=== PATIENT | male | born 1965 | race Caucasian/White ===

== ENCOUNTER → 2017-04-20 | Outpatient (CLI) | payer BC ==
--- NOTE | 2017-04-21 07:53 | US ---
EXAMINATION TYPE: US bladder DATE OF EXAM: 04/20/2017 COMPARISON: NONE CLINICAL HISTORY: R35.0 Increased frequency of urine. Patient stated has decreased urinary output, no t urinary frequency. EXAM MEASUREMENTS: Post Void Residual Volume: 4.2 mL Color Doppler performed to assess ureteral jets. Bilateral Jets seen: only right jet was seen, left jet not seen after 3 minute observation. Normal Post Void Residual (less than 50ml): yes Bladder is initially poorly distended without intraluminal mass or wall thickening. Distal right jet was identified. Distal left jet is not seen. Minimal residual urine is seen after voiding. IMPRESSION: As above.
== END | disposition home or self-care (01) ==
LOC: RADUSWWP 15:49
PROVIDERS: ATTEND Family Medicine
DX: R35.0 Frequency of micturition (principal)
CPT/HCPCS: 76857

== ENCOUNTER 2017-07-29 09:20 | Emergency (ER) | payer BC ==
[2017-07-29 09:32] VITALS: RESP 18; TEMP 97.3
--- NOTE | 2017-07-29 10:29 | XR ---
EXAMINATION TYPE: XR knee complete LT DATE OF EXAM: 07/29/2017 COMPARISON: NONE HISTORY: Pain TECHNIQUE: Four views are submitted. FINDINGS: Advanced arthropathy of the knee and patellofemoral joints. Hypertrophic spurring noted. Findings are compatible osteoarthritis. No erosive change or acute fracture. Bony densities are seen within the s uprapatellar bursa and also within the anterior margin of the knee joint. Loose bodies in the differe ntial diagnosis. IMPRESSION: 1. Severe osteoarthritis 2. Small suprapatellar joint effusion with probable loose bodies.
[2017-07-29 10:49] VITALS: BP 127/66; PULSE 74
--- NOTE | 2017-07-29 10:56 | ED ---
General Adult HPI - General Chief complaint: Extremity Injury, Lower Stated complaint: knee pain Time Seen by Provider: 07/29/17 09:56 Source: patient, RN notes reviewed Mode of arrival: wheelchair Limitations: no limitations - History of Present Illness Initial comments: 51-year-old male who presents emergency room today with a chief complaint of injury to the left knee that occurred 1 day ago. Patient does admit that he was walking yesterday stepped wrong felt a pop in the left knee. He does admit to some difficulty ambulating today. He doesn't some mild swelling. Patient denies any other complaints or associated symptoms at this time. Patient denies any recent fever, chills, shortness of breath, chest pain, back pain, abdominal pain, nausea or vomiting, numbness or tingling, dysuria or hematuria, constipation or diarrhea, headaches or visual changes, or any other complaints. - Related Data Home Medications Medication Instructions Recorded Confirmed Ibuprofen [Motrin] 400 mg PO Q6HR PRN 07/29/17 07/29/17 Allergies Allergy/AdvReac Type Severity Reaction Status Date / Time No Known Allergies Allergy Verified 07/29/17 10:40 Review of Systems ROS Statement: Those systems with pertinent positive or pertinent negative responses have been documented in the HPI. ROS Other: All systems not noted in ROS Statement are negative. Past Medical History Past Medical History: Asthma, COPD, Musculoskeletal Disorder, Sleep Apnea/CPAP/ BIPAP Additional Past Medical History / Comment(s): Morbid obesity History of Any Multi-Drug Resistant Organisms: None Reported Past Surgical History: Appendectomy, Orthopedic Surgery, Tonsillectomy Additional Past Surgical History / Comment(s): bilateral knee arthroscopy, surgery for sleep apnea, carpal tunnel , uvula and adnoids removed for sleep apnea Past Anesthesia/Blood Transfusion Reactions: No Reported Reaction Past Psychological History: No Psychological Hx Reported Smoking Status: Former smoker Past Alcohol Use History: None Reported Past Drug Use History: None Reported - Past Family History Mother History Unknown: Yes Family Medical History: Deep Vein Thrombosis (DVT) General Exam - General Exam Comments Initial Comments: General: The patient is awake and alert, in no distress, and does not appear acutely ill. Neck: The neck is supple, there is no tenderness or JVD. Cardiovascular: There is a regular rate and rhythm. No murmur, rub or gallop is appreciated. Respiratory: Lungs are clear to auscultation, respirations are non-labored, breath sounds are equal. No wheezes, stridor, rales, or rhonchi. Musculoskeletal: Patient does have normal appearance of the left knee no obvious deformity. He does have limited range of motion of due to pain. Patient tender to palpation on the medial aspect. Her sensations are intact. Pulses are equal bilaterally 2+. Strength is 4/5 due to pain. Neurological: A&O x 3. CN II-XII intact, There are no obvious motor or sensory deficits. Coordination appears grossly intact. Speech is normal. Skin: Skin is warm and dry and no rashes or lesions are noted. Psychiatric: Normal mood and affect. Limitations: no limitations Course Vital Signs 07/29/17 09:30 Temperature 97.3 F L Pulse Rate 89 Respiratory 18 Rate Blood Pressure 134/88 O2 Sat by Pulse 96 Oximetry Medical Decision Making - Medical Decision Making X-rays are reviewed and shows no acute fracture dislocation. There is evidence for probable loose bodies. Patient will have a knee immobilizer placed advised follow-up with orthopedics. Advised continued ice elevate the affected area. Patient states understanding and is in agreement. Disposition Clinical Impression: Knee injury Disposition: HOME SELF-CARE Condition: Good Instructions: Knee Pain (ED) Additional Instructions: Please use knee immobilizer up and moving around. Please follow-up with the orthopedic doctor over the next 2 days for symptoms. Please continue to ice elevate the affected area and use ibuprofen for pain. History emergency room for any other concerns or competitions. Referrals: Alfredo Hope DO [Primary Care Provider] - 1-2 days Andre Mcnamara MD [STAFF PHYSICIAN] - 1-2 days Time of Disposition: 10:50
== END 2017-07-29 11:11 | disposition home or self-care (01) ==
LOC: EC 09:20
DX: S89.92XA Unspecified injury of left lower leg, initial encounter (principal); G47.30 Sleep apnea, unspecified; Z99.89 Dependence on other enabling machines and devices; Z98.890 Other specified postprocedural states; Z87.891 Personal history of nicotine dependence; Y93.01 Activity, walking, marching and hiking
CPT/HCPCS: 73562; 99283; L1830

== ENCOUNTER 2018-07-01 21:01 | Inpatient (IN) | payer BC ==
[2018-07-01] MEDS ORDERED: ALBUTEROL NEBULIZED 2.5 MG/3 ML INHALATION STA (21:15)
[2018-07-01] MEDS ORDERED: DEXAMETHASONE SOD PHOSPHATE 10 MG/ML 1 ML VIAL IV STA (21:15)
[2018-07-01] MEDS ORDERED: ACETAMINOPHEN IV (For NPO) 1,000 MG in EMPTY BAG 1 BAG IVPB STA (21:37)
[2018-07-01 21:41] LABS: Basophils % (A) 0 %; Eosinophils # (A) 0.2 k/uL (0-0.7); Eosinophils % (A) 1 %; HCT 53.4 % (39.0-53.0); HGB 16.1 gm/dL (13.0-17.5); Hypochromasia Slight; Lymphocytes # (A) 0.9 k/uL (1.0-4.8); Lymphocytes % (A) 6 %; MCH 27.5 pg (25.0-35.0); MCHC 30.2 g/dL (31.0-37.0); MCV 91.2 fL (80.0-100.0); Mean Platelet Volume 6.8; Monocytes # (A) 0.3 k/uL (0-1.0); Monocytes % (A) 2 %; Neutrophils # (A) 12.7 k/uL (1.3-7.7); Neutrophils % (A) 90 %; Platelet Count 263 k/uL (150-450); RBC 5.86 m/uL (4.30-5.90); RDW 13.9 % (11.5-15.5); WBC 14.1 k/uL (3.8-10.6)
[2018-07-01 21:50] LABS: INR 0.9 (<1.2); Partial Thromboplastin Time 22.2 sec (22.0-30.0); Prothrombin Time 9.4 sec (9.0-12.0)
--- NOTE | 2018-07-01 21:53 | XR ---
EXAMINATION TYPE: XR chest 1V portable DATE OF EXAM: 07/01/2018 COMPARISON: 03/29/2016 HISTORY: Asthma. COPD. Chest pain TECHNIQUE: Single frontal view of the chest is obtained. FINDINGS: There is moderate consolidation in the left mid lung. The right lung is fairly clear. Ther e is no heart failure. IMPRESSION: There is new large area of consolidation in the left lung compared to old exam and consi stent with bronchopneumonia.
[2018-07-01] MEDS ORDERED: cefTRIAXone IN SWFI 2,000 MG/20 ML SYRINGE IVP STA (21:57)
[2018-07-01] MEDS ORDERED: AZITHROMYCIN 500 MG in DEXTROSE 5% IN WATER 250 ML IVPB STA ×2 (21:57)
[2018-07-01 22:04] LABS: ALT 31 U/L (21-72); AST 26 U/L (17-59); Alkaline Phosphatase 99 U/L (38-126); Anion Gap 9 mmol/L; Blood Urea Nitrogen 10 mg/dL (9-20); Carbon Dioxide 31 mmol/L (22-30); Chloride 100 mmol/L (98-107); Glucose 165 mg/dL (74-99); Potassium 4.3 mmol/L (3.5-5.1); Sodium 140 mmol/L (137-145); Total Bilirubin 0.6 mg/dL (0.2-1.3); Total Protein 6.7 g/dL (6.3-8.2)
[2018-07-01 22:09] LABS: Creatine Kinase 84 U/L (55-170)
[2018-07-01 22:20] LABS: Creatine Kinase MB 2.3 ng/mL (0.0-2.4); Troponin I <0.012 ng/mL (0.000-0.034)
[2018-07-01] MEDS ORDERED: SODIUM CHLORIDE 0.9% 1,000 ML IV ONE (22:25)
[2018-07-01] MEDS ORDERED: IPRATROPIUM-ALBUTEROL 3 ML NEB INHALATION PRN ×2 (22:29→23:53)
[2018-07-01] MEDS ORDERED: SODIUM CHLORIDE 0.9% 1,000 ML IV SCH (22:30)
[2018-07-01] MEDS ORDERED: ACETAMINOPHEN TAB 325 MG TAB PO PRN (22:31)
[2018-07-01] MEDS ORDERED: VANCOMYCIN IV PER PHARMACY 1 EACH MISC MISCELLANE PRN (22:32)
--- NOTE | 2018-07-01 22:38 | ED ---
General Adult HPI - General Chief complaint: Shortness of Breath Stated complaint: asthma attack Time Seen by Provider: 07/01/18 21:05 Source: patient, RN notes reviewed, old records reviewed Mode of arrival: wheelchair Limitations: physical limitation - History of Present Illness Initial comments: 52-year-old male presenting with cough and dyspnea. Patient states he has baseline dyspnea secondary to COPD. He states that he developed worsening dyspnea and productive cough over the past 12 hours. Cough is productive of blood-tinged sputum. Patient states he did have some preceding dyspnea although this was atypical for the patient. Patient denies chest pain. Denies abdominal pain. Denies nausea vomiting. Denies lower extremity swelling. No history of CAD or CHF. He does have history of COPD and sleep apnea. - Related Data Home Medications Medication Instructions Recorded Confirmed Furosemide [Lasix] 40 mg PO BID 07/01/18 07/01/18 Spironolactone [Aldactone] 25 mg PO DAILY 07/01/18 07/01/18 Allergies Allergy/AdvReac Type Severity Reaction Status Date / Time No Known Allergies Allergy Verified 07/01/18 21:41 Review of Systems ROS Statement: Those systems with pertinent positive or pertinent negative responses have been documented in the HPI. ROS Other: All systems not noted in ROS Statement are negative. Past Medical History Past Medical History: Asthma, Heart Failure, COPD, Musculoskeletal Disorder, Sleep Apnea/CPAP/BIPAP Additional Past Medical History / Comment(s): Morbid obesity, History of Any Multi-Drug Resistant Organisms: None Reported Past Surgical History: Appendectomy, Orthopedic Surgery, Tonsillectomy Additional Past Surgical History / Comment(s): bilateral knee arthroscopy, surgery for sleep apnea, carpal tunnel , uvula and adnoids removed for sleep apnea, Past Anesthesia/Blood Transfusion Reactions: No Reported Reaction Past Psychological History: No Psychological Hx Reported Smoking Status: Former smoker Past Alcohol Use History: None Reported Past Drug Use History: None Reported - Past Family History Mother History Unknown: Yes Family Medical History: Deep Vein Thrombosis (DVT) General Exam Limitations: physical limitation General appearance: alert, in no apparent distress Head exam: Present: atraumatic, normocephalic Eye exam: Present: normal appearance, PERRL ENT exam: Present: normal exam Neck exam: Present: normal inspection. Absent: tenderness, meningismus Respiratory exam: Present: respiratory distress, wheezes, rhonchi, decreased breath sounds Cardiovascular Exam: Present: normal rhythm, tachycardia GI/Abdominal exam: Present: soft. Absent: distended, tenderness, guarding Extremities exam: Present: normal inspection, normal capillary refill. Absent: pedal edema Neurological exam: Present: alert, oriented X3, CN II-XII intact. Absent: motor sensory deficit Psychiatric exam: Present: normal affect, normal mood Skin exam: Present: warm, dry, intact. Absent: cyanosis, diaphoretic Course Vital Signs 07/01/18 07/01/18 07/01/18 21:04 21:15 21:30 Temperature 101.2 F H Pulse Rate 121 H 114 H Respiratory 36 H Rate Blood Pressure 161/89 O2 Sat by Pulse 73 L 83 L Oximetry 07/01/18 07/01/18 07/01/18 21:48 21:50 22:16 Temperature 99.3 F Pulse Rate 118 H 116 H 119 H Respiratory 28 H 28 H Rate Blood Pressure 156/72 148/70 O2 Sat by Pulse 94 L 91 L Oximetry EKG Findings - EKG Comments: EKG Findings:: EKG: Sinus tachycardia, baseline artifact secondary to tremor, incomplete right bundle, rate of 122, MO interval 134, QRS duration 110, QTC 447 Medical Decision Making - Medical Decision Making 52-year-old male presenting with severe cough and dyspnea. Initially patient is tachypneic, hypoxic, tachycardic and febrile. Patient has bilateral rhonchi and decreased breath sounds. He is coughing up blood-tinged sputum. Chest x- ray obtained, there is near complete consolidation of the left lung. Patient is given IV hydration, albuterol, steroids, and started on antibiotics to cover community-acquired pneumonia in the emergency department. He is also placed on BiPAP for respiratory support. His oxygenation does improve with BiPAP. He has an elevated white blood cell count 14, stable hemoglobin, negative troponin and BNP. CO2 is 31 consistent with some chronic retention of carbon dioxide. Patient will be admitted for continued IV antibiotics. He will be continued on albuterol as well as steroids. Pulmonology placed on consult. He will be admitted to a monitored bed. - Lab Data Result diagrams: 07/01/18 21:19 07/01/18 21:19 Lab Results 07/01/18 07/01/18 07/01/18 Range/Units 21:19 21:19 21:19 WBC 14.1 H (3.8-10.6) k/uL RBC 5.86 (4.30-5.90) m/uL Hgb 16.1 (13.0-17.5) gm/dL Hct 53.4 H (39.0-53.0) % MCV 91.2 (80.0-100.0) fL MCH 27.5 (25.0-35.0) pg MCHC 30.2 L (31.0-37.0) g/dL RDW 13.9 (11.5-15.5) % Plt Count 263 (150-450) k/uL Neutrophils % 90 % Lymphocytes % 6 % Monocytes % 2 % Eosinophils % 1 % Basophils % 0 % Neutrophils # 12.7 H (1.3-7.7) k/uL Lymphocytes # 0.9 L (1.0-4.8) k/uL Monocytes # 0.3 (0-1.0) k/uL Eosinophils # 0.2 (0-0.7) k/uL Basophils # 0.0 (0-0.2) k/uL Hypochromasia Slight PT (9.0-12.0) sec INR (<1.2) APTT (22.0-30.0) sec Sodium 140 (137-145) mmol/L Potassium 4.3 (3.5-5.1) mmol/L Chloride 100 (98-107) mmol/L Carbon Dioxide 31 H (22-30) mmol/L Anion Gap 9 mmol/L BUN 10 (9-20) mg/dL Creatinine 0.60 L (0.66-1.25) mg/dL Est GFR (CKD-EPI)AfAm >90 (>60 ml/min/1.73 sqM) Est GFR (CKD-EPI)NonAf >90 (>60 ml/min/1.73 sqM) Glucose 165 H (74-99) mg/dL Plasma Lactic Acid Dionicio (0.7-2.0) mmol/L Calcium 9.0 (8.4-10.2) mg/dL Total Bilirubin 0.6 (0.2-1.3) mg/dL AST 26 (17-59) U/L ALT 31 (21-72) U/L Alkaline Phosphatase 99 (38-126) U/L Total Creatine Kinase 84 (55-170) U/L CK-MB (CK-2) 2.3 (0.0-2.4) ng/mL CK-MB (CK-2) Rel Index 2.7 Troponin I <0.012 (0.000-0.034) ng/mL NT-Pro-B Natriuret Pep pg/mL Total Protein 6.7 (6.3-8.2) g/dL Albumin 4.0 (3.5-5.0) g/dL 07/01/18 07/01/18 07/01/18 Range/Units 21:19 21:19 21:19 WBC (3.8-10.6) k/uL RBC (4.30-5.90) m/uL Hgb (13.0-17.5) gm/dL Hct (39.0-53.0) % MCV (80.0-100.0) fL MCH (25.0-35.0) pg MCHC (31.0-37.0) g/dL RDW (11.5-15.5) % Plt Count (150-450) k/uL Neutrophils % % Lymphocytes % % Monocytes % % Eosinophils % % Basophils % % Neutrophils # (1.3-7.7) k/uL Lymphocytes # (1.0-4.8) k/uL Monocytes # (0-1.0) k/uL Eosinophils # (0-0.7) k/uL Basophils # (0-0.2) k/uL Hypochromasia PT 9.4 (9.0-12.0) sec INR 0.9 (<1.2) APTT 22.2 (22.0-30.0) sec Sodium (137-145) mmol/L Potassium (3.5-5.1) mmol/L Chloride (98-107) mmol/L Carbon Dioxide (22-30) mmol/L Anion Gap mmol/L BUN (9-20) mg/dL Creatinine (0.66-1.25) mg/dL Est GFR (CKD-EPI)AfAm (>60 ml/min/1.73 sqM) Est GFR (CKD-EPI)NonAf (>60 ml/min/1.73 sqM) Glucose (74-99) mg/dL Plasma Lactic Acid Dionicio 1.4 (0.7-2.0) mmol/L Calcium (8.4-10.2) mg/dL Total Bilirubin (0.2-1.3) mg/dL AST (17-59) U/L ALT (21-72) U/L Alkaline Phosphatase (38-126) U/L Total Creatine Kinase (55-170) U/L CK-MB (CK-2) (0.0-2.4) ng/mL CK-MB (CK-2) Rel Index Troponin I (0.000-0.034) ng/mL NT-Pro-B Natriuret Pep 366 pg/mL Total Protein (6.3-8.2) g/dL Albumin (3.5-5.0) g/dL Critical Care Time Critical Care Time: Yes Total Critical Care Time: 35 Disposition Clinical Impression: Acute exacerbation of chronic obstructive airways disease, Community acquired pneumonia, Community acquired bacterial pneumonia Disposition: ADMITTED IP TO THIS [facility] Condition: Serious Is patient prescribed a controlled substance at d/c from ED?: No Referrals: Alfredo Hope DO [Primary Care Provider] - 1-2 days Decision to Admit Reason: Admit from EC Decision Date: 07/01/18 Decision Time: 22:38
[2018-07-01] MEDS ORDERED: VANCOMYCIN 2,500 MG in SODIUM CHLORIDE 0.9% 500 ML IVPB ONE (23:00)
[2018-07-01] MEDS ORDERED: MELATONIN 3 MG TABLET PO PRN (23:53)
[2018-07-02] MEDS: FUROSEMIDE 40 MG TAB PO SCH ×3 (00:17→19:55)
[2018-07-02] MEDS: methylPREDNISolone SOD SUCCI 125 MG/2 ML VIAL IV SCH ×4 (00:51→17:08)
[2018-07-02 03:48] VITALS: BMI 54.8
[2018-07-02 06:27] LABS: Basophils % (A) 0 %; Eosinophils # (A) 0.1 k/uL (0-0.7); Eosinophils % (A) 1 %; HCT 44.6 % (39.0-53.0); HGB 14.4 gm/dL (13.0-17.5); Hypochromasia Slight; Lymphocytes # (A) 0.3 k/uL (1.0-4.8); Lymphocytes % (A) 2 %; MCH 28.9 pg (25.0-35.0); MCHC 32.3 g/dL (31.0-37.0); MCV 89.5 fL (80.0-100.0); Mean Platelet Volume 7.1; Monocytes # (A) 0.3 k/uL (0-1.0); Monocytes % (A) 2 %; Neutrophils # (A) 15.9 k/uL (1.3-7.7); Neutrophils % (A) 95 %; Platelet Count 258 k/uL (150-450); RBC 4.99 m/uL (4.30-5.90); RDW 13.9 % (11.5-15.5); WBC 16.7 k/uL (3.8-10.6)
[2018-07-02 06:46] LABS: Anion Gap 6 mmol/L; Blood Urea Nitrogen 10 mg/dL (9-20); Carbon Dioxide 30 mmol/L (22-30); Chloride 102 mmol/L (98-107); Glucose 202 mg/dL (74-99); Potassium 4.4 mmol/L (3.5-5.1); Sodium 138 mmol/L (137-145)
[2018-07-02] MEDS: IPRATROPIUM-ALBUTEROL 3 ML NEB INHALATION SCH ×4 (07:50→19:38)
[2018-07-02] MEDS: VANCOMYCIN 2,000 MG in SODIUM CHLORIDE 0.9% 500 ML IVPB SCH ×2 (08:48→17:08)
[2018-07-02] MEDS ORDERED: SPIRONOLACTONE 25 MG TAB PO SCH (09:00)
[2018-07-02] MEDS ORDERED: RX INFO: IV CONTRAST WAS GIVEN 1 EACH MISC MISCELLANE PRN (10:28)
[2018-07-02 10:30] LABS: Appearance,Urine Clear (Clear); Bilirubin,Urine Negative (Negative); Blood,Urine Negative (Negative); Color,Urine Light Yellow; Glucose,Urine (UA) Negative (Negative); Ketones,Urine Negative (Negative); Leukocyte Esterase,Urine Negative (Negative); Nitrite,Urine Negative (Negative); PH, Urine 6.5 (5.0-8.0); Protein,Urine Negative (Negative); Specific Gravity,Urine 1.008 (1.001-1.035); Urobilinogen,Urine <2.0 mg/dL (<2.0)
--- NOTE | 2018-07-02 12:02 | CT ---
EXAMINATION TYPE: CT chest w con DATE OF EXAM: 07/02/2018 COMPARISON: Previous study dated 10/10/2010. HISTORY: SOB, pneumonia CT DLP: 889.6 mGycm Automated exposure control for dose reduction was used. CONTRAST: CT scan of the chest is performed with IV Contrast, patient injected with 100 mL of Isovue 300. FINDINGS: There are patchy areas of consolidation in both upper lobes worse on the left than the righ t. There is also some consolidation in the lower lobe on the left. The major bronchi are patent. There is no significant axillary, mediastinal or hilar adenopathy. There is no pleural or pericardial fluid. The heart is not enlarged. Visualized portions of the upper abdomen are unremarkable. There is hypertrophic spondylosis within the spine. IMPRESSION: 1. BILATERAL PNEUMONIA, WORSE ON THE LEFT THAN THE RIGHT. 2. DEGENERATIVE CHANGE WITHIN THE SPINE.
[2018-07-02] MEDS: cefTRIAXone IN SWFI 1,000 MG/10 ML SYRINGE IVP SCH (19:55)
[2018-07-02] MEDS: AZITHROMYCIN 500 MG in DEXTROSE 5% IN WATER 250 ML IVPB SCH ×2 (21:37)
[2018-07-02] MEDS ORDERED: LACTULOSE 20 GM/30 ML CUP PO PRN (22:47)
[2018-07-02] MEDS ORDERED: LORazepam 0.5 MG TAB PO PRN (22:47)
[2018-07-02] MEDS ORDERED: CALCIUM CARBONATE 500 MG CHEWABLE PO PRN (22:47)
[2018-07-02] MEDS ORDERED: ONDANSETRON 4 MG/2 ML VIAL IVP PRN (22:47)
[2018-07-02] MEDS ORDERED: NALOXONE 0.4 MG/ML 1 ML VIAL IV PRN (22:47)
[2018-07-02] MEDS ORDERED: MAGNESIUM HYDROXIDE 2,400 MG/10 ML CUP PO PRN (22:47)
--- NOTE | 2018-07-02 23:36 | HP ---
HISTORY AND PHYSICAL DATE OF SERVICE: 07/02/2018 PRESENTING COMPLAINT: Cough, blood in the sputum. HISTORY OF PRESENT COMPLAINT: A pleasant 52-year-old patient of Dr. Hope whose chronic stable medical conditions include morbid obesity, obstructive sleep apnea, COPD, being an ex-smoker. The patient presented after he had gone to work as usual, then started becoming very, very short of breath, coughing up blood with sputum, had a fever; tired, run down, some short of breath, some wheezing, run down. The patient came to the ER. Chest x-ray followed by CT scan showed bilateral pneumonia, more so on the left side. Postop antibiotics, including ceftriaxone and Zithromax. Later in the evening, patient's blood cultures come back coming back positive for gram-positive and vancomycin was also on board. The patient is feeling tired and run down. Appetite has gone down. REVIEW OF SYSTEMS: CONSTITUTIONAL: Weak, tired, febrile. HEENT: None. RESPIRATORY: As above. CARDIOVASCULAR: None. GASTROINTESTINAL: None. GENITOURINARY: None. MUSCULOSKELETAL: Some pain in the knees. DERMATOLOGICAL: None. HEMATOLOGIC: None. LYMPHATIC: None. PSYCHIATRY: None. NEUROLOGICAL: None. PAST MEDICAL HISTORY: COPD, sleep apnea, morbid obesity, osteoarthritis, especially of the knee. PAST SURGICAL HISTORY: Appendectomy, tonsillectomy, bilateral knee arthroscopy, surgery for sleep apnea, carpal tunnel, uvula and adenoids. SOCIAL HISTORY: The patient smoked for about 30 years, stopped in 2006. Lives by himself. 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 FAMILY HISTORY: DVT. HOME MEDICATIONS: 1. Aldactone 25 mg a day. 2. Lasix 40 mg b.i.d. ALLERGIES: None. EXAMINATION: VITAL SIGNS: On presentation, temperature 101.2, pulse 121, respiration 36, blood pressure 160/89, pulse ox 93% on 4L. GENERAL APPEARANCE: Morbidly obese, BMI 58.8. Lying in bed, tired-appearing. EYES: Pupil equal. Conjunctivae normal. HEENT: External appearance of nose and ears normal. Oral cavity normal. NECK: JVD not raised. Mass not palpable. RESPIRATORY: Effort increased. LUNGS: Diminished breath sounds, prolonged expiration, wheezing. CARDIOVASCULAR: First and second sounds normal. No edema. ABDOMEN: Distended, soft. Liver and spleen not palpable. LYMPHATIC: No lymph node palpable in neck or axillae. PSYCHIATRY: Alert and oriented x3. Mood and affect normal. NEUROLOGICAL: Pupils equal. Cranial nerves grossly intact. Power and sensation grossly intact. INVESTIGATIONS: White count 16.7, hemoglobin 14.4, left shift. Potassium 4.4, BUN and creatinine are normal. ProBNP 366. Chest x-ray film interpreted by me shows bilateral infiltrates, more so on the left side. EKG film interpreted by me shows sinus tachycardia, incomplete right bundle branch block and also blood cultures showing gram-positive cocci in groups. ASSESSMENT: 1. Acute severe bilateral pneumonia with severe sepsis present on admission with blood cultures positive for gram-positive cocci in groups. 2. Acute chronic obstructive pulmonary disease exacerbation in an ex-smoker. 3. Morbid obesity, BMI 58.8. 4. Obstructive sleep apnea. PLAN: Patient is on IV ceftriaxone, azithromycin, IV vancomycin, nebulized bronchodilators, IV Solu-Medrol. Hold off the diuretics and carefully give the patient fluids. Care was discussed with the patient. Pulmonary was consulted. Repeat labs in the morning. MMODL / IJN: [id number] /
[2018-07-03] MEDS: VANCOMYCIN 2,000 MG in SODIUM CHLORIDE 0.9% 500 ML IVPB SCH (02:00)
[2018-07-03] MEDS: LACTATED RINGERS 1,000 ML IV SCH ×2 (02:01→13:27)
[2018-07-03] MEDS: methylPREDNISolone SOD SUCCI 40 MG/ML 1 ML VIAL IV SCH ×4 (02:02→22:50)
[2018-07-03 06:01] LABS: Glucose,Whole Blood 277 mg/dL (75-99)
[2018-07-03] MEDS ORDERED: VANCOMYCIN TROUGH DUE 1 EACH MISC MISCELLANE ONE (07:00)
[2018-07-03 07:01] LABS: Anion Gap 6 mmol/L; Blood Urea Nitrogen 11 mg/dL (9-20); Calcium 8.8 mg/dL (8.4-10.2); Carbon Dioxide 35 mmol/L (22-30); Chloride 99 mmol/L (98-107); Cholesterol 136 mg/dL (<200); Glucose 257 mg/dL (74-99); HDL Cholesterol 58 mg/dL (40-60); Potassium 4.6 mmol/L (3.5-5.1); Sodium 140 mmol/L (137-145); Triglycerides 58 mg/dL (<150)
[2018-07-03 07:14] LABS: Basophils % (A) 0 %; Eosinophils % (A) 0 %; HCT 43.7 % (39.0-53.0); HGB 12.9 gm/dL (13.0-17.5); Hypochromasia Marked; Lymphocytes # (A) 0.4 k/uL (1.0-4.8); Lymphocytes % (A) 3 %; MCH 27.3 pg (25.0-35.0); MCHC 29.4 g/dL (31.0-37.0); MCV 92.6 fL (80.0-100.0); Mean Platelet Volume 7.3; Monocytes # (A) 0.5 k/uL (0-1.0); Monocytes % (A) 3 %; Neutrophils # (A) 12.7 k/uL (1.3-7.7); Neutrophils % (A) 93 %; Platelet Count 258 k/uL (150-450); RBC 4.72 m/uL (4.30-5.90); WBC 13.6 k/uL (3.8-10.6)
[2018-07-03] MEDS ORDERED: VANCOMYCIN IV PER PHARMACY 1 EACH MISC MISCELLANE PRN (07:21)
[2018-07-03] MEDS: IPRATROPIUM-ALBUTEROL 3 ML NEB INHALATION SCH ×4 (07:37→19:56)
--- NOTE | 2018-07-03 11:19 | P.CNPUL ---
History of Present Illness Consult date: 07/03/18 Reason for consult: dyspnea, pneumonia History of present illness: This is a 52-year-old male patient, morbidly obese with known history of obstructive sleep apnea COPD who was seen in consultation yesterday however we felt to produce a note or dictate on him. However we saw him in consultation and we ordered a CAT scan of the chest confirmed the presence of bilateral pneumonia left more than right more so in the left upper and left lower lobe. The patient was coughing up blood-tinged sputum and this was typical of a pneumococcal pneumonia. The patient is currently on accommodation of Rocephin and Zithromax and vancomycin. He is afebrile. He is hemodynamically stable. He is feeling better compared to yesterday. Is less short of breath. No pleurisy or hemoptysis. He has some limited wheezing for which is on bronchodilators and steroids. No recurrent pneumonias. He has ulcerative sleep apnea, but he does not use any CPAP therapy. No sick contacts. No travel history. Legionella urine antigen was sent. Blood culture was sent. Overall is feeling better compared to yesterday. He was feeling extremely tired and weak. This was a acute onset and the patient got sick within the past 24 hours. Review of Systems Constitutional: Reports fatigue, Reports fever, Reports weakness Eyes: denies blurred vision, denies bulging eye, denies decreased vision Ears: deny: decreased hearing, ear discharge, earache, tinnitus Ears, nose, mouth and throat: Denies headache, Denies sore throat Cardiovascular: Reports decreased exercise tolerance, Reports dyspnea on exertion Respiratory: Reports dyspnea, Reports hemoptysis Gastrointestinal: Denies abdominal pain, Denies diarrhea, Denies nausea, Denies vomiting Genitourinary: Reports as per HPI Musculoskeletal: Reports as per HPI Musculoskeletal: absent: ankle pain, ankle stiffness, ankle swelling Integumentary: Denies pruritus, Denies rash Neurological: Reports weakness Psychiatric: Denies anxiety, Denies depression Endocrine: Reports fatigue Hematologic/Lymphatic: Reports as per HPI Allergic/Immunologic: Reports as per HPI Past Medical History Past Medical History: Asthma, Heart Failure, COPD, Musculoskeletal Disorder, Sleep Apnea/CPAP/BIPAP Additional Past Medical History / Comment(s): Morbid obesity, History of Any Multi-Drug Resistant Organisms: None Reported Past Surgical History: Appendectomy, Orthopedic Surgery, Tonsillectomy Additional Past Surgical History / Comment(s): bilateral knee arthroscopy, surgery for sleep apnea, carpal tunnel , uvula and adnoids removed for sleep apnea, Past Anesthesia/Blood Transfusion Reactions: No Reported Reaction Past Psychological History: No Psychological Hx Reported Smoking Status: Former smoker Past Alcohol Use History: None Reported Past Drug Use History: None Reported - Past Family History Mother History Unknown: Yes Family Medical History: Deep Vein Thrombosis (DVT) Medications and Allergies Home Medications Medication Instructions Recorded Confirmed Type Furosemide [Lasix] 40 mg PO BID 07/01/18 07/01/18 History Spironolactone [Aldactone] 25 mg PO DAILY 07/01/18 07/01/18 History Allergies Allergy/AdvReac Type Severity Reaction Status Date / Time No Known Allergies Allergy Verified 07/01/18 21:41 Physical Exam Vitals: Vital Signs Temp Pulse Pulse Resp BP Pulse Ox 07/03/18 11:07 110 H 07/03/18 08:00 99 F 114 H 19 159/107 94 L 07/03/18 07:51 105 H 07/03/18 07:38 110 H 97 07/03/18 04:00 98.5 F 106 H 22 152/96 96 07/03/18 00:00 98.2 F 111 H 20 155/93 95 07/02/18 20:00 118 H 20 07/02/18 19:51 112 H 07/02/18 19:50 118 H 20 123/71 98 07/02/18 19:39 114 H 20 96 07/02/18 16:20 110 H 07/02/18 16:10 115 H 16 07/02/18 16:00 98.7 F 115 H 19 124/77 93 L 07/02/18 13:06 102 H 07/02/18 12:55 103 H 07/02/18 12:00 98.3 F 110 H 17 124/76 92 L Intake and Output 07/02/18 07/03/18 07/03/18 22:59 06:59 14:59 Intake Total 500 Output Total 900 4000 Balance -400 -4000 Intake: Intake, IV Titration 500 Amount Vancomycin 2,000 mg In 500 Sodium Chloride 0.9% 500 ml @ 167 mls/hr IVPB Q8H [facility] Rx#:[id number] Output: Urine 900 4000 Other: Weight 169.9 kg Morbidly obese, comfortable likely distress Head exam was generally normal. There was no scleral icterus or corneal arcus. Mucous membranes were moist. Neck was supple and without jugular venous distension, thyromegaly, or carotid bruits. Carotids were easily palpable bilaterally. There was no adenopathy., Mallampati class IV Cardiac exam revealed the PMI to be normally situated and sized. The rhythm was regular and no extrasystoles were noted during several minutes of auscultation. The first and second heart sounds were normal and physiologic splitting of the second heart sound was noted. There were no murmurs, rubs, clicks, or gallops. Lungs sounds are diminished bilaterally along with some few scattered expiratory wheezes bilaterally and crackles on the right compared to left Abdominal exam revealed normal bowel sounds. The abdomen was soft, non-tender, and without masses, organomegaly, or appreciable enlargement of the abdominal aorta. Examination of the extremities revealed easily palpable radial, femoral and pedal pulses. There was no cyanosis, clubbing or edema. Examination of the skin revealed no evidence of significant rashes, suspicious appearing nevi or other concerning lesions. Neurologically awake and alert and there is no focal neurological deficits. Results Assessment 1 acute bilateral pneumonia left more than right, community-acquired, likely bacterial, likely pneumococcal, awaiting further cultures 2 acute hypoxic respiratory failure secondary to above 3 acute COPD exacerbation secondary to above 4 morbid obesity with a BMI of 58.8 5 obstructive sleep apnea Plan Continue same antibiotic coverage. Awaiting results of the sputum and the blood cultures. CAT scan of the chest was noted and there is no evidence of malignancy. Legionella urine antigen. Continue bronchodilators and steroids. Repeat chest x-ray in a.m. Clinically improving. We'll continue to follow. - Laboratory Findings CBC and BMP: 07/03/18 06:13 07/03/18 06:13 PT/INR, D-dimer PT 9.4 sec (9.0-12.0) 07/01/18 21:19 INR 0.9 (<1.2) 07/01/18 21:19 Abnormal lab findings: Abnormal Labs 07/01/18 07/01/18 07/02/18 21:19 21:19 06:05 WBC 14.1 H 16.7 H Hgb Hct 53.4 H MCHC 30.2 L Neutrophils # 12.7 H 15.9 H Lymphocytes # 0.9 L 0.3 L Carbon Dioxide 31 H Creatinine 0.60 L Glucose 165 H POC Glucose (mg/dL) Vancomycin Trough 07/02/18 07/03/18 07/03/18 06:05 05:57 06:13 WBC 13.6 H Hgb 12.9 L Hct MCHC 29.4 L Neutrophils # 12.7 H Lymphocytes # 0.4 L Carbon Dioxide Creatinine Glucose 202 H POC Glucose (mg/dL) 277 H Vancomycin Trough 07/03/18 07/03/18 06:13 06:13 WBC Hgb Hct MCHC Neutrophils # Lymphocytes # Carbon Dioxide 35 H Creatinine Glucose 257 H POC Glucose (mg/dL) Vancomycin Trough 32.0 H* - Diagnostic Findings Chest x-ray: image reviewed CT scan - chest: image reviewed
[2018-07-03 12:01] LABS: Glucose,Whole Blood 219 mg/dL (75-99)
[2018-07-03 16:54] LABS: Glucose,Whole Blood 165 mg/dL (75-99)
--- NOTE | 2018-07-03 18:29 | PN ---
PROGRESS NOTE DATE OF SERVICE: 07/03/18. PRESENTING COMPLAINT: Cough, short of breath. INTERVAL HISTORY: This patient with bilateral severe pneumonia with sepsis, cough and bloody sputum easily coming down. Appetite is getting better. Lying in bed tired. REVIEW OF SYSTEMS: Done for constitutional, cardiovascular, GI, pulmonary; relevant findings as above. CURRENT MEDICATIONS: Reviewed and include IV azithromycin, IV Solu-Medrol, ceftriaxone. EXAMINATION: Afebrile, pulse 114, respiration 19, blood pressure 159/117, pulse 94% on 3 L. GENERAL APPEARANCE: Lying in bed, tired appearing. EYES: Pupils equal. Conjunctivae normal. HEENT: External appearance of nose and ears normal. Oral cavity normal. NECK: JVD unable to assess. Mass not palpable. Respiratory effort increased. LUNGS: Diminished breath sounds, prolonged expiration. CARDIOVASCULAR: 1st and 2nd sounds are normal. No edema. ABDOMEN: Distended, soft. Liver and spleen not palpable. PSYCHIATRY: Alert and oriented x3. Mood and affect tired-appearing. INVESTIGATIONS: White count 13.6, hemoglobin 12.9, potassium 4.6. Accu-Cheks 219, 165. Blood cultures growing coagulase-negative Staph. ASSESSMENT: 1. Acute severe bilateral pneumonia with severe sepsis present on admission with blood cultures positive, could be a contaminant. 2. Acute chronic obstructive pulmonary disease exacerbation in an ex-smoker, slow to respond. 3. Morbid obesity, BMI 58.8. 4. Obstructive sleep apnea. 5. Hyperglycemia probably secondary to infection and steroids. PLAN: At this point, continue with IV steroids, bronchodilators, IV ceftriaxone, vancomycin. Will DC the azithromycin. Pulmonary consultation appreciated. Care was discussed with the patient. MMODL / IJN: [id number] /
[2018-07-03 20:29] LABS: Glucose,Whole Blood 202 mg/dL (75-99)
[2018-07-03] MEDS: cefTRIAXone IN SWFI 1,000 MG/10 ML SYRINGE IVP SCH (21:15)
[2018-07-03] MEDS: AZITHROMYCIN 500 MG in DEXTROSE 5% IN WATER 250 ML IVPB SCH ×2 (21:16)
[2018-07-03] MEDS: INSULIN ASPART 100 UNIT/ML 1 ML 10 ML VIAL SQ SCH (22:49)
[2018-07-04] MEDS: LACTATED RINGERS 1,000 ML IV SCH ×2 (02:36→16:02)
[2018-07-04 06:42] LABS: Glucose,Whole Blood 120 mg/dL (75-99)
[2018-07-04] MEDS: IPRATROPIUM-ALBUTEROL 3 ML NEB INHALATION SCH ×4 (06:58→19:13)
[2018-07-04 07:01] LABS: Basophils % (A) 0 %; Eosinophils % (A) 0 %; HCT 48.1 % (39.0-53.0); HGB 14.1 gm/dL (13.0-17.5); Hypochromasia Moderate; Lymphocytes # (A) 0.7 k/uL (1.0-4.8); Lymphocytes % (A) 5 %; MCH 27.2 pg (25.0-35.0); MCHC 29.4 g/dL (31.0-37.0); MCV 92.5 fL (80.0-100.0); Mean Platelet Volume 6.9; Monocytes # (A) 0.4 k/uL (0-1.0); Monocytes % (A) 3 %; Neutrophils # (A) 13.2 k/uL (1.3-7.7); Neutrophils % (A) 92 %; Platelet Count 309 k/uL (150-450); RDW 13.9 % (11.5-15.5); WBC 14.4 k/uL (3.8-10.6)
[2018-07-04 07:11] LABS: Anion Gap 5 mmol/L; Blood Urea Nitrogen 18 mg/dL (9-20); Calcium 9.3 mg/dL (8.4-10.2); Carbon Dioxide 37 mmol/L (22-30); Chloride 99 mmol/L (98-107); Glucose 133 mg/dL (74-99); Sodium 141 mmol/L (137-145)
[2018-07-04 08:16] LABS: Vancomycin,Random <5.0 ug/mL
[2018-07-04] MEDS: INSULIN ASPART 100 UNIT/ML 1 ML 10 ML VIAL SQ SCH ×4 (08:50→20:41)
[2018-07-04] MEDS: methylPREDNISolone SOD SUCCI 40 MG/ML 1 ML VIAL IV SCH ×2 (08:57→17:00)
[2018-07-04] MEDS: VANCOMYCIN 2,000 MG in SODIUM CHLORIDE 0.9% 500 ML IVPB SCH ×3 (08:57→23:43)
[2018-07-04 11:25] LABS: Glucose,Whole Blood 260 mg/dL (75-99)
--- NOTE | 2018-07-04 13:03 | P.CNPUL ---
History of Present Illness Consult date: 07/02/18 Requesting physician: Regina Bill Reason for consult: dyspnea, abnormal CXR/CT Chief complaint: Shortness of breath History of present illness: This is a very pleasant 52-year-old gentleman who follows with Dr. Hope as his primary care physician. He has a history of morbid obesity, sleep apnea intolerant to CPAP, chronic obstructive pulmonary disease, previous smoking history, unable to afford inhalers. 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 He had been in his usual state of health until yesterday morning. He states he went to bed the prior evening feeling fine and he woke up yesterday quite short of breath with worsening productive cough. He also had some blood-tinged sputum. Chest x-ray shows a large consolidation in the left lung consistent with bronchopneumonia. He did have a T-max of 101.2. He was quite hypoxemic on arrival 73% on room air. Tachycardic. White count 14.1. ProBNP 366. Troponin negative. The patient was seen today in consultation on the selective care unit. He is awake and alert in no acute distress. He did utilize the BiPAP throughout the evening. He is currently maintaining O2 saturations in the 90s on 3 L/m per nasal cannula. He is currently afebrile. He's been initiated on vancomycin, ceftriaxone and azithromycin along with IV Solu-Medrol bronchodilators and diuretics. Review of Systems Constitutional: Reports fatigue, Reports fever, Reports poor appetite, Reports weight gain Eyes: denies blurred vision, denies decreased vision Ears: deny: decreased hearing Ears, nose, mouth and throat: Denies headache, Denies sore throat Cardiovascular: Reports dyspnea on exertion, Reports shortness of breath, Denies chest pain Respiratory: Reports cough with sputum, Reports dyspnea, Reports excessive sputum, Reports hemoptysis Gastrointestinal: Denies abdominal pain, Denies diarrhea, Denies nausea, Denies vomiting Genitourinary: Reports as per HPI Musculoskeletal: Denies myalgias Integumentary: Denies pruritus, Denies rash Neurological: Denies numbness, Denies weakness Psychiatric: Denies anxiety, Denies depression Endocrine: Denies fatigue, Denies weight change Hematologic/Lymphatic: Reports as per HPI Allergic/Immunologic: Reports as per HPI Past Medical History Past Medical History: Asthma, Heart Failure, COPD, Musculoskeletal Disorder, Sleep Apnea/CPAP/BIPAP Additional Past Medical History / Comment(s): Morbid obesity, History of Any Multi-Drug Resistant Organisms: None Reported Past Surgical History: Appendectomy, Orthopedic Surgery, Tonsillectomy Additional Past Surgical History / Comment(s): bilateral knee arthroscopy, surgery for sleep apnea, carpal tunnel , uvula and adnoids removed for sleep apnea, Past Anesthesia/Blood Transfusion Reactions: No Reported Reaction Past Psychological History: No Psychological Hx Reported Smoking Status: Former smoker Past Alcohol Use History: None Reported Past Drug Use History: None Reported - Past Family History Mother History Unknown: Yes Family Medical History: Deep Vein Thrombosis (DVT) Medications and Allergies Home Medications Medication Instructions Recorded Confirmed Type Furosemide [Lasix] 40 mg PO BID 07/01/18 07/01/18 History Spironolactone [Aldactone] 25 mg PO DAILY 07/01/18 07/01/18 History Allergies Allergy/AdvReac Type Severity Reaction Status Date / Time No Known Allergies Allergy Verified 07/01/18 21:41 Physical Exam Vitals: Vital Signs Temp Pulse Pulse Resp BP BP Pulse Ox 07/02/18 08:02 101 H 07/02/18 08:00 98.5 F 96 18 146/75 93 L 07/02/18 07:50 103 H 07/02/18 04:00 97.3 F L 113 H 20 150/102 93 L 07/02/18 03:54 107 H 28 H 07/02/18 03:35 112 H 07/02/18 03:24 108 H 07/02/18 00:00 97.2 F L 107 H 28 H 142/83 95 07/01/18 23:24 116 H 24 141/84 96 07/01/18 22:50 123 H 28 H 141/70 94 L 07/01/18 22:16 99.3 F 119 H 28 H 148/70 91 L 07/01/18 21:50 116 H 28 H 156/72 94 L 07/01/18 21:48 118 H 07/01/18 21:30 114 H 07/01/18 21:15 83 L 07/01/18 21:04 101.2 F H 121 H 36 H 161/89 73 L Intake and Output 08/07/02/18 07/02/18 22:59 06:59 14:59 Intake Total 600 240 Output Total 2100 300 Balance -1500 -60 Intake: Oral 600 240 Output: Urine 2100 300 Other: # Voids 3 Weight 158.757 kg 170.2 kg - Constitutional General appearance: morbidly obese - EENT Eyes: EOMI, PERRLA ENT: hearing grossly normal Ears: bilateral: normal - Neck Neck: normal ROM Carotids: bilateral: upstroke normal Thyroid: bilateral: normal size - Respiratory Respiratory: bilateral: rhonchi, wheezing - Cardiovascular Rhythm: regular Heart sounds: normal: S1, S2 - Gastrointestinal General gastrointestinal: normal bowel sounds - Integumentary Integumentary: normal turgor - Neurologic Neurologic: CNII-XII intact - Musculoskeletal Musculoskeletal: gait normal - Psychiatric Psychiatric: A&O x's 3, appropriate affect, intact judgment & insight Results - Laboratory Findings CBC and BMP: 07/02/18 06:05 07/02/18 06:05 PT/INR, D-dimer PT 9.4 sec (9.0-12.0) 07/01/18 21:19 INR 0.9 (<1.2) 07/01/18 21:19 Abnormal lab findings: Abnormal Labs 07/01/18 07/01/18 07/02/18 21:19 21:19 06:05 WBC 14.1 H 16.7 H Hct 53.4 H MCHC 30.2 L Neutrophils # 12.7 H 15.9 H Lymphocytes # 0.9 L 0.3 L Carbon Dioxide 31 H Creatinine 0.60 L Glucose 165 H 07/02/18 06:05 WBC Hct MCHC Neutrophils # Lymphocytes # Carbon Dioxide Creatinine Glucose 202 H - Diagnostic Findings Chest x-ray: image reviewed CT scan - chest: image reviewed Assessment and Plan Assessment: Impression: #1 Acute hypoxic respiratory failure secondary to an acute community-acquired multilobar more so on the left lung pneumonia. #2 Febrile illness secondary to above. #3 Morbid obesity. #4 Obstructive sleep apnea, with previous U PPP #5 Chronic obstructive pulmonary disease, not on inhalers in the outpatient setting. #6 History of chronic tobacco use. #7 Intermittent lower extremity edema. Plan: The patient was seen and evaluated by Dr. Ragland. Chest x-ray and labs were reviewed. We'll go ahead and obtain a computed tomography scan of the chest to rule out any worsening abnormalities. Suspect multilobar left lung pneumonia with some minimal right lung involvement. Continue with vancomycin, ceftriaxone and azithromycin. Continue IV Solu Medrol and bronchodilators. Obtain a urine legionella antigen. The patient would benefit from a repeat sleep study for suspected ongoing sleep apnea. He also benefit from a workup including full pulmonary function testing to evaluate the suspected COPD and make recommendations for her maintenance medications in the outpatient setting. In the interim, we'll increase his activity as tolerated. We'll continue to follow make further recommendations based on his clinical status. I, the cosigning physician, performed a history & physical examination of the patient. Lungs sounds with bilateral scattered rhonchi more so on the left. Maintaining good O2 saturations in the 90s on 3 L/m per nasal cannula. I discussed the assessment and plan of care with my nurse practitioner, Viviane Romero. I attest to the above note as dictated by her. Time with Patient: Greater than 30
--- NOTE | 2018-07-04 13:16 | P.PN ---
Subjective Progress Note Date: 07/04/18 Principal diagnosis: Acute community-acquired bilateral pneumonia left greater than right. This is a very pleasant 52-year-old gentleman who follows with Dr. Hope as his primary care physician. He has a history of morbid obesity, sleep apnea intolerant to CPAP, chronic obstructive pulmonary disease, previous smoking history, unable to afford inhalers. 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 He had been in his usual state of health until yesterday morning. He states he went to bed the prior evening feeling fine and he woke up yesterday quite short of breath with worsening productive cough. He also had some blood-tinged sputum. Chest x-ray shows a large consolidation in the left lung consistent with bronchopneumonia. He did have a T-max of 101.2. He was quite hypoxemic on arrival 73% on room air. Tachycardic. White count 14.1. ProBNP 366. Troponin negative. The patient was seen today in consultation on the selective care unit. He is awake and alert in no acute distress. He did utilize the BiPAP throughout the evening. He is currently maintaining O2 saturations in the 90s on 3 L/m per nasal cannula. He is currently afebrile. He's been initiated on vancomycin, ceftriaxone and azithromycin along with IV Solu-Medrol bronchodilators and diuretics. Patient is seen again today 07/04/2018 in all upon the surgical floor. He is awake and alert in no acute distress. He is maintaining good O2 saturations in the 90s on 2 L/m per nasal cannula. He is improved today as compared to yesterday but still not back to his baseline. He is continued on antibiotics, IV Solu-Medrol, bronchodilators. White count 14.4. Hemoglobin 14.1. Creatinine 0.71. Objective - Vital Signs Vital signs: Vital Signs Temp 98.3 F 07/04/18 08:00 Pulse 116 H 07/04/18 10:51 Resp 18 07/04/18 08:00 BP 133/93 07/04/18 08:00 Pulse Ox 90 L 07/04/18 08:00 Intake & Output 07/03/18 07/04/18 07/04/18 18:59 06:59 18:59 Intake Total 805 1440 420 Output Total 2400 Balance -1595 1440 420 Intake: Intake, IV Titration 225 Amount Lactated Ringers 1,000 ml 225 @ 75 mls/hr IV .[id number] [facility] Rx#:[id number] Oral 580 1440 420 Output: Urine 2400 Other: Voiding Method Toilet # Voids 2 - Exam - Constitutional General appearance: morbidly obese - EENT Eyes: EOMI, PERRLA ENT: hearing grossly normal Ears: bilateral: normal - Neck Neck: normal ROM Carotids: bilateral: upstroke normal Thyroid: bilateral: normal size - Respiratory Respiratory: bilateral: rhonchi, wheezing - Cardiovascular Rhythm: regular Heart sounds: normal: S1, S2 - Gastrointestinal General gastrointestinal: normal bowel sounds - Integumentary Integumentary: normal turgor - Neurologic Neurologic: CNII-XII intact - Musculoskeletal Musculoskeletal: gait normal - Psychiatric Psychiatric: A&O x's 3, appropriate affect, intact judgment & insight - Labs CBC & Chem 7: 07/04/18 06:25 07/04/18 06:25 Labs: Abnormal Lab Results - Last 24 Hours (Table) 07/03/18 07/03/18 07/04/18 Range/Units 16:42 20:28 06:25 WBC 14.4 H (3.8-10.6) k/uL MCHC 29.4 L (31.0-37.0) g/dL Neutrophils # 13.2 H (1.3-7.7) k/uL Lymphocytes # 0.7 L (1.0-4.8) k/uL Carbon Dioxide (22-30) mmol/L Glucose (74-99) mg/dL POC Glucose (mg/dL) 165 H 202 H (75-99) mg/dL 07/04/18 07/04/18 07/04/18 Range/Units 06:25 06:41 11:24 WBC (3.8-10.6) k/uL MCHC (31.0-37.0) g/dL Neutrophils # (1.3-7.7) k/uL Lymphocytes # (1.0-4.8) k/uL Carbon Dioxide 37 H (22-30) mmol/L Glucose 133 H (74-99) mg/dL POC Glucose (mg/dL) 120 H 260 H (75-99) mg/dL Microbiology - Last 24 Hours (Table) 07/01/18 21:19 Blood Culture Gram Stain - Final Blood Blood Culture - Final Staphylococcus epidermidis Assessment and Plan Assessment: Impression: #1 Acute hypoxic respiratory failure secondary to an acute community-acquired multilobar more so on the left lung pneumonia. #2 Febrile illness secondary to above. #3 Morbid obesity. #4 Obstructive sleep apnea, with previous U PPP #5 Chronic obstructive pulmonary disease, not on inhalers in the outpatient setting. #6 History of chronic tobacco use. #7 Intermittent lower extremity edema. Plan: The patient was seen and evaluated by Dr. Meeks. Continue with his current treatment plan. We'll increase his activity as tolerated. We'll continue to follow and make further recommendations based on his clinical status. I, the cosigning physician, performed a history & physical examination of the patient. Lungs sounds with bilateral scattered rhonchi more so on the left. Maintaining good O2 saturations in the 90s on 3 L/m per nasal cannula. I discussed the assessment and plan of care with my nurse practitioner, Viviane Romero. I attest to the above note as dictated by her.
[2018-07-04 17:02] LABS: Glucose,Whole Blood 161 mg/dL (75-99)
[2018-07-04 20:34] LABS: Glucose,Whole Blood 164 mg/dL (75-99)
[2018-07-04] MEDS: cefTRIAXone IN SWFI 1,000 MG/10 ML SYRINGE IVP SCH (20:41)
[2018-07-04] MEDS: AZITHROMYCIN 500 MG TAB PO SCH (20:42)
--- NOTE | 2018-07-05 00:23 | PN ---
PROGRESS NOTE DATE OF SERVICE: 07/04/2018. PRESENTING COMPLAINT: Cough, short of breath. INTERVAL HISTORY: The patient presented with bilateral severe pneumonia with sepsis, cough, bloody sputum, slowly improving. Appetite is fair. Bringing up sputum. Fevers have come down. Tired. REVIEW OF SYSTEMS: Done for constitutional, cardiovascular, GI, pulmonary; relevant findings as above. CURRENT MEDICATIONS: Reviewed that include IV ceftriaxone, p.o. Zithromax, IV Solu-Medrol, vancomycin. EXAMINATION: Afebrile, pulse 101, respiratory 18, blood pressure 135/81 pulse 93% on 2L. GENERAL APPEARANCE: Lying in bed, awake. EYES: Pupils are equal. Conjunctivae normal. HEENT: External nose is normal. Oral cavity normal. NECK: JVD not raised. Mass not palpable. Respiratory effort increased. LUNGS: Decreased breath sounds, decreased wheezing. CARDIOVASCULAR: First and second heart sounds, no edema. ABDOMEN: Soft. Liver and spleen not palpable. PSYCHIATRY: Alert and oriented x3. Mood and affect normal. INVESTIGATIONS: White count 14.4, potassium 5. The patient's blood cultures showing Staph epidermidis. ASSESSMENT: 1. Acute severe bilateral pneumonia with severe sepsis present on admission with blood cultures showing Staph epidermidis in 2 sets. 2. Acute COPD exacerbation in an ex-smoker, improving. 3. Morbid obesity, BMI 58.8. 4. Obstructive sleep apnea. 5. Hyperglycemia secondary to steroids. PLAN: Patient is slowly improving. Continue current medication and treatment plan. Follow with Pulmonary. Care was discussed with the patient. MMODL / IJN: [id number] /
[2018-07-05] MEDS: LACTATED RINGERS 1,000 ML IV SCH ×2 (05:24→17:50)
[2018-07-05 07:00] LABS: Glucose,Whole Blood 107 mg/dL (75-99)
[2018-07-05] MEDS: INSULIN ASPART 100 UNIT/ML 1 ML 10 ML VIAL SQ SCH ×4 (07:26→20:27)
[2018-07-05] MEDS: IPRATROPIUM-ALBUTEROL 3 ML NEB INHALATION SCH ×4 (07:36→20:30)
[2018-07-05 07:38] LABS: Anion Gap 6 mmol/L; Blood Urea Nitrogen 21 mg/dL (9-20); Calcium 8.7 mg/dL (8.4-10.2); Carbon Dioxide 34 mmol/L (22-30); Chloride 99 mmol/L (98-107); Glucose 96 mg/dL (74-99); Potassium 4.7 mmol/L (3.5-5.1); Sodium 139 mmol/L (137-145)
[2018-07-05] MEDS: methylPREDNISolone SOD SUCCI 40 MG/ML 1 ML VIAL IV SCH ×2 (07:56→20:27)
[2018-07-05] MEDS: VANCOMYCIN 2,000 MG in SODIUM CHLORIDE 0.9% 500 ML IVPB SCH ×3 (07:56→23:23)
--- NOTE | 2018-07-05 11:00 | P.PN ---
Subjective Progress Note Date: 07/05/18 Principal diagnosis: Acute community-acquired bilateral pneumonia left greater than right. This is a very pleasant 52-year-old gentleman who follows with Dr. Hope as his primary care physician. He has a history of morbid obesity, sleep apnea intolerant to CPAP, chronic obstructive pulmonary disease, previous smoking history, unable to afford inhalers. 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 He had been in his usual state of health until yesterday morning. He states he went to bed the prior evening feeling fine and he woke up yesterday quite short of breath with worsening productive cough. He also had some blood-tinged sputum. Chest x-ray shows a large consolidation in the left lung consistent with bronchopneumonia. He did have a T-max of 101.2. He was quite hypoxemic on arrival 73% on room air. Tachycardic. White count 14.1. ProBNP 366. Troponin negative. The patient was seen today in consultation on the selective care unit. He is awake and alert in no acute distress. He did utilize the BiPAP throughout the evening. He is currently maintaining O2 saturations in the 90s on 3 L/m per nasal cannula. He is currently afebrile. He's been initiated on vancomycin, ceftriaxone and azithromycin along with IV Solu-Medrol bronchodilators and diuretics. Patient is seen again today 07/04/2018 in all upon the surgical floor. He is awake and alert in no acute distress. He is maintaining good O2 saturations in the 90s on 2 L/m per nasal cannula. He is improved today as compared to yesterday but still not back to his baseline. He is continued on antibiotics, IV Solu-Medrol, bronchodilators. White count 14.4. Hemoglobin 14.1. Creatinine 0.71. The patient is seen again today 07/05/2018 in follow-up on the surgical floor. He is currently resting quite comfortably in bed. He is awake and alert in no acute distress. He states he is breathing about the same. Not quite back to his baseline. He is currently afebrile. Hemodynamically stable. Maintaining O2 saturations in the mid 90s on 2 L/m per nasal cannula. Chest x-ray is pending. Objective - Vital Signs Vital signs: Vital Signs Temp 98.0 F 07/05/18 07:27 Pulse 94 07/05/18 10:51 Resp 18 07/05/18 10:51 BP 144/95 07/05/18 07:27 Pulse Ox 96 07/05/18 07:36 Intake & Output 07/04/18 07/05/18 07/05/18 18:59 06:59 18:59 Intake Total 420 300 560 Output Total 500 Balance 420 -200 560 Intake: Intake, IV Titration 300 Amount Lactated Ringers 1,000 ml 300 @ 75 mls/hr IV .[id number] TAMELA Rx#:[id number] Oral 420 560 Output: Urine 500 Other: Voiding Method Urinal # Voids 1 - Exam - Constitutional General appearance: morbidly obese - EENT Eyes: EOMI, PERRLA ENT: hearing grossly normal Ears: bilateral: normal - Neck Neck: normal ROM Carotids: bilateral: upstroke normal Thyroid: bilateral: normal size - Respiratory Respiratory: bilateral: rhonchi, wheezing - Cardiovascular Rhythm: regular Heart sounds: normal: S1, S2 - Gastrointestinal General gastrointestinal: normal bowel sounds - Integumentary Integumentary: normal turgor - Neurologic Neurologic: CNII-XII intact - Musculoskeletal Musculoskeletal: gait normal - Psychiatric Psychiatric: A&O x's 3, appropriate affect, intact judgment & insight - Labs CBC & Chem 7: 07/04/18 06:25 07/05/18 06:42 Labs: Abnormal Lab Results - Last 24 Hours (Table) 07/04/18 07/04/18 07/04/18 Range/Units 11:24 17:00 20:32 Carbon Dioxide (22-30) mmol/L BUN (9-20) mg/dL POC Glucose (mg/dL) 260 H 161 H 164 H (75-99) mg/dL 07/05/18 07/05/18 Range/Units 06:42 06:59 Carbon Dioxide 34 H (22-30) mmol/L BUN 21 H (9-20) mg/dL POC Glucose (mg/dL) 107 H (75-99) mg/dL Microbiology - Last 24 Hours (Table) 07/01/18 21:19 Blood Culture Gram Stain - Final Blood Blood Culture - Final Staphylococcus epidermidis Assessment and Plan Assessment: Impression: #1 Acute hypoxic respiratory failure secondary to an acute community-acquired multilobar more so on the left lung pneumonia. #2 Febrile illness secondary to above. #3 Morbid obesity. #4 Obstructive sleep apnea, with previous U PPP #5 Chronic obstructive pulmonary disease, not on inhalers in the outpatient setting. #6 History of chronic tobacco use. #7 Intermittent lower extremity edema. Plan: The patient was seen and evaluated by Dr. Meeks. Today's chest x-ray is pending. Continue with his current treatment plan. We'll increase his activity as tolerated. We'll continue to follow and make further recommendations based on his clinical status. I, the cosigning physician, performed a history & physical examination of the patient. Lungs sounds with bilateral scattered rhonchi more so on the left. Maintaining good O2 saturations in the 90s on 3 L/m per nasal cannula. I discussed the assessment and plan of care with my nurse practitioner, Viviane Romero. I attest to the above note as dictated by her.
[2018-07-05 11:30] LABS: Glucose,Whole Blood 167 mg/dL (75-99)
--- NOTE | 2018-07-05 14:04 | XR ---
EXAMINATION TYPE: XR chest 1V portable DATE OF EXAM: 07/05/2018 COMPARISON: Prior chest x-ray 07/01/2018 HISTORY: Congestive heart failure, shortness of breath TECHNIQUE: Single frontal view of the chest is obtained. FINDINGS: There is improvement in aeration in the left upper lobe airspace disease. No evident pneum othorax or pleural effusion. Heart remains enlarged. Central vascularity is prominent. Patient is rot ated. IMPRESSION: Improvement in aeration. Additional follow-up recommended.
[2018-07-05 16:59] LABS: Glucose,Whole Blood 314 mg/dL (75-99)
[2018-07-05 20:11] LABS: Glucose,Whole Blood 155 mg/dL (75-99)
[2018-07-05] MEDS: cefTRIAXone IN SWFI 1,000 MG/10 ML SYRINGE IVP SCH (20:27)
[2018-07-05] MEDS: AZITHROMYCIN 500 MG TAB PO SCH (20:28)
--- NOTE | 2018-07-05 23:41 | PN ---
PROGRESS NOTE DATE OF SERVICE: 07/05/2018. PRESENTING COMPLAINT: Cough. INTERVAL HISTORY: Patient with bilateral severe pneumonia and sepsis, but the sputum production has gone down. Diet is fair. Fevers have come down. Overall breathing is getting better. REVIEW OF SYSTEMS: Done for constitutional, cardiovascular, GI, pulmonary; relevant findings as above. CURRENT MEDICATIONS: Reviewed, includin. Zithromax. 2. IV Solu-Medrol. 3. Vancomycin. 4. Ceftriaxone. EXAMINATION: Temperature 98, pulse 101, respirations 18, blood pressure 150/89, pulse ox 98% on 2L. GENERAL APPEARANCE: Sitting up, awake. EYES: Pupils equal. Conjunctivae normal. HEENT: External appearance of nose and ears normal. Oral cavity normal. NECK: JVD not raised. Mass not palpable. RESPIRATORY: Effort increased. LUNGS: Decreased breath sounds. Improved air entry. CARDIOVASCULAR: First and second sounds normal. No edema. ABDOMEN: Soft, nontender. Liver and spleen not palpable. PSYCHIATRY: Alert and oriented x3. Mood and affect normal. INVESTIGATIONS: Potassium 4.7. Accu-Cheks are noted. Sputum culture pending. ASSESSMENT: 1. Acute severe bilateral pneumonia with severe sepsis, present on admission with blood cultures showing Staphylococcus epidermidis in 2 sets. 2. Acute chronic obstructive pulmonary disease exacerbation in an ex-smoker, improving. 3. Morbid obesity, BMI of 38.8. 4. Sleep apnea. 5. Hyperglycemia secondary to steroids. PLAN: Continue current medication and treatment plan. Keep the patient on IV antibiotics for another 24 hours. The patient overall is much better. MMODL / IJN: [id number] /
[2018-07-06] MEDS ORDERED: VANCOMYCIN TROUGH DUE 1 EACH MISC MISCELLANE ONE (07:00)
[2018-07-06 07:08] LABS: Glucose,Whole Blood 114 mg/dL (75-99)
[2018-07-06] MEDS: INSULIN ASPART 100 UNIT/ML 1 ML 10 ML VIAL SQ SCH ×3 (07:09→18:23)
[2018-07-06] MEDS: LACTATED RINGERS 1,000 ML IV SCH (07:09)
[2018-07-06] MEDS: IPRATROPIUM-ALBUTEROL 3 ML NEB INHALATION SCH ×2 (07:47→11:27)
[2018-07-06 07:56] VITALS: BP 118/75; RESP 16; TEMP 97.8
[2018-07-06 08:02] LABS: Blood Urea Nitrogen 19 mg/dL (9-20); Calcium 8.2 mg/dL (8.4-10.2); Chloride 97 mmol/L (98-107); Glucose 114 mg/dL (74-99); Potassium 5.2 mmol/L (3.5-5.1); Sodium 141 mmol/L (137-145)
[2018-07-06 08:32] LABS: Anion Gap 5 mmol/L; Carbon Dioxide 39 mmol/L (22-30)
[2018-07-06] MEDS: VANCOMYCIN 2,000 MG in SODIUM CHLORIDE 0.9% 500 ML IVPB SCH (09:43)
[2018-07-06] MEDS: methylPREDNISolone SOD SUCCI 40 MG/ML 1 ML VIAL IV SCH (09:43)
[2018-07-06 11:40] VITALS: PULSE 100
[2018-07-06 11:46] LABS: Glucose,Whole Blood 112 mg/dL (75-99)
--- NOTE | 2018-07-06 13:57 | P.PN ---
Subjective Progress Note Date: 07/06/18 Principal diagnosis: Acute community-acquired bilateral pneumonia left greater than right. This is a very pleasant 52-year-old gentleman who follows with Dr. Hope as his primary care physician. He has a history of morbid obesity, sleep apnea intolerant to CPAP, chronic obstructive pulmonary disease, previous smoking history, unable to afford inhalers. 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 He had been in his usual state of health until yesterday morning. He states he went to bed the prior evening feeling fine and he woke up yesterday quite short of breath with worsening productive cough. He also had some blood-tinged sputum. Chest x-ray shows a large consolidation in the left lung consistent with bronchopneumonia. He did have a T-max of 101.2. He was quite hypoxemic on arrival 73% on room air. Tachycardic. White count 14.1. ProBNP 366. Troponin negative. The patient was seen today in consultation on the selective care unit. He is awake and alert in no acute distress. He did utilize the BiPAP throughout the evening. He is currently maintaining O2 saturations in the 90s on 3 L/m per nasal cannula. He is currently afebrile. He's been initiated on vancomycin, ceftriaxone and azithromycin along with IV Solu-Medrol bronchodilators and diuretics. Patient is seen again today 07/04/2018 in all upon the surgical floor. He is awake and alert in no acute distress. He is maintaining good O2 saturations in the 90s on 2 L/m per nasal cannula. He is improved today as compared to yesterday but still not back to his baseline. He is continued on antibiotics, IV Solu-Medrol, bronchodilators. White count 14.4. Hemoglobin 14.1. Creatinine 0.71. The patient is seen again today 07/05/2018 in follow-up on the surgical floor. He is currently resting quite comfortably in bed. He is awake and alert in no acute distress. He states he is breathing about the same. Not quite back to his baseline. He is currently afebrile. Hemodynamically stable. Maintaining O2 saturations in the mid 90s on 2 L/m per nasal cannula. Chest x-ray is pending. The patient was seen again today 07/06/2018 in follow-up on the surgical floor. He is currently sitting up at the bedside. He is awake and alert in no acute distress. Maintaining good O2 saturations in the 90s on room air. He's been afebrile. Hemodynamically stable. He is improved both clinically and radiographically. Objective - Vital Signs Vital signs: Vital Signs Temp 97.8 F 07/06/18 07:55 Pulse 100 07/06/18 11:39 Resp 16 07/06/18 07:55 BP 118/75 07/06/18 07:55 Pulse Ox 96 07/06/18 07:55 Intake & Output 07/05/18 07/06/18 07/06/18 18:59 06:59 18:59 Intake Total 560 800 Balance 560 800 Intake: Intake, IV Titration 800 Amount Lactated Ringers 1,000 ml 300 @ 75 mls/hr IV .[id number] TAMELA Rx#:[id number] Vancomycin 2,000 mg In 500 Sodium Chloride 0.9% 500 ml @ 167 mls/hr IVPB Q8HR TAMELA Rx#:[id number] Oral 560 Other: Voiding Method Toilet # Voids 1 - Exam - Constitutional General appearance: morbidly obese - EENT Eyes: EOMI, PERRLA ENT: hearing grossly normal Ears: bilateral: normal - Neck Neck: normal ROM Carotids: bilateral: upstroke normal Thyroid: bilateral: normal size - Respiratory Respiratory: bilateral: rhonchi - Cardiovascular Rhythm: regular Heart sounds: normal: S1, S2 - Gastrointestinal General gastrointestinal: normal bowel sounds - Integumentary Integumentary: normal turgor - Neurologic Neurologic: CNII-XII intact - Musculoskeletal Musculoskeletal: gait normal - Psychiatric Psychiatric: A&O x's 3, appropriate affect, intact judgment & insight - Labs CBC & Chem 7: 07/04/18 06:25 07/06/18 07:01 Labs: Abnormal Lab Results - Last 24 Hours (Table) 07/05/18 07/05/18 07/06/18 Range/Units 16:58 20:08 07:01 Potassium 5.2 H (3.5-5.1) mmol/L Chloride 97 L (98-107) mmol/L Carbon Dioxide 39 H (22-30) mmol/L Glucose 114 H (74-99) mg/dL POC Glucose (mg/dL) 314 H 155 H (75-99) mg/dL Calcium 8.2 L (8.4-10.2) mg/dL 07/06/18 07/06/18 Range/Units 07:05 11:44 Potassium (3.5-5.1) mmol/L Chloride (98-107) mmol/L Carbon Dioxide (22-30) mmol/L Glucose (74-99) mg/dL POC Glucose (mg/dL) 114 H 112 H (75-99) mg/dL Calcium (8.4-10.2) mg/dL Microbiology - Last 24 Hours (Table) 07/05/18 16:38 Gram Stain - Preliminary Sputum Sputum Culture - Preliminary 07/01/18 21:19 Blood Culture Gram Stain - Final Blood Blood Culture - Final Staphylococcus epidermidis Assessment and Plan Assessment: Impression: #1 Acute hypoxic respiratory failure secondary to an acute community-acquired multilobar more so on the left lung pneumonia. #2 Febrile illness secondary to above. Recovered. #3 Morbid obesity. #4 Obstructive sleep apnea, with previous U PPP #5 Chronic obstructive pulmonary disease, not on inhalers in the outpatient setting. #6 History of chronic tobacco use. #7 Intermittent lower extremity edema. Plan: The patient was seen and evaluated by Dr. Meeks. The patient is improved both radiographically and clinically. He is cleared for discharge from the pulmonary standpoint. Complete course of antibiotics in the form of Levaquin. Complete a prednisone taper. Follow-up in our office in 1 week's time. We'll repeat a chest x-ray then. He is however encouraged to call sooner with any recurrence of symptoms or other questions or concerns. I, the cosigning physician, performed a history & physical examination of the patient. Lungs sounds with bilateral scattered rhonchi more so on the left. Maintaining good O2 saturations in the 90s on room air. I discussed the assessment and plan of care with my nurse practitioner, Viviane Romero. I attest to the above note as dictated by her.
[2018-07-06] MEDS ORDERED: VANCOMYCIN 2,000 MG in SODIUM CHLORIDE 0.9% 500 ML IVPB SCH (18:00)
--- NOTE | 2018-07-07 07:40 | DS ---
DISCHARGE SUMMARY DATE OF ADMISSION: 07/01/2018 DATE OF DISCHARGE: 07/06/2018 FINAL DIAGNOSES: 1. Acute severe bilateral pneumonia causing severe sepsis with blood cultures showing Staphylococcus epidermidis. 2. Acute chronic obstructive pulmonary disease exacerbation in an ex-smoker. 3. Morbid obesity, body mass index 38.8. 4. Obstructive sleep apnea. 5. Hyperglycemia secondary to steroids. HOSPITAL COURSE: This patient who is an ex-smoker presented with bilateral severe pneumonia with sepsis. Doing much better by the time of discharge, up and about. Pulse ox 96% on room air. PHYSICAL EXAMINATION: On examination, temperature 97.8, pulse ox 96% on room air, blood pressure 118/75. Patient's blood cultures did grow Staph epidermidis that could be a contaminant. The patient clinically is greatly improved today. Discussed with Dr. Meeks and the patient. Patient can return to work after the holidays. DISCHARGE MEDICATIONS: 1. Aldactone 25 mg p.o. daily. 2. Ventolin HFA 1 to 2 puffs q.6 p.r.n. 3. Lasix 40 mg a day. 4. Atrovent HFA 2 puffs q.i.d. 5. Bactrim DS 1 tablet p.o. b.i.d., 14 tablets. 6. Prednisone taper. Follow up with Dr. Meeks on 07/14/2018. Follow up with Dr. Hope in 3 days. MMRAYL / TOMASN: [id number] /
== END 2018-07-06 18:35 | disposition home or self-care (01) | DRG 871 ==
LOC: EC 21:01 → 6SEL 22:30 → 3SUR 07-04 00:08
PROVIDERS: ADMIT Hospitalist; ATTEND Hospitalist
PROC: 5A09357 Assistance with Respiratory Ventilation, Less than 24 Consecutive Hours, Continuous Positive Airway Pressure (ICD-10-PCS; principal; 2018-07-01)
DX: A41.1 Sepsis due to other specified staphylococcus (principal); J13 Pneumonia due to Streptococcus pneumoniae; J96.01 Acute respiratory failure with hypoxia; R04.2 Hemoptysis; J44.0 Chronic obstructive pulmonary disease with (acute) lower respiratory infection; J44.1 Chronic obstructive pulmonary disease with (acute) exacerbation; Z68.43 Body mass index [BMI] 50.0-59.9, adult; R65.20 Severe sepsis without septic shock; Z87.891 Personal history of nicotine dependence; E66.01 Morbid (severe) obesity due to excess calories; G47.33 Obstructive sleep apnea (adult) (pediatric); I50.9 Heart failure, unspecified; T38.0X5A Adverse effect of glucocorticoids and synthetic analogues, initial encounter; R73.9 Hyperglycemia, unspecified; Z83.2 Family history of diseases of the blood and blood-forming organs and certain disorders involving the immune mechanism; M17.10 Unilateral primary osteoarthritis, unspecified knee; Z60.2 Problems related to living alone; Z79.899 Other long term (current) drug therapy
CPT/HCPCS: 36415; 71045; 71260; 80048; 80053; 80202; 81003; 82465; 82550; 82553; 83605; 83718; 83721; 83880; 84478; 84484; 85025; 85610; 85730; 87040; 87070; 87077; 87186; 87205; 87449; 93005; 94640; 94660; 94760; 96365; 96367; 96375; 99291

== ENCOUNTER 2018-12-23 03:24 | Emergency (ER) | payer BC, OTHER ==
[2018-12-23 03:45] VITALS: BP 132/81; PULSE 94; RESP 18; TEMP 99.2
--- NOTE | 2018-12-23 04:04 | XR ---
EXAM: XR Left Knee, 3 views CLINICAL HISTORY: ITS.REASON XR Reason: Pain TECHNIQUE: Three views of the left knee. COMPARISON: No relevant prior studies available. FINDINGS: Bones/joints: Tricompartmental osteoarthritis with mild joint space narrowing. No acute fracture. No dislocation. Soft tissues: Unremarkable. IMPRESSION: Tricompartmental osteoarthritis.
--- NOTE | 2018-12-23 04:39 | ED ---
Lower Extremity Injury HPI - General Chief Complaint: Extremity Injury, Lower Stated Complaint: [facility] knee pain Time Seen by Provider: 12/23/18 03:47 Source: patient Mode of arrival: wheelchair Limitations: no limitations - History of Present Illness Initial Comments: This patient is a 53-year-old man who presents with complaint of left knee pain. Patient states she was lifting something heavy at work and in the process felt a pop in his knee. Since that time he is having discomfort. He states it is aching, it is worse if he fully flexes or fully extend his knee. He is able to bear some weight. Complaint: knee injury -: hour(s) Injury: Knee: Left Type of Injury: unknown Place: work Severity: moderate Improves With: nothing Worsens With: weight bearing, movement Context: other (Lifting) Associated Symptoms: snap/pop sensation - Related Data Home Medications Medication Instructions Recorded Confirmed Spironolactone [Aldactone] 25 mg PO DAILY 07/01/18 07/01/18 Previous Rx's Medication Instructions Recorded Albuterol Inhaler [Ventolin Hfa 1 - 2 puff INHALATION Q6HR PRN #1 07/06/18 Inhaler] inhaler Furosemide [Lasix] 40 mg PO DAILY #0 07/06/18 Ipratropium [place] [Atrovent Hfa] 2 puff INHALATION QID #1 inhaler 07/06/18 Sulfamethoxazole/Trimethoprim 1 each PO BID #14 tablet 07/06/18 [Bactrim DS 800-160 mg] predniSONE 10 mg PO DAILY #30 tab 07/06/18 Ibuprofen 800 mg PO TID #20 tablet 12/23/18 traMADol HCl [Ultram] 50 mg PO Q6H PRN #15 tab 12/23/18 Allergies Allergy/AdvReac Type Severity Reaction Status Date / Time No Known Allergies Allergy Verified 12/23/18 03:44 Review of Systems ROS Statement: Those systems with pertinent positive or pertinent negative responses have been documented in the HPI. ROS Other: All systems not noted in ROS Statement are negative. Constitutional: Denies: fever, chills Cardiovascular: Denies: chest pain Gastrointestinal: Denies: abdominal pain Musculoskeletal: Reports: arthralgia. Denies: back pain, joint swelling Neurological: Denies: weakness, numbness, paresthesias Past Medical History Past Medical History: Asthma, Heart Failure, COPD, Musculoskeletal Disorder, Sleep Apnea/CPAP/BIPAP Additional Past Medical History / Comment(s): Morbid obesity, History of Any Multi-Drug Resistant Organisms: None Reported Past Surgical History: Appendectomy, Orthopedic Surgery, Tonsillectomy Additional Past Surgical History / Comment(s): bilateral knee arthroscopy, surgery for sleep apnea, carpal tunnel , uvula and adnoids removed for sleep apnea, Past Anesthesia/Blood Transfusion Reactions: No Reported Reaction Past Psychological History: No Psychological Hx Reported Smoking Status: Former smoker Past Alcohol Use History: None Reported Past Drug Use History: None Reported - Past Family History Mother History Unknown: Yes Family Medical History: Deep Vein Thrombosis (DVT) General Exam Limitations: no limitations General appearance: alert, in no apparent distress Left Upper Leg exam: Present: normal inspection. Absent: tenderness, swelling Knee exam: Present: tenderness, swelling, pain/laxity with varus. Absent: abrasion, laceration, ecchymosis, pain w/ pronation/supination, posterior draw sign, pain/laxity with valgus, full knee extension Lower Leg exam: Present: normal inspection, full ROM. Absent: tenderness, swelling Ankle exam: Present: normal inspection, full ROM. Absent: tenderness, swelling Foot/Toe exam: Present: normal inspection, full ROM. Absent: tenderness, swelling Neurovascular tendon exam: Present: no vascular compromise. Absent: motor deficit, sensory deficit, tendon deficit Gait: observed and normal Neurological exam: Present: alert. Absent: motor sensory deficit Skin exam: Present: warm, dry, intact, normal color. Absent: rash Course Vital Signs 12/23/18 03:41 Temperature 99.2 F Pulse Rate 94 Respiratory 18 Rate Blood Pressure 132/81 O2 Sat by Pulse 96 Oximetry Disposition Clinical Impression: Knee injury Disposition: HOME SELF-CARE Condition: Good Instructions (If sedation given, give patient instructions): Knee Sprain (ED) Prescriptions: Ibuprofen 800 mg PO TID #20 tablet traMADol HCl [Ultram] 50 mg PO Q6H PRN #15 tab PRN Reason: Pain Is patient prescribed a controlled substance at d/c from ED?: No Referrals: Alfredo Hope DO [Primary Care Provider] - 1-2 days
--- NOTE | 2018-12-26 00:10 | CDI ---
Documentation Clarification OP Dear Dino WILLIAM MD Please do addendum to ED report for missing HPI and Physical examination. Thank you, Katy Phillips Gun Repair Clerk If you have any questions, please contact Software Systems Architect at [phone] [facility]
== END 2018-12-23 04:45 | disposition home or self-care (01) ==
LOC: EC 03:24
DX: S89.92XA Unspecified injury of left lower leg, initial encounter (principal); I50.9 Heart failure, unspecified; E66.01 Morbid (severe) obesity due to excess calories; Z68.43 Body mass index [BMI] 50.0-59.9, adult; G47.30 Sleep apnea, unspecified; Z99.89 Dependence on other enabling machines and devices; Z87.891 Personal history of nicotine dependence; Z79.899 Other long term (current) drug therapy; X50.1XXA Overexertion from prolonged static or awkward postures, initial encounter; Y93.89 Activity, other specified; Y92.69 Other specified industrial and construction area as the place of occurrence of the external cause; Y99.0 Civilian activity done for income or pay
CPT/HCPCS: 99283

== ENCOUNTER 2019-06-10 14:23 | Emergency (ER) | payer BC, OTHER ==
[2019-06-10] MEDS ORDERED: IPRATROPIUM-ALBUTEROL 3 ML NEB INHALATION STA (14:28)
[2019-06-10] MEDS ORDERED: methylPREDNISolone SOD SUCCI 125 MG/2 ML VIAL IV STA (14:28)
[2019-06-10] MEDS ORDERED: FAMOTIDINE 20 MG/2 ML VIAL IV STA (14:29)
[2019-06-10] MEDS ORDERED: diphenhydrAMINE 50 MG/ML 1 ML VIAL IVP STA (14:29)
[2019-06-10 14:48] LABS: Basophils % (A) 1 %; Eosinophils # (A) 0.2 k/uL (0-0.7); Eosinophils % (A) 2 %; HCT 49.3 % (39.0-53.0); HGB 15.5 gm/dL (13.0-17.5); Hypochromasia Slight; Lymphocytes # (A) 2.2 k/uL (1.0-4.8); Lymphocytes % (A) 22 %; MCH 28.2 pg (25.0-35.0); MCHC 31.4 g/dL (31.0-37.0); MCV 89.8 fL (80.0-100.0); Mean Platelet Volume 7.4; Monocytes # (A) 0.5 k/uL (0-1.0); Monocytes % (A) 5 %; Neutrophils # (A) 6.7 k/uL (1.3-7.7); Neutrophils % (A) 69 %; Platelet Count 300 k/uL (150-450); RBC 5.49 m/uL (4.30-5.90); RDW 14.9 % (11.5-15.5); WBC 9.8 k/uL (3.8-10.6)
[2019-06-10 14:53] VITALS: TEMP 97.9
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
[2019-06-10 14:57] LABS: INR 0.9 (<1.2); Partial Thromboplastin Time 23.9 sec (22.0-30.0); Prothrombin Time 9.5 sec (9.0-12.0)
[2019-06-10 15:00] LABS: ALT 18 U/L (21-72); AST 22 U/L (17-59); African American GFR (CKD) >90 (>60 ml/min/1.73 sqM); Albumin 4.3 g/dL (3.5-5.0); Alkaline Phosphatase 94 U/L (38-126); Anion Gap 13 mmol/L; Blood Urea Nitrogen 9 mg/dL (9-20); Calcium 9.2 mg/dL (8.4-10.2); Carbon Dioxide 26 mmol/L (22-30); Chloride 102 mmol/L (98-107); Creatine Kinase 62 U/L (55-170); Glucose 179 mg/dL (74-99); Sodium 141 mmol/L (137-145); Total Bilirubin 0.7 mg/dL (0.2-1.3); Total Protein 6.9 g/dL (6.3-8.2)
--- NOTE | 2019-06-10 15:13 | XR ---
EXAMINATION TYPE: XR chest 2V DATE OF EXAM: 06/10/2019 COMPARISON: Chest x-ray July 05, 2018 HISTORY: Dyspnea. TECHNIQUE: Frontal and lateral views of the chest are obtained. FINDINGS: There is no focal air space opacity, pleural effusion, or pneumothorax seen. The cardiac silhouette size is mildly enlarged. The osseous structures are intact. IMPRESSION: Mild cardiomegaly without acute pulmonary process on current study.
[2019-06-10 16:05] VITALS: BP 133/81; PULSE 93; RESP 18
== END 2019-06-10 16:04 | disposition home or self-care (01) ==
LOC: EC 14:23
DX: J44.9 Chronic obstructive pulmonary disease, unspecified (principal); J98.01 Acute bronchospasm; G47.30 Sleep apnea, unspecified; Z99.89 Dependence on other enabling machines and devices; E66.01 Morbid (severe) obesity due to excess calories; Z68.43 Body mass index [BMI] 50.0-59.9, adult; Z87.891 Personal history of nicotine dependence; Z79.899 Other long term (current) drug therapy
CPT/HCPCS: 36415; 94640; 83880; 80053; 82550; 83735; 84484; 85025; 85610; 85730; 71046; 99285; 96374; 96375 ×2; J1200; J2930

== ENCOUNTER 2020-04-02 15:18 | Inpatient (IN) | payer BC ==
[2020-04-02] MEDS ORDERED: methylPREDNISolone SOD SUCCI 125 MG/2 ML VIAL IV STA (15:52)
[2020-04-02] MEDS ORDERED: IPRATROPIUM-ALBUTEROL 3 ML NEB INHALATION STA (15:52)
--- NOTE | 2020-04-02 16:01 | ED ---
General Adult HPI - General Chief complaint: Shortness of Breath Stated complaint: SURYA/Sent by pcp Time Seen by Provider: 04/02/20 15:39 Source: patient, RN notes reviewed Mode of arrival: ambulatory Limitations: no limitations - History of Present Illness Initial comments: Patient is a pleasant 54-year-old male presenting to the emergency Department wi complaints of difficulty in breathing. Onset of symptoms was yesterday when they made him wear a mask at work. Patient was doing fine prior to that. Patient states he has mild dry cough and dyspnea is similar to his previous asthma/COPD. Patient feels like the mask makes his symptoms worse however now he still has symptoms even with a mask is not on. Patient did go see his doctor and was advised come to the emergency department. Patient denies ever having chest discomfort. No fevers. No leg pain or leg swelling. - Related Data Home Medications Medication Instructions Recorded Confirmed Albuterol Nebulized [Ventolin 2.5 mg PO RT-BID 06/10/19 06/10/19 Nebulized] Previous Rx's Medication Instructions Recorded Furosemide [Lasix] 40 mg PO DAILY #0 07/06/18 methylPREDNISolone Dose Pack 4 mg PO DIRECTED #21 package 06/10/19 [Medrol Dose Pack] Allergies Allergy/AdvReac Type Severity Reaction Status Date / Time No Known Allergies Allergy Verified 04/02/20 15:30 Review of Systems ROS Statement: Those systems with pertinent positive or pertinent negative responses have been documented in the HPI. ROS Other: All systems not noted in ROS Statement are negative. Constitutional: Denies: fever Eyes: Denies: eye pain ENT: Denies: ear pain Respiratory: Reports: cough, dyspnea Cardiovascular: Denies: chest pain Endocrine: Denies: fatigue Gastrointestinal: Denies: abdominal pain Genitourinary: Denies: dysuria Musculoskeletal: Denies: back pain Skin: Denies: rash Neurological: Denies: headache Past Medical History Past Medical History: Asthma, Heart Failure, COPD, Musculoskeletal Disorder, Sleep Apnea/CPAP/BIPAP Additional Past Medical History / Comment(s): Morbid obesity, History of Any Multi-Drug Resistant Organisms: None Reported Past Surgical History: Appendectomy, Orthopedic Surgery, Tonsillectomy Additional Past Surgical History / Comment(s): bilateral knee arthroscopy, surgery for sleep apnea, carpal tunnel , uvula and adnoids removed for sleep apnea, Past Anesthesia/Blood Transfusion Reactions: No Reported Reaction Past Psychological History: No Psychological Hx Reported Smoking Status: Former smoker Past Alcohol Use History: None Reported Past Drug Use History: None Reported - Past Family History Mother History Unknown: Yes Family Medical History: Deep Vein Thrombosis (DVT) General Exam Limitations: no limitations General appearance: alert, in no apparent distress Head exam: Present: normocephalic Eye exam: Present: normal appearance Neck exam: Present: normal inspection Respiratory exam: Present: rhonchi Cardiovascular Exam: Present: regular rate, normal rhythm GI/Abdominal exam: Present: soft. Absent: distended, tenderness Extremities exam: Present: normal inspection. Absent: pedal edema, calf ten derness Back exam: Present: normal inspection Neurological exam: Present: alert Psychiatric exam: Present: normal affect, normal mood Skin exam: Present: normal color Course Vital Signs 04/02/20 04/02/20 04/02/20 15:27 16:19 16:28 Temperature 98.3 F Pulse Rate 103 H 93 96 Respiratory 28 H Rate Blood Pressure 140/78 O2 Sat by Pulse 95 Oximetry 04/02/20 04/02/20 16:30 17:57 Temperature 98.2 F Pulse Rate 93 Respiratory 22 22 Rate Blood Pressure 137/75 O2 Sat by Pulse 97 Oximetry EKG Findings - EKG Comments: EKG Findings:: Sinus tachycardia 101. ID 12. QRS 126. QT 360. QTC 466. Normal axis. Nonspecific intraventricular block. No acute ST change. Medical Decision Making - Medical Decision Making Patient reevaluated and updated. Patient specifically updated on breast nodule. Patient advised need for further evaluation with this. Case also discussed with Dr. Bill, who will admit covering for Dr. Quiroz, who admits covering for Dr. Hope. - Lab Data Result diagrams: 04/02/20 16:23 04/02/20 16:23 Lab Results 04/02/20 04/02/20 04/02/20 Range/Units 16:23 16:23 16:23 WBC 7.8 (3.8-10.6) k/uL RBC 4.94 (4.30-5.90) m/uL Hgb 13.7 (13.0-17.5) gm/dL Hct 42.4 (39.0-53.0) % MCV 85.8 (80.0-100.0) fL MCH 27.6 (25.0-35.0) pg MCHC 32.2 (31.0-37.0) g/dL RDW 14.0 (11.5-15.5) % Plt Count 257 (150-450) k/uL Neutrophils % 80 % Lymphocytes % 12 % Monocytes % 6 % Eosinophils % 1 % Basophils % 0 % Neutrophils # 6.3 (1.3-7.7) k/uL Lymphocytes # 0.9 L (1.0-4.8) k/uL Monocytes # 0.4 (0-1.0) k/uL Eosinophils # 0.1 (0-0.7) k/uL Basophils # 0.0 (0-0.2) k/uL PT 9.7 (9.0-12.0) sec INR 0.9 (<1.2) APTT 23.7 (22.0-30.0) sec D-Dimer 0.79 H (<0.60) mg/L FEU Sodium 136 L (137-145) mmol/L Potassium 3.8 (3.5-5.1) mmol/L Chloride 99 (98-107) mmol/L Carbon Dioxide 29 (22-30) mmol/L Anion Gap 8 mmol/L BUN 15 (9-20) mg/dL Creatinine 0.63 L (0.66-1.25) mg/dL Est GFR (CKD-EPI)AfAm >90 (>60 ml/min/1.73 sqM) Est GFR (CKD-EPI)NonAf >90 (>60 ml/min/1.73 sqM) Glucose 113 H (74-99) mg/dL Plasma Lactic Acid Dionicio (0.7-2.0) mmol/L Calcium 8.9 (8.4-10.2) mg/dL Total Bilirubin 0.7 (0.2-1.3) mg/dL AST 23 (17-59) U/L ALT 13 (4-49) U/L Alkaline Phosphatase 85 (38-126) U/L Troponin I (0.000-0.034) ng/mL Total Protein 6.7 (6.3-8.2) g/dL Albumin 4.0 (3.5-5.0) g/dL 04/02/20 04/02/20 Range/Units 16:23 16:23 WBC (3.8-10.6) k/uL RBC (4.30-5.90) m/uL Hgb (13.0-17.5) gm/dL Hct (39.0-53.0) % MCV (80.0-100.0) fL MCH (25.0-35.0) pg MCHC (31.0-37.0) g/dL RDW (11.5-15.5) % Plt Count (150-450) k/uL Neutrophils % % Lymphocytes % % Monocytes % % Eosinophils % % Basophils % % Neutrophils # (1.3-7.7) k/uL Lymphocytes # (1.0-4.8) k/uL Monocytes # (0-1.0) k/uL Eosinophils # (0-0.7) k/uL Basophils # (0-0.2) k/uL PT (9.0-12.0) sec INR (<1.2) APTT (22.0-30.0) sec D-Dimer (<0.60) mg/L FEU Sodium (137-145) mmol/L Potassium (3.5-5.1) mmol/L Chloride (98-107) mmol/L Carbon Dioxide (22-30) mmol/L Anion Gap mmol/L BUN (9-20) mg/dL Creatinine (0.66-1.25) mg/dL Est GFR (CKD-EPI)AfAm (>60 ml/min/1.73 sqM) Est GFR (CKD-EPI)NonAf (>60 ml/min/1.73 sqM) Glucose (74-99) mg/dL Plasma Lactic Acid Dionicio 2.0 (0.7-2.0) mmol/L Calcium (8.4-10.2) mg/dL Total Bilirubin (0.2-1.3) mg/dL AST (17-59) U/L ALT (4-49) U/L Alkaline Phosphatase (38-126) U/L Troponin I <0.012 (0.000-0.034) ng/mL Total Protein (6.3-8.2) g/dL Albumin (3.5-5.0) g/dL - Radiology Data Radiology results: report reviewed (CT angios of the chest shows no definite embolus. Mild motion artifact. Bronchial wall thickening. Breast nodule.), image reviewed (Chest x-ray shows no acute process) Disposition Clinical Impression: COPD (chronic obstructive pulmonary disease) Disposition: ADMITTED IP TO THIS HOSP Is patient prescribed a controlled substance at d/c from ED?: No Referrals: Alfredo Hope DO [Primary Care Provider] - 1-2 days Decision Time: 18:17
[2020-04-02 16:34] LABS: Basophils % (A) 0 %; Eosinophils # (A) 0.1 k/uL (0-0.7); Eosinophils % (A) 1 %; HCT 42.4 % (39.0-53.0); HGB 13.7 gm/dL (13.0-17.5); Lymphocytes # (A) 0.9 k/uL (1.0-4.8); Lymphocytes % (A) 12 %; MCH 27.6 pg (25.0-35.0); MCHC 32.2 g/dL (31.0-37.0); MCV 85.8 fL (80.0-100.0); Mean Platelet Volume 7.2; Monocytes # (A) 0.4 k/uL (0-1.0); Monocytes % (A) 6 %; Neutrophils # (A) 6.3 k/uL (1.3-7.7); Neutrophils % (A) 80 %; Platelet Count 257 k/uL (150-450); RBC 4.94 m/uL (4.30-5.90); WBC 7.8 k/uL (3.8-10.6)
[2020-04-02 16:43] LABS: ALT 13 U/L (4-49); AST 23 U/L (17-59); African American GFR (CKD) >90 (>60 ml/min/1.73 sqM); Alkaline Phosphatase 85 U/L (38-126); Anion Gap 8 mmol/L; Blood Urea Nitrogen 15 mg/dL (9-20); Calcium 8.9 mg/dL (8.4-10.2); Carbon Dioxide 29 mmol/L (22-30); Chloride 99 mmol/L (98-107); Glucose 113 mg/dL (74-99); Non-African American GFR(CKD) >90 (>60 ml/min/1.73 sqM); Potassium 3.8 mmol/L (3.5-5.1); Sodium 136 mmol/L (137-145); Total Bilirubin 0.7 mg/dL (0.2-1.3); Total Protein 6.7 g/dL (6.3-8.2)
--- NOTE | 2020-04-02 16:45 | XR ---
EXAMINATION TYPE: XR chest 2V DATE OF EXAM: 04/02/2020 COMPARISON: 06/10/2019 HISTORY: Difficulty breathing TECHNIQUE: Frontal and lateral views of the chest are obtained. FINDINGS: There is no focal air space opacity, pleural effusion, or pneumothorax seen. The cardiac silhouette size is upper limits normal size. The osseous structures are intact. Mild multilevel deg enerative change of the spine. IMPRESSION: No acute cardiopulmonary process.
[2020-04-02 16:49] LABS: INR 0.9 (<1.2); Partial Thromboplastin Time 23.7 sec (22.0-30.0); Prothrombin Time 9.7 sec (9.0-12.0)
[2020-04-02 17:12] LABS: D-Dimer 0.79 mg/L FEU (<0.60)
--- NOTE | 2020-04-02 18:02 | CT ---
EXAMINATION TYPE: CT angio chest DATE OF EXAM: 04/02/2020 COMPARISON: 07/02/2018 HISTORY: 54-year-old male SOB, elevated d-dimer TECHNIQUE: Contiguous axial scanning of the chest performed with IV Contrast, patient injected with 8 6cc mL of Isovue 370. Coronal/sagittal MIP reconstructions performed. CT DLP: 1147.3 mGycm Automated exposure control for dose reduction was used. FINDINGS: Heart borderline enlarged. No pericardial effusion. Aorta normal caliber with a conventional arteriogram is a branching anatomy. A couple prominent right tracheobronchial angle and lower right paratracheal lymph nodes measuring up to 1.0 cm, likely reactive or postinflammatory. There is borderline satisfactory opacification of the pulmonary arteries but with mild respiratory mo tion artifacts. No large central or lobar branch pulmonary embolus. No definite segmental branch embo stone though assessment is limited activity on this level. Mild diffuse bronchial wall thickening. Stable 3 mm subpleural pulmonary nodule peripheral right upper lobe, 6 mm right lower lobe pulmonary nodule, axial image 92, and 7 mm subpleural pulmonary nodule right lower lobe, axial image 111. Patchy density peripheral right base and additional scattered streaky areas of atelectasis in both lo wer lungs. An area of 1.4 cm nodularity partially visualized in the posterior lateral left breast near the axill a. Stable 2.3 cm right adrenal mass suggestive of a benign adrenal adenoma. Bones: DISH within the mid to lower thoracic spine with accentuated kyphosis. IMPRESSION: 1. MILD MOTION ARTIFACTS. NO DEFINITE EMBOLUS THOUGH ASSESSMENT IS LIMITED AT THE SEGMENTAL AND MORE DISTAL ARTERIAL LEVEL. 2. A FEW BONY NODULES ON THE RIGHT MEASURING UP TO 7 MM ARE UNCHANGED FROM APRIL 01, 2018 SUGGESTING A BENIGN ETIOLOGY. 3. MILD DIFFUSE BRONCHIAL WALL THICKENING SUGGESTS BRONCHITIS OR ASTHMA. RELATIVELY CORRELATE. 4. PATCHY OPACITY AT THE PERIPHERAL RIGHT BASE, LIKELY ATELECTASIS. 5. DIAGNOSTIC MAMMOGRAM IS RECOMMENDED TO ASSESS THE PARTIALLY VISUALIZED 1.4 CM LATERAL LEFT BREAST NODULARITY. 6. STABLE 2.3 CM BENIGN ADRENAL ADENOMA.
[2020-04-02] MEDS ORDERED: IPRATROPIUM-ALBUTEROL 3 ML NEB INHALATION PRN (18:21)
[2020-04-02] MEDS: SODIUM CHLORIDE 0.9% 1,000 ML IV SCH (19:43)
[2020-04-02] MEDS: IPRATROPIUM-ALBUTEROL 3 ML NEB INHALATION SCH (20:38)
[2020-04-02] MEDS ORDERED: HYDROcodone/APAP 5-325MG 1 EACH TAB PO PRN (20:52)
[2020-04-02] MEDS ORDERED: ALPRAZolam 0.25 MG TAB PO PRN (20:52)
[2020-04-02] MEDS: MONTELUKAST 10 MG TAB PO SCH (22:33)
[2020-04-02] MEDS: HEPARIN SODIUM,PORCINE 5,000 UNIT/ML 1 ML VIAL SQ SCH (22:34)
[2020-04-02] MEDS: FUROSEMIDE 10 MG/ML 4 ML VIAL IV SCH (22:34)
[2020-04-02 22:52] LABS: Glucose,Whole Blood 210 mg/dL (75-99)
[2020-04-02] MEDS: methylPREDNISolone SOD SUCCI 125 MG/2 ML VIAL IV SCH (23:22)
[2020-04-02] MEDS: INSULIN ASPART (NovoLOG) 100 UNIT/ML VIAL SQ SCH (23:22)
--- NOTE | 2020-04-03 01:04 | HP ---
HISTORY AND PHYSICAL DATE OF SERVICE: 04/02/2020 CHIEF COMPLAINT: Shortness of breath. HISTORY OF PRESENT ILLNESS: This 54-year-old gentleman with a past medical history of multiple medical problems including asthma, COPD, history of CHF, history of sleep apnea, history of DJD, history of appendectomy being followed by Dr. Hope in the outpatient setting was complaining of shortness of breath for the last couple days. 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 Patient came to [facility] and admitted for further evaluation and treatment. There is no history of any sick contacts, but evaluation showed increased bronchovascular markings on the right side and the CT scan showed some increased shadows on the right side, possibly indicating bronchopneumonia. The patient admitted for further evaluation and treatment. Otherwise, lab stevens, CBC is within normal limits and D-dimer slightly elevated at 0.79 and creatinine 0.63. There is no history of fever or rigors. No history of headache, loss of consciousness, seizures, chest pain, palpitations, hematochezia or melena at this time. PAST MEDICAL HISTORY: History of asthma, COPD, CHF, history of DJD, sleep apnea, history of appendectomy, DJD. MEDICATIONS: Home medications are: 1. Medrol Dosepak. 2. Lasix 40 mg p.o. daily. 3. Ventolin 2.5 b.i.d. ALLERGIES: None. FAMILY HISTORY: History of DVT. SOCIAL HISTORY: Previous history of smoking. No history of current smoking or alcohol intake. REVIEW OF SYSTEMS: ENT: No diminished hearing or diminished vision. CARDIOVASCULAR SYSTEM: As mentioned earlier. RESPIRATORY SYSTEM: As mentioned earlier. GI: No nausea. : No dysuria. NERVOUS SYSTEM: No numbness or weakness. ALLERGY/IMMUNOLOGY: Asthma. MUSCULOSKELETAL: As mentioned earlier. HEMATOLOGY/ONCOLOGY: No history of anemia. ENDOCRINE: No history of diabetes mellitus. CONSTITUTIONAL: As mentioned earlier. DERMATOLOGY: Negative. RHEUMATOLOGY: Negative. PSYCHIATRY: As mentioned earlier. PHYSICAL EXAMINATION: The patient is alert and oriented x3. Pulse 93, blood pressure 137/75, respiration 22, temperature 98.2, pulse ox 97% on 2 L HEENT: Conjunctivae normal. NECK: No jugular venous distention. CARDIOVASCULAR: S1, S2 muffled. RESPIRATORY: Breath sounds diminished at the bases. Scattered rhonchi and crackles. Expiratory wheezing also present. Breathing efforts are markedly increased. Coarse crackles also present on the right side. ABDOMEN: Soft, obese, nontender. No mass palpable. LEGS: No edema, no swelling. NERVOUS SYSTEM: Higher functions as mentioned earlier. Moves all 4 limbs. No focal motor or sensory deficits. LYMPHATICS: No lymphadenopathy of the neck, axillae or groin. SKIN: No ulcer, rash or bleeding. JOINTS: No active deforming arthropathy. LABS: CBC within normal limits. Otherwise sodium 136, potassium 3.8 and glucose 113. ASSESSMENT: 1. Possible chronic obstructive pulmonary disease acute exacerbation with possible acute purulent tracheobronchitis. 2. Possible acute bronchopneumonia right side. 3. History of congestive heart failure. 4. Sleep apnea. 5. Morbid obesity. 6. History of appendectomy. 7. History of degenerative joint disease. 8. History of bilateral knee arthroscopy. 9. Remote history of nicotine dependence. 10.Morbid obesity with body mass index of 56.1. 11.Hyponatremia. 12.FULL CODE. RECOMMENDATIONS AND DISCUSSION: This 54-year-old gentleman who presented with multiple complex medical issues, we will monitor the patient closely. Continue the current medications. Continues treatment. Otherwise at this time will initiate bronchodilators, empiric antibiotics. Consult Dr. Smith for further evaluation. Otherwise IV steroids, monitor blood sugars closely. Resume the home medications. The overall prognosis guarded because of the multiple complex medical issues which I discussed at length with the patient at the bedside. A copy of dictation forwarded to Dr. Hope who is the primary physician. MMODL / IJN: [id number] /
[2020-04-03] MEDS: methylPREDNISolone SOD SUCCI 125 MG/2 ML VIAL IV SCH ×3 (05:23→17:16)
[2020-04-03] MEDS: SODIUM CHLORIDE 0.9% 1,000 ML IV SCH (05:24)
[2020-04-03 07:26] LABS: Glucose,Whole Blood 142 mg/dL (75-99)
[2020-04-03] MEDS: INSULIN ASPART (NovoLOG) 100 UNIT/ML VIAL SQ SCH ×4 (08:04→20:56)
[2020-04-03] MEDS: HEPARIN SODIUM,PORCINE 5,000 UNIT/ML 1 ML VIAL SQ SCH ×2 (08:04→20:56)
[2020-04-03] MEDS: FUROSEMIDE 10 MG/ML 4 ML VIAL IV SCH ×2 (08:04→20:55)
[2020-04-03] MEDS: IPRATROPIUM-ALBUTEROL 3 ML NEB INHALATION SCH ×4 (08:33→20:04)
[2020-04-03] MEDS: SYMBICORT 160-4.5 MCG INHALER INHALATION SCH ×3 (08:33→20:03)
[2020-04-03] MEDS ORDERED: AZITHROMYCIN 500 MG in SODIUM CHLORIDE 0.9% 250 ML IVPB SCH (09:00)
[2020-04-03 11:06] LABS: Basophils % (A) 0 %; Eosinophils % (A) 0 %; HCT 48.6 % (39.0-53.0); HGB 15.6 gm/dL (13.0-17.5); Hypochromasia Slight; Lymphocytes # (A) 0.5 k/uL (1.0-4.8); Lymphocytes % (A) 6 %; MCH 28.8 pg (25.0-35.0); MCV 89.9 fL (80.0-100.0); Mean Platelet Volume 7.6; Monocytes # (A) 0.1 k/uL (0-1.0); Monocytes % (A) 1 %; Neutrophils # (A) 7.4 k/uL (1.3-7.7); Neutrophils % (A) 92 %; Platelet Count 258 k/uL (150-450); RBC 5.41 m/uL (4.30-5.90); RDW 13.8 % (11.5-15.5)
[2020-04-03 11:23] LABS: Glucose,Whole Blood 221 mg/dL (75-99)
[2020-04-03 11:29] LABS: African American GFR (CKD) >90 (>60 ml/min/1.73 sqM); Anion Gap 6 mmol/L; Blood Urea Nitrogen 10 mg/dL (9-20); Calcium 8.8 mg/dL (8.4-10.2); Carbon Dioxide 27 mmol/L (22-30); Chloride 98 mmol/L (98-107); Glucose 112 mg/dL (74-99); Non-African American GFR(CKD) >90 (>60 ml/min/1.73 sqM); Sodium 131 mmol/L (137-145)
[2020-04-03 17:09] LABS: Glucose,Whole Blood 158 mg/dL (75-99)
[2020-04-03 17:39] LABS: Appearance,Urine Clear (Clear); Bilirubin,Urine Negative (Negative); Blood,Urine Small (Negative); Color,Urine Yellow; Glucose,Urine (UA) Negative (Negative); Ketones,Urine Negative (Negative); Leukocyte Esterase,Urine Negative (Negative); Nitrite,Urine Negative (Negative); Protein,Urine Negative (Negative); RBC,Urine 1 /hpf (0-5); Specific Gravity,Urine 1.023 (1.001-1.035); WBC,Urine 1 /hpf (0-5)
[2020-04-03 18:21] LABS: Amphetamine Screen,Urine Not Detected (NotDetected); Barbiturate Screen,Urine Not Detected (NotDetected); Benzodiazepines Screen,Urine Not Detected (NotDetected); Cocaine Screen,Urine Not Detected (NotDetected); Methadone Screen, Urine Not Detected (NotDetected); Opiate Screen,Urine Detected (NotDetected); Oxycodone Screen, Urine Not Detected (NotDetected); Phencyclidine Screen,Urine Not Detected (NotDetected); Tricyclic Antidepressant,Urine Not Detected (NotDetected); Urn Cannabinoid Scrn Not Detected (NotDetected)
[2020-04-03 20:41] LABS: Glucose,Whole Blood 136 mg/dL (75-99)
--- NOTE | 2020-04-03 20:45 | ECHOF ---
Referral Reason:chf MEASUREMENTS -------- HEIGHT: 175.3 cm WEIGHT: 172.4 kg BP: 120/689 IVSd: 1.8 cm (0.6 - 1.1) LVIDd: 5.4 cm (3.9 - 5.3) LVPWd: 1.8 cm (0.6 - 1.1) IVSs: 2.7 cm LVIDs: 3.6 cm LVPWs: 2.3 cm LA Diam: 4.2 cm (2.7 - 3.8) RVIDd: 3.6 cm (< 3.3) Ao Diam: 3.7 cm (2.0 - 3.7) AV Cusp: 2.7 cm (1.5 - 2.6) EPSS: 1.1 cm MV E Jimmie: 0.89 m/s MV DecT: 216 ms MV A Jimmie: 0.48 m/s MV E/A Ratio: 1.85 RAP: 5.00 mmHg RVSP: 29.49 mmHg MV EF SLOPE: 257.57 mm/s (70 - 150) MV EXCURSION: 19.52 mm (> 18.000) FINDINGS -------- Resting tachycardia (HR>100bpm). This was a technically difficult study with suboptimal views. The left ventricular size is normal. There is severe concentric left ventricular hypertrophy. Ove rall left ventricular systolic function is normal with, an EF between 60 - 65 %. The right ventricle is mildly enlarged. The left atrium is mildly dilated. 5.0mg of Lumason was utilized for enhancement of images Interatrial and interventricular septum intact. The aortic valve is trileaflet and appears structurally normal. The mitral valve was not well visualized. Mild tricuspid regurgitation present. The pulmonic valve was not well visualized. The aortic root size is normal. IVC Not well visulized. There is no pericardial effusion. CONCLUSIONS -------- 1. Resting tachycardia (HR>100bpm). 2. This was a technically difficult study with suboptimal views. 3. The left ventricular size is normal. 4. There is severe concentric left ventricular hypertrophy. 5. Overall left ventricular systolic function is normal with, an EF between 60 - 65 %. 6. The right ventricle is mildly enlarged. 7. The left atrium is mildly dilated. 8. 5.0mg of Lumason was utilized for enhancement of images 9. Interatrial and interventricular septum intact. 10. The aortic valve is trileaflet and appears structurally normal. 11. The mitral valve was not well visualized. 12. Mild tricuspid regurgitation present. 13. The pulmonic valve was not well visualized. 14. The aortic root size is normal. 15. IVC Not well visulized. 16. There is no pericardial effusion. MANAGING SUPERVISOR: Omayra Castro RDCS
--- NOTE | 2020-04-03 20:49 | PN ---
PROGRESS NOTE DATE OF SERVICE: 04/03/2020 This 54-year-old gentleman who was admitted with COPD, acute exacerbation, is being closely monitored at this time. The patient also is suspected to have pneumonia. The patient was apparently using a mask at work, which resulted in significant increased shortness of breath. The patient is being closely monitored at this time. Past medical history reviewed. The patient was also started on IV Lasix. The most recent chest CTA, which was personally reviewed by me, showed multiple abnormalities. A diagnostic mammogram was recommended, with a 1.4 cm lateral breast nodularity and a stable 2.3 benign adrenal adenoma. Past medical history reviewed. REVIEW OF SYSTEMS: CARDIOVASCULAR SYSTEM: No angina, palpitations. RESPIRATORY SYSTEM: As mentioned earlier. GI: No nausea, vomiting. : No dysuria or retention. NERVOUS SYSTEM: No numbness, weakness. CURRENT MEDICATIONS: Reviewed. They include: 1. [place] 5 mg q.6 p.r.n. 2. DuoNeb q.i.d. and p.r.n. 3. Xanax 0.25 t.i.d. 4. Zithromax 500 mg daily. 5. Symbicort 160/4.5 two puffs b.i.d. 6. Rocephin 1 gram daily. 7. Lasix 40 mg IV b.i.d. 8. Heparin 5000 units subcutaneously b.i.d. 9. NovoLog scale. 10.Solu-Medrol 60 IV q.6. 11.Singulair 10 mg daily. PHYSICAL EXAMINATION: Patient is alert and oriented x3. Pulse 106, blood pressure 122/61, respiration 20, temperature 98.4, pulse ox 94% on 2 L. HEENT: Conjunctivae normal. Oral mucosa moist. NECK: No jugular venous distention. No carotid bruit. No lymph node enlargement. CARDIOVASCULAR SYSTEM: S1, S2 muffled. RESPIRATORY SYSTEM: Breath sounds diminished at the bases. Bilateral scattered rhonchi and crackles. Expiratory wheezing also heard. ABDOMEN: Soft, non-tender. LEGS: No edema. No swelling. NERVOUS SYSTEM: No focal deficit. LABS: CBC within normal limits. Sodium 131, glucose 221. ASSESSMENT: 1. Chronic obstructive pulmonary disease, acute exacerbation, with possible acute purulent tracheobronchitis or bronchopneumonia on the right side. 2. History of congestive heart failure. 3. Sleep apnea. 4. Morbid obesity with a body mass index of 56.1. 5. History of appendectomy. 6. History of degenerative joint disease. 7. History of bilateral knee joint arthroplasty. 8. Remote history of nicotine dependence. 9. Hyponatremia. 10.FULL CODE. DISCUSSION AND RECOMMENDATIONS: In this 54-year-old gentleman who presented with multiple complex medical issues, we will monitor the patient closely, continue the bronchodilators, empiric antibiotics. NT-proBNP is only 268. Will continue the rest of the medications. I would also recommend a mask which is suitable for him at work to avoid further recurrence of symptoms. I would recommend the patient to closely follow with Dr. Hope. Pulmonary has been consulted. Further recommendations to follow. MMODL / IJN: [id number] /
[2020-04-03] MEDS: MONTELUKAST 10 MG TAB PO SCH (20:56)
[2020-04-04] MEDS: methylPREDNISolone SOD SUCCI 125 MG/2 ML VIAL IV SCH ×4 (01:12→23:41)
[2020-04-04] MEDS: SODIUM CHLORIDE 0.9% 1,000 ML IV SCH (05:05)
[2020-04-04 07:14] LABS: Glucose,Whole Blood 151 mg/dL (75-99)
[2020-04-04] MEDS: IPRATROPIUM-ALBUTEROL 3 ML NEB INHALATION SCH ×4 (07:23→19:30)
[2020-04-04] MEDS: SYMBICORT 160-4.5 MCG INHALER INHALATION SCH ×2 (07:24→19:30)
[2020-04-04] MEDS: INSULIN ASPART (NovoLOG) 100 UNIT/ML VIAL SQ SCH ×4 (07:50→21:28)
[2020-04-04] MEDS: FUROSEMIDE 10 MG/ML 4 ML VIAL IV SCH ×2 (07:50→21:28)
[2020-04-04] MEDS: HEPARIN SODIUM,PORCINE 5,000 UNIT/ML 1 ML VIAL SQ SCH ×2 (07:50→21:29)
[2020-04-04 08:38] LABS: Basophils % (A) 0 %; Eosinophils % (A) 0 %; HGB 14.5 gm/dL (13.0-17.5); Hypochromasia Moderate; Lymphocytes # (A) 0.5 k/uL (1.0-4.8); Lymphocytes % (A) 4 %; MCH 28.4 pg (25.0-35.0); MCHC 32.3 g/dL (31.0-37.0); MCV 88.1 fL (80.0-100.0); Mean Platelet Volume 7.9; Monocytes # (A) 0.2 k/uL (0-1.0); Monocytes % (A) 2 %; Neutrophils # (A) 12.8 k/uL (1.3-7.7); Neutrophils % (A) 94 %; Platelet Count 270 k/uL (150-450); RBC 5.11 m/uL (4.30-5.90); RDW 13.9 % (11.5-15.5); WBC 13.6 k/uL (3.8-10.6)
[2020-04-04 08:47] LABS: African American GFR (CKD) >90 (>60 ml/min/1.73 sqM); Anion Gap 7 mmol/L; Blood Urea Nitrogen 19 mg/dL (9-20); Calcium 8.7 mg/dL (8.4-10.2); Carbon Dioxide 34 mmol/L (22-30); Chloride 98 mmol/L (98-107); Glucose 195 mg/dL (74-99); Non-African American GFR(CKD) >90 (>60 ml/min/1.73 sqM); Potassium 4.5 mmol/L (3.5-5.1); Sodium 139 mmol/L (137-145)
[2020-04-04] MEDS ORDERED: AZITHROMYCIN 500 MG TAB PO SCH (09:00)
[2020-04-04 11:56] LABS: Glucose,Whole Blood 145 mg/dL (75-99)
[2020-04-04] MEDS: guaiFENesin 600 MG TABLET.ER PO SCH ×2 (12:26→21:28)
[2020-04-04] MEDS ORDERED: methylPREDNISolone SOD SUCCI 40 MG/ML 1 ML VIAL IV SCH ×2 (16:00→18:00)
[2020-04-04 16:28] LABS: Glucose,Whole Blood 91 mg/dL (75-99)
--- NOTE | 2020-04-04 18:49 | CONS ---
CONSULTATION PULMONARY/CRITICAL CARE CONSULTATION: DATE OF CONSULTATION: 04/04/2020 REASON FOR CONSULTATION: Shortness of breath. This is a pleasant, obese 54-year-old male who presented to the emergency department with complaints of difficulty breathing. It began yesterday prior to admission. His primary care physician is Dr. Hope. He apparently saw Dr. Hope, and Dr. Hope sent him into the emergency room to be evaluated. Prior to yesterday, the patient apparently was doing relatively well. He has a mild dry cough. No fever or chills. He is wheezy and tight in his chest. He denies any nausea, vomiting or diarrhea. The patient denies any chest pain or chest discomfort. Denies any fever or chills. There are no other complaints. The patient apparently does not see a lung doctor. He did state that he saw Dr. Meeks in the distant past but could not afford the inhalers that were prescribed. The patient currently sees, as I mentioned, Dr. Hope as a primary. Now under home medications it is listed that the patient takes albuterol and Lasix, but he told me when I spoke to him that he did not take any medications whatsoever. MEDICAL HISTORY: His medical history is positive for COPD/asthma, CHF, sleep apnea syndrome, morbid obesity as well as arthritis. SURGICAL HISTORY: His surgical history includes appendectomy and tonsillectomy. He has had bilateral knee arthroscopy and also UPPP surgery for sleep apnea syndrome. Additional surgeries include carpal tunnel release. SOCIAL HISTORY: Positive for previous tobacco use. He smoked about 30 years, 2 packs a day. He quit a number years back. He denies any alcohol or illicit drug use. FAMILY HISTORY: Positive for mother with deep venous thrombosis. The rest of his family history is benign. Clinically the patient looks relatively well. We see him down in the observation unit. The patient is seen along with his nurse, Ravi. The patient is talking without any conversational dyspnea, audible wheezing or use of accessory muscles. PHYSICAL EXAMINATION: VITAL SIGNS: Current vital signs are reviewed. Temperature is 97.8, heart rate 88, respiratory rate 20, blood pressure 146/65, mean 92, room-air saturation 93%. He is now on 2 L. GENERAL APPEARANCE: Appears in no acute distress. HEENT: Examination is grossly unremarkable. Mucous membranes are moist. No supplemental oxygen when I saw him in the observation unit. NECK: Supple. Full range of motion. No adenopathy or thyromegaly. Neck veins are flat. CARDIOVASCULAR: Examination reveals distant heart sounds. Heart rate 88 beats per minute. S1, S2 normal. No murmur. LUNGS: Diffuse expiratory wheezes and a few scattered rhonchi. No crackles. Breath sounds are equal. There is prolongation on forced maneuver. ABDOMEN: Obese. Bowel sounds are heard. EXTREMITIES: Intact. Slight edema. No cyanosis or clubbing. SKIN: Without rash. NEUROLOGIC: Neurologic examination is brief but nonfocal. The patient had a chest x-ray in the emergency department which showed no acute cardiopulmonary disease. A CT angiogram also in the emergency department showed no definite pulmonary embolism; mild diffuse bronchial wall thickening suggesting asthma or bronchitis or COPD, patchy opacity at the peripheral right lung base, likely atelectasis, and a lesion in the patient's left breast. The patient also has a stable 2.3 cm benign adrenal adenoma. The echocardiogram shows concentric left ventricular hypertrophy, preserved ejection fraction, mild tricuspid regurgitation, but no other gross abnormality. CURRENT MEDICATIONS: Reviewed. The patient is on Xanax, Zithromax, Symbicort, Rocephin, Lasix, guaifenesin, [place], heparin subcutaneously, DuoNeb, Solu-Medrol, Singulair and 0.9 saline at 20 mL/hour. ASSESSMENT: 1. Chronic obstructive pulmonary disease/asthma exacerbation, possibly complicated by mild purulent tracheobronchitis. No tarik pneumonia noted. 2. No evidence of pulmonary embolism. 3. Possible lesion in the left breast; should be evaluated by mammogram. 4. Previous history of heavy tobacco use. 5. Obesity. 6. Sleep apnea syndrome. 7. History of congestive heart failure, likely diastolic in nature. 8. Multiple orthopedic procedures. PLAN: The patient's medications are adjusted. The patient should be on a short-acting beta agonist, a short-acting muscarinic antagonist, inhaled corticosteroids, long-acting beta agonist, and systemic corticosteroids as well as a short course of antibiotics. Additional recommendations and suggestions are forthcoming. He should have followup in our office post discharge. He will need a complete PFT to evaluate his overall lung function. MMODL / IJN: [id number] /
[2020-04-04 20:30] LABS: Glucose,Whole Blood 133 mg/dL (75-99)
[2020-04-04] MEDS: MONTELUKAST 10 MG TAB PO SCH (21:28)
[2020-04-04] MEDS: AMOXIC-POT CLAV 875-125MG 1 EACH TAB PO SCH (21:28)
--- NOTE | 2020-04-04 21:29 | P.PN ---
Progress Note - Text Progress Note Date: 04/04/20 Presenting complaint: Short of breath Interval history: admitted with COPD exacerbation. And acute tracheobronchitis. Today-wheezing a bit less. Congested in the chest. Not able to expectorate. Normally swallows his sputum. Audibly congested. Eating better. Has been out of bed. Review of systems: Was done for constitutional, cardiovascular, GI, pulmonary. relevant finding as above Active Medications Hydrocodone Bitart/Acetaminophen ([place] 5-325) 1 each PO Q6HR PRN PRN Reason: Pain Last Admin: 04/03/20 10:06 Dose: 1 each Documented by: Albuterol/Ipratropium (Duoneb 0.5 Mg-3 Mg/3 Ml Soln) 3 ml INHALATION RT-QID [facility] Last Admin: 04/04/20 19:30 Dose: 3 ml Documented by: Albuterol/Ipratropium (Duoneb 0.5 Mg-3 Mg/3 Ml Soln) 3 ml INHALATION RT-Q4H PRN PRN Reason: Shortness Of Breath Or Wheezing Alprazolam (Xanax) 0.25 mg PO TID PRN PRN Reason: Anxiety Last Admin: 04/03/20 20:56 Dose: 0.25 mg Documented by: Amoxicillin/Clavulanate Potassium (Augmentin 875-125) 1 each PO Q12HR [facility] Budesonide/Formoterol Fumarate (Symbicort 160-4.5 Mcg Inhaler) 2 puff INHALATION RT-BID [facility] Last Admin: 04/04/20 19:30 Dose: 2 puff Documented by: Furosemide (Lasix) 40 mg IV Q12HR [facility] Last Admin: 04/04/20 07:50 Dose: 40 mg Documented by: Guaifenesin (Mucinex) 1,200 mg PO Q12HR [facility] Last Admin: 04/04/20 12:26 Dose: 1,200 mg Documented by: Heparin Sodium (Porcine) (Heparin) 5,000 unit SQ Q12HR [facility] Last Admin: 04/04/20 07:50 Dose: 5,000 unit Documented by: Sodium Chloride (Saline 0.9%) 1,000 mls @ 20 mls/hr IV .Q24H [facility] Last Admin: 04/04/20 05:05 Dose: Not Given Documented by: Insulin Aspart (Novolog) 0 unit SQ ACHS [facility]; Protocol Last Admin: 04/04/20 17:10 Dose: Not Given Documented by: Methylprednisolone Sodium Succinate (Solu-Medrol) 60 mg IV Q6HR [facility] Last Admin: 04/04/20 17:45 Dose: 60 mg Documented by: Montelukast Sodium (Singulair) 10 mg PO HS [facility] Last Admin: 04/03/20 20:56 Dose: 10 mg Documented by: On examination: VITAL SIGNS: [98, 115, 20, creatinine 23/74, 93% on room air] GENERAL APPEARANCE: BMI 56.1, laying in bed, audibly congested. HEENT: Normal external appearance of nose and ear. Oral cavity normal EYES: Pupils equal. Conjunctiva normal. NECK: JVD not raised. Mass not palpable. RESPIRATORY: Respiratory effort increased. Lungs-decreased breath sounds prolonged expiration and expiratory crackles. CARDIOVASCULAR: First and second sounds normal. No edema. ABDOMEN: Soft. Liver and spleen not palpable. No tenderness. No mass palpable. PSYCHIATRY: Alert and oriented x3. Mood and affect normal. INVESTIGATIONS, reviewed in the clinical context: White count 13.6 hemoglobin 14.5 potassium 4.5 Accu-Cheks noted 2-D echocardiogram-severe LVH, EF 60-65% Computed tomography scan just-1.4 cm left breast nodule, 2.3 cm adrenal adenoma Chest x-ray film showing no infiltrate Assessment: -Acute COPD exacerbation from acute tracheobronchitis -No pneumonia -Morbid obesity BMI 56.1 -Left breast nodule 1.4 cm -Adrenal adenoma 2.3 cm Plan: Patient to continue with bronchodilators IV steroids. We'll add Mucinex 1200 mg twice a day and also had a flutter valve. Encouraged to be out of bed. We'll have Dr. Sue Pratt follow the breast nodule.
[2020-04-05] MEDS: SODIUM CHLORIDE 0.9% 1,000 ML IV SCH (04:50)
[2020-04-05] MEDS: methylPREDNISolone SOD SUCCI 125 MG/2 ML VIAL IV SCH ×2 (05:06→13:34)
[2020-04-05 06:36] LABS: Basophils % (A) 0 %; Eosinophils % (A) 0 %; HCT 45.8 % (39.0-53.0); HGB 14.1 gm/dL (13.0-17.5); Hypochromasia Slight; Lymphocytes # (A) 0.5 k/uL (1.0-4.8); Lymphocytes % (A) 5 %; MCH 27.2 pg (25.0-35.0); MCHC 30.7 g/dL (31.0-37.0); MCV 88.6 fL (80.0-100.0); Mean Platelet Volume 7.5; Monocytes # (A) 0.2 k/uL (0-1.0); Monocytes % (A) 2 %; Neutrophils # (A) 10.5 k/uL (1.3-7.7); Neutrophils % (A) 93 %; Platelet Count 301 k/uL (150-450); RBC 5.17 m/uL (4.30-5.90); RDW 13.9 % (11.5-15.5); WBC 11.3 k/uL (3.8-10.6)
[2020-04-05 06:48] LABS: Glucose,Whole Blood 138 mg/dL (75-99)
[2020-04-05 06:50] LABS: African American GFR (CKD) >90 (>60 ml/min/1.73 sqM); Anion Gap 10 mmol/L; Blood Urea Nitrogen 23 mg/dL (9-20); Calcium 8.5 mg/dL (8.4-10.2); Carbon Dioxide 31 mmol/L (22-30); Chloride 97 mmol/L (98-107); Glucose 149 mg/dL (74-99); Non-African American GFR(CKD) >90 (>60 ml/min/1.73 sqM); Potassium 4.2 mmol/L (3.5-5.1); Sodium 138 mmol/L (137-145)
[2020-04-05] MEDS: SYMBICORT 160-4.5 MCG INHALER INHALATION SCH ×2 (07:35→19:30)
[2020-04-05] MEDS: IPRATROPIUM-ALBUTEROL 3 ML NEB INHALATION SCH ×4 (07:35→19:30)
[2020-04-05] MEDS: guaiFENesin 600 MG TABLET.ER PO SCH ×2 (08:07→21:29)
[2020-04-05] MEDS: HEPARIN SODIUM,PORCINE 5,000 UNIT/ML 1 ML VIAL SQ SCH ×2 (08:07→21:28)
[2020-04-05] MEDS: INSULIN ASPART (NovoLOG) 100 UNIT/ML VIAL SQ SCH ×4 (08:07→21:22)
[2020-04-05 11:39] LABS: Glucose,Whole Blood 158 mg/dL (75-99)
[2020-04-05] MEDS: AMOXIC-POT CLAV 875-125MG 1 EACH TAB PO SCH ×2 (13:18→21:29)
--- NOTE | 2020-04-05 14:11 | P.PN ---
Subjective Progress Note Date: 04/05/20 Principal diagnosis: Exacerbation of COPD On 04/05/2020 patient seen in follow-up in the observation unit. Zocor congested, lung sounds reveal diffuse wheezes, and rhonchi, he is on room air, his pulse ox is 92%, patient has been afebrile, hemodynamically has been stable, he is on nebulized bronchodilators, IV steroids, and oral antibiotics, no quite back to baseline, we'll continue inpatient treatment Objective - Vital Signs Vital signs: Vital Signs Temp 97.7 F 04/05/20 11:22 Pulse 91 04/05/20 11:22 Resp 12 04/05/20 11:22 BP 134/72 04/05/20 11:22 Pulse Ox 91 L 04/04/20 23:00 Intake & Output 04/04/20 04/05/20 04/05/20 18:59 06:59 18:59 Intake Total 320 1500 240 Balance 320 1500 240 Weight 178.7 kg Intake: Oral 320 1500 240 Other: Voiding Method Toilet Toilet Urinal Urinal # Voids 1 2 - Exam GENERAL EXAM: Alert, very pleasant, morbidly obese, 54-year-old white male, on 2 L of oxygen and the pulse ox of 92%, frequent congested cough comfortable in no apparent distress. HEAD: Normocephalic/atraumatic. EYES: Normal reaction of pupils, equal size. Conjunctiva pink, sclera white. NOSE: Clear with pink turbinates. THROAT: No erythema or exudates. NECK: No masses, no JVD, no thyroid enlargement, no adenopathy. CHEST: No chest wall deformity. Symmetrical expansion. LUNGS: Equal air entry with diffuse wheezes, and rhonchi wheeze, rhonchi or dullness. CVS: Regular rate and rhythm, normal S1 and S2, no gallops, no murmurs, no rubs ABDOMEN: Soft, nontender. No hepatosplenomegaly, normal bowel sounds, no guarding or rigidity. EXTREMITIES: No clubbing, no edema, no cyanosis, 2+ pulses and upper and lower extremities. MUSCULOSKELETAL: Muscle strength and tone normal. SPINE: No scoliosis or deformity SKIN: No rashes CENTRAL NERVOUS SYSTEM: Alert and oriented -3. No focal deficits, tone is n ormal in all 4 extremities. PSYCHIATRIC: Alert and oriented -3. Appropriate affect. Intact judgment and insight. - Labs CBC & Chem 7: 04/05/20 05:25 04/05/20 05:25 Labs: Abnormal Lab Results - Last 24 Hours (Table) 04/04/20 04/05/20 04/05/20 Range/Units 20:26 05:25 05:25 WBC 11.3 H (3.8-10.6) k/uL MCHC 30.7 L (31.0-37.0) g/dL Neutrophils # 10.5 H (1.3-7.7) k/uL Lymphocytes # 0.5 L (1.0-4.8) k/uL Chloride 97 L (98-107) mmol/L Carbon Dioxide 31 H (22-30) mmol/L BUN 23 H (9-20) mg/dL Glucose 149 H (74-99) mg/dL POC Glucose (mg/dL) 133 H (75-99) mg/dL 04/05/20 04/05/20 Range/Units 06:44 11:37 WBC (3.8-10.6) k/uL MCHC (31.0-37.0) g/dL Neutrophils # (1.3-7.7) k/uL Lymphocytes # (1.0-4.8) k/uL Chloride (98-107) mmol/L Carbon Dioxide (22-30) mmol/L BUN (9-20) mg/dL Glucose (74-99) mg/dL POC Glucose (mg/dL) 138 H 158 H (75-99) mg/dL Assessment and Plan Plan: Assessment: #1. Acute exacerbation of chronic obstructive pulmonary disease/chronic bronchial asthma exacerbation, possibly complicated by purulent tracheobronchitis, no evidence of tarik pneumonia noted #2. No evidence of pulmonary embolism #3. A possible lesion in the left breast, should be followed up with a mammogram #4. History of heavy tobacco use #5. Sleep apnea syndrome #6. History of congestive heart failure possibly diastolic in nature #7. Multiple orthopedic procedures #8. Morbid obesity Plan: Continue current medical treatment, continue same dose steroids nebulized bronchodilators, and empiric antibiotics, patient remains bronchospastic and con gested, not quite back to baseline, we'll continue inpatient treatment, will reevaluate in another 24 hours, I performed a history & physical examination of the patient and discussed their management with my nurse practitioner, Rubi Acosta. I reviewed the nurse practitioner's note and agree with the documented findings and plan of care. Lung sounds are positive for diffuse wheezes throughout the lung escalante. The findings and the impression was discussed with the patient. I attest to the documentation by the nurse practitioner. Time with Patient: Less than 30
[2020-04-05 17:05] LABS: Glucose,Whole Blood 102 mg/dL (75-99)
[2020-04-05] MEDS: methylPREDNISolone SOD SUCCI 40 MG/ML 1 ML VIAL IV SCH (17:13)
[2020-04-05 21:20] LABS: Glucose,Whole Blood 137 mg/dL (75-99)
[2020-04-05] MEDS: MONTELUKAST 10 MG TAB PO SCH (21:29)
--- NOTE | 2020-04-05 21:32 | P.PN ---
Progress Note - Text Progress Note Date: 04/05/20 Presenting complaint: Short of breath Interval history: admitted with COPD exacerbation. And acute tracheobronchitis. Today-wheezing is better. Less congested in his chest. Did tolerate her diet.. Has been out of bed. Less short of breath. Though feels tired Review of systems: Was done for constitutional, cardiovascular, GI, pulmonary. relevant finding as above Active Medications Hydrocodone Bitart/Acetaminophen ([place] 5-325) 1 each PO Q6HR PRN PRN Reason: Pain Last Admin: 04/03/20 10:06 Dose: 1 each Documented by: Albuterol/Ipratropium (Duoneb 0.5 Mg-3 Mg/3 Ml Soln) 3 ml INHALATION RT-QID [facility] Last Admin: 04/05/20 19:30 Dose: 3 ml Documented by: Albuterol/Ipratropium (Duoneb 0.5 Mg-3 Mg/3 Ml Soln) 3 ml INHALATION RT-Q4H PRN PRN Reason: Shortness Of Breath Or Wheezing Alprazolam (Xanax) 0.25 mg PO TID PRN PRN Reason: Anxiety Last Admin: 04/03/20 20:56 Dose: 0.25 mg Documented by: Amoxicillin/Clavulanate Potassium (Augmentin 875-125) 1 each PO Q12HR [facility] Last Admin: 04/05/20 21:29 Dose: 1 each Documented by: Budesonide/Formoterol Fumarate (Symbicort 160-4.5 Mcg Inhaler) 2 puff INHALATION RT-BID [facility] Last Admin: 04/05/20 19:30 Dose: 2 puff Documented by: Guaifenesin (Mucinex) 1,200 mg PO Q12HR [facility] Last Admin: 04/05/20 21:29 Dose: 1,200 mg Documented by: Heparin Sodium (Porcine) (Heparin) 5,000 unit SQ Q12HR [facility] Last Admin: 04/05/20 21:28 Dose: 5,000 unit Documented by: Sodium Chloride (Saline 0.9%) 1,000 mls @ 20 mls/hr IV .Q24H [facility] Last Admin: 04/05/20 04:50 Dose: Not Given Documented by: Insulin Aspart (Novolog) 0 unit SQ [facility]; Protocol Last Admin: 04/05/20 21:22 Dose: Not Given Documented by: Methylprednisolone Sodium Succinate (Solu-Medrol) 40 mg IV Q8HR [facility] Last Admin: 04/05/20 17:13 Dose: 40 mg Documented by: Montelukast Sodium (Singulair) 10 mg PO HS [facility] Last Admin: 04/05/20 21:29 Dose: 10 mg Documented by: On examination: VITAL SIGNS: 97.7, 91, 12, 134/72, 91% on room air GENERAL APPEARANCE: Laying in bed, more comfortable today HEENT: Normal external appearance of nose and ear. Oral cavity normal EYES: Pupils equal. Conjunctiva normal. NECK: JVD not raised. Mass not palpable. RESPIRATORY: Respiratory effort increased. Lungs-decreased breath sounds . CARDIOVASCULAR: First and second sounds normal. No edema. ABDOMEN: Soft. Liver and spleen not palpable. No tenderness. No mass palpable. PSYCHIATRY: Alert and oriented x3. Mood and affect normal. INVESTIGATIONS, reviewed in the clinical context: White count 11.3 potassium 4.2 creatinine 0.74 Previous testing White count 13.6 hemoglobin 14.5 potassium 4.5 Accu-Cheks noted 2-D echocardiogram-severe LVH, EF 60-65% Computed tomography scan just-1.4 cm left breast nodule, 2.3 cm adrenal adenoma Chest x-ray film showing no infiltrate Assessment: -Acute COPD exacerbation from acute tracheobronchitis-improving -No pneumonia -Morbid obesity BMI 56.1 -Left breast nodule 1.4 cm-follow with Dr. Sue Pratt -Adrenal adenoma 2.3 cm Plan: Discussed with patient. Encouraged to be out of bed. Cut back on Solu-Medrol. Hopefully discharge in 24 hours. Discussed with the patient.
[2020-04-06] MEDS: methylPREDNISolone SOD SUCCI 40 MG/ML 1 ML VIAL IV SCH ×2 (01:00→09:28)
[2020-04-06] MEDS: SODIUM CHLORIDE 0.9% 1,000 ML IV SCH (03:30)
[2020-04-06 07:34] LABS: Glucose,Whole Blood 149 mg/dL (75-99)
[2020-04-06 07:38] VITALS: BP 141/82; RESP 16; TEMP 97.7
[2020-04-06] MEDS: SYMBICORT 160-4.5 MCG INHALER INHALATION SCH (08:31)
[2020-04-06] MEDS: IPRATROPIUM-ALBUTEROL 3 ML NEB INHALATION SCH ×2 (08:31→11:41)
[2020-04-06 08:34] VITALS: PULSE 100
[2020-04-06] MEDS: guaiFENesin 600 MG TABLET.ER PO SCH (09:28)
[2020-04-06] MEDS: HEPARIN SODIUM,PORCINE 5,000 UNIT/ML 1 ML VIAL SQ SCH (09:28)
[2020-04-06] MEDS: INSULIN ASPART (NovoLOG) 100 UNIT/ML VIAL SQ SCH ×2 (09:29→12:08)
[2020-04-06] MEDS: AMOXIC-POT CLAV 875-125MG 1 EACH TAB PO SCH (09:30)
--- NOTE | 2020-04-06 09:31 | P.PN ---
Subjective Progress Note Date: 04/06/20 Principal diagnosis: Acute exacerbation of COPD The patient is seen today 04/06/2020 in follow-up on the observation unit. He is awake and alert in no acute distress. Currently resting flat in bed. He is on room air with an O2 saturation of 95%. He does have a loose nonproductive cough. No fever, chills or night sweats. He is afebrile. Hemodynamically stable. He's been maintained on Symbicort, DuoNeb's, Singulair, IV Solu-Medrol and empiric antibiotics in the form of Augmentin. Heparin for DVT prophylaxis. Objective - Vital Signs Vital signs: Vital Signs Temp 97.7 F 04/06/20 07:36 Pulse 100 04/06/20 08:42 Resp 16 04/06/20 07:36 BP 141/82 04/06/20 07:36 Pulse Ox 95 04/06/20 07:36 Intake & Output 04/05/20 04/06/20 04/06/20 18:59 06:59 18:59 Intake Total 990 Balance 990 Intake: Intake, IV Titration 0 Amount Sodium Chloride 0.9% 1, 0 000 ml @ 20 mls/hr IV . Q24H [facility] Rx#:[id number] Oral 990 Other: Voiding Method Toilet Urinal # Voids 2 - Exam GENERAL EXAM: Alert, very pleasant, morbidly obese, 54-year-old male patient, on room air and the pulse ox of 95%, congested cough comfortable in no apparent distress. HEAD: Normocephalic/atraumatic. EYES: Normal reaction of pupils, equal size. Conjunctiva pink, sclera white. NOSE: Clear with pink turbinates. THROAT: No erythema or exudates. NECK: No masses, no JVD, no thyroid enlargement, no adenopathy. CHEST: No chest wall deformity. Symmetrical expansion. LUNGS: Equal air entry with and expiratory wheezes, and rhonchi. CVS: Regular rate and rhythm, normal S1 and S2, no gallops, no murmurs, no rubs ABDOMEN: Soft, nontender. No hepatosplenomegaly, normal bowel sounds, no guarding or rigidity. EXTREMITIES: No clubbing, no edema, no cyanosis, 2+ pulses and upper and lower extremities. MUSCULOSKELETAL: Muscle strength and tone normal. SPINE: No scoliosis or deformity SKIN: No rashes CENTRAL NERVOUS SYSTEM: No focal deficits, tone is normal in all 4 extremities. PSYCHIATRIC: Alert and oriented -3. Appropriate affect. Intact judgment and insight. - Labs CBC & Chem 7: 04/05/20 05:25 04/05/20 05:25 Labs: Abnormal Lab Results - Last 24 Hours (Table) 04/05/20 04/05/20 04/05/20 Range/Units 11:37 16:57 21:18 POC Glucose (mg/dL) 158 H 102 H 137 H (75-99) mg/dL 04/06/20 Range/Units 07:32 POC Glucose (mg/dL) 149 H (75-99) mg/dL Assessment and Plan Assessment: #1. Acute exacerbation of chronic obstructive pulmonary disease/chronic bronchial asthma exacerbation, possibly complicated by purulent tracheobronchitis, no evidence of tarik pneumonia noted #2. No evidence of pulmonary embolism #3. A possible lesion in the left breast, should be followed up with a mammogram #4. History of heavy tobacco use #5. Sleep apnea syndrome #6. History of congestive heart failure possibly diastolic in nature #7. Multiple orthopedic procedures #8. Morbid obesity Plan: The patient was seen and evaluated by Dr. Smith He is cleared for discharge from the pulmonary standpoint Complete a course of antibiotics Complete a course of prednisone taper starting at 40 mg 4 days Follow up with Dr. Meeks in our office in 1-2 weeks' He is encouraged to call sooner with any recurrence of symptoms or other questions or concerns I, the cosigning physician, performed a history & physical examination of the patient. Lungs sounds with end expiratory wheeze, few scattered rhonchi, diminished. Maintaining good O2 saturations in the 90s on room air. I discussed the assessment and plan of care with my nurse practitioner, Viviane martinez. I attest to the above note as dictated by her.
--- NOTE | 2020-04-06 23:39 | P.DS ---
Providers Date of admission: 04/04/20 10:02 Expected date of discharge: 04/06/20 Attending physician: Kiran Quiroz Consults: 04/03/20 16:46 Consult Physician Routine Consulting Provider: Han Smith Consult Reason/Comments: copd Do you want consulting provider notified?: Yes 04/04/20 21:29 Consult Physician Routine Consulting Provider: Luh Baltazar Consult Reason/Comments: Left breast nodule Do you want consulting provider notified?: Yes Primary care physician: [facility] Hospital Course: Presenting complaint: Short of breath Interval history: admitted with COPD exacerbation. And acute tracheobronchitis.treated with bronchodilators, IV steroids, Augmentin. Today-doing much better. Breathing improved.much improved wheezing. No congestion. Tolerating diet. Has been out of bed. Care was discussed with the patient. Prescription given for nebulizer. Advised about using a mask treated at work. Patient may return to work next Wednesday. Note given for the same.patient to follow-up with Dr. Ana Pratt for his left breast nodule.also left adrenal adenoma can be followed up with Dr. Hope as an outpatient. For further workup. Consultation: Dr. Smith from pulmonary Dr. Ana Pratt On examination: VITAL SIGNS: 97.7, 79, 16, 141/82, 95% on room air GENERAL APPEARANCE: sitting up, looking much better today HEENT: Normal external appearance of nose and ear. Oral cavity normal EYES: Pupils equal. Conjunctiva normal. NECK: JVD not raised. Mass not palpable. RESPIRATORY: Respiratory effort increased. Lungs-improved air entry . CARDIOVASCULAR: First and second sounds normal. No edema. ABDOMEN: Soft. Liver and spleen not palpable. No tenderness. No mass palpable. PSYCHIATRY: Alert and oriented x3. Mood and affect normal. INVESTIGATIONS, reviewed in the clinical context: White count 11.3 potassium 4.2 creatinine 0.74 Previous testing White count 13.6 hemoglobin 14.5 potassium 4.5 Accu-Cheks noted 2-D echocardiogram-severe LVH, EF 60-65% Computed tomography scan just-1.4 cm left breast nodule, 2.3 cm adrenal adenoma Chest x-ray film showing no infiltrate Assessment: -Acute COPD exacerbation from acute tracheobronchitis-POA -No pneumonia -Morbid obesity BMI 56.1 -Left breast nodule 1.4 cm-follow with Dr. Sue Pratt -Adrenal adenoma 2.3 cm-outpatient follow-up PCP disposition: Home Patient Condition at Discharge: Stable Plan - Discharge Summary Discharge Rx Participant: Yes New Discharge Prescriptions: New Amoxic-Pot Clav 875-125Mg [Augmentin 875-125] 1 each PO Q12HR #6 tab Ipratropium-Albuterol Nebulize [Duoneb 0.5 mg-3 mg/3 ml Soln] 3 ml INHALATION TID #90 ml guaiFENesin [Mucinex] 1,200 mg PO Q12HR #20 tablet.er predniSONE 10 mg PO DAILY #30 tab Montelukast [Singulair] 10 mg PO HS #30 tab Budesonide-Formot 160-4.5 Mcg [Symbicort 160-4.5 Mcg Inhaler] 2 puff INHALATION RT-BID #1 puff Continue Albuterol Nebulized [Ventolin Nebulized] 2.5 mg PO RT-BID PRN PRN Reason: Shortness Of Breath Furosemide [Lasix] 40 mg PO DAILY PRN PRN Reason: Edema Discharge Medication List Albuterol Nebulized [Ventolin Nebulized] 2.5 mg PO RT-BID PRN 06/10/19 [History] Furosemide [Lasix] 40 mg PO DAILY PRN 04/03/20 [History] Amoxic-Pot Clav 875-125Mg [Augmentin 875-125] 1 each PO Q12HR #6 tab 04/06/20 [Rx] Budesonide-Formot 160-4.5 Mcg [Symbicort 160-4.5 Mcg Inhaler] 2 puff INHALATION RT-BID #1 puff 04/06/20 [Rx] Ipratropium-Albuterol Nebulize [Duoneb 0.5 mg-3 mg/3 ml Soln] 3 ml INHALATION TID #90 ml 04/06/20 [Rx] Montelukast [Singulair] 10 mg PO HS #30 tab 04/06/20 [Rx] guaiFENesin [Mucinex] 1,200 mg PO Q12HR #20 tablet.er 04/06/20 [Rx] predniSONE 10 mg PO DAILY #30 tab 04/06/20 [Rx] Follow up Appointment(s)/Referral(s): Marilou Meeks MD [STAFF PHYSICIAN] - 1 Week Alfredo Hope DO [Primary Care Provider] - 1-2 days Discharge/Stand Alone Forms: Work/School Release / Restrict Discharge Disposition: HOME SELF-CARE
[2020-04-07] MEDS ORDERED: predniSONE 20 MG TAB PO SCH (09:00)
== END 2020-04-06 14:10 | disposition home or self-care (01) | DRG 191 ==
LOC: EC 15:18 → 4SSUR 18:21 → OBSVTOIN 04-04 10:02 → 1SOBS 04-04 11:16
PROVIDERS: ADMIT Hospitalist; ATTEND Hospitalist
DX: J44.1 Chronic obstructive pulmonary disease with (acute) exacerbation (principal); J45.901 Unspecified asthma with (acute) exacerbation; I50.32 Chronic diastolic (congestive) heart failure; Z68.43 Body mass index [BMI] 50.0-59.9, adult; E87.1 Hypo-osmolality and hyponatremia; J44.0 Chronic obstructive pulmonary disease with (acute) lower respiratory infection; J20.9 Acute bronchitis, unspecified; D35.02 Benign neoplasm of left adrenal gland; E66.01 Morbid (severe) obesity due to excess calories; G47.30 Sleep apnea, unspecified; N63.20 Unspecified lump in the left breast, unspecified quadrant; Z79.899 Other long term (current) drug therapy; Z87.891 Personal history of nicotine dependence; Z90.49 Acquired absence of other specified parts of digestive tract; Z96.653 Presence of artificial knee joint, bilateral; Z20.828 Contact with and (suspected) exposure to other viral communicable diseases; Z79.51 Long term (current) use of inhaled steroids; Z79.52 Long term (current) use of systemic steroids; I07.1 Rheumatic tricuspid insufficiency; I50.9 Heart failure, unspecified
CPT/HCPCS: 36415; 71046; 71275; 80048; 80053; 80306; 81001; 83605; 83880; 84484; 85025; 85379; 85610; 85730; 87635; 93005; 93306; 94640; 94667; 94760; 96374; 99285

== ENCOUNTER → 2020-04-15 | Outpatient (CLI) | payer BC ==
--- NOTE | 2020-04-16 09:35 | MM ---
Reason for exam: clinical finding. Physical Findings: Nurse Summary: 1.5cm nodule in the left breast at 1 o'clock (nurse dw). MG Diagnostic Mammo w CAD [facility] Bilateral CC and MLO view(s) were taken. Bilateral retroareolar gynecomastia. Left 1.4cm mass on prior CT is not definitively seen. Possible lymph node. Ultrasound will be performed. These results were verbally communicated with the patient and result sheet given to the patient on 04/15/20. ASSESSMENT: Incomplete: need additional imaging evaluation, BI-RAD 0 RECOMMENDATION: Ultrasound of the left breast.
--- NOTE | 2020-04-16 09:37 | USB ---
Reason for exam: additional evaluation requested from abnormal screening. US Breast Limited LT Technologist: Cherry Navarrete Left limited breast ultrasound including focal area of concern, retroareolar and axilla demonstrates a 1.2 x 1.1 x 0.9cm hyperechoic, lipomatous lesion at the axilla. These results were verbally communicated with the patient and result sheet given to the patient on 04/15/20. ASSESSMENT: Benign, BI-RAD 2 RECOMMENDATION: Clinical management of the left breast. No mammographic or ultrasound breast correlate. Consider [address] scan.
== END | disposition home or self-care (01) ==
LOC: RADMAMWWP 12:35
PROVIDERS: ATTEND Family Medicine
DX: R92.8 Other abnormal and inconclusive findings on diagnostic imaging of breast (principal); N64.4 Mastodynia
CPT/HCPCS: 77066

== ENCOUNTER → 2020-06-04 | Outpatient (CLI) | payer BC | END | disposition home or self-care (01) | LOC: RADECHMAIN 14:01 | PROVIDERS: ATTEND Family Medicine | DX: Z53.9 Procedure and treatment not carried out, unspecified reason (principal) ==

== ENCOUNTER 2020-10-14 04:57 | Inpatient (IN) | payer BC, OTHER ==
[2020-10-14] MEDS ORDERED: SODIUM CHLORIDE 0.9% 1,000 ML IV STA ×2 (05:28)
[2020-10-14] MEDS ORDERED: IPRATROPIUM 0.5 MG/2.5 ML NEBU INHALATION STA (05:28)
[2020-10-14] MEDS ORDERED: SODIUM CHLORIDE 0.9% 500 ML 500 ML IV STA (05:28)
[2020-10-14] MEDS ORDERED: ALBUTEROL NEBULIZED 2.5 MG/3 ML INHALATION STA (05:28)
[2020-10-14] MEDS ORDERED: methylPREDNISolone SOD SUCCI 125 MG/2 ML VIAL IV STA (05:28)
--- NOTE | 2020-10-14 05:29 | ED ---
SOB HPI - General Chief Complaint: Shortness of Breath Stated Complaint: SURYA Time Seen by Provider: 10/14/20 05:27 Source: patient, EMS, RN notes reviewed, old records reviewed Mode of arrival: EMS - History of Present Illness Initial Comments: This is a 54-year-old male DF for evaluation patient is multiple complaints breathing issues and shortness of breath with is worse than normal. History of COPD and asthma denies fever or chest pain. Patient does have significant lower extremity edema swelling and redness. He does have history of some cellulitis with this is as worse as his been with drainage and purulent drainage, increasing pain and itching MD Complaint: shortness of breath, cough, "asthma attack", anxiety -: hour(s) (4) Severity: moderate Severity scale (1-10): 6 Quality: dull, aching Consistency: constant Improves With: nothing Worsens With: exertion, movement Known History Of: COPD, asthma Context: recent URI Associated Symptoms: cough, sputum production, nausea/vomiting Treatments Prior to Arrival: none - Related Data Home Medications Medication Instructions Recorded Confirmed Albuterol Nebulized [Ventolin 2.5 mg PO RT-BID PRN 06/10/19 04/03/20 Nebulized] Furosemide [Lasix] 40 mg PO DAILY PRN 04/03/20 04/03/20 Previous Rx's Medication Instructions Recorded Amoxic-Pot Clav 875-125Mg 1 each PO Q12HR #6 tab 04/06/20 [Augmentin 875-125] Budesonide-Formot 160-4.5 Mcg 2 puff INHALATION RT-BID #1 puff 04/06/20 [Symbicort 160-4.5 Mcg Inhaler] Ipratropium-Albuterol Nebulize 3 ml INHALATION TID #90 ml 04/06/20 [Duoneb 0.5 mg-3 mg/3 ml Soln] Montelukast [Singulair] 10 mg PO HS #30 tab 04/06/20 guaiFENesin [Mucinex] 1,200 mg PO Q12HR #20 tablet.er 04/06/20 predniSONE 10 mg PO DAILY #30 tab 04/06/20 Allergies Allergy/AdvReac Type Severity Reaction Status Date / Time No Known Allergies Allergy Verified 10/14/20 05:06 Review of Systems ROS Statement: Those systems with pertinent positive or pertinent negative responses have been documented in the HPI. ROS Other: All systems not noted in ROS Statement are negative. Past Medical History Past Medical History: Asthma, COPD, Musculoskeletal Disorder, Sleep Apnea/CPAP/BIPAP Additional Past Medical History / Comment(s): Morbid obesity, History of Any Multi-Drug Resistant Organisms: None Reported Past Surgical History: Appendectomy, Orthopedic Surgery, Tonsillectomy Additional Past Surgical History / Comment(s): bilateral knee arthroscopy, surgery for sleep apnea, carpal tunnel , uvula and adnoids removed for sleep apnea, Past Anesthesia/Blood Transfusion Reactions: No Reported Reaction Past Psychological History: No Psychological Hx Reported Smoking Status: Former smoker Past Alcohol Use History: None Reported Past Drug Use History: None Reported - Past Family History Mother History Unknown: Yes Family Medical History: Deep Vein Thrombosis (DVT) General Exam General appearance: alert, in no apparent distress Head exam: Present: atraumatic, normocephalic, normal inspection Eye exam: Present: normal appearance, PERRL, EOMI. Absent: scleral icterus, conjunctival injection, periorbital swelling ENT exam: Present: normal exam, mucous membranes moist Neck exam: Present: normal inspection. Absent: tenderness, meningismus, lymphadenopathy Respiratory exam: Present: normal lung sounds bilaterally. Absent: respiratory distress, wheezes, rales, rhonchi, stridor Cardiovascular Exam: Present: regular rate, normal rhythm, normal heart sounds. Absent: systolic murmur, diastolic murmur, rubs, gallop, clicks GI/Abdominal exam: Present: soft, normal bowel sounds. Absent: distended, tenderness, guarding, rebound, rigid Extremities exam: Present: normal inspection, full ROM, normal capillary refill. Absent: tenderness, pedal edema, joint swelling, calf tenderness Back exam: Present: normal inspection Neurological exam: Present: alert, oriented X3, CN II-XII intact Psychiatric exam: Present: normal affect, normal mood Skin exam: Present: warm, dry, intact, normal color. Absent: rash Course Vital Signs 10/14/20 10/14/20 10/14/20 05:06 05:09 05:43 Temperature 97.1 F L Pulse Rate 102 H Respiratory 28 H 26 H 22 Rate Blood Pressure 151/107 134/75 O2 Sat by Pulse 100 93 L Oximetry - Reevaluation(s) Reevaluation #1: 10/14/20 06:28 Medical records reviewed Reevaluation #2: 10/14/20 06:28 No improvement here in the emergency room is regards to symptoms of itching and swelling of lower extremity as well as significant shortness of Reevaluation #3: 10/14/20 06:28 Patient informed results and questions have been answered Medical Decision Making - Lab Data Result diagrams: 10/14/20 05:40 10/14/20 05:40 Lab Results 10/14/20 10/14/20 10/14/20 Range/Units 05:40 05:40 05:40 WBC 7.2 (3.8-10.6) k/uL RBC 5.00 (4.30-5.90) m/uL Hgb 14.2 (13.0-17.5) gm/dL Hct 42.4 (39.0-53.0) % MCV 84.8 (80.0-100.0) fL MCH 28.4 (25.0-35.0) pg MCHC 33.5 (31.0-37.0) g/dL RDW 14.0 (11.5-15.5) % Plt Count 270 (150-450) k/uL MPV 6.9 Neutrophils % 83 % Lymphocytes % 9 % Monocytes % 5 % Eosinophils % 1 % Basophils % 0 % Neutrophils # 6.0 (1.3-7.7) k/uL Lymphocytes # 0.6 L (1.0-4.8) k/uL Monocytes # 0.4 (0-1.0) k/uL Eosinophils # 0.1 (0-0.7) k/uL Basophils # 0.0 (0-0.2) k/uL PT 9.6 (9.0-12.0) sec INR 0.9 (<1.2) APTT 26.8 (22.0-30.0) sec D-Dimer 0.77 H (<0.60) mg/L FEU Sodium 137 (137-145) mmol/L Potassium 4.2 (3.5-5.1) mmol/L Chloride 101 (98-107) mmol/L Carbon Dioxide 28 (22-30) mmol/L Anion Gap 8 mmol/L BUN 14 (9-20) mg/dL Creatinine 0.72 (0.66-1.25) mg/dL Est GFR (CKD-EPI)AfAm >90 (>60 ml/min/1.73 sqM) Est GFR (CKD-EPI)NonAf >90 (>60 ml/min/1.73 sqM) Glucose 125 H (74-99) mg/dL Calcium 8.7 (8.4-10.2) mg/dL Magnesium 2.1 (1.6-2.3) mg/dL Total Bilirubin 0.8 (0.2-1.3) mg/dL AST 22 (17-59) U/L ALT 18 (4-49) U/L Alkaline Phosphatase 109 (38-126) U/L Lactate Dehydrogenase 455 (313-618) U/L Troponin I (0.000-0.034) ng/mL C-Reactive Protein 63.9 H (<10.0) mg/L NT-Pro-B Natriuret Pep pg/mL Total Protein 6.4 (6.3-8.2) g/dL Albumin 3.8 (3.5-5.0) g/dL 10/14/20 10/14/20 Range/Units 05:40 05:40 WBC (3.8-10.6) k/uL RBC (4.30-5.90) m/uL Hgb (13.0-17.5) gm/dL Hct (39.0-53.0) % MCV (80.0-100.0) fL MCH (25.0-35.0) pg MCHC (31.0-37.0) g/dL RDW (11.5-15.5) % Plt Count (150-450) k/uL MPV Neutrophils % % Lymphocytes % % Monocytes % % Eosinophils % % Basophils % % Neutrophils # (1.3-7.7) k/uL Lymphocytes # (1.0-4.8) k/uL Monocytes # (0-1.0) k/uL Eosinophils # (0-0.7) k/uL Basophils # (0-0.2) k/uL PT (9.0-12.0) sec INR (<1.2) APTT (22.0-30.0) sec D-Dimer (<0.60) mg/L FEU Sodium (137-145) mmol/L Potassium (3.5-5.1) mmol/L Chloride (98-107) mmol/L Carbon Dioxide (22-30) mmol/L Anion Gap mmol/L BUN (9-20) mg/dL Creatinine (0.66-1.25) mg/dL Est GFR (CKD-EPI)AfAm (>60 ml/min/1.73 sqM) Est GFR (CKD-EPI)NonAf (>60 ml/min/1.73 sqM) Glucose (74-99) mg/dL Calcium (8.4-10.2) mg/dL Magnesium (1.6-2.3) mg/dL Total Bilirubin (0.2-1.3) mg/dL AST (17-59) U/L ALT (4-49) U/L Alkaline Phosphatase (38-126) U/L Lactate Dehydrogenase (313-618) U/L Troponin I <0.012 (0.000-0.034) ng/mL C-Reactive Protein (<10.0) mg/L NT-Pro-B Natriuret Pep 119 pg/mL Total Protein (6.3-8.2) g/dL Albumin (3.5-5.0) g/dL - EKG Data -: EKG Interpreted by Me (EKG sinus rhythm 89, [place] 134 QRS 122 QTC 462) - Radiology Data Radiology results: report reviewed (Chest x-ray does show interstitial edema and infiltrate), image reviewed Disposition Clinical Impression: SIRS (systemic inflammatory response syndrome), Acute exacerbation of chronic obstructive airways disease, COPD (chronic obstructive pulmonary disease), Bilateral cellulitis of lower leg, Obesity Disposition: ADMITTED IP TO THIS HOSP Condition: Fair Is patient prescribed a controlled substance at d/c from ED?: No Referrals: Alfredo Hope DO [Primary Care Provider] - 1-2 days
[2020-10-14 05:54] LABS: Basophils % (A) 0 %; Eosinophils # (A) 0.1 k/uL (0-0.7); Eosinophils % (A) 1 %; HCT 42.4 % (39.0-53.0); HGB 14.2 gm/dL (13.0-17.5); Lymphocytes # (A) 0.6 k/uL (1.0-4.8); Lymphocytes % (A) 9 %; MCH 28.4 pg (25.0-35.0); MCHC 33.5 g/dL (31.0-37.0); MCV 84.8 fL (80.0-100.0); Mean Platelet Volume 6.9; Monocytes # (A) 0.4 k/uL (0-1.0); Monocytes % (A) 5 %; Neutrophils % (A) 83 %; Platelet Count 270 k/uL (150-450); WBC 7.2 k/uL (3.8-10.6)
[2020-10-14 06:04] LABS: ALT 18 U/L (4-49); AST 22 U/L (17-59); African American GFR (CKD) >90 (>60 ml/min/1.73 sqM); Albumin 3.8 g/dL (3.5-5.0); Alkaline Phosphatase 109 U/L (38-126); Anion Gap 8 mmol/L; Blood Urea Nitrogen 14 mg/dL (9-20); C Reactive Protein 63.9 mg/L (<10.0); Calcium 8.7 mg/dL (8.4-10.2); Carbon Dioxide 28 mmol/L (22-30); Chloride 101 mmol/L (98-107); Glucose 125 mg/dL (74-99); LDH 455 U/L (313-618); Magnesium 2.1 mg/dL (1.6-2.3); Non-African American GFR(CKD) >90 (>60 ml/min/1.73 sqM); Potassium 4.2 mmol/L (3.5-5.1); Sodium 137 mmol/L (137-145); Total Bilirubin 0.8 mg/dL (0.2-1.3); Total Protein 6.4 g/dL (6.3-8.2)
[2020-10-14 06:06] LABS: INR 0.9 (<1.2); Partial Thromboplastin Time 26.8 sec (22.0-30.0); Prothrombin Time 9.6 sec (9.0-12.0)
--- NOTE | 2020-10-14 06:12 | XR ---
EXAM: XR Chest, 1 View CLINICAL HISTORY: sob TECHNIQUE: Frontal view of the chest. COMPARISON: 08/15/2020. FINDINGS: Limitations: Hypoventilation limits evaluation. Lungs: Right infrahilar/basilar atelectasis and/or infiltrates. Peribronchial cuffing, which may represent infectious versus inflammatory airways disease. Pleural space: Unremarkable. No pneumothorax. Heart: Mild cardiomegaly, not seen on prior study, which may be secondary to portable technique. Mediastinum: Unremarkable. Bones/joints: Unremarkable. IMPRESSION: 1. Mild cardiomegaly, not seen on prior study, which may be secondary to portable technique. 2. Right infrahilar/basilar atelectasis and/or infiltrates. PA and lateral views of the chest are recommended for further evaluation. 3. Peribronchial cuffing, which may represent infectious versus inflammatory airways disease.
[2020-10-14 06:22] LABS: D-Dimer 0.77 mg/L FEU (<0.60)
[2020-10-14] MEDS ORDERED: MORPHINE SULFATE 4 MG/ML SYRINGE IVP STA (06:24)
[2020-10-14] MEDS ORDERED: diphenhydrAMINE 50 MG/ML 1 ML VIAL IVP STA (06:24)
[2020-10-14] MEDS ORDERED: FAMOTIDINE 20 MG/2 ML VIAL IV STA (06:24)
[2020-10-14] MEDS ORDERED: AZITHROMYCIN 500 MG in SODIUM CHLORIDE 0.9% 250 ML IVPB STA (06:24)
[2020-10-14] MEDS ORDERED: MORPHINE SULFATE 4 MG/ML SYRINGE IVP PRN (06:24)
[2020-10-14] MEDS: SODIUM CHLORIDE 0.9% 1,000 ML IV SCH (07:10)
[2020-10-14] MEDS: IPRATROPIUM-ALBUTEROL 3 ML NEB INHALATION SCH ×4 (07:29→20:32)
[2020-10-14] MEDS: ENOXAPARIN 40 MG/0.4 ML SYRINGE SQ SCH (09:46)
[2020-10-14] MEDS: methylPREDNISolone SOD SUCCI 125 MG/2 ML VIAL IV SCH ×2 (12:16→19:52)
--- NOTE | 2020-10-14 16:15 | P.CNPUL ---
History of Present Illness Consult date: 10/14/20 Reason for consult: dyspnea History of present illness: Morbidly obese 54-year-old male patient with known history of COPD and obstructive sleep apnea was undergone a UPPP. The patient is a chronic smoker quit smoking 2016. The patient has not any medical insurance. He hasn't been able to use oxygen. He has been able to use his nebulizer machine due to lack of respiratory medications and coverage to obtain his medication. He comes into the emergency room because of worsening shortness of breath. He had significant edema in the lower extremity and the patient reported being quite tense and the like. No cellulitis. No previous history of DVT or pulmonary embolism. Chest x-ray showing atelectatic changes in lung bases. The patient checked negative for COVID19. The patient currently is on oxygen at 2 L. Pulse ox 96%. No stiven na. No palpitations and altered mentation. He is afebrile. Sinus rhythm. His previous echocardiogram at shown a preserved LV function with concentric LVH. Review of Systems Constitutional: Reports fatigue, Reports weight gain Eyes: denies as per HPI, denies blurred vision, denies bulging eye, denies decreased vision, denies diplopia, denies discharge, denies dry eye, denies irritation, denies itching, denies pain, denies photophobia, denies loss of peripheral vision, denies loss of vision, denies tunnel vision/blind spots Ears: deny: decreased hearing, ear discharge, earache, tinnitus Ears, nose, mouth and throat: Reports as per HPI Cardiovascular: Reports decreased exercise tolerance, Reports dyspnea on exertion, Reports leg edema Respiratory: Reports cough, Reports dyspnea, Reports sleep apnea, Reports snoring, Reports wheezing Gastrointestinal: Reports as per HPI Genitourinary: Reports as per HPI Musculoskeletal: Reports as per HPI, Reports muscle weakness Musculoskeletal: bilateral: ankle swelling, absent: ankle pain, ankle stiffness Integumentary: Reports as per HPI Neurological: Reports as per HPI Psychiatric: Reports as per HPI Endocrine: Reports as per HPI, Reports flushing Hematologic/Lymphatic: Reports as per HPI Allergic/Immunologic: Reports as per HPI Past Medical History Past Medical History: COPD, Musculoskeletal Disorder, Sleep Apnea/CPAP/BIPAP Additional Past Medical History / Comment(s): Morbid obesity, History of Any Multi-Drug Resistant Organisms: None Reported Past Surgical History: Appendectomy, Orthopedic Surgery, Tonsillectomy Additional Past Surgical History / Comment(s): bilateral knee arthroscopy, surgery for sleep apnea, carpal tunnel , uvula and adnoids removed for sleep apnea, Past Anesthesia/Blood Transfusion Reactions: No Reported Reaction Past Psychological History: No Psychological Hx Reported Smoking Status: Former smoker Past Alcohol Use History: None Reported Past Drug Use History: None Reported - Past Family History Mother History Unknown: Yes Family Medical History: Deep Vein Thrombosis (DVT) Medications and Allergies Home Medications Medication Instructions Recorded Confirmed Type Albuterol Nebulized [Ventolin 2.5 mg PO RT-BID PRN 06/10/19 10/14/20 History Nebulized] Allergies Allergy/AdvReac Type Severity Reaction Status Date / Time No Known Allergies Allergy Verified 10/14/20 06:37 Physical Exam Vitals: Vital Signs Temp Pulse Pulse Resp BP BP Pulse Ox 10/14/20 14:00 103 H 20 156/86 96 10/14/20 08:00 97.2 F L 105 H 22 127/79 97 10/14/20 07:47 100 10/14/20 07:32 97 10/14/20 07:00 103 H 19 160/99 94 L 10/14/20 05:43 102 H 22 134/75 93 L 10/14/20 05:09 26 H 10/14/20 05:06 97.1 F L 28 H 151/107 100 Intake and Output 10/14/20 10/14/20 10/14/20 06:59 14:59 22:59 Intake Total 2610 Output Total 2350 Balance 260 Intake: Intake, IV Titration 1210 Amount Azithromycin 500 mg In 250 Sodium Chloride 0.9% 250 ml @ 250 mls/hr IVPB ONCE STA Rx#:[id number] Sodium Chloride 0.9% 1, 910 000 ml @ 130 mls/hr IV . Q7H42M STA Rx#:[id number] cefTRIAXone 2 gm In 50 Sodium Chloride 0.9% 50 ml @ 100 mls/hr IVPB ONCE STA Rx#:[id number] Oral 1400 Output: Urine 2350 Other: Voiding Method Urinal Weight 181.437 kg Morbidly obese, comfortable not in distress HEAD: Normocephalic/atraumatic. EYES: Normal reaction of pupils, equal size. Conjunctiva pink, sclera white. NOSE: Clear with pink turbinates. THROAT: No erythema or exudates., And the patient is post UPPP NECK: No masses, no JVD, no thyroid enlargement, no adenopathy. CHEST: No chest wall deformity. Symmetrical expansion. LUNGS: Equal air entry with and expiratory wheezes, and rhonchi. CVS: Regular rate and rhythm, normal S1 and S2, no gallops, no murmurs, no rubs ABDOMEN: Soft, nontender. No hepatosplenomegaly, normal bowel sounds, no guarding or rigidity. EXTREMITIES: No clubbing, extensive edema, no cyanosis, 2+ pulses and upper and lower extremities. MUSCULOSKELETAL: Muscle strength and tone normal. SPINE: No scoliosis or deformity SKIN: No rashes CENTRAL NERVOUS SYSTEM: No focal deficits, tone is normal in all 4 extremities. PSYCHIATRIC: Alert and oriented -3. Appropriate affect. Intact judgment and insight. Results - Laboratory Findings CBC and BMP: 10/14/20 05:40 10/14/20 05:40 PT/INR, D-dimer PT 9.6 sec (9.0-12.0) 10/14/20 05:40 INR 0.9 (<1.2) 10/14/20 05:40 D-Dimer 0.77 mg/L FEU (<0.60) H 10/14/20 05:40 Abnormal lab findings: Abnormal Labs 10/14/20 10/14/20 10/14/20 05:40 05:40 05:40 Lymphocytes # 0.6 L D-Dimer 0.77 H Glucose 125 H C-Reactive Protein 63.9 H - Diagnostic Findings Chest x-ray: image reviewed Assessment and Plan Plan: #1 Acute dyspnea and hypoxic respiratory failure , secondary to COPD exacerbation. The patient has no evidence of any pneumonia. Atelectatic changes in the lung bases. COVID 19 evaluation came back negative. #2 Febrile illness secondary to above. #3 Morbid obesity. #4 Obstructive sleep apnea, with previous U PPP #5 Chronic obstructive pulmonary disease, not on inhalers in the outpatient setting. #6 History of chronic tobacco use. #7 lower extremity edema. #8 the patient has a breast lesion that do not to be a lipomatous lesion #9 adrenal adenoma Plan check Doppler of the lower extremity rule out DVT Lasix 40 mg IV push every 12 hours IV Solu Medrol 60 mg every 6 hours DuoNeb regimen [id number] Lovenox for DVT prophylaxis We'll continue to follow
[2020-10-14 20:01] LABS: Glucose,Whole Blood 226 mg/dL (75-99)
--- NOTE | 2020-10-14 22:17 | P.HPIM ---
History of Present Illness H&P Date: 10/14/20 Chief Complaint: short of breath History of presenting complaint: This is a 54-year-old patient of Dr. Hope. Has a history of COPD, obstructive sleep apnea had a UPPP. Osteoarthritis in multiple joints especially the knees. Patient is chronically short of breath. Presents with 2 days of worsening shortness of breath. Flushed. Increased appetite. No change in smell or taste. No dizziness. No diarrhea no headache. Patient has chronic neck pain. has a cough and congested. On expectorating. Wheezing Review of systems: GEN.: Tired EYES: None HEENT: None NECK: None RESPIRATORY: As above CARDIOVASCULAR: None GASTROINTESTINAL: None GENITOURINARY: None MUSCULOSKELETAL: Joint pains LYMPHATICS: None HEMATOLOGICAL: None PSYCHIATRY: Anxious NEUROLOGICAL: None Past medical history to include: COPD, osteoarthritis, obstructive sleep apnea with UPPP Social history: This is a brother. Smoked for about 14 years stopped in 2006. Currently not employed. Used to work at [employer]. Physical examination: VITAL SIGNS: 97.1, 102, 28, 1:30/75, 100% on 4 L GENERAL: BMI 62.6, sitting up in bed, short of breath at rest. EYES: Pupils equal. Conjunctiva normal. HEENT: External appearance of nose and ears normal, oral cavity grossly normal. NECK: JVD unable to assess masses not palpable. HEART: First and second heart sounds are normal; mild edema. LUNGS: Respiratory rate increased, not able to speak in full sentences, diminished breath sounds prolonged expiration some wheezing. ABDOMEN: Soft, nontender, liver spleen not palpable, no masses palpable. PSYCH: Alert and oriented x3; mood and affect anxiousl. NEUROLOGICAL: Cranial nerves grossly intact; no facial asymmetry, power and sensation grossly intact. MUSCULAR skeletal: Some prominence around the knees LYMPHATICS: No lymph nodes palpable in the axilla and neck INVESTIGATIONS, reviewed in the clinical context: White count 7.2 hemoglobin 14.2 platelets 270 decreased lymphocytes 0.6 D-dimer 0.77 potassium 4.2 creatinine 0.7 to CRP 63.9 proBNP 119 Coronavirus PCR-not detected EKG tracing personally reviewed by me-sinus rhythm with intraventricular block Chest x-ray film personally reviewed by me-portable, underpenetrated possible infiltrates Assessment: -Acute COPD exacerbation in an ex-smoker -Obstructive sleep apnea with the patient prior previously of had UPPP -Bilateral knee pain/arthralgia patient was [facility] -Morbid obesity BMI 62.6 Plan: Patient started on DuoNeb. DVT prophylaxis Lovenox. IV Solu-Medrol. In his steroids. Get x-ray of the knees. Consult OA. Care was discussed with the patient question answered. Past Medical History Past Medical History: Asthma, COPD, Musculoskeletal Disorder, Sleep Apnea/CPAP/BIPAP Additional Past Medical History / Comment(s): Morbid obesity, History of Any Multi-Drug Resistant Organisms: None Reported Past Surgical History: Appendectomy, Orthopedic Surgery, Tonsillectomy Additional Past Surgical History / Comment(s): bilateral knee arthroscopy, surgery for sleep apnea, carpal tunnel , uvula and adnoids removed for sleep apnea, Past Anesthesia/Blood Transfusion Reactions: No Reported Reaction Past Psychological History: No Psychological Hx Reported Smoking Status: Former smoker Past Alcohol Use History: None Reported Past Drug Use History: None Reported - Past Family History Mother History Unknown: Yes Family Medical History: Deep Vein Thrombosis (DVT) Medications and Allergies Home Medications Medication Instructions Recorded Confirmed Type Albuterol Nebulized [Ventolin 2.5 mg PO RT-BID PRN 06/10/19 10/14/20 History Nebulized] Allergies Allergy/AdvReac Type Severity Reaction Status Date / Time No Known Allergies Allergy Verified 10/14/20 06:37 Physical Exam Vitals: Vital Signs Temp Pulse Pulse Resp BP BP Pulse Ox 10/14/20 08:00 97.2 F L 105 H 22 127/79 97 10/14/20 07:47 100 10/14/20 07:32 97 10/14/20 07:00 103 H 19 160/99 94 L 10/14/20 05:43 102 H 22 134/75 93 L 10/14/20 05:09 26 H 10/14/20 05:06 97.1 F L 28 H 151/107 100 Intake and Output 10/13/20 10/14/20 10/14/20 22:59 06:59 14:59 Other: Weight 181.437 kg Results CBC & Chem 7: 10/14/20 05:40 10/14/20 05:40 Labs: Abnormal Lab Results - Last 24 Hours (Table) 10/14/20 10/14/20 10/14/20 Range/Units 05:40 05:40 05:40 Lymphocytes # 0.6 L (1.0-4.8) k/uL D-Dimer 0.77 H (<0.60) mg/L FEU Glucose 125 H (74-99) mg/dL C-Reactive Protein 63.9 H (<10.0) mg/L
[2020-10-14] MEDS: FUROSEMIDE 10 MG/ML 4 ML VIAL IV SCH (22:52)
--- NOTE | 2020-10-14 23:19 | XR ---
EXAMINATION TYPE: XR knee limited bilateral DATE OF EXAM: 10/14/2020 COMPARISON: Left knee 12/23/2018 HISTORY: Pain TECHNIQUE: 2 views each knee. FINDINGS: There is bilateral narrowing of the medial joint spaces with spurring of the femoral and tibial condy les. There is a mild bilateral genu varus. There is no evidence of fracture nor dislocation. There is no evidence of joint effusion. There is soft tissue swelling anterior to the left patella. There is subcutaneous edema around the left knee. IMPRESSION: Hypertrophic moderate osteoarthritis. Subcutaneous edema and soft tissue swelling around the left kne e. Osteoarthritis in the left knee similar to old exam.
[2020-10-14] MEDS: methylPREDNISolone SOD SUCCI 40 MG/ML 1 ML VIAL IV SCH (23:29)
[2020-10-15] MEDS: SODIUM CHLORIDE 0.9% 1,000 ML IV SCH (04:15)
[2020-10-15 07:54] LABS: Glucose,Whole Blood 150 mg/dL (75-99)
--- NOTE | 2020-10-15 08:36 | US ---
EXAMINATION TYPE: US venous doppler duplex LE BI DATE OF EXAM: 10/15/2020 7:32 AM COMPARISON: NONE CLINICAL HISTORY: DVT. Leg Swelling SIDE PERFORMED: Bilateral TECHNIQUE: The lower extremity deep venous system is examined utilizing real time linear array sonog lanette with graded compression, doppler sonography and color-flow sonography. VESSELS IMAGED: Popliteal Vein Proximal Calf Veins (* superficial vessels) Pt severely, morbidly obese (400+ lbs) with severe edema, very limited exam Right Leg: Negative for DVT, only mid fem V to proximal calf veins visualized Left Leg: Negative for DVT, only mid fem V to proximal calf veins visualized IMPRESSION: There is limitation to the exam. Deep venous thrombosis is not excluded within the lower extremities with exception of segments of the popliteal veins.
[2020-10-15] MEDS ORDERED: FAMOTIDINE 20 MG/2 ML VIAL IV SCH (09:00)
[2020-10-15] MEDS: methylPREDNISolone SOD SUCCI 40 MG/ML 1 ML VIAL IV SCH ×3 (09:12→23:56)
[2020-10-15] MEDS: ENOXAPARIN 40 MG/0.4 ML SYRINGE SQ SCH (09:12)
[2020-10-15] MEDS: FUROSEMIDE 10 MG/ML 4 ML VIAL IV SCH ×2 (09:12→20:56)
[2020-10-15 11:37] LABS: Glucose,Whole Blood 133 mg/dL (75-99)
[2020-10-15] MEDS: IPRATROPIUM-ALBUTEROL 3 ML NEB INHALATION SCH ×4 (11:54→19:58)
--- NOTE | 2020-10-15 13:22 | P.PN ---
Subjective Progress Note Date: 10/15/20 Morbidly obese 54-year-old male patient with known history of COPD and obstructive sleep apnea was undergone a UPPP. The patient is a chronic smoker quit smoking 2016. The patient has not any medical insurance. He hasn't been able to use oxygen. He has been able to use his nebulizer machine due to lack of respiratory medications and coverage to obtain his medication. He comes into the emergency room because of worsening shortness of breath. He had significant edema in the lower extremity and the patient reported being quite tense and the like. No cellulitis. No previous history of DVT or pulmonary embolism. Chest x-ray showing atelectatic changes in lung bases. The patient checked negative for COVID19. The patient currently is on oxygen at 2 L. Pulse ox 96%. No angina. No palpitations and altered mentation. He is afebrile. Sinus rhythm. His previous echocardiogram at shown a preserved LV function with concentric LVH. on 10/15/2020 I'm seeing the patient for a follow-up. He is urinating excessively the patient is having adequate diuresis for now as the patient has significant edema in lower extremities bilaterally. He is known to have COPD and obstructive sleep apnea. He came in for an acute COPD exacerbation. His shortness of breath compared to yesterday. He remains on IV Lasix. He remains on bronchodilators. He remains on systemic steroids. Objective - Vital Signs Vital signs: Vital Signs Temp 98.1 F 10/15/20 11:00 Pulse 99 10/15/20 11:00 Resp 22 10/15/20 11:00 BP 138/81 10/15/20 11:00 Pulse Ox 96 10/15/20 11:00 Intake & Output 10/14/20 10/15/20 10/15/20 18:59 06:59 18:59 Intake Total 3200 590 Output Total 2350 Balance 850 590 Weight 181.437 kg Intake: Intake, IV Titration 1210 Amount Azithromycin 500 mg In 250 Sodium Chloride 0.9% 250 ml @ 250 mls/hr IVPB ONCE STA Rx#:[id number] Sodium Chloride 0.9% 1, 910 000 ml @ 130 mls/hr IV . Q7H42M STA Rx#:[id number] cefTRIAXone 2 gm In 50 Sodium Chloride 0.9% 50 ml @ 100 mls/hr IVPB ONCE STA Rx#:[id number] Oral 1989 590 Output: Urine 2350 Other: Voiding Method Urinal Urinal Urinal # Voids 2 2 - Exam Morbidly obese, comfortable not in distress HEAD: Normocephalic/atraumatic. EYES: Normal reaction of pupils, equal size. Conjunctiva pink, sclera white. NOSE: Clear with pink turbinates. THROAT: No erythema or exudates., And the patient is post UPPP NECK: No masses, no JVD, no thyroid enlargement, no adenopathy. CHEST: No chest wall deformity. Symmetrical expansion. LUNGS: Equal air entry with and expiratory wheezes, and rhonchi. CVS: Regular rate and rhythm, normal S1 and S2, no gallops, no murmurs, no rubs ABDOMEN: Soft, nontender. No hepatosplenomegaly, normal bowel sounds, no guarding or rigidity. EXTREMITIES: No clubbing, extensive edema, no cyanosis, 2+ pulses and upper and lower extremities. MUSCULOSKELETAL: Muscle strength and tone normal. SPINE: No scoliosis or deformity SKIN: No rashes CENTRAL NERVOUS SYSTEM: No focal deficits, tone is normal in all 4 extremities. PSYCHIATRIC: Alert and oriented -3. Appropriate affect. Intact judgment and insight. - Labs CBC & Chem 7: 10/14/20 05:40 10/14/20 05:40 Labs: Abnormal Lab Results - Last 24 Hours (Table) 10/14/20 10/15/20 10/15/20 Range/Units 19:56 07:53 11:36 POC Glucose (mg/dL) 226 H 150 H 133 H (75-99) mg/dL Assessment and Plan Plan: #1 Acute dyspnea and hypoxic respiratory failure , secondary to COPD ex acerbation. The patient has no evidence of any pneumonia. Atelectatic changes in the lung bases. COVID 19 evaluation came back negative. #2 Febrile illness secondary to above. #3 Morbid obesity. #4 Obstructive sleep apnea, with previous U PPP #5 Chronic obstructive pulmonary disease, not on inhalers in the outpatient setting. #6 History of chronic tobacco use. #7 lower extremity edema.the patient has general. The patient clinically improving.The patient has some erythema in the lower extremities bilaterally. Cannot rule out cellulitis. #8 the patient has a breast lesion that do not to be a lipomatous lesion #9 adrenal adenoma Plan the patient is a negative fluid balance. Continue diuretics and check electrolytes Keflex 500 mg by mouth twice a day for possible cellulitis of the lower extremities. Doppler was negative. Lasix 40 mg IV push every 12 hours IV Solu Medrol 60 mg every 6 hours DuoNeb regimen [id number] Lovenox for DVT prophylaxis Clinically improving We'll continue to follow
[2020-10-15] MEDS ORDERED: CEPHALEXIN 500 MG CAP PO SCH (13:30)
--- NOTE | 2020-10-15 13:57 | P.CNOR ---
History of Present Illness - HPI Consult date: 10/15/20 History of present illness: This is a 54 year-old male who is admitted for shortness of breath. Orthopedics is consulted for bilateral knee pain. Patient states that his knee pain is chronic. Patient states that he has noticed swelling in the left knee. Patient states that he is currently being treated for bilateral lower extremity cellu litis and also taking lasix for edema. Patient denies any injury. Patient states that he has a history of bilateral knee arthroscopies for meniscal tears. Patient's past medical history is significant for COPD, osteoarthritis and sleep apnea. Review of Systems See HPI. Past Medical History Past Medical History: Asthma, COPD, Musculoskeletal Disorder, Sleep Apnea/CPAP/BIPAP Additional Past Medical History / Comment(s): Morbid obesity, History of Any Multi-Drug Resistant Organisms: None Reported Past Surgical History: Appendectomy, Orthopedic Surgery, Tonsillectomy Additional Past Surgical History / Comment(s): bilateral knee arthroscopy, surgery for sleep apnea, carpal tunnel , uvula and adnoids removed for sleep apnea, Past Anesthesia/Blood Transfusion Reactions: No Reported Reaction Past Psychological History: No Psychological Hx Reported Smoking Status: Former smoker Past Alcohol Use History: None Reported Past Drug Use History: None Reported - Past Family History Mother History Unknown: Yes Family Medical History: Deep Vein Thrombosis (DVT) Medications and Allergies Home Medications Medication Instructions Recorded Confirmed Type Albuterol Nebulized [Ventolin 2.5 mg PO RT-BID PRN 06/10/19 10/14/20 History Nebulized] Allergies Allergy/AdvReac Type Severity Reaction Status Date / Time No Known Allergies Allergy Verified 10/14/20 06:37 Physical Examination On exam there is bilateral lower extremity edema. Patient has near full extension of the right and left knees. Good flexion of bilateral knees. Multiple sores noted over bilateral lower extremities. Sensation intact bilaterally. Neurovascular status and circulatory status are intact. Results X-rays of bilateral knees dated 10/14/2020 show moderate arthritic changes. No fracture or dislocation. - Labs Labs: Abnormal Lab Results - Last 24 Hours (Table) 10/14/20 10/15/20 10/15/20 Range/Units 19:56 07:53 11:36 POC Glucose (mg/dL) 226 H 150 H 133 H (75-99) mg/dL H & H 10/14/20 Range/Units 05:40 Hgb 14.2 (13.0-17.5) gm/dL Hct 42.4 (39.0-53.0) % Coagulation 10/14/20 Range/Units 05:40 INR 0.9 (<1.2) Result Diagrams: 10/14/20 05:40 10/14/20 05:40 Assessment and Plan (1) Osteoarthritis of knees, bilateral Current Visit: Yes Status: Acute Code(s): M17.0 - BILATERAL PRIMARY OSTEOARTHRITIS OF KNEE SNOMED Code(s): 953826657343327 (2) Acute exacerbation of chronic obstructive airways disease Current Visit: Yes Status: Acute Code(s): J44.1 - CHRONIC OBSTRUCTIVE PULMONARY DISEASE W (ACUTE) EXACERBATION SNOMED Code(s): 318359921 (3) Bilateral cellulitis of lower leg Current Visit: Yes Status: Acute Code(s): L03.116 - CELLULITIS OF LEFT LOWER LIMB; L03.115 - CELLULITIS OF RIGHT LOWER LIMB SNOMED Code(s): 041459823 Plan: 1. X-rays are reviewed revealing moderate arthritic changes. 2. Recommend rest, ice, compression and elevation. 3. No surgical intervention planned. Patient may follow up as an outpatient.
[2020-10-15 16:58] LABS: Glucose,Whole Blood 135 mg/dL (75-99)
[2020-10-15 20:14] LABS: Glucose,Whole Blood 145 mg/dL (75-99)
--- NOTE | 2020-10-15 23:53 | P.PN ---
Progress Note - Text Progress Note Date: 10/15/20 Chief Complaint: short of breath History of presenting complaint: This is a 54-year-old patient of Dr. Hope. Has a history of COPD, obstructive sleep apnea had a UPPP. Osteoarthritis in multiple joints especially the knees. Patient is chronically short of breath. Presents with 2 days of worsening shortness of breath. Flushed. Increased appetite. No change in smell or taste. No dizziness. No diarrhea no headache. Patient has chronic neck pain. has a cough and congested. On expectorating. Wheezing Admitted with acute COPD exacerbation. Placed on bronchodilators and steroids. Today-laying in bed. Feeling better. Less cough. Less wheezing. Eating well. Review of systems: Was done for constitutional, cardiovascular, GI, pulmonary. relevant finding as above Active Medications Albuterol/Ipratropium (Ipratropium-Albuterol 3 Ml Neb) 3 ml INHALATION RT-QID [facility] Last Admin: 10/15/20 19:58 Dose: 3 ml Documented by: Enoxaparin Sodium (Enoxaparin 40 Mg/0.4 Ml Syringe) 40 mg SQ DAILY [facility] Last Admin: 10/15/20 09:12 Dose: 40 mg Documented by: Famotidine (Famotidine 20 Mg Tab) 20 mg PO DAILY [facility] Furosemide (Furosemide 10 Mg/Ml 4 Ml Vial) 40 mg IV Q12HR [facility] Last Admin: 10/15/20 20:56 Dose: 40 mg Documented by: Sodium Chloride (Saline 0.9%) 1,000 mls @ 20 mls/hr IV .Q24H [facility] Last Admin: 10/15/20 04:15 Dose: Not Given Documented by: Cefazolin Sodium 2 gm/ Sodium (Chloride) 50 mls @ 100 mls/hr IVPB Q8HR [facility] Last Admin: 10/15/20 15:58 Dose: 100 mls/hr Documented by: Methylprednisolone Sodium Succinate (Methylprednisolone Sod Succi 40 Mg/Ml 1 Ml Vial) 40 mg IV Q8HR [facility] Last Admin: 10/15/20 15:57 Dose: 40 mg Documented by: Morphine Sulfate (Morphine Sulfate 4 Mg/Ml Syringe) 4 mg IVP Q4HR PRN PRN Reason: Pain Physical examination: VITAL SIGNS: 97.8, 109, 22, 1 41 x 80, 94% on 4 L GENERAL: BMI 62.6, reclining in bed, breathing better EYES: Pupils equal. Conjunctiva normal. NECK: JVD unable to assess masses not palpable. HEART: First and second heart sounds are normal; mild edema. LUNGS: Respiratory rate increased, , improved air entry, decreased reason. ABDOMEN: Soft, nontender, liver spleen not palpable, no masses palpable. PSYCH: Alert and oriented x3; mood and affect anxiousl. . MUSCULAR skeletal: Some prominence around the knees INVESTIGATIONS, reviewed in the clinical context: White count 7.2 hemoglobin 14.2 platelets 270 decreased lymphocytes 0.6 D-dimer 0.77 potassium 4.2 creatinine 0.7 to CRP 63.9 proBNP 119 Coronavirus PCR-not detected EKG tracing personally reviewed by me-sinus rhythm with intraventricular block Chest x-ray film personally reviewed by me-portable, underpenetrated possible infiltrates Assessment: -Acute COPD exacerbation in an ex-smoker -Obstructive sleep apnea with the patient prior previously of had UPPP -Bilateral knee pain/arthralgia patient was previously [facility] -Morbid obesity BMI 62.6 Plan: Continue DuoNeb., IV Solu-Medrol. Inhaled steroids. Pulmonary added IV Lasix. Follow labs. We'll restrict fluid.
[2020-10-16] MEDS: SODIUM CHLORIDE 0.9% 1,000 ML IV SCH (05:44)
[2020-10-16 06:46] LABS: Basophils % (A) 0 %; Eosinophils % (A) 0 %; HCT 43.9 % (39.0-53.0); Hypochromasia Slight; Lymphocytes # (A) 1.3 k/uL (1.0-4.8); Lymphocytes % (A) 9 %; MCH 27.8 pg (25.0-35.0); Monocytes # (A) 0.8 k/uL (0-1.0); Monocytes % (A) 6 %; Neutrophils # (A) 11.3 k/uL (1.3-7.7); Neutrophils % (A) 83 %; Platelet Count 357 k/uL (150-450); RBC 5.05 m/uL (4.30-5.90); RDW 14.1 % (11.5-15.5); WBC 13.5 k/uL (3.8-10.6)
[2020-10-16 07:18] LABS: Glucose,Whole Blood 118 mg/dL (75-99)
[2020-10-16] MEDS: methylPREDNISolone SOD SUCCI 40 MG/ML 1 ML VIAL IV SCH ×2 (08:57→17:04)
[2020-10-16] MEDS: FUROSEMIDE 10 MG/ML 4 ML VIAL IV SCH (08:57)
[2020-10-16] MEDS: ENOXAPARIN 40 MG/0.4 ML SYRINGE SQ SCH (08:58)
[2020-10-16] MEDS ORDERED: BACITRACIN ZINC 500 UNIT/GM OINT 28.4 GM TUBE TOPICAL SCH (09:00)
[2020-10-16] MEDS ORDERED: FAMOTIDINE 20 MG TAB PO SCH (09:00)
[2020-10-16] MEDS: IPRATROPIUM-ALBUTEROL 3 ML NEB INHALATION SCH ×3 (09:19→16:24)
[2020-10-16 11:11] LABS: Glucose,Whole Blood 123 mg/dL (75-99)
[2020-10-16 11:30] LABS: African American GFR (CKD) 99.8 (60.0-200.0); Albumin 4.4 g/dL (3.80-4.90); Albumin/Globulin Ratio 2.44 (1.60-3.17); Anion Gap 9.4 mmol/L (4.00-12.00); Calcium 9.5 mg/dL (8.7-10.3); Carbon Dioxide 35.6 mmol/L (21.6-31.8); Globulin 1.8 g/dL (1.6-3.3); Non-African American GFR(CKD) 86.2 (60.0-200.0); Potassium 4.7 mmol/L (3.5-5.5); Total Bilirubin 0.5 mg/dL (0.2-1.2); Total Protein 6.2 g/dL (6.2-8.2)
[2020-10-16 12:20] VITALS: BP 121/59; RESP 20; TEMP 98.1
[2020-10-16 16:28] VITALS: PULSE 95
--- NOTE | 2020-10-17 19:25 | P.DS ---
Providers Date of admission: 10/14/20 06:24 Expected date of discharge: 10/16/20 Attending physician: Kiran Quiroz Consults: 10/14/20 06:24 Consult Physician Routine Consulting Provider: Charisma Ragland Consult Reason/Comments: copd Do you want consulting provider notified?: Yes 10/14/20 22:18 Consult Physician Routine Consulting Provider: Orlin Flores Consult Reason/Comments: B/L knee pain Do you want consulting provider notified?: Yes, Notify in am Primary care physician: [facility] Course: Chief Complaint: short of breath History of presenting complaint: This is a 54-year-old patient of Dr. Hope. Has a history of COPD, obstructive sleep apnea had a UPPP. Osteoarthritis in multiple joints especially the knees. Patient is chronically short of breath. Presents with 2 days of worsening shortness of breath. Flushed. Increased appetite. No change in smell or taste. No dizziness. No diarrhea no headache. Patient has chronic neck pain. has a cough and congested. On expectorating. Wheezing Admitted with acute COPD exacerbation. Placed on bronchodilators and steroids. Mild cellulitis lower extremity. Also has osteoarthritis in the knees. Seen by Dr. Flores. For conservative management. Today-doing well. Breathing improved. Told to use Kobe wrap. Consultation: Dr. Ragland from pulmonary Dr. Flores from orthopedic surgery Physical examination: VITAL SIGNS: 98.1, 95, 20, 121/59, 94% room air GENERAL: Sitting up, more comfortable EYES: Pupils equal. Conjunctiva normal. NECK: JVD unable to assess masses not palpable. HEART: First and second heart sounds are normal; mild edema. LUNGS: Respiratory rate increased, , improved air entry, ABDOMEN: Soft, nontender, liver spleen not palpable, no masses palpable. PSYCH: Alert and oriented x3; mood and affect anxiousl. . MUSCULAR skeletal: Some prominence around the knees INVESTIGATIONS, reviewed in the clinical context: October 16: White count 13.5 hemoglobin 14 potassium 4.7 creatinine 1.0 White count 7.2 hemoglobin 14.2 platelets 270 decreased lymphocytes 0.6 D-dimer 0.77 potassium 4.2 creatinine 0.7 to CRP 63.9 proBNP 119 Coronavirus PCR-not detected EKG tracing personally reviewed by me-sinus rhythm with intraventricular block Chest x-ray film personally reviewed by me-portable, underpenetrated possible infiltrates Venous Doppler ultrasound-negative for DVT Assessment: -Acute COPD exacerbation in an ex-smoker -Obstructive sleep apnea with the patient-previously had UPPP -Bilateral knee pain/arthralgia patient was previously [facility] -Morbid obesity BMI 62.6 -Mild cellulitis of bilateral lower extremity Disposition: Home Patient Condition at Discharge: Stable Plan - Discharge Summary New Discharge Prescriptions: New Bacitracin Zinc Oint 1 applic TOPICAL BID applic Famotidine [Pepcid] 20 mg PO BID #60 tab predniSONE 10 mg PO DAILY #30 tab Albuterol Sulfate [Ventolin HFA] 1 - 2 puff INHALATION Q6H PRN #1 inhaler PRN Reason: Wheezing Changed Albuterol Nebulized [Ventolin Nebulized] 2.5 mg PO Q6H PRN #60 neb PRN Reason: Shortness Of Breath Discharge Medication List Albuterol Nebulized [Ventolin Nebulized] 2.5 mg PO Q6H PRN #60 neb 10/16/20 [Rx] Albuterol Sulfate [Ventolin HFA] 1 - 2 puff INHALATION Q6H PRN #1 inhaler 10/16/20 [Rx] Bacitracin Zinc Oint 1 applic TOPICAL BID applic 10/16/20 [Rx] Famotidine [Pepcid] 20 mg PO BID #60 tab 10/16/20 [Rx] predniSONE 10 mg PO DAILY #30 tab 10/16/20 [Rx] Follow up Appointment(s)/Referral(s): Alfredo Hope DO [Primary Care Provider] - 10/24/20 11:20 am Orlin Flores DO [Doctor of Osteopathic Medicine] - 10/21/20 3:00 pm Charisma Ragland MD [STAFF PHYSICIAN] - 11/04/20 9:15 am Patient Instructions/Handouts: Famotidine (By mouth), Albuterol (By breathing), Prednisone (By mouth), Osteoarthritis (DC), COPD (Chronic Obstructive Pulmonary Disease) (DC), Fall Prevention (DC) Activity/Diet/Wound Care/Special Instructions: Sent home with Kobe wrap and some Kerlix. Discharge Disposition: HOME SELF-CARE
== END 2020-10-16 17:35 | disposition home or self-care (01) | DRG 190 ==
LOC: EC 04:57 → 6NMEDSUR 06:24
PROVIDERS: ADMIT Hospitalist; ATTEND Hospitalist
DX: J44.1 Chronic obstructive pulmonary disease with (acute) exacerbation (principal); J96.01 Acute respiratory failure with hypoxia; Z68.44 Body mass index [BMI] 60.0-69.9, adult; R65.10 Systemic inflammatory response syndrome (SIRS) of non-infectious origin without acute organ dysfunction; L03.115 Cellulitis of right lower limb; L03.116 Cellulitis of left lower limb; E66.01 Morbid (severe) obesity due to excess calories; Z20.828 Contact with and (suspected) exposure to other viral communicable diseases; G47.33 Obstructive sleep apnea (adult) (pediatric); N64.9 Disorder of breast, unspecified; M17.0 Bilateral primary osteoarthritis of knee; D35.00 Benign neoplasm of unspecified adrenal gland; F41.9 Anxiety disorder, unspecified; G89.29 Other chronic pain; M54.2 Cervicalgia; Z79.51 Long term (current) use of inhaled steroids; Z79.899 Other long term (current) drug therapy; Z87.891 Personal history of nicotine dependence; Z90.89 Acquired absence of other organs; Z90.49 Acquired absence of other specified parts of digestive tract; Z98.890 Other specified postprocedural states; Z87.19 Personal history of other diseases of the digestive system; Z83.2 Family history of diseases of the blood and blood-forming organs and certain disorders involving the immune mechanism
CPT/HCPCS: 36415; 71045; 80053; 83615; 83735; 83880; 84145; 84484; 85025; 85379; 85610; 85730; 86140; 87635; 93005; 93970; 94640; 96361; 96365; 96366; 96367; 96372; 96375; 96376; 99285

== ENCOUNTER → 2020-12-25 | Outpatient (CLI) | payer OTHER ==
[2020-12-25 15:00] VITALS: BP 109/53; PULSE 75; RESP 22; TEMP 98.1; BMI 67.8
--- NOTE | 2020-12-25 15:33 | P.HPBAR ---
Bariatric H&P - History & Physicial H&P Date: 12/25/20 History & Physicial: Visit/CC: initial visit Patient initial contact: Initial weight: Initial weight in pounds: Height: 5 ft 5 in Initial BMI: Last weight: Current weight: 185.066 kg Current weight in pounds: 408.00 Current BMI: 67.8 [place] body weight (based on NIH guidelines): 61.689 kg Excess body weight loss: The patient is a 55 year-old M who presents for Bariatric Assessment. DATE OF SERVICE: 12/25/2020 REASON FOR CONSULTATION: Initial bariatric evaluation HISTORY OF PRESENT ILLNESS: Alfredo Rosas is a 55-year-old male who comes with lifelong morbid obesity. He comes in for a once in a lifetime procedure. He is looking into weight loss. He has been off work for 7 months. His highest weight is 425 pounds from November 14, 2020. He is in a wheel chair. He has swelling of both feet. He has not tried any weight loss plans or options. He eats deep dish pizza, chadian foods, and 2 liter pepsi twice daily. While in the hospital he has tried calorie restriction. He has changed his diet to eat more vegetables. He has never tried to lose weight in the past. His aunt had trouble with weight loss surgery. All family members are obese including mother and brothers. He reports sharp pain at the left upper quadrant. He reports loose stools for over 1 year. He has not had a colonscopy. He denies any easy bruising or bleeding. He sees Dr. Ragland for pulmonary. He had an appendectomy age 11 to 12. He denies personal or family history of esophageal, colon or stomach cancers. He reports cancer with metastases in both grandparents of unknown origin. He denies troubles with swallowing. He had a UPPP surgery for sleep apnea. He denies gallbladder problem. He has lower back pain, hips, knee pain and ankle pains. He has arthritis throughout. He denies past heart attack or diabetes. He has trouble breathing. He denies past DVT. He hast past smoking. He presents to me for the first time in consultation for weight loss surgery. At height of 5 feet 5 inches, her ideal body weight is 149 pounds. His highest weight is 425 pounds, BMI 70.9. He comes in 407 pounds. His body mass index is 67.9. He is 258 pounds overweight. PAST MEDICAL HISTORY: 1. Morbid obesity due to excess calories 2. Body mass index of 70.9, initial 3. Osteoarthritis of the knees. 4. Osteoarthritis of the lower back. 5. Osteoarthritis of the hips 6. Osteoarthritis of the ankle 7. Obstructive sleep apnea 8. Chronic obstructive pulmonary disease 9. Congestive heart failure 10. Bilateral lower extremity cellulitis PAST SURGICAL HISTORY: 1. Appendectomy 2. Uvulopalatopharyngoplasty 3. Tonsillectomy 4. Bilateral knee arthroscopy 5. Carpal tunnel HOME MEDICATIONS: Home Medications Medication Instructions Recorded Confirmed Furosemide [Lasix] 40 mg PO BID 12/25/20 12/25/20 Spironolactone [Aldactone] 25 mg PO DAILY 12/25/20 12/25/20 Tiotropium [place] [Spiriva] 1 cap INHALATION DAILY 12/25/20 12/25/20 Ergocalciferol [Vitamin D2 (1250 50,000 unit PO WEEKLY 01/09/21 01/09/21 Mcg = 88783 Iu)] Iron 64 mg PO DAILY 01/09/21 01/09/21 Vitamin A 10,000 unit PO DAILY 01/09/21 01/09/21 Zinc 50 mg PO DAILY 01/09/21 01/09/21 Previous Rx's Medication Instructions Recorded Albuterol Nebulized [Ventolin 2.5 mg PO Q6H PRN #60 neb 10/16/20 Nebulized] Albuterol Sulfate [Ventolin HFA] 1 - 2 puff INHALATION Q6H PRN #1 10/16/20 inhaler ALLERGIES: Allergies Allergy/AdvReac Type Severity Reaction Status Date / Time No Known Allergies Allergy Verified 12/25/20 15:00 SOCIAL HISTORY: Past tobacco use. FAMILY HISTORY: No family history of ulcerative colitis disease or Crohn's disease. Family history of morbid obesity. No lupus in the family. No reports of colon, stomach or esophageal cancer. He reports cancer with metastases in both grandparents of unknown origin. REVIEW OF ORGAN SYSTEMS: CONSTITUTIONAL: At height of 5 feet 5 inches, her ideal body weight is 149 pounds. His highest weight is 425 pounds, BMI 70.9. He comes in 407 pounds. His body mass index is 67.9. He is 258 pounds overweight. HEENT: Denies any active troubles with vision or hearing. Denies troubles with swallowing. ENDOCRINE: Denies diabetes. No hypothyroidism. CARDIOVASCULAR: Past reports of palpitations or heart attacks or chest pain. Has hypertensive heart disease. RESPIRATORY: Has daytime somnolence. Has asthma. Has chronic obstructive pulmonary disease. GASTROINTESTINAL: Denies any bright red blood per rectum. Has diarrhea. GENITOURINARY: Denies active bladder urgency. No recent blood in urine MUSCULOSKELETAL: Has lower back pain and joint pain. Has osteoarthritis of the knees. History of bilateral lower extremity edema. NEURO: No headaches. No seizure disorders. PSYCH: Denies depression. No suicidal ideation. RHEUMATOLOGIC: No lupus. No rheumatoid arthritis. HEMATOLOGIC: Denies any abnormal bleeding or bruising. SKIN: No rash. No skin cancer. PHYSICAL EXAM: VITAL SIGNS: Height 5 foot 5 inches, weight 407 pounds. BMI 67.9 GENERAL: Well-developed in no acute distress. HEENT: No scleral icterus. Extraocular movements grossly intact. Hears conversational speech. No nasal drainage. NECK: Supple without lymphadenopathy. CHEST: Nonlabored respirations with equal bilateral excursions. CARDIOVASCULAR: Regular rate and regular rhythm. Distal 2+ pulses. ABDOMEN: Obese, soft, nontender, nondistended. MUSCULOSKELETAL: No clubbing, cyanosis. Pitting edema at least 3+ lower extremities. NEURO: No focal or lateralizing signs. Cranial nerves 2 through 12 grossly within normal limits. PSYCH: Appropriate affect. Alert and oriented to person, place and time. SKIN: Good skin turgor. Well perfused. ASSESSMENT: 1. Morbid obesity due to excess calories 2. Body mass index of 70.9, initial 3. Osteoarthritis of the knees. 4. Osteoarthritis of the lower back. 5. Osteoarthritis of the hips 6. Osteoarthritis of the ankle 7. Obstructive sleep apnea 8. Chronic obstructive pulmonary disease 9. Congestive heart failure 10. Bilateral lower extremity cellulitis 11. Change in bowel movements PLAN: 1. Surgical options including a band, gastric bypass, sleeve gastrectomy were described in detail. Alternatives such as gastric balloon including duodenal switch were described. 2. The [place] bariatric surgical collaborative data and outcomes calculator were described with surgical options. 3. Recommend a bariatric metabolic panel to evaluate for micro- including macronutrient deficiencies. 4. For history of daytime somnolence and sleep apnea, recommend pulmonary clearance. 5. Dietary surveillance and counseling was reviewed. Increased protein intake over 65 grams daily advised. 6. Will need cardiac risk assessment. 7. Recommend medical risk assessment. 8. Psych assessment per insurance guidelines. 9. Recommend upper endoscopy for gastritis. 10. Recommend 12-lead EKG. 11. Recommend colonoscopy for change in bowel habits. 12. He is high risk with pre-existing severe COPD for upper and lower endoscopy. Thank you for this consultation. Past Medical History Past Medical History: Asthma, COPD, Musculoskeletal Disorder, Sleep Apnea/CPAP/BIPAP Additional Past Medical History / Comment(s): Morbid obesity, History of Any Multi-Drug Resistant Organisms: None Reported Past Surgical History: Appendectomy, Orthopedic Surgery, Tonsillectomy Additional Past Surgical History / Comment(s): bilateral knee arthroscopy, surgery for sleep apnea, carpal tunnel , uvula and adnoids removed for sleep apnea, Past Anesthesia/Blood Transfusion Reactions: No Reported Reaction Past Psychological History: No Psychological Hx Reported Smoking Status: Former smoker Past Alcohol Use History: None Reported Past Drug Use History: None Reported - Past Family History Mother History Unknown: Yes Family Medical History: Deep Vein Thrombosis (DVT) Surgical - Exam Vital Signs Temp Pulse Resp BP Pulse Ox 98.1 F 75 22 109/53 98 12/25/20 14:52 12/25/20 14:52 12/25/20 14:52 12/25/20 14:52 12/25/20 14:52 Results - Labs 12/25/20 16:22 12/25/20 16:22 Bariatric Checklist Checklist: Plan: Checklist: EGD: 1. Hiatal hernia: 2. H. Pylori: HgbA1c: Vitamin D: Smoking: Former smoker Primary care physician referral: Dr. Hope Psychiatry clearance: Cardiology clearance: Sleep study: Diet journal: VTE risk score: VTE risk level: Rehab needs at discharge:
[2020-12-25 17:13] LABS: HCT 44.1 % (39.0-53.0); HGB 14.4 gm/dL (13.0-17.5); MCH 28.2 pg (25.0-35.0); MCHC 32.7 g/dL (31.0-37.0); MCV 86.1 fL (80.0-100.0); Platelet Count 270 k/uL (150-450); RBC 5.12 m/uL (4.30-5.90); RDW 14.8 % (11.5-15.5); WBC 10.2 k/uL (3.8-10.6)
[2020-12-26 00:40] LABS: INR 0.89 (0.90-1.11); Partial Thromboplastin Time 27.1 sec (23.5-31.0); Prothrombin Time 9.8 sec (9.9-11.9)
[2020-12-26 00:56] LABS: % Iron Saturation 10.06 (15.00-50.00); African American GFR (CKD) 124.9 (60.0-200.0); Albumin 4.5 g/dL (3.80-4.90); Albumin/Globulin Ratio 2.5 (1.60-3.17); Anion Gap 10.6 mmol/L (4.00-12.00); BUN/Creat Ratio 28.57 Ratio (12.00-20.00); Carbon Dioxide 29.4 mmol/L (21.6-31.8); Chol/HDL Ratio 3.89; Globulin 1.8 g/dL (1.6-3.3); LDL Cholesterol,Calculated 62.6 mg/dL (0.0-131.0); Magnesium 1.9 mg/dL (1.5-2.4); Non-African American GFR(CKD) 107.7 (60.0-200.0); Potassium 4.1 mmol/L (3.5-5.5); Total Bilirubin 0.4 mg/dL (0.3-1.2); Total Protein 6.3 g/dL (6.2-8.2); VLDL Calculation 47.4 mg/dL (5.00-40.00)
[2020-12-26 01:07] LABS: Ferritin 124.2 ng/mL (22.0-322.0)
[2020-12-26 01:25] LABS: Folate, Serum 12.5 ng/mL
[2020-12-26 01:40] LABS: Hemoglobin A1C 5.4 % (4.0-6.0)
[2020-12-26 10:14] LABS: Zinc, Serum 52 ug/dL (60-130)
[2020-12-27 07:06] LABS: Vitamin A 34 ug/dL (38-106)
[2020-12-27 13:47] LABS: Vit B1(Thiamine) 90 ug/L (38-122)
[2020-12-29 18:04] LABS: Selenium 102 mcg/L (63-160)
[2020-12-30 09:26] LABS: Anabasine Urine <2.0 ng/mL (<2.0)
== END | disposition home or self-care (01) ==
LOC: BARWHC3 14:36
PROVIDERS: ATTEND Surgery Plastic and Reconstructive Surgery
DX: E66.01 Morbid (severe) obesity due to excess calories (principal); Z68.45 Body mass index [BMI] 70 or greater, adult; M17.0 Bilateral primary osteoarthritis of knee; M16.0 Bilateral primary osteoarthritis of hip; M19.09 Primary osteoarthritis, other specified site; M19.079 Primary osteoarthritis, unspecified ankle and foot; G47.33 Obstructive sleep apnea (adult) (pediatric); J44.9 Chronic obstructive pulmonary disease, unspecified; I50.9 Heart failure, unspecified; L03.116 Cellulitis of left lower limb; L03.115 Cellulitis of right lower limb
CPT/HCPCS: 84255; 84134; 84425; 80061; 80053; 82607; 82728; 82525; 82746; 83540; 83550; 83735; 84100; 84443; 84590; 84630; 85027; 85610; 85730; 82306; 83970; 83036; 36415; G0480; G0463; 80323; 99211

== ENCOUNTER 2021-02-03 12:44 | Emergency (ER) | payer OTHER ==
[2021-02-03 14:36] VITALS: TEMP 98.2
--- NOTE | 2021-02-03 14:44 | ED ---
General Adult HPI - General Source: patient, RN notes reviewed Mode of arrival: wheelchair Limitations: no limitations <Ben Gallego - Last Filed: 02/03/21 14:41> <Sj Gaines - Last Filed: 02/03/21 17:22> - General Chief complaint: Extremity Problem,Nontraumatic Stated complaint: Leg pain (both) Time Seen by Provider: 02/03/21 14:41 - History of Present Illness Initial comments: Patient is a 54-year-old male presents emergency room with bilateral lower extremity swelling or erythema and pain. He notes that progressively over the last several months his legs have become more swollen states his knees are 5 times as big as it should be. He notes he was given antibiotics and topical ointment for bilateral lower extremities but it did not improve anything. (Ben Gallego) - Related Data Home Medications Medication Instructions Recorded Confirmed Furosemide [Lasix] 40 mg PO BID 12/25/20 12/25/20 Spironolactone [Aldactone] 25 mg PO DAILY 12/25/20 12/25/20 Tiotropium [place] [Spiriva] 1 cap INHALATION DAILY 12/25/20 12/25/20 Ergocalciferol [Vitamin D2 (1250 50,000 unit PO WEEKLY 01/09/21 01/09/21 Mcg = 13737 Iu)] Iron 64 mg PO DAILY 01/09/21 01/09/21 Vitamin A 10,000 unit PO DAILY 01/09/21 01/09/21 Zinc 50 mg PO DAILY 01/09/21 01/09/21 Previous Rx's Medication Instructions Recorded Albuterol Nebulized [Ventolin 2.5 mg PO Q6H PRN #60 neb 10/16/20 Nebulized] Albuterol Sulfate [Ventolin HFA] 1 - 2 puff INHALATION Q6H PRN #1 10/16/20 inhaler Allergies Allergy/AdvReac Type Severity Reaction Status Date / Time No Known Allergies Allergy Verified 02/03/21 14:36 Review of Systems ROS Other: All systems not noted in ROS Statement are negative. <Ben Gallego - Last Filed: 02/03/21 14:41> ROS Other: All systems not noted in ROS Statement are negative. <Sj Gaines - Last Filed: 02/03/21 17:22> ROS Statement: Those systems with pertinent positive or pertinent negative responses have been documented in the HPI. Past Medical History Past Medical History: Asthma, COPD, Musculoskeletal Disorder, Sleep Apnea/CPAP/BIPAP Additional Past Medical History / Comment(s): Morbid obesity, History of Any Multi-Drug Resistant Organisms: None Reported Past Surgical History: Appendectomy, Orthopedic Surgery, Tonsillectomy Additional Past Surgical History / Comment(s): bilateral knee arthroscopy, surgery for sleep apnea, carpal tunnel , uvula and adnoids removed for sleep apnea, Past Anesthesia/Blood Transfusion Reactions: No Reported Reaction Past Psychological History: No Psychological Hx Reported Smoking Status: Former smoker Past Alcohol Use History: None Reported Past Drug Use History: None Reported - Past Family History Mother History Unknown: Yes Family Medical History: Deep Vein Thrombosis (DVT) <Ben Gallego - Last Filed: 02/03/21 14:41> General Exam Limitations: no limitations, physical limitation General appearance: alert, in no apparent distress, obese Head exam: Present: atraumatic, normocephalic, normal inspection Eye exam: Present: normal appearance, PERRL, EOMI. Absent: scleral icterus, conjunctival injection, periorbital swelling Neck exam: Present: normal inspection. Absent: tenderness, meningismus, lymphadenopathy Respiratory exam: Present: normal lung sounds bilaterally. Absent: respiratory distress, wheezes, rales, rhonchi, stridor Cardiovascular Exam: Present: regular rate, normal rhythm, normal heart sounds. Absent: systolic murmur, diastolic murmur, rubs, gallop, clicks GI/Abdominal exam: Present: soft, normal bowel sounds. Absent: distended, tenderness, guarding, rebound, rigid Extremities exam: Present: normal capillary refill. Absent: normal inspection (Bilateral lower extremities swollen, erythematous, mildly tender.), full ROM, tenderness, pedal edema, joint swelling, calf tenderness Neurological exam: Present: alert, oriented X3, CN II-XII intact Psychiatric exam: Present: normal affect, normal mood Skin exam: Present: warm, dry, intact, normal color. Absent: rash <Ben Gallego - Last Filed: 02/03/21 14:41> Course Vital Signs 02/03/21 02/03/21 14:32 16:01 Temperature 98.2 F Pulse Rate 100 98 Respiratory 18 20 Rate Blood Pressure 170/69 148/63 O2 Sat by Pulse 98 96 Oximetry Medical Decision Making - Lab Data Result diagrams: 02/03/21 15:44 02/03/21 15:44 <Sj Gaines - Last Filed: 02/03/21 17:22> - Lab Data Lab Results 02/03/21 02/03/21 02/03/21 Range/Units 15:44 15:44 15:44 WBC 9.5 (3.8-10.6) k/uL RBC 4.97 (4.30-5.90) m/uL Hgb 13.9 (13.0-17.5) gm/dL Hct 41.3 (39.0-53.0) % MCV 83.1 (80.0-100.0) fL MCH 27.9 (25.0-35.0) pg MCHC 33.5 (31.0-37.0) g/dL RDW 14.8 (11.5-15.5) % Plt Count 283 (150-450) k/uL MPV 7.3 Neutrophils % 79 % Lymphocytes % 13 % Monocytes % 5 % Eosinophils % 2 % Basophils % 0 % Neutrophils # 7.5 (1.3-7.7) k/uL Lymphocytes # 1.2 (1.0-4.8) k/uL Monocytes # 0.5 (0-1.0) k/uL Eosinophils # 0.2 (0-0.7) k/uL Basophils # 0.0 (0-0.2) k/uL PT 9.7 (9.0-12.0) sec INR 0.9 (<1.2) APTT 24.9 (22.0-30.0) sec D-Dimer 0.48 (<0.60) mg/L FEU Sodium 137 (137-145) mmol/L Potassium 4.4 (3.5-5.1) mmol/L Chloride 98 (98-107) mmol/L Carbon Dioxide 32 H (22-30) mmol/L Anion Gap 7 mmol/L BUN 15 (9-20) mg/dL Creatinine 0.71 (0.66-1.25) mg/dL Est GFR (CKD-EPI)AfAm >90 (>60 ml/min/1.73 sqM) Est GFR (CKD-EPI)NonAf >90 (>60 ml/min/1.73 sqM) Glucose 106 H (74-99) mg/dL Plasma Lactic Acid Dionicio (0.7-2.0) mmol/L Calcium 9.5 (8.4-10.2) mg/dL Total Bilirubin 0.6 (0.2-1.3) mg/dL AST 28 (17-59) U/L ALT 24 (4-49) U/L Alkaline Phosphatase 109 (38-126) U/L Troponin I (0.000-0.034) ng/mL NT-Pro-B Natriuret Pep pg/mL Total Protein 6.9 (6.3-8.2) g/dL Albumin 4.2 (3.5-5.0) g/dL 02/03/21 02/03/21 02/03/21 Range/Units 15:44 15:44 15:44 WBC (3.8-10.6) k/uL RBC (4.30-5.90) m/uL Hgb (13.0-17.5) gm/dL Hct (39.0-53.0) % MCV (80.0-100.0) fL MCH (25.0-35.0) pg MCHC (31.0-37.0) g/dL RDW (11.5-15.5) % Plt Count (150-450) k/uL MPV Neutrophils % % Lymphocytes % % Monocytes % % Eosinophils % % Basophils % % Neutrophils # (1.3-7.7) k/uL Lymphocytes # (1.0-4.8) k/uL Monocytes # (0-1.0) k/uL Eosinophils # (0-0.7) k/uL Basophils # (0-0.2) k/uL PT (9.0-12.0) sec INR (<1.2) APTT (22.0-30.0) sec D-Dimer (<0.60) mg/L FEU Sodium (137-145) mmol/L Potassium (3.5-5.1) mmol/L Chloride (98-107) mmol/L Carbon Dioxide (22-30) mmol/L Anion Gap mmol/L BUN (9-20) mg/dL Creatinine (0.66-1.25) mg/dL Est GFR (CKD-EPI)AfAm (>60 ml/min/1.73 sqM) Est GFR (CKD-EPI)NonAf (>60 ml/min/1.73 sqM) Glucose (74-99) mg/dL Plasma Lactic Acid Dionicio 1.0 (0.7-2.0) mmol/L Calcium (8.4-10.2) mg/dL Total Bilirubin (0.2-1.3) mg/dL AST (17-59) U/L ALT (4-49) U/L Alkaline Phosphatase (38-126) U/L Troponin I <0.012 (0.000-0.034) ng/mL NT-Pro-B Natriuret Pep 55 pg/mL Total Protein (6.3-8.2) g/dL Albumin (3.5-5.0) g/dL Disposition <Ben Gallego - Last Filed: 02/03/21 14:41> Is patient prescribed a controlled substance at d/c from ED?: No Time of Disposition: 17:21 <Sj Gaines - Last Filed: 02/03/21 17:22> Clinical Impression: Venous stasis of both lower extremities Disposition: HOME SELF-CARE Condition: Fair Additional Instructions: Follow-up with the primary care doctor this week and vascular for chronic venous stasis Referrals: Alfredo Hope DO [Primary Care Provider] - 1-2 days Casey Stock DO [Doctor of Osteopathic Medicine] - 1-2 days
[2021-02-03 15:56] LABS: Basophils % (A) 0 %; Eosinophils # (A) 0.2 k/uL (0-0.7); Eosinophils % (A) 2 %; HCT 41.3 % (39.0-53.0); HGB 13.9 gm/dL (13.0-17.5); Lymphocytes # (A) 1.2 k/uL (1.0-4.8); Lymphocytes % (A) 13 %; MCH 27.9 pg (25.0-35.0); MCHC 33.5 g/dL (31.0-37.0); MCV 83.1 fL (80.0-100.0); Mean Platelet Volume 7.3; Monocytes # (A) 0.5 k/uL (0-1.0); Monocytes % (A) 5 %; Neutrophils # (A) 7.5 k/uL (1.3-7.7); Neutrophils % (A) 79 %; Platelet Count 283 k/uL (150-450); RBC 4.97 m/uL (4.30-5.90); RDW 14.8 % (11.5-15.5); WBC 9.5 k/uL (3.8-10.6)
[2021-02-03 16:06] LABS: ALT 24 U/L (4-49); AST 28 U/L (17-59); African American GFR (CKD) >90 (>60 ml/min/1.73 sqM); Albumin 4.2 g/dL (3.5-5.0); Alkaline Phosphatase 109 U/L (38-126); Anion Gap 7 mmol/L; Blood Urea Nitrogen 15 mg/dL (9-20); Calcium 9.5 mg/dL (8.4-10.2); Carbon Dioxide 32 mmol/L (22-30); Chloride 98 mmol/L (98-107); Glucose 106 mg/dL (74-99); Non-African American GFR(CKD) >90 (>60 ml/min/1.73 sqM); Potassium 4.4 mmol/L (3.5-5.1); Sodium 137 mmol/L (137-145); Total Bilirubin 0.6 mg/dL (0.2-1.3); Total Protein 6.9 g/dL (6.3-8.2)
[2021-02-03 16:14] LABS: D-Dimer 0.48 mg/L FEU (<0.60); INR 0.9 (<1.2); Partial Thromboplastin Time 24.9 sec (22.0-30.0); Prothrombin Time 9.7 sec (9.0-12.0)
--- NOTE | 2021-02-03 16:31 | US ---
EXAMINATION TYPE: US venous doppler duplex LE DATE OF EXAM: 02/03/2021 4:24 PM COMPARISON: CLINICAL HISTORY: Swelling. Redness and itchy. Not on blood thinners. SIDE PERFORMED: Bilateral TECHNIQUE: The lower extremity deep venous system is examined utilizing real time linear array sonog lanette with graded compression, doppler sonography and color-flow sonography. VESSELS IMAGED: Common Femoral Vein- not visualized Deep Femoral Vein- not visualized Greater Saphenous Vein *- not visualized Femoral Vein Popliteal Vein Small Saphenous Vein * Proximal Calf Veins- not well visualized (* superficial vessels) Limited visualization due to patient body habitus and swelling Right Leg: Negative for acute DVT Left Leg: Negative for acute DVT IMPRESSION no evidence for DVT at this time.
[2021-02-03 18:06] VITALS: BP 134/78; PULSE 104; RESP 18
== END 2021-02-03 18:05 | disposition home or self-care (01) ==
LOC: EC 12:44
DX: I87.8 Other specified disorders of veins (principal); J44.9 Chronic obstructive pulmonary disease, unspecified; E66.01 Morbid (severe) obesity due to excess calories; Z87.891 Personal history of nicotine dependence
CPT/HCPCS: 36415; 80053; 83605; 83880; 84484; 85025; 85379; 85610; 85730; 93970; 99283

== ENCOUNTER → 2021-02-20 | Outpatient (CLI) | payer OTHER ==
[2021-02-20 14:36] LABS: Appearance,Urine Clear (Clear); Bilirubin,Urine Negative (Negative); Blood,Urine Negative (Negative); Color,Urine Light Yellow; Glucose,Urine (UA) Negative (Negative); Ketones,Urine Negative (Negative); Leukocyte Esterase,Urine Negative (Negative); Nitrite,Urine Negative (Negative); PH, Urine 7.5 (5.0-8.0); Protein,Urine Negative (Negative); Urobilinogen,Urine <2.0 mg/dL (<2.0)
== END | disposition home or self-care (01) ==
LOC: LABWHC1 13:55
PROVIDERS: ATTEND Family Medicine
DX: R35.0 Frequency of micturition (principal)
CPT/HCPCS: 36415; 81003; 84153; 87086

== ENCOUNTER → 2021-03-24 | Outpatient (CLI) | payer OTHER ==
--- NOTE | 2021-03-24 16:44 | US ---
EXAMINATION TYPE: US bladder DATE OF EXAM: 03/24/2021 COMPARISON: 04/20/2017 CLINICAL HISTORY: R35.0 Increased frequency of urination. EXAM MEASUREMENTS: Prevoid urinary bladder volume is 224 mL. Post Void Residual Volume: 26.5 mL Study is obscured due to patient's morbid obesity. Normal Post Void Residual (less than 50ml): Yes IMPRESSION: 1. Study is obscured due to patient's morbid obesity. 2. Prevoid urinary bladder volume is 224 mL. Post void urinary bladder volume is 26.5 mm, within norm al limits.
== END | disposition home or self-care (01) ==
LOC: RADUSWWP 15:38
PROVIDERS: ATTEND Family Medicine
DX: E66.01 Morbid (severe) obesity due to excess calories (principal)
CPT/HCPCS: 76857

== ENCOUNTER 2021-08-08 08:03 | Day surgery (SDC) | payer OTHER ==
[2021-08-05 15:49] VITALS: BMI 64.2
[~2021-08-08 08:03] MED LIST: LIDOCAINE 1% (10MG/ML) FOR IV START INTRADERMA PRN
[2021-08-08 08:31] VITALS: RESP 18; TEMP 97.9
[2021-08-08] MEDS: LACTATED RINGERS 1,000 ML IV SCH ×2 (08:31→08:53)
[2021-08-08] MEDS ORDERED: ALBUTEROL NEBULIZED 2.5 MG/3 ML INHALATION PRN (08:33)
[2021-08-08] MEDS ORDERED: ALBUTEROL HFA INHALER INHALATION PRN (08:43)
[2021-08-08] MEDS ORDERED: PROPOFOL 10 MG/ML 20 ML VIAL IV ONE (08:55)
[2021-08-08] MEDS ORDERED: KETAMINE 10 MG/ML 20 ML VIAL ONE (08:55)
[2021-08-08] MEDS ORDERED: MIDAZOLAM 2 MG/2 ML VIAL ONE (08:55)
[2021-08-08] MEDS ORDERED: IV FLUID CONTINUATION 1,000 ML IV ONE (09:09)
--- NOTE | 2021-08-08 09:14 | P.OP ---
Date of Procedure: 08/08/21 Preoperative Diagnosis: Screening Colonoscopy Postoperative Diagnosis: Same Procedure(s) Performed: Colonsocopy with hot snare polypectomy Anesthesia: MAC Surgeon: Duc Gagnon (\) Estimated Blood Loss (ml): 0 Condition: stable Disposition: PACU Description of Procedure: Patient is brought Endo suite placed in left lateral decub's position underwent sedation per department of anesthesia timeout performed correct patient correct procedure correct site was verified rectal exam was performed no gross abnormalities are noted scope was passed from the rectum to the cecum with the slowly withdrawn being sure to visualize all duffy of the colon on the way out in the transverse colon there was a small pedunculated polyp this was removed via hot snare polypectomy sent to pathology. There is no other gross abnormalities noted. Patient tolerated procedure well there are no apparent complications he'll need a repeat colonoscopy in 5-8 years
[2021-08-08 09:37] VITALS: BP 112/76; PULSE 68
== END 2021-08-08 09:48 | disposition home or self-care (01) ==
LOC: ORWHC2ENDO 08:03
PROVIDERS: ATTEND Student in an Organized Health Care Education/Training Program
DX: Z12.11 Encounter for screening for malignant neoplasm of colon (principal); D12.3 Benign neoplasm of transverse colon; J45.909 Unspecified asthma, uncomplicated; Z87.891 Personal history of nicotine dependence; M19.90 Unspecified osteoarthritis, unspecified site; G47.33 Obstructive sleep apnea (adult) (pediatric); Z79.899 Other long term (current) drug therapy
CPT/HCPCS: 45385; 94640; 88305; J2250; J2704

== ENCOUNTER 2021-11-27 07:15 | Emergency (ER) | payer OTHER ==
[2021-11-27] MEDS ORDERED: ONDANSETRON 4 MG/2 ML VIAL IVP STA (07:32)
[2021-11-27] MEDS ORDERED: DEXAMETHASONE SOD PHOSPHATE 10 MG/ML 1 ML VIAL IVP STA (07:32)
[2021-11-27] MEDS ORDERED: SODIUM CHLORIDE 0.9% 1,000 ML IV ONE (07:32)
[2021-11-27 08:13] LABS: African American GFR (CKD) >90 (>60 ml/min/1.73 sqM); Anion Gap 6 mmol/L; Blood Urea Nitrogen 17 mg/dL (9-20); Calcium 9.2 mg/dL (8.4-10.2); Carbon Dioxide 30 mmol/L (22-30); Chloride 101 mmol/L (98-107); Glucose 132 mg/dL (74-99); Non-African American GFR(CKD) >90 (>60 ml/min/1.73 sqM); Potassium 3.9 mmol/L (3.5-5.1); Sodium 137 mmol/L (137-145)
[2021-11-27 08:21] VITALS: RESP 18
--- NOTE | 2021-11-27 08:26 | XR ---
EXAMINATION TYPE: XR chest 2V DATE OF EXAM: 11/27/2021 COMPARISON: Chest x-ray 10/14/2020 HISTORY: Shortness of breath, Covid positive TECHNIQUE: Frontal and lateral views of the chest are obtained on 3 images. FINDINGS: Exam is somewhat limited by patient body habitus. Difficult to exclude faint patchy airspac e disease. There is increased AP diameter of the chest suggesting underlying COPD. There is pleural e ffusion or pneumothorax seen. The cardiac silhouette size is stable, suspect there are prominent epi cardial fat pads, there are overlying leads. The osseous structures are intact. IMPRESSION: Correlate for possible pneumonia. Additional findings above.
[2021-11-27 08:30] LABS: Basophils % (A) 0 %; Eosinophils # (A) 0.1 k/uL (0-0.7); Eosinophils % (A) 1 %; HGB 13.9 gm/dL (13.0-17.5); Hypochromasia Slight; Lymphocytes # (A) 0.9 k/uL (1.0-4.8); Lymphocytes % (A) 11 %; MCH 26.8 pg (25.0-35.0); MCHC 32.4 g/dL (31.0-37.0); MCV 82.6 fL (80.0-100.0); Mean Platelet Volume 7.3; Monocytes # (A) 0.4 k/uL (0-1.0); Monocytes % (A) 5 %; Neutrophils # (A) 6.5 k/uL (1.3-7.7); Neutrophils % (A) 82 %; Platelet Count 237 k/uL (150-450); RBC 5.21 m/uL (4.30-5.90); RDW 14.5 % (11.5-15.5); WBC 7.9 k/uL (3.8-10.6)
--- NOTE | 2021-11-27 08:49 | ED ---
General Adult HPI - General Chief complaint: Shortness of Breath Stated complaint: Covid, asthma attack Time Seen by Provider: 11/27/21 07:19 Source: patient, RN notes reviewed Mode of arrival: ambulatory Limitations: no limitations - History of Present Illness Initial comments: This a 55-year-old male presents emergency from chief complaint of COVID-19. Patient states he test +5 days ago. Patient states symptoms started around 9. Patient states that he's had fever cough congestion body aches. Patient felt more short of breath this morning which presented him to the emergency department. Patient states he was seen at urgent care and diagnosed on swab was given antibiotics to go home with. Patient states that he has no significant GI symptoms. Patient offers no complaints. - Related Data Home Medications Medication Instructions Recorded Confirmed Furosemide [Lasix] 40 mg PO DAILY 12/25/20 08/05/21 Spironolactone [Aldactone] 25 mg PO DAILY 12/25/20 08/05/21 Ergocalciferol [Vitamin D2 (1250 50,000 unit PO FR 01/09/21 08/05/21 Mcg = 66516 Iu)] Meloxicam 7.5 mg PO DAILY 08/05/21 08/08/21 Previous Rx's Medication Instructions Recorded Albuterol Nebulized [Ventolin 2.5 mg PO Q6H PRN #60 neb 10/16/20 Nebulized] Albuterol Sulfate [Ventolin HFA] 1 - 2 puff INHALATION Q6H PRN #1 10/16/20 inhaler Allergies Allergy/AdvReac Type Severity Reaction Status Date / Time No Known Allergies Allergy Verified 11/27/21 07:16 Review of Systems ROS Statement: Those systems with pertinent positive or pertinent negative responses have been documented in the HPI. ROS Other: All systems not noted in ROS Statement are negative. Past Medical History Past Medical History: Asthma, COPD, Osteoarthritis (OA), Sleep Apnea/CPAP/BIPAP Additional Past Medical History / Comment(s): No CPAP use. "Knee problems." Patient states exposed to positive Covid contact 07/28/21, had test done, awaiting results, has no symptoms. History of Any Multi-Drug Resistant Organisms: None Reported Past Surgical History: Appendectomy, Orthopedic Surgery, Tonsillectomy Additional Past Surgical History / Comment(s): Bilateral knee arthroscopy, surgery for sleep apnea - uvula and adenoids removed, carpal tunnel surgery, right shoulder surgery. Past Anesthesia/Blood Transfusion Reactions: No Reported Reaction Past Psychological History: No Psychological Hx Reported Smoking Status: Former smoker Past Alcohol Use History: None Reported Past Drug Use History: None Reported - Past Family History Father Family Medical History: Cancer Additional Family Medical History / Comment(s): . Mother History Unknown: Yes Family Medical History: Deep Vein Thrombosis (DVT) General Exam Limitations: no limitations General appearance: alert, in no apparent distress, obese Head exam: Present: atraumatic, normocephalic, normal inspection Eye exam: Present: normal appearance, PERRL, EOMI. Absent: scleral icterus, conjunctival injection, periorbital swelling ENT exam: Present: normal exam, mucous membranes moist Neck exam: Present: normal inspection. Absent: tenderness, meningismus, lymphadenopathy Respiratory exam: Present: normal lung sounds bilaterally. Absent: respiratory distress, wheezes, rales, rhonchi, stridor Cardiovascular Exam: Present: regular rate, normal rhythm, normal heart sounds. Absent: systolic murmur, diastolic murmur, rubs, gallop, clicks GI/Abdominal exam: Present: soft, normal bowel sounds. Absent: distended, tenderness, guarding, rebound, rigid Course Vital Signs 11/27/21 11/27/21 07:17 08:17 Temperature 98 F Pulse Rate 102 H 88 Respiratory 24 18 Rate Blood Pressure 154/87 141/77 O2 Sat by Pulse 96 97 Oximetry Medical Decision Making - Medical Decision Making Labs unremarkable. Patient pulse ox is between 96-98%. Patient chest x-ray is essentially normal possible early pneumonia type changes. Patient was seen at [facility] vaginal discharge or stable condition. - Lab Data Result diagrams: 11/27/21 07:36 11/27/21 07:36 Lab Results 11/27/21 11/27/21 11/27/21 Range/Units 07:36 07:36 07:36 WBC 7.9 (3.8-10.6) k/uL RBC 5.21 (4.30-5.90) m/uL Hgb 13.9 (13.0-17.5) gm/dL Hct 43.0 (39.0-53.0) % MCV 82.6 (80.0-100.0) fL MCH 26.8 (25.0-35.0) pg MCHC 32.4 (31.0-37.0) g/dL RDW 14.5 (11.5-15.5) % Plt Count 237 (150-450) k/uL MPV 7.3 Neutrophils % 82 % Lymphocytes % 11 % Monocytes % 5 % Eosinophils % 1 % Basophils % 0 % Neutrophils # 6.5 (1.3-7.7) k/uL Lymphocytes # 0.9 L (1.0-4.8) k/uL Monocytes # 0.4 (0-1.0) k/uL Eosinophils # 0.1 (0-0.7) k/uL Basophils # 0.0 (0-0.2) k/uL Hypochromasia Slight Sodium 137 (137-145) mmol/L Potassium 3.9 (3.5-5.1) mmol/L Chloride 101 (98-107) mmol/L Carbon Dioxide 30 (22-30) mmol/L Anion Gap 6 mmol/L BUN 17 (9-20) mg/dL Creatinine 0.76 (0.66-1.25) mg/dL Est GFR (CKD-EPI)AfAm >90 (>60 ml/min/1.73 sqM) Est GFR (CKD-EPI)NonAf >90 (>60 ml/min/1.73 sqM) Glucose 132 H (74-99) mg/dL Calcium 9.2 (8.4-10.2) mg/dL Coronavirus (PCR) Detected A (Not Detectd) Disposition Clinical Impression: COVID-19 Disposition: HOME SELF-CARE Condition: Stable Instructions (If sedation given, give patient instructions): Coronavirus Disease 2019 (COVID-19) Additional Instructions: Please return to the Emergency Department if symptoms worsen or any other concerns. Is patient prescribed a controlled substance at d/c from ED?: No Referrals: Alfredo Hope DO [Primary Care Provider] - 1-2 days Time of Disposition: 08:49
[2021-11-27] MEDS ORDERED: BAMLANIVIMAB (EUA) 700 MG, ETESEVIMAB (EUA) 1,400 MG in SODIUM CHLORIDE 0.9% 100 ML IVPB ONE (09:00)
[2021-11-27] MEDS ORDERED: SODIUM CHLORIDE 0.9% 50 ML IVPB ONE (09:30)
[2021-11-27 10:10] VITALS: BP 142/81; PULSE 88; TEMP 97.8
== END 2021-11-27 10:10 | disposition home or self-care (01) ==
LOC: EC 07:15
DX: U07.1 COVID-19 (principal); J44.9 Chronic obstructive pulmonary disease, unspecified; M19.90 Unspecified osteoarthritis, unspecified site; Z79.899 Other long term (current) drug therapy; Z87.891 Personal history of nicotine dependence
CPT/HCPCS: 36415; 93005; 80048; 85025; 87635; 71046; 99285; 96374; 96375; 96361; J1100; J2405; J3490

== ENCOUNTER 2022-01-20 03:56 | Emergency (ER) | payer OTHER ==
--- NOTE | 2022-01-20 07:24 | XR ---
EXAMINATION TYPE: XR chest 2V DATE OF EXAM: 01/20/2022 COMPARISON: 11/27/2021 HISTORY: 56-year-old male shortness of breath and trouble breathing TECHNIQUE: PA and lateral views FINDINGS: Heart is mildly enlarged. Bilateral vascular and interstitial prominence. No pleural effusion. [facility] i n the midthoracic spine. There is a curvilinear metallic density that projects at the left lower lung . Unable to localize this structure on the lateral view. No consolidation or pleural effusion. Degene rative changes bilateral AC joints. IMPRESSION: 1. Cardiomegaly and interstitial/vascular prominence. Correlate for mild CHF with pulmonary vascular congestion. No tarik pulmonary edema. 2. A curvilinear metallic density projecting at the left lower lung seems to represent some type of w cecil. We are unable to localize this structure on the lateral view suggesting that it represents exter nal artifact. Recommend clinical correlation to confirm.
[2022-01-20] MEDS ORDERED: ALBUTEROL HFA INHALER INHALATION STA (07:59)
[2022-01-20 08:35] VITALS: BP 120/52; PULSE 86; RESP 16; TEMP 98.3
--- NOTE | 2022-01-20 08:58 | ED ---
General Adult HPI - General Chief complaint: Shortness of Breath Stated complaint: SOB Time Seen by Provider: 01/20/22 07:33 Source: patient, RN notes reviewed, old records reviewed Mode of arrival: ambulatory - History of Present Illness Initial comments: Patient is a 56-year-old male with past medical history remarkable for COPD, asthma, chronic sleep apnea, chronic lower extremity edema who presents emergency Department complaining of shortness of breath. States he believes it may be his asthma or COPD. Her typical symptoms for him. Endorses mild cough but denies any cough production. No nausea, vomiting, chest pain, abdominal pain. Otherwise no acute point at this time. Was fully vaccinated for Covid. No sick contacts. No fevers or chills. Presents with concern for his breathing. Patient was evaluated when he was placed in a room. - Related Data Home Medications Medication Instructions Recorded Confirmed Furosemide [Lasix] 40 mg PO DAILY 12/25/20 01/20/22 Spironolactone [Aldactone] 25 mg PO DAILY 12/25/20 01/20/22 Ergocalciferol [Vitamin D2 (1250 1,250 mcg PO FR 01/09/21 01/20/22 Mcg = 08899 Iu)] Meloxicam 7.5 mg PO DAILY PRN 08/05/21 01/20/22 Previous Rx's Medication Instructions Recorded Albuterol Inhaler [Ventolin Hfa 1 puff INHALATION RT-TID #8 gm 01/20/22 Inhaler] predniSONE [Deltasone] 40 mg PO DAILY 5 Days #10 tab 01/20/22 Allergies Allergy/AdvReac Type Severity Reaction Status Date / Time No Known Allergies Allergy Verified 01/20/22 09:31 Review of Systems ROS Statement: Those systems with pertinent positive or pertinent negative responses have been documented in the HPI. Review of Systems: CONST: Denies fever EYES: Denies blurry vision ENT: Denies nasal congestion C/V: Denies Chest pain RESP: Endorses cough GI: Denies abdominal pain : Denies dysuria SKIN: Denies rash. MSK: Denies joint pain. NEURO: Denies headache ROS Other: All systems not noted in ROS Statement are negative. Past Medical History Past Medical History: Asthma, COPD, Osteoarthritis (OA), Sleep Apnea/CPAP/BIPAP Additional Past Medical History / Comment(s): No CPAP use. "Knee problems." Patient states exposed to positive Covid contact 07/28/21, had test done, awaiting results, has no symptoms. History of Any Multi-Drug Resistant Organisms: None Reported Past Surgical History: Appendectomy, Orthopedic Surgery, Tonsillectomy Additional Past Surgical History / Comment(s): Bilateral knee arthroscopy, surgery for sleep apnea - uvula and adenoids removed, carpal tunnel surgery, right shoulder surgery. Past Anesthesia/Blood Transfusion Reactions: No Reported Reaction Past Psychological History: No Psychological Hx Reported Smoking Status: Former smoker Past Alcohol Use History: Rare Past Drug Use History: None Reported - Past Family History Father Family Medical History: Cancer Additional Family Medical History / Comment(s): . Mother History Unknown: Yes Family Medical History: Deep Vein Thrombosis (DVT) General Exam - General Exam Comments Initial Comments: General: Appears in no acute distress. HEAD: Normal with no signs of head trauma. EYES: PERRLA, EOMI, conjunctiva normal, no discharge. ENT: Hearing grossly intact, normal oropharynx. RESPIRATORY: Bilateral end expiratory wheezing. No rhonchi. No increased work of breathing. No hypoxia. C/V: Regular rate and rhythm. S1 and S2 auscultated, no edema, peripheral pulses 2+ and intact throughout ABD: Abd is soft, nontender, nondistended EXT: Normal range of motion, no obvious deformity SKIN: No rashes or lesions observed on exposed skin. NEURO: Alert and oriented x 4. Cranial nerves II-XII intact. No focal sensory or strength deficits. Course Vital Signs 01/20/22 01/20/22 06:44 08:34 Temperature 97.3 F L 98.3 F Pulse Rate 80 86 Respiratory 22 16 Rate Blood Pressure 110/63 120/52 O2 Sat by Pulse 96 96 Oximetry Medical Decision Making - Medical Decision Making Based on the patient's presentation and physical exam, I was concerned for pulmonary cardio cause for his current symptoms. He is wheezing and appears he is having exacerbation of COPD, however it would like to obtain a cardiac screening, including BNP does have some mild congestion on chest x-ray which is seen on prior x-rays as well. Patient was in agreement with this plan. EKG showed no signs of ischemia. Chest x-ray revealed cardiomegaly and interstitial vascular prominence which could be mild CHF. There is a possible wire seen on one view, which is likely exterior to the patient. I evaluation, does appear to be either from a shirt or jacket, as they obtained the x-ray on the patient was in triage. No concern for an located inside of his thorax. Laboratory studies are remarkable for negative troponin, as well as a BNP within normal limits. Covid and flu swabs are negative. On reevaluation, patient remains stable. Breathing is improved. Less wheezing on exam. Vital signs remained within normal limits and stable. I believe it is safe for him to be discharged with this time. He was given steroids in addition to his breathing treatment. Patient was in agreement this plan. We discussed his workup. I will provide the patient with a prescription for prednisone, albuterol inhaler. I instructed the patient to follow up with their PCP in the next 3 days. I explained that the patient should return to the emergency department if they experience any worsening symptoms. Strict return precautions were discussed with the patient. The patient expressed understanding of these instructions. I answered all questions that the patient had. The patient was discharged home in good condition with their prescriptions and follow up information. - Lab Data Result diagrams: 01/20/22 08:11 01/20/22 08:11 Lab Results 01/20/22 01/20/22 01/20/22 Range/Units 08:11 08:11 08:11 WBC 8.2 (3.8-10.6) k/uL RBC 5.19 (4.30-5.90) m/uL Hgb 14.0 (13.0-17.5) gm/dL Hct 43.3 (39.0-53.0) % MCV 83.5 (80.0-100.0) fL MCH 27.0 (25.0-35.0) pg MCHC 32.3 (31.0-37.0) g/dL RDW 15.3 (11.5-15.5) % Plt Count 263 (150-450) k/uL MPV 7.3 Neutrophils % 73 % Lymphocytes % 17 % Monocytes % 6 % Eosinophils % 3 % Basophils % 1 % Neutrophils # 6.0 (1.3-7.7) k/uL Lymphocytes # 1.4 (1.0-4.8) k/uL Monocytes # 0.5 (0-1.0) k/uL Eosinophils # 0.3 (0-0.7) k/uL Basophils # 0.0 (0-0.2) k/uL PT 10.0 (9.0-12.0) sec INR 0.9 (<1.2) APTT 25.8 (22.0-30.0) sec Sodium 138 (137-145) mmol/L Potassium 4.0 (3.5-5.1) mmol/L Chloride 103 (98-107) mmol/L Carbon Dioxide 31 H (22-30) mmol/L Anion Gap 4 mmol/L BUN 17 (9-20) mg/dL Creatinine 0.81 (0.66-1.25) mg/dL Est GFR (CKD-EPI)AfAm >90 (>60 ml/min/1.73 sqM) Est GFR (CKD-EPI)NonAf >90 (>60 ml/min/1.73 sqM) Glucose 107 H (74-99) mg/dL Calcium 8.9 (8.4-10.2) mg/dL Magnesium 1.9 (1.6-2.3) mg/dL Total Bilirubin 0.5 (0.2-1.3) mg/dL AST 23 (17-59) U/L ALT 19 (4-49) U/L Alkaline Phosphatase 89 (38-126) U/L Troponin I (0.000-0.034) ng/mL NT-Pro-B Natriuret Pep pg/mL Total Protein 6.4 (6.3-8.2) g/dL Albumin 3.8 (3.5-5.0) g/dL Coronavirus (PCR) (Not Detectd) Influenza Type A RNA (Not Detectd) Influenza Type B (PCR) (Not Detectd) 01/20/22 01/20/22 01/20/22 Range/Units 08:11 08:11 08:11 WBC (3.8-10.6) k/uL RBC (4.30-5.90) m/uL Hgb (13.0-17.5) gm/dL Hct (39.0-53.0) % MCV (80.0-100.0) fL MCH (25.0-35.0) pg MCHC (31.0-37.0) g/dL RDW (11.5-15.5) % Plt Count (150-450) k/uL MPV Neutrophils % % Lymphocytes % % Monocytes % % Eosinophils % % Basophils % % Neutrophils # (1.3-7.7) k/uL Lymphocytes # (1.0-4.8) k/uL Monocytes # (0-1.0) k/uL Eosinophils # (0-0.7) k/uL Basophils # (0-0.2) k/uL PT (9.0-12.0) sec INR (<1.2) APTT (22.0-30.0) sec Sodium (137-145) mmol/L Potassium (3.5-5.1) mmol/L Chloride (98-107) mmol/L Carbon Dioxide (22-30) mmol/L Anion Gap mmol/L BUN (9-20) mg/dL Creatinine (0.66-1.25) mg/dL Est GFR (CKD-EPI)AfAm (>60 ml/min/1.73 sqM) Est GFR (CKD-EPI)NonAf (>60 ml/min/1.73 sqM) Glucose (74-99) mg/dL Calcium (8.4-10.2) mg/dL Magnesium (1.6-2.3) mg/dL Total Bilirubin (0.2-1.3) mg/dL AST (17-59) U/L ALT (4-49) U/L Alkaline Phosphatase (38-126) U/L Troponin I <0.012 (0.000-0.034) ng/mL NT-Pro-B Natriuret Pep 43 pg/mL Total Protein (6.3-8.2) g/dL Albumin (3.5-5.0) g/dL Coronavirus (PCR) (Not Detectd) Influenza Type A RNA Not Detected (Not Detectd) Influenza Type B (PCR) Not Detected (Not Detectd) 01/20/22 Range/Units 08:11 WBC (3.8-10.6) k/uL RBC (4.30-5.90) m/uL Hgb (13.0-17.5) gm/dL Hct (39.0-53.0) % MCV (80.0-100.0) fL MCH (25.0-35.0) pg MCHC (31.0-37.0) g/dL RDW (11.5-15.5) % Plt Count (150-450) k/uL MPV Neutrophils % % Lymphocytes % % Monocytes % % Eosinophils % % Basophils % % Neutrophils # (1.3-7.7) k/uL Lymphocytes # (1.0-4.8) k/uL Monocytes # (0-1.0) k/uL Eosinophils # (0-0.7) k/uL Basophils # (0-0.2) k/uL PT (9.0-12.0) sec INR (<1.2) APTT (22.0-30.0) sec Sodium (137-145) mmol/L Potassium (3.5-5.1) mmol/L Chloride (98-107) mmol/L Carbon Dioxide (22-30) mmol/L Anion Gap mmol/L BUN (9-20) mg/dL Creatinine (0.66-1.25) mg/dL Est GFR (CKD-EPI)AfAm (>60 ml/min/1.73 sqM) Est GFR (CKD-EPI)NonAf (>60 ml/min/1.73 sqM) Glucose (74-99) mg/dL Calcium (8.4-10.2) mg/dL Magnesium (1.6-2.3) mg/dL Total Bilirubin (0.2-1.3) mg/dL AST (17-59) U/L ALT (4-49) U/L Alkaline Phosphatase (38-126) U/L Troponin I (0.000-0.034) ng/mL NT-Pro-B Natriuret Pep pg/mL Total Protein (6.3-8.2) g/dL Albumin (3.5-5.0) g/dL Coronavirus (PCR) Not Detected (Not Detectd) Influenza Type A RNA (Not Detectd) Influenza Type B (PCR) (Not Detectd) - EKG Data -: EKG Interpreted by Me EKG Comments: 12-lead Electrocardiogram Interpretation Note EKG was reviewed and interpreted by myself. 12-lead ECG performed at 0845 is interpreted by me as revealing normal sinus rhythm at a rate of 92 beats per minute. [place] is normal. MD interval is 181 ms, QRS duration is 137 ms, QTc is 423 ms.. There were no ST or T wave abnormalities to suggest myocardial ischemia or injury. R wave progression across the precordium was satisfactory. By my interpretation this EKG is non-diagnostic for acute ischemia. Disposition Clinical Impression: COPD exacerbation Disposition: HOME SELF-CARE Condition: Good Prescriptions: predniSONE [Deltasone] 40 mg PO DAILY 5 Days #10 tab Albuterol Inhaler [Ventolin Hfa Inhaler] 1 puff INHALATION RT-TID #8 gm Is patient prescribed a controlled substance at d/c from ED?: No Referrals: Alfredo Hope DO [Primary Care Provider] - 1-2 days
[2022-01-20 09:00] LABS: Basophils % (A) 1 %; Eosinophils # (A) 0.3 k/uL (0-0.7); Eosinophils % (A) 3 %; HCT 43.3 % (39.0-53.0); Lymphocytes # (A) 1.4 k/uL (1.0-4.8); Lymphocytes % (A) 17 %; MCHC 32.3 g/dL (31.0-37.0); MCV 83.5 fL (80.0-100.0); Mean Platelet Volume 7.3; Monocytes # (A) 0.5 k/uL (0-1.0); Monocytes % (A) 6 %; Neutrophils % (A) 73 %; Platelet Count 263 k/uL (150-450); RBC 5.19 m/uL (4.30-5.90); RDW 15.3 % (11.5-15.5); WBC 8.2 k/uL (3.8-10.6)
[2022-01-20 09:08] LABS: INR 0.9 (<1.2); Partial Thromboplastin Time 25.8 sec (22.0-30.0)
[2022-01-20 09:12] LABS: ALT 19 U/L (4-49); AST 23 U/L (17-59); African American GFR (CKD) >90 (>60 ml/min/1.73 sqM); Albumin 3.8 g/dL (3.5-5.0); Alkaline Phosphatase 89 U/L (38-126); Anion Gap 4 mmol/L; Blood Urea Nitrogen 17 mg/dL (9-20); Calcium 8.9 mg/dL (8.4-10.2); Carbon Dioxide 31 mmol/L (22-30); Chloride 103 mmol/L (98-107); Glucose 107 mg/dL (74-99); Magnesium 1.9 mg/dL (1.6-2.3); Non-African American GFR(CKD) >90 (>60 ml/min/1.73 sqM); Sodium 138 mmol/L (137-145); Total Bilirubin 0.5 mg/dL (0.2-1.3); Total Protein 6.4 g/dL (6.3-8.2)
[2022-01-20] MEDS ORDERED: predniSONE 20 MG TAB PO STA (09:50)
== END 2022-01-20 10:29 | disposition home or self-care (01) ==
LOC: EC 03:56
DX: J44.1 Chronic obstructive pulmonary disease with (acute) exacerbation (principal); Z20.822 Contact with and (suspected) exposure to COVID-19; Z87.891 Personal history of nicotine dependence; Z79.899 Other long term (current) drug therapy
CPT/HCPCS: 36415; 94640; 93005; 83880; 80053; 83735; 84484; 85025; 85610; 85730; 87502; 87635; 71046; 99285; J7512

== ENCOUNTER 2022-03-20 02:47 | Observation (INO) | payer OTHER ==
--- NOTE | 2022-03-20 08:40 | ED ---
General Adult HPI - General Chief complaint: Shortness of Breath Time Seen by Provider: 03/20/22 08:00 Source: patient, RN notes reviewed, old records reviewed Mode of arrival: wheelchair Limitations: no limitations - History of Present Illness Initial comments: This is a 56-year-old male who presents emergency Department with a past medical history significant for asthma. Patient came in initially complaining of shortness of breath and a dry throat and body aches. Patient tells me that he has had chest heaviness since he came in but did not initially mention. Patient states heaviness seems to radiate to his shoulders. Patient denies any fever chills per patient states he does have a COVID vaccine. Patient denies any headache patient denies any focal numbness or weakness. Patient denies any abdominal pain patient denies nausea vomiting diarrhea. - Related Data Home Medications Medication Instructions Recorded Confirmed Furosemide [Lasix] 40 mg PO DAILY 12/25/20 01/20/22 Spironolactone [Aldactone] 25 mg PO DAILY 12/25/20 01/20/22 Ergocalciferol [Vitamin D2 (1250 1,250 mcg PO FR 01/09/21 01/20/22 Mcg = 99031 Iu)] Meloxicam 7.5 mg PO DAILY PRN 08/05/21 01/20/22 Previous Rx's Medication Instructions Recorded Albuterol Inhaler [Ventolin Hfa 1 puff INHALATION RT-TID #8 gm 01/20/22 Inhaler] predniSONE [Deltasone] 40 mg PO DAILY 5 Days #10 tab 01/20/22 Allergies Allergy/AdvReac Type Severity Reaction Status Date / Time No Known Allergies Allergy Verified 01/20/22 09:31 Review of Systems ROS Statement: Those systems with pertinent positive or pertinent negative responses have been documented in the HPI. ROS Other: All systems not noted in ROS Statement are negative. Past Medical History Past Medical History: Asthma, COPD, Osteoarthritis (OA), Sleep Apnea/CPAP/BIPAP Additional Past Medical History / Comment(s): No CPAP use. "Knee problems." Patient states exposed to positive Covid contact 07/28/21, had test done, awaiting results, has no symptoms. History of Any Multi-Drug Resistant Organisms: None Reported Past Surgical History: Appendectomy, Orthopedic Surgery, Tonsillectomy Additional Past Surgical History / Comment(s): Bilateral knee arthroscopy, surgery for sleep apnea - uvula and adenoids removed, carpal tunnel surgery, right shoulder surgery. Past Anesthesia/Blood Transfusion Reactions: No Reported Reaction Past Psychological History: No Psychological Hx Reported Smoking Status: Former smoker Past Alcohol Use History: Rare Past Drug Use History: None Reported - Past Family History Father Family Medical History: Cancer Additional Family Medical History / Comment(s): . Mother History Unknown: Yes Family Medical History: Deep Vein Thrombosis (DVT) General Exam - General Exam Comments Initial Comments: GENERAL: Patient is well-developed and well-nourished. Patient is nontoxic and well- hydrated and is in mild distress. ENT: Neck is soft and supple. No significant lymphadenopathy is noted. Oropharynx is clear. Moist mucous membranes. Neck has full range of motion without eliciting any pain. EYES: The sclera were anicteric and conjunctiva were pink and moist. Extraocular movements were intact and pupils were equal round and reactive to light. Eye lids were unremarkable. PULMONARY: Unlabored respirations. Good breath sounds bilaterally. No audible rales rhonchi or wheezing was noted. CARDIOVASCULAR: There is a regular rate and rhythm without any murmurs gallops or rubs. ABDOMEN: Soft and nontender with normal bowel sounds. SKIN: Skin is clear with no lesions or rashes and otherwise unremarkable. NEUROLOGIC: Patient is alert and oriented x3. Cranial nerves II through XII are grossly intact. Motor and sensory are also intact. Normal speech, volume and content. Symmetrical smile. MUSCULOSKELETAL: Normal extremities with adequate strength and full range of motion. Patient has chronic cellulitis both legs. Patient states is no worse than normal. LYMPHATICS: No significant lymphadenopathy is noted PSYCHIATRIC: Normal psychiatric evaluation. Limitations: no limitations Course Vital Signs 03/20/22 03/20/22 07:48 10:40 Temperature 98.0 F Pulse Rate 101 H 86 Respiratory 20 16 Rate Blood Pressure 157/80 137/69 O2 Sat by Pulse 95 94 L Oximetry Medical Decision Making - Medical Decision Making EKG shows sinus rhythm at 89 bpm SD interval 191 QRS is under 2090 QT interval 350 QTC is 405. Patient's EKG shows no ST segment elevation or depression. - Lab Data Result diagrams: 03/20/22 08:40 03/20/22 08:40 Lab Results 03/20/22 03/20/22 03/20/22 Range/Units 08:40 08:40 08:40 WBC 8.4 (3.8-10.6) k/uL RBC 4.91 (4.30-5.90) m/uL Hgb 13.2 (13.0-17.5) gm/dL Hct 42.0 (39.0-53.0) % MCV 85.6 (80.0-100.0) fL MCH 26.9 (25.0-35.0) pg MCHC 31.4 (31.0-37.0) g/dL RDW 14.7 (11.5-15.5) % Plt Count 263 (150-450) k/uL MPV 7.2 Neutrophils % 78 % Lymphocytes % 13 % Monocytes % 5 % Eosinophils % 2 % Basophils % 1 % Neutrophils # 6.5 (1.3-7.7) k/uL Lymphocytes # 1.1 (1.0-4.8) k/uL Monocytes # 0.5 (0-1.0) k/uL Eosinophils # 0.1 (0-0.7) k/uL Basophils # 0.0 (0-0.2) k/uL PT 10.1 (9.0-12.0) sec INR 0.9 (<1.2) APTT 25.6 (22.0-30.0) sec Sodium 138 (137-145) mmol/L Potassium 4.3 (3.5-5.1) mmol/L Chloride 101 (98-107) mmol/L Carbon Dioxide 30 (22-30) mmol/L Anion Gap 7 mmol/L BUN 12 (9-20) mg/dL Creatinine 0.64 L (0.66-1.25) mg/dL Est GFR (CKD-EPI)AfAm >90 (>60 ml/min/1.73 sqM) Est GFR (CKD-EPI)NonAf >90 (>60 ml/min/1.73 sqM) Glucose 123 H (74-99) mg/dL Plasma Lactic Acid Dionicio (0.7-2.0) mmol/L Calcium 8.8 (8.4-10.2) mg/dL Magnesium 1.9 (1.6-2.3) mg/dL Total Bilirubin 0.8 (0.2-1.3) mg/dL AST 29 (17-59) U/L ALT 19 (4-49) U/L Alkaline Phosphatase 82 (38-126) U/L Troponin I (0.000-0.034) ng/mL NT-Pro-B Natriuret Pep pg/mL Total Protein 6.5 (6.3-8.2) g/dL Albumin 3.9 (3.5-5.0) g/dL Coronavirus (PCR) (Not Detectd) Group A Strep Rapid (Negative) 03/20/22 03/20/22 03/20/22 Range/Units 08:40 08:40 08:40 WBC (3.8-10.6) k/uL RBC (4.30-5.90) m/uL Hgb (13.0-17.5) gm/dL Hct (39.0-53.0) % MCV (80.0-100.0) fL MCH (25.0-35.0) pg MCHC (31.0-37.0) g/dL RDW (11.5-15.5) % Plt Count (150-450) k/uL MPV Neutrophils % % Lymphocytes % % Monocytes % % Eosinophils % % Basophils % % Neutrophils # (1.3-7.7) k/uL Lymphocytes # (1.0-4.8) k/uL Monocytes # (0-1.0) k/uL Eosinophils # (0-0.7) k/uL Basophils # (0-0.2) k/uL PT (9.0-12.0) sec INR (<1.2) APTT (22.0-30.0) sec Sodium (137-145) mmol/L Potassium (3.5-5.1) mmol/L Chloride (98-107) mmol/L Carbon Dioxide (22-30) mmol/L Anion Gap mmol/L BUN (9-20) mg/dL Creatinine (0.66-1.25) mg/dL Est GFR (CKD-EPI)AfAm (>60 ml/min/1.73 sqM) Est GFR (CKD-EPI)NonAf (>60 ml/min/1.73 sqM) Glucose (74-99) mg/dL Plasma Lactic Acid Dionicio 1.0 (0.7-2.0) mmol/L Calcium (8.4-10.2) mg/dL Magnesium (1.6-2.3) mg/dL Total Bilirubin (0.2-1.3) mg/dL AST (17-59) U/L ALT (4-49) U/L Alkaline Phosphatase (38-126) U/L Troponin I <0.012 (0.000-0.034) ng/mL NT-Pro-B Natriuret Pep 49 pg/mL Total Protein (6.3-8.2) g/dL Albumin (3.5-5.0) g/dL Coronavirus (PCR) (Not Detectd) Group A Strep Rapid (Negative) 03/20/22 03/20/22 Range/Units 08:40 08:40 WBC (3.8-10.6) k/uL RBC (4.30-5.90) m/uL Hgb (13.0-17.5) gm/dL Hct (39.0-53.0) % MCV (80.0-100.0) fL MCH (25.0-35.0) pg MCHC (31.0-37.0) g/dL RDW (11.5-15.5) % Plt Count (150-450) k/uL MPV Neutrophils % % Lymphocytes % % Monocytes % % Eosinophils % % Basophils % % Neutrophils # (1.3-7.7) k/uL Lymphocytes # (1.0-4.8) k/uL Monocytes # (0-1.0) k/uL Eosinophils # (0-0.7) k/uL Basophils # (0-0.2) k/uL PT (9.0-12.0) sec INR (<1.2) APTT (22.0-30.0) sec Sodium (137-145) mmol/L Potassium (3.5-5.1) mmol/L Chloride (98-107) mmol/L Carbon Dioxide (22-30) mmol/L Anion Gap mmol/L BUN (9-20) mg/dL Creatinine (0.66-1.25) mg/dL Est GFR (CKD-EPI)AfAm (>60 ml/min/1.73 sqM) Est GFR (CKD-EPI)NonAf (>60 ml/min/1.73 sqM) Glucose (74-99) mg/dL Plasma Lactic Acid Dionicio (0.7-2.0) mmol/L Calcium (8.4-10.2) mg/dL Magnesium (1.6-2.3) mg/dL Total Bilirubin (0.2-1.3) mg/dL AST (17-59) U/L ALT (4-49) U/L Alkaline Phosphatase (38-126) U/L Troponin I (0.000-0.034) ng/mL NT-Pro-B Natriuret Pep pg/mL Total Protein (6.3-8.2) g/dL Albumin (3.5-5.0) g/dL Coronavirus (PCR) Not Detected (Not Detectd) Group A Strep Rapid Negative (Negative) Disposition Clinical Impression: Chest pain, Dyspnea Disposition: ADMITTED IP TO THIS HOSP Referrals: Alfredo Hope DO [Primary Care Provider] - 1-2 days Time of Disposition: 11:23
[2022-03-20 09:04] LABS: Basophils % (A) 1 %; Eosinophils # (A) 0.1 k/uL (0-0.7); Eosinophils % (A) 2 %; HGB 13.2 gm/dL (13.0-17.5); Lymphocytes # (A) 1.1 k/uL (1.0-4.8); Lymphocytes % (A) 13 %; MCH 26.9 pg (25.0-35.0); MCHC 31.4 g/dL (31.0-37.0); MCV 85.6 fL (80.0-100.0); Mean Platelet Volume 7.2; Monocytes # (A) 0.5 k/uL (0-1.0); Monocytes % (A) 5 %; Neutrophils # (A) 6.5 k/uL (1.3-7.7); Neutrophils % (A) 78 %; Platelet Count 263 k/uL (150-450); RBC 4.91 m/uL (4.30-5.90); RDW 14.7 % (11.5-15.5); WBC 8.4 k/uL (3.8-10.6)
--- NOTE | 2022-03-20 09:06 | XR ---
EXAMINATION TYPE: XR chest 2V DATE OF EXAM: 03/20/2022 COMPARISON: Chest x-ray January 20, 2022 HISTORY: History of COPD with shortness of breath TECHNIQUE: Frontal and lateral views of the chest are obtained. FINDINGS: Exam slightly suboptimal due to patient's large body habitus. There is no suspicious focal air space opacity, pleural effusion, or pneumothorax seen. The cardiac silhouette size is enlarged. Bridging anterior osteophytes in the lower thoracic spine redemonstrated. IMPRESSION: Cardiomegaly without acute pulmonary process.
[2022-03-20 09:16] LABS: ALT 19 U/L (4-49); AST 29 U/L (17-59); African American GFR (CKD) >90 (>60 ml/min/1.73 sqM); Albumin 3.9 g/dL (3.5-5.0); Alkaline Phosphatase 82 U/L (38-126); Anion Gap 7 mmol/L; Blood Urea Nitrogen 12 mg/dL (9-20); Calcium 8.8 mg/dL (8.4-10.2); Carbon Dioxide 30 mmol/L (22-30); Chloride 101 mmol/L (98-107); Glucose 123 mg/dL (74-99); Magnesium 1.9 mg/dL (1.6-2.3); Non-African American GFR(CKD) >90 (>60 ml/min/1.73 sqM); Sodium 138 mmol/L (137-145); Total Bilirubin 0.8 mg/dL (0.2-1.3); Total Protein 6.5 g/dL (6.3-8.2)
[2022-03-20 09:19] LABS: INR 0.9 (<1.2); Partial Thromboplastin Time 25.6 sec (22.0-30.0); Prothrombin Time 10.1 sec (9.0-12.0)
[2022-03-20 09:23] LABS: Potassium 4.3 mmol/L (3.5-5.1)
[2022-03-20] MEDS ORDERED: SODIUM CHLORIDE 0.9% 1,000 ML IV ONE (11:23)
[2022-03-20] MEDS ORDERED: ALBUTEROL NEBULIZED 2.5 MG/3 ML INHALATION PRN (17:45)
[2022-03-20] MEDS ORDERED: NALOXONE 0.4 MG/ML 1 ML VIAL IVP PRN (17:45)
--- NOTE | 2022-03-20 17:51 | P.HPIM ---
History of Present Illness H&P Date: 03/20/22 Chief Complaint: Dyspnea 56-year-old man with medical history of COPD, obesity class III, obstructive sleep apnea who presented with shortness of breath. Patient reports onset today with symptoms leading up to it of sore throat, body aches in the last few days. Patient does not report any sputum production. Patient has previously been hospitalized approximately once per year he says for COPD exacerbation. He has never been intubated. He is a CPAP at home. He denies fevers, chills, nausea, vomiting, chest pain, palpitations, syncope, presyncope, abdominal pain, co nstipation, diarrhea, dysuria, dyschezia, numbness/weakness of extremities. In the emergency room, patient is afebrile, 157/80, heart rate 101, 95% on room air. CBC, chemistries, LFTs are unremarkable. Initial troponin was less than 0.012. BNP was 49. Lactic acid was 1.0. Covid was negative. Group A strep was negative. Coags are unremarkable. Chest x-ray demonstrates cardiomegaly without acute pulmonary process. EKG demonstrates normal sinus rhythm with pulmonary hypertension pattern. All Systems reviewed and pertinent positives and negatives noted in HPI, all other symptoms are negative Gen: awake, alert HEENT: normocephalic, atraumatic, good hearing acuity, moist mucous membranes Resp: good air exchange, breathing comfortably with no accessory muscle use, and expiratory wheezing diffusely CVS: good distal perfusion x 4, regular rate and rhythm without murmurs GI: soft, NTTP, ND : no SPT, no CVAT, worley catheter not present MSK: Trace pitting edema, bilateral lymphedema with woody dermatitis changes, no clubbing Neuro: non-focal, moving all extremities Psych: cooperative, euthymic mood Labs and imaging reviewed as above Assessment/plan: COPD exacerbation, acute -Admit to observation, telemetry -duonebs + albuterol PRN -azithromycin -symbicort -Prednisone Chest Pain, atypical -Trend troponins -Cardiology consult -EKG/nitro when necessary -Echo Obesity, class III Lymphedema -Weight loss referral outpatient -Wound care for lymphedema treatment Obstructive sleep apnea -CPAP at night Patient is full code DVT prophylaxis with heparin 3 times a day, increase dose to 7500 due to weight Past Medical History Past Medical History: Asthma, COPD, Osteoarthritis (OA), Sleep Apnea/CPAP/BIPAP Additional Past Medical History / Comment(s): was ordered a CPAP, does not use it.. Arthritic knees/hands History of Any Multi-Drug Resistant Organisms: None Reported Past Surgical History: Adenoidectomy, Appendectomy, Orthopedic Surgery, Tonsillectomy Additional Past Surgical History / Comment(s): Bilateral knee arthroscopy, mercedes rgery for sleep apnea - uvula and adenoids removed, carpal tunnel surgery, right shoulder surgery. Past Anesthesia/Blood Transfusion Reactions: No Reported Reaction Past Psychological History: No Psychological Hx Reported Additional Psychological History / Comment(s): As of 03/20/22 Patient lives with his brother and nephew. He drives. Assists with meal prep and cleaning when he is able. Uses crutches to ambulate. Smoking Status: Former smoker Past Alcohol Use History: Rare Additional Past Alcohol Use History / Comment(s): Quit smoking 12/09/2006. Past Drug Use History: None Reported - Past Family History Father Family Medical History: Cancer Additional Family Medical History / Comment(s): . Mother History Unknown: Yes Family Medical History: Deep Vein Thrombosis (DVT) Medications and Allergies Home Medications Medication Instructions Recorded Confirmed Type Furosemide [Lasix] 40 mg PO DAILY 12/25/20 03/20/22 History Spironolactone [Aldactone] 25 mg PO DAILY 12/25/20 03/20/22 History Ergocalciferol [Vitamin D2 (1250 1,250 mcg PO FR 01/09/21 03/20/22 History Mcg = 11576 Iu)] Meloxicam 7.5 mg PO DAILY PRN 08/05/21 03/20/22 History Allergies Allergy/AdvReac Type Severity Reaction Status Date / Time No Known Allergies Allergy Verified 03/20/22 11:51 Physical Exam Osteopathic Statement: *. No significant issues noted on an osteopathic structural exam other than those noted in the History and Physical/Consult. Vitals: Vital Signs Temp Pulse Pulse Resp BP BP Pulse Ox 03/20/22 16:20 98 F 94 24 156/79 96 03/20/22 10:40 86 16 137/69 94 L 03/20/22 07:48 98.0 F 101 H 20 157/80 95 Intake and Output 03/20/22 03/20/22 03/20/22 06:59 14:59 22:59 Other: Weight 181.437 kg 181.437 kg Results CBC & Chem 7: 03/20/22 08:40 03/20/22 08:40 Labs: Abnormal Lab Results - Last 24 Hours (Table) 03/20/22 Range/Units 08:40 Creatinine 0.64 L (0.66-1.25) mg/dL Glucose 123 H (74-99) mg/dL Microbiology - Last 24 Hours (Table) 03/20/22 08:40 Group A Strep Throat Culture - Preliminary Throat Thrombosis Risk Factor Assmnt - Choose All That Apply Any of the Below Risk Factors Present?: Yes Each Factor Represents 1 point: Age 41-60 years, Obesity (BMI >25), Swollen legs (current) Other Risk Factors: No Other congenital or acquired thrombophilia - If yes, enter type in comment: No Thrombosis Risk Factor Assessment Total Risk Factor Score: 3 Thrombosis Risk Factor Assessment Level: Moderate Risk
[2022-03-20] MEDS: predniSONE 20 MG TAB PO SCH (18:32)
[2022-03-20] MEDS: SYMBICORT 80-4.5 MCG INHALER INHALATION SCH (19:30)
[2022-03-20] MEDS: IPRATROPIUM-ALBUTEROL 3 ML NEB INHALATION SCH (19:30)
[2022-03-20] MEDS: AZITHROMYCIN 500 MG TAB PO SCH (19:38)
[2022-03-20] MEDS: ACETAMINOPHEN TAB 325 MG TAB PO PRN (19:38)
[2022-03-20] MEDS: HEPARIN SODIUM,PORCINE/PF 5,000 UNIT/0.5 ML SYRINGE SQ SCH (23:13)
[2022-03-21] MEDS: ACETAMINOPHEN TAB 325 MG TAB PO PRN (06:00)
[2022-03-21 07:01] LABS: Basophils % (A) 0 %; Eosinophils % (A) 0 %; HGB 13.2 gm/dL (13.0-17.5); Lymphocytes # (A) 0.7 k/uL (1.0-4.8); Lymphocytes % (A) 8 %; MCH 26.5 pg (25.0-35.0); MCHC 30.7 g/dL (31.0-37.0); MCV 86.1 fL (80.0-100.0); Mean Platelet Volume 7.4; Monocytes # (A) 0.2 k/uL (0-1.0); Monocytes % (A) 2 %; Neutrophils # (A) 7.8 k/uL (1.3-7.7); Neutrophils % (A) 89 %; Platelet Count 278 k/uL (150-450); RBC 4.99 m/uL (4.30-5.90); RDW 14.7 % (11.5-15.5); WBC 8.8 k/uL (3.8-10.6)
[2022-03-21 07:13] LABS: African American GFR (CKD) >90 (>60 ml/min/1.73 sqM); Anion Gap 8 mmol/L; Blood Urea Nitrogen 12 mg/dL (9-20); Calcium 8.7 mg/dL (8.4-10.2); Carbon Dioxide 27 mmol/L (22-30); Chloride 105 mmol/L (98-107); Glucose 138 mg/dL (74-99); Non-African American GFR(CKD) >90 (>60 ml/min/1.73 sqM); Potassium 4.6 mmol/L (3.5-5.1); Sodium 140 mmol/L (137-145)
[2022-03-21] MEDS: predniSONE 20 MG TAB PO SCH (07:59)
[2022-03-21] MEDS: HEPARIN SODIUM,PORCINE/PF 5,000 UNIT/0.5 ML SYRINGE SQ SCH ×3 (07:59→23:29)
[2022-03-21] MEDS: IPRATROPIUM-ALBUTEROL 3 ML NEB INHALATION SCH ×4 (08:23→19:06)
[2022-03-21] MEDS: SYMBICORT 80-4.5 MCG INHALER INHALATION SCH ×2 (08:23→19:07)
--- NOTE | 2022-03-21 08:54 | P.CRDCN ---
History of Present Illness History of present illness: HISTORY OF PRESENTING ILLNESS Patient is a pleasant 56-year-old male with history of COPD, morbid obesity, obstructive sleep apnea, asthma, chronic lower extremity edema, severe LVH by prior ultrasound who presents secondary to shortness breath over the last year and a half as well as episode of chest pain. Patient states he has been doing with increasing shortness breath over the last year and a half and is fairly limited. He mainly attributes this to asthma and COPD as well as his obesity. He had a worsened episode of shortness breath and chest pain which felt like he could not take a deep breath and rales that would be more painful. He believes this is mainly related to asthma. He took some inhalers without much improvement and therefore came to the hospital. He has followed with cardiology in the past however no recent testing. He believes he had a stress test a few y ears ago which was normal. No history of heart catheterization. Not having any more chest pain unless he takes a deep breath in. Has never been diagnosed with hypertension however has been on diuretics more recently. Blood pressure mildly elevated on presentation however now back to controlled. He does admit to neuropathy and carpal tunnel syndrome. Denies any recent fevers, chills, cough. EKG shows normal sinus rhythm, RSR prime in V1 and V2, no significant ST or T- wave abnormalities. Blood work shows troponin negative 1, proBNP 49. Patient was placed on antibiotics, inhalers, steroids. He admits that his lower extremity edema is somewhat better today even though he did not receive any diuretics from keeping his legs elevated. REVIEW OF SYSTEMS At the time of my exam: CONSTITUTIONAL: Denies fever or chills. CARDIOVASCULAR: +chest pain, +shortness of breath, + chronic orthopnea, no PND or palpitations. + chronic edema RESPIRATORY: Denies cough. GASTROINTESTINAL: Denies abdominal pain, diarrhea, constipation, nausea or vomiting. MUSCULOSKELETAL: Denies myalgias. NEUROLOGIC: Denies numbness, tingling or weakness. ENDOCRINE: Denies fatigue, weight change, polydipsia or polyurina. GENITOURINARY: Denies burning, hematuria or urgency with micturation. HEMATOLOGIC: Denies history of anemia or bleeding. PHYSICAL EXAMINATION Vital signs reviewed. CONSTITUTIONAL: No apparent distress, chronically ill-appearing, morbidly obese HEENT: Head is normocephalic. Pupils are equal, round. Sclerae anicteric. Mucous membranes of the mouth are moist. No JVD. No carotid bruit. CHEST EXAMINATION: +mild wheeze, No chest wall tenderness is noted on palpation or with deep breathing. HEART EXAMINATION: Regular rate and rhythm. S1, S2 heard. No murmurs, gallops or rub. ABDOMEN: Soft, nontender. Positive bowel sounds. EXTREMITIES: 2+ peripheral pulses, 3+ lower extremity edema with chronic venous stasis changes and no calf tenderness. NEUROLOGIC EXAMINATION: Patient is awake, alert and oriented x3. ASSESSMENT 1. Atypical chest pain appears more pleuritic troponin normal, acute cores rule out 2. Acute on chronic respiratory failure appears mainly related to asthma exacer bation/COPD, obesity hypoventilation syndrome 3. Severe left ventricular hypertrophy noted on prior echo 4. Chronic lower extremity edema appears mainly related to venous insufficiency. Currently somewhat improved after keeping legs elevated overnight 5. Questionable component of diastolic heart failure with severe LVH noted on prior echo and some lower extremity edema however normal proBNP PLAN Patient with atypical chest pain which appears more related to asthma exacerbation and more pleuritic with troponin normal and EKG unrevealing. We will check 2-D echo to evaluate for left ventricular function as well as degree of left ventricular hypertrophy. There is always a consideration of possible infiltrative disease with patient denying any significant hypertension and prior echo with septal thickness of 1.8 cm. Always consideration of amyloidosis with additional neuropathy and carpal tunnel syndrome. Check 2-D echo to further evaluate. Continue with home diuretics however majority of shortness breath appears related to pulmonary source. Monitor ins and outs. Further recomm endations to follow. Past Medical History Past Medical History: Asthma, COPD, Osteoarthritis (OA), Sleep Apnea/CPAP/BIPAP Additional Past Medical History / Comment(s): was ordered a CPAP, does not use it.. Arthritic knees/hands History of Any Multi-Drug Resistant Organisms: None Reported Past Surgical History: Adenoidectomy, Appendectomy, Orthopedic Surgery, Tonsillectomy Additional Past Surgical History / Comment(s): Bilateral knee arthroscopy, surgery for sleep apnea - uvula and adenoids removed, carpal tunnel surgery, right shoulder surgery. Past Anesthesia/Blood Transfusion Reactions: No Reported Reaction Past Psychological History: No Psychological Hx Reported Additional Psychological History / Comment(s): As of 03/20/22 Patient lives with his brother and nephew. He drives. Assists with meal prep and cleaning when he is able. Uses crutches to ambulate. Smoking Status: Former smoker Past Alcohol Use History: Rare Additional Past Alcohol Use History / Comment(s): Quit smoking 12/09/2006. Past Drug Use History: None Reported - Past Family History Father Family Medical History: Cancer Additional Family Medical History / Comment(s): . Mother History Unknown: Yes Family Medical History: Deep Vein Thrombosis (DVT) Medications and Allergies Home Medications Medication Instructions Recorded Confirmed Type Furosemide [Lasix] 40 mg PO DAILY 12/25/20 03/20/22 History Spironolactone [Aldactone] 25 mg PO DAILY 12/25/20 03/20/22 History Ergocalciferol [Vitamin D2 (1250 1,250 mcg PO FR 01/09/21 03/20/22 History Mcg = 33598 Iu)] Meloxicam 7.5 mg PO DAILY PRN 08/05/21 03/20/22 History Allergies Allergy/AdvReac Type Severity Reaction Status Date / Time No Known Allergies Allergy Verified 03/20/22 11:51 Physical Exam Vitals: Vital Signs Temp Pulse Pulse Resp BP BP Pulse Ox 03/21/22 08:37 88 03/21/22 08:24 88 03/21/22 07:00 98.0 F 93 18 116/74 97 03/21/22 01:35 97.7 F 98 20 144/74 96 03/20/22 19:40 92 03/20/22 19:30 89 03/20/22 18:58 98.1 F 95 18 133/77 96 03/20/22 16:20 98 F 94 24 156/79 96 03/20/22 10:40 86 16 137/69 94 L Intake and Output 03/20/22 03/21/22 03/21/22 22:59 06:59 14:59 Intake Total 118 Output Total 600 2350 Balance -482 -2350 Intake: Oral 118 Output: Urine 600 2350 Other: Voiding Method Urinal # Voids 1 Weight 181.437 kg Results 03/21/22 06:33 03/21/22 06:33 Cardiac Enzymes 03/20/22 03/20/22 Range/Units 08:40 08:40 AST 29 (17-59) U/L Troponin I <0.012 (0.000-0.034) ng/mL Coagulation 03/20/22 Range/Units 08:40 PT 10.1 (9.0-12.0) sec APTT 25.6 (22.0-30.0) sec CBC 03/20/22 03/21/22 Range/Units 08:40 06:33 WBC 8.4 8.8 (3.8-10.6) k/uL RBC 4.91 4.99 (4.30-5.90) m/uL Hgb 13.2 13.2 (13.0-17.5) gm/dL Hct 42.0 43.0 (39.0-53.0) % Plt Count 263 278 (150-450) k/uL Comprehensive Metabolic Panel 03/20/22 03/21/22 Range/Units 08:40 06:33 Sodium 138 140 (137-145) mmol/L Potassium 4.3 4.6 (3.5-5.1) mmol/L Chloride 101 105 (98-107) mmol/L Carbon Dioxide 30 27 (22-30) mmol/L BUN 12 12 (9-20) mg/dL Creatinine 0.64 L 0.65 L (0.66-1.25) mg/dL Glucose 123 H 138 H (74-99) mg/dL Calcium 8.8 8.7 (8.4-10.2) mg/dL AST 29 (17-59) U/L ALT 19 (4-49) U/L Alkaline Phosphatase 82 (38-126) U/L Total Protein 6.5 (6.3-8.2) g/dL Albumin 3.9 (3.5-5.0) g/dL Current Medications Generic Name Dose Route Start Last Admin Trade Name Freq PRN Reason Stop Dose Admin Acetaminophen 650 mg 03/20/22 17:45 03/21/22 06:00 Acetaminophen Tab 325 Mg Tab PO 650 mg Q6HR PRN Administration Mild Pain Albuterol Sulfate 2.5 mg 03/20/22 17:45 Albuterol Nebulized 2.5 Mg/3 Ml INHALATION RT-Q2H PRN Difficulty Breathing Albuterol/Ipratropium 3 ml 03/20/22 20:00 03/21/22 08:23 Ipratropium-Albuterol 3 Ml Neb INHALATION 3 ml RT-QID TAMELA Administration Azithromycin 500 mg 03/20/22 17:00 03/20/22 19:38 Azithromycin 500 Mg Tab PO 03/23/22 17:01 500 mg DAILY@1700 TAMELA Administration Protocol Budesonide/Formoterol Fumarate 2 puff 03/20/22 20:00 03/21/22 08:23 Symbicort 80-4.5 Mcg Inhaler INHALATION 2 puff RT-BID TAMELA Administration Heparin Sodium (Porcine) 7,500 unit 03/21/22 00:00 03/21/22 07:59 Heparin Sodium,Porcine/Pf 5,000 Unit/0.5 Ml Syringe SQ 7,500 unit Q8HR TAMELA Administration Naloxone HCl 0.2 mg 03/20/22 17:45 Naloxone 0.4 Mg/Ml 1 Ml Vial IVP Q2M PRN Opioid Reversal Prednisone 40 mg 03/20/22 18:00 03/21/22 07:59 Prednisone 20 Mg Tab PO 03/24/22 09:01 40 mg DAILY TAMELA Administration Intake and Output 03/20/22 03/21/22 03/21/22 22:59 06:59 14:59 Intake Total 118 Output Total 600 2350 Balance -482 -2350 Intake: Oral 118 Output: Urine 600 2350 Other: Voiding Method Urinal # Voids 1 Weight 181.437 kg 03/21/22 06:33 03/21/22 06:33
[2022-03-21] MEDS: FUROSEMIDE 10 MG/ML 4 ML VIAL IV SCH ×2 (09:31→21:11)
--- NOTE | 2022-03-21 11:27 | P.CONS ---
History of Present Illness - Reason for Consult Consult date: 03/21/22 wound care - History of Present Illness This is a 56-year-old patient with history of lymphedema. Being seen by the wound care center for nonhealing ulcerations. At this time patient has no open ulceration, does have lymphedema to bilateral lower extremities and erythema to bilateral feet. Patient states that he has of fungus infection to the foot that he does not treat at home. Review Of Systems: Constitutional: No fever, no chills, no night sweats. No weight change. No weakness, fatigue or lethargy. No daytime sleepiness. Integumentary:reports wounds, no lesions. No rash or pruritus. No unusual bruising. No change in hair or nails. Physical exam: General Appearance: Alert, cooperative, no distress, appears stated age. Skin: See HPI all other Skin color, texture, tugor normal, no rashes or lesions. Neurologic: Alert oriented x3 Assessment: 1. Lymphedema 2. Fungal infection bilateral feet Plan: 1. Kobe wrap to bilateral lower extremities, elevate legs 30 minutes 3 times a day as tolerated. clotrimazole BID to demarcus feet. Thank you for the consultation any questions please contact the wound care center DNP note has been reviewed and discussed with Dr. Thapa and the impression and plan of care has been directed as dictated. Past Medical History Past Medical History: Asthma, COPD, Osteoarthritis (OA), Sleep Apnea/CPAP/BIPAP Additional Past Medical History / Comment(s): was ordered a CPAP, does not use it.. Arthritic knees/hands History of Any Multi-Drug Resistant Organisms: None Reported Past Surgical History: Adenoidectomy, Appendectomy, Orthopedic Surgery, Tonsil lectomy Additional Past Surgical History / Comment(s): Bilateral knee arthroscopy, surgery for sleep apnea - uvula and adenoids removed, carpal tunnel surgery, right shoulder surgery. Past Anesthesia/Blood Transfusion Reactions: No Reported Reaction Past Psychological History: No Psychological Hx Reported Additional Psychological History / Comment(s): As of 03/20/22 Patient lives with his brother and nephew. He drives. Assists with meal prep and cleaning when he is able. Uses crutches to ambulate. Smoking Status: Former smoker Past Alcohol Use History: Rare Additional Past Alcohol Use History / Comment(s): Quit smoking 12/09/2006. Past Drug Use History: None Reported - Past Family History Father Family Medical History: Cancer Additional Family Medical History / Comment(s): . Mother History Unknown: Yes Family Medical History: Deep Vein Thrombosis (DVT) Medications and Allergies Home Medications Medication Instructions Recorded Confirmed Type Furosemide [Lasix] 40 mg PO DAILY 12/25/20 03/20/22 History Spironolactone [Aldactone] 25 mg PO DAILY 12/25/20 03/20/22 History Ergocalciferol [Vitamin D2 (1250 1,250 mcg PO FR 01/09/21 03/20/22 History Mcg = 08144 Iu)] Meloxicam 7.5 mg PO DAILY PRN 08/05/21 03/20/22 History Allergies Allergy/AdvReac Type Severity Reaction Status Date / Time No Known Allergies Allergy Verified 03/20/22 11:51 Physical Exam Vitals: Vital Signs Temp Pulse Pulse Resp BP Pulse Ox 03/21/22 08:37 88 03/21/22 08:24 88 03/21/22 07:00 98.0 F 93 18 116/74 97 03/21/22 01:35 97.7 F 98 20 144/74 96 03/20/22 19:40 92 03/20/22 19:30 89 03/20/22 18:58 98.1 F 95 18 133/77 96 03/20/22 16:20 98 F 94 24 156/79 96 Intake and Output 03/20/22 03/21/22 03/21/22 22:59 06:59 14:59 Intake Total 118 Output Total 600 2350 1475 Balance -482 2350 -1473 Intake: Oral 118 Output: Urine 600 2350 1475 Other: Voiding Method Urinal # Voids 1 Weight 181.437 kg Results CBC & Chem 7: 03/21/22 06:33 03/21/22 06:33 Labs: Abnormal Lab Results - Last 24 Hours (Table) 03/21/22 03/21/22 Range/Units 06:33 06:33 MCHC 30.7 L (31.0-37.0) g/dL Neutrophils # 7.8 H (1.3-7.7) k/uL Lymphocytes # 0.7 L (1.0-4.8) k/uL Creatinine 0.65 L (0.66-1.25) mg/dL Glucose 138 H (74-99) mg/dL Microbiology - Last 24 Hours (Table) 03/20/22 08:40 Group A Strep Throat Culture - Preliminary Throat Assessment and Plan (1) Lymphedema associated with obesity Current Visit: Yes Status: Acute Code(s): I89.0 - LYMPHEDEMA, NOT ELSEWHERE CLASSIFIED; E66.9 - OBESITY, UNSPECIFIED SNOMED Code(s): 702976570 (2) Fungal infection of foot Current Visit: Yes Status: Acute Code(s): B35.3 - TINEA PEDIS SNOMED Code(s): 8810906
[2022-03-21] MEDS: CLOTRIMAZOLE 1% CREAM 30 GM TUBE TOPICAL SCH ×2 (12:48→21:28)
--- NOTE | 2022-03-21 14:05 | P.PN ---
Subjective Progress Note Date: 03/21/22 No new complaints today. Still dyspneic on exertion. Gen: awake, alert HEENT: normocephalic, atraumatic, good hearing acuity, moist mucous membranes Resp: good air exchange, breathing comfortably with no accessory muscle use, and expiratory wheezing diffusely CVS: good distal perfusion x 4, regular rate and rhythm without murmurs GI: soft, NTTP, ND : no SPT, no CVAT, worley catheter not present MSK: Trace pitting edema, bilateral lymphedema with woody dermatitis changes, no clubbing Neuro: non-focal, moving all extremities Psych: cooperative, euthymic mood Labs and imaging reviewed as above Assessment/plan: COPD exacerbation, acute -Admit to observation, telemetry -duonebs + albuterol PRN -azithromycin -symbicort -Prednisone Chest Pain, atypical -Trend troponins -Cardiology consult -EKG/nitro when necessary -Echo Obesity, class III Lymphedema -Weight loss referral outpatient -Wound care for lymphedema treatment Obstructive sleep apnea -CPAP at night Patient is full code DVT prophylaxis with heparin 3 times a day, increase dose to 7500 due to weight Objective - Vital Signs Vital signs: Vital Signs Temp 98.3 F 03/21/22 13:55 Pulse 106 H 03/21/22 13:55 Resp 16 03/21/22 13:55 BP 121/67 03/21/22 13:55 Pulse Ox 93 L 03/21/22 13:55 Intake & Output 03/20/22 03/21/22 03/21/22 18:59 06:59 18:59 Intake Total 118 240 Output Total 300 2650 1475 Balance -182 2650 -1235 Weight 181.437 kg Intake: Oral 118 240 Output: Urine 300 2650 1475 Other: Voiding Method Urinal # Voids 1 4 - Labs CBC & Chem 7: 03/21/22 06:33 03/21/22 06:33 Labs: Abnormal Lab Results - Last 24 Hours (Table) 03/21/22 03/21/22 Range/Units 06:33 06:33 MCHC 30.7 L (31.0-37.0) g/dL Neutrophils # 7.8 H (1.3-7.7) k/uL Lymphocytes # 0.7 L (1.0-4.8) k/uL Creatinine 0.65 L (0.66-1.25) mg/dL Glucose 138 H (74-99) mg/dL Microbiology - Last 24 Hours (Table) 03/20/22 08:40 Group A Strep Throat Culture - Preliminary Throat
[2022-03-21] MEDS: AZITHROMYCIN 500 MG TAB PO SCH (17:21)
[2022-03-21 20:03] VITALS: RESP 20
[2022-03-22 07:27] VITALS: BP 108/68; TEMP 97
[2022-03-22] MEDS: SYMBICORT 80-4.5 MCG INHALER INHALATION SCH (08:52)
[2022-03-22] MEDS: IPRATROPIUM-ALBUTEROL 3 ML NEB INHALATION SCH ×2 (08:52→11:39)
[2022-03-22] MEDS: predniSONE 20 MG TAB PO SCH (08:55)
[2022-03-22] MEDS: FUROSEMIDE 10 MG/ML 4 ML VIAL IV SCH (08:55)
[2022-03-22] MEDS: HEPARIN SODIUM,PORCINE/PF 5,000 UNIT/0.5 ML SYRINGE SQ SCH (08:55)
[2022-03-22] MEDS: CLOTRIMAZOLE 1% CREAM 30 GM TUBE TOPICAL SCH (08:56)
--- NOTE | 2022-03-22 09:55 | P.PN ---
Subjective HISTORY OF PRESENTING ILLNESS Patient is a pleasant 56-year-old male with history of COPD, morbid obesity, obstructive sleep apnea, asthma, chronic lower extremity edema, severe LVH by prior ultrasound who presents secondary to shortness breath over the last year and a half as well as episode of chest pain. Patient states he has been doing with increasing shortness breath over the last year and a half and is fairly limited. He mainly attributes this to asthma and COPD as well as his obesity. He had a worsened episode of shortness breath and chest pain which felt like he could not take a deep breath and rales that would be more painful. He believes this is mainly related to asthma. He took some inhalers without much improvement and therefore came to the hospital. He has followed with cardiology in the past however no recent testing. He believes he had a stress test a few years ago which was normal. No history of heart catheterization. Not having any more chest pain unless he takes a deep breath in. Has never been diagnosed with hypertension however has been on diuretics more recently. Blood pressure mildly elevated on presentation however now back to controlled. He does admit to neuropathy and carpal tunnel syndrome. Denies any recent fevers, chills, cough. EKG shows normal sinus rhythm, RSR prime in V1 and V2, no significant ST or T-wave abnormalities. Blood work shows troponin negative 1, proBNP 49. Patient was placed on antibiotics, inhalers, steroids. He admits that his lower extremity edema is somewhat better today even though he did not receive any diuretics from keeping his legs elevated. 03/22 seen and examined. Patient believes his shortness breath is somewhat improving. Denies any further chest pain or pressure. Believes his lower extremity edema is mildly improved. Has been urinating much more with the IV Lasix. PHYSICAL EXAMINATION Vital signs reviewed. CONSTITUTIONAL: No apparent distress, chronically ill-appearing, morbidly obese HEENT: Head is normocephalic. Pupils are equal, round. Sclerae anicteric. Mucous membranes of the mouth are moist. No JVD. No carotid bruit. CHEST EXAMINATION: +mild wheeze, No chest wall tenderness is noted on palpation or with deep breathing. HEART EXAMINATION: Regular rate and rhythm. S1, S2 heard. No murmurs, gallops or rub. ABDOMEN: Soft, nontender. Positive bowel sounds. EXTREMITIES: 2+ peripheral pulses, 3+ lower extremity edema with chronic venous stasis changes and no calf tenderness. NEUROLOGIC EXAMINATION: Patient is awake, alert and oriented x3. ASSESSMENT 1. Atypical chest pain appears more pleuritic troponin normal, acute cores rule out 2. Acute on chronic respiratory failure appears mainly related to asthma exac erbation/COPD, obesity hypoventilation syndrome 3. Severe left ventricular hypertrophy noted on prior echo 4. Chronic lower extremity edema appears mainly related to venous insufficiency. Currently somewhat improved after keeping legs elevated overnight 5. Questionable component of diastolic heart failure with severe LVH noted on prior echo and some lower extremity edema however normal proBNP PLAN Patient with atypical chest pain which appears more related to asthma exacerbation and more pleuritic with troponin normal and EKG unrevealing. Await 2-D echo to evaluate for left ventricular function as well as degree of left ventricular hypertrophy. There is always a consideration of possible infiltrative disease with patient denying any significant hypertension and prior echo with septal thickness of 1.8 cm. Always consideration of amyloidosis with additional neuropathy and carpal tunnel syndrome. In the with IV diuretics and monitor response. Hopefully is 1 more day of IV diuresis and possible home in next 24-48 hours. Monitor ins and outs. Further recommendations to follow. Objective - Vital Signs Vital signs: Vital Signs Temp 97 F L 03/22/22 07:00 Pulse 88 03/22/22 09:03 Resp 20 03/22/22 07:00 BP 108/68 03/22/22 07:00 Pulse Ox 93 L 03/22/22 07:00 Intake & Output 03/21/22 03/22/22 03/22/22 18:59 06:59 18:59 Intake Total 480 Output Total 1475 4100 850 Balance -99 -0158 -850 Intake: Oral 480 Output: Urine 1475 4100 850 Other: Voiding Method Urinal # Voids 4 - Labs CBC & Chem 7: 03/21/22 06:33 03/21/22 06:33
[2022-03-22 11:52] VITALS: PULSE 88
--- NOTE | 2022-03-22 13:56 | P.DS ---
Providers Date of admission: 03/20/22 11:23 Expected date of discharge: 03/22/22 Attending physician: Miguel Ángel Hood MD Consults: 03/20/22 11:23 Consult Physician Urgent Consulting Provider: [facility] Consult Reason/Comments: Chest pain Do you want consulting provider notified?: Yes Primary care physician: [facility] Hospital Course: 56-year-old man with medical history of COPD, obesity class III, obstructive sleep apnea who presented with shortness of breath. In the emergency room, patient is afebrile, 157/80, heart rate 101, 95% on room air. CBC, chemistries, LFTs are unremarkable. Initial troponin was less than 0.012. BNP was 49. Lactic acid was 1.0. Covid was negative. Group A strep was negative. Coags are unremarkable. Chest x-ray demonstrates cardiomegaly without acute pulmonary process. EKG demonstrates normal sinus rhythm with pulmonary hypertension pattern. COPD exacerbation, acute -Admitted to observation, telemetry. Treated with duonebs + albuterol PRN, azithromycin, and prednisone. Recovered to room air and dyspnea improved. Discharged with PCP f/u, and new medications for symbicort, albuterol PRN, and 3 more day of prednisone. -azithromycin -symbicort -Prednisone Chest Pain, atypical -Trended troponins. Cardiology consulted. ACS ruled out. Obesity, class III Lymphedema -Weight loss referral outpatient. Wound care for lymphedema treatment; they recommended mike wraps. Obstructive sleep apnea -CPAP at night, continue as outpatient. Gen: awake, alert HEENT: normocephalic, atraumatic, good hearing acuity, moist mucous membranes Resp: good air exchange, breathing comfortably with no accessory muscle use, and expiratory wheezing diffusely CVS: good distal perfusion x 4, regular rate and rhythm without murmurs GI: soft, NTTP, ND : no SPT, no CVAT, worley catheter not present MSK: Trace pitting edema, bilateral lymphedema with woody dermatitis changes, no clubbing Neuro: non-focal, moving all extremities Psych: cooperative, euthymic mood Patient Condition at Discharge: Good Plan - Discharge Summary Discharge Rx Participant: No New Discharge Prescriptions: New predniSONE [Deltasone] 40 mg PO DAILY #6 tab Albuterol Sulfate [Albuterol Sulfate Hfa] 1 puff PO Q4-6H #8.5 gm Budesonide/Formoterol Fumarate [Symbicort 80-4.5 Mcg Inhaler] 1 puff INHALATION BID #10.2 gm Continue Spironolactone [Aldactone] 25 mg PO DAILY Furosemide [Lasix] 40 mg PO DAILY Ergocalciferol [Vitamin D2 (1250 Mcg = 33872 Iu)] 1,250 mcg PO FR Meloxicam 7.5 mg PO DAILY PRN PRN Reason: Pain Discharge Medication List Furosemide [Lasix] 40 mg PO DAILY 12/25/20 [History] Spironolactone [Aldactone] 25 mg PO DAILY 12/25/20 [History] Ergocalciferol [Vitamin D2 (1250 Mcg = 61730 Iu)] 1,250 mcg PO FR 01/09/21 [History] Meloxicam 7.5 mg PO DAILY PRN 08/05/21 [History] Albuterol Sulfate [Albuterol Sulfate Hfa] 1 puff PO Q4-6H #8.5 gm 03/22/22 [Rx] Budesonide/Formoterol Fumarate [Symbicort 80-4.5 Mcg Inhaler] 1 puff INHALATION BID #10.2 gm 03/22/22 [Rx] predniSONE [Deltasone] 40 mg PO DAILY #6 tab 03/22/22 [Rx] Follow up Appointment(s)/Referral(s): Alfredo Hope DO [Primary Care Provider] - 1-2 days Discharge Disposition: HOME SELF-CARE
--- NOTE | 2022-03-24 12:50 | CA ---
Transthoracic Echo Report Name: Alfredo Rosas Age: 56 Gender: M : 1965 Exam Date: 03/21/2022 10:50 Exam Location: [place] [facility] Ht (in): 69 Wt (lb): 400 Ordering Physician: Coral Phillips MD Attending/Referring Phys: [employer] Alis England RDCS Procedure CPT: Indications: atypical chest pain Cardiac Hx: MORBID OBESITY Technical Quality: Contrast 1: N/A Total Dose (mL): Contrast 2: Total Dose (mL): MEASUREMENTS (Male / Female) Normal Values 2D ECHO LV Diastolic Diameter PLAX 5.3 cm 4.2 - 5.9 / 3.9 - 5.3 cm LV Systolic Diameter PLAX 4.0 cm IVS Diastolic Thickness 1.8 cm 0.6 - 1.0 / 0.6 - 0.9 cm LVPW Diastolic Thickness 2.3 cm 0.6 - 1.0 / 0.6 - 0.9 cm LV Relative Wall Thickness 0.8 RV Internal Dim ED PLAX 3.2 cm M-MODE Aortic Root Diameter MM 3.3 cm LA Systolic Diameter MM 4.3 cm LA Ao Ratio MM 1.3 FINDINGS Left Ventricle Severely increased septal wall thickness. Left ventricular ejection fraction is estimated at 50-55%. Right Ventricle Normal right ventricular size and function. Right Atrium Right atrium not well visualized. Left Atrium Mild left atrial dilatation. Mitral Valve Mild mitral regurgitation. Aortic Valve Aortic valve not well visualized. Tricuspid Valve Tricuspid valve not well visualized. Pulmonic Valve Pulmonic valve not well visualized. Pericardium Echo free space anterior to the right ventricle likely represents a fat pad. Aorta Normal size aortic root and proximal ascending aorta. CONCLUSIONS Low normal left ventricular ejection fraction 50-55%. Severe LVH. Mild mitral regurgitation. No pericardial effusion. Previewed by: Dr. Rajinder Alexis DO (Electronically Signed) Final Date: 22 Mar 2022 08:23
== END 2022-03-22 14:20 | disposition home or self-care (01) ==
LOC: EC 02:47 → 6NMEDSUR 11:23
PROVIDERS: ADMIT Family Medicine; ATTEND Family Medicine
DX: R07.89 Other chest pain (principal); J44.1 Chronic obstructive pulmonary disease with (acute) exacerbation; J45.901 Unspecified asthma with (acute) exacerbation; J96.20 Acute and chronic respiratory failure, unspecified whether with hypoxia or hypercapnia; E66.2 Morbid (severe) obesity with alveolar hypoventilation; Z68.43 Body mass index [BMI] 50.0-59.9, adult; I89.0 Lymphedema, not elsewhere classified; I34.0 Nonrheumatic mitral (valve) insufficiency; I51.7 Cardiomegaly; M17.0 Bilateral primary osteoarthritis of knee; M19.042 Primary osteoarthritis, left hand; M19.041 Primary osteoarthritis, right hand; G56.00 Carpal tunnel syndrome, unspecified upper limb; L03.116 Cellulitis of left lower limb; L03.115 Cellulitis of right lower limb; G62.9 Polyneuropathy, unspecified; I87.2 Venous insufficiency (chronic) (peripheral); I87.8 Other specified disorders of veins; B35.3 Tinea pedis; Z79.1 Long term (current) use of non-steroidal anti-inflammatories (NSAID); Z79.899 Other long term (current) drug therapy; Z20.822 Contact with and (suspected) exposure to COVID-19; Z90.49 Acquired absence of other specified parts of digestive tract; Z87.891 Personal history of nicotine dependence; Z87.2 Personal history of diseases of the skin and subcutaneous tissue; Z98.890 Other specified postprocedural states; Z71.3 Dietary counseling and surveillance; Z82.49 Family history of ischemic heart disease and other diseases of the circulatory system; Z80.9 Family history of malignant neoplasm, unspecified
CPT/HCPCS: 96376 ×2; 96361 ×3; 96372 ×3; 96374; 99285; 36415; 94640 ×5; 93005; 93306; 83880; 80053; 80048; 83605; 83735 ×2; 84484; 85025 ×2; 85610; 85730; 87081; 87430; 87635; 71046; G0378 ×3; J1940 ×2; J7512 ×3; J1644 ×3

== ENCOUNTER → 2022-06-24 | Outpatient (CLI) | payer OTHER ==
[2022-06-24 15:45] LABS: ALT 21 U/L (10-49); AST 17 U/L (14-35); African American GFR (CKD) 117.4 (60.0-200.0); Albumin 4.3 g/dL (3.8-4.9); Albumin/Globulin Ratio 1.95 (1.60-3.17); Alkaline Phosphatase 94 U/L (41-126); Amylase 71 U/L (23-121); BUN/Creat Ratio 17.88 Ratio (12.00-20.00); Blood Urea Nitrogen 14.3 mg/dL (9.0-27.0); Calcium 9.3 mg/dL (8.7-10.3); Carbon Dioxide 28.1 mmol/L (20.0-27.5); Chloride 100 mmol/L (96-109); Chol/HDL Ratio 3.44 Ratio; Globulin 2.2 g/dL (1.6-3.3); Glucose 135 mg/dL (70-110); LDL Cholesterol,Calculated 74.3 mg/dL (0.0-131.0); Lipase 95 U/L (14-60); Non-African American GFR(CKD) 101.3 (60.0-200.0); Potassium 4.8 mmol/L (3.5-5.5); Sodium 140 mmol/L (135-145); Total Protein 6.5 g/dL (6.2-8.2)
[2022-06-24 18:10] LABS: Appearance,Urine Cloudy (Clear); Bilirubin,Urine Negative (Negative); Blood,Urine Negative (Negative); Color,Urine Yellow (Yellow); Ketones,Urine Negative (Negative); Nitrite,Urine Negative (Negative); Specific Gravity,Urine 1.024 (1.001-1.030); Urobilinogen,Urine 0.2 (0.2,1.0)
[2022-06-24 18:16] LABS: Bacteria,Urine None Seen /HPF (None Seen)
[2022-06-25 10:54] LABS: HCT 42.9 % (39.6-50.0); HGB 13.4 g/dL (13.0-17.0); MCH 26.7 pg (27.0-32.0); MCHC 31.2 g/dL (32.0-37.0); MCV 85.5 fL (80.0-97.0); Mean Platelet Volume 10.4 fL (9.5-12.2); NRBC Per 100 WBC 0 /100 WBCS (0.0-0.0); Platelet Count 300 X 10*3/uL (140-440); RBC 5.02 X 10*6/uL (4.40-5.60); RDW 14.4 % (11.5-14.5); WBC 7.98 X 10*3/uL (4.50-10.00)
== END | disposition home or self-care (01) ==
LOC: LABWHC1 08:23
PROVIDERS: ATTEND Family Medicine
DX: Z00.00 Encounter for general adult medical examination without abnormal findings (principal); E66.01 Morbid (severe) obesity due to excess calories; R10.32 Left lower quadrant pain
CPT/HCPCS: 36415; 80053; 80061; 81001; 82150; 82306; 83036; 83690; 84153; 84443; 85027

== ENCOUNTER 2022-07-07 05:53 | Observation (INO) | payer OTHER ==
--- NOTE | 2022-07-07 06:53 | ED ---
General Adult HPI - General Stated complaint: SURYA Time Seen by Provider: 07/07/22 06:10 Source: patient, RN notes reviewed Mode of arrival: ambulatory Limitations: no limitations - History of Present Illness Initial comments: 56-year-old male presents emergency Department with chief complaint of shortness of breath, chest discomfort. Patient states that overnight. Patient states it does have history of asthma states she has slight cough but states he has pressure, pain across his anterior chest. No fevers or chills. Denies any nausea vomiting patient has chronic leg swelling that worsened usual. Patient states he felt strange and sore from this. Patient denies any prior cardiac stents. Patient denies hypertension hyperlipidemia diabetes medications. - Related Data Home Medications Medication Instructions Recorded Confirmed Furosemide [Lasix] 40 mg PO DAILY 12/25/20 03/20/22 Spironolactone [Aldactone] 25 mg PO DAILY 12/25/20 03/20/22 Ergocalciferol [Vitamin D2 (1250 1,250 mcg PO FR 01/09/21 03/20/22 Mcg = 65043 Iu)] Meloxicam 7.5 mg PO DAILY PRN 08/05/21 03/20/22 Previous Rx's Medication Instructions Recorded Albuterol Sulfate [Albuterol 1 puff PO Q4-6H #8.5 gm 03/22/22 Sulfate Hfa] Budesonide/Formoterol Fumarate 1 puff INHALATION BID #10.2 gm 03/22/22 [Symbicort 80-4.5 Mcg Inhaler] predniSONE [Deltasone] 40 mg PO DAILY #6 tab 03/22/22 Allergies Allergy/AdvReac Type Severity Reaction Status Date / Time No Known Allergies Allergy Verified 07/07/22 06:51 Review of Systems ROS Statement: Those systems with pertinent positive or pertinent negative responses have been documented in the HPI. ROS Other: All systems not noted in ROS Statement are negative. Past Medical History Past Medical History: Asthma, COPD, Osteoarthritis (OA), Sleep Apnea/CPAP/BIPAP Additional Past Medical History / Comment(s): was ordered a CPAP, does not use it.. Arthritic knees/hands History of Any Multi-Drug Resistant Organisms: None Reported Past Surgical History: Adenoidectomy, Appendectomy, Orthopedic Surgery, Tonsillectomy Additional Past Surgical History / Comment(s): Bilateral knee arthroscopy, surgery for sleep apnea - uvula and adenoids removed, carpal tunnel surgery, right shoulder surgery. Past Anesthesia/Blood Transfusion Reactions: No Reported Reaction Past Psychological History: No Psychological Hx Reported Additional Psychological History / Comment(s): As of 03/20/22 Patient lives with his brother and nephew. He drives. Assists with meal prep and cleaning when he is able. Uses crutches to ambulate. Smoking Status: Former smoker Past Alcohol Use History: Rare Additional Past Alcohol Use History / Comment(s): Quit smoking 12/09/2006. Past Drug Use History: None Reported - Past Family History Father Family Medical History: Cancer Additional Family Medical History / Comment(s): . Mother History Unknown: Yes Family Medical History: Deep Vein Thrombosis (DVT) General Exam General appearance: alert, in no apparent distress, obese Head exam: Present: atraumatic, normocephalic, normal inspection Eye exam: Present: normal appearance, PERRL, EOMI. Absent: scleral icterus, conjunctival injection, periorbital swelling ENT exam: Present: normal exam, mucous membranes moist Neck exam: Present: normal inspection, full ROM. Absent: tenderness, mening ismus, lymphadenopathy Respiratory exam: Present: normal lung sounds bilaterally. Absent: respiratory distress, wheezes, rales, rhonchi, stridor Cardiovascular Exam: Present: regular rate, normal rhythm, normal heart sounds. Absent: systolic murmur, diastolic murmur, rubs, gallop, clicks Extremities exam: Present: pedal edema Neurological exam: Present: alert Skin exam: Present: warm, dry, intact, normal color. Absent: rash Course Vital Signs 07/07/22 07/07/22 06:46 08:14 Temperature 98 F 97.9 F Pulse Rate 99 94 Respiratory 18 18 Rate Blood Pressure 123/63 123/66 O2 Sat by Pulse 98 97 Oximetry EKG Findings - EKG Comments: EKG Findings:: EKG performed at 6:46 sinus rhythm with rate of 99 IN 178 QRS 128 QT/QTC 360/416 Medical Decision Making - Medical Decision Making 56-year-old male presented for shortness with chest pain. Patient's initial labs are unremarkable. Patient chest x-ray shows cardiomegaly. Patient admitted for cardiac rule out. - Lab Data Result diagrams: 07/07/22 06:30 08/30/22 06:30 Lab Results 07/07/22 07/07/22 07/07/22 Range/Units 06:30 06:30 06:30 WBC 9.9 (3.8-10.6) k/uL RBC 5.02 (4.30-5.90) m/uL Hgb 13.1 (13.0-17.5) gm/dL Hct 41.9 (39.0-53.0) % MCV 83.5 (80.0-100.0) fL MCH 26.1 (25.0-35.0) pg MCHC 31.3 (31.0-37.0) g/dL RDW 14.4 (11.5-15.5) % Plt Count 320 (150-450) k/uL MPV 7.1 Neutrophils % 81 % Lymphocytes % 10 % Monocytes % 5 % Eosinophils % 2 % Basophils % 1 % Neutrophils # 8.0 H (1.3-7.7) k/uL Lymphocytes # 1.0 (1.0-4.8) k/uL Monocytes # 0.5 (0-1.0) k/uL Eosinophils # 0.2 (0-0.7) k/uL Basophils # 0.1 (0-0.2) k/uL Hypochromasia Slight PT 10.0 (9.0-12.0) sec INR 0.9 (<1.2) APTT 26.5 (22.0-30.0) sec D-Dimer 0.58 (<0.60) mg/L FEU Sodium 138 (137-145) mmol/L Potassium 4.5 (3.5-5.1) mmol/L Chloride 101 (98-107) mmol/L Carbon Dioxide 25 (22-30) mmol/L Anion Gap 12 mmol/L BUN 13 (9-20) mg/dL Creatinine 0.78 (0.66-1.25) mg/dL Est GFR (CKD-EPI)AfAm >90 (>60 ml/min/1.73 sqM) Est GFR (CKD-EPI)NonAf >90 (>60 ml/min/1.73 sqM) Glucose 148 H (74-99) mg/dL Plasma Lactic Acid Dionicio (0.7-2.0) mmol/L Calcium 9.1 (8.4-10.2) mg/dL Magnesium 1.8 (1.6-2.3) mg/dL Total Bilirubin 0.3 (0.2-1.3) mg/dL AST 21 (17-59) U/L ALT 17 (4-49) U/L Alkaline Phosphatase 102 (38-126) U/L Troponin I (0.000-0.034) ng/mL NT-Pro-B Natriuret Pep pg/mL Total Protein 6.6 (6.3-8.2) g/dL Albumin 4.1 (3.5-5.0) g/dL 07/07/22 07/07/22 07/07/22 Range/Units 06:30 06:30 06:30 WBC (3.8-10.6) k/uL RBC (4.30-5.90) m/uL Hgb (13.0-17.5) gm/dL Hct (39.0-53.0) % MCV (80.0-100.0) fL MCH (25.0-35.0) pg MCHC (31.0-37.0) g/dL RDW (11.5-15.5) % Plt Count (150-450) k/uL MPV Neutrophils % % Lymphocytes % % Monocytes % % Eosinophils % % Basophils % % Neutrophils # (1.3-7.7) k/uL Lymphocytes # (1.0-4.8) k/uL Monocytes # (0-1.0) k/uL Eosinophils # (0-0.7) k/uL Basophils # (0-0.2) k/uL Hypochromasia PT (9.0-12.0) sec INR (<1.2) APTT (22.0-30.0) sec D-Dimer (<0.60) mg/L FEU Sodium (137-145) mmol/L Potassium (3.5-5.1) mmol/L Chloride (98-107) mmol/L Carbon Dioxide (22-30) mmol/L Anion Gap mmol/L BUN (9-20) mg/dL Creatinine (0.66-1.25) mg/dL Est GFR (CKD-EPI)AfAm (>60 ml/min/1.73 sqM) Est GFR (CKD-EPI)NonAf (>60 ml/min/1.73 sqM) Glucose (74-99) mg/dL Plasma Lactic Acid Dionicio 1.6 (0.7-2.0) mmol/L Calcium (8.4-10.2) mg/dL Magnesium (1.6-2.3) mg/dL Total Bilirubin (0.2-1.3) mg/dL AST (17-59) U/L ALT (4-49) U/L Alkaline Phosphatase (38-126) U/L Troponin I <0.012 (0.000-0.034) ng/mL NT-Pro-B Natriuret Pep 56 pg/mL Total Protein (6.3-8.2) g/dL Albumin (3.5-5.0) g/dL Disposition Clinical Impression: Chest pain, Obesity, Dyspnea Disposition: ADMITTED IP TO THIS HOSP Condition: Fair Referrals: Alfredo Hope DO [Primary Care Provider] - 1-2 days Time of Disposition: 08:44
[2022-07-07 07:03] LABS: Basophils # (A) 0.1 k/uL (0-0.2); Basophils % (A) 1 %; Eosinophils # (A) 0.2 k/uL (0-0.7); Eosinophils % (A) 2 %; HCT 41.9 % (39.0-53.0); HGB 13.1 gm/dL (13.0-17.5); Hypochromasia Slight; Lymphocytes % (A) 10 %; MCH 26.1 pg (25.0-35.0); MCHC 31.3 g/dL (31.0-37.0); MCV 83.5 fL (80.0-100.0); Mean Platelet Volume 7.1; Monocytes # (A) 0.5 k/uL (0-1.0); Monocytes % (A) 5 %; Neutrophils % (A) 81 %; Platelet Count 320 k/uL (150-450); RBC 5.02 m/uL (4.30-5.90); RDW 14.4 % (11.5-15.5); WBC 9.9 k/uL (3.8-10.6)
--- NOTE | 2022-07-07 07:07 | XR ---
EXAMINATION TYPE: XR chest 2V DATE OF EXAM: 07/07/2022 COMPARISON: Chest x-ray March 20, 2022 HISTORY: Shortness of breath TECHNIQUE: Frontal and lateral views of the chest are obtained. FINDINGS: Exam slightly suboptimal secondary to patient's large body habitus. There is no suspicious new focal air space opacity, pleural effusion, or pneumothorax seen. Cardiomegaly redemonstrated. Br idging osteophytes in the lower thoracic spine redemonstrated. IMPRESSION: Cardiomegaly without acute pulmonary process. No significant change from prior.
[2022-07-07 07:15] LABS: ALT 17 U/L (4-49); AST 21 U/L (17-59); African American GFR (CKD) >90 (>60 ml/min/1.73 sqM); Albumin 4.1 g/dL (3.5-5.0); Alkaline Phosphatase 102 U/L (38-126); Anion Gap 12 mmol/L; Blood Urea Nitrogen 13 mg/dL (9-20); Calcium 9.1 mg/dL (8.4-10.2); Carbon Dioxide 25 mmol/L (22-30); Chloride 101 mmol/L (98-107); Glucose 148 mg/dL (74-99); Magnesium 1.8 mg/dL (1.6-2.3); Non-African American GFR(CKD) >90 (>60 ml/min/1.73 sqM); Potassium 4.5 mmol/L (3.5-5.1); Sodium 138 mmol/L (137-145); Total Bilirubin 0.3 mg/dL (0.2-1.3); Total Protein 6.6 g/dL (6.3-8.2)
[2022-07-07 07:17] LABS: INR 0.9 (<1.2); Partial Thromboplastin Time 26.5 sec (22.0-30.0)
[2022-07-07] MEDS ORDERED: NITROGLYCERIN SL TABS 0.4 MG TAB SUBLINGUAL PRN (08:56)
[2022-07-07] MEDS ORDERED: SYMBICORT 80-4.5 MCG INHALER INHALATION SCH (09:00)
[2022-07-07] MEDS: SPIRONOLACTONE 25 MG TAB PO SCH (10:22)
[2022-07-07] MEDS: FUROSEMIDE 40 MG TAB PO SCH (10:22)
[2022-07-07] MEDS ORDERED: ALBUTEROL NEBULIZED 2.5 MG/3 ML INHALATION PRN (14:32)
[2022-07-07] MEDS ORDERED: ALBUTEROL HFA INHALER INHALATION PRN (14:32)
[2022-07-07] MEDS: HEPARIN SODIUM,PORCINE/PF 5,000 UNIT/0.5 ML SYRINGE SQ SCH ×2 (16:05→23:15)
--- NOTE | 2022-07-07 17:26 | P.HPIM ---
History of Present Illness H&P Date: 07/07/22 History of Presenting Illness: Patient is a very pleasant 56-year-old male with a past medical history of COPD/emphysema, obstructive sleep apnea reports unable to use CPAP, osteo arthritis status post knee and shoulder repair/replacement, and obesity. He presented to the emergency department with a chief complaint of chest pain and shortness of breath. Patient reports pain to midsternal chest that radiates directly into his back accompanied by increased shortness of breath and worsening swelling of bilateral lower extremities. Patient reports he has noted feeling more tired over the last week along with the shortness of breath and leg swelling but states he has been functioning per normal up until last night when this shortness of breath seemed to worsen and was accompanied by the chest pain radiating into his back. Patient denies having any fevers, chills, changes in order to increase of chronic cough, nasal congestion or postnasal drainage, sore throat, palpitations, abdominal pain, nausea, vomiting, or experiencing any numbness/tingling/weakness in his extremities. Patient underwent full evaluation in the emergency department. CBC, coags, and CMP were unremarkable. D-dimer 0.58. Troponin negative at less than 0.012. ProBNP 56. EKG completed showing normal sinus rhythm at 99 bpm with no noted T wave or ST abnormality showing no signs of acute ischemia. Chest x-ray revealing cardiomegaly and negative for acute cardiopulmonary process. Patient was admitted under our services with consultation to cardiology. Review of systems: Pertinent positives and negatives as discussed in HPI, a complete review of systems was performed and all other systems are negative. Physical exam: Vital signs reviewed and stable. General: Nontoxic, no distress and appears stated age. Morbidly obese. Derm: Skin warm and dry, normal coloration for ethnicity. Head: Atraumatic, normocephalic and symmetric. Eyes: EOMs intact, no lid lag, and anicteric sclera Mouth: no lip lesions, mucus membranes moist Cardiovascular: regular rate and rhythm with normal S1S2, no murmur, positive posterior tibial pulses bilaterally, and cap refill < 2 seconds. Lungs: Respirations even, regular, and unlabored on room air. Lungs diminished, no rhonchi, no rales, no wheezing, and no accessory muscle usage. Abdominal: Obese abdomen soft, nontender to palpation, no guarding, no appreciable organomegaly Ext: ROM intact. No gross muscle atrophy, no contractures. 3+ pitting edema to bilateral lower extremities with venous discoloration Neuro: Speech clear, face symmetrical and CN II-XII grossly intact with no noted focal neuro deficits Psych: Alert and oriented to person, place, time, and situation. Appropriate and pleasant affect. Assessment and Plan of Care: Chest pain, rule out acute coronary event -Cardiology consult, appreciate further recommendations -Telemetry monitoring -Trend troponins -Cardiac diet, NPO at midnight -We will start patient on daily Aspirin -Lipid profile drawn 06/24/22 revealing a total cholesterol of 135, triglycerides 107, LDL 74.3 and HDL of 39.30. -Hemoglobin A1c 5.9% -Echocardiogram Worsening chronic bilateral lower extremity edema -Recommend BUTCH hose -Encourage elevation of lower extremities -Continue daily Lasix and Aldactone COPD, not in acute exacerbation -Oxygenation to be administered and titrated as needed to maintain SPO2 equal to or greater than 92% -Telemetry monitoring. -Monitor Pulse-oximetry -Duonebs as needed for SOB and/or wheezing -Incentive Spirometry Morbid obesity with BMI of 59.1 kg/m -Recommend outpatient weight management program. The patient is admitted with an anticipated less than 2 midnight stay for evaluation of chest pain CODE STATUS: Full code DVT prophylaxis: Heparin Discussed with: Patient and RN Anticipated discharge date: 1-[address]: Home A total of 45 minutes was spent on the care of this complex patient more than 50% of the time was spent in counseling and care coordination. I reviewed the documentation as provided by the ANTONIO above, who is the original author of this note. I agree with the documented assessment and plan, with the following changes: none Past Medical History Past Medical History: Asthma, COPD, GERD/Reflux, Osteoarthritis (OA), Sleep A pnea/CPAP/BIPAP Additional Past Medical History / Comment(s): JEANIE/unable to tolerate cpap, pneumonias, bronchitis, chronic lower extremity lymphedema/redness/scabs, arthritis in multiple joints/chronic pain/chronic back pain History of Any Multi-Drug Resistant Organisms: None Reported Past Surgical History: Adenoidectomy, Appendectomy, Orthopedic Surgery, Tonsillectomy Additional Past Surgical History / Comment(s): Bilateral knee arthroscopy, UVPPP, carpal tunnel surgery, right shoulder surgery, colonoscopy/benign polypectomy. Past Anesthesia/Blood Transfusion Reactions: No Reported Reaction Smoking Status: Former smoker - Past Family History Father History Unknown: Yes Family Medical History: Cancer Additional Family Medical History / Comment(s): . Mother History Unknown: Yes Family Medical History: Deep Vein Thrombosis (DVT) Medications and Allergies Home Medications Medication Instructions Recorded Confirmed Type Furosemide [Lasix] 40 mg PO DAILY 12/25/20 07/07/22 History Spironolactone [Aldactone] 25 mg PO DAILY 12/25/20 07/07/22 History Meloxicam 7.5 mg PO DAILY 08/05/21 07/07/22 History Albuterol Nebulized [Ventolin 2.5 mg INHALATION RT-QID PRN 07/07/22 07/07/22 History Nebulized] Albuterol Sulfate [Albuterol 1 puff INHALATION RT-QID PRN 07/07/22 07/07/22 History Sulfate Hfa] Budesonide/Formoterol Fumarate 1 puff INHALATION RT-DAILY 07/07/22 07/07/22 History [Symbicort 80-4.5 Mcg Inhaler] Cholecalciferol [Vitamin D3 (25 50 mcg PO DAILY 07/07/22 07/07/22 History Mcg = 1000 Iu)] Allergies Allergy/AdvReac Type Severity Reaction Status Date / Time No Known Allergies Allergy Verified 07/07/22 06:51 Physical Exam Vitals: Vital Signs Temp Pulse Resp BP Pulse Ox 07/07/22 13:13 68 20 130/89 98 07/07/22 12:13 89 16 115/62 98 07/07/22 10:22 92 18 121/58 99 07/07/22 08:14 97.9 F 94 18 123/66 97 07/07/22 06:46 98 F 99 18 123/63 98 Intake and Output 07/06/22 07/07/22 07/07/22 22:59 06:59 14:59 Other: Weight 181.437 kg 181.437 kg Results CBC & Chem 7: 07/07/22 06:30 07/07/22 06:30 Labs: Abnormal Lab Results - Last 24 Hours (Table) 07/07/22 07/07/22 Range/Units 06:30 06:30 Neutrophils # 8.0 H (1.3-7.7) k/uL Glucose 148 H (74-99) mg/dL Thrombosis Risk Factor Assmnt - Choose All That Apply Any of the Below Risk Factors Present?: Yes Each Factor Represents 1 point: Abnormal pulmonary function (COPD), Obesity (BMI >25), Swollen legs (current) Other Risk Factors: No Other congenital or acquired thrombophilia - If yes, enter type in comment: No Thrombosis Risk Factor Assessment Total Risk Factor Score: 3 Thrombosis Risk Factor Assessment Level: Moderate Risk
[2022-07-07] MEDS ORDERED: HYDROcodone/APAP 5-325MG 1 EACH TAB PO STA (20:56)
[2022-07-08] MEDS ORDERED: SYMBICORT 80-4.5 MCG INHALER INHALATION SCH (08:00)
[2022-07-08] MEDS ORDERED: ASPIRIN 325 MG TAB PO SCH (09:00)
[2022-07-08] MEDS ORDERED: MELOXICAM 7.5 MG TAB PO SCH (09:00)
[2022-07-08] MEDS ORDERED: CHOLECALCIFEROL 25 MCG (1000 IU) TABLET PO SCH (09:00)
[2022-07-08 09:05] VITALS: RESP 20; TEMP 97.6
[2022-07-08] MEDS: FUROSEMIDE 40 MG TAB PO SCH (09:08)
[2022-07-08] MEDS: HEPARIN SODIUM,PORCINE/PF 5,000 UNIT/0.5 ML SYRINGE SQ SCH (09:08)
[2022-07-08] MEDS: SPIRONOLACTONE 25 MG TAB PO SCH (09:08)
[2022-07-08] MEDS ORDERED: DOBUTamine DRIP for NUC MED 500 MG in DEXTROSE/WATER 1 250ML.BAG IV PRN (09:14)
--- NOTE | 2022-07-08 09:52 | P.CRDCN ---
History of Present Illness History of present illness: HISTORY OF PRESENTING ILLNESS Patient is a pleasant 56-year-old male with history of COPD, morbid obesity, obstructive sleep apnea, asthma, chronic lower extremity edema, severe LVH by prior Echo who presents chest pain. Patient has been having dyspnea over the last 2 years. He had previous admission in March where he had echocardiogram performed which showed low-normal EF 50-55%, severe LVH, mild pericardial effusion. He did not follow-up with rn chemical dependency at all. He states he was s itting down when he started to have more chest tightness sensation and feeling more short of breath as well as mildly diaphoretic. He denied any nausea. He denies any similar symptoms in the past. He states the episode lasted a few hours and slowly resolved in the emergency department. He denies any treatments that specifically helped. EKG showed sinus rhythm, RSR' V1-V2, nonspecific T- wave flattening, poor R-wave progression, low voltage. Blood work shows hemoglobin 13.1, d-dimer normal, creatinine 0.7, troponin normal 3, proBNP 56. Chest x-ray shows cardiomegaly without acute pulmonary process and no change from prior. REVIEW OF SYSTEMS At the time of my exam: CONSTITUTIONAL: Denies fever or chills. CARDIOVASCULAR: +chest pain, +shortness of breath, + chronic orthopnea, no PND or palpitations. + chronic edema RESPIRATORY: Denies cough. GASTROINTESTINAL: Denies abdominal pain, diarrhea, constipation, nausea or vomiting. MUSCULOSKELETAL: Denies myalgias. NEUROLOGIC: Denies numbness, tingling or weakness. ENDOCRINE: Denies fatigue, weight change, polydipsia or polyurina. GENITOURINARY: Denies burning, hematuria or urgency with micturation. HEMATOLOGIC: Denies history of anemia or bleeding. PHYSICAL EXAMINATION Vital signs reviewed. CONSTITUTIONAL: No apparent distress, chronically ill-appearing, morbidly obese HEENT: Head is normocephalic. Pupils are equal, round. Sclerae anicteric. Mucous membranes of the mouth are moist. No JVD. No carotid bruit. CHEST EXAMINATION: +mild wheeze, No chest wall tenderness is noted on palpation or with deep breathing. HEART EXAMINATION: Regular rate and rhythm. S1, S2 heard. No murmurs, gallops or rub. ABDOMEN: Soft, nontender. Positive bowel sounds. EXTREMITIES: 2+ peripheral pulses, 3+ lower extremity edema with chronic venous stasis changes and no calf tenderness. NEUROLOGIC EXAMINATION: Patient is awake, alert and oriented x3. ASSESSMENT 1. Atypical chest pain, acute coronary syndrome ruled out 2. Acute on chronic respiratory failure appears mainly related to asthma/COPD, obesity hypoventilation syndrome. proBNP normal and less likely CHF 3. Severe left ventricular hypertrophy noted on prior echo with low voltage however low voltage likely related to obesity 4. Chronic lower extremity edema appears mainly related to venous insufficiency. Currently somewhat improved after keeping legs elevated overni ght 5. Questionable component of diastolic heart failure with severe LVH noted on prior echo and some lower extremity edema however normal proBNP PLAN Patient with atypical chest pain as well as shortness breath. Troponins normal 3 and d-dimer and proBNP normal. ProBNP sometimes can be falsely low with obesity however symptoms appear fairly atypical. Prior echocardiogram had been performed in March. We will check a dobutamine stress echo and if unrevealing patient may be discharged home from a cardiac standpoint. There was mention of LVH on prior echo with low voltage however low voltage likely related to obesity. May consider outpatient cardiac MRI to evaluate for possible amyloidosis. Past Medical History Past Medical History: Asthma, COPD, GERD/Reflux, Osteoarthritis (OA), Sleep Apnea/CPAP/BIPAP Additional Past Medical History / Comment(s): JEANIE/unable to tolerate cpap, pneumonias, bronchitis, chronic lower extremity lymphedema/redness/scabs, arthritis in multiple joints/chronic pain/chronic back pain History of Any Multi-Drug Resistant Organisms: None Reported Past Surgical History: Adenoidectomy, Appendectomy, Orthopedic Surgery, Tonsillectomy Additional Past Surgical History / Comment(s): Bilateral knee arthroscopy, UVPPP, carpal tunnel surgery, right shoulder surgery, colonoscopy/benign polypectomy. Past Anesthesia/Blood Transfusion Reactions: No Reported Reaction Smoking Status: Former smoker - Past Family History Father History Unknown: Yes Family Medical History: Cancer Additional Family Medical History / Comment(s): . Mother History Unknown: Yes Family Medical History: Deep Vein Thrombosis (DVT) Medications and Allergies Home Medications Medication Instructions Recorded Confirmed Type Furosemide [Lasix] 40 mg PO DAILY 12/25/20 07/07/22 History Spironolactone [Aldactone] 25 mg PO DAILY 12/25/20 07/07/22 History Meloxicam 7.5 mg PO DAILY 08/05/21 07/07/22 History Albuterol Nebulized [Ventolin 2.5 mg INHALATION RT-QID PRN 07/07/22 07/07/22 History Nebulized] Albuterol Sulfate [Albuterol 1 puff INHALATION RT-QID PRN 07/07/22 07/07/22 History Sulfate Hfa] Budesonide/Formoterol Fumarate 1 puff INHALATION RT-DAILY 07/07/22 07/07/22 History [Symbicort 80-4.5 Mcg Inhaler] Cholecalciferol [Vitamin D3 (25 50 mcg PO DAILY 07/07/22 07/07/22 History Mcg = 1000 Iu)] Allergies Allergy/AdvReac Type Severity Reaction Status Date / Time No Known Allergies Allergy Verified 07/07/22 06:51 Physical Exam Vitals: Vital Signs Temp Pulse Pulse Resp BP BP Pulse Ox 07/08/22 09:00 20 07/08/22 08:00 97.6 F 98 20 132/76 98 07/08/22 01:51 97.7 F 84 19 119/63 95 07/07/22 20:18 98.1 F 77 21 148/76 94 L 07/07/22 17:04 97.5 F L 77 22 118/74 98 07/07/22 16:09 74 20 126/63 97 07/07/22 15:13 84 16 143/94 96 07/07/22 14:13 78 20 150/60 96 07/07/22 13:13 68 20 130/89 98 07/07/22 12:13 89 16 115/62 98 07/07/22 10:22 92 18 121/58 99 Intake and Output 07/07/22 07/08/22 07/08/22 22:59 06:59 14:59 Output Total 1999 -1999 Output: Urine 1999 Other: Voiding Method Toilet Toilet # Voids 2 3 Results 07/07/22 06:30 07/07/22 06:30 Cardiac Enzymes 07/07/22 07/07/22 Range/Units 09:20 11:49 Troponin I <0.012 <0.012 (0.000-0.034) ng/mL Current Medications Generic Name Dose Route Start Last Admin Trade Name Freq PRN Reason Stop Dose Admin Albuterol Sulfate 2.5 mg 07/07/22 14:32 Albuterol Nebulized 2.5 Mg/3 Ml INHALATION RT-QID PRN Shortness Of Breath Aspirin 325 mg 07/08/22 09:00 07/08/22 09:07 Aspirin 325 Mg Tab PO 325 mg DAILY TAMELA Administration Budesonide/Formoterol Fumarate 1 puff 07/08/22 08:00 07/08/22 07:12 Symbicort 80-4.5 Mcg Inhaler INHALATION 1 puff RT-DAILY TAMELA Administration Cholecalciferol 50 mcg 07/08/22 09:00 07/08/22 09:08 Cholecalciferol 25 Mcg (1000 Iu) Tablet PO 50 mcg DAILY TAMELA Administration Furosemide 40 mg 07/07/22 09:00 07/08/22 09:08 Furosemide 40 Mg Tab PO 40 mg DAILY TAMELA Administration Heparin Sodium (Porcine) 5,000 unit 07/07/22 16:00 07/08/22 09:08 Heparin Sodium,Porcine/Pf 5,000 Unit/0.5 Ml Syringe SQ 5,000 unit Q8HR TAMELA Administration Dobutamine HCl/Dextrose 500 mg 250 mls @ 54.431 mls/hr 07/08/22 09:14 / IV Solution IV 07/08/22 13:14 .[id number] PRN Per Protocol Protocol 10 MCG/KG/MIN Meloxicam 7.5 mg 07/08/22 09:00 07/08/22 09:07 Meloxicam 7.5 Mg Tab PO 7.5 mg DAILY TAMELA Administration Nitroglycerin 0.4 mg 07/07/22 08:56 Nitroglycerin Sl Tabs 0.4 Mg Tab SUBLINGUAL Q5M PRN Chest Pain Spironolactone 25 mg 07/07/22 09:00 07/08/22 09:08 Spironolactone 25 Mg Tab PO 25 mg DAILY TAMELA Administration Intake and Output 07/07/22 07/08/22 07/08/22 22:59 06:59 14:59 Output Total 1999 -1999 Output: Urine 1999 Other: Voiding Method Toilet Toilet # Voids 2 3 07/07/22 06:30 07/07/22 06:30
--- NOTE | 2022-07-08 11:05 | CA ---
Transthoracic Echo Report Name: Alfredo Rosas Age: 56 Gender: M : 1965 Exam Date: 07/07/2022 13:52 Exam Location: [facility] Ht (in): 69 Wt (lb): 400 Ordering Physician: Orlin Montelongo Attending/Referring Phys: [id number], Reginald Spun Paste Machine Operator Kia Mar RDCS Procedure CPT: Indications: Chest Pain Cardiac Hx: Technical Quality: Technically difficult study Contrast 1: Lumason Total Dose (mL): 1 Contrast 2: Total Dose (mL): MEASUREMENTS (Male / Female) Normal Values 2D ECHO LV Diastolic Diameter PLAX 4.5 cm 4.2 - 5.9 / 3.9 - 5.3 cm LV Systolic Diameter PLAX 2.9 cm IVS Diastolic Thickness 1.6 cm 0.6 - 1.0 / 0.6 - 0.9 cm LVPW Diastolic Thickness 1.9 cm 0.6 - 1.0 / 0.6 - 0.9 cm LV Relative Wall Thickness 0.8 DOPPLER TR Peak Velocity 160.3 cm/s TR Peak Gradient 10.3 mmHg Right Ventricular Systolic Press 15.3 mmHg FINDINGS Left Ventricle Moderately increased septal wall thickness. Left ventricular ejection fraction is estimated at 50-55 %. Right Ventricle Right Atrium Left Atrium Mitral Valve Aortic Valve Tricuspid Valve Pulmonic Valve Pericardium No pericardial effusion. Aorta CONCLUSIONS Technically difficult study Limited 2-D echo Moderate LVH Left ventricular EF 50-55% No pericardial effusion Previewed by: Dr. Rajinder Alexis DO (Electronically Signed) Final Date: 08 July 2022 11:05
[2022-07-08 11:46] VITALS: BP 126/75; PULSE 75
--- NOTE | 2022-07-08 13:02 | CA ---
Dobutamine Stress Echocardiogram Report Alfredo Rosas Age: 56 Gender: M : 1965 Exam Date: 07/08/2022 11:56 Exam Location: [facility] Ordering Physician: Rajinder Alexis DO ([email or web address]) Referring Physician: TEE,, Firearms Specialist: Alis England RDCS Technologist: Ht (in): 69 Wt (lb): 400 Procedure CPT: Indication: re: CP ICD-9 Codes: Rhythm: Patient History: Cardiac Medications: Medications in past 24 hours: Contrast: Total Dose (mL): Stress Results Protocol: Peak Dose (???g/kg/min): Duration (min:sec): Atropine:(mg) Target HR: 141 Double Product: Resting HR: 98 Resting BP: 121 / 76 Peak HR: 144 Peak BP: / 66 Max Predicted HR: 166 87 % Max Predicted HR Stress Summary: BP Response: Reason for Termination: INFUSION COMPLETE Cardiac Symptoms: DIFFICULTY IN BREATHING,CHEST TIGHTNESS,HANDS TINGLING ECG Analysis Resting EKG: Stress EKG: Arrhythmia: Echo Analysis Base Echo Analysis: Low Echo Anaylsis: Peak Echo Analysis: Recovery Echo: MEASUREMENTS (Male/Female) Normal Values CONCLUSIONS Patient underwent dobutamine stress echo with infusion of dobutamine. Patient's maximum heart rate was 144 which represented 86% age-predicted maximum heart rate. Patient did have hypertensive response with systolic blood pressure to 240/66 and had symptoms of chest tightness and shortness breath which is nonspecific and nondiagnostic. Stress EKG portion: At baseline patient's EKG showed normal sinus rhythm, normal axis, incomplete right bundle branch block. At peak dobutamine infusion, EKG showed no significant change from baseline. Stress echo portion: 2-D echocardiogram was performed in the parasternal long, personal short, apical 2 and apical four-chamber views at rest, low-dose, peak infusion and in recovery. At baseline, echocardiogram showed left ventricular ejection fraction 55% without wall motion abnormalities. With peak infusion, echocardiogram shows improvement in left ventricular ejection fraction, increase contractility, decrease in left ventricular end systolic dimension without wall motion abnormalities consistent with a normal response to dobutamine. Conclusions: 1. Normal stress EKG and echo response to dobutamine infusion without any evidence of inducible ischemia. 2. Normal left ventricular ejection fraction 55% Dr. Rajinder Alexis DO (Electronically Signed) Final Date: 08 July 2022 13:01
--- NOTE | 2022-07-08 14:21 | P.DS ---
Providers Date of admission: 07/07/22 08:57 Expected date of discharge: 07/08/22 Attending physician: Miguel Ángel Hood MD Consults: 07/07/22 08:56 Consult Physician Urgent Consulting Provider: Tim Chahal Consult Reason/Comments: chest pain Do you want consulting provider notified?: Yes Primary care physician: [facility] Course: Discharge Diagnosis: Chest pain, acute coronary event ruled out Worsening chronic bilateral lower extremity edema. Recommend BUTCH hose and elevation of the lower extremities when not in use. Continue daily Lasix and Aldactone. COPD, not in acute exacerbation Morbid obesity with BMI of 59.1 kg/m. Recommend outpatient weight management program. Hospital Course: Patient is a very pleasant 56-year-old male with a past medical history of COPD/emphysema, obstructive sleep apnea reports unable to use CPAP, osteoarthritis status post knee and shoulder repair/replacement, and obesity. He presented to the emergency department with a chief complaint of chest pain and shortness of breath. Patient reports pain to midsternal chest that radiates directly into his back accompanied by increased shortness of breath and worsening swelling of bilateral lower extremities. Patient reports he has noted feeling more tired over the last week along with the shortness of breath and leg swelling but states he has been functioning per normal up until last night when this shortness of breath seemed to worsen and was accompanied by the chest pain radiating into his back. Patient denies having any fevers, chills, changes in order to increase of chronic cough, nasal congestion or postnasal drainage, sore throat, palpitations, abdominal pain, nausea, vomiting, or experiencing any numbness/tingling/weakness in his extremities. Patient underwent full evaluation in the emergency department. CBC, coags, and CMP were unremarkable. D-dimer 0.58. Troponin negative at less than 0.012. ProBNP 56. EKG completed showing normal sinus rhythm at 99 bpm with no noted T wave or ST abnormality showing no signs of acute ischemia. Chest x-ray revealing cardiomegaly and negative for acute cardiopulmonary process. Patient was admitted under our services with consultation to cardiology. Troponins trended throughout the night all negative at less than 0.0123 draws. Covid PCR was negative. Echocardiogram completed revealing moderate left ventricular hypertrophy with an EF of 50-55%. Dobutamine stress echo revealed normal stress EKG and echo r esponse to dobutamine infusion without any evidence of inducible ischemia. Cardiology has cleared patient from cardiac standpoint recommending patient follow-up outpatient in their office. Medically, patient is stable at this time and is stable for discharge home. Patient to follow up outpatient with PCP in 1-2 days and cardiology in 1 week. Physical exam: Patient seen and fully evaluated at bedside, he was sitting up on the edge of the bed reports feeling good this morning. Patient denies having any chest pain, palpitations, shortness of breath, or any other complaints at this time. Vital signs reviewed and stable. General: Nontoxic, no distress and appears stated age. Morbidly obese. Derm: Skin warm and dry, normal coloration for ethnicity. Head: Atraumatic, normocephalic and symmetric. Eyes: EOMs intact, no lid lag, and anicteric sclera Mouth: no lip lesions, mucus membranes moist Cardiovascular: regular rate and rhythm with normal S1S2, no murmur, positive posterior tibial pulses bilaterally, and cap refill < 2 seconds. Lungs: Respirations even, regular, and unlabored on room air. Lungs diminished, no rhonchi, no rales, no wheezing, and no accessory muscle usage. Abdominal: Obese abdomen soft, nontender to palpation, no guarding, no appreciable organomegaly Ext: ROM intact. No gross muscle atrophy, no contractures. 3+ pitting edema to bilateral lower extremities with venous discoloration Neuro: Speech clear, face symmetrical and CN II-XII grossly intact with no noted focal neuro deficits Psych: Alert and oriented to person, place, time, and situation. Appropriate and pleasant affect. A total of 37 minutes of time were spent preparing this complex discharge summary. Pt was discharged on 07/08/22 at 2:09 PM. I reviewed the documentation as provided by the ANTONIO above, who is the original author of this note. I agree with the documented assessment and plan, with the following changes: none Patient Condition at Discharge: Stable Plan - Discharge Summary Discharge Rx Participant: No New Discharge Prescriptions: Continue Spironolactone [Aldactone] 25 mg PO DAILY Furosemide [Lasix] 40 mg PO DAILY Budesonide/Formoterol Fumarate [Symbicort 80-4.5 Mcg Inhaler] 1 puff INHALATION RT-DAILY Meloxicam 7.5 mg PO DAILY Albuterol Nebulized [Ventolin Nebulized] 2.5 mg INHALATION RT-QID PRN PRN Reason: Shortness Of Breath Cholecalciferol [Vitamin D3 (25 Mcg = 1000 Iu)] 50 mcg PO DAILY Albuterol Sulfate [Albuterol Sulfate Hfa] 1 puff INHALATION RT-QID PRN PRN Reason: Shortness Of Breath Discharge Medication List Furosemide [Lasix] 40 mg PO DAILY 12/25/20 [History] Spironolactone [Aldactone] 25 mg PO DAILY 12/25/20 [History] Meloxicam 7.5 mg PO DAILY 08/05/21 [History] Albuterol Nebulized [Ventolin Nebulized] 2.5 mg INHALATION RT-QID PRN 07/07/22 [History] Albuterol Sulfate [Albuterol Sulfate Hfa] 1 puff INHALATION RT-QID PRN 07/07/22 [History] Budesonide/Formoterol Fumarate [Symbicort 80-4.5 Mcg Inhaler] 1 puff INHALATION RT-DAILY 07/07/22 [History] Cholecalciferol [Vitamin D3 (25 Mcg = 1000 Iu)] 50 mcg PO DAILY 07/07/22 [History] Follow up Appointment(s)/Referral(s): Alfredo Hope DO [Primary Care Provider] - 1-2 days Rajinder Alexis DO [STAFF PHYSICIAN] - 1 Week Patient Instructions/Handouts: Chest Pain (DC), Heart Healthy Diet (DC) Activity/Diet/Wound Care/Special Instructions: Activity: As tolerated. Take breaks as needed. Diet: Heart healthy and carb consistent diet. Avoid salts, or foods with hidden salts such as canned or boxed foods and frozen dinners. Extra salt makes your heart work harder and traps the fluid in your body for longer. Special Instructions: Take all of your medications as directed and remember to keep all of your doctor's appointments and follow-up as needed. Thank you for allowing us to participate in your care, it was truly a pleasure having you for our patient!!! Discharge Disposition: HOME SELF-CARE
== END 2022-07-08 15:20 | disposition home or self-care (01) ==
LOC: EC 05:53 → 6NMEDSUR 08:57
PROVIDERS: ADMIT Family Medicine; ATTEND Family Medicine
DX: R07.89 Other chest pain (principal); J96.20 Acute and chronic respiratory failure, unspecified whether with hypoxia or hypercapnia; J43.9 Emphysema, unspecified; G47.33 Obstructive sleep apnea (adult) (pediatric); E66.01 Morbid (severe) obesity due to excess calories; Z68.43 Body mass index [BMI] 50.0-59.9, adult; R61 Generalized hyperhidrosis; M17.0 Bilateral primary osteoarthritis of knee; M19.042 Primary osteoarthritis, left hand; M19.041 Primary osteoarthritis, right hand; I51.7 Cardiomegaly; R60.0 Localized edema; I89.0 Lymphedema, not elsewhere classified; I87.2 Venous insufficiency (chronic) (peripheral); G89.29 Other chronic pain; Z20.822 Contact with and (suspected) exposure to COVID-19; M54.9 Dorsalgia, unspecified; Z79.1 Long term (current) use of non-steroidal anti-inflammatories (NSAID); Z79.899 Other long term (current) drug therapy; Z86.010 Personal history of colon polyps; Z79.51 Long term (current) use of inhaled steroids; Z90.49 Acquired absence of other specified parts of digestive tract; Z98.890 Other specified postprocedural states; Z87.891 Personal history of nicotine dependence; Z87.01 Personal history of pneumonia (recurrent); Z80.9 Family history of malignant neoplasm, unspecified; Z82.49 Family history of ischemic heart disease and other diseases of the circulatory system; Z71.3 Dietary counseling and surveillance
CPT/HCPCS: 96372 ×2; 96374; 99285; 36415; 94640; 93005; 85379; 83880; 80053; 83605; 83735; 84484; 85025; 85610; 85730; 87635; 71046; G0378 ×2; C8924; C8930; Q9950 ×2; J1644 ×2; 93308; 93351

== ENCOUNTER → 2022-07-30 | Outpatient (CLI) | payer OTHER ==
--- NOTE | 2022-07-30 16:30 | CT ---
EXAMINATION TYPE: CT abdomen pelvis wo/w con CT DLP: 5675.4 mGycm, Automated exposure control for dose reduction was used. DATE OF EXAM: 07/30/2022 4:09 PM COMPARISON: None CLINICAL INDICATION:Male, 56 years old with history of R10.32 LLQ pain; LLQ pain and nausea TECHNIQUE: Axial CT of the abdomen and pelvis with and without IV contrast. Sagittal and coronal ref ormats were created on a separate workstation. Contrast used:100 mL of Isovue 300 without and with IV Contrast, Oral contrast used: with Oral Contrast FINDINGS: LOWER CHEST: Unremarkable ABDOMEN LIVER: Unremarkable GALLBLADDER AND BILE DUCTS: Unremarkable. PANCREAS: Unremarkable. SPLEEN: Unremarkable. ADRENAL GLANDS: Right adrenal lipid rich adenoma. KIDNEYS AND URETERS: No evidence of hydronephrosis or renal calculus. The ureters are unremarkable. PELVIS BLADDER: Unremarkable REPRODUCTIVE: Unremarkable. ABDOMEN & PELVIS STOMACH AND BOWEL: No evidence of bowel obstruction. PERITONEUM: No evidence of pneumoperitoneum or free fluid. VASCULATURE: No evidence of aortic aneurysm. MUSCULOSKELETAL: No acute osseous abnormalities, multilevel disc degeneration changes are seen throug hout the spine. LYMPH NODES: Enlarged bilateral inguinal lymph nodes measuring up to 2.0 cm in short axis on the righ t and 2.7 cm on the left. SOFT TISSUE/ABDOMINAL WALL: Left fat filled inguinal hernia. IMPRESSION: 1. No evidence for acute abdominal process. 2. Left fat filled umbilical hernia. 3. Right benign adrenal lipid rich adenoma. 4. Enlarged bilateral bilateral inguinal lymph nodes max is nonspecific and could be patient's steff l anatomy. Comparisons with priors from outside institutions may be of benefit.
== END | disposition home or self-care (01) ==
LOC: RADCTMAIN 13:16
PROVIDERS: ATTEND Family Medicine
DX: K42.9 Umbilical hernia without obstruction or gangrene (principal); D35.01 Benign neoplasm of right adrenal gland; R59.0 Localized enlarged lymph nodes
CPT/HCPCS: 74178; Q9967

== ENCOUNTER 2022-09-16 13:14 | Emergency (ER) | payer OTHER ==
[2022-09-16 13:26] VITALS: TEMP 98
[2022-09-16] MEDS ORDERED: FUROSEMIDE 10 MG/ML 4 ML VIAL IV STA (13:50)
--- NOTE | 2022-09-16 13:54 | ED ---
General Adult HPI - General Chief complaint: Shortness of Breath Stated complaint: URI, sob Time Seen by Provider: 09/16/22 13:40 Source: patient, RN notes reviewed, old records reviewed Mode of arrival: ambulatory Limitations: no limitations - History of Present Illness Initial comments: This a 56-year-old male who is morbidly obese and has a history of congestive heart failure and COPD. Patient presents today complaining of difficulty breathing over the last few days. Patient states he has also had 9, weight gain in 3 days. Patient denies any fever chills or cough. Patient complains of shortness of breath but no chest pain or palpitations. Patient denies lightheadedness or dizziness. Patient states he becomes more short of breath with any exertion. Patient denies any abdominal pain patient denies nausea vomiting diarrhea. Patient states his legs become much more edematous upon the chronic edema that he normally has per patient states his left leg is always bigger than the right and it continues to be the case today. - Related Data Home Medications Medication Instructions Recorded Confirmed Furosemide [Lasix] 40 mg PO DAILY 12/25/20 08/05/22 Spironolactone [Aldactone] 25 mg PO DAILY 12/25/20 08/05/22 Meloxicam 7.5 mg PO DAILY 08/05/21 08/05/22 Albuterol Nebulized [Ventolin 2.5 mg INHALATION RT-QID PRN 07/07/22 08/05/22 Nebulized] Albuterol Sulfate [Albuterol 1 puff INHALATION RT-QID PRN 07/07/22 08/05/22 Sulfate Hfa] Budesonide/Formoterol Fumarate 1 puff INHALATION RT-DAILY 07/07/22 08/05/22 [Symbicort 80-4.5 Mcg Inhaler] Cholecalciferol [Vitamin D3 (25 50 mcg PO DAILY 07/07/22 08/05/22 Mcg = 1000 Iu)] Allergies Allergy/AdvReac Type Severity Reaction Status Date / Time No Known Allergies Allergy Verified 09/16/22 13:26 Review of Systems ROS Statement: Those systems with pertinent positive or pertinent negative responses have been documented in the HPI. ROS Other: All systems not noted in ROS Statement are negative. Past Medical History Past Medical History: Asthma, COPD, GERD/Reflux, Osteoarthritis (OA), Sleep Apnea/CPAP/BIPAP Additional Past Medical History / Comment(s): JEANIE/unable to tolerate cpap, pneumonias, bronchitis, chronic lower extremity lymphedema/redness/scabs, arthritis in multiple joints/chronic pain/chronic back pain History of Any Multi-Drug Resistant Organisms: None Reported Past Surgical History: Adenoidectomy, Appendectomy, Orthopedic Surgery, Tonsillectomy Additional Past Surgical History / Comment(s): Bilateral knee arthroscopy, UVPPP, carpal tunnel surgery, right shoulder surgery, colonoscopy/benign polypectomy. Past Anesthesia/Blood Transfusion Reactions: No Reported Reaction Past Psychological History: No Psychological Hx Reported Smoking Status: Former smoker Past Alcohol Use History: None Reported Past Drug Use History: None Reported - Past Family History Father History Unknown: Yes Family Medical History: Cancer Additional Family Medical History / Comment(s): . Mother History Unknown: Yes Family Medical History: Deep Vein Thrombosis (DVT) General Exam - General Exam Comments Initial Comments: GENERAL: Patient is well-developed and well-nourished. Patient is nontoxic and well- hydrated and is in mild distress. ENT: Neck is soft and supple. No significant lymphadenopathy is noted. Oropharynx is clear. Moist mucous membranes. Neck has full range of motion without eliciting any pain. EYES: The sclera were anicteric and conjunctiva were pink and moist. Extraocular movements were intact and pupils were equal round and reactive to light. Eyelids were unremarkable. PULMONARY: Unlabored respirations. Good breath sounds bilaterally. No audible rales rhonchi or wheezing was noted. CARDIOVASCULAR: Patient is tachycardic at about 100 beats a minute and is a regular rate and rhy thm ABDOMEN: Soft and nontender with normal bowel sounds. Patient is morbidly obese SKIN: Skin is clear with no lesions or rashes and otherwise unremarkable. NEUROLOGIC: Patient is alert and oriented x3. Cranial nerves II through XII are grossly intact. Motor and sensory are also intact. Normal speech, volume and content. Symmetrical smile. MUSCULOSKELETAL: Normal extremities with adequate strength and full range of motion. Left leg is larger than the right both have 2+ edema and chronic cellulitis LYMPHATICS: No significant lymphadenopathy is noted PSYCHIATRIC: Normal psychiatric evaluation. 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 I interpreted the chest x-ray. I find no infiltrates or pulmonary edema. I went in and talk with the patient he states that he came in basically because he gained weight and he was told that he needs to come in if he gained weight. Patient states he is comfortable going home now that he is been checked out. - Lab Data Result diagrams: 09/16/22 14:15 09/16/22 14:15 Lab Results 09/16/22 09/16/22 09/16/22 Range/Units 14:15 14:15 14:15 WBC 8.9 (3.8-10.6) k/uL RBC 5.00 (4.30-5.90) m/uL Hgb 13.8 (13.0-17.5) gm/dL Hct 41.7 (39.0-53.0) % MCV 83.4 (80.0-100.0) fL MCH 27.7 (25.0-35.0) pg MCHC 33.2 (31.0-37.0) g/dL RDW 14.7 (11.5-15.5) % Plt Count 265 (150-450) k/uL MPV 7.6 Neutrophils % 72 % Lymphocytes % 15 % Monocytes % 8 % Eosinophils % 3 % Basophils % 1 % Neutrophils # 6.4 (1.3-7.7) k/uL Lymphocytes # 1.4 (1.0-4.8) k/uL Monocytes # 0.7 (0-1.0) k/uL Eosinophils # 0.3 (0-0.7) k/uL Basophils # 0.0 (0-0.2) k/uL PT 9.7 (9.0-12.0) sec INR 0.9 (<1.2) APTT 26.1 (22.0-30.0) sec D-Dimer 0.40 (<0.60) mg/L FEU Sodium 137 (137-145) mmol/L Potassium 4.9 (3.5-5.1) mmol/L Chloride 101 (98-107) mmol/L Carbon Dioxide 29 (22-30) mmol/L Anion Gap 7 mmol/L BUN 16 (9-20) mg/dL Creatinine 0.58 L (0.66-1.25) mg/dL Est GFR (CKD-EPI)AfAm >90 (>60 ml/min/1.73 sqM) Est GFR (CKD-EPI)NonAf >90 (>60 ml/min/1.73 sqM) Glucose 96 (74-99) mg/dL Plasma Lactic Acid Dionicio (0.7-2.0) mmol/L Calcium 8.4 (8.4-10.2) mg/dL Magnesium 2.0 (1.6-2.3) mg/dL Total Bilirubin 0.8 (0.2-1.3) mg/dL AST 37 (17-59) U/L ALT 23 (4-49) U/L Alkaline Phosphatase 85 (38-126) U/L Troponin I (0.000-0.034) ng/mL NT-Pro-B Natriuret Pep pg/mL Total Protein 6.8 (6.3-8.2) g/dL Albumin 4.2 (3.5-5.0) g/dL 09/16/22 09/16/22 09/16/22 Range/Units 14:15 14:15 14:15 WBC (3.8-10.6) k/uL RBC (4.30-5.90) m/uL Hgb (13.0-17.5) gm/dL Hct (39.0-53.0) % MCV (80.0-100.0) fL MCH (25.0-35.0) pg MCHC (31.0-37.0) g/dL RDW (11.5-15.5) % Plt Count (150-450) k/uL MPV Neutrophils % % Lymphocytes % % Monocytes % % Eosinophils % % Basophils % % Neutrophils # (1.3-7.7) k/uL Lymphocytes # (1.0-4.8) k/uL Monocytes # (0-1.0) k/uL Eosinophils # (0-0.7) k/uL Basophils # (0-0.2) k/uL PT (9.0-12.0) sec INR (<1.2) APTT (22.0-30.0) sec D-Dimer (<0.60) mg/L FEU Sodium (137-145) mmol/L Potassium (3.5-5.1) mmol/L Chloride (98-107) mmol/L Carbon Dioxide (22-30) mmol/L Anion Gap mmol/L BUN (9-20) mg/dL Creatinine (0.66-1.25) mg/dL Est GFR (CKD-EPI)AfAm (>60 ml/min/1.73 sqM) Est GFR (CKD-EPI)NonAf (>60 ml/min/1.73 sqM) Glucose (74-99) mg/dL Plasma Lactic Acid Dionicio 1.4 (0.7-2.0) mmol/L Calcium (8.4-10.2) mg/dL Magnesium (1.6-2.3) mg/dL Total Bilirubin (0.2-1.3) mg/dL AST (17-59) U/L ALT (4-49) U/L Alkaline Phosphatase (38-126) U/L Troponin I <0.012 (0.000-0.034) ng/mL NT-Pro-B Natriuret Pep 51 pg/mL Total Protein (6.3-8.2) g/dL Albumin (3.5-5.0) g/dL Disposition Clinical Impression: Weight gain, Dyspnea Disposition: HOME SELF-CARE Condition: Good Instructions (If sedation given, give patient instructions): Dyspnea (ED) Is patient prescribed a controlled substance at d/c from ED?: No Referrals: Alfredo Hope DO [Primary Care Provider] - 1-2 days Time of Disposition: 15:30
[2022-09-16 14:29] LABS: Basophils % (A) 1 %; Eosinophils # (A) 0.3 k/uL (0-0.7); Eosinophils % (A) 3 %; HCT 41.7 % (39.0-53.0); HGB 13.8 gm/dL (13.0-17.5); Lymphocytes # (A) 1.4 k/uL (1.0-4.8); Lymphocytes % (A) 15 %; MCH 27.7 pg (25.0-35.0); MCHC 33.2 g/dL (31.0-37.0); MCV 83.4 fL (80.0-100.0); Mean Platelet Volume 7.6; Monocytes # (A) 0.7 k/uL (0-1.0); Monocytes % (A) 8 %; Neutrophils # (A) 6.4 k/uL (1.3-7.7); Neutrophils % (A) 72 %; Platelet Count 265 k/uL (150-450); RDW 14.7 % (11.5-15.5); WBC 8.9 k/uL (3.8-10.6)
[2022-09-16 14:39] LABS: ALT 23 U/L (4-49); AST 37 U/L (17-59); African American GFR (CKD) >90 (>60 ml/min/1.73 sqM); Albumin 4.2 g/dL (3.5-5.0); Alkaline Phosphatase 85 U/L (38-126); Anion Gap 7 mmol/L; Blood Urea Nitrogen 16 mg/dL (9-20); Calcium 8.4 mg/dL (8.4-10.2); Carbon Dioxide 29 mmol/L (22-30); Chloride 101 mmol/L (98-107); Glucose 96 mg/dL (74-99); Non-African American GFR(CKD) >90 (>60 ml/min/1.73 sqM); Potassium 4.9 mmol/L (3.5-5.1); Sodium 137 mmol/L (137-145); Total Bilirubin 0.8 mg/dL (0.2-1.3); Total Protein 6.8 g/dL (6.3-8.2)
[2022-09-16 14:57] LABS: INR 0.9 (<1.2); Partial Thromboplastin Time 26.1 sec (22.0-30.0); Prothrombin Time 9.7 sec (9.0-12.0)
--- NOTE | 2022-09-16 15:02 | XR ---
EXAMINATION TYPE: XR chest 2V DATE OF EXAM: 09/16/2022 COMPARISON: Chest x-ray July 07, 2022 HISTORY: Difficulty in breathing TECHNIQUE: Frontal and lateral views of the chest are obtained. FINDINGS: Cardiomegaly is redemonstrated. Low lung volumes redemonstrated. No suspicious new focal airspace opacity, pleural effusion, or pneumothorax seen bilaterally. The osseous structures are inta ct. IMPRESSION: Cardiomegaly and low lung volumes without acute pulmonary process.
[2022-09-16 15:08] VITALS: RESP 20
[2022-09-16 16:52] VITALS: BP 126/92; PULSE 85
== END 2022-09-16 16:52 | disposition home or self-care (01) ==
LOC: EC 13:14
DX: R06.00 Dyspnea, unspecified (principal); E66.01 Morbid (severe) obesity due to excess calories; J44.9 Chronic obstructive pulmonary disease, unspecified; K21.9 Gastro-esophageal reflux disease without esophagitis; I50.20 Unspecified systolic (congestive) heart failure; M19.90 Unspecified osteoarthritis, unspecified site; Z87.891 Personal history of nicotine dependence; Z79.51 Long term (current) use of inhaled steroids
CPT/HCPCS: 36415; 93005; 85379; 83880; 80053; 83605; 83735; 84484; 85025; 85610; 85730; 71046; 99285; 96374; J1940

== ENCOUNTER 2023-02-11 06:21 | Emergency (ER) | payer MEDICARE, OTHER ==
[2023-02-11 06:25] VITALS: TEMP 98
[2023-02-11] MEDS ORDERED: BACITRACIN OINT 1 EACH PACKET TOPICAL ONE (06:48)
--- NOTE | 2023-02-11 07:37 | ED ---
General Adult HPI - General Chief complaint: Wound/Laceration Stated complaint: Leg wound Time Seen by Provider: 02/11/23 06:26 Source: patient, RN notes reviewed Mode of arrival: wheelchair Limitations: no limitations - History of Present Illness Initial comments: 57-year-old male presents to the emergency department with chief complaint of wound. It is on the posterior medial right thigh. He states that the wound would not stop bleeding for the past 4 hours. He states that it has been there for 3 weeks but it has not bled before. It is about 1 cm. He has seen wound care in the past but it has been 2 months since he has seen them last. Denies fever, hip and thigh pain. He has no help at home and may benefit from home health care. - Related Data Home Medications Medication Instructions Recorded Confirmed Furosemide [Lasix] 40 mg PO DAILY 12/25/20 08/05/22 Spironolactone [Aldactone] 25 mg PO DAILY 12/25/20 08/05/22 Meloxicam 7.5 mg PO DAILY 08/05/21 08/05/22 Albuterol Nebulized [Ventolin 2.5 mg INHALATION RT-QID PRN 07/07/22 08/05/22 Nebulized] Albuterol Sulfate [Albuterol 1 puff INHALATION RT-QID PRN 07/07/22 08/05/22 Sulfate Hfa] Budesonide/Formoterol Fumarate 1 puff INHALATION RT-DAILY 07/07/22 08/05/22 [Symbicort 80-4.5 Mcg Inhaler] Cholecalciferol [Vitamin D3 (25 50 mcg PO DAILY 07/07/22 08/05/22 Mcg = 1000 Iu)] Previous Rx's Medication Instructions Recorded Cyclobenzaprine [Flexeril] 10 mg PO TID PRN #12 tablet 12/30/22 Ibuprofen [Motrin] 600 mg PO Q6HR PRN #20 tab 12/30/22 Allergies Allergy/AdvReac Type Severity Reaction Status Date / Time No Known Allergies Allergy Verified 02/11/23 06:23 Review of Systems ROS Statement: Those systems with pertinent positive or pertinent negative responses have been documented in the HPI. ROS Other: All systems not noted in ROS Statement are negative. Past Medical History Past Medical History: Asthma, COPD, GERD/Reflux, Osteoarthritis (OA), Sleep Apnea/CPAP/BIPAP Additional Past Medical History / Comment(s): JEANIE/unable to tolerate cpap, pneumonias, bronchitis, chronic lower extremity lymphedema/redness/scabs, arthritis in multiple joints/chronic pain/chronic back pain History of Any Multi-Drug Resistant Organisms: None Reported Past Surgical History: Adenoidectomy, Appendectomy, Orthopedic Surgery, Tonsillectomy Additional Past Surgical History / Comment(s): Bilateral knee arthroscopy, UVPPP, carpal tunnel surgery, right shoulder surgery, colonoscopy/benign polypectomy. Past Anesthesia/Blood Transfusion Reactions: No Reported Reaction Past Psychological History: No Psychological Hx Reported Smoking Status: Former smoker Past Alcohol Use History: None Reported Past Drug Use History: None Reported - Past Family History Father History Unknown: Yes Family Medical History: Cancer Additional Family Medical History / Comment(s): . Mother History Unknown: Yes Family Medical History: Deep Vein Thrombosis (DVT) General Exam Limitations: no limitations General appearance: alert, in no apparent distress Eye exam: Present: normal appearance, PERRL Respiratory exam: Present: normal lung sounds bilaterally Cardiovascular Exam: Present: regular rate, normal rhythm, normal heart sounds. Absent: systolic murmur, diastolic murmur, rubs, gallop, clicks Extremities exam: Present: normal capillary refill. Absent: full ROM (limited due to body habitus ), tenderness, calf tenderness Right Hip exam: Present: normal inspection Upper Leg exam: Present: laceration (1 cm wound on posterior thigh, no induration ). Absent: tenderness, swelling, ecchymosis Neurological exam: Present: alert, oriented X3 Skin exam: Present: warm, dry, normal color. Absent: intact (ulceration to posterior right thigh ), rash Course Vital Signs 02/11/23 02/11/23 06:23 08:00 Temperature 98 F Pulse Rate 118 H 110 H Respiratory 26 H 22 Rate Blood Pressure 174/99 127/83 O2 Sat by Pulse 98 95 Oximetry Medical Decision Making - Medical Decision Making Was pt. sent in by a medical professional or institution (, PA, SHI[employer] RUNNER, urgent care, hospital, or usp...) When possible be specific @ -No Did you speak to anyone other than the patient for history (EMS, parent, family, police, friend...)? What history was obtained from this source @ -No Did you review nursing and triage notes (agree or disagree)? Why? @ -I reviewed and agree with nursing and triage notes Were old charts reviewed (outside hosp., previous admission, EMS record, old EKG, old radiological studies, urgent care reports/EKG's, usp records)? Report findings @ -No old charts were reviewed Differential Diagnosis (chest pain, altered mental status, abdominal pain women, abdominal pain men, vaginal bleeding, weakness, fever, dyspnea, syncope, headache, dizziness, GI bleed, back pain, seizure, CVA, palpatations, mental health, musculoskeletal)? @ -Laceration, pressure ulcer, skin tear, this list is not all inclusive EKG interpreted by me (3pts min.). @ -None X-rays interpreted by me (1pt min.). @ -None done CT interpreted by me (1pt min.). @ -None done U/S interpreted by me (1pt. min.). @ -None done What testing was considered but not performed or refused? (CT, X-rays, U/S, labs)? Why? @ -None What meds were considered but not given or refused? Why? @ -None Did you discuss the management of the patient with other professionals (professionals i.e. Dr., PA, SHIELD RUNNER, lab, RT, psych nurse, social work specialist, checker and packer, teacher, evp chief exploration officer, manager of case)? Give summary @ -No Was smoking cessation discussed for >3mins.? @ -No Was critical care preformed (if so, how long)? @ -No Were there social determinants of health that impacted care today? How? (Homelessness, low income, unemployed, alcoholism, drug addiction, transportation, low edu. Level, literacy, decrease access to med. care, usp, rehab)? @ -No Was there de-escalation of care discussed even if they declined (Discuss DNR or withdrawal of care, Hospice)? DNR status @ -No What co-morbidities impacted this encounter? (DM, HTN, Smoking, COPD, CAD, Cancer, CVA, ARF, Chemo, Hep., AIDS, mental health diagnosis, sleep apnea, morbid obesity)? @ -Obesity Was patient admitted / discharged? Hospital course, mention meds given and route, prescriptions, significant lab abnormalities, going to OR and other pertinent info. @ -Discharged. Patient presented with 1 cm wound that had been bleeding. Wound was cleaned, bleeding stopped, bacitracin applied. Patient discharged in stable condition. Undiagnosed new problem with uncertain prognosis? @ -No Drug Therapy requiring intensive monitoring for toxicity (Heparin, Nitro, Insulin, Cardizem)? @ -No Were any procedures done? @ -No Diagnosis/symptom? @ -wound Acute, or Chronic, or Acute on Chronic? @ -acute Uncomplicated (without systemic symptoms) or Complicated (systemic symptoms)? @ -uncomplicated Side effects of treatment? @ -No Exacerbation, Progression, or Severe Exacerbation? @ -No Poses a threat to life or bodily function? How? (Chest pain, USA, [place], pneumonia, PE, COPD, DKA, ARF, appy, cholecystitis, CVA, Diverticulitis, Homicidal, Suicidal, threat to staff... and all critical care pts) @ -No Disposition Clinical Impression: Wound of thigh Disposition: HOME SELF-CARE Condition: Stable Additional Instructions: Please return to the Emergency Department if symptoms worsen or any other concerns. Is patient prescribed a controlled substance at d/c from ED?: No Referrals: Alfredo Hope DO [Primary Care Provider] - 1-2 days Time of Disposition: 08:05
[2023-02-11 08:02] VITALS: BP 127/83; PULSE 110; RESP 22
== END 2023-02-11 08:45 | disposition home or self-care (01) ==
LOC: EC 06:21
DX: S71.101A Unspecified open wound, right thigh, initial encounter (principal); J44.9 Chronic obstructive pulmonary disease, unspecified; K21.9 Gastro-esophageal reflux disease without esophagitis; M19.90 Unspecified osteoarthritis, unspecified site; E66.9 Obesity, unspecified; Z87.891 Personal history of nicotine dependence; Z79.51 Long term (current) use of inhaled steroids; Z79.899 Other long term (current) drug therapy; Z68.44 Body mass index [BMI] 60.0-69.9, adult; Z90.49 Acquired absence of other specified parts of digestive tract; X58.XXXA Exposure to other specified factors, initial encounter
CPT/HCPCS: 99283

== ENCOUNTER 2023-04-20 17:19 | Observation (INO) | payer MEDICARE, OTHER ==
--- NOTE | 2023-04-20 17:41 | ED ---
SOB HPI - General Source: RN notes reviewed <Kirstie Harden - Last Filed: 04/20/23 17:39> - General Source: patient, RN notes reviewed, old records reviewed <Han Tao - Last Filed: 04/20/23 21:25> - General Stated Complaint: SURYA Time Seen by Provider: 04/20/23 17:39 - History of Present Illness Initial Comments: Patient is a 57 year old male who presents for shortness of breath. (Kirstie Harden) 57-year-old male presenting for evaluation of cough and dyspnea. Patient states he has had flulike symptoms for the past several days. He does admit to a central chest discomfort. He states he's had subjective fever chills. No abdominal pain or vomiting. Patient reports lower extremity edema which is chronic. (Han Tao) - Related Data Home Medications Medication Instructions Recorded Confirmed Furosemide [Lasix] 40 mg PO DAILY 12/25/20 04/20/23 Spironolactone [Aldactone] 25 mg PO DAILY 12/25/20 04/20/23 Meloxicam 7.5 mg PO DAILY 08/05/21 04/20/23 Acetaminophen Tab [Tylenol Tab] 1,000 mg PO Q6HR PRN 04/20/23 04/20/23 Allergies Allergy/AdvReac Type Severity Reaction Status Date / Time No Known Allergies Allergy Verified 04/20/23 20:37 Review of Systems ROS Other: All systems not noted in ROS Statement are negative. <Kirstie Harden - Last Filed: 04/20/23 17:39> ROS Other: All systems not noted in ROS Statement are negative. <Han Tao - Last Filed: 04/20/23 21:25> ROS Statement: Those systems with pertinent positive or pertinent negative responses have been documented in the HPI. Past Medical History Past Medical History: Asthma, COPD, GERD/Reflux, Osteoarthritis (OA), Sleep Apnea/CPAP/BIPAP Additional Past Medical History / Comment(s): JEANIE/unable to tolerate cpap, pneumonias, bronchitis, chronic lower extremity lymphedema/redness/scabs, arthritis in multiple joints/chronic pain/chronic back pain History of Any Multi-Drug Resistant Organisms: None Reported Past Surgical History: Adenoidectomy, Appendectomy, Orthopedic Surgery, Tonsillectomy Additional Past Surgical History / Comment(s): Bilateral knee arthroscopy, UVPPP, carpal tunnel surgery, right shoulder surgery, colonoscopy/benign polypectomy. Past Anesthesia/Blood Transfusion Reactions: No Reported Reaction Past Psychological History: No Psychological Hx Reported Smoking Status: Former smoker Past Alcohol Use History: None Reported Past Drug Use History: None Reported - Past Family History Father History Unknown: Yes Family Medical History: Cancer Additional Family Medical History / Comment(s): . Mother History Unknown: Yes Family Medical History: Deep Vein Thrombosis (DVT) <Kirstie Harden - Last Filed: 04/20/23 17:39> General Exam <Kirstie Harden - Last Filed: 04/20/23 17:39> General appearance: alert, in no apparent distress Head exam: Present: atraumatic, normocephalic Eye exam: Present: normal appearance, PERRL ENT exam: Present: normal exam Neck exam: Present: normal inspection. Absent: tenderness, meningismus Respiratory exam: Present: wheezes, decreased breath sounds. Absent: respiratory distress Cardiovascular Exam: Present: regular rate, normal rhythm GI/Abdominal exam: Present: soft. Absent: distended, tenderness, guarding Extremities exam: Present: pedal edema Neurological exam: Present: alert, oriented X3, CN II-XII intact. Absent: motor sensory deficit Psychiatric exam: Present: normal affect, normal mood Skin exam: Present: warm, dry, intact. Absent: cyanosis, diaphoretic <Han Tao - Last Filed: 04/20/23 21:25> - General Exam Comments Initial Comments: Visual Physical Exam Vital signs reviewed General: non toxic appearing Head: Normocephalic, atraumatic Eyes: PERRLA, EOMI ENT: Airway patent Chest: abored breathing Skin: No visual rash, normal skin tone Neuro: Alert and oriented 3 Musculoskeletal: No gross abnormalities (Kirstie Harden) Course Vital Signs 04/20/23 04/20/23 04/20/23 17:46 19:15 20:59 Temperature 96.7 F L Pulse Rate 103 H 100 Respiratory 20 22 Rate Blood Pressure 146/73 O2 Sat by Pulse 95 Oximetry Medical Decision Making - Lab Data Result diagrams: 04/20/23 18:10 04/20/23 18:10 <Han Tao - Last Filed: 04/20/23 21:25> - Medical Decision Making Was pt. sent in by a medical professional or institution (LORNA Torres, [employer], urgent care, hospital, or snf...) When possible be specific @ -[No] Did you speak to anyone other than the patient for history (EMS, parent, family, police, friend...)? What history was obtained from this source @ -[No] Did you review nursing and triage notes (agree or disagree)? Why? @ -[I reviewed and agree with nursing and triage notes] Were old charts reviewed (outside hosp., previous admission, EMS record, old EKG, old radiological studies, urgent care reports/EKG's, snf records)? Report findings @ -[No old charts were reviewed] Differential Diagnosis (chest pain, altered mental status, abdominal pain women, abdominal pain men, vaginal bleeding, weakness, fever, dyspnea, syncope, headache, dizziness, GI bleed, back pain, seizure, CVA, palpatations, mental health, musculoskeletal)? @ -[Differential Dyspnea: Coronary syndrome, arrhythmia, tamponade, asthma, COPD, pulmonary embolism, pneumonia, pneumothorax, pulmonary effusion, anaphylaxis, diabetic ketoacidosis, flailed chest, pulmonary contusion, diaphragmatic rupture, anemia, neuromuscular, this is not meant to be an all-inclusive list. ] EKG interpreted by me (3pts min.). @ -[sinus rhythm rate of 82, LA interval 177, QRS duration 128, QTC 400, no ST segment elevation.] X-rays interpreted by me (1pt min.). @ -[cardiomegaly, poor penetration.No pneumothorax] CT interpreted by me (1pt min.). @ -[None done] U/S interpreted by me (1pt. min.). @ -[None done] What testing was considered but not performed or refused? (CT, X-rays, U/S, labs)? Why? @ -[None] What meds were considered but not given or refused? Why? @ -[None] Did you discuss the management of the patient with other professionals (professionals i.e. LORNA Torres, [employer], lab, RT, psych nurse, renal social worker, stabilizing machine operator, teacher, access control officer, community case manager)? Give summary @ -[No. Case discussed with Dr. Quiroz who will admit.] Was smoking cessation discussed for >3mins.? @ -[No] Was critical care preformed (if so, how long)? @ -[No] Were there social determinants of health that impacted care today? How? (Homelessness, low income, unemployed, alcoholism, drug addiction, transportation, low edu. Level, literacy, decrease access to med. care, alf, rehab)? @ -[No] Was there de-escalation of care discussed even if they declined (Discuss DNR or withdrawal of care, Hospice)? DNR status @ -[No] What co-morbidities impacted this encounter? (DM, HTN, Smoking, COPD, CAD, Cancer, CVA, ARF, Chemo, Hep., AIDS, mental health diagnosis, sleep apnea, morbid obesity)? @ -[Asthma] Was patient admitted / discharged? Hospital course, mention meds given and route, prescriptions, significant lab abnormalities, going to OR and other pertinent info. @ -[57-year-old male presenting with 3 days of worsening cough and dyspnea, history of asthma. Patient likely has a multifactorial dyspnea including asthma, fluid overload, and morbid obesity. Patient has a normal white blood cell count without leukocytosis. He has an elevated CO2 consistent with chronic CO2 retention, negative troponin, BNP is pending. Patient will require admission for COPD and asthma exacerbation] Undiagnosed new problem with uncertain prognosis? @ -[No] Drug Therapy requiring intensive monitoring for toxicity (Heparin, Nitro, Insulin, Cardizem)? @ -[No] Were any procedures done? @ -[No] Diagnosis/symptom? @ -dyspnea, COPDexacerbation] Acute, or Chronic, or Acute on Chronic? @ -[acute on chronic] Uncomplicated (without systemic symptoms) or Complicated (systemic symptoms)? @ -[default] Side effects of treatment? @ -[No] Exacerbation, Progression, or Severe Exacerbation? @ -[No] Poses a threat to life or bodily function? How? (Chest pain, USA, [place], pneumonia, PE, COPD, DKA, ARF, appy, cholecystitis, CVA, Diverticulitis, Homicidal, Suicidal, threat to staff... and all critical care pts) @ -[breasts, hypoxia, respiratory failure] (Han Tao) - Lab Data Lab Results 04/20/23 04/20/23 04/20/23 Range/Units 18:10 18:10 18:10 WBC 7.8 (3.8-10.6) k/uL RBC 5.14 (4.30-5.90) m/uL Hgb 14.5 (13.0-17.5) gm/dL Hct 43.2 (39.0-53.0) % MCV 83.9 (80.0-100.0) fL MCH 28.1 (25.0-35.0) pg MCHC 33.5 (31.0-37.0) g/dL RDW 14.3 (11.5-15.5) % Plt Count 244 (150-450) k/uL MPV 9.2 Neutrophils % (Manual) 74 % Lymphocytes % (Manual) 15 % Monocytes % (Manual) 9 % Eosinophils % (Manual) 2 % Neutrophils # (Manual) 5.77 (1.3-7.7) k/uL Lymphocytes # (Manual) 1.17 (1.0-4.8) k/uL Monocytes # (Manual) 0.70 (0-1.0) k/uL Eosinophils # (Manual) 0.16 (0-0.7) k/uL Nucleated RBCs 0 (0-0) /100 WBC Manual Slide Review Performed PT 9.8 (9.0-12.0) sec INR 0.9 (<1.2) APTT 25.0 (22.0-30.0) sec Sodium 138 (137-145) mmol/L Potassium 4.5 (3.5-5.1) mmol/L Chloride 97 L (98-107) mmol/L Carbon Dioxide 31 H (22-30) mmol/L Anion Gap 10 mmol/L BUN 20 (9-20) mg/dL Creatinine 0.58 L (0.66-1.25) mg/dL Est GFR (CKD-EPI)AfAm >90 (>60 ml/min/1.73 sqM) Est GFR (CKD-EPI)NonAf >90 (>60 ml/min/1.73 sqM) Glucose 116 H (74-99) mg/dL Plasma Lactic Acid Dionicio (0.7-2.0) mmol/L Calcium 9.4 (8.4-10.2) mg/dL Total Bilirubin 0.5 (0.2-1.3) mg/dL AST 29 (17-59) U/L ALT 22 (4-49) U/L Alkaline Phosphatase 69 (38-126) U/L Troponin I (0.000-0.034) ng/mL Total Protein 6.8 (6.3-8.2) g/dL Albumin 4.1 (3.5-5.0) g/dL Influenza Type A (PCR) (Not Detectd) Influenza Type B (PCR) (Not Detectd) RSV (PCR) (Not Detectd) SARS-CoV-2 (PCR) (Not Detectd) 04/20/23 04/20/23 04/20/23 Range/Units 18:10 18:10 18:10 WBC (3.8-10.6) k/uL RBC (4.30-5.90) m/uL Hgb (13.0-17.5) gm/dL Hct (39.0-53.0) % MCV (80.0-100.0) fL MCH (25.0-35.0) pg MCHC (31.0-37.0) g/dL RDW (11.5-15.5) % Plt Count (150-450) k/uL MPV Neutrophils % (Manual) % Lymphocytes % (Manual) % Monocytes % (Manual) % Eosinophils % (Manual) % Neutrophils # (Manual) (1.3-7.7) k/uL Lymphocytes # (Manual) (1.0-4.8) k/uL Monocytes # (Manual) (0-1.0) k/uL Eosinophils # (Manual) (0-0.7) k/uL Nucleated RBCs (0-0) /100 WBC Manual Slide Review PT (9.0-12.0) sec INR (<1.2) APTT (22.0-30.0) sec Sodium (137-145) mmol/L Potassium (3.5-5.1) mmol/L Chloride (98-107) mmol/L Carbon Dioxide (22-30) mmol/L Anion Gap mmol/L BUN (9-20) mg/dL Creatinine (0.66-1.25) mg/dL Est GFR (CKD-EPI)AfAm (>60 ml/min/1.73 sqM) Est GFR (CKD-EPI)NonAf (>60 ml/min/1.73 sqM) Glucose (74-99) mg/dL Plasma Lactic Acid Dionicio 1.2 (0.7-2.0) mmol/L Calcium (8.4-10.2) mg/dL Total Bilirubin (0.2-1.3) mg/dL AST (17-59) U/L ALT (4-49) U/L Alkaline Phosphatase (38-126) U/L Troponin I 0.017 (0.000-0.034) ng/mL Total Protein (6.3-8.2) g/dL Albumin (3.5-5.0) g/dL Influenza Type A (PCR) Not Detected (Not Detectd) Influenza Type B (PCR) Not Detected (Not Detectd) RSV (PCR) Not Detected (Not Detectd) SARS-CoV-2 (PCR) Not Detected (Not Detectd) Disposition <Kirstie Harden - Last Filed: 04/20/23 17:39> Is patient prescribed a controlled substance at d/c from ED?: No Time of Disposition: 21:25 <Han Tao - Last Filed: 04/20/23 21:25> Clinical Impression: Dyspnea, Acute exacerbation of chronic obstructive airways disease Disposition: ADMITTED IP TO THIS HOSP Condition: Stable Referrals: Alfredo Hope DO [Primary Care Provider] - 1-2 days
[2023-04-20 19:12] LABS: HCT 43.2 % (39.0-53.0); HGB 14.5 gm/dL (13.0-17.5); MCH 28.1 pg (25.0-35.0); MCHC 33.5 g/dL (31.0-37.0); MCV 83.9 fL (80.0-100.0); Mean Platelet Volume 9.2; Platelet Count 244 k/uL (150-450); RBC 5.14 m/uL (4.30-5.90); RDW 14.3 % (11.5-15.5); WBC 7.8 k/uL (3.8-10.6)
[2023-04-20 19:25] LABS: Eosinophils # (M) 0.16 k/uL (0-0.7); Lymphocytes # (M) 1.17 k/uL (1.0-4.8); Neutrophils # (M) 5.77 k/uL (1.3-7.7); Neutrophils % (M) 74 %; Nucleated Red Blood Cells 0 /100 WBC (0-0); Total Cells Counted 100
--- NOTE | 2023-04-20 19:25 | XR ---
EXAMINATION TYPE: XR chest 2V DATE OF EXAM: 04/20/2023 7:11 PM COMPARISON: Chest radiographs from 09/16/2022 TECHNIQUE: XR chest 2V Frontal and lateral views of the chest. CLINICAL INDICATION:Male, 57 years old with history of difficulty breathing; FINDINGS: Lungs/Pleura: There is no evidence of pleural effusion, focal consolidation, or pneumothorax. Pulmonary vascularity: Unremarkable. Heart/mediastinum: Cardiomediastinal silhouette is unremarkable. Musculoskeletal: No acute osseous pathology. IMPRESSION: Stable exam with poor penetration, cardiomegaly with a generalized hazy appearance of lungs which cou ld represent atelectasis, poor penetration or congestive heart failure.
[2023-04-20 19:31] LABS: ALT 22 U/L (4-49); AST 29 U/L (17-59); African American GFR (CKD) >90 (>60 ml/min/1.73 sqM); Albumin 4.1 g/dL (3.5-5.0); Alkaline Phosphatase 69 U/L (38-126); Anion Gap 10 mmol/L; Blood Urea Nitrogen 20 mg/dL (9-20); Calcium 9.4 mg/dL (8.4-10.2); Carbon Dioxide 31 mmol/L (22-30); Chloride 97 mmol/L (98-107); Non-African American GFR(CKD) >90 (>60 ml/min/1.73 sqM); Potassium 4.5 mmol/L (3.5-5.1); Sodium 138 mmol/L (137-145); Total Bilirubin 0.5 mg/dL (0.2-1.3); Total Protein 6.8 g/dL (6.3-8.2)
[2023-04-20 19:32] LABS: Glucose 116 mg/dL (74-99)
[2023-04-20 19:33] LABS: INR 0.9 (<1.2); Prothrombin Time 9.8 sec (9.0-12.0)
[2023-04-20] MEDS ORDERED: methylPREDNISolone SOD SUCCI 125 MG/2 ML VIAL IV STA (20:05)
[2023-04-20] MEDS ORDERED: IPRATROPIUM-ALBUTEROL 3 ML NEB INHALATION STA (20:05)
[2023-04-20] MEDS ORDERED: ALBUTEROL NEBULIZED 2.5 MG/3 ML INHALATION STA (20:05)
[2023-04-20] MEDS ORDERED: IPRATROPIUM-ALBUTEROL 3 ML NEB INHALATION PRN (21:17)
[2023-04-20] MEDS ORDERED: NALOXONE 0.4 MG/ML 1 ML VIAL IVP PRN (21:17)
[2023-04-20] MEDS: AZITHROMYCIN 500 MG TAB PO SCH (22:16)
[2023-04-21] MEDS: methylPREDNISolone SOD SUCCI 125 MG/2 ML VIAL IV SCH ×5 (00:46→23:51)
[2023-04-21] MEDS: ACETAMINOPHEN TAB 500 MG TAB PO PRN ×2 (07:50→20:16)
[2023-04-21] MEDS ORDERED: IPRATROPIUM-ALBUTEROL 3 ML NEB INHALATION SCH (08:00)
[2023-04-21] MEDS: SPIRONOLACTONE 25 MG TAB PO SCH (09:04)
[2023-04-21] MEDS: FUROSEMIDE 40 MG TAB PO SCH (09:04)
[2023-04-21] MEDS: ENOXAPARIN 40 MG/0.4 ML SYRINGE SQ SCH (10:27)
[2023-04-21] MEDS: MELOXICAM 7.5 MG TAB PO SCH (10:27)
[2023-04-21] MEDS: AZITHROMYCIN 500 MG TAB PO SCH (10:28)
[2023-04-21] MEDS: IPRATROPIUM-ALBUTEROL 3 ML NEB INHALATION SCH ×4 (11:39→20:37)
[2023-04-21] MEDS: FORMOTEROL FUMARATE 20 MCG/2 ML NEBU INHALATION SCH ×2 (11:39→20:37)
[2023-04-21] MEDS: BUDESONIDE 1 MG/2 ML NEBU INHALATION SCH ×2 (11:39→20:37)
[2023-04-21] MEDS: guaiFENesin 600 MG TABLET.ER PO SCH ×3 (12:34→20:16)
--- NOTE | 2023-04-21 17:41 | P.HPIM ---
History of Present Illness H&P Date: 04/21/23 Chief Complaint: Short of breath This is a 57-year-old patient of Dr. Hope. Has a history of COPD, obstructive sleep apnea had a UPPP. Osteoarthritis in multiple joints e specially the knees. Patient is chronically short of breath. Presence of worsening short of breath. Wheezing. Episodes of sweating and feeling chills. Went cough and not able to bring of any sputum. Appetite is good. No change in bowel pattern. A bit tired. Review of systems: GEN.: Tired, sweating and chills EYES: None HEENT: None NECK: None RESPIRATORY: As above CARDIOVASCULAR: None GASTROINTESTINAL: None GENITOURINARY: None MUSCULOSKELETAL: Joint pains LYMPHATICS: None HEMATOLOGICAL: None PSYCHIATRY: Anxious NEUROLOGICAL: None Past medical history to include: COPD, osteoarthritis, obstructive sleep apnea with UPPP Social history: Lives with brother. Smoked for about 14 years stopped in 2006. Currently not employed. Used to work at [employer]. Physical examination: VITAL SIGNS: 96.7, 103, 20, 146/73, 95% room air GENERAL: BMI 61.9, reclining in bed, short of breath EYES: Pupils equal. Conjunctiva normal. HEENT: External appearance of nose and ears normal, oral cavity grossly normal. NECK: JVD unable to assess masses not palpable. HEART: First and second heart sounds are normal; mild edema. LUNGS: Respiratory rate increased, diminished breath sounds prolonged expir ation some wheezing. ABDOMEN: Soft, nontender, liver spleen not palpable, no masses palpable. PSYCH: Alert and oriented x3; mood and affect normal NEUROLOGICAL: Cranial nerves grossly intact; no facial asymmetry, power and sensation grossly intact. LYMPHATICS: No lymph nodes palpable in the axilla and neck INVESTIGATIONS, reviewed in the clinical context: April 20: WBC 7.8 hemoglobin 14.5 platelets 244 potassium 4.5 BUN 2020 0.58 Influenza type A, B, RSV, COVID-19: Not detected EKG tracing personally reviewed by me-normal sinus rhythm. Rate 82 Chest x-ray film personally reviewed by me-underpenetrated due to morbid obesity. No obvious abnormality Assessment and plan: -Acute COPD exacerbation in an ex-smoker DuoNeb, nebulized Pulmicort and Perforomist. IV Solu-Medrol. -Acute tracheobronchitis Zithromax -Obstructive sleep apnea with the patient-previously had UPPP -Bilateral knee arthralgia Tylenol when necessary -Morbid obesity BMI 62.6 Weight loss measures -Chronic left lower extremity venous insufficiency with skin changes Past Medical History Past Medical History: Asthma, COPD, GERD/Reflux, Osteoarthritis (OA), Sleep Apnea/CPAP/BIPAP Additional Past Medical History / Comment(s): JEANIE/unable to tolerate cpap, pneumonias, bronchitis, chronic lower extremity lymphedema/redness/scabs, arthri tis in multiple joints/chronic pain/chronic back pain History of Any Multi-Drug Resistant Organisms: None Reported Past Surgical History: Adenoidectomy, Appendectomy, Orthopedic Surgery, Tonsillectomy Additional Past Surgical History / Comment(s): Bilateral knee arthroscopy, UVPPP, carpal tunnel surgery, right shoulder surgery, colonoscopy/benign polypectomy. Past Anesthesia/Blood Transfusion Reactions: No Reported Reaction Past Psychological History: No Psychological Hx Reported Additional Psychological History / Comment(s): Pt has a brother/nephew who live with him. Pt uses crutches to ambulate. He drives. He has a nebulizer. Smoking Status: Former smoker Past Alcohol Use History: None Reported Additional Past Alcohol Use History / Comment(s): Pt started smoking in 1979 and quit smoking 12/09/2006. Past Drug Use History: None Reported - Past Family History Father History Unknown: Yes Family Medical History: Cancer Additional Family Medical History / Comment(s): . Mother History Unknown: Yes Family Medical History: Deep Vein Thrombosis (DVT) Medications and Allergies Home Medications Medication Instructions Recorded Confirmed Type Furosemide [Lasix] 40 mg PO DAILY 12/25/20 04/20/23 History Spironolactone [Aldactone] 25 mg PO DAILY 12/25/20 04/20/23 History Meloxicam 7.5 mg PO DAILY 08/05/21 04/20/23 History Acetaminophen Tab [Tylenol Tab] 1,000 mg PO Q6HR PRN 04/20/23 04/20/23 History Allergies Allergy/AdvReac Type Severity Reaction Status Date / Time No Known Allergies Allergy Verified 04/20/23 20:37 Physical Exam Vitals: Vital Signs Temp Pulse Pulse Resp BP BP BP 04/21/23 08:37 113 H 04/21/23 08:32 97.7 F 113 H 20 145/81 04/21/23 08:28 112 H 04/21/23 07:34 97.6 F 111 H 20 129/84 04/21/23 02:00 98.2 F 18 148/95 04/20/23 23:00 96 20 145/50 04/20/23 22:46 20 04/20/23 22:00 91 20 132/78 04/20/23 21:29 104 H 04/20/23 21:11 104 H 04/20/23 21:10 104 H 04/20/23 20:59 100 04/20/23 19:15 22 04/20/23 17:46 96.7 F L 103 H 20 146/73 Pulse Ox 04/21/23 08:37 04/21/23 08:32 98 04/21/23 08:28 98 04/21/23 07:34 93 L 04/21/23 02:00 96 04/20/23 23:00 98 04/20/23 22:46 04/20/23 22:00 99 04/20/23 21:29 04/20/23 21:11 04/20/23 21:10 04/20/23 20:59 04/20/23 19:15 04/20/23 17:46 95 Intake and Output 04/20/23 04/21/23 04/21/23 22:59 06:59 14:59 Intake Total 400 Output Total 1500 Balance -1100 Intake: Oral 400 Output: Urine 1500 Other: Voiding Method Urinal Urinal Weight 190.055 kg Results CBC & Chem 7: 04/20/23 18:10 04/20/23 18:10 Labs: Abnormal Lab Results - Last 24 Hours (Table) 04/20/23 Range/Units 18:10 Chloride 97 L (98-107) mmol/L Carbon Dioxide 31 H (22-30) mmol/L Creatinine 0.58 L (0.66-1.25) mg/dL Glucose 116 H (74-99) mg/dL Thrombosis Risk Factor Assmnt - Choose All That Apply Any of the Below Risk Factors Present?: Yes Each Factor Represents 1 point: Age 41-60 years, Serious lung disease incl. pneumonia (< 1month) Thrombosis Risk Factor Assessment Total Risk Factor Score: 2 Thrombosis Risk Factor Assessment Level: Low Risk
[2023-04-22] MEDS: IPRATROPIUM-ALBUTEROL 3 ML NEB INHALATION SCH ×4 (00:17→11:07)
[2023-04-22] MEDS: methylPREDNISolone SOD SUCCI 125 MG/2 ML VIAL IV SCH (05:56)
[2023-04-22 07:22] VITALS: BP 125/74; RESP 20; TEMP 97.7
[2023-04-22] MEDS: BUDESONIDE 1 MG/2 ML NEBU INHALATION SCH (08:01)
[2023-04-22] MEDS: FORMOTEROL FUMARATE 20 MCG/2 ML NEBU INHALATION SCH (08:01)
[2023-04-22] MEDS: ENOXAPARIN 40 MG/0.4 ML SYRINGE SQ SCH (09:44)
[2023-04-22] MEDS: MELOXICAM 7.5 MG TAB PO SCH (09:45)
[2023-04-22] MEDS: guaiFENesin 600 MG TABLET.ER PO SCH (09:46)
[2023-04-22] MEDS: FUROSEMIDE 40 MG TAB PO SCH (09:46)
[2023-04-22] MEDS: AZITHROMYCIN 500 MG TAB PO SCH (09:46)
[2023-04-22] MEDS: SPIRONOLACTONE 25 MG TAB PO SCH (09:46)
[2023-04-22 11:17] VITALS: PULSE 116
--- NOTE | 2023-04-22 14:54 | P.DS ---
Providers Date of admission: 04/20/23 21:18 Expected date of discharge: 04/22/23 Attending physician: Kiran Quiroz Primary care physician: Alfredo Hope [facility] Course: Chief Complaint: Short of breath This is a 57-year-old patient of Dr. Hope. Has a history of COPD, obstructive sleep apnea had a UPPP. Osteoarthritis in multiple joints especially the knees. Patient is chronically short of breath. Presence of worsening short of breath. Wheezing. Episodes of sweating and feeling chills. Went cough and not able to bring of any sputum. Appetite is good. No change in bowel pattern. A bit tired. Admitted acute COPD exacerbation and acute tracheal bronchitis. Started on bronchodilators, steroids. Zithromax. April 22. Doing better. Lungs are sounding much better. Discussed at length with the patient. Weight loss discussed. Stop Lasix. Put on fluid restriction. Discharged on prednisone taper tapered and albuterol and Flovent inhaler. Slight tremors and tachycardia from bronchodilators. Discussion and discharge planning more than 35 minutes Past medical history to include: COPD, osteoarthritis, obstructive sleep apnea with UPPP Social history: Lives with brother. Smoked for about 14 years stopped in 2006. Currently not employed. Used to work at [employer]. Physical examination: VITAL SIGNS: 97.7, 107, 20, 125/74, 94% room air GENERAL: BMI 61.9, reclining in bed, comfortable EYES: Pupils equal. Conjunctiva normal. HEENT: External appearance of nose and ears normal, oral cavity grossly normal. NECK: JVD unable to assess masses not palpable. HEART: First and second heart sounds are normal; mild edema. LUNGS: Respiratory rate increased, proved air entry ABDOMEN: Soft, nontender, liver spleen not palpable, no masses palpable. PSYCH: Alert and oriented x3; mood and affect normal INVESTIGATIONS, reviewed in the clinical context: April 20: WBC 7.8 hemoglobin 14.5 platelets 244 potassium 4.5 BUN 2020 0.58 Influenza type A, B, RSV, COVID-19: Not detected EKG tracing personally reviewed by me-normal sinus rhythm. Rate 82 Chest x-ray film personally reviewed by me-underpenetrated due to morbid obesity. No obvious abnormality Assessment and plan: -Acute COPD exacerbation in an ex-smoker: Better DuoNeb, nebulized Pulmicort and Perforomist. IV Solu-Medrol. Discharge in albuterol when necessary, Flovent HFA 1 puff daily, prednisone taper, Mucinex -Acute tracheobronchitis Zithromax -Obstructive sleep apnea with the patient-previously had UPPP -Bilateral knee arthralgia Tylenol when necessary -Morbid obesity BMI 62.6 Weight loss measures -Chronic left lower extremity venous insufficiency with skin changes Disposition: Home Plan - Discharge Summary Discharge Rx Participant: No New Discharge Prescriptions: New Albuterol Sulfate [Albuterol Sulfate Hfa] 1 puff PO Q4-6H #8.5 gm Fluticasone Propionate [Flovent Hfa 220 mcg] 1 inhalation PO DAILY #12 gm predniSONE 10 mg PO DAILY #30 tab guaiFENesin [Mucinex] 600 mg PO QID #30 tab Continue Spironolactone [Aldactone] 25 mg PO DAILY Meloxicam 7.5 mg PO DAILY Acetaminophen Tab [Tylenol] 1,000 mg PO Q6HR PRN PRN Reason: Fever And/ Or Pain Discontinued Furosemide [Lasix] 40 mg PO DAILY Discharge Medication List Spironolactone [Aldactone] 25 mg PO DAILY 12/25/20 [History] Meloxicam 7.5 mg PO DAILY 08/05/21 [History] Acetaminophen Tab [Tylenol] 1,000 mg PO Q6HR PRN 04/20/23 [History] Albuterol Sulfate [Albuterol Sulfate Hfa] 1 puff PO Q4-6H #8.5 gm 04/22/23 [Rx] Fluticasone Propionate [Flovent Hfa 220 mcg] 1 inhalation PO DAILY #12 gm 04/22/23 [Rx] guaiFENesin [Mucinex] 600 mg PO QID #30 tab 04/22/23 [Rx] predniSONE 10 mg PO DAILY #30 tab 04/22/23 [Rx] Follow up Appointment(s)/Referral(s): Alfredo Hope DO [Primary Care Provider] - 1-2 days Patient Instructions/Handouts: COPD (Chronic Obstructive Pulmonary Disease) (DC) Activity/Diet/Wound Care/Special Instructions: fluid restrict 1800 cc/day Discharge Disposition: HOME SELF-CARE
== END 2023-04-22 12:28 | disposition home or self-care (01) ==
LOC: EC 17:19 → 6NMEDSUR 21:18
PROVIDERS: ADMIT Hospitalist; ATTEND Hospitalist
DX: J44.1 Chronic obstructive pulmonary disease with (acute) exacerbation (principal); J20.9 Acute bronchitis, unspecified; R60.0 Localized edema; K21.9 Gastro-esophageal reflux disease without esophagitis; G47.33 Obstructive sleep apnea (adult) (pediatric); M54.9 Dorsalgia, unspecified; G89.29 Other chronic pain; I87.2 Venous insufficiency (chronic) (peripheral); M25.562 Pain in left knee; M25.561 Pain in right knee; M15.9 Polyosteoarthritis, unspecified; E66.01 Morbid (severe) obesity due to excess calories; Z68.44 Body mass index [BMI] 60.0-69.9, adult; Z87.891 Personal history of nicotine dependence; Z79.899 Other long term (current) drug therapy; Z79.1 Long term (current) use of non-steroidal anti-inflammatories (NSAID); Z20.822 Contact with and (suspected) exposure to COVID-19
CPT/HCPCS: 96372 ×2; 96376 ×3; 96374; 99285; 36415; 94640 ×5; 94760 ×2; 93005; 83880; 80053; 83605; 84484; 85025; 85610; 85730; 87636; 71046; G0378 ×3; J2930 ×3; J1650 ×2

== ENCOUNTER 2023-05-28 12:03 | Observation (INO) | payer OTHER ==
[2023-05-28 12:55] LABS: Basophils % (A) 0 %; Eosinophils # (A) 0.2 k/uL (0-0.7); Eosinophils % (A) 2 %; HCT 42.5 % (39.0-53.0); HGB 14.4 gm/dL (13.0-17.5); Lymphocytes # (A) 1.2 k/uL (1.0-4.8); Lymphocytes % (A) 13 %; MCHC 33.8 g/dL (31.0-37.0); MCV 85.7 fL (80.0-100.0); Mean Platelet Volume 7.6; Monocytes # (A) 0.6 k/uL (0-1.0); Monocytes % (A) 6 %; Neutrophils # (A) 7.8 k/uL (1.3-7.7); Neutrophils % (A) 79 %; Platelet Count 280 k/uL (150-450); RBC 4.96 m/uL (4.30-5.90); RDW 14.8 % (11.5-15.5); WBC 9.9 k/uL (3.8-10.6)
--- NOTE | 2023-05-28 13:04 | ED ---
Chest Pain HPI - General Chief Complaint: Chest Pain Stated Complaint: sob, chest pain Time Seen by Provider: 05/28/23 12:10 Source: patient Mode of arrival: ambulatory Limitations: no limitations - History of Present Illness Initial Comments: 57-year-old male with past medical history of obesity, asthma resents emergency department reporting shortness of breath on exertion and chest pain. Symptoms started last night. He attempted to attend his physical therapy this morning. Physical therapist was concerned about his high heart rate in the 130s. Recommended that he be transferred to the hospital for evaluation. Denies fevers chills or cough. No history of coronary disease. Has chronic calf pain and swelling due to chronic vascular insufficiency. No history of DVT or PE. Pain is located substernal and is worse with deep inspiration. No other alleviating, precipitating or modifying factors - Related Data Home Medications Medication Instructions Recorded Confirmed Spironolactone [Aldactone] 25 mg PO DAILY 12/25/20 05/28/23 Meloxicam 7.5 mg PO DAILY 08/05/21 05/28/23 Acetaminophen Tab [Tylenol] 1,000 mg PO Q6HR PRN 04/20/23 05/28/23 Albuterol Sulfate [Albuterol 1 puff PO RT-Q4H 05/28/23 05/28/23 Sulfate Hfa] Previous Rx's Medication Instructions Recorded Budesonide-Formot 160-4.5 Mcg 2 puff INHALATION RT-BID #1 each 05/30/23 [Symbicort 160-4.5 Mcg Inhaler] predniSONE 10 mg PO DAILY #20 tab 05/30/23 Allergies Allergy/AdvReac Type Severity Reaction Status Date / Time No Known Allergies Allergy Verified 05/28/23 14:00 Review of Systems ROS Statement: Those systems with pertinent positive or pertinent negative responses have been documented in the HPI. ROS Other: All systems not noted in ROS Statement are negative. Past Medical History Past Medical History: Asthma, COPD, GERD/Reflux, Osteoarthritis (OA), Sleep Apnea/CPAP/BIPAP Additional Past Medical History / Comment(s): JEANIE/unable to tolerate cpap, pneumonias, bronchitis, chronic lower extremity lymphedema/redness/scabs, arthritis in multiple joints/chronic pain/chronic back pain History of Any Multi-Drug Resistant Organisms: None Reported Past Surgical History: Adenoidectomy, Appendectomy, Orthopedic Surgery, Tonsillectomy Additional Past Surgical History / Comment(s): Bilateral knee arthroscopy, UVPPP, carpal tunnel surgery, right shoulder surgery, colonoscopy/benign polypectomy. Past Anesthesia/Blood Transfusion Reactions: No Reported Reaction Past Psychological History: No Psychological Hx Reported Smoking Status: Former smoker Past Alcohol Use History: None Reported Past Drug Use History: None Reported - Past Family History Father History Unknown: Yes Family Medical History: Cancer Additional Family Medical History / Comment(s): . Mother History Unknown: Yes Family Medical History: Deep Vein Thrombosis (DVT) General Exam Limitations: no limitations General appearance: alert, in no apparent distress Head exam: Present: atraumatic, normocephalic, normal inspection Eye exam: Present: normal appearance, PERRL, EOMI. Absent: scleral icterus, conjunctival injection, periorbital swelling ENT exam: Present: normal exam, mucous membranes moist Neck exam: Present: normal inspection. Absent: tenderness, meningismus, lymphadenopathy Respiratory exam: Present: decreased breath sounds, other (tachpynia). Absent: respiratory distress, wheezes, rales, rhonchi, stridor Cardiovascular Exam: Present: normal rhythm, tachycardia, normal heart sounds. Absent: systolic murmur, diastolic murmur, rubs, gallop, clicks GI/Abdominal exam: Present: soft, normal bowel sounds. Absent: distended, tenderness, guarding, rebound, rigid Extremities exam: Present: normal inspection, full ROM, normal capillary refill. Absent: tenderness, pedal edema, joint swelling, calf tenderness Back exam: Present: normal inspection Neurological exam: Present: alert, oriented X3, CN II-XII intact Psychiatric exam: Present: normal affect, normal mood Skin exam: Present: warm, dry, intact, normal color. Absent: rash Course Vital Signs 05/28/23 05/28/23 05/28/23 12:08 14:58 15:07 Temperature 98.3 F Pulse Rate 111 H 98 101 H Respiratory 28 H 18 Rate Blood Pressure 134/80 121/70 O2 Sat by Pulse 96 96 Oximetry 05/28/23 05/28/23 15:08 15:57 Temperature Pulse Rate 94 98 Respiratory 18 Rate Blood Pressure 120/69 O2 Sat by Pulse 96 Oximetry Chest Pain MDM - MDM Was pt. sent in by a medical professional or institution (, [place], [facility], urgent care, hospital, or care home...) When possible be specific @ -No Did you speak to anyone other than the patient for history (EMS, parent, family, police, friend...)? What history was obtained from this source @ - No Did you review nursing and triage notes (agree or disagree)? Why? @ -I reviewed and agree with nursing and triage notes Were old charts reviewed (outside hosp., previous admission, EMS record, old EKG, old radiological studies, urgent care reports/EKG's, care home records)? Report findings @ -I reviewed patient's previous stress test from June 2022 Differential Diagnosis (chest pain, altered mental status, abdominal pain women, abdominal pain men, vaginal bleeding, weakness, fever, dyspnea, syncope, headache, dizziness, GI bleed, back pain, seizure, CVA, palpatations, mental health, musculoskeletal)? @ -Differential Chest Pain: Stable Angina, Unstable Angina, STEMI, NSTEMI Aortic Dissection, Pneumothorax, Musculoskeletal, Esophageal Spasm GERD, Cholecystitis, Pancreatitis, Zoster, this is not meant to be an all-inclusive list. EKG interpreted by me (3pts min.). @ -yes, and demonstrates sinus tachycardia with a rate of 113. ND interval 172. QRS 118. QTC 441. No acute ST segment elevations or depressions X-rays interpreted by me (1pt min.). @ -Yes and demonstrates no acute process CT interpreted by me (1pt min.). @ -None done U/S interpreted by me (1pt. min.). @ -None done What testing was considered but not performed or refused? (CT, X-rays, U/S, labs)? Why? @ -None What meds were considered but not given or refused? Why? @ -None Did you discuss the management of the patient with other professionals (professionals i.e. LORNA Torres, [facility], lab, RT, psych nurse, director social service, bottom wheeler, teacher, public safety officer, lining caser)? Give summary @ -Spoke with Dr. corley who will admit patient Was smoking cessation discussed for >3mins.? @ -No Was critical care preformed (if so, how long)? @ -No Were there social determinants of health that impacted care today? How? (Homelessness, low income, unemployed, alcoholism, drug addiction, transportation, low edu. Level, literacy, decrease access to med. care, skilled nursing, rehab)? @ -No Was there de-escalation of care discussed even if they declined (Discuss DNR or withdrawal of care, Hospice)? DNR status @ -No What co-morbidities impacted this encounter? (DM, HTN, Smoking, COPD, CAD, Cancer, CVA, ARF, Chemo, Hep., AIDS, mental health diagnosis, sleep apnea, morbid obesity)? @ -Morbid obesity Was patient admitted / discharged? Hospital course, mention meds given and route, prescriptions, significant lab abnormalities, going to OR and other pertinent info. @ -Upon arrival patient was placed in room 2. A thorough history and physical exam was performed. IV access is established. Laboratory studies were conducted. Laboratory studies demonstrated a normal troponin. D-dimer negative. Chest x-ray demonstrates no acute process. Recommended admission due to risk factors for coronary disease and we will trend troponins are patient was agreeable to admission. Spoke with Dr. Corley who will admit patient. Undiagnosed new problem with uncertain prognosis? @ -Yes Drug Therapy requiring intensive monitoring for toxicity (Heparin, Nitro, Insulin, Cardizem)? @ -No Were any procedures done? @ -No Diagnosis/symptom? @ -Acute chest pain, possible ACS Acute, or Chronic, or Acute on Chronic? @ -Acute Uncomplicated (without systemic symptoms) or Complicated (systemic symptoms)? @ -Complicated Side effects of treatment? @ -No Exacerbation, Progression, or Severe Exacerbation? @ -No Poses a threat to life or bodily function? How? (Chest pain, [place], MA, pneumonia, PE, COPD, DKA, ARF, appy, cholecystitis, CVA, Diverticulitis, Homicidal, Suicidal, threat to staff... and all critical care pts) @ -Yes patient presents with shortness of breath and chest pain which may represent acute coronary event Disposition Clinical Impression: Chest pain, Obesity, Dyspnea, Tachycardia Disposition: ADMITTED IP TO THIS [facility] Condition: Stable Is patient prescribed a controlled substance at d/c from ED?: No Time of Disposition: 14:10 Decision to Admit Reason: Admit from EC Decision Date: 05/28/23 Decision Time: 14:10
[2023-05-28 13:07] LABS: INR 0.9 (<1.2); Prothrombin Time 9.8 sec (9.0-12.0)
[2023-05-28 13:10] LABS: ALT 29 U/L (4-49); African American GFR (CKD) >90 (>60 ml/min/1.73 sqM); Albumin 4.1 g/dL (3.5-5.0); Anion Gap 8 mmol/L; Blood Urea Nitrogen 13 mg/dL (9-20); Calcium 9.3 mg/dL (8.4-10.2); Carbon Dioxide 31 mmol/L (22-30); Chloride 96 mmol/L (98-107); Glucose 158 mg/dL (74-99); Magnesium 1.8 mg/dL (1.6-2.3); Non-African American GFR(CKD) >90 (>60 ml/min/1.73 sqM); Sodium 135 mmol/L (137-145); Total Protein 6.7 g/dL (6.3-8.2)
[2023-05-28 13:13] LABS: AST 45 U/L (17-59); Alkaline Phosphatase 78 U/L (38-126); Potassium 4.7 mmol/L (3.5-5.1)
--- NOTE | 2023-05-28 13:13 | XR ---
EXAMINATION TYPE: XR chest 2V DATE OF EXAM: 05/28/2023 COMPARISON: 04/20/2023 HISTORY: Shortness of breath TECHNIQUE: Frontal and lateral views of the chest are obtained. FINDINGS: Scattered senescent parenchymal changes noted. Hyperinflation compatible with COPD. No evidence for infiltrate. No evidence for atelectasis. Heart size is stable. Mediastinal structures are stable and grossly unremarkable. No evidence for hilar prominence. Degenerative changes dorsal spine. IMPRESSION: 1. No evidence for acute pulmonary disease.
[2023-05-28 13:17] LABS: NT-Pro-B-Type Natriuretic Pept 21 pg/mL
[2023-05-28] MEDS ORDERED: ASPIRIN 81 MG PO STA (14:08)
[2023-05-28] MEDS ORDERED: NALOXONE 0.4 MG/ML 1 ML VIAL IV PRN (14:10)
[2023-05-28] MEDS ORDERED: IPRATROPIUM-ALBUTEROL 3 ML NEB INHALATION STA (14:21)
[2023-05-28] MEDS ORDERED: methylPREDNISolone SOD SUCCI 125 MG/2 ML VIAL IV STA (14:25)
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
[2023-05-28 16:28] LABS: Glucose,Whole Blood 124 mg/dL (70-110)
[2023-05-28] MEDS: methylPREDNISolone SOD SUCCI 40 MG/ML 1 ML VIAL IV SCH (19:51)
[2023-05-28] MEDS: ALBUTEROL NEBULIZED 2.5 MG/3 ML INHALATION SCH ×2 (19:51→20:21)
[2023-05-28] MEDS: ACETAMINOPHEN TAB 325 MG TAB PO PRN (20:08)
[2023-05-28 20:10] LABS: Glucose,Whole Blood 197 mg/dL (70-110)
[2023-05-28] MEDS: SYMBICORT 160-4.5 MCG INHALER INHALATION SCH (20:21)
[2023-05-28] MEDS ORDERED: ALBUTEROL NEBULIZED 2.5 MG/3 ML INHALATION PRN (20:27)
[2023-05-28] MEDS ORDERED: DEXTROSE 50% SYRINGE 50 ML IVP PRN ×2 (20:33)
[2023-05-28] MEDS: INSULIN ASPART (NovoLOG) 100 UNIT/ML VIAL SQ SCH (20:52)
[2023-05-29] MEDS ORDERED: NYSTATIN 100,000 UNIT/GM POWD 15 GM TOPICAL PRN (06:00)
[2023-05-29 06:09] LABS: Glucose,Whole Blood 190 mg/dL (70-110)
[2023-05-29] MEDS: INSULIN ASPART (NovoLOG) 100 UNIT/ML VIAL SQ SCH ×4 (06:33→19:41)
[2023-05-29 08:45] LABS: Basophils % (A) 0 %; Eosinophils % (A) 0 %; HCT 44.7 % (39.0-53.0); HGB 14.5 gm/dL (13.0-17.5); Hypochromasia Slight; Lymphocytes # (A) 0.7 k/uL (1.0-4.8); Lymphocytes % (A) 6 %; MCH 28.4 pg (25.0-35.0); MCHC 32.5 g/dL (31.0-37.0); MCV 87.4 fL (80.0-100.0); Mean Platelet Volume 7.7; Monocytes # (A) 0.3 k/uL (0-1.0); Monocytes % (A) 3 %; Neutrophils # (A) 9.9 k/uL (1.3-7.7); Neutrophils % (A) 91 %; Platelet Count 300 k/uL (150-450); RBC 5.12 m/uL (4.30-5.90); RDW 14.5 % (11.5-15.5); WBC 10.9 k/uL (3.8-10.6)
[2023-05-29] MEDS: ALBUTEROL NEBULIZED 2.5 MG/3 ML INHALATION SCH ×4 (08:52→20:16)
[2023-05-29] MEDS: SYMBICORT 160-4.5 MCG INHALER INHALATION SCH ×2 (08:52→20:16)
[2023-05-29 09:05] LABS: African American GFR (CKD) >90 (>60 ml/min/1.73 sqM); Anion Gap 10 mmol/L; Blood Urea Nitrogen 13 mg/dL (9-20); Carbon Dioxide 28 mmol/L (22-30); Chloride 102 mmol/L (98-107); Glucose 160 mg/dL (74-99); Non-African American GFR(CKD) >90 (>60 ml/min/1.73 sqM); Potassium 4.4 mmol/L (3.5-5.1); Sodium 140 mmol/L (137-145)
[2023-05-29] MEDS: methylPREDNISolone SOD SUCCI 40 MG/ML 1 ML VIAL IV SCH ×2 (09:22→19:38)
[2023-05-29] MEDS: SPIRONOLACTONE 25 MG TAB PO SCH (09:22)
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
[2023-05-29 14:38] LABS: Chol/HDL Ratio 3.53 Ratio; LDL Cholesterol,Calculated 102.2 mg/dL (0.0-131.0); VLDL Calculation 15.44 mg/dL (5.00-40.00)
--- NOTE | 2023-05-29 15:19 | CA ---
Transthoracic Echo Report Name: Alfredo Rosas Age: 57 Gender: M : 1965 Exam Date: 05/29/2023 13:50 Exam Location: [facility] Ht (in): 68 Wt (lb): 420 Ordering Physician: Jennifer Srivastava Attending/Referring Phys: [id number], Carola Barrel Raiser Omayra Castro RDCS Procedure CPT: Indications: LVH Cardiac Hx: Technical Quality: Technically difficult study Contrast 1: Total Dose (mL): Contrast 2: Total Dose (mL): MEASUREMENTS (Male / Female) Normal Values 2D ECHO LV Diastolic Diameter PLAX 5.1 cm 4.2 - 5.9 / 3.9 - 5.3 cm LV Systolic Diameter PLAX 3.4 cm IVS Diastolic Thickness 1.8 cm 0.6 - 1.0 / 0.6 - 0.9 cm LVPW Diastolic Thickness 1.7 cm 0.6 - 1.0 / 0.6 - 0.9 cm LV Relative Wall Thickness 0.7 RV Internal Dim ED PLAX 3.8 cm LA Systolic Diameter LX 4.1 cm 3.0 - 4.0 / 2.7 - 3.8 cm M-MODE Aortic Root Diameter MM 3.6 cm MV E Point Septal Separation 0.6 cm AV Cusp Separation MM 2.2 cm FINDINGS Left Ventricle Left ventricular ejection fraction is estimated at 55-60 %. Left ventricular cavity size normal. Severe concentric left ventricular hypertrophy. Normal left ventricular wall motion. Right Ventricle Mild right ventricular dilatation. Unable to estimate the right ventricular systolic pressure. Right Atrium Right atrium not well visualized. Left Atrium Mildly increased left atrial diameter. Mitral Valve Structurally normal mitral valve. No mitral stenosis, regurgitation or prolapse. Aortic Valve Trileaflet aortic valve. No aortic valve stenosis or regurgitation. Tricuspid Valve Tricuspid valve not well visualized. Pulmonic Valve Pulmonic valve not well visualized. Pericardium Normal pericardium. No pericardial effusion. Aorta Normal size aortic root and proximal ascending aorta. CONCLUSIONS Technically difficult study Left ventricular ejection fraction 55-60% Severe increased left ventricular wall thickness Mild right ventricular dilation Mild increased left atrial diameter Previewed by: Dr. Rajinder Alexis DO (Electronically Signed) Final Date: 29 May 2023 15:18
[2023-05-29 16:44] LABS: Glucose,Whole Blood 219 mg/dL (70-110)
[2023-05-29] MEDS: ACETAMINOPHEN TAB 325 MG TAB PO PRN (17:16)
[2023-05-29 19:41] LABS: Glucose,Whole Blood 243 mg/dL (70-110)
[2023-05-30 06:18] LABS: Glucose,Whole Blood 154 mg/dL (70-110)
[2023-05-30] MEDS: INSULIN ASPART (NovoLOG) 100 UNIT/ML VIAL SQ SCH ×2 (06:29→11:46)
[2023-05-30] MEDS: ALBUTEROL NEBULIZED 2.5 MG/3 ML INHALATION SCH ×3 (07:49→15:18)
[2023-05-30] MEDS: SYMBICORT 160-4.5 MCG INHALER INHALATION SCH (07:50)
[2023-05-30] MEDS: methylPREDNISolone SOD SUCCI 40 MG/ML 1 ML VIAL IV SCH (08:32)
[2023-05-30] MEDS: SPIRONOLACTONE 25 MG TAB PO SCH (08:32)
[2023-05-30 08:42] VITALS: TEMP 98.1
[2023-05-30 11:47] LABS: Glucose,Whole Blood 134 mg/dL (70-110)
[2023-05-30 12:49] LABS: Basophils % (A) 0 %; Eosinophils % (A) 0 %; HCT 45.4 % (39.0-53.0); HGB 14.6 gm/dL (13.0-17.5); Hypochromasia Slight; Lymphocytes % (A) 8 %; MCH 28.2 pg (25.0-35.0); MCHC 32.1 g/dL (31.0-37.0); MCV 87.7 fL (80.0-100.0); Mean Platelet Volume 7.4; Monocytes # (A) 0.4 k/uL (0-1.0); Monocytes % (A) 3 %; Neutrophils # (A) 11.6 k/uL (1.3-7.7); Neutrophils % (A) 88 %; Platelet Count 258 k/uL (150-450); RBC 5.18 m/uL (4.30-5.90); RDW 14.6 % (11.5-15.5); WBC 13.1 k/uL (3.8-10.6)
[2023-05-30 12:57] LABS: ALT 24 U/L (4-49); AST 21 U/L (17-59); African American GFR (CKD) >90 (>60 ml/min/1.73 sqM); Alkaline Phosphatase 92 U/L (38-126); Anion Gap 7 mmol/L; Blood Urea Nitrogen 18 mg/dL (9-20); Calcium 9.1 mg/dL (8.4-10.2); Carbon Dioxide 33 mmol/L (22-30); Chloride 98 mmol/L (98-107); Glucose 146 mg/dL (74-99); Non-African American GFR(CKD) >90 (>60 ml/min/1.73 sqM); Potassium 4.9 mmol/L (3.5-5.1); Sodium 138 mmol/L (137-145); Total Bilirubin 0.5 mg/dL (0.2-1.3); Total Protein 6.6 g/dL (6.3-8.2)
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
[2023-05-30 16:41] LABS: Glucose,Whole Blood 169 mg/dL (70-110)
[2023-05-30 17:51] VITALS: BP 116/70; PULSE 90; RESP 18
[2023-05-30 20:48] LABS: Albumin 4.1 d/dL (3.8-4.9); Protein, Total 6.2 d/dL (6.2-8.2)
[2023-05-31 14:01] LABS: Free Kappa Lt Chain Qnt, Serum 1.73 mg/dL (0.33-1.94)
[2023-05-31 16:57] LABS: Gamma Globulin 0.48 d/dL (0.70-1.50)
== END 2023-05-30 17:58 | disposition home or self-care (01) ==
LOC: EC 12:03 → 3SCARD 14:10
PROVIDERS: ADMIT Internal Medicine; ATTEND Internal Medicine
DX: R07.89 Other chest pain (principal); J45.901 Unspecified asthma with (acute) exacerbation; R00.0 Tachycardia, unspecified; J44.9 Chronic obstructive pulmonary disease, unspecified; G47.33 Obstructive sleep apnea (adult) (pediatric); I11.9 Hypertensive heart disease without heart failure; K21.9 Gastro-esophageal reflux disease without esophagitis; I99.8 Other disorder of circulatory system; G89.29 Other chronic pain; M54.9 Dorsalgia, unspecified; M13.0 Polyarthritis, unspecified; I89.0 Lymphedema, not elsewhere classified; E66.01 Morbid (severe) obesity due to excess calories; Z68.44 Body mass index [BMI] 60.0-69.9, adult; Z79.1 Long term (current) use of non-steroidal anti-inflammatories (NSAID); Z79.899 Other long term (current) drug therapy; Z79.51 Long term (current) use of inhaled steroids; Z79.52 Long term (current) use of systemic steroids; Z87.01 Personal history of pneumonia (recurrent); Z86.010 Personal history of colon polyps; Z87.891 Personal history of nicotine dependence; Z98.890 Other specified postprocedural states; Z80.9 Family history of malignant neoplasm, unspecified; Z82.49 Family history of ischemic heart disease and other diseases of the circulatory system
CPT/HCPCS: 96376 ×3; 96374; 99285; 36415; 94640 ×4; 93005; 93306; 85379; 83880; 80061; 80053 ×2; 80048; 83735; 84484; 85025 ×3; 85610; 85730; 84165; 83883; 83036; 71046; G0378 ×3; J2920 ×3; J2930

== ENCOUNTER 2023-06-17 09:26 | Day surgery (SDC) | payer OTHER ==
[~2023-06-17 09:26] MED LIST changes: +ALPRAZolam 0.25 MG TAB PO PRN; +ALPRAZolam 0.5 MG TAB PO PRN; +ASPIRIN 325 MG TAB PO STA; +ATORVASTATIN 80 MG TAB PO STA; +HEPARIN SODIUM,PORCINE (1 ML) 2,500 UNIT in SODIUM CHLORIDE 0.9% 250 ML IRRIGATION PRN; +HEPARIN SODIUM,PORCINE 10,000 UNIT in SODIUM CHLORIDE 0.9% 1,000 ML IRRIGATION PRN; -LIDOCAINE 1% (10MG/ML) FOR IV START INTRADERMA PRN; +NITROGLYCERIN SL TABS 0.4 MG TAB SUBLINGUAL PRN; +SODIUM CHLORIDE 0.9% 1,000 ML in EMPTY BAG 1 BAG IV SCH
[2023-06-17] MEDS ORDERED: ASPIRIN 81 MG ONE (09:47)
[2023-06-17 09:54] VITALS: RESP 18; TEMP 98.6
[2023-06-17] MEDS ORDERED: VERAPAMIL 2.5 MG/ML 2 ML AMP ONE (10:45)
[2023-06-17] MEDS ORDERED: HEPARIN SODIUM 1,000 UN/ML (10ML VL) ONE (10:53)
[2023-06-17] MEDS ORDERED: fentaNYL (PF) 50 MCG/ML 2 ML AMP ONE (10:53)
[2023-06-17] MEDS ORDERED: MIDAZOLAM 2 MG/2 ML VIAL IVP ONE (11:10)
[2023-06-17] MEDS ORDERED: fentaNYL (PF) 50 MCG/ML 2 ML AMP IVP ONE (11:11)
[2023-06-17] MEDS ORDERED: LIDOCAINE 1% INJ 10MG/ML (20 ML MDV) ONE (11:14)
[2023-06-17] MEDS ORDERED: LIDOCAINE 1% INJ 10MG/ML (20 ML MDV) SQ ONE (11:15)
[2023-06-17] MEDS ORDERED: VERAPAMIL SYRINGE (5 MG/10 ML) INTRAARTER ONE (11:18)
[2023-06-17] MEDS ORDERED: HEPARIN SODIUM 1,000 UN/ML (10ML VL) IVP ONE (11:28)
[2023-06-17] MEDS ORDERED: IOPAMIDOL-370 100ML BTL INJ ONE (11:46)
[2023-06-17 11:50] LABS: O2 Sat Blood Gas 75.6 %
[2023-06-17 11:53] LABS: O2 Sat Blood Gas 74.3 %
[2023-06-17 11:54] LABS: O2 Sat Blood Gas 95.3 %
--- NOTE | 2023-06-17 11:57 | P.CARDCATH ---
Description of Procedure: PROCEDURES PERFORMED: Left heart catheterization, right heart catheterization, bilateral coronary angiography, ultrasound guided arterial access INDICATION: Dyspnea on exertion, chest pain concerning for unstable angina CONSENT:I have discussed the risks, benefits and alternative therapies for the above-mentioned procedure and for both sedation/analgesia as well as necessary blood product administration, if indicated, as they pertain to this patient. The patient has indicated understanding and acceptance of the risks and proc edures discussed. PROCEDURE: After the risks, benefits and alternatives of the above mentioned procedure explained in detail with the patient, informed consent was obtained. Patient was taken to the catheterization lab and prepped and draped in usual fashion. Ultrasound guidance was used to assess for arterial access. 1% lidocaine was used to anesthetize the right radial artery. A 6-Jamaican sheath was placed in the right radial artery using modified Seldinger technique and ultrasound guidance. An additional 6-Jamaican sheath was placed in the right brachial vein using ultrasound guidance. A 6-Jamaican [place]-De catheter was inserted into the right atrium, right ventricle, pulmonary artery and pulmonary A wedge positions. Pressure measurements and oxygen saturations were obtained. The catheter was then removed. Left coronary angiography was performed with a 5-Jamaican JL 3.5 catheter and right coronary angiography was performed with a 6- Jamaican AL 0.75 guide catheter in various views given some tortuosity. A 5- Jamaican FR5 catheter was inserted into the left ventricle and pressure measurements were obtained. The right radial sheath was removed and a TR band was placed with hemostasis achieved. The brachial sheath was removed and pressure held with hemostasis achieved. The patient tolerated the procedure well. Patient was transported back to the post catheterization holding area in stable condition. Conscious Sedation: Patient was monitored under the direct supervision of myself for conscious sedation using Versed and fentanyl for a total duration of 32 minutes HEMODYNAMICS: Aorta: 118/78 LV: 123/12, LVEDP 16 PCWP: 12 PA: 40/13 mean 25 RV: 42/1, RVEDP 7 RA: 5 Right radial oxygen saturation: 95% Right Atrium oxygen saturation: 74.3% Pulmonary artery oxygen saturation: 75.6% Cardiac output by Zac: 9.9 L/m Cardiac index by Zac: 3.5 L/min/m2 Cardiac output by thermodilution: 10.6 L/m Cardiac index by thermodilution 3.7 L/m/m SELECTIVE CORONARY ARTERIOGRAPHY: LEFT MAIN: The left main is a large caliber vessel which bifurcates into the LAD and circumflex. There is no significant stenosis. LEFT ANTERIOR DESCENDING CORONARY ARTERY: LAD is a large caliber vessel which wraps around to the apex. There is no significant stenosis. LEFT CIRCUMFLEX CORONARY ARTERY: Left circumflex is a moderate caliber vessel without significant stenosis. RIGHT CORONARY ARTERY: The right coronary artery is a large caliber vessel which gives off a PDA and PLV branch and is the dominant vessel. There is no significant stenosis. FINAL IMPRESSION: 1. Normal coronary arteries as described above. 2. Minimally elevated left sided filling pressures with relatively normal right-sided pressures 3. Normal cardiac output, cardiac index PLAN: 1. Aggressive risk factor modification per most recent ACC/AHA guidelines. 2. Follow-up in the office in 1-2 weeks.
[2023-06-17 15:29] VITALS: BP 118/57; PULSE 78
== END 2023-06-17 15:38 | disposition home or self-care (01) ==
LOC: CATHCVL 09:26
PROVIDERS: ATTEND Internal Medicine
DX: R07.89 Other chest pain (principal); J45.909 Unspecified asthma, uncomplicated; E66.01 Morbid (severe) obesity due to excess calories; I50.32 Chronic diastolic (congestive) heart failure; G47.33 Obstructive sleep apnea (adult) (pediatric); F17.210 Nicotine dependence, cigarettes, uncomplicated
CPT/HCPCS: 93460; 76937; 85018; 82810; C1769; C1894; C1751; J2250; J2001; J3010; J1644; Q9967

== ENCOUNTER 2023-06-21 03:43 | Inpatient (IN) | payer MEDICARE, OTHER ==
--- NOTE | 2023-06-21 04:09 | ED ---
SOB HPI - General Source: patient Mode of arrival: wheelchair Limitations: no limitations - History of Present Illness MD Complaint: shortness of breath, cough Onset/Timin -: hour(s) Severity scale (1-10): 0 Consistency: constant Improves With: nothing Worsens With: nothing Known History Of: asthma Associated Symptoms: cough Treatments Prior to Arrival: none - Related Data Home Oxygen Therapy: No <Dino Sarabia - Last Filed: 06/21/23 07:22> <Doyle Davidson - Last Filed: 06/21/23 09:49> - General Chief Complaint: Shortness of Breath Stated Complaint: SOB Time Seen by Provider: 06/21/23 03:59 - History of Present Illness Initial Comments: This patient is a 57-year-old man with history of asthma who presents with complaint that he feels like his shortness of breath is worsening. When asked how long he states basically all his life but this flareup going on for the past 2 hours. The patient has not had any associated fever or chills. No change in his cough which is chronic and nonproductive. No change in urination or bowel movements. No leg pain or swelling. He states that his last albuterol use was about 6 hours ago. Currently not taking any steroids for his asthma. Patient also relates that within the past month he had a heart cath for his dyspnea and was told that it doesn't appear to be heart related. (Dino Sarabia) - Related Data Home Medications Medication Instructions Recorded Confirmed Spironolactone [Aldactone] 25 mg PO DAILY 12/25/20 06/17/23 Meloxicam 7.5 mg PO DAILY 08/05/21 06/17/23 Fluticasone Propionate 110 Mcg 2 puff INHALATION QAM 06/11/23 06/17/23 [Flovent 110 Mcg Inhaler] Isosorbide(Unknown Dose) 06/11/23 Metoprolol Succ(Unknown Dose) 06/11/23 Aspirin 81 mg PO DAILY PRN 06/17/23 06/17/23 Previous Rx's Medication Instructions Recorded Budesonide-Formot 160-4.5 Mcg 2 puff INHALATION RT-BID #1 each 05/30/23 [Symbicort 160-4.5 Mcg Inhaler] Allergies Allergy/AdvReac Type Severity Reaction Status Date / Time No Known Allergies Allergy Verified 06/21/23 03:50 Review of Systems ROS Other: All systems not noted in ROS Statement are negative. Constitutional: Denies: fever, chills, weakness Respiratory: Reports: cough, dyspnea, wheezes. Denies: hemoptysis, stridor Cardiovascular: Denies: chest pain, palpitations, edema Gastrointestinal: Denies: abdominal pain, nausea, vomiting, diarrhea, constipation, melena, hematochezia Genitourinary: Denies: dysuria, hematuria Musculoskeletal: Denies: back pain Skin: Denies: rash Neurological: Denies: headache, weakness, numbness <Dino Sarabia - Last Filed: 06/21/23 07:22> ROS Other: All systems not noted in ROS Statement are negative. <Doyle Davidson - Last Filed: 06/21/23 09:49> ROS Statement: Those systems with pertinent positive or pertinent negative responses have been documented in the HPI. Past Medical History Past Medical History: Asthma, COPD, GERD/Reflux, Osteoarthritis (OA), Sleep Apnea/CPAP/BIPAP Additional Past Medical History / Comment(s): JEANIE/unable to tolerate cpap, pneumonias, bronchitis, chronic lower extremity lymphedema/redness/scabs, art hritis in multiple joints/chronic pain/chronic back pain History of Any Multi-Drug Resistant Organisms: None Reported Past Surgical History: Adenoidectomy, Appendectomy, Orthopedic Surgery, Tonsillectomy Additional Past Surgical History / Comment(s): Bilateral knee arthroscopy, UVPPP, carpal tunnel surgery, right shoulder surgery, colonoscopy/benign polypectomy. Past Anesthesia/Blood Transfusion Reactions: No Reported Reaction Past Psychological History: No Psychological Hx Reported Smoking Status: Former smoker Past Alcohol Use History: None Reported Past Drug Use History: None Reported - Past Family History Father History Unknown: Yes Family Medical History: Cancer Additional Family Medical History / Comment(s): . Mother History Unknown: Yes Family Medical History: Deep Vein Thrombosis (DVT) <Dino Sarabia - Last Filed: 06/21/23 07:22> General Exam Limitations: no limitations General appearance: alert, in distress, obese Head exam: Present: atraumatic, normocephalic Eye exam: Present: normal appearance. Absent: scleral icterus, conjunctival injection ENT exam: Present: normal oropharynx Neck exam: Present: normal inspection Respiratory exam: Present: respiratory distress, wheezes. Absent: rales, rhonchi, stridor, accessory muscle use, decreased breath sounds, prolonged expiratory Cardiovascular Exam: Present: regular rate, normal rhythm, normal heart sounds. Absent: systolic murmur, diastolic murmur, rubs, gallop GI/Abdominal exam: Present: soft. Absent: distended, tenderness, guarding, rebound, rigid, mass Extremities exam: Present: normal inspection, normal capillary refill. Absent: pedal edema, calf tenderness Back exam: Present: normal inspection. Absent: CVA tenderness (R), CVA tenderness (L) Neurological exam: Present: alert. Absent: oriented X3, CN II-XII intact Skin exam: Present: warm, dry, intact, normal color. Absent: rash <Dino Saraiba - Last Filed: 06/21/23 07:22> Course Vital Signs 06/21/23 06/21/23 06/21/23 03:48 04:48 05:45 Temperature 98.7 F Pulse Rate 102 H 82 Respiratory 26 H 16 16 Rate Blood Pressure 156/78 131/94 O2 Sat by Pulse 97 94 L Oximetry 06/21/23 06/21/23 06/21/23 06:26 08:11 08:21 Temperature Pulse Rate 96 90 94 Respiratory 14 Rate Blood Pressure 125/82 O2 Sat by Pulse 95 Oximetry 06/21/23 08:59 Temperature Pulse Rate 125 H Respiratory Rate Blood Pressure O2 Sat by Pulse 90 L Oximetry Medical Decision Making - Lab Data Result diagrams: 06/21/23 04:20 06/21/23 04:20 - EKG Data -: EKG Interpreted by Me EKG shows normal: sinus rhythm, axis (Normal), intervals (Normal), QRS complexes (RSR prime, possible right ventricular conduction delay), ST-T waves (Normal) Rate: normal (Rate 97 bpm) <Dino Sarabia - Last Filed: 06/21/23 07:22> - Lab Data Result diagrams: 06/21/23 04:20 06/21/23 04:20 <Doyle Davidson - Last Filed: 06/21/23 09:49> - Medical Decision Making Was patient admitted / discharged? Hospital course, mention meds given and route, prescriptions, significant lab abnormalities, going to OR and other pertinent info. @ -Patient was signed out to me by Dr. Yancey at 7 AM. I went back and reevaluated the patient he still stated he was in significant respiratory distress. Patient got up to ambulate heart rate went up to 125 and his pulse ox was down to 90% and he stated he was significantly more short of breath and his baseline. I spoke with Dr. Jackson agreed to admit the patient admitted the patient and I wrote admitting orders Undiagnosed new problem with uncertain prognosis? @ -No Drug Therapy requiring intensive monitoring for toxicity (Heparin, Nitro, Insulin, Cardizem)? @ -No Were any procedures done? @ -No Diagnosis/symptom? @ -Dyspnea Acute, or Chronic, or Acute on Chronic? @ -Acute Uncomplicated (without systemic symptoms) or Complicated (systemic symptoms)? @ -Complicated Side effects of treatment? @ -No Exacerbation, Progression, or Severe Exacerbation? @ -No Poses a threat to life or bodily function? How? (Chest pain, [place], [place], pneumonia, PE, COPD, DKA, ARF, appy, cholecystitis, CVA, Diverticulitis, Homicidal, Suicidal, threat to staff... and all critical care pts) @ -Yes this lead to hypoxia and end organ dysfunction (Doyle Davidson) - Lab Data Lab Results 06/21/23 06/21/23 06/21/23 Range/Units 04:20 04:20 04:20 WBC 9.7 (3.8-10.6) k/uL RBC 4.76 (4.30-5.90) m/uL Hgb 13.4 (13.0-17.5) gm/dL Hct 40.7 (39.0-53.0) % MCV 85.5 (80.0-100.0) fL MCH 28.2 (25.0-35.0) pg MCHC 33.0 (31.0-37.0) g/dL RDW 14.7 (11.5-15.5) % Plt Count 247 (150-450) k/uL MPV 7.5 Neutrophils % 78 % Lymphocytes % 12 % Monocytes % 6 % Eosinophils % 3 % Basophils % 0 % Neutrophils # 7.6 (1.3-7.7) k/uL Lymphocytes # 1.2 (1.0-4.8) k/uL Monocytes # 0.6 (0-1.0) k/uL Eosinophils # 0.3 (0-0.7) k/uL Basophils # 0.0 (0-0.2) k/uL PT 9.9 (9.0-12.0) sec INR 0.9 (<1.2) APTT 24.9 (22.0-30.0) sec D-Dimer (<0.60) mg/L FEU VBG pH (7.31-7.41) VBG pCO2 (37-51) mmHg VBG HCO3 (24-28) mmol/L Sodium 135 L (137-145) mmol/L Potassium 4.3 (3.5-5.1) mmol/L Chloride 99 (98-107) mmol/L Carbon Dioxide 30 (22-30) mmol/L Anion Gap 6 mmol/L BUN 11 (9-20) mg/dL Creatinine 0.62 L (0.66-1.25) mg/dL Est GFR (CKD-EPI)AfAm >90 (>60 ml/min/1.73 sqM) Est GFR (CKD-EPI)NonAf >90 (>60 ml/min/1.73 sqM) Glucose 164 H (74-99) mg/dL Plasma Lactic Acid Dionicio (0.7-2.0) mmol/L Calcium 9.5 (8.4-10.2) mg/dL Total Bilirubin 0.7 (0.2-1.3) mg/dL AST 26 (17-59) U/L ALT 23 (4-49) U/L Alkaline Phosphatase 75 (38-126) U/L Troponin I (0.000-0.034) ng/mL NT-Pro-B Natriuret Pep 45 pg/mL Total Protein 6.3 (6.3-8.2) g/dL Albumin 3.8 (3.5-5.0) g/dL Coronavirus (PCR) (Not Detectd) 06/21/23 06/21/23 06/21/23 Range/Units 04:20 04:20 04:20 WBC (3.8-10.6) k/uL RBC (4.30-5.90) m/uL Hgb (13.0-17.5) gm/dL Hct (39.0-53.0) % MCV (80.0-100.0) fL MCH (25.0-35.0) pg MCHC (31.0-37.0) g/dL RDW (11.5-15.5) % Plt Count (150-450) k/uL MPV Neutrophils % % Lymphocytes % % Monocytes % % Eosinophils % % Basophils % % Neutrophils # (1.3-7.7) k/uL Lymphocytes # (1.0-4.8) k/uL Monocytes # (0-1.0) k/uL Eosinophils # (0-0.7) k/uL Basophils # (0-0.2) k/uL PT (9.0-12.0) sec INR (<1.2) APTT (22.0-30.0) sec D-Dimer 0.49 (<0.60) mg/L FEU VBG pH (7.31-7.41) VBG pCO2 (37-51) mmHg VBG HCO3 (24-28) mmol/L Sodium (137-145) mmol/L Potassium (3.5-5.1) mmol/L Chloride (98-107) mmol/L Carbon Dioxide (22-30) mmol/L Anion Gap mmol/L BUN (9-20) mg/dL Creatinine (0.66-1.25) mg/dL Est GFR (CKD-EPI)AfAm (>60 ml/min/1.73 sqM) Est GFR (CKD-EPI)NonAf (>60 ml/min/1.73 sqM) Glucose (74-99) mg/dL Plasma Lactic Acid Dionicio 1.6 (0.7-2.0) mmol/L Calcium (8.4-10.2) mg/dL Total Bilirubin (0.2-1.3) mg/dL AST (17-59) U/L ALT (4-49) U/L Alkaline Phosphatase (38-126) U/L Troponin I <0.012 (0.000-0.034) ng/mL NT-Pro-B Natriuret Pep pg/mL Total Protein (6.3-8.2) g/dL Albumin (3.5-5.0) g/dL Coronavirus (PCR) (Not Detectd) 06/21/23 06/21/23 Range/Units 05:28 06:08 WBC (3.8-10.6) k/uL RBC (4.30-5.90) m/uL Hgb (13.0-17.5) gm/dL Hct (39.0-53.0) % MCV (80.0-100.0) fL MCH (25.0-35.0) pg MCHC (31.0-37.0) g/dL RDW (11.5-15.5) % Plt Count (150-450) k/uL MPV Neutrophils % % Lymphocytes % % Monocytes % % Eosinophils % % Basophils % % Neutrophils # (1.3-7.7) k/uL Lymphocytes # (1.0-4.8) k/uL Monocytes # (0-1.0) k/uL Eosinophils # (0-0.7) k/uL Basophils # (0-0.2) k/uL PT (9.0-12.0) sec INR (<1.2) APTT (22.0-30.0) sec D-Dimer (<0.60) mg/L FEU VBG pH 7.41 (7.31-7.41) VBG pCO2 47 (37-51) mmHg VBG HCO3 30 H (24-28) mmol/L Sodium (137-145) mmol/L Potassium (3.5-5.1) mmol/L Chloride (98-107) mmol/L Carbon Dioxide (22-30) mmol/L Anion Gap mmol/L BUN (9-20) mg/dL Creatinine (0.66-1.25) mg/dL Est GFR (CKD-EPI)AfAm (>60 ml/min/1.73 sqM) Est GFR (CKD-EPI)NonAf (>60 ml/min/1.73 sqM) Glucose (74-99) mg/dL Plasma Lactic Acid Dionicio (0.7-2.0) mmol/L Calcium (8.4-10.2) mg/dL Total Bilirubin (0.2-1.3) mg/dL AST (17-59) U/L ALT (4-49) U/L Alkaline Phosphatase (38-126) U/L Troponin I (0.000-0.034) ng/mL NT-Pro-B Natriuret Pep pg/mL Total Protein (6.3-8.2) g/dL Albumin (3.5-5.0) g/dL Coronavirus (PCR) Not Detected (Not Detectd) Disposition <Dino Sarabia - Last Filed: 06/21/23 07:22> Time of Disposition: 09:49 <Doyle Davidson - Last Filed: 06/21/23 09:49> Clinical Impression: Dyspnea Disposition: ADMITTED IP TO THIS HOSP Referrals: Alfredo Hope DO [Primary Care Provider] - 1-2 days
[2023-06-21 04:55] LABS: Basophils % (A) 0 %; Eosinophils # (A) 0.3 k/uL (0-0.7); Eosinophils % (A) 3 %; HCT 40.7 % (39.0-53.0); HGB 13.4 gm/dL (13.0-17.5); Lymphocytes # (A) 1.2 k/uL (1.0-4.8); Lymphocytes % (A) 12 %; MCH 28.2 pg (25.0-35.0); MCV 85.5 fL (80.0-100.0); Mean Platelet Volume 7.5; Monocytes # (A) 0.6 k/uL (0-1.0); Monocytes % (A) 6 %; Neutrophils # (A) 7.6 k/uL (1.3-7.7); Neutrophils % (A) 78 %; Platelet Count 247 k/uL (150-450); RBC 4.76 m/uL (4.30-5.90); RDW 14.7 % (11.5-15.5); WBC 9.7 k/uL (3.8-10.6)
[2023-06-21 04:59] LABS: ALT 23 U/L (4-49); AST 26 U/L (17-59); African American GFR (CKD) >90 (>60 ml/min/1.73 sqM); Albumin 3.8 g/dL (3.5-5.0); Alkaline Phosphatase 75 U/L (38-126); Anion Gap 6 mmol/L; Blood Urea Nitrogen 11 mg/dL (9-20); Calcium 9.5 mg/dL (8.4-10.2); Carbon Dioxide 30 mmol/L (22-30); Chloride 99 mmol/L (98-107); Glucose 164 mg/dL (74-99); INR 0.9 (<1.2); Non-African American GFR(CKD) >90 (>60 ml/min/1.73 sqM); Partial Thromboplastin Time 24.9 sec (22.0-30.0); Potassium 4.3 mmol/L (3.5-5.1); Prothrombin Time 9.9 sec (9.0-12.0); Sodium 135 mmol/L (137-145); Total Bilirubin 0.7 mg/dL (0.2-1.3); Total Protein 6.3 g/dL (6.3-8.2)
[2023-06-21 05:07] LABS: NT-Pro-B-Type Natriuretic Pept 45 pg/mL
--- NOTE | 2023-06-21 07:19 | XR ---
EXAMINATION TYPE: XR chest 1V portable DATE OF EXAM: 06/21/2023 4:36 AM COMPARISON: Chest radiographs from 05/28/2023 TECHNIQUE: XR chest 1V portable Frontal view of the chest. CLINICAL INDICATION:Male, 57 years old with history of difficulty breathing; FINDINGS: Lungs/Pleura: Low lung volumes are present. There is no evidence of pleural effusion, focal consolida tion, or pneumothorax. Pulmonary vascularity: Pulmonary vascular congestion. Heart/mediastinum: Cardiomediastinal silhouette is enlarged and stable. Musculoskeletal: No acute osseous pathology. IMPRESSION: Low lung volumes with a generalized hazy appearance which could represent atelectasis versus pulmonar y edema correlate with serum BNP.
[2023-06-21 07:25] LABS: VBG PH 7.41 (7.31-7.41)
[2023-06-21] MEDS ORDERED: IPRATROPIUM-ALBUTEROL 3 ML NEB INHALATION STA (07:59)
--- NOTE | 2023-06-21 10:07 | P.HPIM ---
History of Present Illness This is a 57-year-old patient of Dr. Hope. With past medical history of COPD, obstructive sleep apnea. Osteoarthritis in multiple joints especially the knees. Patient is chronically short of breath. Patient presents because of a breathing difficulty which mainly happened last night, decreased he could not sleep well because of his shortness of breath. He sleeps on his recliner for many years because he cannot lay flat as he states area and he was in the hospital about 1 week ago for similar complaint, he is been evaluated by icer hand recently who recommended MRI of the heart as an outpatient because of his significant left ventricular hypertrophy to rule out infiltrative disease like amyloidosis. However the suspicion for CHF was log given his low proBNP. Given today he does not have leg edema. His been complaining of from chest discomfort which started also last night about 5/10, radiating to the back felt like sharp pain with no precipitated or relieving factors. He quit smoking in 2006, no alcohol no illicit drugs. He has history of sleep apnea but he cannot wear masks. He follows up with Dr. Ragland He denies urinary or GI complaints. No new neurological complaints. Rest of vitals are stable and patient is a febrile Labs showing unremarkable CBC, INR. D-dimer is negative at 0.49. Basic metabolic panel and liver enzymes were unremarkable. Rotavirus not detected Chest x-ray showing low lung volumes with generalized appearance which could represent atelectasis versus pulmonary edema ProBNP of his low at 45. Review of Systems Review of systems CONSTITUTIONAL: No fever, no malaise, no fatigue. HEENT: No recent visual problems or hearing problems. Denied any sore throat. CARDIOVASCULAR: No orthopnea, PND, no palpitations, no syncope. PULMONARY: No chest wall tenderness, no hemoptysis. GASTROINTESTINAL: No diarrhea, no nausea, no vomiting, no abdominal pain. Normoactive bowel sounds. NEUROLOGICAL: No headaches, no weakness, no numbness. HEMATOLOGICAL: Denies any bleeding or petechiae. GENITOURINARY: Denies any burning micturition, frequency, or urgency. MUSCULOSKELETAL/RHEUMATOLOGICAL: Denies any joint pain, swelling, or any muscle pain. ENDOCRINE: Denies any polyuria or polydipsia. Chest wall tenderness Past Medical History Past Medical History: Asthma, COPD, GERD/Reflux, Osteoarthritis (OA), Sleep Apnea/CPAP/BIPAP Additional Past Medical History / Comment(s): JEANIE/unable to tolerate cpap, pneumonias, bronchitis, chronic lower extremity lymphedema/redness/scabs, arthritis in multiple joints/chronic pain/chronic back pain History of Any Multi-Drug Resistant Organisms: None Reported Past Surgical History: Adenoidectomy, Appendectomy, Orthopedic Surgery, Tonsillectomy Additional Past Surgical History / Comment(s): Bilateral knee arthroscopy, UVPPP, carpal tunnel surgery, right shoulder surgery, colonoscopy/benign polypectomy. Past Anesthesia/Blood Transfusion Reactions: No Reported Reaction Past Psychological History: No Psychological Hx Reported Smoking Status: Former smoker Past Alcohol Use History: None Reported Past Drug Use History: None Reported - Past Family History Father History Unknown: Yes Family Medical History: Cancer Additional Family Medical History / Comment(s): . Mother History Unknown: Yes Family Medical History: Deep Vein Thrombosis (DVT) Medications and Allergies Home Medications Medication Instructions Recorded Confirmed Type Spironolactone [Aldactone] 25 mg PO DAILY 12/25/20 06/17/23 History Meloxicam 7.5 mg PO DAILY 08/05/21 06/17/23 History Budesonide-Formot 160-4.5 Mcg 2 puff INHALATION RT-BID #1 each 05/30/23 06/17/23 Rx [Symbicort 160-4.5 Mcg Inhaler] Fluticasone Propionate 110 Mcg 2 puff INHALATION QAM 06/11/23 06/17/23 History [Flovent 110 Mcg Inhaler] Isosorbide(Unknown Dose) 06/11/23 History Metoprolol Succ(Unknown Dose) 06/11/23 History Aspirin 81 mg PO DAILY PRN 06/17/23 06/17/23 History Allergies Allergy/AdvReac Type Severity Reaction Status Date / Time No Known Allergies Allergy Verified 06/21/23 03:50 Physical Exam Vitals: Vital Signs Temp Pulse Resp BP Pulse Ox 06/21/23 08:59 125 H 90 L 06/21/23 08:21 94 06/21/23 08:11 90 06/21/23 06:26 96 14 125/82 95 06/21/23 05:45 82 16 131/94 94 L 06/21/23 04:48 16 06/21/23 03:48 98.7 F 102 H 26 H 156/78 97 Intake and Output 06/20/23 06/21/2306/21/23 22:59 06:59 14:59 Other: Weight 195.045 kg -GENERAL: The patient is alert and oriented x3, not in any acute distress. Morbidly obese HEENT: Pupils are round and equally reacting to light. EOMI. No scleral icterus. No conjunctival pallor. Normocephalic, atraumatic. No pharyngeal erythema. No thyromegaly. CARDIOVASCULAR: S1 and S2 present. No murmurs, rubs, or gallops. -PULMONARY: Chest is clear to auscultation, no wheezing , no crackles. Distant heart sounds and breath sounds ABDOMEN: Soft, nontender, nondistended, normoactive bowel sounds. No palpable organomegaly. MUSCULOSKELETAL: No joint swelling or deformity. EXTREMITIES: No cyanosis, clubbing, or pedal edema. NEUROLOGICAL: Gross neurological examination did not reveal any focal deficits. SKIN: No rashes. no petechiae. Results CBC & Chem 7: 06/21/23 04:20 06/21/23 04:20 Labs: Abnormal Lab Results - Last 24 Hours (Table) 06/21/23 06/21/23 Range/Units 04:20 05:28 VBG HCO3 30 H (24-28) mmol/L Sodium 135 L (137-145) mmol/L Creatinine 0.62 L (0.66-1.25) mg/dL Glucose 164 H (74-99) mg/dL Assessment and Plan Assessment: -Acute on chronic dyspnea of unclear etiology could be related to his morbid obesity and obesity hypoventilation syndrome -Chest discomfort, most likely musculoskeletal. Rule out cardiac causes -Obstructive sleep apnea , noncompliant with his CPAP/BiPAP machine -Severe LVH -Bilateral knee arthralgia -Morbid obesity BMI 62.6 Plan: Continue with a breathing treatment Pulmonary consult cardiology consult Labs and medication were reviewed.. Continue same treatment. Continue with symptomatic treatment. Resume home medication. Monitor labs and vitals. DVT and GI prophylaxis. Further recommendations as per clinical course of the patient DVT prophylaxis: Subcutaneous heparin GI Prophylaxis: Pepcid PT/OT: Pending Prognosis is guarded
[2023-06-21] MEDS: ASPIRIN 81 MG PO SCH (10:23)
--- NOTE | 2023-06-21 11:48 | P.CRDCN ---
History of Present Illness History of present illness: HISTORY OF PRESENT ILLNESS: This is a 57-year-old male with a past medical history significant for COPD and obstructive sleep apnea. Patient follows in the office with Dr. Alexis. We have been asked to see the patient in consultation for chest pain. Patient examined at the bedside. Patient presented to the hospital with a chief complaint of shortness of breath. He reports he is short of breath at baseline. At the time of examination, he denies chest pain or pressure. Vital signs are stable. * EKG reveals sinus mechanism with no signs of acute ischemia * Chest xray low lung volumes with generalized hazy appearance which could represent atelectasis versus pulmonary edema. * Laboratory data: WBC 9.7. Hemoglobin 13.4. Platelet count 247. D-dimer 0.49. Sodium 135. Potassium 4.3. BUN 11. Creatinine 0.62. Troponin negative 1. ProBNP 45. * Current home cardiac medications include Aldactone 25 mg daily and aspirin 162 mg daily * Most recent echocardiogram obtained in May 2023 revealed ejection fraction 55-60%, severe increased left ventricular wall thickness, mild right ventricular dilation, mild increased left atrial diameter * Cardiac catheterization history: 06/17/2023 revealing normal coronary arteries, minimally elevated left-sided filling pressures with relatively right-sided pressures, normal cardiac output, cardiac index. REVIEW OF SYSTEMS: At the time of my exam: CONSTITUTIONAL: Denies fever or chills. HEENT: Denies blurred vision, vision changes, or eye pain. Denies hemoptysis CARDIOVASCULAR: Denies chest pain. Denies orthopnea. Denies PND. Denies palpitations RESPIRATORY: Denies shortness of breath. GASTROINTESTINAL: Denies abdominal pain. Denies nausea or vomiting. HEMATOLOGIC: Denies bleeding disorders. GENITOURINARY: Denies any blood in urine. SKIN: Denies pruitis. Denies rash. PHYSICAL EXAM: VITAL SIGNS: Reviewed. GENERAL: Well-developed in no acute distress. HEENT: Head is normocephalic. Pupils are equal, round. Sclerae anicteric. Mucous membranes of the mouth are moist. Neck supple. No JVD or thyromegaly LUNGS: Respirations even and unlabored. Lungs essentially clear to auscultation bilaterally. HEART: Regular rate and rhythm. S1 and S2 heard. ABDOMEN: Soft. Nondistended. Nontender. EXTREMITIES: Normal range of motion. No clubbing or cyanosis. Peripheral pulses intact. Chronic venous stasis to bilateral lower extremities with minimal edema and chronic skin discoloration. NEUROLOGIC: Awake and alert. Oriented x 3. ASSESSMENT: Shortness of breath Chest discomfort, acute coronary syndrome ruled out Normal coronary arteries, per cardiac catheterization 06/17/2023 Obstructive sleep apnea Severe LVH PLAN: An acute coronary and has been ruled out Patient had cardiac catheterization on 06/17/2023 with normal coronary arteries No further workup from a cardiac standpoint We will sign off. Please reconsult if needed. Nurse practitioner note has been reviewed by physician. Signing provider agrees with the documented findings, assessment, and plan of care. Past Medical History Past Medical History: Asthma, COPD, GERD/Reflux, Osteoarthritis (OA), Sleep Apnea/CPAP/BIPAP Additional Past Medical History / Comment(s): JEANIE/unable to tolerate cpap, pneumonias, bronchitis, chronic lower extremity lymphedema/redness/scabs, arthritis in multiple joints/chronic pain/chronic back pain History of Any Multi-Drug Resistant Organisms: None Reported Past Surgical History: Adenoidectomy, Appendectomy, Orthopedic Surgery, Tonsillectomy Additional Past Surgical History / Comment(s): Bilateral knee arthroscopy, UVPPP, carpal tunnel surgery, right shoulder surgery, colonoscopy/benign polypectomy. Past Anesthesia/Blood Transfusion Reactions: No Reported Reaction Smoking Status: Former smoker - Past Family History Father History Unknown: Yes Family Medical History: Cancer Additional Family Medical History / Comment(s): . Mother History Unknown: Yes Family Medical History: Deep Vein Thrombosis (DVT) Medications and Allergies Home Medications Medication Instructions Recorded Confirmed Type Spironolactone [Aldactone] 25 mg PO DAILY 12/25/20 06/21/23 History Meloxicam 7.5 mg PO DAILY 08/05/21 06/21/23 History Budesonide-Formot 160-4.5 Mcg 2 puff INHALATION RT-BID #1 each 05/30/23 06/21/23 Rx [Symbicort 160-4.5 Mcg Inhaler] Fluticasone Propionate 110 Mcg 2 puff INHALATION RT-DAILY 06/11/23 06/21/23 History [Flovent 110 Mcg Inhaler] Aspirin EC [Ecotrin Low Dose] 162 mg PO DAILY 06/21/23 06/21/23 History Allergies Allergy/AdvReac Type Severity Reaction Status Date / Time isosorbide [From Imdur] AdvReac headache & Verified 06/21/23 10:14 blurred vision metoprolol [From Toprol XL] AdvReac headache & Verified 06/21/23 10:14 blurred vision Physical Exam Vitals: Vital Signs Temp Pulse Pulse Resp BP BP Pulse Ox 06/21/23 10:57 97.5 F L 91 20 112/83 95 06/21/23 10:10 98.2 F 102 H 22 133/90 93 L 06/21/23 08:59 125 H 90 L 06/21/23 08:21 94 06/21/23 08:11 90 06/21/23 06:26 96 14 125/82 95 06/21/23 05:45 82 16 131/94 94 L 06/21/23 04:48 16 06/21/23 03:48 98.7 F 102 H 26 H 156/78 97 Intake and Output 06/20/23 06/21/23 06/21/23 22:59 06:59 14:59 Other: Weight 195.045 kg 195.045 kg Results 06/21/23 04:20 06/21/23 04:20 Cardiac Enzymes 06/21/23 06/21/23 Range/Units 04:20 04:20 AST 26 (17-59) U/L Troponin I <0.012 (0.000-0.034) ng/mL Coagulation 06/21/23 Range/Units 04:20 PT 9.9 (9.0-12.0) sec APTT 24.9 (22.0-30.0) sec CBC 06/21/23 Range/Units 04:20 WBC 9.7 (3.8-10.6) k/uL RBC 4.76 (4.30-5.90) m/uL Hgb 13.4 (13.0-17.5) gm/dL Hct 40.7 (39.0-53.0) % Plt Count 247 (150-450) k/uL Comprehensive Metabolic Panel 06/21/23 Range/Units 04:20 Sodium 135 L (137-145) mmol/L Potassium 4.3 (3.5-5.1) mmol/L Chloride 99 (98-107) mmol/L Carbon Dioxide 30 (22-30) mmol/L BUN 11 (9-20) mg/dL Creatinine 0.62 L (0.66-1.25) mg/dL Glucose 164 H (74-99) mg/dL Calcium 9.5 (8.4-10.2) mg/dL AST 26 (17-59) U/L ALT 23 (4-49) U/L Alkaline Phosphatase 75 (38-126) U/L Total Protein 6.3 (6.3-8.2) g/dL Albumin 3.8 (3.5-5.0) g/dL Current Medications Generic Name Dose Route Start Last Admin Trade Name Freq PRN Reason Stop Dose Admin Albuterol/Ipratropium 3 ml 06/21/23 12:00 Ipratropium-Albuterol 3 Ml Neb INHALATION RT-QID [facility] Aspirin 81 mg 06/21/23 10:15 06/21/23 10:23 Aspirin 81 Mg PO 81 mg DAILY TAMELA Administration Intake and Output 06/20/23 06/21/23 06/21/23 22:59 06:59 14:59 Other: Weight 195.045 kg 195.045 kg Patient Weight 06/22/23 06:59 Weight 195.045 kg 06/21/23 04:20 06/21/23 04:20
[2023-06-21] MEDS: IPRATROPIUM-ALBUTEROL 3 ML NEB INHALATION SCH ×3 (11:49→20:25)
--- NOTE | 2023-06-21 13:02 | P.CNPUL ---
History of Present Illness Consult date: 06/21/23 Requesting physician: Gustavo E Jory Reason for consult: dyspnea, asthma, COPD, obstructive sleep apnea, other Chief complaint: Shortness of breath, tachycardia. History of present illness: Pulmonary consult dated 06/21/2023. 57-year-old male who was seen in the emergency department, at about 3:00 in the morning, on June 21, for shortness of breath. The patient has a history of asthma/COPD, and sleep apnea syndrome. He does not use CPAP for sleep apnea, as she states that he could not tolerate it. Anyway, apparently in the emergency department, he was quite tachycardic, and he was admitted with a diagnosis of shortness of breath, tachycardia. He was told apparently that it was his heart that was causing an issue, and not his COPD/asthma. He did smoke for about 30 years, up to 2 packs a day. He quit smoking 16 or 17 years ago. He does not use oxygen at home. Currently, he's on room air. He's not receiving any IV fluids. In addition to asthma/COPD, the patient apparently has a history of acid reflux disease, osteoarthritis, sleep apnea syndrome. In addition, he has significant obesity, and apparently has had a recent heart catheterization, she was told was normal. The patient has undergone UPPP surgery, for his sleep apnea syndrome. CBC is completely normal. Coagulation studies are normal. Venous blood gases show pCO2 of 47, with a normal pH. Sodium 135, potassium 4.3, chlorides 99, CO2 30, B1 11, creatinine 0.62. N-terminal proBNP is normal. Troponin was negative. He tested negative for coronavirus. EKG showed sinus rhythm, at a rate of 97 bpm. Chest x-ray showed low lung volumes. Review of Systems REVIEW OF SYSTEMS: CONSTITUTIONAL: [Negative.] NEUROLOGIC: [ Negative.] HEENT: [ Negative.] CARDIAC: Tachycardia. PULMONARY: Shortness of breath on exertion. GI: [Negative.] : [Negative.] RHEUMATOLOGIC: [ Negative.] IMMUNOLOGIC: [ Negative.] ENDOCRINE: [Negative. ] DERMATOLOGIC: [Negative.] Past Medical History Past Medical History: Asthma, COPD, GERD/Reflux, Osteoarthritis (OA), Sleep Apnea/CPAP/BIPAP Additional Past Medical History / Comment(s): JEANIE/unable to tolerate cpap, pneumonias, bronchitis, chronic lower extremity lymphedema/redness/scabs, arthritis in multiple joints/chronic pain/chronic back pain History of Any Multi-Drug Resistant Organisms: None Reported Past Surgical History: Adenoidectomy, Appendectomy, Orthopedic Surgery, Tonsillectomy Additional Past Surgical History / Comment(s): Bilateral knee arthroscopy, UVPPP, carpal tunnel surgery, right shoulder surgery, colonoscopy/benign polypectomy. Past Anesthesia/Blood Transfusion Reactions: No Reported Reaction Smoking Status: Former smoker - Past Family History Father History Unknown: Yes Family Medical History: Cancer Additional Family Medical History / Comment(s): . Mother History Unknown: Yes Family Medical History: Deep Vein Thrombosis (DVT) Medications and Allergies Home Medications Medication Instructions Recorded Confirmed Type Spironolactone [Aldactone] 25 mg PO DAILY 12/25/20 06/21/23 History Meloxicam 7.5 mg PO DAILY 08/05/21 06/21/23 History Budesonide-Formot 160-4.5 Mcg 2 puff INHALATION RT-BID #1 each 05/30/23 06/21/23 Rx [Symbicort 160-4.5 Mcg Inhaler] Fluticasone Propionate 110 Mcg 2 puff INHALATION RT-DAILY 06/11/23 06/21/23 History [Flovent 110 Mcg Inhaler] Aspirin EC [Ecotrin Low Dose] 162 mg PO DAILY 06/21/23 06/21/23 History Allergies Allergy/AdvReac Type Severity Reaction Status Date / Time isosorbide [From Imdur] AdvReac headache & Verified 06/21/23 10:14 blurred vision metoprolol [From Toprol XL] AdvReac headache & Verified 06/21/23 10:14 blurred vision Physical Exam Osteopathic Statement: *. No significant issues noted on an osteopathic structural exam other than those noted in the History and Physical/Consult. Vitals: Vital Signs Temp Pulse Pulse Resp BP BP Pulse Ox 06/21/23 10:57 97.5 F L 91 20 112/83 95 06/21/23 10:10 98.2 F 102 H 22 133/90 93 L 06/21/23 08:59 125 H 90 L 06/21/23 08:21 94 06/21/23 08:11 90 06/21/23 06:26 96 14 125/82 95 06/21/23 05:45 82 16 131/94 94 L 06/21/23 04:48 16 06/21/23 03:48 98.7 F 102 H 26 H 156/78 97 Intake and Output 06/20/23 06/21/23 06/21/23 22:59 06:59 14:59 Other: Voiding Method Toilet Weight 195.045 kg 195.045 kg No acute distress, oriented 3. No conversational dyspnea, use of accessory muscles, or audible wheezing. HEENT examination is grossly unremarkable. Mucous membranes are moist. No oral lesions. Neck supple. Full range of motion. No adenopathy thyromegaly or neck vein distention. Cardiovascular examination reveals regular rhythm rate. S1-S2 normal. No S3 or S4. No discernible murmur noted. Heart rate about 95 bpm. Lungs reveal clear breath sounds. Breath sounds are equal bilaterally. No adventitious lung sounds including wheezes rhonchi or crackles. Room air saturation 95%. Abdomen soft bowel sounds are heard. No masses or tenderness. Extremities are intact. No cyanosis or clubbing. Mild edema. Skin is without rash or lesion. Neurologic examination is brief but nonfocal. Results - Laboratory Findings CBC and BMP: 06/21/23 04:20 06/21/23 04:20 PT/INR, D-dimer PT 9.9 sec (9.0-12.0) 06/21/23 04:20 INR 0.9 (<1.2) 06/21/23 04:20 D-Dimer 0.49 mg/L FEU (<0.60) 06/21/23 04:20 Abnormal lab findings: Abnormal Labs 06/21/23 06/21/23 04:20 05:28 VBG HCO3 30 H Sodium 135 L Creatinine 0.62 L Glucose 164 H - Diagnostic Findings Chest x-ray: image reviewed Assessment and Plan Assessment: Shortness of breath on exertion, with tachycardia. History of COPD/asthma. Obstructive sleep apnea syndrome, status post UPPP, intolerant of CPAP. Morbid obesity. History of gastroesophageal reflux disease. Osteoarthritis. Chronic lower extremity lymphedema. Plan: Plan dated 06/21/2023. The patient is seen in room 515. The patient is currently on room air. He denies any significant shortness of breath while laying in bed. The patient guthrie sn't feel like a COPD/asthma is active at this time. He denies any cough, phlegm production, or wheezing. He apparently became tachycardic in the emergency department, when he was ambulating. His EKG showed sinus rhythm. His chest x-ray did not show acute disease in my opinion. His troponin was normal as was his N-terminal proBNP. I'm not sure why this patient was actually admitted to the hospital. He tells us that he had a recent cardiac catheterization which was normal. He does not need corticosteroids. He can be using Ventolin, 2 puffs as needed, and Symbicort, 160/4.5, 2 puffs twice a day. He has seen my partner in the past, and should follow-up with him. Time with Patient: Greater than 30
[2023-06-21] MEDS ORDERED: ACETAMINOPHEN TAB 325 MG TAB PO PRN (21:11)
[2023-06-22] MEDS: IPRATROPIUM-ALBUTEROL 3 ML NEB INHALATION SCH ×3 (07:28→14:42)
[2023-06-22] MEDS ORDERED: SYMBICORT 160-4.5 MCG INHALER INHALATION SCH (08:00)
[2023-06-22] MEDS: ASPIRIN 81 MG PO SCH (08:30)
[2023-06-22 08:41] VITALS: RESP 20
[2023-06-22] MEDS ORDERED: FAMOTIDINE 20 MG/2 ML VIAL IV SCH (09:00)
[2023-06-22] MEDS ORDERED: SPIRONOLACTONE 25 MG TAB PO SCH (09:00)
[2023-06-22] MEDS ORDERED: ASPIRIN 81 MG PO SCH (09:00)
[2023-06-22] MEDS ORDERED: HEPARIN SODIUM,PORCINE 5,000 UNIT/ML 1 ML VIAL SQ SCH (09:00)
--- NOTE | 2023-06-22 11:46 | P.PN ---
Subjective Progress Note Date: 06/22/23 57-year-old male who was seen in the emergency department, at about 3:00 in the morning, on June 21, for shortness of breath. The patient has a history of asthma/COPD, and sleep apnea syndrome. He does not use CPAP for sleep apnea, as she states that he could not tolerate it. Anyway, apparently in the emergency department, he was quite tachycardic, and he was admitted with a diagnosis of shortness of breath, tachycardia. He was told apparently that it was his heart that was causing an issue, and not his COPD/asthma. He did smoke for about 30 years, up to 2 packs a day. He quit smoking 16 or 17 years ago. He does not use oxygen at home. Currently, he's on room air. He's not receiving any IV fluids. In addition to asthma/COPD, the patient apparently has a history of acid reflux disease, osteoarthritis, sleep apnea syndrome. In addition, he has significant obesity, and apparently has had a recent heart catheterization, she was told was normal. The patient has undergone UPPP surgery, for his sleep apnea syndrome. CBC is completely normal. Coagulation studies are normal. Venous blood gases show pCO2 of 47, with a normal pH. Sodium 135, potassium 4.3, chlorides 99, CO2 30, B1 11, creatinine 0.62. N-terminal proBNP is normal. Troponin was negative. He tested negative for coronavirus. EKG showed sinus rhythm, at a rate of 97 bpm. Chest x-ray showed low lung volumes. The patient seen today 06/22/2023 in follow-up on the regular medical floor. He is resting comfortably in bed. Awake and alert in no acute distress. No worsening shortness of breath, cough or congestion. He states he has some dyspnea on exertion. He is afebrile. Maintaining good O2 saturations in the 90s on room air. Hemodynamically stable. No new labs today. He is continued on Symbicort, DuoNeb inhalations. Heparin for DVT prophylaxis. Objective - Vital Signs Vital signs: Vital Signs Temp 97.7 F 06/22/23 08:00 Pulse 80 06/22/23 11:22 Resp 20 06/22/23 08:00 BP 117/73 06/22/23 08:00 Pulse Ox 96 06/22/23 08:00 FiO2 Intake & Output 06/21/23 06/22/23 06/22/23 18:59 06:59 18:59 Weight 195.045 kg Other: Voiding Method Toilet Toilet Toilet # Voids 2 0 - Exam GENERAL EXAM: Alert, pleasant, morbidly obese 57-year-old male, on room air, comfortable in no apparent distress. HEAD: Normocephalic. EYES: Normal reaction of pupils, equal size. NOSE: Clear with pink turbinates. THROAT: No erythema or exudates. NECK: No masses, no JVD. CHEST: No chest wall deformity. LUNGS: Equal air entry with no crackles, wheeze, rhonchi or dullness. CVS: S1 and S2 normal with no audible murmur, regular rhythm. ABDOMEN: No hepatosplenomegaly, normal bowel sounds, no guarding or rigidity. SPINE: No scoliosis or deformity SKIN: No rashes CENTRAL NERVOUS SYSTEM: No focal deficits, tone is normal in all 4 extremities. EXTREMITIES: There is changes of chronic venous stasis, trace peripheral edema. No clubbing, no cyanosis. Peripheral pulses are intact. - Labs CBC & Chem 7: 06/21/23 04:20 06/21/23 04:20 Assessment and Plan Assessment: Dyspnea on exertion, with tachycardia secondary to morbid obesity, deconditioning, COPD/asthma History of COPD/asthma Obstructive sleep apnea syndrome, status post UPPP, intolerant of CPAP Morbid obesity with a body mass index of 67.3 kilograms per meter squared History of gastroesophageal reflux disease Osteoarthritis Chronic lower extremity lymphedema Plan: The patient was seen and evaluated Currently stable and on room air Cleared for discharge from the pulmonary standpoint Continue Symbicort, albuterol HFA Follow-up in our office in 1 week I have personally seen and examined the patient, performed the documentation and the assessment and plan as written. Number of minutes spent on the visit: 10.
[2023-06-22 12:07] VITALS: BP 120/74; TEMP 97.9
[2023-06-22 14:55] VITALS: PULSE 88
--- NOTE | 2023-06-22 21:22 | P.DS ---
Providers Date of admission: 06/21/23 09:49 Attending physician: Gustavo Corley MD Consults: 06/21/23 10:05 Consult Physician Routine Consulting Provider: Han Smith Consult Reason/Comments: dyspnea, known to your service Do you want consulting provider notified?: Yes Primary care physician: Alfredo Hope [facility] Course: Diagnoses: -Acute on chronic dyspnea of unclear etiology could be related to his morbid obesity and obesity hypoventilation syndrome with possible mild acute COPD exacerbation -Chest discomfort, oncology. The patient as he had normal cardiac cath about one week prior to hospitalization -Obstructive sleep apnea , noncompliant with his CPAP/BiPAP machine -Severe LVH, requiring follow-up as an outpatient -Bilateral knee arthralgia -Morbid obesity BMI 62.6 Hospital course: This is a 57-year-old patient of Dr. Hope. With past medical history of COPD, obstructive sleep apnea. Osteoarthritis in multiple joints especially the knees. Patient is chronically short of breath. Patient presents because of a breathing difficulty which mainly happened last night, decreased he could not sleep well because of his shortness of breath. Patient evaluated by director of special services and cleared her for discharge as he has unremarkable cardiac cath and to 10 days prior to hospitalization and his chest discomfort resolved upon discharge. Been complaining of from chronic dyspnea and exertional dyspnea and orthopnea with periods of mild exacerbation like this time, it is thought secondary to his morbid obesity and hypoventilation syndrome with possible mild elements of acute COPD exacerbation. Pulmonary service who evaluated the patient. Patient saturation of oxygen is well and high 90s while on room air. Patient is not significantly tachypneic. Patient denies any other new symptoms. Patient was cleared for discharge by both director of special services and brewing director. Problems and management plan were discussed with the patient and he verbalized understanding and acceptance Patient was found stable and can be discharged home in guarded prognosis however he needs follow-up as an outpatient. Patient was instructed to follow up with PCP Dr. Hope within one week and patient agrees Patient was instructed to follow up with brewing director Dr. Ragland in one week and he agrees to call and make point Physical exam -Gen: patient is a AAOx3, no distress. Morbidly obese CVS: S1-S2, RRR, no murmur Lungs: B/L CTA, no wheezing Abdomen: soft, no distention, no tenderness, positive bowel sounds Extremity: no leg edema or induration Time spent more than 35 minutes Plan - Discharge Summary Discharge Rx Participant: Yes New Discharge Prescriptions: New Albuterol Inhaler [Ventolin Hfa Inhaler] 1 - 2 puff INHALATION Q6H PRN #1 each PRN Reason: Shortness Of Breath Or Wheezing Continue Spironolactone [Aldactone] 25 mg PO DAILY Budesonide-Formot 160-4.5 Mcg [Symbicort 160-4.5 Mcg Inhaler] 2 puff INHALATION RT-BID #1 each Meloxicam 7.5 mg PO DAILY Fluticasone Propionate 110 Mcg [Flovent 110 Mcg Inhaler] 2 puff INHALATION RT-DAILY Aspirin EC [Ecotrin Low Dose] 162 mg PO DAILY Discharge Medication List Spironolactone [Aldactone] 25 mg PO DAILY 12/25/20 [History] Meloxicam 7.5 mg PO DAILY 08/05/21 [History] Fluticasone Propionate 110 Mcg [Flovent 110 Mcg Inhaler] 2 puff INHALATION RT- DAILY 06/11/23 [History] Aspirin EC [Ecotrin Low Dose] 162 mg PO DAILY 06/21/23 [History] Albuterol Inhaler [Ventolin Hfa Inhaler] 1 - 2 puff INHALATION Q6H PRN #1 each 06/22/23 [Rx] Budesonide-Formot 160-4.5 Mcg [Symbicort 160-4.5 Mcg Inhaler] 2 puff INHALATION RT-BID #1 each 06/22/23 [Rx] Follow up Appointment(s)/Referral(s): Alfredo Hope DO [Primary Care Provider] - 1-2 days (The office was not available to make appointment please call and make follow up.) Charisma Ragland MD [STAFF PHYSICIAN] - 07/26/23 9:30 am (They said they will call if they have anything available before then.) Patient Instructions/Handouts: Albuterol (By breathing), Budesonide/Formoterol (By breathing), Dyspnea (DC) Activity/Diet/Wound Care/Special Instructions: heart healthy diet activity is restricted till you see your doctor Discharge Disposition: HOME SELF-CARE
== END 2023-06-22 15:59 | disposition home or self-care (01) | DRG 206 ==
LOC: EC 03:43 → 5NMEDONC 09:49
PROVIDERS: ADMIT Internal Medicine; ATTEND Internal Medicine
DX: E66.2 Morbid (severe) obesity with alveolar hypoventilation (principal); Z68.44 Body mass index [BMI] 60.0-69.9, adult; J44.1 Chronic obstructive pulmonary disease with (acute) exacerbation; M15.9 Polyosteoarthritis, unspecified; Z20.822 Contact with and (suspected) exposure to COVID-19; Z79.1 Long term (current) use of non-steroidal anti-inflammatories (NSAID); Z79.51 Long term (current) use of inhaled steroids; Z79.82 Long term (current) use of aspirin; Z79.899 Other long term (current) drug therapy; Z87.891 Personal history of nicotine dependence; Z91.199 Patient's noncompliance with other medical treatment and regimen due to unspecified reason; Z88.8 Allergy status to other drugs, medicaments and biological substances
CPT/HCPCS: 36415; 71045; 80053; 82803; 83605; 83880; 84484; 85025; 85379; 85610; 85730; 87635; 93005; 94640; 94760; 99285

== ENCOUNTER 2023-08-26 19:32 | Outpatient (CLI) | payer OTHER | END 2023-08-26 22:45 | disposition left against medical advice (07) | LOC: 3 N SLEEP 19:32 | PROVIDERS: ATTEND Internal Medicine Critical Care Medicine | DX: G47.33 Obstructive sleep apnea (adult) (pediatric) (principal); Z88.8 Allergy status to other drugs, medicaments and biological substances; Z87.891 Personal history of nicotine dependence ==

== ENCOUNTER 2023-10-02 12:32 | Emergency (ER) | payer MEDICARE, OTHER ==
[2023-10-02 12:51] VITALS: BP 164/78; PULSE 105; RESP 22; TEMP 99.2
--- NOTE | 2023-10-02 13:23 | ED ---
URI HPI - General Chief Complaint: Upper Respiratory Infection Stated Complaint: body aches,weakness Time Seen by Provider: 10/02/23 13:22 Source: patient, RN notes reviewed Mode of arrival: ambulatory Limitations: no limitations - History of Present Illness Initial Comments: Patient is a 57-year-old male presented ER with chief complaint of URI. Patient states that symptoms started yesterday. Patient states hot flashes. Patient does endorse shortness of breath and has a history of COPD. Patient does not use oxygen at home or CPAP. Patient denies chest pain, abdominal pain, urinary symptoms. - Related Data Home Medications Medication Instructions Recorded Confirmed Spironolactone [Aldactone] 25 mg PO DAILY 12/25/20 06/21/23 Meloxicam 7.5 mg PO DAILY 08/05/21 06/21/23 Fluticasone Propionate 110 Mcg 2 puff INHALATION RT-DAILY 06/11/23 06/21/23 [Flovent 110 Mcg Inhaler] Aspirin EC [Ecotrin Low Dose] 162 mg PO DAILY 06/21/23 06/21/23 Previous Rx's Medication Instructions Recorded Albuterol Inhaler [Ventolin Hfa 1 - 2 puff INHALATION Q6H PRN #1 06/22/23 Inhaler] each Budesonide-Formot 160-4.5 Mcg 2 puff INHALATION RT-BID #1 each 06/22/23 [Symbicort 160-4.5 Mcg Inhaler] Albuterol Inhaler [Ventolin Hfa 1 puff INHALATION QID #8 gm 08/04/23 Inhaler] Levofloxacin [Levaquin] 750 mg PO DAILY 10 Days #10 tab 08/04/23 predniSONE [Deltasone] 40 mg PO DAILY 5 Days #10 tab 08/04/23 Albuterol Inhaler [Ventolin Hfa 1 - 2 puff INHALATION Q6H PRN #1 10/02/23 Inhaler] each Nirmatrelvir/Ritonavir [Paxlovid See Rx Instructions .ROUTE 10/02/23 2X150 mg-100 mg (Eua)] .COMPLEX #30 tab Allergies Allergy/AdvReac Type Severity Reaction Status Date / Time isosorbide [From Imdur] AdvReac headache & Verified 06/21/23 10:14 blurred vision metoprolol [From Toprol XL] AdvReac headache & Verified 06/21/23 10:14 blurred vision Review of Systems ROS Statement: Those systems with pertinent positive or pertinent negative responses have been documented in the HPI. ROS Other: All systems not noted in ROS Statement are negative. Past Medical History Past Medical History: Asthma, COPD, GERD/Reflux, Osteoarthritis (OA), Sleep Apnea/CPAP/BIPAP Additional Past Medical History / Comment(s): JEANIE/unable to tolerate cpap, pneumonias, bronchitis, chronic lower extremity lymphedema/redness/scabs, arthritis in multiple joints/chronic pain/chronic back pain History of Any Multi-Drug Resistant Organisms: None Reported Past Surgical History: Adenoidectomy, Appendectomy, Orthopedic Surgery, Tonsillectomy Additional Past Surgical History / Comment(s): Bilateral knee arthroscopy, UVPPP, carpal tunnel surgery, right shoulder surgery, colonoscopy/benign polypectomy. Past Anesthesia/Blood Transfusion Reactions: No Reported Reaction Past Psychological History: No Psychological Hx Reported Smoking Status: Former smoker Past Alcohol Use History: None Reported Past Drug Use History: None Reported - Past Family History Father History Unknown: Yes Family Medical History: Cancer Additional Family Medical History / Comment(s): . Mother History Unknown: Yes Family Medical History: Deep Vein Thrombosis (DVT) General Exam - General Exam Comments Initial Comments: Visual Physical Exam Vital signs reviewed General: Well-appearing, nontoxic, no acute distress. Head: Normocephalic, atraumatic Eyes: PERRLA, EOMI ENT: Airway patent Chest: Nonlabored breathing; left-sided wheezing noted Skin: No visual rash, normal skin tone Neuro: Alert and oriented 3 Musculoskeletal: No gross abnormalities Limitations: no limitations General appearance: alert, in no apparent distress ENT exam: Present: normal exam, mucous membranes moist Neck exam: Present: normal inspection. Absent: tenderness, meningismus, lymphad enopathy Respiratory exam: Present: wheezes (left). Absent: respiratory distress, rales, rhonchi, stridor Cardiovascular Exam: Present: regular rate, normal rhythm, normal heart sounds. Absent: systolic murmur, diastolic murmur, rubs, gallop, clicks Neurological exam: Present: alert, oriented X3, CN II-XII intact Psychiatric exam: Present: normal affect, normal mood Skin exam: Present: warm, dry, intact, normal color. Absent: rash Course Vital Signs 10/02/23 12:34 Temperature 99.2 F Pulse Rate 105 H Respiratory 22 Rate Blood Pressure 164/78 O2 Sat by Pulse 94 L Oximetry Medical Decision Making - Medical Decision Making Was pt. sent in by a medical professional or institution (LORNA Torres, ACCOUNT SERVICES REPRESENTATIVE, urgent care, hospital, or senior care...) When possible be specific @ -No Did you speak to anyone other than the patient for history (EMS, parent, family, police, friend...)? What history was obtained from this source @ -No Did you review nursing and triage notes (agree or disagree)? Why? @ -I reviewed and agree with nursing and triage notes Were old charts reviewed (outside hosp., previous admission, EMS record, old EKG, old radiological studies, urgent care reports/EKG's, senior care records)? Report findings @ -No old charts were reviewed Differential Diagnosis (chest pain, altered mental status, abdominal pain women, abdominal pain men, vaginal bleeding, weakness, fever, dyspnea, syncope, headache, dizziness, GI bleed, back pain, seizure, CVA, palpatations, mental health, musculoskeletal)? @ -COVID-19, RSV, influenza, viral sinusitis EKG interpreted by me (3pts min.). @ -None X-rays interpreted by me (1pt min.). @ -Chest x-ray shows no acute cardiopulmonary processes. There is changes related to COPD. CT interpreted by me (1pt min.). @ -None done U/S interpreted by me (1pt. min.). @ -None done What testing was considered but not performed or refused? (CT, X-rays, U/S, labs)? Why? @ -None What meds were considered but not given or refused? Why? @ -None Did you discuss the management of the patient with other professionals (professionals i.e. LORNA Torres, ACCOUNT SERVICES REPRESENTATIVE, lab, RT, psych nurse, health and social care teacher, school psychological examiner, teacher, state wildlife officer, rn field case manager)? Give summary @ -No Was smoking cessation discussed for >3mins.? @ -No Was critical care preformed (if so, how long)? @ -No Were there social determinants of health that impacted care today? How? (Homelessness, low income, unemployed, alcoholism, drug addiction, transportation, low edu. Level, literacy, decrease access to med. care, custodial, rehab)? @ -No Was there de-escalation of care discussed even if they declined (Discuss DNR or withdrawal of care, Hospice)? DNR status @ -No What co-morbidities impacted this encounter? (DM, HTN, Smoking, COPD, CAD, Cancer, CVA, ARF, Chemo, Hep., AIDS, mental health diagnosis, sleep apnea, morbid obesity)? @ -COPD, morbid obesity Was patient admitted / discharged? Hospital course, mention meds given and route, prescriptions, significant lab abnormalities, going to OR and other pertinent info. @ -Discharge. Patient had a temperature of 99 and was satting 94 on room air. Patient was in no respiratory distress upon examination. There was mild wheezing noted in the left lung. Viral swabs in the ER were significant for COVID-19 positive. Chest x-ray showed no acute cardiopulmonary process there were changes related to COPD noted she will be prescribed Paxlovid and albuterol inhaler. I advised patient to use [id number] Tylenol or Motrin for fever control. Return parameters were discussed. Patient will be discharged in stable condition with follow-up to PCP. Patient expressed understanding and agreement with care plan. Undiagnosed new problem with uncertain prognosis? @ -No Drug Therapy requiring intensive monitoring for toxicity (Heparin, Nitro, Insulin, Cardizem)? @ -No Were any procedures done? @ -No Diagnosis/symptom? @ -COVID-19 Acute, or Chronic, or Acute on Chronic? @ -Acute Uncomplicated (without systemic symptoms) or Complicated (systemic symptoms)? @ -Uncomplicated Side effects of treatment? @ -No Exacerbation, Progression, or Severe Exacerbation? @ -No Poses a threat to life or bodily function? How? (Chest pain, [place], [place], pneumonia, PE, COPD, DKA, ARF, appy, cholecystitis, CVA, Diverticulitis, Homicidal, Suicidal, threat to staff... and all critical care pts) @ -No - Lab Data Lab Results 10/02/23 Range/Units 12:37 Influenza Type A (PCR) Not Detected (Not Detectd) Influenza Type B (PCR) Not Detected (Not Detectd) RSV (PCR) Not Detected (Not Detectd) SARS-CoV-2 (PCR) Detected A (Not Detectd) - Radiology Data Radiology results: report reviewed, image reviewed Disposition Clinical Impression: COVID-19 Disposition: HOME SELF-CARE Condition: Stable Additional Instructions: Please return to the Emergency Department if symptoms worsen or any other concerns. Please use Tylenol and Motrin for fever control. Please take full course of Paxlovid and use albuterol inhaler for shortness of breath and wheezing. Prescriptions: Nirmatrelvir/Ritonavir [Paxlovid 2X150 mg-100 mg (Eua)] See Rx Instructions .ROUTE .COMPLEX #30 tab Albuterol Inhaler [Ventolin Hfa Inhaler] 1 - 2 puff INHALATION Q6H PRN #1 each PRN Reason: Shortness Of Breath Is patient prescribed a controlled substance at d/c from ED?: No Referrals: Alfredo Hope DO [Primary Care Provider] - 1-2 days Time of Disposition: 13:46
--- NOTE | 2023-10-02 13:25 | XR ---
EXAMINATION TYPE: XR chest 2V DATE OF EXAM: 10/02/2023 COMPARISON: An 2722 HISTORY: Shortness of breath TECHNIQUE: Frontal and lateral views of the chest are obtained. FINDINGS: Scattered senescent parenchymal changes noted. Hyperinflation compatible with COPD. No evidence for infiltrate. No evidence for atelectasis. Heart size is stable. Mediastinal structures are stable and grossly unremarkable. No evidence for hilar prominence. Degenerative changes dorsal spine. IMPRESSION: 1. No evidence for acute pulmonary disease.
== END 2023-10-02 14:46 | disposition home or self-care (01) ==
LOC: EC 12:32
DX: U07.1 COVID-19 (principal); J44.89 Other specified chronic obstructive pulmonary disease; M19.90 Unspecified osteoarthritis, unspecified site; Z87.891 Personal history of nicotine dependence; Z88.8 Allergy status to other drugs, medicaments and biological substances; Z79.51 Long term (current) use of inhaled steroids; Z79.82 Long term (current) use of aspirin; Z79.899 Other long term (current) drug therapy
CPT/HCPCS: 71046; 87636; 99285

== ENCOUNTER 2023-11-25 15:09 | Emergency (ER) | payer MEDICARE, OTHER ==
[2023-11-25 16:13] VITALS: TEMP 98.4
--- NOTE | 2023-11-25 17:03 | XR ---
EXAMINATION TYPE: XR chest 2V DATE OF EXAM: 11/25/2023 COMPARISON: 10/02/2023 HISTORY: Upper respiratory symptoms. TECHNIQUE: Frontal and lateral views of the chest are obtained. FINDINGS: There is no focal air space opacity, pleural effusion, or pneumothorax seen. The cardiac silhouette size is within normal limits. The osseous structures are intact. IMPRESSION: No acute cardiopulmonary process.
[2023-11-25] MEDS ORDERED: IBUPROFEN 600 MG TAB PO STA (17:27)
[2023-11-25] MEDS ORDERED: ACETAMINOPHEN TAB 325 MG TAB PO STA (17:27)
--- NOTE | 2023-11-25 17:27 | ED ---
URI HPI - General Chief Complaint: Upper Respiratory Infection Stated Complaint: flu dizzy Time Seen by Provider: 11/25/23 17:06 Source: patient Mode of arrival: ambulatory Limitations: no limitations - History of Present Illness Initial Comments: 57-year-old male presenting with chief complaint of cough. History of COPD. Patient also admits to bodyaches, congestion, shortness of breath. He admits to fatigue. Denies chest pain, palpitations, vomiting, diarrhea, abdominal pain, fevers, neck stiffness, sore throat. - Related Data Home Medications Medication Instructions Recorded Confirmed Spironolactone [Aldactone] 25 mg PO DAILY 12/25/20 06/21/23 Meloxicam 7.5 mg PO DAILY 08/05/21 06/21/23 Fluticasone Propionate 110 Mcg 2 puff INHALATION RT-DAILY 06/11/23 06/21/23 [Flovent 110 Mcg Inhaler] Aspirin EC [Ecotrin Low Dose] 162 mg PO DAILY 06/21/23 06/21/23 Previous Rx's Medication Instructions Recorded Albuterol Inhaler [Ventolin Hfa 1 - 2 puff INHALATION Q6H PRN #1 06/22/23 Inhaler] each Budesonide-Formot 160-4.5 Mcg 2 puff INHALATION RT-BID #1 each 06/22/23 [Symbicort 160-4.5 Mcg Inhaler] Albuterol Inhaler [Ventolin Hfa 1 puff INHALATION QID #8 gm 08/04/23 Inhaler] Levofloxacin [Levaquin] 750 mg PO DAILY 10 Days #10 tab 08/04/23 predniSONE [Deltasone] 40 mg PO DAILY 5 Days #10 tab 08/04/23 Albuterol Inhaler [Ventolin Hfa 1 - 2 puff INHALATION Q6H PRN #1 10/02/23 Inhaler] each Nirmatrelvir/Ritonavir [Paxlovid See Rx Instructions .ROUTE 10/02/23 2X150 mg-100 mg (Eua)] .COMPLEX #30 tab Allergies Allergy/AdvReac Type Severity Reaction Status Date / Time isosorbide [From Imdur] AdvReac headache & Verified 11/25/23 16:01 blurred vision metoprolol [From Toprol XL] AdvReac headache & Verified 11/25/23 16:01 blurred vision Review of Systems ROS Statement: Those systems with pertinent positive or pertinent negative responses have been documented in the HPI. ROS Other: All systems not noted in ROS Statement are negative. Past Medical History Past Medical History: Asthma, COPD, GERD/Reflux, Osteoarthritis (OA), Sleep Apnea/CPAP/BIPAP Additional Past Medical History / Comment(s): JEANIE/unable to tolerate cpap, pneumonias, bronchitis, chronic lower extremity lymphedema/redness/scabs, arthritis in multiple joints/chronic pain/chronic back pain History of Any Multi-Drug Resistant Organisms: None Reported Past Surgical History: Adenoidectomy, Appendectomy, Orthopedic Surgery, Tonsillectomy Additional Past Surgical History / Comment(s): Bilateral knee arthroscopy, UVPPP, carpal tunnel surgery, right shoulder surgery, colonoscopy/benign polypectomy. Past Anesthesia/Blood Transfusion Reactions: No Reported Reaction Past Psychological History: No Psychological Hx Reported Smoking Status: Former smoker Past Alcohol Use History: None Reported Past Drug Use History: None Reported - Past Family History Father History Unknown: Yes Family Medical History: Cancer Additional Family Medical History / Comment(s): . Mother History Unknown: Yes Family Medical History: Deep Vein Thrombosis (DVT) General Exam Limitations: no limitations General appearance: alert, in no apparent distress Head exam: Present: atraumatic, normocephalic Eye exam: Present: normal appearance, EOMI Neck exam: Present: normal inspection Respiratory exam: Present: normal lung sounds bilaterally. Absent: respiratory distress, wheezes, rales, rhonchi, stridor Cardiovascular Exam: Present: regular rate, normal rhythm, normal heart sounds. Absent: systolic murmur, diastolic murmur, rubs, gallop, clicks Neurological exam: Present: alert, oriented X3 Psychiatric exam: Present: normal affect, normal mood Skin exam: Present: warm, dry Course Vital Signs 11/25/23 11/25/23 11/25/23 15:57 16:45 17:38 Temperature 98.4 F 98.4 F Pulse Rate 97 94 Respiratory 24 20 20 Rate Blood Pressure 121/78 134/78 O2 Sat by Pulse 96 96 Oximetry Medical Decision Making - Medical Decision Making Was pt. sent in by a medical professional or institution (, PA, IS SUPPORT ANALYST, urgent care, hospital, or intermediate...) When possible be specific @ -No Did you speak to anyone other than the patient for history (EMS, parent, family, police, friend...)? What history was obtained from this source @ -No Did you review nursing and triage notes (agree or disagree)? Why? @ -I reviewed and agree with nursing and triage notes Were old charts reviewed (outside hosp., previous admission, EMS record, old EKG, old radiological studies, urgent care reports/EKG's, intermediate records)? Report findings @ -No old charts were reviewed Differential Diagnosis (chest pain, altered mental status, abdominal pain women, abdominal pain men, vaginal bleeding, weakness, fever, dyspnea, syncope, headache, dizziness, GI bleed, back pain, seizure, CVA, palpatations, mental health, musculoskeletal)? @ -Differential includes influenza, RSV, pneumonia, Covid, bronchitis, this is not an all inclusive list EKG interpreted by me (3pts min.). @ -As above X-rays interpreted by me (1pt min.). @ -Chest x-ray shows no acute process CT interpreted by me (1pt min.). @ -None done U/S interpreted by me (1pt. min.). @ -None done What testing was considered but not performed or refused? (CT, X-rays, U/S, labs)? Why? @ -None What meds were considered but not given or refused? Why? @ -None Did you discuss the management of the patient with other professionals (professionals i.e. , PA, IS SUPPORT ANALYST, lab, RT, psych nurse, community mental health social worker, workers' compensation magistrate, teacher, staff weapons officer, manager of case)? Give summary @ -No Was smoking cessation discussed for >3mins.? @ -No Was critical care preformed (if so, how long)? @ -No Were there social determinants of health that impacted care today? How? (Homelessness, low income, unemployed, alcoholism, drug addiction, transportation, low edu. Level, literacy, decrease access to med. care, long term, rehab)? @ -No Was there de-escalation of care discussed even if they declined (Discuss DNR or withdrawal of care, Hospice)? DNR status @ -No What co-morbidities impacted this encounter? (DM, HTN, Smoking, COPD, CAD, Cancer, CVA, ARF, Chemo, Hep., AIDS, mental health diagnosis, sleep apnea, morbid obesity)? @ -None Was patient admitted / discharged? Hospital course, mention meds given and route, prescriptions, significant lab abnormalities, going to OR and other pertinent info. @ -57-year-old male presenting with chief complaint of cough congestion and shortness of breath and body aches. History and physical exam were conducted. He is negative for influenza, RSV, Covid. Chest x-ray shows no acute process. He is educated on today's findings and supportive management of upper respiratory infection. Follow-up with PCP. Report back to ER with any new or worsening symptoms. Discussed return parameters and answered all questions. Patient conveyed verbal understanding and agreed to the plan. I discussed this case in detail with my attending Dr. Parisi Undiagnosed new problem with uncertain prognosis? @ -No Drug Therapy requiring intensive monitoring for toxicity (Heparin, Nitro, Insulin, Cardizem)? @ -No Were any procedures done? @ -No Diagnosis/symptom? @ -Upper respiratory infection Acute, or Chronic, or Acute on Chronic? @ -Acute Uncomplicated (without systemic symptoms) or Complicated (systemic symptoms)? @ -uncomplicated Side effects of treatment? @ -No Exacerbation, Progression, or Severe Exacerbation? @ -No Poses a threat to life or bodily function? How? (Chest pain, [place], [place], pneumonia, PE, COPD, DKA, ARF, appy, cholecystitis, CVA, Diverticulitis, Homicidal, Suicidal, threat to staff... and all critical care pts) @ -No - Lab Data Lab Results 11/25/23 Range/Units 16:03 Influenza Type A (PCR) Not Detected (Not Detectd) Influenza Type B (PCR) Not Detected (Not Detectd) RSV (PCR) Not Detected (Not Detectd) SARS-CoV-2 (PCR) Not Detected (Not Detectd) Disposition Clinical Impression: Upper respiratory tract infection Disposition: HOME SELF-CARE Condition: Good Instructions (If sedation given, give patient instructions): Upper Respiratory Infection (ED) Additional Instructions: Follow-up with PCP. Report back to ER with any new or worsening symptoms. Take Motrin and Tylenol as needed for pain control. Rest and drink plenty of fluids. Is patient prescribed a controlled substance at d/c from ED?: No Referrals: Alfredo Hope DO [Primary Care Provider] - 1-2 days Time of Disposition: 17:26
[2023-11-25 17:42] VITALS: BP 134/78; PULSE 94; RESP 20
== END 2023-11-25 17:40 | disposition home or self-care (01) ==
LOC: EC 15:09
DX: J06.9 Acute upper respiratory infection, unspecified (principal); J44.89 Other specified chronic obstructive pulmonary disease; M19.90 Unspecified osteoarthritis, unspecified site; Z20.822 Contact with and (suspected) exposure to COVID-19; Z79.51 Long term (current) use of inhaled steroids; Z79.899 Other long term (current) drug therapy; Z88.8 Allergy status to other drugs, medicaments and biological substances; Z87.891 Personal history of nicotine dependence
CPT/HCPCS: 71046; 87636; 99284

== ENCOUNTER 2023-11-29 16:33 | Emergency (ER) | payer MEDICARE ==
--- NOTE | 2023-11-29 17:14 | XR ---
EXAMINATION TYPE: XR chest 2V DATE OF EXAM: 11/29/2023 COMPARISON: 11/25/2023 HISTORY: Cough and shortness of breath TECHNIQUE: Frontal and lateral views of the chest are obtained. FINDINGS: There is no focal air space opacity, pleural effusion, or pneumothorax seen. The cardiac silhouette size is within normal limits. The osseous structures are intact. IMPRESSION: No acute cardiopulmonary process.
[2023-11-29] MEDS ORDERED: predniSONE 50 MG TAB PO STA (19:09)
--- NOTE | 2023-11-29 19:14 | ED ---
General Adult HPI - General Chief complaint: Upper Respiratory Infection Stated complaint: SOB/Headache Time Seen by Provider: 11/29/23 18:50 Source: patient, RN notes reviewed, old records reviewed Mode of arrival: ambulatory Limitations: no limitations - History of Present Illness Initial comments: Patient is a 57-year-old male who presents emergency Department who presents emergency Department complaining of respiratory symptoms. Has been ongoing for multiple days. Evaluated a few days ago and diagnosed with a viral syndrome. Presents today for further evaluation. Denies any chest pain, abdominal pain, nausea, vomiting. Endorses some rhinorrhea, nonproductive cough. Presents for further evaluation at this time. Workup started in triage. Today is day 4 or 5 of symptoms. - Related Data Home Medications Medication Instructions Recorded Confirmed Spironolactone [Aldactone] 25 mg PO DAILY 12/25/20 06/21/23 Meloxicam 7.5 mg PO DAILY 08/05/21 06/21/23 Fluticasone Propionate 110 Mcg 2 puff INHALATION RT-DAILY 06/11/23 06/21/23 [Flovent 110 Mcg Inhaler] Aspirin EC [Ecotrin Low Dose] 162 mg PO DAILY 06/21/23 06/21/23 Previous Rx's Medication Instructions Recorded Albuterol Inhaler [Ventolin Hfa 1 - 2 puff INHALATION Q6H PRN #1 06/22/23 Inhaler] each Budesonide-Formot 160-4.5 Mcg 2 puff INHALATION RT-BID #1 each 06/22/23 [Symbicort 160-4.5 Mcg Inhaler] Albuterol Inhaler [Ventolin Hfa 1 puff INHALATION QID #8 gm 08/04/23 Inhaler] Levofloxacin [Levaquin] 750 mg PO DAILY 10 Days #10 tab 08/04/23 predniSONE [Deltasone] 40 mg PO DAILY 5 Days #10 tab 08/04/23 Albuterol Inhaler [Ventolin Hfa 1 - 2 puff INHALATION Q6H PRN #1 10/02/23 Inhaler] each Nirmatrelvir/Ritonavir [Paxlovid See Rx Instructions .ROUTE 10/02/23 2X150 mg-100 mg (Eua)] .COMPLEX #30 tab Albuterol Inhaler [Ventolin Hfa 1 puff INHALATION QID #8 gm 11/29/23 Inhaler] predniSONE [Deltasone] 40 mg PO DAILY 5 Days #10 tab 11/29/23 Allergies Allergy/AdvReac Type Severity Reaction Status Date / Time isosorbide [From Imdur] AdvReac headache & Verified 11/29/23 16:41 blurred vision metoprolol [From Toprol XL] AdvReac headache & Verified 11/29/23 16:41 blurred vision Review of Systems ROS Statement: Those systems with pertinent positive or pertinent negative responses have been documented in the HPI. Review of Systems: CONST: Denies fever EYES: Denies blurry vision ENT: Endorses nasal congestion C/V: Denies Chest pain RESP: Endorses chronic dyspnea from COPD GI: Denies abdominal pain : Denies dysuria SKIN: Denies rash. MSK: Denies joint pain. NEURO: Denies headache ROS Other: All systems not noted in ROS Statement are negative. Past Medical History Past Medical History: Asthma, COPD, GERD/Reflux, Osteoarthritis (OA), Sleep Apnea/CPAP/BIPAP Additional Past Medical History / Comment(s): JEANIE/unable to tolerate cpap, pneumonias, bronchitis, chronic lower extremity lymphedema/redness/scabs, arthritis in multiple joints/chronic pain/chronic back pain History of Any Multi-Drug Resistant Organisms: None Reported Past Surgical History: Adenoidectomy, Appendectomy, Orthopedic Surgery, Tonsillectomy Additional Past Surgical History / Comment(s): Bilateral knee arthroscopy, UVPPP, carpal tunnel surgery, right shoulder surgery, colonoscopy/benign polypectomy. Past Anesthesia/Blood Transfusion Reactions: No Reported Reaction Past Psychological History: No Psychological Hx Reported Smoking Status: Former smoker Past Alcohol Use History: None Reported Past Drug Use History: None Reported - Past Family History Father History Unknown: Yes Family Medical History: Cancer Additional Family Medical History / Comment(s): . Mother History Unknown: Yes Family Medical History: Deep Vein Thrombosis (DVT) General Exam - General Exam Comments Initial Comments: General: Appears in no acute distress. HEAD: Normal with no signs of head trauma. EYES: EOMI, ENT: Hearing grossly intact, normal oropharynx. RESPIRATORY: Very mild bilateral end expiratory wheezing. No significant hypoxia. No increased work of breathing. C/V: Regular rate and rhythm. S1 and S2 auscultated, peripheral pulses 2+ and intact throughout ABD: Abd is nondistended EXT: no obvious deformity SKIN: No rashes or lesions observed on exposed skin. NEURO: Alert and oriented x 4. Limitations: no limitations Course Vital Signs 11/29/23 11/29/23 16:39 19:06 Temperature 98.6 F 97.8 F Pulse Rate 89 75 Respiratory 24 22 Rate Blood Pressure 145/78 101/48 O2 Sat by Pulse 95 94 L Oximetry Medical Decision Making - Medical Decision Making Was pt. sent in by a medical professional or institution (, LORNA, LICENSING COORDINATOR, urgent care, hospital, or custodial...) When possible be specific @ -No Did you speak to anyone other than the patient for history (EMS, parent, family, police, friend...)? What history was obtained from this source @ -No Did you review nursing and triage notes (agree or disagree)? Why? @ -I reviewed and agree with nursing and triage notes Were old charts reviewed (outside hosp., previous admission, EMS record, old EKG, old radiological studies, urgent care reports/EKG's, custodial records)? Report findings @ -Old charts reviewed Differential Diagnosis (chest pain, altered mental status, abdominal pain women, abdominal pain men, vaginal bleeding, weakness, fever, dyspnea, syncope, headache, dizziness, GI bleed, back pain, seizure, CVA, palpatations, mental health, musculoskeletal)? @ -Covid, influenza, pneumonia, COPD. This list is not all inclusive. EKG interpreted by me (3pts min.). @ -None done X-rays interpreted by me (1pt min.). @ -Chest x-ray negative for any obvious acute cardio pint process or infiltrate. CT interpreted by me (1pt min.). @ -None done U/S interpreted by me (1pt. min.). @ -None done What testing was considered but not performed or refused? (CT, X-rays, U/S, labs)? Why? @ -None What meds were considered but not given or refused? Why? @ -Considered breathing treatments however patient is minimally wheezy with no significant hypoxia or work of breathing. Did you discuss the management of the patient with other professionals (professionals i.e. LORNA Torres, LICENSING COORDINATOR, lab, RT, psych nurse, social sciences lecturer, powder cutting operator, teacher, tactical deception plans officer, field nurse case manager)? Give summary @ -No Was smoking cessation discussed for >3mins.? @ -No Was critical care preformed (if so, how long)? @ -No Were there social determinants of health that impacted care today? How? (Homelessness, low income, unemployed, alcoholism, drug addiction, transportation, low edu. Level, literacy, decrease access to med. care, snf, rehab)? @ -No Was there de-escalation of care discussed even if they declined (Discuss DNR or withdrawal of care, Hospice)? DNR status @ -No What co-morbidities impacted this encounter? (DM, HTN, Smoking, COPD, CAD, Cancer, CVA, ARF, Chemo, Hep., AIDS, mental health diagnosis, sleep apnea, mo rbid obesity)? @ -None Was patient admitted / discharged? Hospital course, mention meds given and route, prescriptions, significant lab abnormalities, going to OR and other pertinent info. @ -Based on the patient's presentation and physical exam, presents with upper respiratory symptoms. Patient has COVID-19. No evidence of pneumonia on chest x-ray. Vital signs are within acceptable limits. I evaluate the patient in triage as workup was started in the waiting room. We discussed his workup. He otherwise has no acute complaints at this time. He is outside of the window for Paxlovid therapy. Patient be started on steroids, and he will be given a dose prior to discharge. He was in agreement this plan. I will also provide him w ith a new prescription for an albuterol inhaler. Strict return precautions discussed. Recommended isolation as best as can produce 5 days after symptom onset. Discussed wearing a mask.. I will provide the patient with a prescription for prednisone, albuterol inhaler. I instructed the patient to follow up with their PCP in the next 1-3 days. I explained that the patient should return to the emergency department if they experience any worsening symptoms. Strict return precautions were discussed with the patient. The patient expressed understanding of these instructions. I answered all questions that the patient had. The patient was discharged home in good condition with their prescriptions and follow up information. Undiagnosed new problem with uncertain prognosis? @ -No Drug Therapy requiring intensive monitoring for toxicity (Heparin, Nitro, Insulin, Cardizem)? @ -No Were any procedures done? @ -No Diagnosis/symptom? @ -COVID-19 infection in the setting of chronic COPD Acute, or Chronic, or Acute on Chronic? @ -Acute Uncomplicated (without systemic symptoms) or Complicated (systemic symptoms)? @ -Complicated Side effects of treatment? @ -No Exacerbation, Progression, or Severe Exacerbation? @ -No Poses a threat to life or bodily function? How? (Chest pain, [place], [place], pneumonia, PE, COPD, DKA, ARF, appy, cholecystitis, CVA, Diverticulitis, Homicidal, Suicidal, threat to staff... and all critical care pts) @ -Unlikely - Lab Data Lab Results 11/29/23 Range/Units 16:42 Influenza Type A (PCR) Not Detected (Not Detectd) Influenza Type B (PCR) Not Detected (Not Detectd) RSV (PCR) Not Detected (Not Detectd) SARS-CoV-2 (PCR) Detected A (Not Detectd) Disposition Clinical Impression: COVID-19, COPD (chronic obstructive pulmonary disease) Disposition: HOME SELF-CARE Condition: Good Instructions (If sedation given, give patient instructions): COVID-19 (Coronavirus Disease 2019) (ED) Prescriptions: predniSONE [Deltasone] 40 mg PO DAILY 5 Days #10 tab Albuterol Inhaler [Ventolin Hfa Inhaler] 1 puff INHALATION QID #8 gm Is patient prescribed a controlled substance at d/c from ED?: No Referrals: Alfredo Hope DO [Primary Care Provider] - 1-2 days Time of Disposition: 19:08
[2023-11-29 19:48] VITALS: BP 101/48; PULSE 75; RESP 22; TEMP 97.8
== END 2023-11-29 19:26 | disposition home or self-care (01) ==
LOC: EC 16:33
DX: U07.1 COVID-19 (principal); J44.89 Other specified chronic obstructive pulmonary disease; G47.30 Sleep apnea, unspecified; Z87.891 Personal history of nicotine dependence; Z79.82 Long term (current) use of aspirin; Z79.51 Long term (current) use of inhaled steroids; Z88.8 Allergy status to other drugs, medicaments and biological substances
CPT/HCPCS: 87636; 71046; 99285; J7512

== ENCOUNTER 2023-12-07 16:30 | Emergency (ER) | payer MEDICARE ==
[2023-12-07 16:54] VITALS: BP 128/67; PULSE 83; RESP 16; TEMP 98.5
--- NOTE | 2023-12-07 16:58 | ED ---
General Adult HPI - General Source: patient, RN notes reviewed Mode of arrival: wheelchair Limitations: no limitations <Desire Willis - Last Filed: 12/07/23 16:56> <Wolfgang Stockton - Last Filed: 12/09/23 03:23> - General Chief complaint: Shortness of Breath Stated complaint: Sob Time Seen by Provider: 12/07/23 16:56 - History of Present Illness Initial comments: 57-year-old male presents to the emergency department for evaluation of cough, congestion, shortness of breath. He states that he was diagnosed with " pneumonia "on November 29. Upon review of his records it looks like he was diagnosed with influenza at that time, he had a normal chest x-ray. He reports that since then he has had continued symptoms with worsening shortness of breath. He presented to urgent care today who sent him to the emergency department for further evaluation. (Desire Willis) 57-year-old male with history of COPD,, sleep apnea, and morbid obesity presenting with chief complaint of cough and shortness of breath. Patient has been experiencing the symptoms for over a week. He has been seen here for the same complaints. He was diagnosed with influenza on November 29. Cough is nonproductive. Patient states that he has pain with coughing and deep breaths but no other chest pain. He admits to body aches as well. (Wolfgang Stockton) - Related Data Home Medications Medication Instructions Recorded Confirmed Spironolactone [Aldactone] 25 mg PO DAILY 12/25/20 06/21/23 Meloxicam 7.5 mg PO DAILY 08/05/21 06/21/23 Fluticasone Propionate 110 Mcg 2 puff INHALATION RT-DAILY 06/11/23 06/21/23 [Flovent 110 Mcg Inhaler] Aspirin EC [Ecotrin Low Dose] 162 mg PO DAILY 06/21/23 06/21/23 Previous Rx's Medication Instructions Recorded Albuterol Inhaler [Ventolin Hfa 1 - 2 puff INHALATION Q6H PRN #1 06/22/23 Inhaler] each Budesonide-Formot 160-4.5 Mcg 2 puff INHALATION RT-BID #1 each 06/22/23 [Symbicort 160-4.5 Mcg Inhaler] Albuterol Inhaler [Ventolin Hfa 1 puff INHALATION QID #8 gm 08/04/23 Inhaler] Levofloxacin [Levaquin] 750 mg PO DAILY 10 Days #10 tab 08/04/23 predniSONE [Deltasone] 40 mg PO DAILY 5 Days #10 tab 08/04/23 Albuterol Inhaler [Ventolin Hfa 1 - 2 puff INHALATION Q6H PRN #1 10/02/23 Inhaler] each Nirmatrelvir/Ritonavir [Paxlovid See Rx Instructions .ROUTE 10/02/23 2X150 mg-100 mg (Eua)] .COMPLEX #30 tab Albuterol Inhaler [Ventolin Hfa 1 puff INHALATION QID #8 gm 11/29/23 Inhaler] predniSONE [Deltasone] 40 mg PO DAILY 5 Days #10 tab 11/29/23 Azithromycin [Zithromax Z Pack] 1 tab PO DIRECTED #6 tab 12/07/23 Allergies Allergy/AdvReac Type Severity Reaction Status Date / Time isosorbide [From Imdur] AdvReac headache & Verified 12/08/23 16:41 blurred vision metoprolol [From Toprol XL] AdvReac headache & Verified 12/08/23 16:41 blurred vision Review of Systems ROS Other: All systems not noted in ROS Statement are negative. <Desire Willis - Last Filed: 12/07/23 16:56> ROS Other: All systems not noted in ROS Statement are negative. <Wolfgang Stockton - Last Filed: 12/09/23 03:23> ROS Statement: Those systems with pertinent positive or pertinent negative responses have been documented in the HPI. Past Medical History Past Medical History: Asthma, COPD, GERD/Reflux, Osteoarthritis (OA), Sleep Apnea/CPAP/BIPAP Additional Past Medical History / Comment(s): JEANIE/unable to tolerate cpap, pneumonias, bronchitis, chronic lower extremity lymphedema/redness/scabs, arthritis in multiple joints/chronic pain/chronic back pain History of Any Multi-Drug Resistant Organisms: None Reported Past Surgical History: Adenoidectomy, Appendectomy, Orthopedic Surgery, Tonsillectomy Additional Past Surgical History / Comment(s): Bilateral knee arthroscopy, UVPPP, carpal tunnel surgery, right shoulder surgery, colonoscopy/benign polypectomy. Past Anesthesia/Blood Transfusion Reactions: No Reported Reaction Past Psychological History: No Psychological Hx Reported Smoking Status: Former smoker Past Alcohol Use History: None Reported Past Drug Use History: None Reported - Past Family History Father History Unknown: Yes Family Medical History: Cancer Additional Family Medical History / Comment(s): . Mother History Unknown: Yes Family Medical History: Deep Vein Thrombosis (DVT) <Desire Willis - Last Filed: 12/07/23 16:56> General Exam Limitations: no limitations <Desire Willis - Last Filed: 12/07/23 16:56> General appearance: alert, in no apparent distress Head exam: Present: atraumatic, normocephalic Eye exam: Present: normal appearance, EOMI Neck exam: Present: normal inspection Respiratory exam: Present: rhonchi. Absent: respiratory distress, wheezes, rales, stridor Cardiovascular Exam: Present: regular rate, normal rhythm, normal heart sounds. Absent: systolic murmur, diastolic murmur, rubs, gallop, clicks Neurological exam: Present: alert, oriented X3 Psychiatric exam: Present: normal affect, normal mood Skin exam: Present: warm, dry <Wolfgang Stockton - Last Filed: 12/09/23 03:23> - General Exam Comments Initial Comments: Visual Physical Exam Vital signs reviewed General: Well-appearing, nontoxic, no acute distress. Head: Normocephalic, atraumatic Eyes: PERRLA, EOMI ENT: Airway patent Chest: Dyspneic Skin: No visual rash, normal skin tone Neuro: Alert and oriented 3 Musculoskeletal: No gross abnormalities (Desire Willis) Course Vital Signs 12/07/23 16:52 Temperature 98.5 F Pulse Rate 83 Respiratory 16 Rate Blood Pressure 128/67 O2 Sat by Pulse 96 Oximetry Medical Decision Making <Desire Willis - Last Filed: 12/07/23 16:56> - Lab Data Result diagrams: 12/07/23 17:16 12/07/23 17:16 <Wolfgang Stockton - Last Filed: 12/09/23 03:23> - Medical Decision Making Quick note performed by Desire Willis PA-C (Desire Willis) Was pt. sent in by a medical professional or institution (LORNA Torres, JAVA ORACLE DEVELOPER, urgent care, hospital, or senior care...) When possible be specific @ -No Did you speak to anyone other than the patient for history (EMS, parent, family, police, friend...)? What history was obtained from this source @ -No Did you review nursing and triage notes (agree or disagree)? Why? @ -I reviewed and agree with nursing and triage notes Were old charts reviewed (outside hosp., previous admission, EMS record, old EKG, old radiological studies, urgent care reports/EKG's, senior care records)? Report findings @ -Recent ER visits are reviewed Differential Diagnosis (chest pain, altered mental status, abdominal pain women, abdominal pain men, vaginal bleeding, weakness, fever, dyspnea, syncope, headache, dizziness, GI bleed, back pain, seizure, CVA, palpatations, mental health, musculoskeletal)? @ -MDM Differential Dyspnea: Coronary syndrome, arrhythmia, tamponade, asthma, COPD, pulmonary embolism, pneumonia, pneumothorax, pulmonary effusion, anaphylaxis, diabetic ketoacidosis, flailed chest, pulmonary contusion, diaphragmatic rupture, anemia, neuromuscular this is not meant to be an all-inclusive list. EKG interpreted by me (3pts min.). @ -As above X-rays interpreted by me (1pt min.). @Chest x-ray shows no acute process. By my interpretation there seems to be some haziness to the left lower lobe. CT interpreted by me (1pt min.). @ -None done U/S interpreted by me (1pt. min.). @ -None done What testing was considered but not performed or refused? (CT, X-rays, U/S, labs)? Why? @ -None What meds were considered but not given or refused? Why? @ -None Did you discuss the management of the patient with other professionals (professionals i.e. , PA, JAVA ORACLE DEVELOPER, lab, RT, psych nurse, addiction social worker, access assoc, teacher, systems support officer, lining caser)? Give summary @ -No Was smoking cessation discussed for >3mins.? @ -No Was critical care preformed (if so, how long)? @ -No Were there social determinants of health that impacted care today? How? (Ida elessness, low income, unemployed, alcoholism, drug addiction, transportation, low edu. Level, literacy, decrease access to med. care, fci, rehab)? @ -No Was there de-escalation of care discussed even if they declined (Discuss DNR or withdrawal of care, Hospice)? DNR status @ -No What co-morbidities impacted this encounter? (DM, HTN, Smoking, COPD, CAD, Cancer, CVA, ARF, Chemo, Hep., AIDS, mental health diagnosis, sleep apnea, morbid obesity)? @ -None Was patient admitted / discharged? Hospital course, mention meds given and route, prescriptions, significant lab abnormalities, going to OR and other pertinent info. @ -57-year-old male presenting with chief complaint of shortness of breath. This has been persistent since his diagnosis of influenza. Workup is initiated by triage. History and physical exam were conducted. On auscultation there her rhonchi heard at the bases. WBC 13.1. Negative troponin. Chest x-ray shows no acute process, however I find that there is questionable mild consolidation to the left lower lobe. Patient will be treated for lower respiratory tract i nfection with azithromycin. Discharged. Follow-up with PCP. Report back to ER with any new or worsening symptoms. Discussed return parameters and answered all questions. Patient conveyed verbal understanding and agreed to the plan. I discussed this case in detail with my attending Dr. Farrell Undiagnosed new problem with uncertain prognosis? @ -No Drug Therapy requiring intensive monitoring for toxicity (Heparin, Nitro, Insulin, Cardizem)? @ -No Were any procedures done? @ -No Diagnosis/symptom? @ -Lower respiratory tract infection Acute, or Chronic, or Acute on Chronic? @ -Acute Uncomplicated (without systemic symptoms) or Complicated (systemic symptoms)? @ -Uncomplicated Side effects of treatment? @ -No Exacerbation, Progression, or Severe Exacerbation? @ -No Poses a threat to life or bodily function? How? (Chest pain, [place], [place], pneumonia, PE, COPD, DKA, ARF, appy, cholecystitis, CVA, Diverticulitis, Homicidal, Suicidal, threat to staff... and all critical care pts) @ -Low likelihood (Wolfgang Stockton) - Lab Data Lab Results 12/07/23 12/07/23 12/07/23 Range/Units 17:16 17:16 17:16 WBC 13.1 H (3.8-10.6) k/uL RBC 5.28 (4.30-5.90) m/uL Hgb 14.5 (13.0-17.5) gm/dL Hct 44.3 (39.0-53.0) % MCV 83.9 (80.0-100.0) fL MCH 27.4 (25.0-35.0) pg MCHC 32.6 (31.0-37.0) g/dL RDW 14.5 (11.5-15.5) % Plt Count 274 (150-450) k/uL MPV 7.6 Neutrophils % 82 % Lymphocytes % 11 % Monocytes % 4 % Eosinophils % 2 % Basophils % 0 % Neutrophils # 10.7 H (1.3-7.7) k/uL Lymphocytes # 1.5 (1.0-4.8) k/uL Monocytes # 0.6 (0-1.0) k/uL Eosinophils # 0.2 (0-0.7) k/uL Basophils # 0.0 (0-0.2) k/uL PT 9.7 L (10.0-12.5) sec INR 0.9 (<1.2) APTT 24.9 (22.0-30.0) sec Sodium 138 (137-145) mmol/L Potassium 4.1 (3.5-5.1) mmol/L Chloride 101 (98-107) mmol/L Carbon Dioxide 29 (22-30) mmol/L Anion Gap 8 mmol/L BUN 27 H (9-20) mg/dL Creatinine 0.67 (0.66-1.25) mg/dL Est GFR (CKD-EPI)AfAm >90 (>60 ml/min/1.73 sqM) Est GFR (CKD-EPI)NonAf >90 (>60 ml/min/1.73 sqM) Glucose 122 H (74-99) mg/dL Plasma Lactic Acid Dionicio (0.7-2.0) mmol/L Calcium 9.8 (8.4-10.2) mg/dL Total Bilirubin 0.4 (0.2-1.3) mg/dL AST 21 (17-59) U/L ALT 19 (4-49) U/L Alkaline Phosphatase 93 (38-126) U/L Troponin I (0.000-0.034) ng/mL Total Protein 6.5 (6.3-8.2) g/dL Albumin 4.1 (3.5-5.0) g/dL Influenza Type A (PCR) (Not Detectd) Influenza Type B (PCR) (Not Detectd) RSV (PCR) (Not Detectd) SARS-CoV-2 (PCR) (Not Detectd) 12/07/23 12/07/23 12/07/23 Range/Units 17:16 17:16 17:16 WBC (3.8-10.6) k/uL RBC (4.30-5.90) m/uL Hgb (13.0-17.5) gm/dL Hct (39.0-53.0) % MCV (80.0-100.0) fL MCH (25.0-35.0) pg MCHC (31.0-37.0) g/dL RDW (11.5-15.5) % Plt Count (150-450) k/uL MPV Neutrophils % % Lymphocytes % % Monocytes % % Eosinophils % % Basophils % % Neutrophils # (1.3-7.7) k/uL Lymphocytes # (1.0-4.8) k/uL Monocytes # (0-1.0) k/uL Eosinophils # (0-0.7) k/uL Basophils # (0-0.2) k/uL PT (10.0-12.5) sec INR (<1.2) APTT (22.0-30.0) sec Sodium (137-145) mmol/L Potassium (3.5-5.1) mmol/L Chloride (98-107) mmol/L Carbon Dioxide (22-30) mmol/L Anion Gap mmol/L BUN (9-20) mg/dL Creatinine (0.66-1.25) mg/dL Est GFR (CKD-EPI)AfAm (>60 ml/min/1.73 sqM) Est GFR (CKD-EPI)NonAf (>60 ml/min/1.73 sqM) Glucose (74-99) mg/dL Plasma Lactic Acid Dionicio 1.1 (0.7-2.0) mmol/L Calcium (8.4-10.2) mg/dL Total Bilirubin (0.2-1.3) mg/dL AST (17-59) U/L ALT (4-49) U/L Alkaline Phosphatase (38-126) U/L Troponin I <0.012 (0.000-0.034) ng/mL Total Protein (6.3-8.2) g/dL Albumin (3.5-5.0) g/dL Influenza Type A (PCR) Not Detected (Not Detectd) Influenza Type B (PCR) Not Detected (Not Detectd) RSV (PCR) Not Detected (Not Detectd) SARS-CoV-2 (PCR) Not Detected (Not Detectd) Disposition <Desire Willis - Last Filed: 12/07/23 16:56> Is patient prescribed a controlled substance at d/c from ED?: No Time of Disposition: 20:21 <Wolfgang Stockton - Last Filed: 12/09/23 03:23> Clinical Impression: Lower respiratory infection Disposition: HOME SELF-CARE Condition: Fair Instructions (If sedation given, give patient instructions): Community Acquired Pneumonia (ED) Additional Instructions: Follow-up with PCP. Report back to ER with any new or worsening symptoms. Take medication as prescribed. Prescriptions: Azithromycin [Zithromax Z Pack] 1 tab PO DIRECTED #6 tab Referrals: Alfredo Hope DO [Primary Care Provider] - 1-2 days
[2023-12-07 17:28] LABS: Basophils % (A) 0 %; Eosinophils # (A) 0.2 k/uL (0-0.7); Eosinophils % (A) 2 %; HCT 44.3 % (39.0-53.0); HGB 14.5 gm/dL (13.0-17.5); Lymphocytes # (A) 1.5 k/uL (1.0-4.8); Lymphocytes % (A) 11 %; MCH 27.4 pg (25.0-35.0); MCHC 32.6 g/dL (31.0-37.0); MCV 83.9 fL (80.0-100.0); Mean Platelet Volume 7.6; Monocytes # (A) 0.6 k/uL (0-1.0); Monocytes % (A) 4 %; Neutrophils # (A) 10.7 k/uL (1.3-7.7); Neutrophils % (A) 82 %; Platelet Count 274 k/uL (150-450); RBC 5.28 m/uL (4.30-5.90); RDW 14.5 % (11.5-15.5); WBC 13.1 k/uL (3.8-10.6)
[2023-12-07 17:38] LABS: ALT 19 U/L (4-49); AST 21 U/L (17-59); African American GFR (CKD) >90 (>60 ml/min/1.73 sqM); Albumin 4.1 g/dL (3.5-5.0); Alkaline Phosphatase 93 U/L (38-126); Anion Gap 8 mmol/L; Blood Urea Nitrogen 27 mg/dL (9-20); Calcium 9.8 mg/dL (8.4-10.2); Carbon Dioxide 29 mmol/L (22-30); Chloride 101 mmol/L (98-107); Glucose 122 mg/dL (74-99); Non-African American GFR(CKD) >90 (>60 ml/min/1.73 sqM); Potassium 4.1 mmol/L (3.5-5.1); Sodium 138 mmol/L (137-145); Total Bilirubin 0.4 mg/dL (0.2-1.3); Total Protein 6.5 g/dL (6.3-8.2)
[2023-12-07 17:41] LABS: INR 0.9 (<1.2); Partial Thromboplastin Time 24.9 sec (22.0-30.0); Prothrombin Time 9.7 sec (10.0-12.5)
--- NOTE | 2023-12-07 17:42 | XR ---
EXAMINATION TYPE: XR chest 2V DATE OF EXAM: 12/07/2023 COMPARISON: 11/29/2023 HISTORY: 57 year-old male shortness of breath, difficulty breathing TECHNIQUE: PA and lateral views FINDINGS: Heart normal size. Mild interstitial prominence is unchanged. The aorta and pulmonary vasculature wit hin normal limits. No consolidation or pleural effusion. [facility] mid and lower thoracic spine. IMPRESSION: No acute cardiopulmonary process.
== END 2023-12-07 20:37 | disposition home or self-care (01) ==
LOC: EC 16:30
DX: J22 Unspecified acute lower respiratory infection (principal); J44.89 Other specified chronic obstructive pulmonary disease; G47.30 Sleep apnea, unspecified; E66.01 Morbid (severe) obesity due to excess calories; Z87.891 Personal history of nicotine dependence; Z20.822 Contact with and (suspected) exposure to COVID-19; Z68.44 Body mass index [BMI] 60.0-69.9, adult; Z79.51 Long term (current) use of inhaled steroids; Z79.82 Long term (current) use of aspirin; Z88.8 Allergy status to other drugs, medicaments and biological substances
CPT/HCPCS: 36415; 71046; 80053; 83605; 84484; 85025; 85610; 85730; 87636; 93005; 99285

== ENCOUNTER 2023-12-08 16:02 | Emergency (ER) | payer MEDICARE ==
--- NOTE | 2023-12-08 16:31 | ED ---
General Adult HPI - General Source: patient, RN notes reviewed Mode of arrival: ambulatory Limitations: no limitations <Desire Willis - Last Filed: 12/08/23 16:30> <Wolfgang Stockton - Last Filed: 12/09/23 01:12> - General Stated complaint: SOB Time Seen by Provider: 12/08/23 16:30 - History of Present Illness Initial comments: 57-year-old male presents to the emergency department for evaluation of worsening shortness of breath. He has been here multiple times for the same complaint recently. He was here yesterday and a full workup was done at that time including blood work and chest x-ray. Patient started on Azithromycin. (Desire Willis) 57-year-old male presenting with chief complaint of shortness of breath. Patient has been seen here on multiple occasions for the same complaint, he has had multiple workups. Yesterday he was started on azithromycin for a lower respiratory tract infection. Patient has shortness of breath with exertion. He is congested and is continuing to cough, he notes some chest pain with coughing but no other chest pain. Patient follows with operations label clerk Dr. Ragland, stat es that he has not been seen in several months. Patient has history of sleep apnea and does not wear his CPAP. (Wolfgang Stockton) - Related Data Home Medications Medication Instructions Recorded Confirmed Spironolactone [Aldactone] 25 mg PO DAILY 12/25/20 06/21/23 Meloxicam 7.5 mg PO DAILY 08/05/21 06/21/23 Fluticasone Propionate 110 Mcg 2 puff INHALATION RT-DAILY 06/11/23 06/21/23 [Flovent 110 Mcg Inhaler] Aspirin EC [Ecotrin Low Dose] 162 mg PO DAILY 06/21/23 06/21/23 Previous Rx's Medication Instructions Recorded Albuterol Inhaler [Ventolin Hfa 1 - 2 puff INHALATION Q6H PRN #1 06/22/23 Inhaler] each Budesonide-Formot 160-4.5 Mcg 2 puff INHALATION RT-BID #1 each 06/22/23 [Symbicort 160-4.5 Mcg Inhaler] Albuterol Inhaler [Ventolin Hfa 1 puff INHALATION QID #8 gm 08/04/23 Inhaler] Levofloxacin [Levaquin] 750 mg PO DAILY 10 Days #10 tab 08/04/23 predniSONE [Deltasone] 40 mg PO DAILY 5 Days #10 tab 08/04/23 Albuterol Inhaler [Ventolin Hfa 1 - 2 puff INHALATION Q6H PRN #1 10/02/23 Inhaler] each Nirmatrelvir/Ritonavir [Paxlovid See Rx Instructions .ROUTE 10/02/23 2X150 mg-100 mg (Eua)] .COMPLEX #30 tab Albuterol Inhaler [Ventolin Hfa 1 puff INHALATION QID #8 gm 11/29/23 Inhaler] predniSONE [Deltasone] 40 mg PO DAILY 5 Days #10 tab 11/29/23 Azithromycin [Zithromax Z Pack] 1 tab PO DIRECTED #6 tab 12/07/23 Allergies Allergy/AdvReac Type Severity Reaction Status Date / Time isosorbide [From Imdur] AdvReac headache & Verified 12/08/23 16:41 blurred vision metoprolol [From Toprol XL] AdvReac headache & Verified 12/08/23 16:41 blurred vision Review of Systems ROS Other: All systems not noted in ROS Statement are negative. <Desire Willis - Last Filed: 12/08/23 16:30> ROS Other: All systems not noted in ROS Statement are negative. <Wolfgang Stockton - Last Filed: 12/09/23 01:12> ROS Statement: Those systems with pertinent positive or pertinent negative responses have been documented in the HPI. Past Medical History Past Medical History: Asthma, COPD, GERD/Reflux, Osteoarthritis (OA), Sleep Apnea/CPAP/BIPAP Additional Past Medical History / Comment(s): JEANIE/unable to tolerate cpap, pneumonias, bronchitis, chronic lower extremity lymphedema/redness/scabs, arthritis in multiple joints/chronic pain/chronic back pain History of Any Multi-Drug Resistant Organisms: None Reported Past Surgical History: Adenoidectomy, Appendectomy, Orthopedic Surgery, Tonsillectomy Additional Past Surgical History / Comment(s): Bilateral knee arthroscopy, UVPPP, carpal tunnel surgery, right shoulder surgery, colonoscopy/benign po lypectomy. Past Anesthesia/Blood Transfusion Reactions: No Reported Reaction Past Psychological History: No Psychological Hx Reported Smoking Status: Former smoker Past Alcohol Use History: None Reported Past Drug Use History: None Reported - Past Family History Father History Unknown: Yes Family Medical History: Cancer Additional Family Medical History / Comment(s): . Mother History Unknown: Yes Family Medical History: Deep Vein Thrombosis (DVT) <Desire Willis - Last Filed: 12/08/23 16:30> General Exam <Desire Willis - Last Filed: 12/08/23 16:30> Limitations: no limitations General appearance: alert, in no apparent distress Head exam: Present: atraumatic, normocephalic Eye exam: Present: normal appearance, EOMI Neck exam: Present: normal inspection Respiratory exam: Present: normal lung sounds bilaterally. Absent: respiratory distress, wheezes, rales, rhonchi, stridor Cardiovascular Exam: Present: regular rate, normal rhythm, normal heart sounds. Absent: systolic murmur, diastolic murmur, rubs, gallop, clicks Neurological exam: Present: alert, oriented X3 Psychiatric exam: Present: normal affect, normal mood Skin exam: Present: warm, dry <Wolfgang Stockton - Last Filed: 12/09/23 01:12> - General Exam Comments Initial Comments: Visual Physical Exam Vital signs reviewed General: Well-appearing, nontoxic, no acute distress. Head: Normocephalic, atraumatic Eyes: PERRLA, EOMI ENT: Airway patent Chest: Nonlabored breathing Skin: No visual rash, normal skin tone Neuro: Alert and oriented 3 Musculoskeletal: No gross abnormalities (Desire Willis) Course Vital Signs 12/08/23 12/08/23 16:34 21:20 Temperature 98.3 F Pulse Rate 88 78 Respiratory 36 H 26 H Rate Blood Pressure 123/80 O2 Sat by Pulse 96 96 Oximetry EKG Findings - EKG Comments: EKG Findings:: Sinus rhythm ventricular rate 96. KS interval 134. QRS 120. QT 343. QTc 397. Right bundle branch block which is seen on previous EKGs, no acute changes from previous EKG <Wolfgang Stockton - Last Filed: 12/09/23 01:12> Medical Decision Making <Desire Willis - Last Filed: 12/08/23 16:30> - Lab Data Result diagrams: 12/08/23 16:32 12/08/23 16:32 <Wolfgang Stockton - Last Filed: 12/09/23 01:12> - Medical Decision Making Quick note preformed by Desire Willis PA-C (Desire Willis) Was pt. sent in by a medical professional or institution (LORNA Torres, [employer] OPERATOR, urgent care, hospital, or detention...) When possible be specific @ -No Did you speak to anyone other than the patient for history (EMS, parent, family, police, friend...)? What history was obtained from this source @ -No Did you review nursing and triage notes (agree or disagree)? Why? @ -I reviewed and agree with nursing and triage notes Were old charts reviewed (outside hosp., previous admission, EMS record, old EKG, old radiological studies, urgent care reports/EKG's, detention records)? Report findings @ -Previous ER visits are reviewed Differential Diagnosis (chest pain, altered mental status, abdominal pain women, abdominal pain men, vaginal bleeding, weakness, fever, dyspnea, syncope, headache, dizziness, GI bleed, back pain, seizure, CVA, palpatations, mental health, musculoskeletal)? @ -MDM Differential Dyspnea: Coronary syndrome, arrhythmia, tamponade, asthma, COPD, pulmonary embolism, pneumonia, pneumothorax, pulmonary effusion, anaphylaxis, diabetic ketoacidosis, flailed chest, pulmonary contusion, diaphragmatic rupture, anemia, neuromuscular this is not meant to be an all-inclusive list. EKG interpreted by me (3pts min.). @ -As above X-rays interpreted by me (1pt min.). @ -Chest x-ray shows no acute cardiopulmonary process CT interpreted by me (1pt min.). @ -None done U/S interpreted by me (1pt. min.). @ -None done What testing was considered but not performed or refused? (CT, X-rays, U/S, labs)? Why? @ -None What meds were considered but not given or refused? Why? @ -None Did you discuss the management of the patient with other professionals (professionals i.e. LORNA Torres, [employer] OPERATOR, lab, RT, psych nurse, social media assistant, spud sorter, teacher, affirmative action officer, case planner)? Give summary @ -No Was smoking cessation discussed for >3mins.? @ -No Was critical care preformed (if so, how long)? @ -No Were there social determinants of health that impacted care today? How? (Homelessness, low income, unemployed, alcoholism, drug addiction, transportation, low edu. Level, literacy, decrease access to med. care, prison, rehab)? @ -No Was there de-escalation of care discussed even if they declined (Discuss DNR or withdrawal of care, Hospice)? DNR status @ -No What co-morbidities impacted this encounter? (DM, HTN, Smoking, COPD, CAD, Cancer, CVA, ARF, Chemo, Hep., AIDS, mental health diagnosis, sleep apnea, morbid obesity)? @ -Morbid obesity, COPD Was patient admitted / discharged? Hospital course, mention meds given and route, prescriptions, significant lab abnormalities, going to OR and other perti nent info. @ -Discharged home. 57-year-old male presenting with chief complaint of shortness of breath. He has been seen here on multiple occasions recently for the same complaint. He was recently started on azithromycin. Oxygen saturation on room air and pulse are WNL. Heart and lungs are clear to auscultation. No leukocytosis or anemia. D-dimer is negative. Patient has negative troponins x 2. Negative for influenza, RSV, and COVID. Chest x-ray shows no acute process. EKG shows no acute changes from previous EKG. Patient is instructed to continue the azithromycin. His morbid obesity is likely influencing his exertional shortness of breath. He is instructed to follow-up with his operations label clerk. Also encouraged to wear his CPAP as he has a history of sleep apnea but does not wear his CPAP. Follow-up with PCP. Report back to ER with any new or worsening symptoms. Discussed return parameters and answered all questions. Patient conveyed verbal understanding and agreed to the plan. I discussed this case in detail with my attending Dr. Parisi Undiagnosed new problem with uncertain prognosis? @ -No Drug Therapy requiring intensive monitoring for toxicity (Heparin, Nitro, Insulin, Cardizem)? @ -No Were any procedures done? @ -No Diagnosis/symptom? @ -Dyspnea Acute, or Chronic, or Acute on Chronic? @ -Acute Uncomplicated (without systemic symptoms) or Complicated (systemic symptoms)? @ -Uncomplicated Side effects of treatment? @ -No Exacerbation, Progression, or Severe Exacerbation? @ -No Poses a threat to life or bodily function? How? (Chest pain, USA, MT, pneumonia, PE, COPD, DKA, ARF, appy, cholecystitis, CVA, Diverticulitis, Homicidal, Suicidal, threat to staff... and all critical care pts) @ -Low likelihood (Wolfgang Stockton) - Lab Data Lab Results 12/08/23 12/08/23 12/08/23 Range/Units 16:32 16:32 16:32 WBC 9.4 (3.8-10.6) k/uL RBC 5.32 (4.30-5.90) m/uL Hgb 14.6 (13.0-17.5) gm/dL Hct 44.8 (39.0-53.0) % MCV 84.2 (80.0-100.0) fL MCH 27.5 (25.0-35.0) pg MCHC 32.6 (31.0-37.0) g/dL RDW 14.4 (11.5-15.5) % Plt Count 259 (150-450) k/uL MPV 7.5 Neutrophils % 76 % Lymphocytes % 15 % Monocytes % 5 % Eosinophils % 2 % Basophils % 0 % Neutrophils # 7.1 (1.3-7.7) k/uL Lymphocytes # 1.4 (1.0-4.8) k/uL Monocytes # 0.5 (0-1.0) k/uL Eosinophils # 0.2 (0-0.7) k/uL Basophils # 0.0 (0-0.2) k/uL PT 9.6 L (10.0-12.5) sec INR 0.8 (<1.2) APTT 25.2 (22.0-30.0) sec D-Dimer (<0.60) mg/L FEU Sodium 140 (137-145) mmol/L Potassium 4.2 (3.5-5.1) mmol/L Chloride 102 (98-107) mmol/L Carbon Dioxide 27 (22-30) mmol/L Anion Gap 11 mmol/L BUN 25 H (9-20) mg/dL Creatinine 0.65 L (0.66-1.25) mg/dL Est GFR (CKD-EPI)AfAm >90 (>60 ml/min/1.73 sqM) Est GFR (CKD-EPI)NonAf >90 (>60 ml/min/1.73 sqM) Glucose 157 H (74-99) mg/dL Calcium 9.7 (8.4-10.2) mg/dL Total Bilirubin 0.5 (0.2-1.3) mg/dL AST 21 (17-59) U/L ALT 20 (4-49) U/L Alkaline Phosphatase 95 (38-126) U/L Troponin I (0.000-0.034) ng/mL Total Protein 6.6 (6.3-8.2) g/dL Albumin 4.2 (3.5-5.0) g/dL Influenza Type A (PCR) (Not Detectd) Influenza Type B (PCR) (Not Detectd) RSV (PCR) (Not Detectd) SARS-CoV-2 (PCR) (Not Detectd) 12/08/23 12/08/23 12/08/23 Range/Units 16:32 16:55 21:25 WBC (3.8-10.6) k/uL RBC (4.30-5.90) m/uL Hgb (13.0-17.5) gm/dL Hct (39.0-53.0) % MCV (80.0-100.0) fL MCH (25.0-35.0) pg MCHC (31.0-37.0) g/dL RDW (11.5-15.5) % Plt Count (150-450) k/uL MPV Neutrophils % % Lymphocytes % % Monocytes % % Eosinophils % % Basophils % % Neutrophils # (1.3-7.7) k/uL Lymphocytes # (1.0-4.8) k/uL Monocytes # (0-1.0) k/uL Eosinophils # (0-0.7) k/uL Basophils # (0-0.2) k/uL PT (10.0-12.5) sec INR (<1.2) APTT (22.0-30.0) sec D-Dimer (<0.60) mg/L FEU Sodium (137-145) mmol/L Potassium (3.5-5.1) mmol/L Chloride (98-107) mmol/L Carbon Dioxide (22-30) mmol/L Anion Gap mmol/L BUN (9-20) mg/dL Creatinine (0.66-1.25) mg/dL Est GFR (CKD-EPI)AfAm (>60 ml/min/1.73 sqM) Est GFR (CKD-EPI)NonAf (>60 ml/min/1.73 sqM) Glucose (74-99) mg/dL Calcium (8.4-10.2) mg/dL Total Bilirubin (0.2-1.3) mg/dL AST (17-59) U/L ALT (4-49) U/L Alkaline Phosphatase (38-126) U/L Troponin I <0.012 <0.012 (0.000-0.034) ng/mL Total Protein (6.3-8.2) g/dL Albumin (3.5-5.0) g/dL Influenza Type A (PCR) Not Detected (Not Detectd) Influenza Type B (PCR) Not Detected (Not Detectd) RSV (PCR) Not Detected (Not Detectd) SARS-CoV-2 (PCR) Not Detected (Not Detectd) 12/09/23 Range/Units 00:12 WBC (3.8-10.6) k/uL RBC (4.30-5.90) m/uL Hgb (13.0-17.5) gm/dL Hct (39.0-53.0) % MCV (80.0-100.0) fL MCH (25.0-35.0) pg MCHC (31.0-37.0) g/dL RDW (11.5-15.5) % Plt Count (150-450) k/uL MPV Neutrophils % % Lymphocytes % % Monocytes % % Eosinophils % % Basophils % % Neutrophils # (1.3-7.7) k/uL Lymphocytes # (1.0-4.8) k/uL Monocytes # (0-1.0) k/uL Eosinophils # (0-0.7) k/uL Basophils # (0-0.2) k/uL PT (10.0-12.5) sec INR (<1.2) APTT (22.0-30.0) sec D-Dimer 0.44 (<0.60) mg/L FEU Sodium (137-145) mmol/L Potassium (3.5-5.1) mmol/L Chloride (98-107) mmol/L Carbon Dioxide (22-30) mmol/L Anion Gap mmol/L BUN (9-20) mg/dL Creatinine (0.66-1.25) mg/dL Est GFR (CKD-EPI)AfAm (>60 ml/min/1.73 sqM) Est GFR (CKD-EPI)NonAf (>60 ml/min/1.73 sqM) Glucose (74-99) mg/dL Calcium (8.4-10.2) mg/dL Total Bilirubin (0.2-1.3) mg/dL AST (17-59) U/L ALT (4-49) U/L Alkaline Phosphatase (38-126) U/L Troponin I (0.000-0.034) ng/mL Total Protein (6.3-8.2) g/dL Albumin (3.5-5.0) g/dL Influenza Type A (PCR) (Not Detectd) Influenza Type B (PCR) (Not Detectd) RSV (PCR) (Not Detectd) SARS-CoV-2 (PCR) (Not Detectd) Disposition <Desire Willis - Last Filed: 12/08/23 16:30> Is patient prescribed a controlled substance at d/c from ED?: No Time of Disposition: 01:02 <Wolfgang Stockton - Last Filed: 12/09/23 01:12> Clinical Impression: Dyspnea, Obesity Disposition: HOME SELF-CARE Condition: Good Instructions (If sedation given, give patient instructions): Dyspnea (ED) Additional Instructions: Follow-up with PCP and pulmonology. Report back to ER with any new or worsening symptoms. Continue taking antibiotics as prescribed Referrals: Alfredo Hope DO [Primary Care Provider] - 1-2 days Charisma Ragland MD [STAFF PHYSICIAN] - 1-2 days
[2023-12-08 16:41] VITALS: TEMP 98.3
[2023-12-08 16:41] LABS: Basophils % (A) 0 %; Eosinophils # (A) 0.2 k/uL (0-0.7); Eosinophils % (A) 2 %; HCT 44.8 % (39.0-53.0); HGB 14.6 gm/dL (13.0-17.5); Lymphocytes # (A) 1.4 k/uL (1.0-4.8); Lymphocytes % (A) 15 %; MCH 27.5 pg (25.0-35.0); MCHC 32.6 g/dL (31.0-37.0); MCV 84.2 fL (80.0-100.0); Mean Platelet Volume 7.5; Monocytes # (A) 0.5 k/uL (0-1.0); Monocytes % (A) 5 %; Neutrophils # (A) 7.1 k/uL (1.3-7.7); Neutrophils % (A) 76 %; Platelet Count 259 k/uL (150-450); RBC 5.32 m/uL (4.30-5.90); RDW 14.4 % (11.5-15.5); WBC 9.4 k/uL (3.8-10.6)
[2023-12-08 16:49] LABS: ALT 20 U/L (4-49); AST 21 U/L (17-59); African American GFR (CKD) >90 (>60 ml/min/1.73 sqM); Albumin 4.2 g/dL (3.5-5.0); Alkaline Phosphatase 95 U/L (38-126); Anion Gap 11 mmol/L; Blood Urea Nitrogen 25 mg/dL (9-20); Calcium 9.7 mg/dL (8.4-10.2); Carbon Dioxide 27 mmol/L (22-30); Chloride 102 mmol/L (98-107); Glucose 157 mg/dL (74-99); Non-African American GFR(CKD) >90 (>60 ml/min/1.73 sqM); Potassium 4.2 mmol/L (3.5-5.1); Sodium 140 mmol/L (137-145); Total Bilirubin 0.5 mg/dL (0.2-1.3); Total Protein 6.6 g/dL (6.3-8.2)
[2023-12-08 16:59] LABS: INR 0.8 (<1.2); Partial Thromboplastin Time 25.2 sec (22.0-30.0); Prothrombin Time 9.6 sec (10.0-12.5)
--- NOTE | 2023-12-08 17:11 | XR ---
EXAMINATION TYPE: XR chest 2V DATE OF EXAM: 12/08/2023 4:58 PM CLINICAL INDICATION:Male, 57 years old with history of difficulty breathing; COMPARISON: Chest radiographs from 12/07/2023 TECHNIQUE: XR chest 2V Frontal and lateral views of the chest. FINDINGS: Lungs/Pleura: There is no evidence of pleural effusion, focal consolidation, or pneumothorax. Pulmonary vascularity: Unremarkable. Heart/mediastinum: Cardiomediastinal silhouette is unremarkable. Musculoskeletal: No acute osseous pathology. Other findings: None IMPRESSION: No acute cardiopulmonary disease/process.
[2023-12-09] MEDS ORDERED: SODIUM CHLORIDE 0.9% 500 ML 500 ML IV ONE
[2023-12-09 01:39] VITALS: BP 119/64; PULSE 86; RESP 20
== END 2023-12-09 01:19 | disposition home or self-care (01) ==
LOC: EC 16:02
DX: E66.9 Obesity, unspecified (principal); I45.10 Unspecified right bundle-branch block; J44.89 Other specified chronic obstructive pulmonary disease; G47.30 Sleep apnea, unspecified; Z87.891 Personal history of nicotine dependence; Z79.82 Long term (current) use of aspirin; Z20.822 Contact with and (suspected) exposure to COVID-19; Z79.51 Long term (current) use of inhaled steroids; Z68.44 Body mass index [BMI] 60.0-69.9, adult; Z88.8 Allergy status to other drugs, medicaments and biological substances
CPT/HCPCS: 36415; 71046; 80053; 84484; 85025; 85379; 85610; 85730; 87636; 93005; 96360; 99285

== ENCOUNTER 2023-12-18 16:11 | Observation (INO) | payer MEDICARE, OTHER ==
--- NOTE | 2023-12-18 16:40 | ED ---
General Adult HPI - General Chief complaint: Shortness of Breath Stated complaint: difficulty breathing Time Seen by Provider: 12/18/23 16:19 Source: patient, RN notes reviewed, old records reviewed Mode of arrival: wheelchair Limitations: no limitations - History of Present Illness Initial comments: 57-year-old male presenting for evaluation of cough, dyspnea, chest pain. Patient's symptoms have been on going for the past several weeks. He's been s een in the emergency department multiple occasions. He has history of asthma COPD and morbid obesity. He has no previous history of CAD. - Related Data Home Medications Medication Instructions Recorded Confirmed Spironolactone [Aldactone] 25 mg PO DAILY 12/25/20 06/21/23 Meloxicam 7.5 mg PO DAILY 08/05/21 06/21/23 Fluticasone Propionate 110 Mcg 2 puff INHALATION RT-DAILY 06/11/23 06/21/23 [Flovent 110 Mcg Inhaler] Aspirin EC [Ecotrin Low Dose] 162 mg PO DAILY 06/21/23 06/21/23 Previous Rx's Medication Instructions Recorded Albuterol Inhaler [Ventolin Hfa 1 - 2 puff INHALATION Q6H PRN #1 06/22/23 Inhaler] each Budesonide-Formot 160-4.5 Mcg 2 puff INHALATION RT-BID #1 each 06/22/23 [Symbicort 160-4.5 Mcg Inhaler] Albuterol Inhaler [Ventolin Hfa 1 puff INHALATION QID #8 gm 08/04/23 Inhaler] Levofloxacin [Levaquin] 750 mg PO DAILY 10 Days #10 tab 08/04/23 predniSONE [Deltasone] 40 mg PO DAILY 5 Days #10 tab 08/04/23 Albuterol Inhaler [Ventolin Hfa 1 - 2 puff INHALATION Q6H PRN #1 10/02/23 Inhaler] each Nirmatrelvir/Ritonavir [Paxlovid See Rx Instructions .ROUTE 10/02/23 2X150 mg-100 mg (Eua)] .COMPLEX #30 tab Albuterol Inhaler [Ventolin Hfa 1 puff INHALATION QID #8 gm 11/29/23 Inhaler] predniSONE [Deltasone] 40 mg PO DAILY 5 Days #10 tab 11/29/23 Azithromycin [Zithromax Z Pack] 1 tab PO DIRECTED #6 tab 12/07/23 Allergies Allergy/AdvReac Type Severity Reaction Status Date / Time isosorbide [From Imdur] AdvReac headache & Verified 12/18/23 16:17 blurred vision metoprolol [From Toprol XL] AdvReac headache & Verified 12/18/23 16:17 blurred vision Review of Systems ROS Statement: Those systems with pertinent positive or pertinent negative responses have been documented in the HPI. ROS Other: All systems not noted in ROS Statement are negative. Past Medical History Past Medical History: Asthma, COPD, GERD/Reflux, Osteoarthritis (OA), Sleep Apnea/CPAP/BIPAP Additional Past Medical History / Comment(s): JEANIE/unable to tolerate cpap, pneumonias, bronchitis, chronic lower extremity lymphedema/redness/scabs, arthritis in multiple joints/chronic pain/chronic back pain History of Any Multi-Drug Resistant Organisms: None Reported Past Surgical History: Adenoidectomy, Appendectomy, Orthopedic Surgery, Tonsillectomy Additional Past Surgical History / Comment(s): Bilateral knee arthroscopy, UVPPP, carpal tunnel surgery, right shoulder surgery, colonoscopy/benign polypectomy. Past Anesthesia/Blood Transfusion Reactions: No Reported Reaction Past Psychological History: No Psychological Hx Reported Smoking Status: Former smoker Past Alcohol Use History: None Reported Past Drug Use History: None Reported - Past Family History Father History Unknown: Yes Family Medical History: Cancer Additional Family Medical History / Comment(s): . Mother History Unknown: Yes Family Medical History: Deep Vein Thrombosis (DVT) General Exam Limitations: no limitations General appearance: alert, in no apparent distress Head exam: Present: atraumatic, normocephalic Eye exam: Present: normal appearance, PERRL ENT exam: Present: normal exam Neck exam: Present: normal inspection. Absent: tenderness, meningismus Respiratory exam: Present: wheezes, decreased breath sounds. Absent: respiratory distress Cardiovascular Exam: Present: regular rate, normal rhythm GI/Abdominal exam: Present: soft. Absent: distended, tenderness Neurological exam: Present: alert, oriented X3 Psychiatric exam: Present: normal affect, normal mood Course Vital Signs 12/18/23 12/18/23 16:15 16:30 Temperature 99.3 F Pulse Rate 91 87 Respiratory 28 H 30 H Rate Blood Pressure 167/74 127/84 O2 Sat by Pulse 95 96 Oximetry Medical Decision Making - Medical Decision Making Was pt. sent in by a medical professional or institution (, LORNA, PBX INSPECTOR, urgent care, hospital, or residential...) When possible be specific @ -No Did you speak to anyone other than the patient for history (EMS, parent, family, police, friend...)? What history was obtained from this source @ -No Did you review nursing and triage notes (agree or disagree)? Why? @ -I reviewed and agree with nursing and triage notes Were old charts reviewed (outside hosp., previous admission, EMS record, old EKG, old radiological studies, urgent care reports/EKG's, residential records)? Report findings @ -No old charts were reviewed Differential Diagnosis (chest pain, altered mental status, abdominal pain women, abdominal pain men, vaginal bleeding, weakness, fever, dyspnea, syncope, headache, dizziness, GI bleed, back pain, seizure, CVA, palpatations, mental health, musculoskeletal)? @ -[Differential Dyspnea: Coronary syndrome, arrhythmia, tamponade, asthma, COPD, pulmonary embolism, pneumonia, pneumothorax, pulmonary effusion, anaphylaxis, diabetic ketoacidosis, flailed chest, pulmonary contusion, diaphragmatic rupture, anemia, neuromuscular, this is not meant to be an all-inclusive list. EKG interpreted by me (3pts min.). @Sinus rhythm rate of 89, OH interval 169, QRS duration 125, QTC [address] segment elevation. Incomplete right bundle-branch block X-rays interpreted by me (1pt min.). @ -Chest x-ray questioning edema without focal pneumonia or pneumothorax. Poor penetration CT interpreted by me (1pt min.). @ -None done U/S interpreted by me (1pt. min.). @ -None done What testing was considered but not performed or refused? (CT, X-rays, U/S, labs)? Why? @ -None What meds were considered but not given or refused? Why? @ -None Did you discuss the management of the patient with other professionals (professionals i.e. LORNA Torres, PBX INSPECTOR, lab, RT, psych nurse, hospice social worker, boiler fireman, teacher, chief operations officer, manager rn case)? Give summary @ -[Dr. Quiroz Was smoking cessation discussed for >3mins.? @ -No Was critical care preformed (if so, how long)? @ -yes 35 min Were there social determinants of health that impacted care today? How? (Homelessness, low income, unemployed, alcoholism, drug addiction, transportation, low edu. Level, literacy, decrease access to med. care, usp, rehab)? @ -No Was there de-escalation of care discussed even if they declined (Discuss DNR or withdrawal of care, Hospice)? DNR status @ -No What co-morbidities impacted this encounter? (DM, HTN, Smoking, COPD, CAD, Cancer, CVA, ARF, Chemo, Hep., AIDS, mental health diagnosis, sleep apnea, morbid obesity)? @COPD, obesity associated hypoventilation. Was patient admitted / discharged? Hospital course, mention meds given and route, prescriptions, significant lab abnormalities, going to OR and other pertinent info. @ -57-year-old male with increased cough and dyspnea, worsening over the past several weeks. This is associated with central chest pain. Patient has EKG showing sinus rhythm without definitive signs of ischemia. Chest x-ray is negative for pneumothorax or focal pneumonia. CBC unremarkable, patient's troponin and BNP are negative. Normal electrolytes. Viral panel is negative. He will be admitted for COPD exacerbation. Undiagnosed new problem with uncertain prognosis? @ -No Drug Therapy requiring intensive monitoring for toxicity (Heparin, Nitro, Insulin, Cardizem)? @ -No Were any procedures done? @ -No Diagnosis/symptom? @ -COPD exacerbation Acute, or Chronic, or Acute on Chronic? @ -acute Uncomplicated (without systemic symptoms) or Complicated (systemic symptoms)? @ -default Side effects of treatment? @ -No Exacerbation, Progression, or Severe Exacerbation? @ -No Poses a threat to life or bodily function? How? (Chest pain, USA, VT, pneumonia, PE, COPD, DKA, ARF, appy, cholecystitis, CVA, Diverticulitis, Homicidal, Suicidal, threat to staff... and all critical care pts) @ -yes, copd - Lab Data Result diagrams: 12/18/23 16:29 12/18/23 16: Lab Results 12/18/23 12/18/23 12/18/23 Range/Units 16:29 16:29 16: WBC 10.2 (3.8-10.6) k/uL RBC 5.04 (4.30-5.90) m/uL Hgb 13.7 (13.0-17.5) gm/dL Hct 42.3 (39.0-53.0) % MCV 83.9 (80.0-100.0) fL MCH 27.2 (25.0-35.0) pg MCHC 32.5 (31.0-37.0) g/dL RDW 14.5 (11.5-15.5) % Plt Count 240 (150-450) k/uL MPV 7.4 Neutrophils % 81 % Lymphocytes % 11 % Monocytes % 5 % Eosinophils % 1 % Basophils % 0 % Neutrophils # 8.3 H (1.3-7.7) k/uL Lymphocytes # 1.2 (1.0-4.8) k/uL Monocytes # 0.5 (0-1.0) k/uL Eosinophils # 0.1 (0-0.7) k/uL Basophils # 0.0 (0-0.2) k/uL PT 9.7 L (10.0-12.5) sec INR 0.9 (<1.2) APTT 25.0 (22.0-30.0) sec Sodium 137 (137-145) mmol/L Potassium 4.1 (3.5-5.1) mmol/L Chloride 102 (98-107) mmol/L Carbon Dioxide 31 H (22-30) mmol/L Anion Gap 4 mmol/L BUN 17 (9-20) mg/dL Creatinine 0.55 L (0.66-1.25) mg/dL Est GFR (CKD-EPI)AfAm >90 (>60 ml/min/1.73 sqM) Est GFR (CKD-EPI)NonAf >90 (>60 ml/min/1.73 sqM) Glucose 139 H (74-99) mg/dL Calcium 8.9 (8.4-10.2) mg/dL Total Bilirubin 0.4 (0.2-1.3) mg/dL AST 22 (17-59) U/L ALT 20 (4-49) U/L Alkaline Phosphatase 79 (38-126) U/L Troponin I (0.000-0.034) ng/mL NT-Pro-B Natriuret Pep 67 pg/mL Total Protein 6.2 L (6.3-8.2) g/dL Albumin 3.9 (3.5-5.0) g/dL Influenza Type A (PCR) (Not Detectd) Influenza Type B (PCR) (Not Detectd) RSV (PCR) (Not Detectd) SARS-CoV-2 (PCR) (Not Detectd) 12/18/23 12/18/23 Range/Units 16:29 16:29 WBC (3.8-10.6) k/uL RBC (4.30-5.90) m/uL Hgb (13.0-17.5) gm/dL Hct (39.0-53.0) % MCV (80.0-100.0) fL MCH (25.0-35.0) pg MCHC (31.0-37.0) g/dL RDW (11.5-15.5) % Plt Count (150-450) k/uL MPV Neutrophils % % Lymphocytes % % Monocytes % % Eosinophils % % Basophils % % Neutrophils # (1.3-7.7) k/uL Lymphocytes # (1.0-4.8) k/uL Monocytes # (0-1.0) k/uL Eosinophils # (0-0.7) k/uL Basophils # (0-0.2) k/uL PT (10.0-12.5) sec INR (<1.2) APTT (22.0-30.0) sec Sodium (137-145) mmol/L Potassium (3.5-5.1) mmol/L Chloride (98-107) mmol/L Carbon Dioxide (22-30) mmol/L Anion Gap mmol/L BUN (9-20) mg/dL Creatinine (0.66-1.25) mg/dL Est GFR (CKD-EPI)AfAm (>60 ml/min/1.73 sqM) Est GFR (CKD-EPI)NonAf (>60 ml/min/1.73 sqM) Glucose (74-99) mg/dL Calcium (8.4-10.2) mg/dL Total Bilirubin (0.2-1.3) mg/dL AST (17-59) U/L ALT (4-49) U/L Alkaline Phosphatase (38-126) U/L Troponin I <0.012 (0.000-0.034) ng/mL NT-Pro-B Natriuret Pep pg/mL Total Protein (6.3-8.2) g/dL Albumin (3.5-5.0) g/dL Influenza Type A (PCR) Not Detected (Not Detectd) Influenza Type B (PCR) Not Detected (Not Detectd) RSV (PCR) Not Detected (Not Detectd) SARS-CoV-2 (PCR) Not Detected (Not Detectd) Critical Care Time Critical Care Time: Yes Total Critical Care Time: 35 Disposition Clinical Impression: Acute exacerbation of chronic obstructive airways disease Disposition: ADMITTED IP TO THIS [facility] Condition: Stable Is patient prescribed a controlled substance at d/c from ED?: No Referrals: Alfredo Hope DO [Primary Care Provider] - 1-2 days Time of Disposition: 17:32
[2023-12-18 16:51] LABS: Basophils % (A) 0 %; Eosinophils # (A) 0.1 k/uL (0-0.7); Eosinophils % (A) 1 %; HCT 42.3 % (39.0-53.0); HGB 13.7 gm/dL (13.0-17.5); Lymphocytes # (A) 1.2 k/uL (1.0-4.8); Lymphocytes % (A) 11 %; MCH 27.2 pg (25.0-35.0); MCHC 32.5 g/dL (31.0-37.0); MCV 83.9 fL (80.0-100.0); Mean Platelet Volume 7.4; Monocytes # (A) 0.5 k/uL (0-1.0); Monocytes % (A) 5 %; Neutrophils # (A) 8.3 k/uL (1.3-7.7); Neutrophils % (A) 81 %; Platelet Count 240 k/uL (150-450); RBC 5.04 m/uL (4.30-5.90); RDW 14.5 % (11.5-15.5); WBC 10.2 k/uL (3.8-10.6)
[2023-12-18 17:00] LABS: ALT 20 U/L (4-49); AST 22 U/L (17-59); African American GFR (CKD) >90 (>60 ml/min/1.73 sqM); Albumin 3.9 g/dL (3.5-5.0); Alkaline Phosphatase 79 U/L (38-126); Anion Gap 4 mmol/L; Blood Urea Nitrogen 17 mg/dL (9-20); Calcium 8.9 mg/dL (8.4-10.2); Carbon Dioxide 31 mmol/L (22-30); Chloride 102 mmol/L (98-107); Glucose 139 mg/dL (74-99); Non-African American GFR(CKD) >90 (>60 ml/min/1.73 sqM); Potassium 4.1 mmol/L (3.5-5.1); Sodium 137 mmol/L (137-145); Total Bilirubin 0.4 mg/dL (0.2-1.3); Total Protein 6.2 g/dL (6.3-8.2)
--- NOTE | 2023-12-18 17:07 | XR ---
EXAMINATION TYPE: XR chest 1V portable DATE OF EXAM: 12/18/2023 COMPARISON: Chest x-ray December 08, 2023 HISTORY: Difficulty in breathing. TECHNIQUE: Single frontal view of the chest is obtained. FINDINGS: There is no suspicious new focal air space opacity, pleural effusion, or pneumothorax seen . The cardiac silhouette size is stable and mildly enlarged. Mild central vascular congestion remain s present. The osseous structures are intact. IMPRESSION: Mild Cardiomegaly with suspected mild central vascular congestion. Correlate for CHF exa cerbation/fluid overload state.
[2023-12-18 17:08] LABS: INR 0.9 (<1.2); Prothrombin Time 9.7 sec (10.0-12.5)
[2023-12-18 17:09] LABS: NT-Pro-B-Type Natriuretic Pept 67 pg/mL
[2023-12-18] MEDS ORDERED: NALOXONE 0.4 MG/ML 1 ML VIAL IVP PRN (17:27)
[2023-12-18] MEDS ORDERED: IPRATROPIUM-ALBUTEROL 3 ML NEB INHALATION PRN (17:27)
[2023-12-18] MEDS: IPRATROPIUM-ALBUTEROL 3 ML NEB INHALATION STA (18:13)
[2023-12-18] MEDS: ALBUTEROL NEBULIZED 2.5 MG/3 ML INHALATION STA (18:13)
[2023-12-18] MEDS: methylPREDNISolone SOD SUCCI 125 MG/2 ML VIAL IV SCH (18:51)
[2023-12-18] MEDS: IPRATROPIUM-ALBUTEROL 3 ML NEB INHALATION SCH (20:15)
[2023-12-18] MEDS ORDERED: LACTULOSE 20 GM/30 ML CUP PO PRN (20:16)
[2023-12-18] MEDS ORDERED: MELATONIN 3 MG TABLET PO PRN (20:16)
[2023-12-18] MEDS ORDERED: ALPRAZolam 0.25 MG TAB PO PRN (20:16)
[2023-12-18] MEDS ORDERED: ONDANSETRON 4 MG/2 ML VIAL IVP PRN (20:16)
[2023-12-18] MEDS ORDERED: CALCIUM CARBONATE 500 MG CHEWABLE PO PRN (20:16)
--- NOTE | 2023-12-18 20:20 | P.HPIM ---
History of Present Illness H&P Date: 12/18/23 Chief Complaint: Short of breath This is a 57-year-old patient of Dr. Hope. Has a history of COPD, obstructive sleep apnea had a UPPP. Unable to use CPAP. Osteoarthritis in multiple joints especially the knees. chronically short of breath. Patient has several visits to the ER recently. With increasing shortness of breath wheezing. Now again presents with increasing shortness of breath. Some cough. Congestion unable to expectorate. No fever or chills. Appetite is good. Uses crutches at the baseline. Patient does follow with communications systems engineer Dr. Ragland. Patient sleeps poorly. Review of systems: GEN.: Tired, EYES: None HEENT: None NECK: None RESPIRATORY: As above CARDIOVASCULAR: None GASTROINTESTINAL: None GENITOURINARY: None MUSCULOSKELETAL: Joint pains LYMPHATICS: None HEMATOLOGICAL: None PSYCHIATRY: Anxious NEUROLOGICAL: None Social history: Lives with brother. Smoked for about 14 years stopped in 2006. Currently not employed. Used to work at [employer]. Physical examination: VITAL SIGNS: 98.3, 100, 18, 136/69, 95% room air GENERAL: BMI 60.3, reclining in bed, some shortness of breath EYES: Pupils equal. Conjunctiva normal. HEENT: External appearance of nose and ears normal, oral cavity grossly normal. NECK: JVD unable to assess masses not palpable. HEART: First and second heart sounds are normal; mild edema. LUNGS: Respiratory rate increased, distant breath sounds,. ABDOMEN: Soft, nontender, liver spleen not palpable, no masses palpable. PSYCH: Alert and oriented x3; mood and affect anxious NEUROLOGICAL: Cranial nerves grossly intact; no facial asymmetry, power and sensation grossly intact. LYMPHATICS: No lymph nodes palpable in the axilla and neck DERMATOLOGICAL: Very dry Skin with cracking sole of both the feet INVESTIGATIONS, reviewed in the clinical context: December 18, 2023: White count 10.2 hemoglobin 13.7 platelets 240 sodium 137 potassium 4.1 BUN 17 creatinine 0.55 Influenza type A's, type B, RSV, COVID-19: Not detected EKG tracing personally reviewed by me-normal sinus rhythm. Some incomplete right bundle jaja block Chest x-ray film personally reviewed by me-portable. Underpenetrated. No obvious infiltrate some band atelectasis. Assessment and plan: -Acute on chronic shortness of breath multifactorial including COPD exacerbation in an ex-smoker, pickwickian syndrome DuoNeb 4 times daily, nebulized Pulmicort and Perforomist. IV Solu-Medrol. -Pickwickian syndrome -Acute tracheobronchitis Doxycycline -Obstructive sleep apnea with the patient-previously had UPPP -Poor sleep hygiene, does not sleep well and enough -Bilateral knee arthralgia Tylenol when necessary -Morbid obesity BMI 60.3 Weight loss measures -Chronic left lower extremity venous insufficiency with skin changes -Bilateral feet ichthyosis Emollient cream Discussed with patient. Consult pulmonary Past Medical History Past Medical History: Asthma, COPD, GERD/Reflux, Osteoarthritis (OA), Sleep Apnea/CPAP/BIPAP Additional Past Medical History / Comment(s): JEANIE/unable to tolerate cpap, pneumonias, bronchitis, chronic lower extremity lymphedema/redness/scabs, arthritis in multiple joints/chronic pain/chronic back pain History of Any Multi-Drug Resistant Organisms: None Reported Past Surgical History: Adenoidectomy, Appendectomy, Orthopedic Surgery, Tonsillectomy Additional Past Surgical History / Comment(s): Bilateral knee arthroscopy, UVPPP, carpal tunnel surgery, right shoulder surgery, colonoscopy/benign polypectomy. Past Anesthesia/Blood Transfusion Reactions: No Reported Reaction Past Psychological History: No Psychological Hx Reported Smoking Status: Former smoker Past Alcohol Use History: None Reported Past Drug Use History: None Reported - Past Family History Father History Unknown: Yes Family Medical History: Cancer Additional Family Medical History / Comment(s): . Mother History Unknown: Yes Family Medical History: Deep Vein Thrombosis (DVT) Medications and Allergies Home Medications Medication Instructions Recorded Confirmed Type Spironolactone [Aldactone] 25 mg PO DAILY 12/25/20 12/18/23 History Meloxicam 7.5 mg PO DAILY PRN 08/05/21 12/18/23 History Albuterol Inhaler [Ventolin Hfa 1 - 2 puff INHALATION Q6H PRN #1 06/22/23 12/18/23 Rx Inhaler] each Umeclidinium [place] [Incruse 1 puff INHALATION RT-DAILY 12/18/23 12/18/23 History Ellipta] Allergies Allergy/AdvReac Type Severity Reaction Status Date / Time isosorbide [From Imdur] AdvReac headache & Verified 12/18/23 18:13 blurred vision metoprolol [From Toprol XL] AdvReac headache & Verified 12/18/23 18:13 blurred vision Physical Exam Vitals: Vital Signs Temp Pulse Pulse Resp BP BP Pulse Ox 12/18/23 19:41 98.3 F 100 18 136/69 95 12/18/23 18:30 88 16 131/75 99 12/18/23 18:29 96 12/18/23 18:14 96 12/18/23 18:00 90 25 H 114/73 96 12/18/23 17:30 87 17 121/69 96 12/18/23 17:00 93 120/57 96 12/18/23 16:30 94 25 H 127/84 96 12/18/23 16:15 99.3 F 91 28 H 167/74 95 Intake and Output 12/18/23 12/18/23 12/18/23 06:59 14:59 22:59 Other: Weight 190.509 kg Results CBC & Chem 7: 12/18/23 16:29 12/18/23 16:29 Labs: Abnormal Lab Results - Last 24 Hours (Table) 12/18/23 12/18/23 12/18/23 Range/Units 16:29 16:29 16:29 Neutrophils # 8.3 H (1.3-7.7) k/uL PT 9.7 L (10.0-12.5) sec Carbon Dioxide 31 H (22-30) mmol/L Creatinine 0.55 L (0.66-1.25) mg/dL Glucose 139 H (74-99) mg/dL Total Protein 6.2 L (6.3-8.2) g/dL
[2023-12-18] MEDS: ACETAMINOPHEN TAB 325 MG TAB PO PRN (21:53)
[2023-12-18] MEDS: ENOXAPARIN 40 MG/0.4 ML SYRINGE SQ SCH (21:53)
[2023-12-19] MEDS: methylPREDNISolone SOD SUCCI 40 MG/ML 1 ML VIAL IV SCH (01:19)
[2023-12-19] MEDS: AZITHROMYCIN 500 MG TAB PO SCH (11:01)
[2023-12-19] MEDS: NAPROXEN 250 MG TAB PO SCH (11:12)
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
--- NOTE | 2023-12-19 16:35 | P.PN ---
Progress Note - Text Progress Note Date: 12/19/23 Chief Complaint: Short of breath This is a 57-year-old patient of Dr. Hope. Has a history of COPD, obstructive sleep apnea had a UPPP. Unable to use CPAP. Osteoarthritis in multiple joints especially the knees. chronically short of breath. Patient has several visits to the ER recently. With increasing shortness of breath wheezing. Now again presents with increasing shortness of breath. Some cough. Congestion unable to expectorate. No fever or chills. Appetite is good. Uses crutches at the baseline. Patient does follow with net development manager Dr. Ragland. Patient sleeps poorly. Admitted with COPD exacerbation. Tracheobronchitis. December 19: Patient on nebulized bronchodilators, IV Solu-Medrol, Zithromax. Sitting up in a chair. Some improvement in breathing. Tolerating a diet. Active Medications Acetaminophen (Acetaminophen Tab 325 Mg Tab) 650 mg PO Q6HR PRN PRN Reason: Mild Pain or Fever > 100.5 Last Admin: 12/19/23 06:38 Dose: 650 mg Albuterol/Ipratropium (Ipratropium-Albuterol 3 Ml Neb) 3 ml INHALATION RT-Q2H PRN PRN Reason: Shortness Of Breath Or Wheezing Albuterol/Ipratropium (Ipratropium-Albuterol 3 Ml Neb) 3 ml INHALATION RT-QID [facility] Last Admin: 12/19/23 15:49 Dose: 3 ml Alprazolam (Alprazolam 0.25 Mg Tab) 0.25 mg PO Q6HR PRN PRN Reason: Anxiety Azithromycin (Azithromycin 500 Mg Tab) 500 mg PO DAILY [facility]; Protocol Stop: 12/21/23 09:01 Last Admin: 12/19/23 11:01 Dose: 500 mg Calcium Carbonate/Glycine (Calcium Carbonate 500 Mg Chewable) 1,000 mg PO Q4HR PRN PRN Reason: Dyspepsia Enoxaparin Sodium (Enoxaparin 40 Mg/0.4 Ml Syringe) 40 mg SQ DAILY [facility] Last Admin: 12/19/23 09:22 Dose: 40 mg Lactulose (Lactulose 20 Gm/30 Ml Cup) 20 gm PO DAILY PRN PRN Reason: Constipation Melatonin (Melatonin 3 Mg Tablet) 3 mg PO HS PRN PRN Reason: Insomnia Methylprednisolone Sodium Succinate (Methylprednisolone Sod Succi 40 Mg/Ml 1 Ml Vial) 40 mg IV Q8H [facility] Last Admin: 12/19/23 11:16 Dose: 40 mg Naloxone HCl (Naloxone 0.4 Mg/Ml 1 Ml Vial) 0.2 mg IVP Q2M PRN PRN Reason: Opioid Reversal Naproxen (Naproxen 250 Mg Tab) 250 mg PO BID [facility] Last Admin: 12/19/23 11:12 Dose: 250 mg Ondansetron HCl (Ondansetron 4 Mg/2 Ml Vial) 4 mg IVP Q8HR PRN PRN Reason: Nausea And Vomiting Social history: Lives with brother. Smoked for about 14 years stopped in 2006. Currently not employed. Used to work at [employer]. Physical examination: VITAL SIGNS: 97.4, 101, 15, 114/82, 95% room air GENERAL: Sitting up in the recliner, breathing a bit better EYES: Pupils equal. Conjunctiva normal. HEENT: External appearance of nose and ears normal, oral cavity grossly normal. NECK: JVD unable to assess masses not palpable. HEART: First and second heart sounds are normal; mild edema. LUNGS: Respiratory rate increased, improved air entry ABDOMEN: Soft, nontender, liver spleen not palpable, no masses palpable. PSYCH: Alert and oriented x3; mood and affect anxious NEUROLOGICAL: Cranial nerves grossly intact; no facial asymmetry, power and sensation grossly intact. DERMATOLOGICAL: Very dry Skin with cracking sole of both the feet INVESTIGATIONS, reviewed in the clinical context: December 19: Procalcitonin 0.09 December 18, 2023: White count 10.2 hemoglobin 13.7 platelets 240 sodium 137 potassium 4.1 BUN 17 creatinine 0.55 Influenza type A's, type B, RSV, COVID-19: Not detected EKG tracing personally reviewed by me-normal sinus rhythm. Some incomplete right bundle jaja block Chest x-ray film personally reviewed by me-portable. Underpenetrated. No obvious infiltrate some band atelectasis. Assessment and plan: -Acute on chronic shortness of breath multifactorial including COPD exacerbation in an ex-smoker, pickwickian syndrome: Better DuoNeb 4 times daily, nebulized Pulmicort and Perforomist. IV Solu-Medrol. -Pickwickian syndrome -Acute tracheobronchitis Doxycycline -Obstructive sleep apnea with the patient-previously had UPPP -Poor sleep hygiene, does not sleep well and enough -Bilateral knee arthralgia Tylenol when necessary -Morbid obesity BMI 60.3 Weight loss measures -Chronic left lower extremity venous insufficiency with skin changes -Bilateral feet ichthyosis Emollient cream Discussed. Continue current medication treatment plan. Past Medical History Past Medical History: Asthma, COPD, GERD/Reflux, Osteoarthritis (OA), Sleep Apnea/CPAP/BIPAP Additional Past Medical History / Comment(s): JEANIE/unable to tolerate cpap, pneumonias, bronchitis, chronic lower extremity lymphedema/redness/scabs, arthritis in multiple joints/chronic pain/chronic back pain History of Any Multi-Drug Resistant Organisms: None Reported Past Surgical History: Adenoidectomy, Appendectomy, Orthopedic Surgery, Tonsillectomy Additional Past Surgical History / Comment(s): Bilateral knee arthroscopy, UVPPP, carpal tunnel surgery, right shoulder surgery, colonoscopy/benign polypectomy. Past Anesthesia/Blood Transfusion Reactions: No Reported Reaction Past Psychological History: No Psychological Hx Reported Smoking Status: Former smoker Past Alcohol Use History: None Reported Past Drug Use History: None Reported
[2023-12-20] MEDS: SYMBICORT 160-4.5 MCG INHALER INHALATION SCH (08:22)
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
--- NOTE | 2023-12-20 18:48 | P.PN ---
Progress Note - Text Progress Note Date: 12/20/23 Chief Complaint: Short of breath This is a 57-year-old patient of Dr. Hope. Has a history of COPD, obstructive sleep apnea had a UPPP. Unable to use CPAP. Osteoarthritis in multiple joints especially the knees. chronically short of breath. Patient has several visits to the ER recently. With increasing shortness of breath wheezing. Now again presents with increasing shortness of breath. Some cough. Congestion unable to expectorate. No fever or chills. Appetite is good. Uses crutches at the baseline. Patient does follow with softball winder Dr. Ragland. Patient sleeps poorly. Admitted with COPD exacerbation. Tracheobronchitis. December 19: Patient on nebulized bronchodilators, IV Solu-Medrol, Zithromax. Sitting up in a chair. Some improvement in breathing. Tolerating a diet. December 20: Breathing better. Tolerating diet. Up in a chair. Discussed with pulmonary. Probably 1 more day. Active Medications Acetaminophen (Acetaminophen Tab 325 Mg Tab) 650 mg PO Q6HR PRN PRN Reason: Mild Pain or Fever > 100.5 Last Admin: 12/19/23 06:38 Dose: 650 mg Albuterol/Ipratropium (Ipratropium-Albuterol 3 Ml Neb) 3 ml INHALATION RT-Q2H PRN PRN Reason: Shortness Of Breath Or Wheezing Albuterol/Ipratropium (Ipratropium-Albuterol 3 Ml Neb) 3 ml INHALATION RT-QID [facility] Last Admin: 12/20/23 15:27 Dose: 3 ml Alprazolam (Alprazolam 0.25 Mg Tab) 0.25 mg PO Q6HR PRN PRN Reason: Anxiety Budesonide/Formoterol Fumarate (Symbicort 160-4.5 Mcg Inhaler) 2 puff INHALATION RT-BID [facility] Last Admin: 12/20/23 08:22 Dose: 2 puff Calcium Carbonate/Glycine (Calcium Carbonate 500 Mg Chewable) 1,000 mg PO Q4HR PRN PRN Reason: Dyspepsia Enoxaparin Sodium (Enoxaparin 40 Mg/0.4 Ml Syringe) 40 mg SQ DAILY [facility] Last Admin: 12/20/23 07:52 Dose: 40 mg Lactulose (Lactulose 20 Gm/30 Ml Cup) 20 gm PO DAILY PRN PRN Reason: Constipation Melatonin (Melatonin 3 Mg Tablet) 3 mg PO HS PRN PRN Reason: Insomnia Methylprednisolone Sodium Succinate (Methylprednisolone Sod Succi 40 Mg/Ml 1 Ml Vial) 40 mg IV Q8H [facility] Last Admin: 12/20/23 17:55 Dose: 40 mg Naloxone HCl (Naloxone 0.4 Mg/Ml 1 Ml Vial) 0.2 mg IVP Q2M PRN PRN Reason: Opioid Reversal Naproxen (Naproxen 250 Mg Tab) 250 mg PO BID [facility] Last Admin: 12/20/23 07:51 Dose: 250 mg Ondansetron HCl (Ondansetron 4 Mg/2 Ml Vial) 4 mg IVP Q8HR PRN PRN Reason: Nausea And Vomiting Social history: Lives with brother. Smoked for about 14 years stopped in 2006. Currently not employed. Used to work at [employer]. Physical examination: VITAL SIGNS: 97.5, 101, 17, 119/77, 94% room air GENERAL: Sitting up in the recliner, breathing better EYES: Pupils equal. Conjunctiva normal. HEENT: External appearance of nose and ears normal, oral cavity grossly normal. NECK: JVD unable to assess masses not palpable. HEART: First and second heart sounds are normal; mild edema. LUNGS: Respiratory rate increased, improved air entry ABDOMEN: Soft, nontender, liver spleen not palpable, no masses palpable. PSYCH: Alert and oriented x3; mood and affect anxious NEUROLOGICAL: Cranial nerves grossly intact; no facial asymmetry, power and sensation grossly intact. DERMATOLOGICAL: Very dry Skin with cracking sole of both the feet INVESTIGATIONS, reviewed in the clinical context: December 19: Procalcitonin 0.09 December 18, 2023: White count 10.2 hemoglobin 13.7 platelets 240 sodium 137 potassium 4.1 BUN 17 creatinine 0.55 Influenza type A's, type B, RSV, COVID-19: Not detected EKG tracing personally reviewed by me-normal sinus rhythm. Some incomplete right bundle jaja block Chest x-ray film personally reviewed by me-portable. Underpenetrated. No o bvious infiltrate some band atelectasis. Assessment and plan: -Acute on chronic shortness of breath multifactorial including COPD exacerbation in an ex-smoker, pickwickian syndrome: Better DuoNeb 4 times daily, nebulized Pulmicort and Perforomist. IV Solu-Medrol. -Pickwickian syndrome -Acute tracheobronchitis Doxycycline -Obstructive sleep apnea with the patient-previously had UPPP -Poor sleep hygiene, does not sleep well and enough -Bilateral knee arthralgia Tylenol when necessary -Morbid obesity BMI 60.3 Weight loss measures -Chronic left lower extremity venous insufficiency with skin changes -Bilateral feet ichthyosis Emollient cream Doing better. Discussed with pulmonary. Hopefully discharge tomorrow. Past Medical History Past Medical History: Asthma, COPD, GERD/Reflux, Osteoarthritis (OA), Sleep Apnea/CPAP/BIPAP Additional Past Medical History / Comment(s): JEANIE/unable to tolerate cpap, pneumonias, bronchitis, chronic lower extremity lymphedema/redness/scabs, arthritis in multiple joints/chronic pain/chronic back pain History of Any Multi-Drug Resistant Organisms: None Reported Past Surgical History: Adenoidectomy, Appendectomy, Orthopedic Surgery, Tonsillectomy Additional Past Surgical History / Comment(s): Bilateral knee arthroscopy, UVPPP, carpal tunnel surgery, right shoulder surgery, colonoscopy/benign polypectomy. Past Anesthesia/Blood Transfusion Reactions: No Reported Reaction Past Psychological History: No Psychological Hx Reported Smoking Status: Former smoker Past Alcohol Use History: None Reported Past Drug Use History: None Reported
[2023-12-21 07:19] VITALS: BP 122/77; RESP 16; TEMP 98
[2023-12-21] MEDS: predniSONE 20 MG TAB PO SCH (08:39)
[2023-12-21 09:17] VITALS: PULSE 60
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
--- NOTE | 2023-12-21 21:12 | P.DS ---
Providers Date of admission: 12/18/23 17:28 Expected date of discharge: 12/21/23 Attending physician: Kiran Quiroz Consults: 12/18/23 17:27 Consult Physician Routine Consulting Provider: Charisma Ragland Consult Reason/Comments: COPD Do you want consulting provider notified?: Yes Primary care physician: Alfredo [facility] Course: Chief Complaint: Short of breath This is a 57-year-old patient of Dr. Hope. Has a history of COPD, obstructive sleep apnea had a UPPP. Unable to use CPAP. Osteoarthritis in multiple joints especially the knees. chronically short of breath. Patient has several visits to the ER recently. With increasing shortness of breath wheezing. Now again presents with increasing shortness of breath. Some cough. Congestion unable to expectorate. No fever or chills. Appetite is good. Uses crutches at the baseline. Patient does follow with production coordinator Dr. Ragland. Patient sleeps poorly. Admitted with COPD exacerbation. Tracheobronchitis. December 19: Patient on nebulized bronchodilators, IV Solu-Medrol, Zithromax. Sitting up in a chair. Some improvement in breathing. Tolerating a diet. December 20: Breathing better. Tolerating diet. Up in a chair. Discussed with pulmonary. Probably 1 more day. December 21: Sitting up. Discussed with the patient. There is some change in his insurance. I will follow-up with Dr. Ragland. Prednisone taper. Other inhalers to continue. Doing better. Social history: Lives with brother. Smoked for about 14 years stopped in 2006. Currently not employed. Used to work at [employer]. Physical examination: VITAL SIGNS: 98, 64, 16, 122 x 77, 98% room air GENERAL: Sitting up in bed, breathing better EYES: Pupils equal. Conjunctiva normal. HEENT: External appearance of nose and ears normal, oral cavity grossly normal. NECK: JVD unable to assess masses not palpable. HEART: First and second heart sounds are normal; mild edema. LUNGS: Respiratory rate increased, improved air entry ABDOMEN: Soft, nontender, liver spleen not palpable, no masses palpable. PSYCH: Alert and oriented x3; mood and affect anxious NEUROLOGICAL: Cranial nerves grossly intact; no facial asymmetry, power and sensation grossly intact. DERMATOLOGICAL: Very dry Skin with cracking sole of both the feet INVESTIGATIONS, reviewed in the clinical context: December 19: Procalcitonin 0.09 December 18, 2023: White count 10.2 hemoglobin 13.7 platelets 240 sodium 137 potassium 4.1 BUN 17 creatinine 0.55 Influenza type A's, type B, RSV, COVID-19: Not detected EKG tracing personally reviewed by me-normal sinus rhythm. Some incomplete right bundle jaja block Chest x-ray film personally reviewed by me-portable. Underpenetrated. No obvious infiltrate some band atelectasis. Assessment and plan: -Acute on chronic shortness of breath multifactorial including COPD exacerbation in an ex-smoker, pickwickian syndrome: Better DuoNeb 4 times daily, nebulized Pulmicort and Perforomist. IV Solu-Medrol. Discharged with prednisone taper. Home inhalers. Follow-up with Dr. Ragland. -Pickwickian syndrome -Acute tracheobronchitis -Obstructive sleep apnea with the patient-previously had UPPP -Poor sleep hygiene, does not sleep well and enough -Bilateral knee arthralgia Tylenol when necessary -Morbid obesity BMI 60.3 Weight loss measures -Chronic left lower extremity venous insufficiency with skin changes -Bilateral feet ichthyosis Emollient cream Disposition: Home Past Medical History Past Medical History: Asthma, COPD, GERD/Reflux, Osteoarthritis (OA), Sleep Apnea/CPAP/BIPAP Additional Past Medical History / Comment(s): JEANIE/unable to tolerate cpap, pneumonias, bronchitis, chronic lower extremity lymphedema/redness/scabs, arthritis in multiple joints/chronic pain/chronic back pain History of Any Multi-Drug Resistant Organisms: None Reported Past Surgical History: Adenoidectomy, Appendectomy, Orthopedic Surgery, Tonsillectomy Additional Past Surgical History / Comment(s): Bilateral knee arthroscopy, UVPPP, carpal tunnel surgery, right shoulder surgery, colonoscopy/benign polypectomy. Past Anesthesia/Blood Transfusion Reactions: No Reported Reaction Past Psychological History: No Psychological Hx Reported Smoking Status: Former smoker Past Alcohol Use History: None Reported Past Drug Use History: None Reported Patient Condition at Discharge: Stable Plan - Discharge Summary Discharge Rx Participant: No New Discharge Prescriptions: New predniSONE 10 mg PO DAILY #30 tab Budesonide-Formot 160-4.5 Mcg [Symbicort 160-4.5 Mcg Inhaler] 2 puff INHALATION RT-BID #1 each Continue Spironolactone [Aldactone] 25 mg PO DAILY Umeclidinium [place] [Incruse Ellipta] 1 puff INHALATION RT-DAILY Meloxicam 7.5 mg PO DAILY PRN PRN Reason: Pain Albuterol Inhaler [Ventolin Hfa Inhaler] 1 - 2 puff INHALATION Q6H PRN #1 each PRN Reason: Shortness Of Breath Or Wheezing Discharge Medication List Spironolactone [Aldactone] 25 mg PO DAILY 12/25/20 [History] Meloxicam 7.5 mg PO DAILY PRN 08/05/21 [History] Albuterol Inhaler [Ventolin Hfa Inhaler] 1 - 2 puff INHALATION Q6H PRN #1 each 06/22/23 [Rx] Umeclidinium [place] [Incruse Ellipta] 1 puff INHALATION RT-DAILY 12/18/23 [History] Budesonide-Formot 160-4.5 Mcg [Symbicort 160-4.5 Mcg Inhaler] 2 puff INHALATION RT-BID #1 each 12/21/23 [Rx] predniSONE 10 mg PO DAILY #30 tab 12/21/23 [Rx] Follow up Appointment(s)/Referral(s): Alfredo Hope DO [Primary Care Provider] - 1-2 days Charisma Ragland MD [STAFF PHYSICIAN] - 01/14/24 8:30 am Patient Instructions/Handouts: COPD (Chronic Obstructive Pulmonary Disease) (DC) Discharge Disposition: HOME SELF-CARE
== END 2023-12-21 11:40 | disposition home or self-care (01) ==
LOC: EC 16:11 → 6NMEDSUR 17:28
PROVIDERS: ADMIT Hospitalist; ATTEND Hospitalist
DX: J44.1 Chronic obstructive pulmonary disease with (acute) exacerbation (principal); J44.0 Chronic obstructive pulmonary disease with (acute) lower respiratory infection; J20.9 Acute bronchitis, unspecified; E66.2 Morbid (severe) obesity with alveolar hypoventilation; Z68.44 Body mass index [BMI] 60.0-69.9, adult; I45.10 Unspecified right bundle-branch block; I87.2 Venous insufficiency (chronic) (peripheral); Q80.9 Congenital ichthyosis, unspecified; F40.240 Claustrophobia; E87.3 Alkalosis; I51.7 Cardiomegaly; M17.0 Bilateral primary osteoarthritis of knee; R60.0 Localized edema; Z11.52 Encounter for screening for COVID-19; Z11.59 Encounter for screening for other viral diseases; Z79.1 Long term (current) use of non-steroidal anti-inflammatories (NSAID); Z79.82 Long term (current) use of aspirin; Z79.51 Long term (current) use of inhaled steroids; Z79.899 Other long term (current) drug therapy; Z88.8 Allergy status to other drugs, medicaments and biological substances; Z87.891 Personal history of nicotine dependence; Z86.16 Personal history of COVID-19
CPT/HCPCS: 96376 ×3; 96372 ×3; 96365; 96375; 99291; 36415; 94640 ×6; 94760; 93005; 83880; 80053; 84484; 85025; 85610; 85730; 87040; 84145; 87636; 71045; G0378 ×4; J2920 ×3; J2930; J0696; J1650 ×3; J7512

== ENCOUNTER 2023-12-23 16:55 | Emergency (ER) | payer MEDICARE ==
--- NOTE | 2023-12-23 17:18 | ED ---
SOB HPI - General Source: patient, RN notes reviewed Mode of arrival: ambulatory Limitations: no limitations <Ирина Irby - Last Filed: 12/23/23 17:18> - General Source: patient, RN notes reviewed, old records reviewed <Will Tripathi - Last Filed: 12/23/23 22:52> - General Chief Complaint: Shortness of Breath Stated Complaint: SOB/chest pain Time Seen by Provider: 12/23/23 17:18 - History of Present Illness Initial Comments: Patient is a 58-year-old male presented to ER with chief complaint of dyspnea. Patient was recently released on 12-21-2023 being treated for viral pneumonia. Patient states he has been experience shortness of breath and chest pain since discharge. Denies home O2 use. (Ирина Irby) Patient is a 58-year-old male presents emergency department complaining of chronic dyspnea. Has been seen multiple times over the last month for similar complaints. Patient has a history of COPD, obesity, asthma. Was recently discharged. States he is still short of breath and presents for evaluation. No significant changes since he got discharged home. States he feels the same and is uncertain why he was discharged. Is not on oxygen normally and is not requiring it at this time. Patient was originally seen as a quick note. Has had increased coughing despite being on steroids as well as breathing treatments at home. Presents for further evaluation. (Will Tripathi) - Related Data Home Medications Medication Instructions Recorded Confirmed Spironolactone [Aldactone] 25 mg PO DAILY 12/25/20 12/18/23 Meloxicam 7.5 mg PO DAILY PRN 08/05/21 12/18/23 Umeclidinium [place] [Incruse 1 puff INHALATION RT-DAILY 12/18/23 12/18/23 Ellipta] Previous Rx's Medication Instructions Recorded Albuterol Inhaler [Ventolin Hfa 1 - 2 puff INHALATION Q6H PRN #1 06/22/23 Inhaler] each Budesonide-Formot 160-4.5 Mcg 2 puff INHALATION RT-BID #1 each 12/21/23 [Symbicort 160-4.5 Mcg Inhaler] predniSONE 10 mg PO DAILY #30 tab 12/21/23 Levofloxacin [Levaquin] 750 mg PO DAILY 7 Days #7 tab 12/23/23 Allergies Allergy/AdvReac Type Severity Reaction Status Date / Time isosorbide [From Imdur] AdvReac headache & Verified 12/23/23 17:03 blurred vision metoprolol [From Toprol XL] AdvReac headache & Verified 12/23/23 17:03 blurred vision Review of Systems ROS Other: All systems not noted in ROS Statement are negative. <Ирина Irby - Last Filed: 12/23/23 17:18> ROS Other: All systems not noted in ROS Statement are negative. <Will Tripathi - Last Filed: 12/23/23 22:52> ROS Statement: Those systems with pertinent positive or pertinent negative responses have been documented in the HPI. Review of Systems: CONST: Denies fever EYES: Denies blurry vision ENT: Denies nasal congestion C/V: Denies Chest pain RESP: Endorses shortness of breath, cough GI: Denies abdominal pain : Denies dysuria SKIN: Denies rash. MSK: Denies joint pain. NEURO: Denies headache (Will Tripathi) Past Medical History Past Medical History: Asthma, COPD, GERD/Reflux, Osteoarthritis (OA), Sleep Apnea/CPAP/BIPAP Additional Past Medical History / Comment(s): JEANIE/unable to tolerate cpap, pneumonias, bronchitis, chronic lower extremity lymphedema/redness/scabs, arthritis in multiple joints/chronic pain/chronic back pain History of Any Multi-Drug Resistant Organisms: None Reported Past Surgical History: Adenoidectomy, Appendectomy, Orthopedic Surgery, Tonsillectomy Additional Past Surgical History / Comment(s): Bilateral knee arthroscopy, UVPPP, carpal tunnel surgery, right shoulder surgery, colonoscopy/benign polypectomy. Past Anesthesia/Blood Transfusion Reactions: No Reported Reaction Past Psychological History: No Psychological Hx Reported Smoking Status: Former smoker Past Alcohol Use History: None Reported Past Drug Use History: None Reported - Past Family History Father History Unknown: Yes Family Medical History: Cancer Additional Family Medical History / Comment(s): . Mother History Unknown: Yes Family Medical History: Deep Vein Thrombosis (DVT) <Ирина Irby - Last Filed: 12/23/23 17:18> General Exam Limitations: no limitations <Ирина Irby - Last Filed: 12/23/23 17:18> <Will Tripathi - Last Filed: 12/23/23 22:52> - General Exam Comments Initial Comments: Visual Physical Exam Vital signs reviewed General: Well-appearing, nontoxic, no acute distress. Head: Normocephalic, atraumatic Eyes: PERRLA, EOMI ENT: Airway patent Chest: Nonlabored breathing Skin: No visual rash, normal skin tone Neuro: Alert and oriented 3 Musculoskeletal: No gross abnormalities (Ирина Irby) General: Appears in no acute distress. HEAD: Normal with no signs of head trauma. EYES: PERRLA, EOMI, conjunctiva normal, no discharge. ENT: Hearing grossly intact, normal oropharynx. RESPIRATORY: Clear breath sounds bilaterally. No wheezes, rales, or rhonchi. No significant respiratory distress. Pulse ox is 96% on room air. C/V: Regular rate and rhythm. S1 and S2 auscultated, peripheral pulses 2+ and intact throughout ABD: Abd is soft, nontender, nondistended EXT: Normal range of motion, no obvious deformity SKIN: No rashes or lesions observed on exposed skin. NEURO: Alert and oriented x 4. (Will Tripathi) Course Vital Signs 12/23/23 12/23/23 17:00 21:57 Temperature 98 F 97.9 F Pulse Rate 60 88 Respiratory 18 20 Rate Blood Pressure 105/66 98/66 O2 Sat by Pulse 96 96 Oximetry Medical Decision Making <Ирина Irby - Last Filed: 12/23/23 17:18> - Lab Data Result diagrams: 12/23/23 17:20 12/23/23 17:20 - EKG Data -: EKG Interpreted by Me <Will Tripathi - Last Filed: 12/23/23 22:52> - Medical Decision Making I performed the quick note portion of the exam. Electronically signed by Ирина Irby PA-C (Ирина Irby) Was pt. sent in by a medical professional or institution (LORNA Torres, RETAIL EVENT COORDINATOR, urgent care, hospital, or group home...) When possible be specific @ -No Did you speak to anyone other than the patient for history (EMS, parent, family, police, friend...)? What history was obtained from this source @ -No Did you review nursing and triage notes (agree or disagree)? Why? @ -I reviewed and agree with nursing and triage notes Were old charts reviewed (outside hosp., previous admission, EMS record, old EKG, old radiological studies, urgent care reports/EKG's, group home records)? Report findings @ -Old charts reviewed Differential Diagnosis (chest pain, altered mental status, abdominal pain women, abdominal pain men, vaginal bleeding, weakness, fever, dyspnea, syncope, headache, dizziness, GI bleed, back pain, seizure, CVA, palpatations, mental health, musculoskeletal)? @ -Differential Dyspnea: Coronary syndrome, arrhythmia, tamponade, asthma, COPD, pulmonary embolism, pneumonia, pneumothorax, pulmonary effusion, anaphylaxis, diabetic ketoacidosis, flailed chest, pulmonary contusion, diaphragmatic rupture, anemia, neuromuscular, this is not meant to be an all-inclusive list. EKG interpreted by me (3pts min.). @ -As above X-rays interpreted by me (1pt min.). @ -Chest x-ray reveals early right-sided pneumonia CT interpreted by me (1pt min.). @ -None done U/S interpreted by me (1pt. min.). @ -None done What testing was considered but not performed or refused? (CT, X-rays, U/S, labs)? Why? @ -None What meds were considered but not given or refused? Why? @ -None Did you discuss the management of the patient with other professionals (professionals i.e. , PA, RETAIL EVENT COORDINATOR, lab, RT, psych nurse, social media manager, financial assistance advisor, teacher, technology officer, showcase maker)? Give summary @ -No Was smoking cessation discussed for >3mins.? @ -No Was critical care preformed (if so, how long)? @ -No Were there social determinants of health that impacted care today? How? (Homelessness, low income, unemployed, alcoholism, drug addiction, transportation, low edu. Level, literacy, decrease access to med. care, half-way, rehab)? @ -No Was there de-escalation of care discussed even if they declined (Discuss DNR or withdrawal of care, Hospice)? DNR status @ -No What co-morbidities impacted this encounter? (DM, HTN, Smoking, COPD, CAD, Cancer, CVA, ARF, Chemo, Hep., AIDS, mental health diagnosis, sleep apnea, morbid obesity)? @ -None Was patient admitted / discharged? Hospital course, mention meds given and route, prescriptions, significant lab abnormalities, going to OR and other pertinent info. @ -Patient originally worked up as a quick note. I evaluated the patient in [facility]. Vital signs within acceptable limits. No respiratory distress. Minimally elevated at 2.1. Patient is tolerating oral intake and I recommended continuing drinking. Labs are remarkable for mild leukocytosis of 15 likely secondary to the pneumonia on chest x-ray as well as being on steroids. I discussed the results with the patient. We agree patient does not require admission at this time. He was in agreement this plan. Vital signs remain within acceptable [place] its. He will be started on Levaquin. He already is on steroids as well as breathing treatments at home. He will be discharged home at this time. I will provide the patient with a prescription for Levaquin. I instructed the patient to follow up with their PCP in the next 1-3 days. I explained that the patient should return to the emergency department if they experience any worsening symptoms. Strict return precautions were discussed with the patient. The patient expressed understanding of these instructions. I answered all questions that the patient had. The patient was discharged home in good condition with their prescriptions and follow up information. Undiagnosed new problem with uncertain prognosis? Evaluation relatively unremarkable. Lactic acid @ -No Drug Therapy requiring intensive monitoring for toxicity (Heparin, Nitro, Insulin, Cardizem)? @ -No Were any procedures done? @ -No Diagnosis/symptom? @ -Pneumonia, chronic dyspnea Acute, or Chronic, or Acute on Chronic? @ -Acute Uncomplicated (without systemic symptoms) or Complicated (systemic symptoms)? @ -Complicated Side effects of treatment? @ -No Exacerbation, Progression, or Severe Exacerbation? @ -No Poses a threat to life or bodily function? How? (Chest pain, [place], [place], pneumonia, PE, COPD, DKA, ARF, appy, cholecystitis, CVA, Diverticulitis, Homicidal, Suicidal, threat to staff... and all critical care pts) @ -Unlikely (Will Tripathi) - Lab Data Lab Results 12/23/23 12/23/23 12/23/23 Range/Units 17:20 17:20 17:20 WBC 15.1 H (3.8-10.6) k/uL RBC 5.50 (4.30-5.90) m/uL Hgb 14.8 (13.0-17.5) gm/dL Hct 46.5 (39.0-53.0) % MCV 84.5 (80.0-100.0) fL MCH 26.8 (25.0-35.0) pg MCHC 31.7 (31.0-37.0) g/dL RDW 14.4 (11.5-15.5) % Plt Count 281 (150-450) k/uL MPV 7.8 Neutrophils % 86 % Lymphocytes % 8 % Monocytes % 4 % Eosinophils % 1 % Basophils % 0 % Neutrophils # 13.1 H (1.3-7.7) k/uL Lymphocytes # 1.2 (1.0-4.8) k/uL Monocytes # 0.6 (0-1.0) k/uL Eosinophils # 0.1 (0-0.7) k/uL Basophils # 0.1 (0-0.2) k/uL PT 9.7 L (10.0-12.5) sec INR 0.9 (<1.2) APTT 20.9 L (22.0-30.0) sec Sodium 135 L (137-145) mmol/L Potassium 4.9 (3.5-5.1) mmol/L Chloride 98 (98-107) mmol/L Carbon Dioxide 30 (22-30) mmol/L Anion Gap 7 mmol/L BUN 30 H (9-20) mg/dL Creatinine 0.73 (0.66-1.25) mg/dL Est GFR (CKD-EPI)AfAm >90 (>60 ml/min/1.73 sqM) Est GFR (CKD-EPI)NonAf >90 (>60 ml/min/1.73 sqM) Glucose 152 H (74-99) mg/dL Lactic Ac Sepsis Rflx Plasma Lactic Acid Dionicio (0.7-2.0) mmol/L Calcium 9.4 (8.4-10.2) mg/dL Total Bilirubin 0.5 (0.2-1.3) mg/dL AST 29 (17-59) U/L ALT 21 (4-49) U/L Alkaline Phosphatase 85 (38-126) U/L Troponin I (0.000-0.034) ng/mL Total Protein 6.1 L (6.3-8.2) g/dL Albumin 3.9 (3.5-5.0) g/dL 12/23/23 12/23/23 12/23/23 Range/Units 17:20 17:20 18:35 WBC (3.8-10.6) k/uL RBC (4.30-5.90) m/uL Hgb (13.0-17.5) gm/dL Hct (39.0-53.0) % MCV (80.0-100.0) fL MCH (25.0-35.0) pg MCHC (31.0-37.0) g/dL RDW (11.5-15.5) % Plt Count (150-450) k/uL MPV Neutrophils % % Lymphocytes % % Monocytes % % Eosinophils % % Basophils % % Neutrophils # (1.3-7.7) k/uL Lymphocytes # (1.0-4.8) k/uL Monocytes # (0-1.0) k/uL Eosinophils # (0-0.7) k/uL Basophils # (0-0.2) k/uL PT (10.0-12.5) sec INR (<1.2) APTT (22.0-30.0) sec Sodium (137-145) mmol/L Potassium (3.5-5.1) mmol/L Chloride (98-107) mmol/L Carbon Dioxide (22-30) mmol/L Anion Gap mmol/L BUN (9-20) mg/dL Creatinine (0.66-1.25) mg/dL Est GFR (CKD-EPI)AfAm (>60 ml/min/1.73 sqM) Est GFR (CKD-EPI)NonAf (>60 ml/min/1.73 sqM) Glucose (74-99) mg/dL Lactic Ac Sepsis Rflx Y Plasma Lactic Acid Dionicio 2.1 H* (0.7-2.0) mmol/L Calcium (8.4-10.2) mg/dL Total Bilirubin (0.2-1.3) mg/dL AST (17-59) U/L ALT (4-49) U/L Alkaline Phosphatase (38-126) U/L Troponin I <0.012 (0.000-0.034) ng/mL Total Protein (6.3-8.2) g/dL Albumin (3.5-5.0) g/dL 12/23/23 Range/Units 20:59 WBC (3.8-10.6) k/uL RBC (4.30-5.90) m/uL Hgb (13.0-17.5) gm/dL Hct (39.0-53.0) % MCV (80.0-100.0) fL MCH (25.0-35.0) pg MCHC (31.0-37.0) g/dL RDW (11.5-15.5) % Plt Count (150-450) k/uL MPV Neutrophils % % Lymphocytes % % Monocytes % % Eosinophils % % Basophils % % Neutrophils # (1.3-7.7) k/uL Lymphocytes # (1.0-4.8) k/uL Monocytes # (0-1.0) k/uL Eosinophils # (0-0.7) k/uL Basophils # (0-0.2) k/uL PT (10.0-12.5) sec INR (<1.2) APTT (22.0-30.0) sec Sodium (137-145) mmol/L Potassium (3.5-5.1) mmol/L Chloride (98-107) mmol/L Carbon Dioxide (22-30) mmol/L Anion Gap mmol/L BUN (9-20) mg/dL Creatinine (0.66-1.25) mg/dL Est GFR (CKD-EPI)AfAm (>60 ml/min/1.73 sqM) Est GFR (CKD-EPI)NonAf (>60 ml/min/1.73 sqM) Glucose (74-99) mg/dL Lactic Ac Sepsis Rflx Plasma Lactic Acid Dionicio 2.1 H* (0.7-2.0) mmol/L Calcium (8.4-10.2) mg/dL Total Bilirubin (0.2-1.3) mg/dL AST (17-59) U/L ALT (4-49) U/L Alkaline Phosphatase (38-126) U/L Troponin I (0.000-0.034) ng/mL Total Protein (6.3-8.2) g/dL Albumin (3.5-5.0) g/dL - EKG Data EKG Comments: 12-lead Electrocardiogram Interpretation Note EKG was reviewed and interpreted by myself. 12-lead ECG performed at 1720 is interpreted by me as revealing sinus tachycardia at a rate of 113 beats per minute. Metz is normal. OR interval is 156 ms, QRS duration is 119 ms, QTc is 390 ms.. There were no ST or T wave abnormalities to suggest myocardial ischemia or injury. R wave progression across the precordium was satisfactory. By my interpretation this EKG is non-diagnostic for acute ischemia. (Will Tripathi) Disposition <Ирина Irby - Last Filed: 12/23/23 17:18> Is patient prescribed a controlled substance at d/c from ED?: No Time of Disposition: 21:45 <Will Tripathi - Last Filed: 12/23/23 22:52> Clinical Impression: Pneumonia Disposition: HOME SELF-CARE Condition: Fair Instructions (If sedation given, give patient instructions): Community Acquired Pneumonia (ED) Prescriptions: Levofloxacin [Levaquin] 750 mg PO DAILY 7 Days #7 tab Referrals: Alfredo Hope DO [Primary Care Provider] - 1-2 days
--- NOTE | 2023-12-23 17:20 | XR ---
EXAMINATION TYPE: XR chest 2V DATE OF EXAM: 12/23/2023 COMPARISON: 12/18/2023 HISTORY: 58 year-old male shortness of breath, difficulty breathing TECHNIQUE: PA and lateral views FINDINGS: Heart normal size. Aorta and pulmonary vascularity within normal limits. Strandy atelectasis left bas e. More patchy right basilar opacity. No pleural effusion. IMPRESSION: Either atelectasis or developing pneumonia at the right base. Correlate with symptoms.
[2023-12-23 17:44] LABS: Basophils # (A) 0.1 k/uL (0-0.2); Basophils % (A) 0 %; Eosinophils # (A) 0.1 k/uL (0-0.7); Eosinophils % (A) 1 %; HCT 46.5 % (39.0-53.0); HGB 14.8 gm/dL (13.0-17.5); Lymphocytes # (A) 1.2 k/uL (1.0-4.8); Lymphocytes % (A) 8 %; MCH 26.8 pg (25.0-35.0); MCHC 31.7 g/dL (31.0-37.0); MCV 84.5 fL (80.0-100.0); Mean Platelet Volume 7.8; Monocytes # (A) 0.6 k/uL (0-1.0); Monocytes % (A) 4 %; Neutrophils # (A) 13.1 k/uL (1.3-7.7); Neutrophils % (A) 86 %; Platelet Count 281 k/uL (150-450); RDW 14.4 % (11.5-15.5); WBC 15.1 k/uL (3.8-10.6)
[2023-12-23 18:01] LABS: INR 0.9 (<1.2); Prothrombin Time 9.7 sec (10.0-12.5)
[2023-12-23 18:10] LABS: ALT 21 U/L (4-49); AST 29 U/L (17-59); African American GFR (CKD) >90 (>60 ml/min/1.73 sqM); Albumin 3.9 g/dL (3.5-5.0); Alkaline Phosphatase 85 U/L (38-126); Anion Gap 7 mmol/L; Blood Urea Nitrogen 30 mg/dL (9-20); Calcium 9.4 mg/dL (8.4-10.2); Carbon Dioxide 30 mmol/L (22-30); Chloride 98 mmol/L (98-107); Glucose 152 mg/dL (74-99); Non-African American GFR(CKD) >90 (>60 ml/min/1.73 sqM); Sodium 135 mmol/L (137-145); Total Bilirubin 0.5 mg/dL (0.2-1.3); Total Protein 6.1 g/dL (6.3-8.2)
[2023-12-23 18:33] LABS: Potassium 4.9 mmol/L (3.5-5.1)
[2023-12-23 18:36] LABS: Partial Thromboplastin Time 20.9 sec (22.0-30.0)
[2023-12-23] MEDS: LEVOFLOXACIN 750 MG TAB PO STA (22:04)
[2023-12-23 22:06] VITALS: BP 98/66; PULSE 88; RESP 20; TEMP 97.9
== END 2023-12-23 22:21 | disposition home or self-care (01) ==
LOC: EC 16:55
DX: J18.9 Pneumonia, unspecified organism (principal); J44.89 Other specified chronic obstructive pulmonary disease; G47.33 Obstructive sleep apnea (adult) (pediatric); E66.9 Obesity, unspecified; M19.90 Unspecified osteoarthritis, unspecified site; Z79.899 Other long term (current) drug therapy; Z87.891 Personal history of nicotine dependence; Z88.8 Allergy status to other drugs, medicaments and biological substances; Z68.44 Body mass index [BMI] 60.0-69.9, adult
CPT/HCPCS: 36415; 71046; 80053; 83605; 84484; 85025; 85610; 85730; 93005; 99285

== ENCOUNTER 2024-01-02 17:44 | Emergency (ER) | payer MEDICARE ==
--- NOTE | 2024-01-02 18:13 | ED ---
Arrhythmia/Palpitations HPI - General Chief Complaint: Arrhythmia/Palpitations Stated Complaint: SOB Time Seen by Provider: 01/02/24 17:54 Source: patient Mode of arrival: wheelchair Limitations: physical limitation - History of Present Illness Initial Comments: 58-year-old male presenting with chief complaint of palpitations. Patient was recently discharged from [facility], he was newly diagnosed with A-fib and started on Eliquis. States that today he started having symptoms similar to how he was feeling when he was diagnosed with A-fib. He was having palpitations as well as feeling short of breath. He does admit to some chest pain as well. Admits to cough. No fever, nausea, vomiting, abdominal pain. - Related Data Home Medications Medication Instructions Recorded Confirmed Spironolactone [Aldactone] 25 mg PO DAILY 12/25/20 12/18/23 Meloxicam 7.5 mg PO DAILY PRN 08/05/21 12/18/23 Umeclidinium [place] [Incruse 1 puff INHALATION RT-DAILY 12/18/23 12/18/23 Ellipta] Previous Rx's Medication Instructions Recorded Albuterol Inhaler [Ventolin Hfa 1 - 2 puff INHALATION Q6H PRN #1 06/22/23 Inhaler] each Budesonide-Formot 160-4.5 Mcg 2 puff INHALATION RT-BID #1 each 12/21/23 [Symbicort 160-4.5 Mcg Inhaler] predniSONE 10 mg PO DAILY #30 tab 12/21/23 Levofloxacin [Levaquin] 750 mg PO DAILY 7 Days #7 tab 12/23/23 Allergies Allergy/AdvReac Type Severity Reaction Status Date / Time isosorbide [From Imdur] AdvReac headache & Verified 01/02/24 17:49 blurred vision metoprolol [From Toprol XL] AdvReac headache & Verified 01/02/24 17:49 blurred vision Review of Systems ROS Statement: Those systems with pertinent positive or pertinent negative responses have been documented in the HPI. ROS Other: All systems not noted in ROS Statement are negative. Past Medical History Past Medical History: Asthma, COPD, GERD/Reflux, Osteoarthritis (OA), Sleep Apnea/CPAP/BIPAP Additional Past Medical History / Comment(s): JEANIE/unable to tolerate cpap, pneumonias, bronchitis, chronic lower extremity lymphedema/redness/scabs, arthritis in multiple joints/chronic pain/chronic back pain History of Any Multi-Drug Resistant Organisms: None Reported Past Surgical History: Adenoidectomy, Appendectomy, Orthopedic Surgery, Tonsillectomy Additional Past Surgical History / Comment(s): Bilateral knee arthroscopy, UVPPP, carpal tunnel surgery, right shoulder surgery, colonoscopy/benign polyp ectomy. Past Anesthesia/Blood Transfusion Reactions: No Reported Reaction Past Psychological History: No Psychological Hx Reported Smoking Status: Former smoker Past Alcohol Use History: None Reported Past Drug Use History: None Reported - Past Family History Father History Unknown: Yes Family Medical History: Cancer Additional Family Medical History / Comment(s): . Mother History Unknown: Yes Family Medical History: Deep Vein Thrombosis (DVT) General Exam Limitations: physical limitation General appearance: alert, in no apparent distress Head exam: Present: atraumatic, normocephalic Eye exam: Present: normal appearance Neck exam: Present: normal inspection Respiratory exam: Present: normal lung sounds bilaterally. Absent: respiratory distress, wheezes, rales, rhonchi, stridor Cardiovascular Exam: Present: regular rate, normal rhythm, normal heart sounds. Absent: systolic murmur, diastolic murmur, rubs, gallop, clicks Neurological exam: Present: alert, oriented X3 Psychiatric exam: Present: normal affect, normal mood Skin exam: Present: warm, dry Course Vital Signs 01/02/24 01/02/24 01/02/24 17:48 19:02 19:59 Temperature 98.1 F Pulse Rate 89 78 80 Respiratory 24 20 16 Rate Blood Pressure 133/83 113/73 113/73 O2 Sat by Pulse 94 L 97 98 Oximetry 01/02/24 21:00 Temperature 98.7 F Pulse Rate 97 Respiratory 16 Rate Blood Pressure 102/47 O2 Sat by Pulse 97 Oximetry EKG Findings - EKG Comments: EKG Findings:: Sinus rhythm ventricular rate 90. NE interval 158. QRS 119. QT 340. QTc 388. No acute changes from previous EKG. Medical Decision Making - Medical Decision Making Was pt. sent in by a medical professional or institution (, PA, VOTING MACHINE REPAIRER, urgent care, hospital, or usp...) When possible be specific @ -No Did you speak to anyone other than the patient for history (EMS, parent, family, police, friend...)? What history was obtained from this source @ -No Did you review nursing and triage notes (agree or disagree)? Why? @ -I reviewed and agree with nursing and triage notes Were old charts reviewed (outside hosp., previous admission, EMS record, old EKG, old radiological studies, urgent care reports/EKG's, usp records)? Report findings @ -I reviewed the discharge summary from [facility]. Patient was discharged on the after being recently diagnosed with A-fib. He was started on Eliquis and metoprolol. Differential Diagnosis (chest pain, altered mental status, abdominal pain women, abdominal pain men, vaginal bleeding, weakness, fever, dyspnea, syncope, headache, dizziness, GI bleed, back pain, seizure, CVA, palpatations, mental health, musculoskeletal)? @ -Differential Palpitations Ventricular arrhythmias, atrial arrhythmias, myocardial infarction, anemia, thyrotoxicosis, electrolyte imbalance, hypokalemia, pulmonary embolism, pulmonary disease, drugs, alcohol, anxiety, stress.... This is not meant to be an all-inclusive list. EKG interpreted by me (3pts min.). @ -As above X-rays interpreted by me (1pt min.). @ -Chest x-ray shows low lung volumes with a generalized hazy appearance which could represent atelectasis versus pulmonary edema correlate with serum BNP CT interpreted by me (1pt min.). @ -None done U/S interpreted by me (1pt. min.). @ -None done What testing was considered but not performed or refused? (CT, X-rays, U/S, labs)? Why? @ -None What meds were considered but not given or refused? Why? @ -None Did you discuss the management of the patient with other professionals (professionals i.e. , PA, VOTING MACHINE REPAIRER, lab, RT, psych nurse, administrator social welfare, and taxi instructor bus trolley, teacher, project control officer, case management coordinator)? Give summary @ -No Was smoking cessation discussed for >3mins.? @ -No Was critical care preformed (if so, how long)? @ -No Were there social determinants of health that impacted care today? How? (Homelessness, low income, unemployed, alcoholism, drug addiction, transportation, low edu. Level, literacy, decrease access to med. care, usp, rehab)? @ -No Was there de-escalation of care discussed even if they declined (Discuss DNR or withdrawal of care, Hospice)? DNR status @ -No What co-morbidities impacted this encounter? (DM, HTN, Smoking, COPD, CAD, Cancer, CVA, ARF, Chemo, Hep., AIDS, mental health diagnosis, sleep apnea, morbid obesity)? @ -A-fib Was patient admitted / discharged? Hospital course, mention meds given and route, prescriptions, significant lab abnormalities, going to OR and other pertinent info. @ -58-year-old male presenting with chief complaint of palpitations. He was just discharged from [facility] after being recently diagnosed with A- fib. He was started on metoprolol and Eliquis. He states that he was having similar symptoms today as when he had his first episode of A-fib. History and physical exam are conducted. EKG shows sinus rhythm. Negative troponin. Lab work requires no further action. Given that the patient was just evaluated by cardiology, he is stable for discharge home. Follow-up with PCP. Report back to ER with any new or worsening symptoms. Discussed return parameters and answered all questions. Patient conveyed verbal understanding and agreed to the plan. I discussed this case in detail with my attending Dr. Dawkins Undiagnosed new problem with uncertain prognosis? @ -No Drug Therapy requiring intensive monitoring for toxicity (Heparin, Nitro, Insulin, Cardizem)? @ -No Were any procedures done? @ -No Diagnosis/symptom? @ -Palpitations Acute, or Chronic, or Acute on Chronic? @ -Acute Uncomplicated (without systemic symptoms) or Complicated (systemic symptoms)? @ -Uncomplicated Side effects of treatment? @ -No Exacerbation, Progression, or Severe Exacerbation? @ -No Poses a threat to life or bodily function? How? (Chest pain, USA, MD, pneumonia, PE, COPD, DKA, ARF, appy, cholecystitis, CVA, Diverticulitis, Homicidal, Suicidal, threat to staff... and all critical care pts) @ -Unlikely - Lab Data Result diagrams: 01/02/24 18:29 01/02/24 18:29 Lab Results 01/02/24 01/02/24 01/02/24 Range/Units 18:29 18:29 18: WBC 10.3 (3.8-10.6) k/uL RBC 5.37 (4.30-5.90) m/uL Hgb 14.7 (13.0-17.5) gm/dL Hct 44.5 (39.0-53.0) % MCV 82.9 (80.0-100.0) fL MCH 27.4 (25.0-35.0) pg MCHC 33.1 (31.0-37.0) g/dL RDW 14.5 (11.5-15.5) % Plt Count 236 (150-450) k/uL MPV 7.9 Neutrophils % 77 % Lymphocytes % 14 % Monocytes % 6 % Eosinophils % 1 % Basophils % 0 % Neutrophils # 7.9 H (1.3-7.7) k/uL Lymphocytes # 1.5 (1.0-4.8) k/uL Monocytes # 0.6 (0-1.0) k/uL Eosinophils # 0.1 (0-0.7) k/uL Basophils # 0.0 (0-0.2) k/uL PT 9.9 L (10.0-12.5) sec INR 0.9 (<1.2) APTT 22.7 (22.0-30.0) sec Sodium 137 (137-145) mmol/L Potassium 4.4 (3.5-5.1) mmol/L Chloride 104 (98-107) mmol/L Carbon Dioxide 29 (22-30) mmol/L Anion Gap 4 mmol/L BUN 23 H (9-20) mg/dL Creatinine 0.59 L (0.66-1.25) mg/dL Est GFR (CKD-EPI)AfAm >90 (>60 ml/min/1.73 sqM) Est GFR (CKD-EPI)NonAf >90 (>60 ml/min/1.73 sqM) Glucose 177 H (74-99) mg/dL Calcium 9.7 (8.4-10.2) mg/dL Magnesium 2.0 (1.6-2.3) mg/dL Total Bilirubin 0.4 (0.2-1.3) mg/dL AST 25 (17-59) U/L ALT 33 (4-49) U/L Alkaline Phosphatase 65 (38-126) U/L Troponin I (0.000-0.034) ng/mL NT-Pro-B Natriuret Pep pg/mL Total Protein 5.7 L (6.3-8.2) g/dL Albumin 3.5 (3.5-5.0) g/dL 01/02/24 01/02/24 Range/Units 18:29 19:59 WBC (3.8-10.6) k/uL RBC (4.30-5.90) m/uL Hgb (13.0-17.5) gm/dL Hct (39.0-53.0) % MCV (80.0-100.0) fL MCH (25.0-35.0) pg MCHC (31.0-37.0) g/dL RDW (11.5-15.5) % Plt Count (150-450) k/uL MPV Neutrophils % % Lymphocytes % % Monocytes % % Eosinophils % % Basophils % % Neutrophils # (1.3-7.7) k/uL Lymphocytes # (1.0-4.8) k/uL Monocytes # (0-1.0) k/uL Eosinophils # (0-0.7) k/uL Basophils # (0-0.2) k/uL PT (10.0-12.5) sec INR (<1.2) APTT (22.0-30.0) sec Sodium (137-145) mmol/L Potassium (3.5-5.1) mmol/L Chloride (98-107) mmol/L Carbon Dioxide (22-30) mmol/L Anion Gap mmol/L BUN (9-20) mg/dL Creatinine (0.66-1.25) mg/dL Est GFR (CKD-EPI)AfAm (>60 ml/min/1.73 sqM) Est GFR (CKD-EPI)NonAf (>60 ml/min/1.73 sqM) Glucose (74-99) mg/dL Calcium (8.4-10.2) mg/dL Magnesium (1.6-2.3) mg/dL Total Bilirubin (0.2-1.3) mg/dL AST (17-59) U/L ALT (4-49) U/L Alkaline Phosphatase (38-126) U/L Troponin I <0.012 (0.000-0.034) ng/mL NT-Pro-B Natriuret Pep 191 pg/mL Total Protein (6.3-8.2) g/dL Albumin (3.5-5.0) g/dL Disposition Clinical Impression: Palpitations Disposition: HOME SELF-CARE Condition: Good Instructions (If sedation given, give patient instructions): Heart Palpitations (ED) Additional Instructions: Follow-up with your PCP and lay ups assembler. Report back to ER with any new or worsening symptoms. Is patient prescribed a controlled substance at d/c from ED?: No Referrals: Alfredo Hope DO [Primary Care Provider] - 1-2 days Patriica Lowry MD [STAFF PHYSICIAN] - 1-2 days Time of Disposition: 20:52
[2024-01-02] MEDS: SODIUM CHLORIDE 0.9% 500 ML 500 ML IV STA (19:01)
[2024-01-02 19:15] LABS: Basophils % (A) 0 %; Eosinophils # (A) 0.1 k/uL (0-0.7); Eosinophils % (A) 1 %; HCT 44.5 % (39.0-53.0); HGB 14.7 gm/dL (13.0-17.5); Lymphocytes # (A) 1.5 k/uL (1.0-4.8); Lymphocytes % (A) 14 %; MCH 27.4 pg (25.0-35.0); MCHC 33.1 g/dL (31.0-37.0); MCV 82.9 fL (80.0-100.0); Mean Platelet Volume 7.9; Monocytes # (A) 0.6 k/uL (0-1.0); Monocytes % (A) 6 %; Neutrophils # (A) 7.9 k/uL (1.3-7.7); Neutrophils % (A) 77 %; Platelet Count 236 k/uL (150-450); RBC 5.37 m/uL (4.30-5.90); RDW 14.5 % (11.5-15.5); WBC 10.3 k/uL (3.8-10.6)
[2024-01-02 19:18] LABS: ALT 33 U/L (4-49); AST 25 U/L (17-59); African American GFR (CKD) >90 (>60 ml/min/1.73 sqM); Albumin 3.5 g/dL (3.5-5.0); Alkaline Phosphatase 65 U/L (38-126); Anion Gap 4 mmol/L; Blood Urea Nitrogen 23 mg/dL (9-20); Calcium 9.7 mg/dL (8.4-10.2); Carbon Dioxide 29 mmol/L (22-30); Chloride 104 mmol/L (98-107); Glucose 177 mg/dL (74-99); Non-African American GFR(CKD) >90 (>60 ml/min/1.73 sqM); Potassium 4.4 mmol/L (3.5-5.1); Sodium 137 mmol/L (137-145); Total Bilirubin 0.4 mg/dL (0.2-1.3); Total Protein 5.7 g/dL (6.3-8.2)
[2024-01-02 19:31] LABS: INR 0.9 (<1.2); Prothrombin Time 9.9 sec (10.0-12.5)
[2024-01-02 19:32] LABS: Partial Thromboplastin Time 22.7 sec (22.0-30.0)
--- NOTE | 2024-01-02 19:32 | XR ---
EXAMINATION TYPE: XR chest 2V DATE OF EXAM: 01/02/2024 7:19 PM CLINICAL INDICATION:Male, 58 years old with history of dysrhythmia; [facility] COMPARISON: Chest radiographs from 12/23/2023. TECHNIQUE: XR chest 2V Frontal and lateral views of the chest. FINDINGS: Lungs/Pleura: There is no evidence of pleural effusion, focal consolidation, or pneumothorax. Pulmonary vascularity: Unremarkable. Heart/mediastinum: Cardiomediastinal silhouette is unremarkable. Musculoskeletal: No acute osseous pathology. IMPRESSION: Low lung volumes with a generalized hazy appearance which could represent atelectasis versus pulmonar y edema correlate with serum BNP.
[2024-01-02 20:25] VITALS: RESP 16
[2024-01-02 21:26] VITALS: BP 102/47; PULSE 97; TEMP 98.7
== END 2024-01-02 21:05 | disposition home or self-care (01) ==
LOC: EC 17:44
DX: R00.2 Palpitations (principal); J44.89 Other specified chronic obstructive pulmonary disease; G47.30 Sleep apnea, unspecified; M19.90 Unspecified osteoarthritis, unspecified site; Z79.899 Other long term (current) drug therapy; Z87.891 Personal history of nicotine dependence; Z88.6 Allergy status to analgesic agent; Z88.8 Allergy status to other drugs, medicaments and biological substances
CPT/HCPCS: 36415; 71046; 80053; 83735; 83880; 84484; 85025; 85610; 85730; 93005; 99285

== ENCOUNTER 2024-01-07 03:58 | Emergency (ER) | payer MEDICARE ==
[2024-01-07 04:29] VITALS: TEMP 98
[2024-01-07 04:52] LABS: Basophils % (A) 0 %; Eosinophils # (A) 0.1 k/uL (0-0.7); Eosinophils % (A) 2 %; HCT 44.2 % (39.0-53.0); HGB 14.3 gm/dL (13.0-17.5); Lymphocytes # (A) 0.5 k/uL (1.0-4.8); Lymphocytes % (A) 8 %; MCH 27.5 pg (25.0-35.0); MCHC 32.4 g/dL (31.0-37.0); Mean Platelet Volume 7.5; Monocytes # (A) 0.4 k/uL (0-1.0); Monocytes % (A) 7 %; Neutrophils # (A) 5.4 k/uL (1.3-7.7); Neutrophils % (A) 81 %; Platelet Count 146 k/uL (150-450); RDW 14.8 % (11.5-15.5); WBC 6.7 k/uL (3.8-10.6)
--- NOTE | 2024-01-07 04:53 | ED ---
General Adult HPI - General Chief complaint: Shortness of Breath Stated complaint: SOB chest pain headache Time Seen by Provider: 01/07/24 04:26 Source: patient Mode of arrival: wheelchair Limitations: no limitations - History of Present Illness Initial comments: Dictation was produced using [employer] dictation software. please excuse any grammatical, word or spelling errors. Chief Complaint: 58-year-old male well-known to emergency department presents to the ER for chest pain shortness of breath History of Present Illness: 58-year-old obese male presents emergency department for chest pain and shortness of breath. Patient takes anticoagulation me dication is just diagnosed with A-fib recently. He was seen in the emergency department recently for the same complaint. Patient has undergone multiple workups all were negative. Patient complaining of chest pain, shortness of breath, sore throat, runny nose, abdominal pain. Patient also complaining of reported constitutional symptoms. The ROS documented in this emergency department record has been reviewed and confirmed by me. Those systems with pertinent positive or negative responses h ave been documented in the HPI. All other systems are other negative and/or noncontributory. - Related Data Home Medications Medication Instructions Recorded Confirmed Spironolactone [Aldactone] 25 mg PO DAILY 12/25/20 12/18/23 Meloxicam 7.5 mg PO DAILY PRN 08/05/21 12/18/23 Umeclidinium [place] [Incruse 1 puff INHALATION RT-DAILY 12/18/23 12/18/23 Ellipta] Previous Rx's Medication Instructions Recorded Albuterol Inhaler [Ventolin Hfa 1 - 2 puff INHALATION Q6H PRN #1 06/22/23 Inhaler] each Budesonide-Formot 160-4.5 Mcg 2 puff INHALATION RT-BID #1 each 12/21/23 [Symbicort 160-4.5 Mcg Inhaler] predniSONE 10 mg PO DAILY #30 tab 12/21/23 Levofloxacin [Levaquin] 750 mg PO DAILY 7 Days #7 tab 12/23/23 Allergies Allergy/AdvReac Type Severity Reaction Status Date / Time isosorbide [From Imdur] AdvReac headache & Verified 01/07/24 04:18 blurred vision metoprolol [From Toprol XL] AdvReac headache & Verified 01/07/24 04:18 blurred vision Review of Systems ROS Statement: Those systems with pertinent positive or pertinent negative responses have been documented in the HPI. ROS Other: All systems not noted in ROS Statement are negative. Past Medical History Past Medical History: Asthma, COPD, GERD/Reflux, Osteoarthritis (OA), Sleep Apnea/CPAP/BIPAP Additional Past Medical History / Comment(s): JEANIE/unable to tolerate cpap, pneumonias, bronchitis, chronic lower extremity lymphedema/redness/scabs, arthritis in multiple joints/chronic pain/chronic back pain History of Any Multi-Drug Resistant Organisms: None Reported Past Surgical History: Adenoidectomy, Appendectomy, Orthopedic Surgery, Tonsillectomy Additional Past Surgical History / Comment(s): Bilateral knee arthroscopy, UVPPP, carpal tunnel surgery, right shoulder surgery, colonoscopy/benign polypectomy. Past Anesthesia/Blood Transfusion Reactions: No Reported Reaction Past Psychological History: No Psychological Hx Reported Smoking Status: Former smoker Past Alcohol Use History: None Reported Past Drug Use History: None Reported - Past Family History Father History Unknown: Yes Family Medical History: Cancer Additional Family Medical History / Comment(s): . Mother History Unknown: Yes Family Medical History: Deep Vein Thrombosis (DVT) General Exam - General Exam Comments Initial Comments: PHYSICAL EXAM: General Impression: Alert and oriented x3, not in acute distress HEENT: Normocephalic atraumatic, extra-ocular movements intact, pupils equal and reactive to light bilaterally, mucous membranes moist. Cardiovascular: Heart regular rate and rhythm Chest: Able to complete full sentences, no retractions, no tachypnea Abdomen: abdomen soft, non-tender, non-distended, no organomegaly Musculoskeletal: Pulses present and equal in all extremities, no peripheral edema Motor: no focal deficits noted Neurological: CN II-XII grossly intact, no focal motor or sensory deficits noted Skin: Intact with no visualized rashes Psych: Normal affect and mood Limitations: no limitations Course Vital Signs 01/07/24 01/07/24 01/07/24 04:19 04:28 06:17 Temperature 98.0 F Pulse Rate 108 H 94 Respiratory 22 22 18 Rate Blood Pressure 106/72 123/54 O2 Sat by Pulse 97 98 Oximetry EKG Findings - EKG Comments: EKG Findings:: My EKG interpretation: Ventricular rate 103, sinus tachycardia,. 150, cures 114, QTc 376. No [place] prolongation, no QTC prolongation, no ST or T- wave changes notedOverall, this EKG is unremarkable Medical Decision Making - Medical Decision Making Was pt. sent in by a medical professional or institution (, LORNA, CHILD DEVELOPMENT TEACHER, urgent care, hospital, or half-way...) When possible be specific @ -No Did you speak to anyone other than the patient for history (EMS, parent, family, police, friend...)? What history was obtained from this source @ -No Did you review nursing and triage notes (agree or disagree)? Why? @ -I reviewed and agree with nursing and triage notes Were old charts reviewed (outside hosp., previous admission, EMS record, old E KG, old radiological studies, urgent care reports/EKG's, half-way records)? Report findings @ -No old charts were reviewed Differential Diagnosis (chest pain, altered mental status, abdominal pain women, abdominal pain men, vaginal bleeding, musculoskeletal, weakness, fever, dyspnea, syncope, headache, dizziness, GI bleed, back pain, seizure, CVA, palpatations, mental health)? @ -Differential Dyspnea: Coronary syndrome, arrhythmia, tamponade, asthma, COPD, pulmonary embolism, pneumonia, pneumothorax, pulmonary effusion, anaphylaxis, diabetic ketoacidosis, flailed chest, pulmonary contusion, diaphragmatic rupture, anemia, neuromuscular, this is not meant to be an all-inclusive list. EKG interpreted by me (3pts min.). @ -See above X-rays interpreted by me (1pt min.). @ -Chest x-ray is unremarkable CT interpreted by me (1pt min.). @ -None done U/S interpreted by me (1pt. min.). @ -None done What testing was considered but not performed or refused? (CT, X-rays, U/S, labs)? Why? @ -None What meds were considered but not given or refused? Why? @ -None Did you discuss the management of the patient with other professionals (professionals i.e. LORNA Torres, CHILD DEVELOPMENT TEACHER, lab, RT, psych nurse, social contact worker, hr payroll coordinator, teacher, grant officer, caser up)? Give summary @ -No Was smoking cessation discussed for >3mins.? @ -No Was critical care preformed (if so, how long)? @ -No Were there social determinants of health that impacted care today? How? (Homelessness, low income, unemployed, alcoholism, drug addiction, transportation, low edu. Level, literacy, decrease access to med. care, assisted, rehab)? @ -No Was there de-escalation of care discussed even if they declined (Discuss DNR or withdrawal of care, Hospice)? DNR status @ -No What co-morbidities impacted this encounter? (DM, HTN, Smoking, COPD, CAD, Cancer, CVA, ARF, Chemo, Hep., AIDS, mental health diagnosis, sleep apnea, morbid obesity)? @ -None Was patient admitted / discharged? Hospital course, mention meds given and route, prescriptions, significant lab abnormalities, going to OR and other pertinent info. @ -58-year-old obese male with multiple comorbidities presents to the emergency department for chief complaint of dyspnea. He has history of asthma, COPD. He is on anticoagulation medications. Patient is well-known to emergency department for multiple visitations for chest pain and shortness of breath. Vital signs are stable. Patient no acute distress. Has clear lung sounds bilateral. Laboratory evaluation is unremarkable. BNP troponin is negative. Influenza A positive. Patient's been symptomatic for more than 5 days. Patient not hypoxic not dyspneic at the bedside. Patient be discharged advised follow- up with primary care doctor. Patient not a candidate for Tamiflu. Undiagnosed new problem with uncertain prognosis? @ -No Drug Therapy requiring intensive monitoring for toxicity (Heparin, Nitro, Insulin, Cardizem)? @ -No Were any procedures done? @ -No Diagnosis/symptom? Acute, or Chronic, or Acute on Chronic? Uncomplicated (without systemic symptoms) or Complicated (systemic symptoms)? @ -Influenza Side effects of treatment? @ -No Exacerbation, Progression, or Severe Exacerbation? @ -No Poses a threat to life or bodily function? How? (Chest pain, USA, [place], pneumonia, PE, COPD, DKA, ARF, appy, cholecystitis, CVA, Diverticulitis, Homicidal, Suicidal, threat to staff... and all critical care pts) @ -No - Lab Data Result diagrams: 01/07/24 04:43 01/07/24 04:43 Lab Results 01/07/24 01/07/24 01/07/24 Range/Units 04:41 04:43 04:43 WBC 6.7 (3.8-10.6) k/uL RBC 5.20 (4.30-5.90) m/uL Hgb 14.3 (13.0-17.5) gm/dL Hct 44.2 (39.0-53.0) % MCV 85.0 (80.0-100.0) fL MCH 27.5 (25.0-35.0) pg MCHC 32.4 (31.0-37.0) g/dL RDW 14.8 (11.5-15.5) % Plt Count 146 L (150-450) k/uL MPV 7.5 Neutrophils % 81 % Lymphocytes % 8 % Monocytes % 7 % Eosinophils % 2 % Basophils % 0 % Neutrophils # 5.4 (1.3-7.7) k/uL Lymphocytes # 0.5 L (1.0-4.8) k/uL Monocytes # 0.4 (0-1.0) k/uL Eosinophils # 0.1 (0-0.7) k/uL Basophils # 0.0 (0-0.2) k/uL PT 9.6 L (10.0-12.5) sec INR 0.8 (<1.2) APTT 24.8 (22.0-30.0) sec Sodium (137-145) mmol/L Potassium (3.5-5.1) mmol/L Chloride (98-107) mmol/L Carbon Dioxide (22-30) mmol/L Anion Gap mmol/L BUN (9-20) mg/dL Creatinine (0.66-1.25) mg/dL Est GFR (CKD-EPI)AfAm (>60 ml/min/1.73 sqM) Est GFR (CKD-EPI)NonAf (>60 ml/min/1.73 sqM) Glucose (74-99) mg/dL Calcium (8.4-10.2) mg/dL Troponin I (0.000-0.034) ng/mL NT-Pro-B Natriuret Pep pg/mL Influenza Type A (PCR) Detected A (Not Detectd) Influenza Type B (PCR) Not Detected (Not Detectd) RSV (PCR) Not Detected (Not Detectd) SARS-CoV-2 (PCR) Not Detected (Not Detectd) 01/07/24 01/07/24 Range/Units 04:43 04:43 WBC (3.8-10.6) k/uL RBC (4.30-5.90) m/uL Hgb (13.0-17.5) gm/dL Hct (39.0-53.0) % MCV (80.0-100.0) fL MCH (25.0-35.0) pg MCHC (31.0-37.0) g/dL RDW (11.5-15.5) % Plt Count (150-450) k/uL MPV Neutrophils % % Lymphocytes % % Monocytes % % Eosinophils % % Basophils % % Neutrophils # (1.3-7.7) k/uL Lymphocytes # (1.0-4.8) k/uL Monocytes # (0-1.0) k/uL Eosinophils # (0-0.7) k/uL Basophils # (0-0.2) k/uL PT (10.0-12.5) sec INR (<1.2) APTT (22.0-30.0) sec Sodium 136 L (137-145) mmol/L Potassium 5.1 (3.5-5.1) mmol/L Chloride 104 (98-107) mmol/L Carbon Dioxide 26 (22-30) mmol/L Anion Gap 6 mmol/L BUN 17 (9-20) mg/dL Creatinine 0.63 L (0.66-1.25) mg/dL Est GFR (CKD-EPI)AfAm >90 (>60 ml/min/1.73 sqM) Est GFR (CKD-EPI)NonAf >90 (>60 ml/min/1.73 sqM) Glucose 157 H (74-99) mg/dL Calcium 8.9 (8.4-10.2) mg/dL Troponin I <0.012 (0.000-0.034) ng/mL NT-Pro-B Natriuret Pep 257 pg/mL Influenza Type A (PCR) (Not Detectd) Influenza Type B (PCR) (Not Detectd) RSV (PCR) (Not Detectd) SARS-CoV-2 (PCR) (Not Detectd) Disposition Clinical Impression: Influenza Disposition: HOME SELF-CARE Condition: Good Instructions (If sedation given, give patient instructions): Influenza (ED) Is patient prescribed a controlled substance at d/c from ED?: No Referrals: Alfredo Hope DO [Primary Care Provider] - 1-2 days Time of Disposition: 06:31
[2024-01-07 05:01] LABS: African American GFR (CKD) >90 (>60 ml/min/1.73 sqM); Anion Gap 6 mmol/L; Blood Urea Nitrogen 17 mg/dL (9-20); Calcium 8.9 mg/dL (8.4-10.2); Carbon Dioxide 26 mmol/L (22-30); Chloride 104 mmol/L (98-107); Glucose 157 mg/dL (74-99); Non-African American GFR(CKD) >90 (>60 ml/min/1.73 sqM); Sodium 136 mmol/L (137-145)
[2024-01-07 05:07] LABS: Potassium 5.1 mmol/L (3.5-5.1)
[2024-01-07 05:09] LABS: NT-Pro-B-Type Natriuretic Pept 257 pg/mL
[2024-01-07 05:29] LABS: INR 0.8 (<1.2); Partial Thromboplastin Time 24.8 sec (22.0-30.0); Prothrombin Time 9.6 sec (10.0-12.5)
--- NOTE | 2024-01-07 05:47 | XR ---
EXAMINATION TYPE: XR chest 2V DATE OF EXAM: 01/07/2024 COMPARISON: Prior chest x-ray January 02, 2024 HISTORY: Shortness of breath and chest pain TECHNIQUE: Frontal and lateral views of the chest are obtained. FINDINGS: Exam suboptimal secondary to patient's large body habitus. Cardiomegaly remains present. L ateral view is nondiagnostic. There is no suspicious new focal air space opacity, pleural effusion, o r pneumothorax seen. The osseous structures are intact. IMPRESSION: Suboptimal study. Cardiomegaly without acute pulmonary process.
[2024-01-07 06:19] VITALS: BP 123/54; PULSE 94; RESP 18
== END 2024-01-07 06:40 | disposition home or self-care (01) ==
LOC: EC 03:58
DX: J10.1 Influenza due to other identified influenza virus with other respiratory manifestations (principal); I51.7 Cardiomegaly; I45.10 Unspecified right bundle-branch block; J44.89 Other specified chronic obstructive pulmonary disease; G47.30 Sleep apnea, unspecified; M19.90 Unspecified osteoarthritis, unspecified site; Z79.1 Long term (current) use of non-steroidal anti-inflammatories (NSAID); Z79.899 Other long term (current) drug therapy; Z88.8 Allergy status to other drugs, medicaments and biological substances; Z87.891 Personal history of nicotine dependence
CPT/HCPCS: 36415; 71046; 80048; 83880; 84484; 85025; 85610; 85730; 87636; 93005; 99285

== ENCOUNTER 2024-02-06 13:58 | Observation (INO) | payer MEDICARE, OTHER ==
--- NOTE | 2024-02-06 14:18 | ED ---
General Adult HPI - General Chief complaint: Chest Pain Stated complaint: SOB/Chest Pain Time Seen by Provider: 02/06/24 14:07 Source: patient, RN notes reviewed Mode of arrival: ambulatory Limitations: no limitations - History of Present Illness Initial comments: Patient is a 58-year-old male presents emergency department chest discomfort and shortness of breath. Patient states he does get the symptoms frequently, approximately once a month now. Patient is a poor historian and has a difficult time describing his symptoms. Patient states he does have history of atrial fibrillation and wonders if that may be related. - Related Data Home Medications Medication Instructions Recorded Confirmed Spironolactone [Aldactone] 25 mg PO DAILY 12/25/20 02/06/24 Meloxicam 7.5 mg PO DAILY 08/05/21 02/06/24 Umeclidinium [place] [Incruse 1 puff INHALATION RT-DAILY 12/18/23 02/06/24 Ellipta] Albuterol Inhaler [Ventolin Hfa 1 - 2 puff INHALATION RT-Q6H PRN 02/06/24 02/06/24 Inhaler] Apixaban [Eliquis] 5 mg PO BID 02/06/24 02/06/24 Budesonide/Formoterol Fumarate 1 puff INHALATION RT-DAILY 02/06/24 02/06/24 [Breyna 160-4.5 Mcg Inhaler] Fluticasone Propion/Salmeterol 2 puff INHALATION RT-BID 02/06/24 02/06/24 [Advair Hfa 230-21 Mcg Inhaler] Metoprolol Tartrate [Lopressor] 25 mg PO BID 02/06/24 02/06/24 Allergies Allergy/AdvReac Type Severity Reaction Status Date / Time isosorbide [From Imdur] AdvReac headache & Verified 02/06/24 14:39 blurred vision metoprolol [From Toprol XL] AdvReac headache & Verified 02/06/24 14:39 blurred vision Review of Systems ROS Statement: Those systems with pertinent positive or pertinent negative responses have been documented in the HPI. ROS Other: All systems not noted in ROS Statement are negative. Constitutional: Denies: fever Eyes: Denies: eye pain ENT: Denies: ear pain Respiratory: Reports: as per HPI, dyspnea Cardiovascular: Reports: as per HPI, chest pain Musculoskeletal: Denies: back pain Past Medical History Past Medical History: Atrial Fibrillation, Asthma, COPD, GERD/Reflux, Osteoarthritis (OA), Sleep Apnea/CPAP/BIPAP Additional Past Medical History / Comment(s): JEANIE/unable to tolerate cpap, pneumonias, bronchitis, chronic lower extremity lymphedema/redness/scabs, arthritis in multiple joints/chronic pain/chronic back pain History of Any Multi-Drug Resistant Organisms: None Reported Past Surgical History: Adenoidectomy, Appendectomy, Orthopedic Surgery, Tonsillectomy Additional Past Surgical History / Comment(s): Bilateral knee arthroscopy, UVPPP, carpal tunnel surgery, right shoulder surgery, colonoscopy/benign polypectomy. Past Anesthesia/Blood Transfusion Reactions: No Reported Reaction Past Psychological History: No Psychological Hx Reported Smoking Status: Former smoker Past Alcohol Use History: None Reported Past Drug Use History: None Reported - Past Family History Father History Unknown: Yes Family Medical History: Cancer Additional Family Medical History / Comment(s): . Mother History Unknown: Yes Family Medical History: Deep Vein Thrombosis (DVT) General Exam Limitations: no limitations General appearance: alert, in no apparent distress Head exam: Present: normocephalic Eye exam: Present: normal appearance Neck exam: Present: normal inspection Respiratory exam: Present: rales Cardiovascular Exam: Present: regular rate, normal rhythm, normal heart sounds GI/Abdominal exam: Present: soft. Absent: tenderness Extremities exam: Present: pedal edema. Absent: calf tenderness Neurological exam: Present: alert Psychiatric exam: Present: normal affect, normal mood Skin exam: Present: normal color Course Vital Signs 02/06/24 02/06/24 14:03 15:17 Temperature 98.2 F Pulse Rate 80 78 Respiratory 24 20 Rate Blood Pressure 125/76 123/83 O2 Sat by Pulse 94 L 94 L Oximetry EKG Findings - EKG Results: EKG: interpreted by ERMD (Right bundle branch block), sinus rhythm, normal axis, normal ST/T Medical Decision Making - Medical Decision Making Was pt. sent in by a medical professional or institution (, PA, [facility], urgent care, hospital, or [facility]...) When possible be specific @ -No Did you speak to anyone other than the patient for history (EMS, parent, family, police, friend...)? What history was obtained from this source @ -No Did you review nursing and triage notes (agree or disagree)? Why? @ -I reviewed and agree with nursing and triage notes Were old charts reviewed (outside hosp., previous admission, EMS record, old EKG, old radiological studies, urgent care reports/EKG's, [facility] records)? Report findings @ -Previous chest x-ray reviewed Differential Diagnosis (chest pain, altered mental status, abdominal pain women, abdominal pain men, vaginal bleeding, weakness, fever, dyspnea, syncope, headache, dizziness, GI bleed, back pain, seizure, CVA, palpatations, mental health, musculoskeletal)? @ -Differential Chest Pain: Stable Angina, Unstable Angina, STEMI, NSTEMI Aortic Dissection, Pneumothorax, Musculoskeletal, Esophageal Spasm GERD, Cholecystitis, Pancreatitis, Zoster, this is not meant to be an all-inclusive list. EKG interpreted by me (3pts min.). @ -As above X-rays interpreted by me (1pt min.). @ -X-ray shows no acute process CT interpreted by me (1pt min.). @ -None done U/S interpreted by me (1pt. min.). @ -None done What testing was considered but not performed or refused? (CT, X-rays, U/S, labs)? Why? @ -D-dimer will be added What meds were considered but not given or refused? Why? @ -None Did you discuss the management of the patient with other professionals (professionals i.e. , PA, [facility]ER, lab, RT, psych nurse, social service technician, pipe layer helper, teacher, executive officer, case mgr)? Give summary @ -Case discussed with Dr. Quiroz will admit covering Dr. Hope. Was smoking cessation discussed for >3mins.? @ -No Was critical care preformed (if so, how long)? @ -No Were there social determinants of health that impacted care today? How? (Homelessness, low income, unemployed, alcoholism, drug addiction, transp ortation, low edu. Level, literacy, decrease access to med. care, half-way, rehab)? @ -No Was there de-escalation of care discussed even if they declined (Discuss DNR or withdrawal of care, Hospice)? DNR status @ -No What co-morbidities impacted this encounter? (DM, HTN, Smoking, COPD, CAD, Cancer, CVA, ARF, Chemo, Hep., AIDS, mental health diagnosis, sleep apnea, morbid obesity)? @ -None Was patient admitted / discharged? Hospital course, mention meds given and route, prescriptions, significant lab abnormalities, going to OR and other pertinent info. @ -Patient reevaluated and sitting upright in chair. Patient does feel little bit better. Patient is updated on results and plan. Patient will be admitted. Admission orders written. Cardiac consult be placed. Undiagnosed new problem with uncertain prognosis? @ -No Drug Therapy requiring intensive monitoring for toxicity (Heparin, Nitro, Insulin, Cardizem)? @ -No Were any procedures done? @ -No Diagnosis/symptom? @ -Chest pain Acute, or Chronic, or Acute on Chronic? @ -Acute Uncomplicated (without systemic symptoms) or Complicated (systemic symptoms)? @ -Default Side effects of treatment? @ -No Exacerbation, Progression, or Severe Exacerbation? @ -No Poses a threat to life or bodily function? How? (Chest pain, [place], [place], pneumonia, PE, COPD, DKA, ARF, appy, cholecystitis, CVA, Diverticulitis, Homicidal, Suicidal, threat to staff... and all critical care pts) @ -No - Lab Data Result diagrams: 02/06/24 14:42 02/06/24 14:42 Lab Results 02/06/24 02/06/24 02/06/24 Range/Units 14:42 14:42 14:42 WBC 9.3 (3.8-10.6) k/uL RBC 4.99 (4.30-5.90) m/uL Hgb 13.3 (13.0-17.5) gm/dL Hct 42.6 (39.0-53.0) % MCV 85.4 (80.0-100.0) fL MCH 26.6 (25.0-35.0) pg MCHC 31.2 (31.0-37.0) g/dL RDW 15.9 H (11.5-15.5) % Plt Count 252 (150-450) k/uL MPV 7.4 Neutrophils % 77 % Lymphocytes % 13 % Monocytes % 6 % Eosinophils % 2 % Basophils % 0 % Neutrophils # 7.1 (1.3-7.7) k/uL Lymphocytes # 1.2 (1.0-4.8) k/uL Monocytes # 0.5 (0-1.0) k/uL Eosinophils # 0.2 (0-0.7) k/uL Basophils # 0.0 (0-0.2) k/uL Hypochromasia Slight PT 10.0 (10.0-12.5) sec INR 0.9 (<1.2) APTT 27.2 (22.0-30.0) sec Sodium 138 (137-145) mmol/L Potassium 4.3 (3.5-5.1) mmol/L Chloride 103 (98-107) mmol/L Carbon Dioxide 29 (22-30) mmol/L Anion Gap 6 mmol/L BUN 19 (9-20) mg/dL Creatinine 0.55 L (0.66-1.25) mg/dL Est GFR (CKD-EPI)AfAm >90 (>60 ml/min/1.73 sqM) Est GFR (CKD-EPI)NonAf >90 (>60 ml/min/1.73 sqM) Glucose 135 H (74-99) mg/dL Calcium 9.1 (8.4-10.2) mg/dL Magnesium 1.9 (1.6-2.3) mg/dL Total Bilirubin 0.4 (0.2-1.3) mg/dL AST 19 (17-59) U/L ALT 17 (4-49) U/L Alkaline Phosphatase 81 (38-126) U/L Troponin I (0.000-0.034) ng/mL NT-Pro-B Natriuret Pep 213 pg/mL Total Protein 5.9 L (6.3-8.2) g/dL Albumin 3.6 (3.5-5.0) g/dL 02/06/24 Range/Units 14:42 WBC (3.8-10.6) k/uL RBC (4.30-5.90) m/uL Hgb (13.0-17.5) gm/dL Hct (39.0-53.0) % MCV (80.0-100.0) fL MCH (25.0-35.0) pg MCHC (31.0-37.0) g/dL RDW (11.5-15.5) % Plt Count (150-450) k/uL MPV Neutrophils % % Lymphocytes % % Monocytes % % Eosinophils % % Basophils % % Neutrophils # (1.3-7.7) k/uL Lymphocytes # (1.0-4.8) k/uL Monocytes # (0-1.0) k/uL Eosinophils # (0-0.7) k/uL Basophils # (0-0.2) k/uL Hypochromasia PT (10.0-12.5) sec INR (<1.2) APTT (22.0-30.0) sec Sodium (137-145) mmol/L Potassium (3.5-5.1) mmol/L Chloride (98-107) mmol/L Carbon Dioxide (22-30) mmol/L Anion Gap mmol/L BUN (9-20) mg/dL Creatinine (0.66-1.25) mg/dL Est GFR (CKD-EPI)AfAm (>60 ml/min/1.73 sqM) Est GFR (CKD-EPI)NonAf (>60 ml/min/1.73 sqM) Glucose (74-99) mg/dL Calcium (8.4-10.2) mg/dL Magnesium (1.6-2.3) mg/dL Total Bilirubin (0.2-1.3) mg/dL AST (17-59) U/L ALT (4-49) U/L Alkaline Phosphatase (38-126) U/L Troponin I <0.012 (0.000-0.034) ng/mL NT-Pro-B Natriuret Pep pg/mL Total Protein (6.3-8.2) g/dL Albumin (3.5-5.0) g/dL Disposition Clinical Impression: Chest pain Disposition: ADMITTED IP TO THIS HOSP Is patient prescribed a controlled substance at d/c from ED?: No Referrals: Alfredo Hope DO [Primary Care Provider] - 1-2 days Time of Disposition: 15:33
[2024-02-06] MEDS: ASPIRIN 81 MG PO STA (14:44)
[2024-02-06] MEDS: NITROGLYCERIN OINT 1 INCH/GM PACKET TOPICAL STA (14:44)
[2024-02-06 14:57] LABS: Basophils % (A) 0 %; Eosinophils # (A) 0.2 k/uL (0-0.7); Eosinophils % (A) 2 %; HCT 42.6 % (39.0-53.0); HGB 13.3 gm/dL (13.0-17.5); Hypochromasia Slight; Lymphocytes # (A) 1.2 k/uL (1.0-4.8); Lymphocytes % (A) 13 %; MCH 26.6 pg (25.0-35.0); MCHC 31.2 g/dL (31.0-37.0); MCV 85.4 fL (80.0-100.0); Mean Platelet Volume 7.4; Monocytes # (A) 0.5 k/uL (0-1.0); Monocytes % (A) 6 %; Neutrophils # (A) 7.1 k/uL (1.3-7.7); Neutrophils % (A) 77 %; Platelet Count 252 k/uL (150-450); RBC 4.99 m/uL (4.30-5.90); RDW 15.9 % (11.5-15.5); WBC 9.3 k/uL (3.8-10.6)
[2024-02-06 15:02] LABS: ALT 17 U/L (4-49); AST 19 U/L (17-59); African American GFR (CKD) >90 (>60 ml/min/1.73 sqM); Albumin 3.6 g/dL (3.5-5.0); Alkaline Phosphatase 81 U/L (38-126); Anion Gap 6 mmol/L; Blood Urea Nitrogen 19 mg/dL (9-20); Calcium 9.1 mg/dL (8.4-10.2); Carbon Dioxide 29 mmol/L (22-30); Chloride 103 mmol/L (98-107); Glucose 135 mg/dL (74-99); INR 0.9 (<1.2); Magnesium 1.9 mg/dL (1.6-2.3); Non-African American GFR(CKD) >90 (>60 ml/min/1.73 sqM); Partial Thromboplastin Time 27.2 sec (22.0-30.0); Potassium 4.3 mmol/L (3.5-5.1); Sodium 138 mmol/L (137-145); Total Bilirubin 0.4 mg/dL (0.2-1.3); Total Protein 5.9 g/dL (6.3-8.2)
[2024-02-06 15:11] LABS: NT-Pro-B-Type Natriuretic Pept 213 pg/mL
[2024-02-06] MEDS ORDERED: NITROGLYCERIN SL TABS 0.4 MG TAB SUBLINGUAL PRN (15:34)
--- NOTE | 2024-02-06 16:31 | XR ---
EXAM: XR chest 1V portable CLINICAL INDICATION:Male, 58 years old with history of cp; [facility] COMPARISON: 01/07/2024 TECHNIQUE: Chest single view. FINDINGS: Exam is limited by patient body habitus. Lines/tubes/devices: EKG leads overlie the chest. No indwelling lines are seen. Cardiomediastinum: Cardiomediastinal silhouette is enlarged, similar to previous. Vasculature: No significantly increased pulmonary vasculature. Lungs/pleura: No consolidation, sizeable effusion, or visible pneumothorax. Bones/soft tissues: Bony thorax appears grossly intact as seen. Regional soft tissues appear unremarkable. IMPRESSION: No acute cardiopulmonary findings compared to previous.
--- NOTE | 2024-02-06 19:44 | P.HPIM ---
History of Present Illness H&P Date: 02/06/24 Chief Complaint: Chest pain This is a 58-year-old patient of Dr. Hope. Has a history of COPD, obstructive sleep apnea had a UPPP. Osteoarthritis in multiple joints especi ally the knees. Patient is chronically short of breath. Baseline uses crutches Now presents to the ER episodes of chest pain that started around 2 in the morning till later this afternoon. Pain did go to the back. Patient is baseline has some dizziness no more short of breath than baseline. No fever no chills. No cough. No prior cardiac history. Review of systems: GEN.: Tired, EYES: None HEENT: None NECK: None RESPIRATORY: As above CARDIOVASCULAR: As above GASTROINTESTINAL: None GENITOURINARY: None MUSCULOSKELETAL: Joint pains LYMPHATICS: None HEMATOLOGICAL: None PSYCHIATRY: Anxious NEUROLOGICAL: None Past medical history to include: COPD, osteoarthritis, obstructive sleep apnea with UPPP, dry skin Social history: Lives with brother. Smoked for about 14 years stopped in 2006. Currently not employed. Used to work at [employer]. Physical examination: VITAL SIGNS: 97.8, 73, 16, 122 x 69, 98% on 3 L GENERAL: BMI 63.1, up in a recliner short of breath EYES: Pupils equal. Conjunctiva normal. HEENT: External appearance of nose and ears normal, oral cavity grossly normal. NECK: JVD unable to assess masses not palpable. HEART: First and second heart sounds are normal; mild edema. LUNGS: Respiratory rate increased, diminished breath sounds prolonged expiration ABDOMEN: Soft, nontender, liver spleen not palpable, no masses palpable. PSYCH: Alert and oriented x3; mood and affect normal NEUROLOGICAL: Cranial nerves grossly intact; no facial asymmetry, power and sensation grossly intact. LYMPHATICS: No lymph nodes palpable in the axilla and neck DERMATOLOGICAL: Right lower extremity skin INVESTIGATIONS, reviewed in the clinical context: February 05: White count 9.3 hemoglobin 13.3 platelets 252 sodium 138 potassium 4.3 creatinine 0.55 Troponin I x 3 less than 0.012 EKG tracing personally reviewed by me-right bundle jaja block. Sinus rhythm. Chest x-ray film personally reviewed by me-no obvious infiltrates Assessment and plan: -Anterior chest wall pain. Cardiac risk factors include morbidly obese and decreased activity. Troponins negative. Telemetry. Cardiology consulted. -COPD no previous smoker Resume home bronchodilators -Bilateral lower extremity xeroderma Topical care -Obesity hypoventilation syndrome/pickwickian syndrome -Obstructive sleep apnea with the patient-previously had UPPP -Paroxysmal atrial fibrillation, currently in sinus rhythm Lopressor. Eliquis. -Bilateral knee arthralgia Tylenol when necessary -Morbid obesity BMI 63.1 Weight loss measures -Chronic left lower extremity venous insufficiency with skin changes Care was discussed with the patient. Questions answered. Past Medical History Past Medical History: Atrial Fibrillation, Asthma, COPD, GERD/Reflux, Osteoarthr itis (OA), Sleep Apnea/CPAP/BIPAP Additional Past Medical History / Comment(s): JEANIE/unable to tolerate cpap, pneumonias, bronchitis, chronic lower extremity lymphedema/redness/scabs, arthritis in multiple joints/chronic pain/chronic back pain History of Any Multi-Drug Resistant Organisms: None Reported Past Surgical History: Adenoidectomy, Appendectomy, Orthopedic Surgery, Tonsillectomy Additional Past Surgical History / Comment(s): Bilateral knee arthroscopy, UVPPP, carpal tunnel surgery, right shoulder surgery, colonoscopy/benign polypectomy. Past Anesthesia/Blood Transfusion Reactions: No Reported Reaction Past Psychological History: No Psychological Hx Reported Additional Psychological History / Comment(s): Pt has a brother/nephew who live with him. Pt uses crutches to ambulate. He drives. He has a nebulizer. Smoking Status: Former smoker Past Alcohol Use History: None Reported Additional Past Alcohol Use History / Comment(s): Pt started smoking in 1979 and quit smoking 12/09/2006. Past Drug Use History: None Reported - Past Family History Father History Unknown: Yes Family Medical History: Cancer Additional Family Medical History / Comment(s): . Mother History Unknown: Yes Family Medical History: Deep Vein Thrombosis (DVT) Medications and Allergies Home Medications Medication Instructions Recorded Confirmed Type Spironolactone [Aldactone] 25 mg PO DAILY 12/25/20 02/06/24 History Meloxicam 7.5 mg PO DAILY 08/05/21 02/06/24 History Umeclidinium [place] [Incruse 1 puff INHALATION RT-DAILY 12/18/23 02/06/24 History Ellipta] Albuterol Inhaler [Ventolin Hfa 1 - 2 puff INHALATION RT-Q6H PRN 02/06/24 02/06/24 History Inhaler] Apixaban [Eliquis] 5 mg PO BID 02/06/24 02/06/24 History Budesonide/Formoterol Fumarate 1 puff INHALATION RT-DAILY 02/06/24 02/06/24 History [Breyna 160-4.5 Mcg Inhaler] Fluticasone Propion/Salmeterol 2 puff INHALATION RT-BID 02/06/24 02/06/24 History [Advair Hfa 230-21 Mcg Inhaler] Metoprolol Tartrate [Lopressor] 25 mg PO BID 02/06/24 02/06/24 History Allergies Allergy/AdvReac Type Severity Reaction Status Date / Time isosorbide [From Imdur] AdvReac headache & Verified 02/06/24 14:39 blurred vision metoprolol [From Toprol XL] AdvReac headache & Verified 02/06/24 14:39 blurred vision Physical Exam Vitals: Vital Signs Temp Pulse Pulse Resp BP BP Pulse Ox 02/06/24 17:11 97.8 F 73 16 122/69 98 02/06/24 16:38 76 18 140/76 97 02/06/24 15:17 78 20 123/83 94 L 02/06/24 14:03 98.2 F 80 24 125/76 94 L Intake and Output 02/06/24 02/06/24 02/06/24 06:59 14:59 22:59 Intake Total 180 Balance 180 Intake: Oral 180 Other: Weight 199.581 kg 199.581 kg Results CBC & Chem 7: 02/06/24 14:42 02/06/24 14:42 Labs: Abnormal Lab Results - Last 24 Hours (Table) 02/06/24 02/06/24 Range/Units 14:42 14:42 RDW 15.9 H (11.5-15.5) % Creatinine 0.55 L (0.66-1.25) mg/dL Glucose 135 H (74-99) mg/dL Total Protein 5.9 L (6.3-8.2) g/dL Thrombosis Risk Factor Assmnt - Choose All That Apply Any of the Below Risk Factors Present?: Yes Each Factor Represents 1 point: Age 41-60 years, Obesity (BMI >25) Other Risk Factors: Yes Other congenital or acquired thrombophilia - If yes, enter type in comment: No Thrombosis Risk Factor Assessment Total Risk Factor Score: 2 Thrombosis Risk Factor Assessment Level: Low Risk
[2024-02-06] MEDS ORDERED: NON FORMULARY DRUG (Fluticasone Propion/Salmeterol [Advair Hfa 230-21 Mcg Inhaler] 8 GM Gm INHALATION SCH (20:00)
[2024-02-06] MEDS: APIXABAN 5 MG TAB PO SCH (22:08)
[2024-02-06] MEDS: NITROGLYCERIN OINT 1 INCH/GM PACKET TOPICAL SCH (22:09)
[2024-02-06] MEDS: METOPROLOL TARTRATE 25 MG TAB PO SCH (22:09)
[2024-02-07] MEDS: SPIRONOLACTONE 25 MG TAB PO SCH (08:07)
[2024-02-07] MEDS: MELOXICAM 7.5 MG TAB PO SCH (08:07)
[2024-02-07] MEDS: ASPIRIN 325 MG TAB PO SCH (08:07)
[2024-02-07] MEDS: SYMBICORT 160-4.5 MCG INHALER INHALATION SCH (09:00)
[2024-02-07] MEDS: IPRATROPIUM 0.5 MG/2.5 ML NEBU INHALATION SCH (09:00)
[2024-02-07 09:01] LABS: Chol/HDL Ratio 4.36 Ratio; LDL Cholesterol,Calculated 104.8 mg/dL (0.0-131.0)
[2024-02-07] MEDS ORDERED: SODIUM CHLORIDE 0.65% NASAL SPRAY 44 ML BTL NASAL PRN (10:38)
[2024-02-07 11:17] VITALS: BP 130/71; RESP 18; TEMP 97.6
--- NOTE | 2024-02-07 12:20 | P.CRDCN ---
History of Present Illness Consult date: 02/07/24 Consult reason: chest pain History of present illness: History of present illness: This is a 58-year-old male with past medical history of atrial fibrillation, chronic diastolic heart failure, COPD, asthma, obstructive sleep apnea unable to tolerate CPAP, chronic lower extremity edema, severe LVH on prior echo, chronic kidney disease, chronic dyspnea on exertion. We have been asked to evaluate the patient for chest pain. Patient complains of chest pain in the midsternal area onset while he was sitting along with shortness of breath lightheadedness and dizziness. Patient complains of pain with deep breathing. He denies any injury to his chest. He states he has a little cough. Pain is still there at the time of evaluation. He denies any palpitations but states he does not feel when he is in atrial fibrillation. Patient is sedentary. He initially thought the pain was due to gas. Pain radiates through to his back. He has had the same type of pain in the past. Patient states that he has been taking all of his medications as directed. EKG sinus rhythm Chest x-ray: No acute process. CBC INR, D-dimer, CMP unremarkable. Procalcitonin 0.1. Troponin negative x 3. Home cardiac medications: Eliquis 5 mg twice daily, Lopressor 25 mg twice daily, Aldactone 25 mg daily. Dobutamine stress test performed 07/08/2022 reveals normal stress EKG and echo response to dobutamine infusion without evidence of inducible ischemia. Normal LVEF 55%. Echocardiogram performed 05/29/2023 reveals technically difficult study, EF 55 to 60%, increased left ventricular wall thickness, mild right ventricular dilation. Echocardiogram performed 07/07/2022 reveals technically difficult study. EF 50 to 55%, moderate LVH. Cardiac catheterization performed 06/17/2023 revealed normal coronary arteries. Minimal elevated left-sided filling pressures with relatively normal right-sided pressures. Normal cardiac output, cardiac index. Review Of Systems: At the time of my exam: CONSTITUTIONAL: Denies fever or chills. HEENT: Denies blurred vision, vision changes, or eye pain. Denies hemoptysis CARDIOVASCULAR: Denies chest pain. Denies orthopnea. Denies PND. Denies palpitations RESPIRATORY: Denies shortness of breath. Reports dyspnea on exertion. GASTROINTESTINAL: Denies abdominal pain. Denies nausea or vomiting. HEMATOLOGIC: Denies bleeding disorders. GENITOURINARY: Denies any blood in urine. SKIN: Denies pruitis. Denies rash. Physical examination: Gen: This is a morbidly obese 58-year-old male in no acute distress VS: reviewed HEENT: Head is atraumatic, normocephalic. Pupils equal, round. Sclerae is anicteric. NECK: Supple. No JVD. LUNGS: Clear to auscultation. No wheezes or rhonchi. No intercostal retractions. HEART: Regular rate and rhythm. No murmur. ABDOMEN: Soft No tenderness. EXTREMITIES: Chronic skin changes to the bilateral lower extremities with thick hard calluses on the plantar surface, mild lower extremity edema. NEUROLOGICAL: Patient is awake, alert and oriented x3. Assessment: Atypical chest pain Paroxysmal atrial fibrillation currently in sinus rhythm History of left ventricular hypertrophy Normal coronary arteries on cardiac catheterization performed 06/2023 Severe morbid obesity with BMI of 63 Chronic diastolic heart failure COPD Asthma Plan: Resume patient's home cardiac medications Obtain 2-D echocardiogram and Doppler study to assess cardiac structure and function Discontinue Nitropaste. If echocardiogram is unremarkable, patient is cleared for discharge home and may follow-up in the office in 1 to 2 weeks. Thank you kindly for this consultation. Nurse practitioner note has been reviewed, I agree with documented findings and plan of care. Patient was seen and examined. Past Medical History Past Medical History: Atrial Fibrillation, Asthma, COPD, GERD/Reflux, Osteoarthritis (OA), Sleep Apnea/CPAP/BIPAP Additional Past Medical History / Comment(s): JEANIE/unable to tolerate cpap, pneumonias, bronchitis, chronic lower extremity lymphedema/redness/scabs, arthritis in multiple joints/chronic pain/chronic back pain History of Any Multi-Drug Resistant Organisms: None Reported Past Surgical History: Adenoidectomy, Appendectomy, Orthopedic Surgery, Tonsillectomy Additional Past Surgical History / Comment(s): Bilateral knee arthroscopy, UV PPP, carpal tunnel surgery, right shoulder surgery, colonoscopy/benign polypectomy. Past Anesthesia/Blood Transfusion Reactions: No Reported Reaction Past Psychological History: No Psychological Hx Reported Additional Psychological History / Comment(s): Pt has a brother/nephew who live with him. Pt uses crutches to ambulate. He drives. He has a nebulizer. Smoking Status: Former smoker Past Alcohol Use History: None Reported Additional Past Alcohol Use History / Comment(s): Pt started smoking in 1979 and quit smoking 12/09/2006. Past Drug Use History: None Reported - Past Family History Father History Unknown: Yes Family Medical History: Cancer Additional Family Medical History / Comment(s): . Mother History Unknown: Yes Family Medical History: Deep Vein Thrombosis (DVT) Medications and Allergies Home Medications Medication Instructions Recorded Confirmed Type Spironolactone [Aldactone] 25 mg PO DAILY 12/25/20 02/06/24 History Meloxicam 7.5 mg PO DAILY 08/05/21 02/06/24 History Umeclidinium [place] [Incruse 1 puff INHALATION RT-DAILY 12/18/23 02/06/24 History Ellipta] Albuterol Inhaler [Ventolin Hfa 1 - 2 puff INHALATION RT-Q6H PRN 02/06/24 02/06/24 History Inhaler] Apixaban [Eliquis] 5 mg PO BID 02/06/24 02/06/24 History Budesonide/Formoterol Fumarate 1 puff INHALATION RT-DAILY 02/06/24 02/06/24 History [Breyna 160-4.5 Mcg Inhaler] Fluticasone Propion/Salmeterol 2 puff INHALATION RT-BID 02/06/24 02/06/24 History [Advair Hfa 230-21 Mcg Inhaler] Metoprolol Tartrate [Lopressor] 25 mg PO BID 02/06/24 02/06/24 History Allergies Allergy/AdvReac Type Severity Reaction Status Date / Time isosorbide [From Imdur] AdvReac headache & Verified 02/06/24 14:39 blurred vision metoprolol [From Toprol XL] AdvReac headache & Verified 02/06/24 14:39 blurred vision Physical Exam Vitals: Vital Signs Temp Pulse Pulse Resp BP BP Pulse Ox 02/07/24 02:00 97.5 F L 76 16 147/70 99 02/06/24 20:00 97.5 F L 72 16 126/72 97 02/06/24 17:11 97.8 F 73 16 122/69 98 02/06/24 16:38 76 18 140/76 97 02/06/24 15:17 78 20 123/83 94 L 02/06/24 14:03 98.2 F 80 24 125/76 94 L Intake and Output 02/06/24 02/07/24 02/07/24 22:59 06:59 14:59 Intake Total 180 Balance 180 Intake: Oral 180 Other: # Voids 1 2 Weight 199.581 kg Results 02/06/24 14:42 02/06/24 14:42 Cardiac Enzymes 02/06/24 02/06/24 02/06/24 Range/Units 14:42 14:42 16:28 AST 19 (17-59) U/L Troponin I <0.012 <0.012 (0.000-0.034) ng/mL 02/06/24 Range/Units 17:57 AST (17-59) U/L Troponin I <0.012 (0.000-0.034) ng/mL Coagulation 02/06/24 Range/Units 14:42 PT 10.0 (10.0-12.5) sec APTT 27.2 (22.0-30.0) sec CBC 02/06/24 Range/Units 14:42 WBC 9.3 (3.8-10.6) k/uL RBC 4.99 (4.30-5.90) m/uL Hgb 13.3 (13.0-17.5) gm/dL Hct 42.6 (39.0-53.0) % Plt Count 252 (150-450) k/uL Comprehensive Metabolic Panel 02/06/24 Range/Units 14:42 Sodium 138 (137-145) mmol/L Potassium 4.3 (3.5-5.1) mmol/L Chloride 103 (98-107) mmol/L Carbon Dioxide 29 (22-30) mmol/L BUN 19 (9-20) mg/dL Creatinine 0.55 L (0.66-1.25) mg/dL Glucose 135 H (74-99) mg/dL Calcium 9.1 (8.4-10.2) mg/dL AST 19 (17-59) U/L ALT 17 (4-49) U/L Alkaline Phosphatase 81 (38-126) U/L Total Protein 5.9 L (6.3-8.2) g/dL Albumin 3.6 (3.5-5.0) g/dL Current Medications Generic Name Dose Route Start Last Admin Trade Name Freq PRN Reason Stop Dose Admin Apixaban 5 mg 02/06/24 21:00 02/06/24 22:08 Apixaban 5 Mg Tab PO 5 mg BID [facility] Administration Protocol Aspirin 325 mg 02/07/24 09:00 Aspirin 325 Mg Tab PO DAILY [facility] Budesonide/Formoterol Fumarate 1 puff 02/07/24 08:00 Symbicort 160-4.5 Mcg Inhaler INHALATION RT-DAILY [facility] Ipratropium [place] 0.5 mg 02/07/24 08:00 Ipratropium 0.5 Mg/2.5 Ml Nebu INHALATION RT-QID [facility] Meloxicam 7.5 mg 02/07/24 09:00 Meloxicam 7.5 Mg Tab PO DAILY [facility] Metoprolol Tartrate 25 mg 02/06/24 21:00 02/06/24 22:09 Metoprolol Tartrate 25 Mg Tab PO Not Given BID [facility] Nitroglycerin 0.4 mg 02/06/24 15:34 Nitroglycerin Sl Tabs 0.4 Mg Tab SUBLINGUAL Q5M PRN Chest Pain Nitroglycerin 1 inch 02/06/24 19:00 02/07/24 05:49 Nitroglycerin Oint 1 Inch/Gm Packet TOPICAL Not Given Q6HR [facility] Spironolactone 25 mg 02/07/24 09:00 Spironolactone 25 Mg Tab PO DAILY [facility] Intake and Output 02/06/24 02/07/24 02/07/24 22:59 06:59 14:59 Intake Total 180 Balance 180 Intake: Oral 180 Other: # Voids 1 2 Weight 199.581 kg 02/06/24 14:42 02/06/24 14:42
[2024-02-07 12:46] VITALS: PULSE 76
--- NOTE | 2024-02-07 14:15 | CA ---
Transthoracic Echo Report Name: Alfredo Rosas Age: 58 Gender: M : 1965 Exam Date: 02/07/2024 12:41 Exam Location: [facility] Ht (in): 70 Wt (lb): 440 Ordering Physician: Jennifer Srivastava Attending/Referring Phys: [id number], Carola Manager Battery Omayra Castro RDCS Procedure CPT: Indications: LVF Cardiac Hx: Technical Quality: Very technically difficult study Contrast 1: Definity Total Dose (mL): 2 Contrast 2: Total Dose (mL): MEASUREMENTS (Male / Female) Normal Values 2D ECHO LV Diastolic Diameter PLAX 5.5 cm 4.2 - 5.9 / 3.9 - 5.3 cm LV Systolic Diameter PLAX 3.8 cm IVS Diastolic Thickness 1.8 cm 0.6 - 1.0 / 0.6 - 0.9 cm LVPW Diastolic Thickness 1.8 cm 0.6 - 1.0 / 0.6 - 0.9 cm LV Relative Wall Thickness 0.7 RV Internal Dim ED PLAX 3.5 cm LA Systolic Diameter LX 4.5 cm 3.0 - 4.0 / 2.7 - 3.8 cm M-MODE Aortic Root Diameter MM 4.0 cm FINDINGS Left Ventricle Left ventricular ejection fraction is estimated at 55-60 %. Left ventricular cavity size normal. Severe concentric left ventricular hypertrophy. Normal left ventricular wall motion. Severely increased septal wall thickness. Right Ventricle Mild right ventricular dilatation. Unable to estimate the right ventricular systolic pressure. Right Atrium Right atrium not well visualized. Left Atrium Mildly increased left atrial diameter. Mitral Valve Structurally normal mitral valve. No mitral stenosis, regurgitation or prolapse. Aortic Valve Trileaflet aortic valve. No aortic valve stenosis or regurgitation. Tricuspid Valve Structurally normal tricuspid valve. No tricuspid stenosis, regurgitation or prolapse. Pulmonic Valve Structurally normal pulmonic valve. Trace pulmonic regurgitation. Pericardium No pericardial effusion. Aorta Mild aortic dilatation at the level of the sinuses of valsalva 40 mm CONCLUSIONS Technically difficult study Left ventricular ejection fraction 55-60% Severe increased left ventricular wall thickness Unable to fully visualize valvular disease however no apparent significant mitral regurgitation or tricuspid regurgitation by color flow No pericardial effusion Previewed by: Dr. Rajinder Alexis DO (Electronically Signed) Final Date: 07 February 2024 14:14
--- NOTE | 2024-02-07 16:51 | P.DS ---
Providers Date of admission: 02/06/24 15:35 Expected date of discharge: 02/07/24 Attending physician: Kiran Quiroz Consults: 02/06/24 15:34 Consult Physician Urgent Consulting Provider: Seymour Talamantes Consult Reason/Comments: cp Do you want consulting provider notified?: Yes Primary care physician: [facility] Course: Chief Complaint: Chest pain This is a 58-year-old patient of Dr. Hope. Has a history of COPD, obstructive sleep apnea had a UPPP. Osteoarthritis in multiple joints especially the knees. Patient is chronically short of breath. Baseline uses crutches Now presents to the ER episodes of chest pain that started around 2 in the morning till later this afternoon. Pain did go to the back. Patient is baseline has some dizziness no more short of breath than baseline. No fever no chills. No cough. No prior cardiac history. February 06: Noted for the chest pain. Seen by cardiology. 2D echocardiogram unremarkable. Cleared for discharge. Will follow-up with cardiology in 2 weeks. Past medical history to include: COPD, osteoarthritis, obstructive sleep apnea with UPPP, dry skin Social history: Lives with brother. Smoked for about 14 years stopped in 2006. Currently not employed. Used to work at [employer]. Physical examination: VITAL SIGNS: 97.6, 73, 18, 130 x 71, 98% on 3 L GENERAL: BMI 63.1, comfortable EYES: Pupils equal. Conjunctiva normal. HEENT: External appearance of nose and ears normal, oral cavity grossly normal. NECK: JVD unable to assess masses not palpable. HEART: First and second heart sounds are normal; mild edema. LUNGS: Respiratory rate increased, diminished breath sounds prolonged expiration ABDOMEN: Soft, nontender, liver spleen not palpable, no masses palpable. PSYCH: Alert and oriented x3; mood and affect normal NEUROLOGICAL: Cranial nerves grossly intact; no facial asymmetry, power and sensation grossly intact. LYMPHATICS: No lymph nodes palpable in the axilla and neck DERMATOLOGICAL: Right lower extremity skin INVESTIGATIONS, reviewed in the clinical context: 2D echocardiogram: EF 55 to 60%. Severe concentric LVH. Severely increased septal wall thickness. LDL 104 February 05: White count 9.3 hemoglobin 13.3 platelets 252 sodium 138 potassium 4.3 creatinine 0.55 Troponin I x 3 less than 0.012 EKG tracing personally reviewed by me-right bundle jaja block. Sinus rhythm. Chest x-ray film personally reviewed by me-no obvious infiltrates Assessment and plan: -Anterior chest wall pain. Cardiac risk factors include morbidly obese and decreased activity.: Possibly musculoskeletal Troponins negative. Telemetry. Seen by cardiologymarco for discharge Follow-up with cardiology -COPD no previous smoker Resume home bronchodilators -Bilateral lower extremity xeroderma Topical care -Obesity hypoventilation syndrome/pickwickian syndrome -Obstructive sleep apnea with the patient-previously had UPPP -Paroxysmal atrial fibrillation, currently in sinus rhythm Lopressor. Eliquis. -Hypertensive heart disease with severe LVH Lopressor -Essential hypertension Lopressor -Bilateral knee arthralgia Tylenol when necessary -Morbid obesity BMI 63.1 Weight loss measures -Chronic left lower extremity venous insufficiency with skin changes Disposition: Home Past Medical History Past Medical History: Atrial Fibrillation, Asthma, COPD, GERD/Reflux, Osteoarthritis (OA), Sleep Apnea/CPAP/BIPAP Additional Past Medical History / Comment(s): JEANIE/unable to tolerate cpap, pneumonias, bronchitis, chronic lower extremity lymphedema/redness/scabs, arthritis in multiple joints/chronic pain/chronic back pain History of Any Multi-Drug Resistant Organisms: None Reported Past Surgical History: Adenoidectomy, Appendectomy, Orthopedic Surgery, Tonsillectomy Additional Past Surgical History / Comment(s): Bilateral knee arthroscopy, UVPPP, carpal tunnel surgery, right shoulder surgery, colonoscopy/benign polypectomy. Past Anesthesia/Blood Transfusion Reactions: No Reported Reaction Past Psychological History: No Psychological Hx Reported Additional Psychological History / Comment(s): Pt has a brother/nephew who live with him. Pt uses crutches to ambulate. He drives. He has a nebulizer. Smoking Status: Former smoker Past Alcohol Use History: None Reported Additional Past Alcohol Use History / Comment(s): Pt started smoking in 1979 and quit smoking 12/09/2006. Past Drug Use History: None Reported Plan - Discharge Summary Discharge Rx Participant: Yes New Discharge Prescriptions: New Aspirin 81 mg PO DAILY tab Famotidine [Pepcid] 20 mg PO BID #60 tablet Continue Spironolactone [Aldactone] 25 mg PO DAILY Umeclidinium [place] [Incruse Ellipta] 1 puff INHALATION RT-DAILY Metoprolol Tartrate [Lopressor] 25 mg PO BID Budesonide/Formoterol Fumarate [Breyna 160-4.5 Mcg Inhaler] 1 puff INHALATION RT-DAILY Meloxicam 7.5 mg PO DAILY Apixaban [Eliquis] 5 mg PO BID Albuterol Inhaler [Ventolin Hfa Inhaler] 1 - 2 puff INHALATION RT-Q6H PRN PRN Reason: Shortness Of Breath Or Wheezing Fluticasone Propion/Salmeterol [Advair Hfa 230-21 Mcg Inhaler] 2 puff INHALATION RT-BID Discharge Medication List Spironolactone [Aldactone] 25 mg PO DAILY 12/25/20 [History] Meloxicam 7.5 mg PO DAILY 08/05/21 [History] Umeclidinium [place] [Incruse Ellipta] 1 puff INHALATION RT-DAILY 12/18/23 [History] Albuterol Inhaler [Ventolin Hfa Inhaler] 1 - 2 puff INHALATION RT-Q6H PRN 02/06/24 [History] Apixaban [Eliquis] 5 mg PO BID 02/06/24 [History] Budesonide/Formoterol Fumarate [Breyna 160-4.5 Mcg Inhaler] 1 puff INHALATION RT-DAILY 02/06/24 [History] Fluticasone Propion/Salmeterol [Advair Hfa 230-21 Mcg Inhaler] 2 puff INHALATION RT-BID 02/06/24 [History] Metoprolol Tartrate [Lopressor] 25 mg PO BID 02/06/24 [History] Aspirin 81 mg PO DAILY tab 02/07/24 [Rx] Famotidine [Pepcid] 20 mg PO BID #60 tablet 02/07/24 [Rx] Follow up Appointment(s)/Referral(s): cardiology, [Other] - 02/14/24 2:45 pm Alfredo Hope DO [Primary Care Provider] - 1-2 days Patient Instructions/Handouts: Chest Pain (GEN) Discharge Disposition: HOME SELF-CARE
[2024-02-08] MEDS ORDERED: ASPIRIN 81 MG PO SCH (09:00)
== END 2024-02-07 16:34 | disposition home or self-care (01) ==
LOC: EC 13:58 → 6NMEDSUR 15:35
PROVIDERS: ADMIT Hospitalist; ATTEND Hospitalist
DX: R07.89 Other chest pain (principal); R06.02 Shortness of breath; K21.9 Gastro-esophageal reflux disease without esophagitis; I87.8 Other specified disorders of veins; I48.0 Paroxysmal atrial fibrillation; J44.9 Chronic obstructive pulmonary disease, unspecified; M17.0 Bilateral primary osteoarthritis of knee; I45.10 Unspecified right bundle-branch block; E66.2 Morbid (severe) obesity with alveolar hypoventilation; Z68.44 Body mass index [BMI] 60.0-69.9, adult; Z87.891 Personal history of nicotine dependence; Z79.899 Other long term (current) drug therapy; Z79.01 Long term (current) use of anticoagulants; Z79.51 Long term (current) use of inhaled steroids; Z88.8 Allergy status to other drugs, medicaments and biological substances; Z82.49 Family history of ischemic heart disease and other diseases of the circulatory system; Z79.1 Long term (current) use of non-steroidal anti-inflammatories (NSAID)
CPT/HCPCS: 99285; 36415; 94640 ×2; 93005; 93306; 85379; 83880; 80061; 80053; 83735; 84484; 85025; 85610; 85730; 84145; 71045; G0378 ×2; Q9957

== ENCOUNTER 2024-02-24 10:21 | Observation (INO) | payer OTHER ==
--- NOTE | 2024-02-24 11:25 | XR ---
EXAMINATION TYPE: XR chest 2V DATE OF EXAM: 02/24/2024 11:17 AM CLINICAL INDICATION:Male, 58 years old with history of SURYA COMPARISON: Chest radiographs from 02/06/2024 TECHNIQUE: XR chest 2V Frontal and lateral views of the chest. FINDINGS: Lungs/Pleura: There is no evidence of pleural effusion, focal consolidation, or pneumothorax. Pulmonary vascularity: Unremarkable. Heart/mediastinum: Cardiomediastinal silhouette is unremarkable. Musculoskeletal: No acute osseous pathology. IMPRESSION: Low lung volumes with a generalized hazy appearance which could represent atelectasis versus pulmonar y edema correlate with serum BNP.
[2024-02-24] MEDS ORDERED: SODIUM CHLORIDE 0.9% 500 ML 500 ML IV STA (11:34)
--- NOTE | 2024-02-24 11:39 | ED ---
General Adult HPI - General Chief complaint: Chest Pain Stated complaint: Chest Pains Time Seen by Provider: 02/24/24 11:15 Source: patient, RN notes reviewed, old records reviewed Mode of arrival: wheelchair Limitations: no limitations - History of Present Illness Initial comments: This is a 58-year-old male who presents to the emergency department the past medical history significant for atrial fibrillation and patient is on Eliquis. Patient also has history of high blood pressure and is morbidly obese. Patient presents today because he states last night starting about 11:00 he started having some chest pain with epigastric abdominal discomfort as well. Patient states he is nauseous and he is very congested as well. Patient states he is sh ort of breath but cannot tell if he is more short of breath than normal because he is always quite short of breath. Patient denies any knowledge of a fever but he states he has not taken his temperature. Patient denies any lower abdominal pain. Patient denies any recent injury or trauma patient denies any extremity pain. - Related Data Home Medications Medication Instructions Recorded Confirmed Spironolactone [Aldactone] 25 mg PO DAILY 12/25/20 02/24/24 Meloxicam 7.5 mg PO DAILY 08/05/21 02/24/24 Umeclidinium [place] [Incruse 1 puff INHALATION RT-DAILY 12/18/23 02/24/24 Ellipta] Albuterol Inhaler [Ventolin Hfa 1 - 2 puff INHALATION RT-Q6H PRN 02/06/24 02/24/24 Inhaler] Apixaban [Eliquis] 5 mg PO BID 02/06/24 02/24/24 Budesonide/Formoterol Fumarate 1 puff INHALATION RT-DAILY 02/06/24 02/24/24 [Breyna 160-4.5 Mcg Inhaler] Fluticasone Propion/Salmeterol 2 puff INHALATION RT-BID 02/06/24 02/24/24 [Advair Hfa 230-21 Mcg Inhaler] Metoprolol Tartrate [Lopressor] 25 mg PO BID 02/06/24 02/24/24 Furosemide [Lasix] 40 mg PO BID 02/24/24 02/24/24 Previous Rx's Medication Instructions Recorded Aspirin 81 mg PO DAILY tab 02/07/24 Famotidine [Pepcid] 20 mg PO BID #60 tablet 02/07/24 Allergies Allergy/AdvReac Type Severity Reaction Status Date / Time isosorbide [From Imdur] AdvReac headache & Verified 02/24/24 11:08 blurred vision metoprolol [From Toprol XL] AdvReac headache & Verified 02/24/24 11:08 blurred vision Review of Systems ROS Statement: Those systems with pertinent positive or pertinent negative responses have been documented in the HPI. ROS Other: All systems not noted in ROS Statement are negative. Past Medical History Past Medical History: Atrial Fibrillation, Asthma, COPD, GERD/Reflux, Oste oarthritis (OA), Sleep Apnea/CPAP/BIPAP Additional Past Medical History / Comment(s): JEANIE/unable to tolerate cpap, pneumonias, bronchitis, chronic lower extremity lymphedema/redness/scabs, arthritis in multiple joints/chronic pain/chronic back pain History of Any Multi-Drug Resistant Organisms: None Reported Past Surgical History: Adenoidectomy, Appendectomy, Orthopedic Surgery, Tonsillectomy Additional Past Surgical History / Comment(s): Bilateral knee arthroscopy, UVPPP, carpal tunnel surgery, right shoulder surgery, colonoscopy/benign polypectomy. Past Anesthesia/Blood Transfusion Reactions: No Reported Reaction Past Psychological History: No Psychological Hx Reported Smoking Status: Former smoker Past Alcohol Use History: None Reported Past Drug Use History: None Reported - Past Family History Father History Unknown: Yes Family Medical History: Cancer Additional Family Medical History / Comment(s): . Mother History Unknown: Yes Family Medical History: Deep Vein Thrombosis (DVT) General Exam - General Exam Comments Initial Comments: GENERAL: Patient is well-developed and well-nourished. Patient is nontoxic and well- hydrated and is in acute distress. ENT: Neck is soft and supple. No significant lymphadenopathy is noted. Oropharynx is clear. Moist mucous membranes. Neck has full range of motion without elicit ing any pain. EYES: The sclera were anicteric and conjunctiva were pink and moist. Extraocular mo vements were intact and pupils were equal round and reactive to light. Eyelids were unremarkable. PULMONARY: Unlabored respirations. Good breath sounds bilaterally. No audible rales rhonchi or wheezing was noted. CARDIOVASCULAR: There is a regular rate and rhythm without any murmurs gallops or rubs. ABDOMEN: Patient has mild epigastric and right upper quadrant abdominal pain SKIN: Skin is clear with no lesions or rashes and otherwise unremarkable. NEUROLOGIC: Patient is alert and oriented x3. Cranial nerves II through XII are grossly intact. Motor and sensory are also intact. Normal speech, volume and content. Symmetrical smile. MUSCULOSKELETAL: Normal extremities with adequate strength and full range of motion. LYMPHATICS: No significant lymphadenopathy is noted PSYCHIATRIC: Normal psychiatric evaluation. Limitations: no limitations Course Vital Signs 02/24/24 02/24/24 10:22 12:20 Temperature 97.5 F L 98.8 F Pulse Rate 89 84 Respiratory 22 18 Rate Blood Pressure 112/74 95/54 O2 Sat by Pulse 96 94 L Oximetry Medical Decision Making - Medical Decision Making EKG is interpreted by myself. EKG shows sinus rhythm at 91 bpm [place] interval 175 QRS is 122 QT interval 358 QTc is 407. Patient's EKG shows no ST segment ovation or depression. Was pt. sent in by a medical professional or institution (, PA, B[employer], urgent care, hospital, or [facility]...) When possible be specific @ -No Did you speak to anyone other than the patient for history (EMS, parent, family, police, friend...)? What history was obtained from this source @ -No Did you review nursing and triage notes (agree or disagree)? Why? @ -I reviewed and agree with nursing and triage notes Were old charts reviewed (outside hosp., previous admission, EMS record, old EKG, old radiological studies, urgent care reports/EKG's, [facility] records)? Report findings @ -I reviewed prior visits on this patient and reviewed the chest x-ray and it shows no change to today's chest x-ray. I also reviewed lab work to today's lab work troponins were not elevated there was no other acute abnormalities in comparison. Differential Diagnosis (chest pain, altered mental status, abdominal pain women, abdominal pain men, vaginal bleeding, weakness, fever, dyspnea, syncope, headache, dizziness, GI bleed, back pain, seizure, CVA, palpatations, mental health, musculoskeletal)? @ -Differential Chest Pain: Stable Angina, Unstable Angina, STEMI, NSTEMI Aortic Dissection, Pneumothorax, Musculoskeletal, Esophageal Spasm GERD, Cholecystitis, Pancreatitis, Zoster, thi s is not meant to be an all-inclusive list. EKG interpreted by me (3pts min.). @ -As above X-rays interpreted by me (1pt min.). @ -Chest x-ray shows no acute abnormality CT interpreted by me (1pt min.). @ -None done U/S interpreted by me (1pt. min.). @ -None done What testing was considered but not performed or refused? (CT, X-rays, U/S, labs)? Why? @ -None What meds were considered but not given or refused? Why? @ -None Did you discuss the management of the patient with other professionals (shamar phoenix i.e. , PA, [employer], lab, RT, psych nurse, social security assessor, extension associate, teacher, aviation safety officer, casework manager)? Give summary @ -[facility] admit the patient wrote admitting orders Was smoking cessation discussed for >3mins.? @ -No Was critical care preformed (if so, how long)? @ -No Were there social determinants of health that impacted care today? How? (Homelessness, low income, unemployed, alcoholism, drug addiction, transport ation, low edu. Level, literacy, decrease access to med. care, intermediate, rehab)? @ -No Was there de-escalation of care discussed even if they declined (Discuss DNR or withdrawal of care, Hospice)? DNR status @ -No What co-morbidities impacted this encounter? (DM, HTN, Smoking, COPD, CAD, Cancer, CVA, ARF, Chemo, Hep., AIDS, mental health diagnosis, sleep apnea, morbid obesity)? @ -None Was patient admitted / discharged? Hospital course, mention meds given and route, prescriptions, significant lab abnormalities, going to OR and other pertinent info. @ -Patient needed some Zofran for his nausea that helped. Patient continued to have some chest pain but it was improved. Patient was given Nitropaste and asked the emergency department. [facility] Undiagnosed new problem with uncertain prognosis? @ -No Drug Therapy requiring intensive monitoring for toxicity (Heparin, Nitro, Insulin, Cardizem)? @ -No Were any procedures done? @ -No Diagnosis/symptom? @ -Chest pain Acute, or Chronic, or Acute on Chronic? @ -Acute Uncomplicated (without systemic symptoms) or Complicated (systemic symptoms)? @ -Complicated Side effects of treatment? @ -No Exacerbation, Progression, or Severe Exacerbation? @ -No Poses a threat to life or bodily function? How? (Chest pain, [place], [place], pneumonia, PE, COPD, DKA, ARF, appy, cholecystitis, CVA, Diverticulitis, Homicidal, Suicidal, threat to staff... and all critical care pts) @ -Yes this could lead to an [place] and end organ dysfunction Diagnosis/symptom? @ -Epigastric abdominal pain Acute, or Chronic, or Acute on Chronic? @ -Acute Uncomplicated (without systemic symptoms) or Complicated (systemic symptoms)? @ -Complicated Side effects of treatment? @ -None Exacerbation, Progression, or Severe Exacerbation] @ -No Poses a threat to life or bodily function? @ -No - Lab Data Result diagrams: 02/24/24 12:16 02/24/24 12:16 Lab Results 02/24/24 02/24/24 02/24/24 Range/Units 12:07 12:16 12:16 WBC 9.9 (3.8-10.6) k/uL RBC 5.13 (4.30-5.90) m/uL Hgb 13.9 (13.0-17.5) gm/dL Hct 44.4 (39.0-53.0) % MCV 86.6 (80.0-100.0) fL MCH 27.2 (25.0-35.0) pg MCHC 31.4 (31.0-37.0) g/dL RDW 15.7 H (11.5-15.5) % Plt Count 202 (150-450) k/uL MPV 7.3 Neutrophils % 88 % Lymphocytes % 4 % Monocytes % 6 % Eosinophils % 1 % Basophils % 0 % Neutrophils # 8.7 H (1.3-7.7) k/uL Lymphocytes # 0.4 L (1.0-4.8) k/uL Monocytes # 0.6 (0-1.0) k/uL Eosinophils # 0.1 (0-0.7) k/uL Basophils # 0.0 (0-0.2) k/uL Hypochromasia Slight PT 10.1 (10.0-12.5) sec INR 0.9 (<1.2) APTT 27.3 (22.0-30.0) sec Sodium (137-145) mmol/L Potassium (3.5-5.1) mmol/L Chloride (98-107) mmol/L Carbon Dioxide (22-30) mmol/L Anion Gap mmol/L BUN (9-20) mg/dL Creatinine (0.66-1.25) mg/dL Est GFR (CKD-EPI)AfAm (>60 ml/min/1.73 sqM) Est GFR (CKD-EPI)NonAf (>60 ml/min/1.73 sqM) Glucose (74-99) mg/dL Calcium (8.4-10.2) mg/dL Magnesium (1.6-2.3) mg/dL Total Bilirubin (0.2-1.3) mg/dL AST (17-59) U/L ALT (4-49) U/L Alkaline Phosphatase (38-126) U/L Troponin I (0.000-0.034) ng/mL NT-Pro-B Natriuret Pep pg/mL Total Protein (6.3-8.2) g/dL Albumin (3.5-5.0) g/dL Lipase (23-300) U/L Influenza Type A (PCR) Not Detected (Not Detectd) Influenza Type B (PCR) Not Detected (Not Detectd) RSV (PCR) Not Detected (Not Detectd) SARS-CoV-2 (PCR) Not Detected (Not Detectd) 02/24/24 02/24/24 Range/Units 12:16 12:16 WBC (3.8-10.6) k/uL RBC (4.30-5.90) m/uL Hgb (13.0-17.5) gm/dL Hct (39.0-53.0) % MCV (80.0-100.0) fL MCH (25.0-35.0) pg MCHC (31.0-37.0) g/dL RDW (11.5-15.5) % Plt Count (150-450) k/uL MPV Neutrophils % % Lymphocytes % % Monocytes % % Eosinophils % % Basophils % % Neutrophils # (1.3-7.7) k/uL Lymphocytes # (1.0-4.8) k/uL Monocytes # (0-1.0) k/uL Eosinophils # (0-0.7) k/uL Basophils # (0-0.2) k/uL Hypochromasia PT (10.0-12.5) sec INR (<1.2) APTT (22.0-30.0) sec Sodium 136 L (137-145) mmol/L Potassium 4.3 (3.5-5.1) mmol/L Chloride 100 (98-107) mmol/L Carbon Dioxide 30 (22-30) mmol/L Anion Gap 6 mmol/L BUN 19 (9-20) mg/dL Creatinine 0.46 L (0.66-1.25) mg/dL Est GFR (CKD-EPI)AfAm >90 (>60 ml/min/1.73 sqM) Est GFR (CKD-EPI)NonAf >90 (>60 ml/min/1.73 sqM) Glucose 130 H (74-99) mg/dL Calcium 7.3 L (8.4-10.2) mg/dL Magnesium 1.6 (1.6-2.3) mg/dL Total Bilirubin 0.7 (0.2-1.3) mg/dL AST 26 (17-59) U/L ALT 18 (4-49) U/L Alkaline Phosphatase 98 (38-126) U/L Troponin I <0.012 (0.000-0.034) ng/mL NT-Pro-B Natriuret Pep 150 pg/mL Total Protein 5.5 L (6.3-8.2) g/dL Albumin 3.3 L (3.5-5.0) g/dL Lipase 123 (23-300) U/L Influenza Type A (PCR) (Not Detectd) Influenza Type B (PCR) (Not Detectd) RSV (PCR) (Not Detectd) SARS-CoV-2 (PCR) (Not Detectd) Disposition Clinical Impression: Chest pain, Epigastric abdominal pain Disposition: ADMITTED IP TO THIS HOSP Referrals: Alfredo Hope DO [Primary Care Provider] - 1-2 days Time of Disposition: 14:05
[2024-02-24] MEDS: ONDANSETRON 4 MG/2 ML VIAL IVP STA (12:16)
[2024-02-24] MEDS: ASPIRIN 81 MG PO STA (12:16)
[2024-02-24] MEDS: NITROGLYCERIN OINT 1 INCH/GM PACKET TOPICAL STA (12:17)
[2024-02-24 12:35] LABS: Basophils % (A) 0 %; Eosinophils # (A) 0.1 k/uL (0-0.7); Eosinophils % (A) 1 %; HCT 44.4 % (39.0-53.0); HGB 13.9 gm/dL (13.0-17.5); Hypochromasia Slight; Lymphocytes # (A) 0.4 k/uL (1.0-4.8); Lymphocytes % (A) 4 %; MCH 27.2 pg (25.0-35.0); MCHC 31.4 g/dL (31.0-37.0); MCV 86.6 fL (80.0-100.0); Mean Platelet Volume 7.3; Monocytes # (A) 0.6 k/uL (0-1.0); Monocytes % (A) 6 %; Neutrophils # (A) 8.7 k/uL (1.3-7.7); Neutrophils % (A) 88 %; Platelet Count 202 k/uL (150-450); RBC 5.13 m/uL (4.30-5.90); RDW 15.7 % (11.5-15.5); WBC 9.9 k/uL (3.8-10.6)
[2024-02-24 12:37] LABS: ALT 18 U/L (4-49); AST 26 U/L (17-59); African American GFR (CKD) >90 (>60 ml/min/1.73 sqM); Albumin 3.3 g/dL (3.5-5.0); Alkaline Phosphatase 98 U/L (38-126); Anion Gap 6 mmol/L; Blood Urea Nitrogen 19 mg/dL (9-20); Calcium 7.3 mg/dL (8.4-10.2); Carbon Dioxide 30 mmol/L (22-30); Chloride 100 mmol/L (98-107); Glucose 130 mg/dL (74-99); Lipase 123 U/L (23-300); Magnesium 1.6 mg/dL (1.6-2.3); Non-African American GFR(CKD) >90 (>60 ml/min/1.73 sqM); Potassium 4.3 mmol/L (3.5-5.1); Sodium 136 mmol/L (137-145); Total Bilirubin 0.7 mg/dL (0.2-1.3); Total Protein 5.5 g/dL (6.3-8.2)
[2024-02-24 12:43] LABS: NT-Pro-B-Type Natriuretic Pept 150 pg/mL
[2024-02-24 13:08] LABS: INR 0.9 (<1.2); Partial Thromboplastin Time 27.3 sec (22.0-30.0); Prothrombin Time 10.1 sec (10.0-12.5)
[2024-02-24] MEDS ORDERED: NITROGLYCERIN SL TABS 0.4 MG TAB SUBLINGUAL PRN (14:05)
[2024-02-24] MEDS: PANTOPRAZOLE 40 MG/10 ML VIAL IVP SCH (15:40)
[2024-02-24] MEDS: ALBUTEROL NEBULIZED 2.5 MG/3 ML INHALATION SCH (15:53)
[2024-02-24] MEDS: NITROGLYCERIN OINT 1 INCH/GM PACKET TOPICAL SCH (17:09)
[2024-02-24] MEDS ORDERED: NON FORMULARY DRUG (Albuterol Inhaler 90 MCG Puff) INHALATION SCH (20:00)
[2024-02-24] MEDS: SYMBICORT 160-4.5 MCG INHALER INHALATION SCH (21:04)
[2024-02-24] MEDS: METOPROLOL TARTRATE 25 MG TAB PO SCH (21:31)
[2024-02-24] MEDS: FAMOTIDINE 20 MG TAB PO SCH (21:31)
[2024-02-24] MEDS: APIXABAN 5 MG TAB PO SCH (21:31)
[2024-02-24] MEDS: FUROSEMIDE 40 MG TAB PO SCH (21:32)
[2024-02-24] MEDS: HYDROmorphone 0.5 MG/0.5 ML SYRINGE IVP PRN (21:38)
--- NOTE | 2024-02-24 22:45 | HP ---
HISTORY AND PHYSICAL CHIEF COMPLAINT: Chest pain. HISTORY OF PRESENT ILLNESS: This is a 58-year-old gentleman with past medical history of multiple medical problems, admitted with lower chest pain and upper abdominal pain. The pain felt like a heavy feeling according to him. The patient also had some belching also. The patient is morbidly obese and had multiple complex medical issues. The patient was admitted for further evaluation and treatment. Initial troponin is negative. PAST MEDICAL HISTORY: Reviewed include asthma, COPD, GERD, atrial fibrillation. Rest of the history and rest of the chart is also reviewed. HOME MEDICATIONS: Lasix. Doses and rest of medications reviewed. ALLERGIES: Imdur. FAMILY HISTORY: History of DVT in the family. SOCIAL HISTORY: Previous history of smoking. REVIEW OF SYSTEMS: A 14-point review is negative except as mentioned earlier. PHYSICAL EXAMINATION: VITAL SIGNS: Pulse is 83, blood pressure 98/64, respirations 20. HEENT: Conjunctivae normal. NECK: No JVD. CARDIOVASCULAR: S1, S2. RESPIRATIONS: Breath sounds diminished at the bases. A few scattered rhonchi. ABDOMEN: Soft, obese, nontender. No mass palpable. LEGS: No edema. NERVOUS SYSTEM: No focal deficit. SKIN: No ulcer, rash, bleeding. JOINTS: No active deforming arthropathy. LABORATORY DATA: Reviewed. ASSESSMENT: 1. Chest pain, possible unstable angina. 2. Possible gastroesophageal reflux disease. 3. History of asthma. 4. Chronic obstructive pulmonary disease. 5. Atrial fibrillation. 6. Degenerative joint disease. 7. Open endarterectomy. RECOMMENDATIONS AND DISCUSSION: In this 58-year-old gentleman, who presented with multiple complex medical issues, we will monitor the patient closely. Continue the current management and symptomatic treatment. Cardiology consultation, rule out myocardial infarction. Otherwise, resume the home medications, symptomatic treatment. Prognosis guarded because of multiple complex medical issues and further recommendations to follow. MMODL / IJN: [id number] /
[2024-02-25] MEDS ORDERED: SYMBICORT 160-4.5 MCG INHALER INHALATION SCH (08:00)
[2024-02-25] MEDS: IPRATROPIUM 0.5 MG/2.5 ML NEBU INHALATION SCH (08:14)
[2024-02-25 08:28] VITALS: BP 104/67; RESP 19; TEMP 97.6
[2024-02-25 08:32] LABS: Basophils # (A) 0.02 X 10*3/uL (0.00-0.10); Basophils % (A) 0.2 %; Eosinophils % (A) 1.1 %; HCT 41.3 % (39.6-50.0); Lymphocytes # (A) 0.78 X 10*3/uL (0.90-5.00); Lymphocytes % (A) 8.5 %; MCH 27.1 pg (27.0-32.0); MCHC 31.5 g/dL (32.0-37.0); Mean Platelet Volume 9.6 FL (9.5-12.2); Monocytes # (A) 0.91 X 10*3/uL (0.20-1.00); Monocytes % (A) 9.9 %; NRBC Per 100 WBC 0 X 10*3/uL (0.00-0.01); Neutrophils # (A) 7.34 X 10*3/uL (1.80-7.70); Platelet Count 204 X 10*3/uL (140-440); RDW 15.9 % (11.5-14.5); WBC 9.18 X 10*3/uL (4.50-10.00)
[2024-02-25 08:39] LABS: BUN/Creat Ratio 23.83 Ratio (12.00-20.00); Blood Urea Nitrogen 14.3 mg/dL (9.0-27.0); Calcium 7.7 mg/dL (8.7-10.3); Carbon Dioxide 29.3 mmol/L (21.6-31.8); Chloride 96 mmol/L (96-109); Chol/HDL Ratio 3.11 Ratio; Glucose 149 mg/dL (70-110); LDL Cholesterol,Calculated 53.4 mg/dL (0.0-131.0); Potassium 3.7 mmol/L (3.5-5.5); Sodium 135 mmol/L (135-145); VLDL Calculation 19.16 mg/dL (5.00-40.00)
[2024-02-25] MEDS: ASPIRIN 325 MG TAB PO SCH (09:27)
[2024-02-25] MEDS: MELOXICAM 7.5 MG TAB PO SCH (09:28)
[2024-02-25] MEDS: SPIRONOLACTONE 25 MG TAB PO SCH (09:28)
--- NOTE | 2024-02-25 10:32 | P.CRDCN ---
History of Present Illness Consult date: 02/25/24 Consult reason: chest pain History of present illness: History of present illness: This is a 58-year-old male patient of Dr. Alexis with past medical history of chronic kidney disease, morbid obesity with BMI of 62, obstructive sleep apnea unable to tolerate CPAP, asthma, chronic lower extremity edema, severe LVH on prior echocardiogram, paroxysmal atrial fibrillation, chronic diastolic heart failure. We have been asked to evaluate the patient for chest pain. Patient presented to the emergency center due to chest pain that started about 11 PM along with epigastric abdominal discomfort. He also had nausea. Patient has chronic dyspnea on exertion. No fever. EKG sinus rhythm with right bundle branch block Chest x-ray: Low lung volumes with generalized hazy appearance which could represent atelectasis versus pulmonary edema. WBC 9.1, hemoglobin 13, platelet count 204. INR 0.9. Troponins negative x 3. Sodium 135, potassium 3.7, creatinine 0.6. Triglycerides 95, cholesterol 107, LDL 53, HDL 34. Influenza A, influenza B, RSV, COVID-19 not detected. Home cardiac medications: Eliquis 5 mg twice daily, aspirin 81 mg daily, Lasix 40 mg twice daily, Lopressor 25 mg twice daily, spironolactone 25 mg daily. Echocardiogram performed on 02/07/2024 reveals EF 55 to 60%, severe increased left ventricular wall thickness. Technically difficult study. Cardiac catheterization performed on 06/17/2023 revealed normal coronary arteries . Minimally elevated left-sided filling pressures with relatively normal right- sided pressures. Normal cardiac output, cardiac index. Review Of Systems: At the time of my exam: CONSTITUTIONAL: Denies fever or chills. HEENT: Denies blurred vision, vision changes, or eye pain. Denies hemoptysis CARDIOVASCULAR: Denies chest pain. Denies orthopnea. Denies PND. Denies palpitations RESPIRATORY: Denies shortness of breath. GASTROINTESTINAL: Reports abdominal pain. Denies nausea or vomiting. HEMATOLOGIC: Denies bleeding disorders. GENITOURINARY: Denies any blood in urine. SKIN: Denies pruitis. Denies rash. Physical examination: Gen: This is a morbidly obese 58-year-old male in no acute distress VS: reviewed blood pressure 104/67, heart rate 82, pulse ox 95% on 2 L nasal cannula. HEENT: Head is atraumatic, normocephalic. Pupils equal, round. Sclerae is anicteric. NECK: Supple. No JVD. LUNGS: Clear to auscultation. Mild wheezing. No intercostal retractions. HEART: Regular rate and rhythm. No murmur. ABDOMEN: Soft No tenderness. EXTREMITIES: Mild chronic pedal edema. No calf tenderness. NEUROLOGICAL: Patient is awake, alert and oriented x3. Assessment: Atypical chest pain, acute coronary syndrome ruled out Abdominal pain Paroxysmal atrial fibrillation Chronic diastolic heart failure Severe LVH Morbid obesity Asthma Plan: Resume patient's home cardiac medications No further cardiac workup at this time Patient may be discharged home and follow-up with Dr. Alexis in 1 to 2 weeks Cardiology will sign off this case and follow on an as-needed basis. Please reconsult for any new concerns. Further recommendations to follow based upon clinical course Thank you kindly for this consultation. Nurse practitioner note has been reviewed, I agree with documented findings and plan of care. Patient was seen and examined. Past Medical History Past Medical History: Atrial Fibrillation, Asthma, COPD, GERD/Reflux, Osteoarthritis (OA), Pneumonia, Sleep Apnea/CPAP/BIPAP Additional Past Medical History / Comment(s): JEANIE/unable to tolerate cpap, pneumonias, bronchitis, chronic lower extremity lymphedema/redness/scabs, arthritis in multiple joints/chronic pain/chronic back pain History of Any Multi-Drug Resistant Organisms: None Reported Past Surgical History: Adenoidectomy, Appendectomy, Orthopedic Surgery, Tonsillectomy Additional Past Surgical History / Comment(s): Bilateral knee arthroscopy, UVPPP, carpal tunnel surgery, right shoulder surgery, colonoscopy/benign polypectomy. Past Anesthesia/Blood Transfusion Reactions: No Reported Reaction Past Psychological History: No Psychological Hx Reported Additional Psychological History / Comment(s): Pt has a brother/nephew who live with him. Pt uses crutches to ambulate. Smoking Status: Former smoker Past Alcohol Use History: None Reported Additional Past Alcohol Use History / Comment(s): Pt started smoking in 1979 and quit smoking 12/09/2006. Past Drug Use History: None Reported - Past Family History Father History Unknown: Yes Family Medical History: Cancer Additional Family Medical History / Comment(s): . Mother History Unknown: Yes Family Medical History: Deep Vein Thrombosis (DVT) Medications and Allergies Home Medications Medication Instructions Recorded Confirmed Type Spironolactone [Aldactone] 25 mg PO DAILY 12/25/20 02/24/24 History Meloxicam 7.5 mg PO DAILY 08/05/21 02/24/24 History Umeclidinium [place] [Incruse 1 puff INHALATION RT-DAILY 12/18/23 02/24/24 History Ellipta] Albuterol Inhaler [Ventolin Hfa 1 - 2 puff INHALATION RT-Q6H PRN 02/06/24 02/24/24 History Inhaler] Apixaban [Eliquis] 5 mg PO BID 02/06/24 02/24/24 History Budesonide/Formoterol Fumarate 1 puff INHALATION RT-DAILY 02/06/24 02/24/24 History [Breyna 160-4.5 Mcg Inhaler] Fluticasone Propion/Salmeterol 2 puff INHALATION RT-BID 02/06/24 02/24/24 History [Advair Hfa 230-21 Mcg Inhaler] Metoprolol Tartrate [Lopressor] 25 mg PO BID 02/06/24 02/24/24 History Aspirin 81 mg PO DAILY tab 02/07/24 02/24/24 Rx Famotidine [Pepcid] 20 mg PO BID #60 tablet 02/07/24 02/24/24 Rx Furosemide [Lasix] 40 mg PO BID 02/24/24 02/24/24 History Allergies Allergy/AdvReac Type Severity Reaction Status Date / Time isosorbide [From Imdur] AdvReac headache & Verified 02/24/24 11:08 blurred vision metoprolol [From Toprol XL] AdvReac headache & Verified 02/24/24 11:08 blurred vision Physical Exam Vitals: Vital Signs Temp Pulse Pulse Resp BP BP Pulse Ox 02/25/24 07:10 97.6 F 82 19 104/67 95 02/25/24 03:41 97.5 F L 83 20 143/82 94 L 02/24/24 23:35 98.2 F 94 20 126/70 94 L 02/24/24 21:36 93 20 122/66 93 L 02/24/24 21:20 98 18 116/70 90 L 02/24/24 21:14 91 02/24/24 21:05 95 02/24/24 17:10 98.0 F 93 20 104/69 94 L 02/24/24 15:53 87 02/24/24 15:45 98.5 F 90 20 104/61 94 L 02/24/24 14:37 98 F 83 20 98/64 95 02/24/24 12:20 98.8 F 84 18 95/54 94 L 02/24/24 10:22 97.5 F L 89 22 112/74 96 Intake and Output 02/24/24 02/25/24 02/25/24 22:59 06:59 14:59 Other: # Voids 1 Weight 190.509 kg Results 02/25/24 04:11 02/25/24 04:11 Cardiac Enzymes 02/24/24 02/24/24 02/24/24 Range/Units 12:16 12:16 14:58 AST 26 (17-59) U/L Troponin I <0.012 <0.012 (0.000-0.034) ng/mL 02/24/24 Range/Units 18:37 AST (17-59) U/L Troponin I <0.012 (0.000-0.034) ng/mL Coagulation 02/24/24 Range/Units 12:16 PT 10.1 (10.0-12.5) sec APTT 27.3 (22.0-30.0) sec CBC 02/24/24 Range/Units 12:16 WBC 9.9 (3.8-10.6) k/uL RBC 5.13 (4.30-5.90) m/uL Hgb 13.9 (13.0-17.5) gm/dL Hct 44.4 (39.0-53.0) % Plt Count 202 (150-450) k/uL Comprehensive Metabolic Panel 02/24/24 Range/Units 12:16 Sodium 136 L (137-145) mmol/L Potassium 4.3 (3.5-5.1) mmol/L Chloride 100 (98-107) mmol/L Carbon Dioxide 30 (22-30) mmol/L BUN 19 (9-20) mg/dL Creatinine 0.46 L (0.66-1.25) mg/dL Glucose 130 H (74-99) mg/dL Calcium 7.3 L (8.4-10.2) mg/dL AST 26 (17-59) U/L ALT 18 (4-49) U/L Alkaline Phosphatase 98 (38-126) U/L Total Protein 5.5 L (6.3-8.2) g/dL Albumin 3.3 L (3.5-5.0) g/dL Current Medications Generic Name Dose Route Start Last Admin Trade Name Freq PRN Reason Stop Dose Admin Albuterol Sulfate 2.5 mg 02/24/24 16:00 02/24/24 21:04 Albuterol Nebulized 2.5 Mg/3 Ml INHALATION 2.5 mg RT-QID TAMELA Administration Apixaban 5 mg 02/24/24 21:00 02/24/24 21:31 Apixaban 5 Mg Tab PO 5 mg BID [facility] Administration Protocol Aspirin 325 mg 02/25/24 09:00 Aspirin 325 Mg Tab PO DAILY [facility] Budesonide/Formoterol Fumarate 2 puff 02/24/24 20:00 02/24/24 21:04 Symbicort 160-4.5 Mcg Inhaler INHALATION 2 puff RT-BID TAMELA Administration Famotidine 20 mg 02/24/24 21:00 02/24/24 21:31 Famotidine 20 Mg Tab PO 20 mg BID TAMELA Administration Furosemide 40 mg 02/24/24 21:00 02/24/24 21:32 Furosemide 40 Mg Tab PO 40 mg BID [facility] Administration Hydromorphone HCl 0.5 mg 02/24/24 15:24 02/24/24 21:38 Hydromorphone 0.5 Mg/0.5 Ml Syringe IVP 0.5 mg Q4HR PRN Administration Severe Pain (Scale 7 to 10) Ipratropium [place] 0.5 mg 02/25/24 08:00 Ipratropium 0.5 Mg/2.5 Ml Nebu INHALATION RT-QID [facility] Meloxicam 7.5 mg 02/25/24 09:00 Meloxicam 7.5 Mg Tab PO DAILY [facility] Metoprolol Tartrate 25 mg 02/24/24 21:00 02/24/24 21:31 Metoprolol Tartrate 25 Mg Tab PO 25 mg BID [facility] Administration Nitroglycerin 0.4 mg 02/24/24 14:05 Nitroglycerin Sl Tabs 0.4 Mg Tab SUBLINGUAL Q5M PRN Chest Pain Nitroglycerin 1 inch 02/24/24 18:00 02/25/24 06:16 Nitroglycerin Oint 1 Inch/Gm Packet TOPICAL 1 inch Q6HR TAMELA Administration Pantoprazole Sodium 40 mg 02/24/24 16:00 02/24/24 21:33 Pantoprazole 40 Mg/10 Ml Vial IVP 40 mg BID TAMELA Administration Spironolactone 25 mg 02/25/24 09:00 Spironolactone 25 Mg Tab PO DAILY TAMELA Intake and Output 02/24/24 02/25/24 02/25/24 22:59 06:59 14:59 Other: # Voids 1 Weight 190.509 kg 02/24/24 12:16 02/24/24 12:16
[2024-02-25 12:11] VITALS: PULSE 78
--- NOTE | 2024-03-02 06:56 | P.DS ---
Providers Date of admission: 02/24/24 14:05 Expected date of discharge: 02/25/24 Attending physician: Moses Zamarripa MD Consults: 02/24/24 14:05 Consult Physician Urgent Consulting Provider: [facility] Consult Reason/Comments: Chest pain Do you want consulting provider notified?: Yes Primary care physician[facility] Course: Final diagnosis Chest pain, possible unstable angina, ACS ruled out Possible gastroesophageal reflux disease History of asthma, not in exacerbation Chronic obstructive pulmonary disease Atrial fibrillation history History of degenerative joint disease History of open endarterectomy Morbid obesity with a BMI of 62.0 GI prophylaxis DVT prophylaxis Full code Discharge disposition Patient is being discharged in a stable condition with guarded prognosis to home. Patient will follow-up with Dr. Hope in the outpatient setting upon discharge. Patient is to continue with compliance of cardiac medications and outpatient follow-up with Dr. Rosie holloway as scheduled. Total time taken is greater than 35 minutes. Hospital course This is a 58-year-old male who was recently admitted with chest pain being closely monitored with cardiology following. Medications reviewed and resumed as appropriate and has been cleared by cardiology recommending outpatient follow-up. No plans for immediate intervention at this time as patient has had recent workup. Stressed the importance of medication compliance and outpatient follow-up. Please refer to cardiology notes for further HPI. Currently no reports of chest pain, shortness of breath, or palpitations. Patient is afebrile. No reports of nausea or vomiting and patient is tolerating diet. Patient will be discharged home today. Guarded prognosis and high risk for readmissions given patient's significant comorbidities Physical exam: Gen: This is a 58-year-old male who is awake, alert and oriented x 3, well- developed, well-nourished, morbidly obese HEENT: Head is atraumatic, normocephalic. Pupils equal, round. Sclerae is anicteric. NECK: Supple. No JVD. No lymphadenopathy. No thyromegaly. LUNGS: Diminished breath sounds bilaterally otherwise clear to auscultation. No wheezes or rhonchi. No intercostal retractions. HEART: S1, S2 are muffled ABDOMEN: Soft. Obese bowel sounds are present. No masses. No tenderness. EXTREMITIES: No pedal edema. No calf tenderness. Chronic lower extremity edema bilaterally NEUROLOGICAL: Patient is awake, alert and oriented x3. Cranial nerves 2 through 12 are grossly intact. Please refer to medication reconciliation sheet for a list of medications. The impression and plan of care has been dictated by Cherry Cuellar, Nurse Practitioner as directed. Dr. Fly MD I have performed a history and examination and MDM of this patient, discussed the same with the dictator, and agree with the dictator's assessment and plan as written ,documented as a scribe. Based on total visit time, I have performed more than 50% of the visit. Patient Condition at Discharge: Fair Plan - Discharge Summary New Discharge Prescriptions: New Nitroglycerin Sl Tabs [Nitrostat] 0.4 mg SUBLINGUAL Q5M PRN #20 tab PRN Reason: Chest Pain Continue Spironolactone [Aldactone] 25 mg PO DAILY Umeclidinium [place] [Incruse Ellipta] 1 puff INHALATION RT-DAILY Metoprolol Tartrate [Lopressor] 25 mg PO BID Budesonide/Formoterol Fumarate [Breyna 160-4.5 Mcg Inhaler] 1 puff INHALATION RT-DAILY Aspirin 81 mg PO DAILY tab Famotidine [Pepcid] 20 mg PO BID #60 tablet Furosemide [Lasix] 40 mg PO BID Meloxicam 7.5 mg PO DAILY Apixaban [Eliquis] 5 mg PO BID Albuterol Inhaler [Ventolin Hfa Inhaler] 1 - 2 puff INHALATION RT-Q6H PRN PRN Reason: Shortness Of Breath Or Wheezing Fluticasone Propion/Salmeterol [Advair Hfa 230-21 Mcg Inhaler] 2 puff INHALATION RT-BID Discharge Medication List Spironolactone [Aldactone] 25 mg PO DAILY 12/25/20 [History] Meloxicam 7.5 mg PO DAILY 08/05/21 [History] Umeclidinium [place] [Incruse Ellipta] 1 puff INHALATION RT-DAILY 12/18/23 [History] Albuterol Inhaler [Ventolin Hfa Inhaler] 1 - 2 puff INHALATION RT-Q6H PRN 02/06/24 [History] Apixaban [Eliquis] 5 mg PO BID 02/06/24 [History] Budesonide/Formoterol Fumarate [Breyna 160-4.5 Mcg Inhaler] 1 puff INHALATION RT-DAILY 02/06/24 [History] Fluticasone Propion/Salmeterol [Advair Hfa 230-21 Mcg Inhaler] 2 puff INHALATION RT-BID 02/06/24 [History] Metoprolol Tartrate [Lopressor] 25 mg PO BID 02/06/24 [History] Aspirin 81 mg PO DAILY tab 02/07/24 [Rx] Famotidine [Pepcid] 20 mg PO BID #60 tablet 02/07/24 [Rx] Furosemide [Lasix] 40 mg PO BID 02/24/24 [History] Nitroglycerin Sl Tabs [Nitrostat] 0.4 mg SUBLINGUAL Q5M PRN #20 tab 02/25/24 [Rx] Follow up Appointment(s)/Referral(s): Alfredo Hope DO [Primary Care Provider] - 1-2 days Juma Velez MD [STAFF PHYSICIAN] - 03/07/24 9:00 am Discharge Disposition: HOME SELF-CARE
== END 2024-02-25 14:17 | disposition home or self-care (01) ==
LOC: EC 10:21 → 6NMEDSUR 14:05
PROVIDERS: ADMIT Internal Medicine; ATTEND Internal Medicine
DX: R07.89 Other chest pain (principal); R10.13 Epigastric pain; I50.32 Chronic diastolic (congestive) heart failure; I48.0 Paroxysmal atrial fibrillation; I51.7 Cardiomegaly; J44.89 Other specified chronic obstructive pulmonary disease; G47.33 Obstructive sleep apnea (adult) (pediatric); I45.10 Unspecified right bundle-branch block; R11.2 Nausea with vomiting, unspecified; R14.2 Eructation; M19.90 Unspecified osteoarthritis, unspecified site; E66.01 Morbid (severe) obesity due to excess calories; Z68.44 Body mass index [BMI] 60.0-69.9, adult; Z79.01 Long term (current) use of anticoagulants; Z79.1 Long term (current) use of non-steroidal anti-inflammatories (NSAID); Z79.51 Long term (current) use of inhaled steroids; Z79.82 Long term (current) use of aspirin; Z79.899 Other long term (current) drug therapy; Z88.8 Allergy status to other drugs, medicaments and biological substances; Z87.891 Personal history of nicotine dependence; Z86.79 Personal history of other diseases of the circulatory system; Z98.890 Other specified postprocedural states; Z11.52 Encounter for screening for COVID-19; Z11.59 Encounter for screening for other viral diseases
CPT/HCPCS: 96376 ×2; 96374; 96375; 99285; 36415; 94640 ×4; 94760; 93005; 83880; 80061; 80053; 80048; 83690; 83735; 84484; 85025 ×2; 85610; 85730; 87636; 71046; G0378 ×2; J2405; C9113 ×2; J1170

== ENCOUNTER 2024-03-25 16:31 | Inpatient (IN) | payer MEDICARE, OTHER ==
--- NOTE | 2024-03-25 16:42 | ED ---
Chest Pain HPI - General Chief Complaint: Chest Pain Stated Complaint: chest pain Time Seen by Provider: 03/25/24 16:41 Source: patient, RN notes reviewed, old records reviewed Mode of arrival: ambulatory Limitations: no limitations - History of Present Illness Initial Comments: This is a 58 male to ER for evaluation of severe shortness of breath or chest pain. Patient has longstanding cardiac history with severe obesity and recurrent evaluation and admission for significant weakness at home. Patient states chest pain and shortness of breath got worse throughout the day today, patient is without fever or other complaint MD Complaint: chest pain -: days(s) Onset: during rest, during exertion Pain Location: substernal, left chest Pain Radiation: none Severity: moderate Severity scale (1-10): 4 Quality: tightness, aching Consistency: constant Improves With: nothing Worsens With: nothing Anginal Symptoms: nausea, vomiting Treatments Prior to Arrival: none - Related Data Home Medications Medication Instructions Recorded Confirmed Spironolactone [Aldactone] 25 mg PO DAILY 12/25/20 03/26/24 Meloxicam 7.5 mg PO DAILY 08/05/21 03/26/24 Umeclidinium [place] [Incruse 1 puff INHALATION RT-DAILY 12/18/23 03/26/24 Ellipta] Albuterol Inhaler [Ventolin Hfa 1 - 2 puff INHALATION RT-Q6H PRN 02/06/24 03/26/24 Inhaler] Apixaban [Eliquis] 5 mg PO BID 02/06/24 03/26/24 Budesonide/Formoterol Fumarate 1 puff INHALATION RT-DAILY 02/06/24 03/26/24 [Breyna 160-4.5 Mcg Inhaler] Fluticasone Propion/Salmeterol 2 puff INHALATION RT-BID 02/06/24 03/26/24 [Advair Hfa 230-21 Mcg Inhaler] Furosemide [Lasix] 80 mg PO DAILY 02/24/24 03/26/24 Previous Rx's Medication Instructions Recorded Nitroglycerin Sl Tabs [Nitrostat] 0.4 mg SUBLINGUAL Q5M PRN #20 tab 02/25/24 Cephalexin [Keflex] 500 mg PO QID #12 cap 04/01/24 Clotrimazole Cream [Lotrimin Cream] 1 applic TOPICAL BID #1 each 04/01/24 Dapagliflozin Propanediol [Farxiga] 10 mg PO DAILY #30 tab 04/01/24 Metoprolol Succinate (ER) [Toprol 50 mg PO DAILY #30 tab 04/01/24 XL] Pantoprazole [Protonix] 40 mg PO AC-BRKFST #30 tab 04/01/24 SILVER sulfADIAZINE CREAM 1 applic TOPICAL BID each 04/01/24 [Silvadene Cream] Allergies Allergy/AdvReac Type Severity Reaction Status Date / Time isosorbide [From Imdur] AdvReac headache & Verified 03/26/24 10:26 blurred vision metoprolol [From Toprol XL] AdvReac headache & Verified 03/26/24 10:26 blurred vision Review of Systems ROS Statement: Those systems with pertinent positive or pertinent negative responses have been documented in the HPI. ROS Other: All systems not noted in ROS Statement are negative. EKG Findings - EKG Comments: EKG Findings:: EKG is sinus 82 PA 137 QRS 124 QTc 460 Past Medical History Past Medical History: Atrial Fibrillation, Asthma, COPD, GERD/Reflux, Osteoarthritis (OA), Pneumonia, Sleep Apnea/CPAP/BIPAP Additional Past Medical History / Comment(s): JEANIE/unable to tolerate cpap, pneumonias, bronchitis, chronic lower extremity lymphedema/redness/scabs, arthritis in multiple joints/chronic pain/chronic back pain History of Any Multi-Drug Resistant Organisms: None Reported Past Surgical History: Adenoidectomy, Appendectomy, Orthopedic Surgery, Tonsillectomy Additional Past Surgical History / Comment(s): Bilateral knee arthroscopy, UVPPP, carpal tunnel surgery, right shoulder surgery, colonoscopy/benign polypectomy. Past Anesthesia/Blood Transfusion Reactions: No Reported Reaction Past Psychological History: No Psychological Hx Reported Smoking Status: Former smoker Past Alcohol Use History: None Reported Past Drug Use History: None Reported - Past Family History Father History Unknown: Yes Family Medical History: Cancer Additional Family Medical History / Comment(s): . Mother History Unknown: Yes Family Medical History: Deep Vein Thrombosis (DVT) General Exam Limitations: no limitations General appearance: alert, in no apparent distress Head exam: Present: atraumatic, normocephalic, normal inspection Eye exam: Present: normal appearance, PERRL, EOMI. Absent: scleral icterus, conjunctival injection, periorbital swelling ENT exam: Present: normal exam, mucous membranes moist Neck exam: Present: normal inspection. Absent: tenderness, meningismus, lymphadenopathy Respiratory exam: Present: normal lung sounds bilaterally. Absent: respiratory distress, wheezes, rales, rhonchi, stridor Cardiovascular Exam: Present: regular rate, normal rhythm, normal heart sounds. Absent: systolic murmur, diastolic murmur, rubs, gallop, clicks GI/Abdominal exam: Present: soft, normal bowel sounds. Absent: distended, tenderness, guarding, rebound, rigid Extremities exam: Present: normal inspection, full ROM, normal capillary refill. Absent: tenderness, pedal edema, joint swelling, calf tenderness Back exam: Present: normal inspection Neurological exam: Present: alert, oriented X3, CN II-XII intact Psychiatric exam: Present: normal affect, normal mood Skin exam: Present: warm, dry, intact, normal color. Absent: rash Course Vital Signs 03/25/24 03/25/24 03/25/24 16:32 17:33 17:35 Temperature 98.4 F 98.5 F Pulse Rate 82 81 Pulse Rate [ 79 Fern Gatherer ] Respiratory 18 24 Rate Blood Pressure 105/68 122/63 Blood Pressure [Right Arm] O2 Sat by Pulse 94 L 92 L Oximetry 03/25/24 03/26/24 03/26/24 18:02 00:00 04:00 Temperature 98.4 F Pulse Rate 85 84 82 Pulse Rate [ Fern [place]herer ] Respiratory 22 22 22 Rate Blood Pressure 122/63 137/70 123/41 Blood Pressure [Right Arm] O2 Sat by Pulse 93 L 96 95 Oximetry 03/26/24 03/26/24 06:48 08:00 Temperature 97.9 F Pulse Rate 72 Pulse Rate [ 82 Fern Gatherer ] Respiratory 20 18 Rate Blood Pressure 144/82 Blood Pressure 109/82 [Right Arm] O2 Sat by Pulse 95 93 L Oximetry - Reevaluation(s) Reevaluation #1: 03/25/24 16:42 Medical records reviewed Reevaluation #2: 03/25/24 19:16 Patient has no significant change in symptoms here in the ER Reevaluation #3: 03/25/24 19:16 Patient informed of results and questions answered Reevaluation #4: Was pt. sent in by a medical professional or institution (, PA, CLOTHES PRESSER, urgent care, hospital, or long term...) When possible be specific @ -no Did you speak to anyone other than the patient for history (EMS, parent, family, police, friend...)? What history was obtained from this source @ -no Did you review nursing and triage notes (agree or disagree)? Why? @ -agree Are old charts reviewed (outside hosp., previous admission, EMS record, old EKG, old radiological studies, urgent care reports/EKG's, long term records)? Report findings @ -yes Differential Diagnosis (chest pain, altered mental status, abdominal pain women, abdominal pain men, vaginal bleeding, weakness, fever, dyspnea, syncope, headache, dizziness, GI bleed, back pain, seizure, CVA, palpatations, mental health, musculoskeletal)? @ -prior EKG interpreted by me (3pts min.). @ -yes X-rays interpreted by me (1pt min.). @ -yes significant pulmonary edema CT interpreted by me (1pt min.). @ -no U/S interpreted by me (1pt. min.). @ -no What testing was considered but not performed or refused? (CT, X-rays, U/S, labs)? Why? @ -none What meds were considered but not given or refused? Why? @ -none Did you discuss the management of the patient with other professionals (professionals i.e. , PA, CLOTHES PRESSER, lab, RT, psych nurse, nursing home social worker, glassware finisher, teacher, ground nuclear weapons assembly officer, therapeutic case manager)? Give summary @ -no Was smoking cessation discussed for >3mins.? @ -no Was critical care preformed (if so, how long)? @ -yes31 Were there social determinants of health that impacted care today? How? (Homelessness, low income, unemployed, alcoholism, drug addiction, transportation, low edu. Level, literacy, decrease access to med. care, skilled nursing, rehab)? @ -none Was there de-escalation of care discussed even if they declined (Discuss DNR or withdrawal of care, Hospice)? DNR status @ -no What co-morbidities impacted this encounter? (DM, HTN, Smoking, COPD, CAD, Cancer, CVA, ARF, Chemo, Hep., AIDS, mental health diagnosis, sleep apnea, morbid obesity)? @ -none Was patient admitted / discharged? Hospital course, mention meds given and route, prescriptions, significant lab abnormalities, going to OR and other pertinent info. @ - 58 male to ER for evaluation today. Patient presents for evaluation of severe shortness of breath CHF pulmonary edema patient will be admitted for cardiac evaluation and treatment Admitted Undiagnosed new problem with uncertain prognosis? @ -no Drug Therapy requiring intensive monitoring for toxicity (Heparin, Nitro, Insulin, Cardizem)? @ -no Were any procedures done? @ -no Diagnosis/symptom? @ -Significant CHF and pulmonary edema Acute, or Chronic, or Acute on Chronic? @ -Acute Uncomplicated (without systemic symptoms) or Complicated (systemic symptoms)? @ -Complicated Side effects of treatment? @ -no Exacerbation, Progression, or Severe Exacerbation? @ -exacerbation Poses a threat to life or bodily function? How? (Chest pain, USA, NC, pneumonia, PE, COPD, DKA, ARF, appy, cholecystitis, CVA, Diverticulitis, Homicidal, Suicidal, threat to staff... and all critical care pts) @ -yes with CHF Reevaluation #5: Differential Chest Pain: Stable Angina, Unstable Angina, STEMI, NSTEMI Aortic Dissection, Pneumothorax, Musculoskeletal, Esophageal Spasm GERD, Cholecystitis, Pancreatitis, Zoster, this is not meant to be an all-inclusive list. - Consultations Consultation #1: Spoke with [facility] who agrees to admit this patient Chest Pain MDM - MDM 58 male to ER for evaluation today. Patient midstate for evaluation of severe shortness of breath CHF pulmonary edema patient will be admitted for cardiac evaluation and treatment Critical Care Time Critical Care Time: Yes Total Critical Care Time: 31 Disposition Clinical Impression: COPD (chronic obstructive pulmonary disease), Acute exacerbation of chronic ob structive airways disease, Dyspnea, Chest pain, CHF (congestive heart failure), Pulmonary edema, Obesity Disposition: ADMITTED IP TO THIS HOSP Condition: Serious Is patient prescribed a controlled substance at d/c from ED?: No Time of Disposition: 19:00
--- NOTE | 2024-03-25 17:24 | XR ---
EXAMINATION TYPE: XR chest 2V DATE OF EXAM: 03/25/2024 5:17 PM CLINICAL INDICATION:Male, 58 years old with history of Chest Pain; COMPARISON: Chest radiographs from 02/24/2024 TECHNIQUE: XR chest 2V Frontal and lateral views of the chest. FINDINGS: Lungs/Pleura: There is no evidence of pleural effusion, focal consolidation, or pneumothorax. Pulmonary vascularity: Pulmonary vascular congestion. Heart/mediastinum: Cardiomediastinal silhouette is enlarged and stable. Musculoskeletal: No acute osseous pathology. IMPRESSION: Cardiomegaly and mild pulmonary vascular congestion. Correlate with BNP for congestive heart failure.
[2024-03-25 18:09] LABS: Basophils % (A) 0 %; Eosinophils # (A) 0.3 k/uL (0-0.7); Eosinophils % (A) 3 %; HCT 40.6 % (39.0-53.0); HGB 12.6 gm/dL (13.0-17.5); Hypochromasia Slight; Lymphocytes # (A) 1.2 k/uL (1.0-4.8); Lymphocytes % (A) 11 %; MCH 26.8 pg (25.0-35.0); MCHC 31.2 g/dL (31.0-37.0); MCV 85.9 fL (80.0-100.0); Mean Platelet Volume 7.6; Monocytes # (A) 0.7 k/uL (0-1.0); Monocytes % (A) 7 %; Neutrophils # (A) 8.2 k/uL (1.3-7.7); Neutrophils % (A) 77 %; Platelet Count 276 k/uL (150-450); RBC 4.72 m/uL (4.30-5.90); RDW 15.1 % (11.5-15.5); WBC 10.6 k/uL (3.8-10.6)
[2024-03-25 18:19] LABS: INR 0.9 (<1.2); Partial Thromboplastin Time 26.5 sec (22.0-30.0); Prothrombin Time 9.8 sec (10.0-12.5)
[2024-03-25 18:28] LABS: ALT 18 U/L (4-49); AST 28 U/L (17-59); African American GFR (CKD) >90 (>60 ml/min/1.73 sqM); Albumin 3.4 g/dL (3.5-5.0); Alkaline Phosphatase 81 U/L (38-126); Anion Gap 8 mmol/L; Blood Urea Nitrogen 21 mg/dL (9-20); Calcium 8.8 mg/dL (8.4-10.2); Carbon Dioxide 29 mmol/L (22-30); Chloride 99 mmol/L (98-107); Glucose 186 mg/dL (74-99); Lipase 157 U/L (23-300); Magnesium 1.9 mg/dL (1.6-2.3); Non-African American GFR(CKD) >90 (>60 ml/min/1.73 sqM); Sodium 136 mmol/L (137-145); Total Bilirubin 0.5 mg/dL (0.2-1.3); Total Protein 5.9 g/dL (6.3-8.2)
[2024-03-25 18:31] LABS: NT-Pro-B-Type Natriuretic Pept 191 pg/mL
[2024-03-25 18:35] LABS: Potassium 4.4 mmol/L (3.5-5.1)
[2024-03-25] MEDS ORDERED: ONDANSETRON 4 MG/2 ML VIAL IVP PRN (19:14)
[2024-03-25] MEDS ORDERED: NALOXONE 0.4 MG/ML 1 ML VIAL IV PRN (19:14)
[2024-03-26] MEDS: MORPHINE SULFATE 4 MG/ML SYRINGE IV PRN (00:33)
--- NOTE | 2024-03-26 08:50 | P.CRDCN ---
History of Present Illness Consult date: 03/26/24 History of present illness: HISTORY OF PRESENTING ILLNESS 58-year-old male known to Dr. Alexis past medical history of morbid obesity, BMI 62, JEANIE not compliant with CPAP, chronic lower extremity edema, severe LVH from prior echo, paroxysmal atrial fibrillation, chronic diastolic heart failure, CKD. This time he presented to the hospital because of increased chest pressure and shortness of breath orthopnea and paroxysmal nocturnal dyspnea. He also reports increased swelling in his bilateral lower extremity. Patient reports that he has been compliant with medication and has not stopped taking any of his medications. He does report lower urine output with his diuretic therapy over last 1 to 2 days. Admission EKG shows sinus rhythm, heart rate 82, no significant ST or T wave changes concerning of acute ischemia Chest x-ray shows mild pulm congestion Hemoglobin 12.6, BUN 21, creatinine 0.5, troponin x 3 negative, BNP 191 REVIEW OF SYSTEMS 14 point review of system is negative except what is mentioned above in HPI. PHYSICAL EXAMINATION Vital signs reviewed. Morbidly obese Head: Normocephalic. Eyes: Sclerae nonicteric. Neck: Brisk carotid upstroke, difficult to assess jugular venous distention due to thick neck Lungs: Crackles audible, decreased air entry bilateral bases Heart: Regular rate and rhythm, S1-S2, no S3, systolic murmur audible Abdomen: positive bowel sounds. Extremities: 2+ bilateral lower extremity with chronic skin changes of chronic edema Neuro: Alert, oritented, no focal deficits. Detailed neuro exam was not performed. ASSESSMENT Acute HFpEF exacerbation Paroxysmal atrial fibrillation Morbid obesity Severe concentric LVH Chronic lower extremity edema Asthma Prior smoker JEANIE, not compliant to CPAP Echo from February 2024 EF 5560%, severe LVH, Heart cath 2022, normal coronary arteries, minimally elevated LVEDP Home medication Eliquis aspirin Lasix 40 twice daily, Lopressor 25, Aldactone 25 PLAN Lasix 40 mg IV twice daily Metoprolol succinate 50 mg daily Aldactone 25 mg daily Farxiga 10 mg daily If blood pressure is high, consider adding ARB No need to repeat echocardiogram at this time. Seymour Talamantes MD, FACC, RPVI Thank you for allowing [facility] to participate in this patient's care. Feel free to reach out in case of any followup questions. Past Medical History Past Medical History: Atrial Fibrillation, Asthma, COPD, GERD/Reflux, Osteoa rthritis (OA), Pneumonia, Sleep Apnea/CPAP/BIPAP Additional Past Medical History / Comment(s): JEANIE/unable to tolerate cpap, pneumonias, bronchitis, chronic lower extremity lymphedema/redness/scabs, arthritis in multiple joints/chronic pain/chronic back pain History of Any Multi-Drug Resistant Organisms: None Reported Past Surgical History: Adenoidectomy, Appendectomy, Orthopedic Surgery, Tonsillectomy Additional Past Surgical History / Comment(s): Bilateral knee arthroscopy, UVPPP, carpal tunnel surgery, right shoulder surgery, colonoscopy/benign polypectomy. Past Anesthesia/Blood Transfusion Reactions: No Reported Reaction Past Psychological History: No Psychological Hx Reported Smoking Status: Former smoker Past Alcohol Use History: None Reported Past Drug Use History: None Reported - Past Family History Father History Unknown: Yes Family Medical History: Cancer Additional Family Medical History / Comment(s): . Mother History Unknown: Yes Family Medical History: Deep Vein Thrombosis (DVT) Medications and Allergies Home Medications Medication Instructions Recorded Confirmed Type Spironolactone [Aldactone] 25 mg PO DAILY 12/25/20 02/24/24 History Meloxicam 7.5 mg PO DAILY 08/05/21 02/24/24 History Umeclidinium [place] [Incruse 1 puff INHALATION RT-DAILY 12/18/23 02/24/24 History Ellipta] Albuterol Inhaler [Ventolin Hfa 1 - 2 puff INHALATION RT-Q6H PRN 02/06/24 02/24/24 History Inhaler] Apixaban [Eliquis] 5 mg PO BID 02/06/24 02/24/24 History Budesonide/Formoterol Fumarate 1 puff INHALATION RT-DAILY 02/06/24 02/24/24 History [Breyna 160-4.5 Mcg Inhaler] Fluticasone Propion/Salmeterol 2 puff INHALATION RT-BID 02/06/24 02/24/24 History [Advair Hfa 230-21 Mcg Inhaler] Metoprolol Tartrate [Lopressor] 25 mg PO BID 02/06/24 02/24/24 History Aspirin 81 mg PO DAILY tab 02/07/24 02/24/24 Rx Famotidine [Pepcid] 20 mg PO BID #60 tablet 02/07/24 02/24/24 Rx Furosemide [Lasix] 40 mg PO BID 02/24/24 02/24/24 History Nitroglycerin Sl Tabs [Nitrostat] 0.4 mg SUBLINGUAL Q5M PRN #20 tab 02/25/24 Rx Allergies Allergy/AdvReac Type Severity Reaction Status Date / Time isosorbide [From Imdur] AdvReac headache & Verified 03/25/24 16:35 blurred vision metoprolol [From Toprol XL] AdvReac headache & Verified 03/25/24 16:35 blurred vision Physical Exam Vitals: Vital Signs Temp Pulse Pulse Resp BP Pulse Ox 03/26/24 06:48 72 20 144/82 95 03/26/24 04:00 82 22 123/41 95 03/26/24 00:00 84 22 137/70 96 03/25/24 18:02 98.4 F 85 22 122/63 93 L 03/25/24 17:35 98.5 F 81 24 122/63 92 L 03/25/24 17:33 79 03/25/24 16:32 98.4 F 82 18 105/68 94 L Intake and Output 03/25/24 03/26/24 03/26/24 22:59 06:59 14:59 Other: Weight 190.509 kg Results 03/25/24 17:33 03/25/24 17:33 Cardiac Enzymes 03/25/24 03/25/24 03/25/24 Range/Units 17:33 17:33 21:19 AST 28 (17-59) U/L Troponin I <0.012 <0.012 (0.000-0.034) ng/mL 03/26/24 Range/Units 00:59 AST (17-59) U/L Troponin I <0.012 (0.000-0.034) ng/mL Coagulation 03/25/24 Range/Units 17:33 PT 9.8 L (10.0-12.5) sec APTT 26.5 (22.0-30.0) sec CBC 03/25/24 Range/Units 17:33 WBC 10.6 (3.8-10.6) k/uL RBC 4.72 (4.30-5.90) m/uL Hgb 12.6 L (13.0-17.5) gm/dL Hct 40.6 (39.0-53.0) % Plt Count 276 (150-450) k/uL Comprehensive Metabolic Panel 03/25/24 Range/Units 17:33 Sodium 136 L (137-145) mmol/L Potassium 4.4 (3.5-5.1) mmol/L Chloride 99 (98-107) mmol/L Carbon Dioxide 29 (22-30) mmol/L BUN 21 H (9-20) mg/dL Creatinine 0.52 L (0.66-1.25) mg/dL Glucose 186 H (74-99) mg/dL Calcium 8.8 (8.4-10.2) mg/dL AST 28 (17-59) U/L ALT 18 (4-49) U/L Alkaline Phosphatase 81 (38-126) U/L Total Protein 5.9 L (6.3-8.2) g/dL Albumin 3.4 L (3.5-5.0) g/dL Current Medications Generic Name Dose Route Start Last Admin Trade Name Freq PRN Reason Stop Dose Admin Dapagliflozin 10 mg 03/26/24 09:00 Dapagliflozin Propanediol 10 Mg Tablet PO DAILY [facility] Furosemide 40 mg 03/26/24 09:00 Furosemide 10 Mg/Ml 4 Ml Vial IV Q12HR [facility] Metoprolol Succinate 50 mg 03/26/24 09:00 Metoprolol Succinate (Er) 50 Mg Tab.Er.24h PO DAILY TAMELA Morphine Sulfate 4 mg 03/25/24 19:14 03/26/24 00:33 Morphine Sulfate 4 Mg/Ml Syringe IV 4 mg Q4HR PRN Administration Severe Pain (Scale 7 to 10) Naloxone HCl 0.2 mg 03/25/24 19:14 Naloxone 0.4 Mg/Ml 1 Ml Vial IV Q2M PRN Opioid Reversal Ondansetron HCl 4 mg 03/25/24 19:14 Ondansetron 4 Mg/2 Ml Vial IVP Q8HR PRN Nausea And Vomiting Spironolactone 25 mg 03/26/24 09:00 Spironolactone 25 Mg Tab PO DAILY [facility] Intake and Output 03/25/24 03/26/24 03/26/24 22:59 06:59 14:59 Other: Weight 190.509 kg 03/25/24 17:33 03/25/24 17:33
[2024-03-26] MEDS: DAPAGLIFLOZIN PROPANEDIOL 10 MG TABLET PO SCH (08:56)
[2024-03-26] MEDS: FUROSEMIDE 10 MG/ML 4 ML VIAL IV SCH (08:56)
[2024-03-26] MEDS: SPIRONOLACTONE 25 MG TAB PO SCH (08:56)
[2024-03-26] MEDS: METOPROLOL SUCCINATE (ER) 50 MG TAB.ER.24H PO SCH (08:56)
[2024-03-26] MEDS ORDERED: ALBUTEROL HFA INHALER INHALATION PRN (10:40)
[2024-03-26] MEDS ORDERED: NITROGLYCERIN SL TABS 0.4 MG TAB SUBLINGUAL PRN (10:40)
--- NOTE | 2024-03-26 10:43 | P.HPIM ---
History of Present Illness This is a pleasant 58 years old male with past medical history of multiple medical problems as below Presents because of worsening dyspnea and chest pain of 2 days duration Patient has chronic sore throat, he is complaining also from cough and phlegm His chest pain is central radiating to the back felt like someone sitting on his chest he rates the pain about 5/10 with pain getting worse when become more lying back or sitting up. Patient generally weak with mild headache and neck pain Patient complains from chronic left lower quadrant pain and cramping Denies urinary complaint no diarrhea or vomiting. At home he supposed to use CPAP but is not adherent with it because of his panic attack pt s on room air Labs unremarkable including CBC basic metabolic panel, liver enzymes, INR, troponin less than 0.012 x 3. EKG showing sinus rhythm with no significant ST-T changes Chest x-ray showing cardiomegaly with mild pulmonary vascular congestion Patient was started on IV Lasix 40 mg twice daily. Also he was placed on home dose of metoprolol 50 mg, Aldactone 25 mg and Farxiga with sliding scale. Review of Systems Review of systems CONSTITUTIONAL: No fever, no malaise, no fatigue. HEENT: No recent visual problems or hearing problems. Denied any sore throat. CARDIOVASCULAR: No orthopnea, PND, no palpitations, no syncope. -PULMONARY: N chest wall tenderness h, no hemoptysis. GASTROINTESTINAL: No diarrhea, no nausea, no vomiting, no abdominal pain. Normoactive bowel sounds. NEUROLOGICAL: No headaches, no weakness, no numbness. HEMATOLOGICAL: Denies any bleeding or petechiae. GENITOURINARY: Denies any burning micturition, frequency, or urgency. MUSCULOSKELETAL/RHEUMATOLOGICAL: Denies any joint pain, swelling, or any muscle pain. ENDOCRINE: Denies any polyuria or polydipsia. Past Medical History Past Medical History: Atrial Fibrillation, Asthma, COPD, GERD/Reflux, Osteoarthritis (OA), Pneumonia, Sleep Apnea/CPAP/BIPAP Additional Past Medical History / Comment(s): JEANIE/unable to tolerate cpap, pneumonias, bronchitis, chronic lower extremity lymphedema/redness/scabs, arthritis in multiple joints/chronic pain/chronic back pain History of Any Multi-Drug Resistant Organisms: None Reported Past Surgical History: Adenoidectomy, Appendectomy, Orthopedic Surgery, Tonsillectomy Additional Past Surgical History / Comment(s): Bilateral knee arthroscopy, UVPPP, carpal tunnel surgery, right shoulder surgery, colonoscopy/benign polypectomy. Past Anesthesia/Blood Transfusion Reactions: No Reported Reaction Past Psychological History: No Psychological Hx Reported Smoking Status: Former smoker Past Alcohol Use History: None Reported Past Drug Use History: None Reported - Past Family History Father History Unknown: Yes Family Medical History: Cancer Additional Family Medical History / Comment(s): . Mother History Unknown: Yes Family Medical History: Deep Vein Thrombosis (DVT) Medications and Allergies Home Medications Medication Instructions Recorded Confirmed Type Spironolactone [Aldactone] 25 mg PO DAILY 12/25/20 03/26/24 History Meloxicam 7.5 mg PO DAILY 08/05/21 03/26/24 History Umeclidinium [place] [Incruse 1 puff INHALATION RT-DAILY 12/18/23 03/26/24 History Ellipta] Albuterol Inhaler [Ventolin Hfa 1 - 2 puff INHALATION RT-Q6H PRN 02/06/24 03/26/24 History Inhaler] Apixaban [Eliquis] 5 mg PO BID 02/06/24 03/26/24 History Budesonide/Formoterol Fumarate 1 puff INHALATION RT-DAILY 02/06/24 03/26/24 History [Breyna 160-4.5 Mcg Inhaler] Fluticasone Propion/Salmeterol 2 puff INHALATION RT-BID 02/06/24 03/26/24 History [Advair Hfa 230-21 Mcg Inhaler] Metoprolol Tartrate [Lopressor] 25 mg PO BID 02/06/24 03/26/24 History Furosemide [Lasix] 80 mg PO DAILY 02/24/24 03/26/24 History Nitroglycerin Sl Tabs [Nitrostat] 0.4 mg SUBLINGUAL Q5M PRN #20 tab 02/25/24 03/26/24 Rx Allergies Allergy/AdvReac Type Severity Reaction Status Date / Time isosorbide [From Imdur] AdvReac headache & Verified 03/26/24 10:26 blurred vision metoprolol [From Toprol XL] AdvReac headache & Verified 03/26/24 10:26 blurred vision Physical Exam Vitals: Vital Signs Temp Pulse Pulse Resp BP BP Pulse Ox 03/26/24 08:00 97.9 F 82 18 109/82 93 L 03/26/24 06:48 72 20 144/82 95 03/26/24 04:00 82 22 123/41 95 03/26/24 00:00 84 22 137/70 96 03/25/24 18:02 98.4 F 85 22 122/63 93 L 03/25/24 17:35 98.5 F 81 24 122/63 92 L 03/25/24 17:33 79 03/25/24 16:32 98.4 F 82 18 105/68 94 L Intake and Output 03/25/24 03/26/24 03/26/24 22:59 06:59 14:59 Output Total 1550 Balance -1550 Output: Urine 1550 Other: Voiding Method Urinal Weight 190.509 kg -GENERAL: The patient is alert and oriented x3, not in any acute distress. W morbidly obese HEENT: Pupils are round and equally reacting to light. EOMI. No scleral icterus. No conjunctival pallor. Normocephalic, atraumatic. No pharyngeal erythema. No thyromegaly. CARDIOVASCULAR: S1 and S2 present. No murmurs, rubs, or gallops. -PULMONARY: Chest is clear to auscultation, no wheezing , no crackles. Decreased breath sounds because of his body habitus ABDOMEN: Soft, nontender, nondistended, normoactive bowel sounds. No palpable organomegaly. MUSCULOSKELETAL: No joint swelling or deformity. -EXTREMITIES: No cyanosis, clubbing, or pedal edema. Chronic bilateral lower extremity lymphedema with no evidence of cellulitis NEUROLOGICAL: Gross neurological examination did not reveal any focal deficits. SKIN: No rashes. no petechiae. Results CBC & Chem 7: 03/25/24 17:33 03/25/24 17:33 Labs: Abnormal Lab Results - Last 24 Hours (Table) 03/25/24 03/25/24 03/25/24 Range/Units 17:33 17:33 17:33 Hgb 12.6 L (13.0-17.5) gm/dL Neutrophils # 8.2 H (1.3-7.7) k/uL PT 9.8 L (10.0-12.5) sec Sodium 136 L (137-145) mmol/L BUN 21 H (9-20) mg/dL Creatinine 0.52 L (0.66-1.25) mg/dL Glucose 186 H (74-99) mg/dL Total Protein 5.9 L (6.3-8.2) g/dL Albumin 3.4 L (3.5-5.0) g/dL Assessment and Plan Assessment: Acute CHF exacerbation A-fib, paroxysmal on Eliquis Asthma/COPD no acute exacerbation Obstructive sleep apnea GERD Osteoarthritis Bilateral lower extremity lymphedema, chronic Chronic back pain and osteoarthritis Plan: Continue with IV Lasix Continue with cardiac medication metoprolol Farxiga and Aldactone Cardiology team consult Continue with DuoNeb breathing treatment Monitor sodium and creatinine and electrolytes GI and DVT prophylaxis with Eliquis from home and Pepcid Prognosis is guarded
[2024-03-26] MEDS: APIXABAN 5 MG TAB PO SCH (20:25)
[2024-03-27] MEDS ORDERED: SYMBICORT 160-4.5 MCG INHALER INHALATION SCH (08:00)
[2024-03-27] MEDS: SYMBICORT 160-4.5 MCG INHALER INHALATION SCH (08:16)
[2024-03-27] MEDS: IPRATROPIUM-ALBUTEROL 3 ML NEB INHALATION PRN (08:16)
[2024-03-27 10:24] LABS: Basophils # (A) 0.04 X 10*3/uL (0.00-0.10); Basophils % (A) 0.4 %; Eosinophils # (A) 0.25 X 10*3/uL (0.04-0.35); Eosinophils % (A) 2.7 %; HCT 43.3 % (39.6-50.0); HGB 13.2 g/dL (13.0-17.0); Lymphocytes # (A) 1.11 X 10*3/uL (0.90-5.00); Lymphocytes % (A) 11.9 %; MCH 26.8 pg (27.0-32.0); MCHC 30.5 g/dL (32.0-37.0); Mean Platelet Volume 9.6 FL (9.5-12.2); Monocytes # (A) 0.76 X 10*3/uL (0.20-1.00); Monocytes % (A) 8.2 %; NRBC Per 100 WBC 0 X 10*3/uL (0.00-0.01); Neutrophils # (A) 7.12 X 10*3/uL (1.80-7.70); Neutrophils % (A) 76.4 %; Platelet Count 245 X 10*3/uL (140-440); RBC 4.92 X 10*6/uL (4.40-5.60); RDW 14.7 % (11.5-14.5); WBC 9.32 X 10*3/uL (4.50-10.00)
[2024-03-27 10:38] LABS: BUN/Creat Ratio 20.71 Ratio (12.00-20.00); Blood Urea Nitrogen 14.5 mg/dL (9.0-27.0); Calcium 8.9 mg/dL (8.7-10.3); Chloride 96 mmol/L (96-109); Glucose 129 mg/dL (70-110); Potassium 4.2 mmol/L (3.5-5.5); Sodium 138 mmol/L (135-145)
[2024-03-27] MEDS: ceFAZolin 3 GM in SODIUM CHLORIDE 0.9% 100 ML IVPB SCH (12:46)
--- NOTE | 2024-03-27 13:18 | P.PN ---
Subjective HISTORY OF PRESENT ILLNESS: 03/26/2024 48-year-old male with history of alcohol dependence, DVT, PE, paroxysmal atrial fibrillation, hypertension, dyslipidemia. He presented to the hospital because of substernal chest pressure like sensation like elephant sitting on his chest for last 2 to 3 days. His symptoms are not related to exertion. Patient reported that few weeks ago he was at [facility] for similar symptoms where he was admitted for ICU. He was told that he had intermittent atrial fibrillation. He also reported that he has prior history of PE and is on anticoagulation with Eliquis He drinks fifth of alcohol every day. On admission he had elevated D-dimer, low platelets of 114, low magnesium, hyponatremia, lipase of 543 serum alcohol of 367 CTA negative for PE ECG sinus tachycardia Echo from February 2024 EF 5560%, severe LVH, Heart cath 2022, normal coronary arteries, minimally elevated LVEDP 03/27/2024 Patient examined this morning at the bedside. Patient currently denies chest pain or pressure. He continues to report shortness of breath. He remains on IV Lasix. Vital signs are stable. PHYSICAL EXAM: VITAL SIGNS: Reviewed. GENERAL: Well-developed in no acute distress. NECK: Supple. No JVD or thyromegaly LUNGS: Respirations even and unlabored. Lungs diminished bilaterally. HEART: Regular rate and rhythm. S1 and S2 heard. EXTREMITIES: Normal range of motion. No clubbing or cyanosis. Peripheral pulses intact. Bilateral lower extremity edema noted with chronic skin changes ASSESSMENT: Shortness of breath Acute on chronic heart failure with preserved EF, 55 to 60% Paroxysmal atrial fibrillation Severe concentric LVH Chronic lower extremity edema History of asthma Former nicotine dependence Obstructive sleep apnea, not compliant with CPAP Morbid obesity: BMI 64.6 PLAN: Continue current cardiac medications Continue IV Lasix 40 mg every 12 hours Daily weights, accurate intake and output, and monitoring of kidney function Further recommendations pending patient course Nurse practitioner note has been reviewed by physician. Signing provider agrees with the documented findings, assessment, and plan of care documented by ACADEMIC COUNSELOR as a scribe. Objective - Vital Signs Vital signs: Vital Signs Temp 97.6 F 03/27/24 07:23 Pulse 88 03/27/24 11:47 Resp 20 03/27/24 11:47 BP 132/80 03/27/24 07:23 Pulse Ox 93 L 03/27/24 08:20 FiO2 Intake & Output 05/19/24 05/20/24 05/20/24 18:59 06:59 18:59 Intake Total 236 118 Output Total 4500 2350 1200 Balance -4290 -1029 -8579 Weight 190.509 kg 198.4 kg Intake: Oral 236 118 Output: Urine 4500 2350 1200 Other: Voiding Method Urinal Urinal Urinal - Labs CBC & Chem 7: 03/27/24 07:24 03/27/24 07:24 Labs: Abnormal Lab Results - Last 24 Hours (Table) 03/27/24 03/27/24 Range/Units 07:24 07:24 MCH 26.8 L (27.0-32.0) pg MCHC 30.5 L (32.0-37.0) g/dL RDW 14.7 H (11.5-14.5) % BUN/Creatinine Ratio 20.71 H (12.00-20.00) Ratio Glucose 129 H (70-110) mg/dL
--- NOTE | 2024-03-27 19:44 | P.PN ---
Subjective Progress Note Date: 03/27/24 This is a pleasant 58 years old male with past medical history of multiple medical problems as below Presents because of worsening dyspnea and chest pain of 2 days duration Patient has chronic sore throat, he is complaining also from cough and phlegm His chest pain is central radiating to the back felt like someone sitting on his chest he rates the pain about 5/10 with pain getting worse when become more lying back or sitting up. Patient generally weak with mild headache and neck pain Patient complains from chronic left lower quadrant pain and cramping Denies urinary complaint no diarrhea or vomiting. At home he supposed to use CPAP but is not adherent with it because of his panic attack pt s on room air Labs unremarkable including CBC basic metabolic panel, liver enzymes, INR, troponin less than 0.012 x 3. EKG showing sinus rhythm with no significant ST-T changes Chest x-ray showing cardiomegaly with mild pulmonary vascular congestion Patient was started on IV Lasix 40 mg twice daily. Also he was placed on home dose of metoprolol 50 mg, Aldactone 25 mg and Farxiga with sliding scale. 03/27/2024 Patient evaluated in follow up. Patient remains short of breath and no further reports of chest pain at this time. He is continued on IV lasix 40 mg Q12 and has been diuresing well. Patient does complain of significant pain and itching to his lower extremities bilaterally noted to have significant erythema. Review of Systems Constitutional: Denied any fatigue denied any fever. Cardio vascular: denied any chest pain, palpitations Gastrointestinal: denied any nausea, vomiting, diarrhea Pulmonary: Reports shortness of breath and cough Neurologic denied any new focal deficits All inpatient medications were reviewed and appropriate changes in these medications as dictated in the interval history and assessment and plan. PHYSICAL EXAMINATION: GENERAL: The patient is alert and oriented x3, not in any acute distress. Well developed, well nourished. HEENT: Pupils are round and equally reacting to light. EOMI. No scleral icterus. No conjunctival pallor. Normocephalic, atraumatic. No pharyngeal erythema. No thyromegaly. CARDIOVASCULAR: S1 and S2 present. No murmurs, rubs, or gallops. Diminished PULMONARY: Chest is clear to auscultation, no wheezing or crackles. Patient has bob sputum production. ABDOMEN: Soft, nontender, nondistended, normoactive bowel sounds. No palpable organomegaly. MUSCULOSKELETAL: No joint swelling or deformity. EXTREMITIES: No cyanosis, clubbing, or pedal edema. NEUROLOGICAL: Gross neurological examination did not reveal any focal deficits. SKIN: No rashes. Lower extremity edema and erythema with scabs. Assessment and Plan Acute CHF exacerbation, diastolic dysfunction continues on IV lasix and cardiology following. Continue with cardiac medication metoprolol Farxiga and Aldactone. A-fib, paroxysmal on Eliquis Asthma/COPD with mild acute exacerbation patient has thick sputum production and cough. Patient does not need systemic steroids at this time. Will check sputum culture. Bilateral lower extremity cellulitis without sepsis. Obstructive sleep apnea GERD Osteoarthritis Bilateral lower extremity lymphedema, chronic Chronic back pain and osteoarthritis GI prophylaxis DVT prophylaxis Full Code Plan Continue IV lasix monitor renal function. Strict intake and output monitoring, daily weights. Repeat blood work in the AM. Start IV cefazolin for the lower extremity cellulitis. Check sputum culture. Cardiology following. The impression and plan of care has been dictated by Libra Gong, Nurse Practitioner as directed. Dr. Desi MD I have performed a history and physical examination and medical decision making of this patient, discussed the same with the dictator, and agree with the dictators assessment and plan as written, documented as a scribe. Based on total visit time, I have performed more than 50% of this visit. Objective - Vital Signs Vital signs: Vital Signs Temp 97.5 F L 03/27/24 14:52 Pulse 92 03/27/24 18:56 Resp 20 03/27/24 15:24 BP 93/61 03/27/24 14:52 Pulse Ox 92 L 03/27/24 14:52 FiO2 Intake & Output 03/27/24 03/27/24 03/28/24 06:59 18:59 06:59 Intake Total 118 Output Total 2350 1700 Balance -2350 -1582 Weight 198.4 kg Intake: Oral 118 Output: Urine 2350 1700 Other: Voiding Method Urinal Urinal - Labs CBC & Chem 7: 03/27/24 07:24 03/27/24 07:24 Labs: Abnormal Lab Results - Last 24 Hours (Table) 03/27/24 03/27/24 Range/Units 07:24 07:24 MCH 26.8 L (27.0-32.0) pg MCHC 30.5 L (32.0-37.0) g/dL RDW 14.7 H (11.5-14.5) % BUN/Creatinine Ratio 20.71 H (12.00-20.00) Ratio Glucose 129 H (70-110) mg/dL Assessment and Plan Time with Patient: Less than 30
[2024-03-27] MEDS: ACETAMINOPHEN TAB 325 MG TAB PO PRN (20:32)
[2024-03-28] MEDS: PANTOPRAZOLE 40 MG TABLET PO SCH (05:42)
--- NOTE | 2024-03-28 10:17 | P.PN ---
Subjective HISTORY OF PRESENT ILLNESS: 03/26/2024 48-year-old male with history of alcohol dependence, DVT, PE, paroxysmal atrial fibrillation, hypertension, dyslipidemia. He presented to the hospital because of substernal chest pressure like sensation like elephant sitting on his chest for last 2 to 3 days. His symptoms are not related to exertion. Patient reported that few weeks ago he was at [facility] for similar symptoms where he was admitted for ICU. He was told that he had intermittent atrial fibrillation. He also reported that he has prior history of PE and is on anticoagulation with Eliquis He drinks fifth of alcohol every day. On admission he had elevated D-dimer, low platelets of 114, low magnesium, hyponatremia, lipase of 543 serum alcohol of 367 CTA negative for PE ECG sinus tachycardia Echo from February 2024 EF 5560%, severe LVH, Heart cath 2022, normal coronary arteries, minimally elevated LVEDP 03/27/2024 Patient examined this morning at the bedside. Patient currently denies chest pain or pressure. He continues to report shortness of breath. He remains on IV Lasix. Vital signs are stable. 03/28/2024 Patient examined this morning at the bedside. Patient reports shortness of breath this morning. He remains on IV lasix. He reports he has been urinating quite a bit today. He reports a frequent cough that was productive yesterday but nonproductive today. PHYSICAL EXAM: VITAL SIGNS: Reviewed. GENERAL: Well-developed in no acute distress. NECK: Supple. No JVD or thyromegaly LUNGS: Respirations even and unlabored. Lungs diminished bilaterally with bilateral crackles. HEART: Regular rate and rhythm. S1 and S2 heard. EXTREMITIES: Normal range of motion. No clubbing or cyanosis. Peripheral pul ses intact. Bilateral lower extremity edema noted with chronic skin changes ASSESSMENT: Shortness of breath Acute on chronic heart failure with preserved EF, 55 to 60% Paroxysmal atrial fibrillation Severe concentric LVH Chronic lower extremity edema History of asthma Former nicotine dependence Obstructive sleep apnea, not compliant with CPAP Morbid obesity: BMI 64.6 PLAN: Continue current cardiac medications Continue IV Lasix 40 mg every 12 hours Daily weights, accurate intake and output, and monitoring of kidney function Further recommendations pending patient course Nurse practitioner note has been reviewed by physician. Signing provider agrees with the documented findings, assessment, and plan of care documented by BUSINESS DATABASE ANALYST as a scribe. Objective - Vital Signs Vital signs: Vital Signs Temp 98.1 F 03/28/24 08:00 Pulse 80 03/28/24 09:02 Resp 22 03/28/24 08:00 BP 118/74 03/28/24 08:00 Pulse Ox 97 03/28/24 08:00 FiO2 Intake & Output 03/27/24 03/28/24 03/28/24 18:59 06:59 18:59 Intake Total 118 118 Output Total 1700 4525 Balance -1582 -7811 118 Weight 196.7 kg Intake: Oral 118 118 Output: Urine 1700 4525 Other: Voiding Method Urinal Urinal - Labs CBC & Chem 7: 03/27/24 07:24 03/27/24 07:24 Labs: Abnormal Lab Results - Last 24 Hours (Table) 03/27/24 03/27/24 Range/Units 07:24 07:24 MCH 26.8 L (27.0-32.0) pg MCHC 30.5 L (32.0-37.0) g/dL RDW 14.7 H (11.5-14.5) % BUN/Creatinine Ratio 20.71 H (12.00-20.00) Ratio Glucose 129 H (70-110) mg/dL
[2024-03-28 12:09] LABS: Blood Urea Nitrogen 13.6 mg/dL (9.0-27.0); Calcium 9.3 mg/dL (8.7-10.3); Carbon Dioxide 30.8 mmol/L (21.6-31.8); Chloride 95 mmol/L (96-109); Glucose 129 mg/dL (70-110); Potassium 3.9 mmol/L (3.5-5.5); Sodium 139 mmol/L (135-145)
--- NOTE | 2024-03-28 14:00 | P.PN ---
Subjective Progress Note Date: 03/28/24 This is a pleasant 58 years old male with past medical history of multiple medical problems as below Presents because of worsening dyspnea and chest pain of 2 days duration Patient has chronic sore throat, he is complaining also from cough and phlegm His chest pain is central radiating to the back felt like someone sitting on his chest he rates the pain about 5/10 with pain getting worse when become more lying back or sitting up. Patient generally weak with mild headache and neck pain Patient complains from chronic left lower quadrant pain and cramping Denies urinary complaint no diarrhea or vomiting. At home he supposed to use CPAP but is not adherent with it because of his panic attack pt s on room air Labs unremarkable including CBC basic metabolic panel, liver enzymes, INR, troponin less than 0.012 x 3. EKG showing sinus rhythm with no significant ST-T changes Chest x-ray showing cardiomegaly with mild pulmonary vascular congestion Patient was started on IV Lasix 40 mg twice daily. Also he was placed on home dose of metoprolol 50 mg, Aldactone 25 mg and Farxiga with sliding scale. 03/27/2024 Patient evaluated in follow up. Patient remains short of breath and no further reports of chest pain at this time. He is continued on IV lasix 40 mg Q12 and has been diuresing well. Patient does complain of significant pain and itching to his lower extremities bilaterally noted to have significant erythema. 03/28/2024 Is evaluated today in follow-up in the medical floor. He continues to report shortness of breath however feels that this is mostly due to his body habitus and not so much the CHF at this point. He does continue on IV Lasix 40 mg every 12 hours. Cardiology is following this patient closely. He has diuresed well with 6 L of urine output off overnight. Remains on IV cefazolin with improvement to his erythema. His lower extremities are less painful as well. Review of Systems Constitutional: Denied any fatigue denied any fever. Cardio vascular: denied any chest pain, palpitations Gastrointestinal: denied any nausea, vomiting, diarrhea Pulmonary: Reports shortness of breath and cough Neurologic denied any new focal deficits All inpatient medications were reviewed and appropriate changes in these medications as dictated in the interval history and assessment and plan. PHYSICAL EXAMINATION: GENERAL: The patient is alert and oriented x3, not in any acute distress. Well developed, well nourished. HEENT: Pupils are round and equally reacting to light. EOMI. No scleral icterus. No conjunctival pallor. Normocephalic, atraumatic. No pharyngeal erythema. No thyromegaly. CARDIOVASCULAR: S1 and S2 present. No murmurs, rubs, or gallops. Diminished PULMONARY: Chest is clear to auscultation, no wheezing or crackles. Patient has bob sputum production. ABDOMEN: Soft, nontender, nondistended, normoactive bowel sounds. No palpable organomegaly. MUSCULOSKELETAL: No joint swelling or deformity. EXTREMITIES: No cyanosis, clubbing, or pedal edema. NEUROLOGICAL: Gross neurological examination did not reveal any focal deficits. SKIN: No rashes. Lower extremity edema and erythema with scabs. Assessment and Plan Acute CHF exacerbation, diastolic dysfunction continues on IV lasix and cardiology following. Continue with cardiac medication metoprolol Farxiga and Aldactone. A-fib, paroxysmal on Eliquis Asthma/COPD with mild acute exacerbation patient has thick sputum production and cough. Patient does not need systemic steroids at this time. Will check sputum culture. Bilateral lower extremity cellulitis without sepsis. Obstructive sleep apnea GERD Osteoarthritis Bilateral lower extremity lymphedema, chronic Chronic back pain and osteoarthritis GI prophylaxis DVT prophylaxis Full Code Plan Continue IV lasix monitor renal function. Strict intake and output monitoring, daily weights. Repeat blood work in the AM. Continue IV cefazolin for the lower extremity cellulitis. Check sputum culture. Cardiology following. The impression and plan of care has been dictated by Libra Gong, Nurse Practitioner as directed. Dr. Desi MD I have performed a history and physical examination and medical decision making of this patient, discussed the same with the dictator, and agree with the dictators assessment and plan as written, documented as a scribe. Based on total visit time, I have performed more than 50% of this visit. Objective - Vital Signs Vital signs: Vital Signs Temp 98.1 F 03/28/24 08:00 Pulse 78 03/28/24 11:59 Resp 22 03/28/24 08:00 BP 118/74 03/28/24 08:00 Pulse Ox 97 03/28/24 08:00 FiO2 Intake & Output 03/27/24 03/28/24 03/28/24 18:59 06:59 18:59 Intake Total 118 358 Output Total 1700 6750 139 Balance -8754 -9115 -592 Weight 196.7 kg Intake: Oral 118 358 Output: Urine 3766 1552 346 Other: Voiding Method Urinal Urinal Urinal - Labs CBC & Chem 7: 03/27/24 07:24 03/28/24 06:23 Assessment and Plan Time with Patient: Less than 30
[2024-03-29 10:54] LABS: BUN/Creat Ratio 17.75 Ratio (12.00-20.00); Blood Urea Nitrogen 14.2 mg/dL (9.0-27.0); Calcium 9.1 mg/dL (8.7-10.3); Carbon Dioxide 33.6 mmol/L (21.6-31.8); Chloride 97 mmol/L (96-109); Glucose 130 mg/dL (70-110); Potassium 3.9 mmol/L (3.5-5.5); Sodium 142 mmol/L (135-145)
--- NOTE | 2024-03-29 11:22 | P.PN ---
Subjective HISTORY OF PRESENT ILLNESS: 03/26/2024 48-year-old male with history of alcohol dependence, DVT, PE, paroxysmal atrial fibrillation, hypertension, dyslipidemia. He presented to the hospital because of substernal chest pressure like sensation like elephant sitting on his chest for last 2 to 3 days. His symptoms are not related to exertion. Patient reported that few weeks ago he was at [facility] for similar symptoms where he was admitted for ICU. He was told that he had intermittent atrial fibrillation. He also reported that he has prior history of PE and is on anticoagulation with Eliquis He drinks fifth of alcohol every day. On admission he had elevated D-dimer, low platelets of 114, low magnesium, hyponatremia, lipase of 543 serum alcohol of 367 CTA negative for PE ECG sinus tachycardia Echo from February 2024 EF 5560%, severe LVH, Heart cath 2022, normal coronary arteries, minimally elevated LVEDP 03/27/2024 Patient examined this morning at the bedside. Patient currently denies chest pain or pressure. He continues to report shortness of breath. He remains on IV Lasix. Vital signs are stable. 03/28/2024 Patient examined this morning at the bedside. Patient reports shortness of breath this morning. He remains on IV lasix. He reports he has been urinating quite a bit today. He reports a frequent cough that was productive yesterday but nonproductive today. 03/29/2024 Patient examined this morning at the bedside. He denies chest pain or pressure. Patient continues to report shortness of breath. Patient states that he took a shower this morning and feels winded at the time of examination. He continues to have lower extremity edema although improved. He remains on IV diuretics. Creatinine today 0.8. PHYSICAL EXAM: VITAL SIGNS: Reviewed. GENERAL: Well-developed in no acute distress. NECK: Supple. No JVD or thyromegaly LUNGS: Respirations even and unlabored. Lungs diminished bilaterally with bilateral crackles. HEART: Regular rate and rhythm. S1 and S2 heard. EXTREMITIES: Normal range of motion. No clubbing or cyanosis. Peripheral pulses intact. Bilateral lower extremity edema noted with chronic skin changes ASSESSMENT: Shortness of breath Acute on chronic heart failure with preserved EF, 55 to 60% Paroxysmal atrial fibrillation Severe concentric LVH Chronic lower extremity edema History of asthma Former nicotine dependence Obstructive sleep apnea, not compliant with CPAP Morbid obesity: BMI 64.6 PLAN: Continue current cardiac medications Continue IV Lasix 40 mg every 12 hours Daily weights, accurate intake and output, and monitoring of kidney function Further recommendations pending patient course Nurse practitioner note has been reviewed by physician. Signing provider agrees with the documented findings, assessment, and plan of care documented by [employer] as a scribe. Objective - Vital Signs Vital signs: Vital Signs Temp 97.8 F 03/29/24 07:49 Pulse 76 03/29/24 08:07 Resp 22 03/29/24 07:49 BP 122/77 03/29/24 07:49 Pulse Ox 92 L 03/29/24 07:49 FiO2 Intake & Output 03/28/24 03/29/24 03/29/24 18:59 06:59 18:59 Intake Total 995 Output Total 4125 3025 225 Balance -3130 -3025 -225 Weight 195.2 kg Intake: Oral 995 Output: Urine 4125 3025 225 Other: Voiding Method Urinal Urinal # Voids 1 - Labs CBC & Chem 7: 03/27/24 07:24 03/29/24 06:31 Labs: Abnormal Lab Results - Last 24 Hours (Table) 03/28/24 Range/Units 06:23 Chloride 95 L (96-109) mmol/L Anion Gap 13.20 H (4.00-12.00) mmol/L Glucose 129 H (70-110) mg/dL
--- NOTE | 2024-03-29 14:41 | P.PN ---
Subjective Progress Note Date: 03/29/24 This is a pleasant 58 years old male with past medical history of multiple medical problems as below Presents because of worsening dyspnea and chest pain of 2 days duration Patient has chronic sore throat, he is complaining also from cough and phlegm His chest pain is central radiating to the back felt like someone sitting on his chest he rates the pain about 5/10 with pain getting worse when become more lying back or sitting up. Patient generally weak with mild headache and neck pain Patient complains from chronic left lower quadrant pain and cramping Denies urinary complaint no diarrhea or vomiting. At home he supposed to use CPAP but is not adherent with it because of his panic attack pt s on room air Labs unremarkable including CBC basic metabolic panel, liver enzymes, INR, troponin less than 0.012 x 3. EKG showing sinus rhythm with no significant ST-T changes Chest x-ray showing cardiomegaly with mild pulmonary vascular congestion Patient was started on IV Lasix 40 mg twice daily. Also he was placed on home dose of metoprolol 50 mg, Aldactone 25 mg and Farxiga with sliding scale. 03/27/2024 Patient evaluated in follow up. Patient remains short of breath and no further reports of chest pain at this time. He is continued on IV lasix 40 mg Q12 and has been diuresing well. Patient does complain of significant pain and itching to his lower extremities bilaterally noted to have significant erythema. 03/28/2024 Is evaluated today in follow-up in the medical floor. He continues to report shortness of breath however feels that this is mostly due to his body habitus and not so much the CHF at this point. He does continue on IV Lasix 40 mg every 12 hours. Cardiology is following this patient closely. He has diuresed well with 6 L of urine output off overnight. Remains on IV cefazolin with improvement to his erythema. His lower extremities are less painful as well. 03/29/2024 Patient is evaluated today in follow up. Remains on IV lasix 40 mg q12h. Patient remains significantly short of breath. He would benefit from PT/OT. He has evidence of ring worm rash on his left lower extremity. The redness to his bilateral lower extremities is improving. He has a small skin tear/pressure injury on his left gluteal cleft. About 1/4 in in diameter. Review of Systems Constitutional: Denied any fatigue denied any fever. Cardio vascular: denied any chest pain, palpitations Gastrointestinal: denied any nausea, vomiting, diarrhea Pulmonary: Reports shortness of breath and cough Neurologic denied any new focal deficits All inpatient medications were reviewed and appropriate changes in these medications as dictated in the interval history and assessment and plan. PHYSICAL EXAMINATION: GENERAL: The patient is alert and oriented x3, not in any acute distress. Well d eveloped, well nourished. HEENT: Pupils are round and equally reacting to light. EOMI. No scleral icterus. No conjunctival pallor. Normocephalic, atraumatic. No pharyngeal erythema. No thyromegaly. CARDIOVASCULAR: S1 and S2 present. No murmurs, rubs, or gallops. Diminished PULMONARY: Chest is clear to auscultation, no wheezing or crackles. Patient has bob sputum production. ABDOMEN: Soft, nontender, nondistended, normoactive bowel sounds. No palpable organomegaly. MUSCULOSKELETAL: No joint swelling or deformity. EXTREMITIES: No cyanosis, clubbing, or pedal edema. NEUROLOGICAL: Gross neurological examination did not reveal any focal deficits. SKIN: No rashes. Lower extremity edema and erythema with scabs. Assessment and Plan Acute CHF exacerbation, diastolic dysfunction continues on IV lasix and cardiology following. Continue with cardiac medication metoprolol Farxiga and Aldactone. A-fib, paroxysmal on Eliquis Asthma/COPD with mild acute exacerbation patient has thick sputum production and cough. Patient does not need systemic steroids at this time. Will check sputum culture. Remains on symbicort. Fungal infection/tinea corporis left lower extremity will add clotrimazole cream to the left leg and also bilaterally feet/toes. Bilateral lower extremity cellulitis without sepsis. Obstructive sleep apnea GERD Osteoarthritis Bilateral lower extremity lymphedema, chronic Chronic back pain and osteoarthritis Morbid obesity with BMI 63.5. skin tear/pressure injury on his left gluteal cleft. Present on admission, About 1/4 in in diameter. Apply optifoam and zinc barrier paste. GI prophylaxis DVT prophylaxis Full Code Plan Continue IV lasix monitor renal function. Strict intake and output monitoring, daily weights. Repeat blood work in the AM. Continue IV cefazolin for the lower extremity cellulitis. Add clotrimazole. Check sputum culture. Cardiology following. Physical therapy has been consulted for evaluation. The impression and plan of care has been dictated by Libra Gong, Nurse Practitioner as directed. Dr. Desi MD I have performed a history and physical examination and medical decision making of this patient, discussed the same with the dictator, and agree with the dictators assessment and plan as written, documented as a scribe. Based on total visit time, I have performed more than 50% of this visit. Objective - Vital Signs Vital signs: Vital Signs Temp 98.3 F 03/29/24 14:11 Pulse 75 03/29/24 14:11 Resp 20 03/29/24 14:11 BP 107/73 03/29/24 14:11 Pulse Ox 95 03/29/24 14:11 FiO2 Intake & Output 03/28/24 03/29/24 03/29/24 18:59 06:59 18:59 Intake Total 995 236 Output Total 4125 3025 1550 Balance -3130 -3025 -1314 Weight 195.2 kg Intake: Oral 995 236 Output: Urine 4125 3025 1550 Other: Voiding Method Urinal Urinal # Voids 1 - Labs CBC & Chem 7: 03/27/24 07:24 03/29/24 06:31 Labs: Abnormal Lab Results - Last 24 Hours (Table) 03/29/24 Range/Units 06:31 Carbon Dioxide 33.6 H (21.6-31.8) mmol/L Glucose 130 H (70-110) mg/dL Assessment and Plan Time with Patient: Less than 30
[2024-03-29] MEDS: CLOTRIMAZOLE 1% CREAM 30 GM TUBE TOPICAL SCH (15:36)
[2024-03-30 11:06] LABS: Calcium 8.9 mg/dL (8.7-10.3); Carbon Dioxide 28.6 mmol/L (21.6-31.8); Chloride 96 mmol/L (96-109); Glucose 133 mg/dL (70-110); Sodium 139 mmol/L (135-145)
--- NOTE | 2024-03-30 12:59 | P.PN ---
Subjective HISTORY OF PRESENT ILLNESS: 03/26/2024 48-year-old male with history of alcohol dependence, DVT, PE, paroxysmal atrial fibrillation, hypertension, dyslipidemia. He presented to the hospital because of substernal chest pressure like sensation like elephant sitting on his chest for last 2 to 3 days. His symptoms are not related to exertion. Patient reported that few weeks ago he was at [facility] for similar symptoms where he was admitted for ICU. He was told that he had intermittent atrial fibrillation. He also reported that he has prior history of PE and is on anticoagulation with Eliquis He drinks fifth of alcohol every day. On admission he had elevated D-dimer, low platelets of 114, low magnesium, hyponatremia, lipase of 543 serum alcohol of 367 CTA negative for PE ECG sinus tachycardia Echo from February 2024 EF 5560%, severe LVH, Heart cath 2022, normal coronary arteries, minimally elevated LVEDP 03/27/2024 Patient examined this morning at the bedside. Patient currently denies chest pain or pressure. He continues to report shortness of breath. He remains on IV Lasix. Vital signs are stable. 03/28/2024 Patient examined this morning at the bedside. Patient reports shortness of breath this morning. He remains on IV lasix. He reports he has been urinating quite a bit today. He reports a frequent cough that was productive yesterday but nonproductive today. 03/29/2024 Patient examined this morning at the bedside. He denies chest pain or pressure. Patient continues to report shortness of breath. Patient states that he took a shower this morning and feels winded at the time of examination. He continues to have lower extremity edema although improved. He remains on IV diuretics. Creatinine today 0.8. 03/30/2024 Patient examined this morning at the bedside. Patient reports improvement in his shortness of breath. He currently denies any chest pain or pressure. He remains on IV Lasix. Vital signs are stable. Creatinine 0.8. PHYSICAL EXAM: VITAL SIGNS: Reviewed. GENERAL: Well-developed in no acute distress. NECK: Supple. No JVD or thyromegaly LUNGS: Respirations even and unlabored. Lungs diminished bilaterally HEART: Regular rate and rhythm. S1 and S2 heard. EXTREMITIES: Normal range of motion. No clubbing or cyanosis. Peripheral pulses intact. Bilateral lower extremity edema noted with chronic skin changes ASSESSMENT: Shortness of breath Acute on chronic heart failure with preserved EF, 55 to 60% Paroxysmal atrial fibrillation Severe concentric LVH Chronic lower extremity edema History of asthma Former nicotine dependence Obstructive sleep apnea, not compliant with CPAP Morbid obesity: BMI 64.6 PLAN: Continue current cardiac medications Continue IV Lasix 40 mg every 12 hours Daily weights, accurate intake and output, and monitoring of kidney function Further recommendations pending patient course Nurse practitioner note has been reviewed by physician. Signing provider agrees with the documented findings, assessment, and plan of care documented by BINDER SORTER as a scribe. Objective - Vital Signs Vital signs: Vital Signs Temp 97.9 F 03/30/24 07:39 Pulse 75 03/30/24 07:39 Resp 20 03/30/24 07:39 BP 114/69 03/30/24 07:39 Pulse Ox 95 03/30/24 07:39 FiO2 Intake & Output 03/29/24 03/30/24 03/30/24 18:59 06:59 18:59 Intake Total 236 Output Total 7109 038 6427 Balance -1614 -800 -1450 Weight 196.6 kg Intake: Oral 236 Output: Urine 2335 008 5654 Other: Voiding Method Urinal Urinal # Voids 1 1 - Labs CBC & Chem 7: 03/27/24 07:24 03/30/24 07:09 Labs: Abnormal Lab Results - Last 24 Hours (Table) 03/30/24 Range/Units 07:09 Anion Gap 14.40 H (4.00-12.00) mmol/L Glucose 133 H (70-110) mg/dL
--- NOTE | 2024-03-30 13:23 | P.CONS ---
History of Present Illness - Reason for Consult Consult date: 03/30/24 wound care - History of Present Illness This is a 58-year-old gentleman being seen on [address] for nonhealing ulceration to the right upper thigh medial aspect. Patient states that the ulceration comes and goes he is unable to reach it so he does not put any treatment on it. Patient does complain of pain to the site. Ulceration measures approximately 1 x 1 x 0.1 cm with slough and nonviable tissue present granulation seen throughout out the wound bed. No tunneling or undermining noted. The wound edges are attached to the wound base. Patient's past medical history significant for atrial fibrillation, asthma, COPD, obesity, GERD, sleep apnea. Review Of Systems: Constitutional: No fever, no chills, no night sweats. No weight change. No weakness, fatigue or lethargy. No daytime sleepiness. Integumentary:reports wounds, no lesions. No rash or pruritus. No unusual bruising. No change in hair or nails. Physical exam: General Appearance: Alert, cooperative, no distress, appears stated age. Skin: See HPI all other Skin color, texture, tugor normal, no rashes or lesions. Neurologic: Alert oriented x3 Assessment: 1. Nonhealing ulceration with fat layer exposure right lower extremity. Plan: 1. Apply honey gel and bordered foam. Change Wednesday. Thank you for the consultation any questions please contact the wound care center DNP note has been reviewed and discussed with Dr. Thapa and the impression and plan of care has been directed as dictated. Past Medical History Past Medical History: Atrial Fibrillation, Asthma, COPD, GERD/Reflux, Osteoarthritis (OA), Pneumonia, Sleep Apnea/CPAP/BIPAP Additional Past Medical History / Comment(s): JEANIE/unable to tolerate cpap, pneumonias, bronchitis, chronic lower extremity lymphedema/redness/scabs, arthritis in multiple joints/chronic pain/chronic back pain History of Any Multi-Drug Resistant Organisms: None Reported Past Surgical History: Adenoidectomy, Appendectomy, Orthopedic Surgery, Tonsillectomy Additional Past Surgical History / Comment(s): Bilateral knee arthroscopy, UVPPP, carpal tunnel surgery, right shoulder surgery, colonoscopy/benign polypectomy. Past Anesthesia/Blood Transfusion Reactions: No Reported Reaction Past Psychological History: No Psychological Hx Reported Additional Psychological History / Comment(s): Pt has a brother/nephew who live with him. Pt uses crutches to ambulate. Smoking Status: Former smoker Past Alcohol Use History: None Reported Additional Past Alcohol Use History / Comment(s): Pt started smoking in 1979 and quit smoking 12/09/2006. Past Drug Use History: None Reported - Past Family History Father History Unknown: Yes Family Medical History: Cancer Additional Family Medical History / Comment(s): . Mother History Unknown: Yes Family Medical History: Deep Vein Thrombosis (DVT) Medications and Allergies Home Medications Medication Instructions Recorded Confirmed Type Spironolactone [Aldactone] 25 mg PO DAILY 12/25/20 03/26/24 History Meloxicam 7.5 mg PO DAILY 08/05/21 03/26/24 History Umeclidinium [place] [Incruse 1 puff INHALATION RT-DAILY 12/18/23 03/26/24 History Ellipta] Albuterol Inhaler [Ventolin Hfa 1 - 2 puff INHALATION RT-Q6H PRN 02/06/24 03/26/24 History Inhaler] Apixaban [Eliquis] 5 mg PO BID 02/06/24 03/26/24 History Budesonide/Formoterol Fumarate 1 puff INHALATION RT-DAILY 02/06/24 03/26/24 History [Breyna 160-4.5 Mcg Inhaler] Fluticasone Propion/Salmeterol 2 puff INHALATION RT-BID 02/06/24 03/26/24 History [Advair Hfa 230-21 Mcg Inhaler] Metoprolol Tartrate [Lopressor] 25 mg PO BID 02/06/24 03/26/24 History Furosemide [Lasix] 80 mg PO DAILY 02/24/24 03/26/24 History Nitroglycerin Sl Tabs [Nitrostat] 0.4 mg SUBLINGUAL Q5M PRN #20 tab 02/25/24 03/26/24 Rx Allergies Allergy/AdvReac Type Severity Reaction Status Date / Time isosorbide [From Imdur] AdvReac headache & Verified 03/26/24 10:26 blurred vision metoprolol [From Toprol XL] AdvReac headache & Verified 03/26/24 10:26 blurred vision Physical Exam Vitals: Vital Signs Temp Pulse Pulse Resp BP BP Pulse Ox 03/30/24 07:39 97.9 F 75 20 114/69 95 03/30/24 01:57 98.2 F 70 15 140/75 94 L 03/29/24 21:47 72 03/29/24 21:34 76 03/29/24 19:37 98.3 F 78 15 113/71 94 L 03/29/24 14:11 98.3 F 75 20 107/73 95 Intake and Output 03/29/24 03/30/24 03/30/24 22:59 06:59 14:59 Output Total 139 677 3944 Balance -300 -800 -1450 Output: Urine 943 077 4280 Other: Voiding Method Urinal # Voids 1 Weight 196.6 kg Results CBC & Chem 7: 03/27/24 07:24 03/30/24 07:09 Labs: Abnormal Lab Results - Last 24 Hours (Table) 03/30/24 Range/Units 07:09 Anion Gap 14.40 H (4.00-12.00) mmol/L Glucose 133 H (70-110) mg/dL Assessment and Plan (1) 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
--- NOTE | 2024-03-30 20:44 | P.PN ---
Progress Note - Text Progress Note Date: 03/30/24 This is a pleasant 58 years old male with past medical history of multiple medical problems as below Presents because of worsening dyspnea and chest pain of 2 days duration Patient has chronic sore throat, he is complaining also from cough and phlegm His chest pain is central radiating to the back felt like someone sitting on his chest he rates the pain about 5/10 with pain getting worse when become more lying back or sitting up. Patient generally weak with mild headache and neck pain Patient complains from chronic left lower quadrant pain and cramping Denies urinary complaint no diarrhea or vomiting. At home he supposed to use CPAP but is not adherent with it because of his panic attack pt s on room air Labs unremarkable including CBC basic metabolic panel, liver enzymes, INR, troponin less than 0.012 x 3. EKG showing sinus rhythm with no significant ST-T changes Chest x-ray showing cardiomegaly with mild pulmonary vascular congestion Patient was started on IV Lasix 40 mg twice daily. Also he was placed on home dose of metoprolol 50 mg, Aldactone 25 mg and Farxiga with sliding scale. 03/27/2024 Patient evaluated in follow up. Patient remains short of breath and no further reports of chest pain at this time. He is continued on IV lasix 40 mg Q12 and has been diuresing well. Patient does complain of significant pain and itching to his lower extremities bilaterally noted to have significant erythema. 03/28/2024 Is evaluated today in follow-up in the medical floor. He continues to report shortness of breath however feels that this is mostly due to his body habitus and not so much the CHF at this point. He does continue on IV Lasix 40 mg every 12 hours. Cardiology is following this patient closely. He has diuresed well with 6 L of urine output off overnight. Remains on IV cefazolin with improvement to his erythema. His lower extremities are less painful as well. 03/29/2024 Patient is evaluated today in follow up. Remains on IV lasix 40 mg q12h. Patient remains significantly short of breath. He would benefit from PT/OT. He has evidence of ring worm rash on his left lower extremity. The redness to his bilateral lower extremities is improving. He has a small skin tear/pressure injury on his left gluteal cleft. About 1/4 in in diameter. March 30, 2024: Reclining in bed. Snoring when I walked in. Remains on IV Lasix. Placed on fluid restriction. Will get wound care to look at this tear pressure injury to the gluteal cleft. Patient eating well. Had a bowel movement. On IV Ancef for cellulitis. Active Medications Acetaminophen (Acetaminophen Tab 325 Mg Tab) 650 mg PO Q6HR PRN PRN Reason: Fever and/ or Pain Last Admin: 03/30/24 12:51 Dose: 650 mg Albuterol Sulfate (Albuterol Hfa Inhaler) 2 puff INHALATION RT-Q6H PRN PRN Reason: Shortness Of Breath Or Wheezing Albuterol/Ipratropium (Ipratropium-Albuterol 3 Ml Neb) 3 ml INHALATION RT-QID PRN PRN Reason: Shortness Of Breath Or Wheezing Last Admin: 03/29/24 21:34 Dose: 3 ml Apixaban (Apixaban 5 Mg Tab) 5 mg PO BID [facility]; Protocol Last Admin: 03/30/24 20:00 Dose: 5 mg Budesonide/Formoterol Fumarate (Symbicort 160-4.5 Mcg Inhaler) 2 puff INHALATION RT-BID [facility] Last Admin: 03/30/24 08:41 Dose: 2 puff Clotrimazole (Clotrimazole 1% Cream 30 Gm Tube) 1 applic TOPICAL BID [facility]; Protocol Last Admin: 03/30/24 20:00 Dose: 1 applic Dapagliflozin (Dapagliflozin Propanediol 10 Mg Tablet) 10 mg PO DAILY [facility] Last Admin: 03/30/24 09:28 Dose: 10 mg Furosemide (Furosemide 10 Mg/Ml 4 Ml Vial) 40 mg IV Q12HR [facility] Last Admin: 03/30/24 20:00 Dose: 40 mg Cefazolin Sodium 2 gm/ Sodium (Chloride) 50 mls @ 100 mls/hr IVPB Q8H [facility] Last Admin: 03/30/24 20:00 Dose: 100 mls/hr Metoprolol Succinate (Metoprolol Succinate (Er) 50 Mg Tab.Er.24h) 50 mg PO DAILY [facility] Last Admin: 03/30/24 09:27 Dose: 50 mg Naloxone HCl (Naloxone 0.4 Mg/Ml 1 Ml Vial) 0.2 mg IV Q2M PRN PRN Reason: Opioid Reversal Nitroglycerin (Nitroglycerin Sl Tabs 0.4 Mg Tab) 0.4 mg SUBLINGUAL Q5M PRN PRN Reason: Chest Pain Ondansetron HCl (Ondansetron 4 Mg/2 Ml Vial) 4 mg IVP Q8HR PRN PRN Reason: Nausea And Vomiting Pantoprazole Sodium (Pantoprazole 40 Mg Tablet) 40 mg PO AC-BRKFST [facility] Last Admin: 03/30/24 05:48 Dose: 40 mg Spironolactone (Spironolactone 25 Mg Tab) 25 mg PO DAILY [facility] Last Admin: 03/30/24 09:27 Dose: 25 mg Past medical history to include: COPD, osteoarthritis, obstructive sleep apnea with UPPP, dry skin Social history: Lives with brother. Smoked for about 14 years stopped in 2006. Currently not employed. Used to work at [employer]. Physical examination: VITAL SIGNS: 98.3, 76, 20, 130/68, 92% room air GENERAL: BMI 64, reclining in bed EYES: Pupils equal. Conjunctiva normal. HEENT: External appearance of nose and ears normal, oral cavity grossly normal. NECK: JVD unable to assess masses not palpable. HEART: Heart sounds muffled; mild edema. LUNGS: Respiratory rate increased, diminished breath sounds ABDOMEN: Soft, nontender, liver spleen not palpable, no masses palpable. PSYCH: Alert and oriented x3; mood and affect normal NEUROLOGICAL: Cranial nerves grossly intact; no facial asymmetry, power and sensation grossly intact. DERMATOLOGICAL: Redness lower extremity. Cyanosis. Cracking of the heel. INVESTIGATIONS, reviewed in the clinical context: March 30, 2024: Potassium 4 BUN 14 creatinine 0.8. Procalcitonin 0.11 Previous labs 2D echocardiogram: EF 55 to 60%. Severe concentric LVH. Severely increased septal wall thickness. Assessment and plan: Acute on chronic congestive heart failure exacerbation from diastolic dysfunction EF 55 to 60% IV Lasix -Acute lower extremity cellulitis IV Ancef -COPD no previous smoker DuoNeb needed. Symbicort -Bilateral lower extremity xeroderma Topical care -Obesity hypoventilation syndrome/pickwickian syndrome -Obstructive sleep apnea with the patient-previously had UPPP -Paroxysmal atrial fibrillation, currently in sinus rhythm Lopressor. Eliquis. -Hypertensive heart disease with severe LVH Lopressor -Essential hypertension Lopressor -Bilateral knee arthralgia Tylenol when necessary -Morbid obesity BMI 64 Weight loss measures -Skin tear/pressure injury on the left gluteal cleft. OPTi foam and zinc barrier paste. Consult wound care -Chronic lower extremity venous insufficiency with skin changes -Full code Discussed with patient. Continue current medications. Switch to oral antibiotic tomorrow. Skin care. Consult wound care. Discussed with patient. Past Medical History Past Medical History: Atrial Fibrillation, Asthma, COPD, GERD/Reflux, Osteoarthritis (OA), Sleep Apnea/CPAP/BIPAP Additional Past Medical History / Comment(s): JEANIE/unable to tolerate cpap, pneumonias, bronchitis, chronic lower extremity lymphedema/redness/scabs, arthritis in multiple joints/chronic pain/chronic back pain History of Any Multi-Drug Resistant Organisms: None Reported Past Surgical History: Adenoidectomy, Appendectomy, Orthopedic Surgery, Tonsillectomy Additional Past Surgical History / Comment(s): Bilateral knee arthroscopy, UVPPP, carpal tunnel surgery, right shoulder surgery, colonoscopy/benign polypectomy. Past Anesthesia/Blood Transfusion Reactions: No Reported Reaction Past Psychological History: No Psychological Hx Reported Additional Psychological History / Comment(s): Pt has a brother/nephew who live with him. Pt uses crutches to ambulate. He drives. He has a nebulizer. Smoking Status: Former smoker Past Alcohol Use History: None Reported Additional Past Alcohol Use History / Comment(s): Pt started smoking in 1979 and quit smoking 12/09/2006. Past Drug Use History: None Reported
[2024-03-31 08:50] LABS: Blood Urea Nitrogen 15.2 mg/dL (9.0-27.0); Carbon Dioxide 33.3 mmol/L (21.6-31.8); Chloride 96 mmol/L (96-109); Glucose 119 mg/dL (70-110); Sodium 140 mmol/L (135-145)
--- NOTE | 2024-03-31 11:22 | P.PN ---
Subjective HISTORY OF PRESENT ILLNESS: 03/26/2024 48-year-old male with history of alcohol dependence, DVT, PE, paroxysmal atrial fibrillation, hypertension, dyslipidemia. He presented to the hospital because of substernal chest pressure like sensation like elephant sitting on his chest for last 2 to 3 days. His symptoms are not related to exertion. Patient reported that few weeks ago he was at [facility] for similar symptoms where he was admitted for ICU. He was told that he had intermittent atrial fibrillation. He also reported that he has prior history of PE and is on anticoagulation with Eliquis He drinks fifth of alcohol every day. On admission he had elevated D-dimer, low platelets of 114, low magnesium, hyponatremia, lipase of 543 serum alcohol of 367 CTA negative for PE ECG sinus tachycardia Echo from February 2024 EF 5560%, severe LVH, Heart cath 2022, normal coronary arteries, minimally elevated LVEDP 03/27/2024 Patient examined this morning at the bedside. Patient currently denies chest pain or pressure. He continues to report shortness of breath. He remains on IV Lasix. Vital signs are stable. 03/28/2024 Patient examined this morning at the bedside. Patient reports shortness of breath this morning. He remains on IV lasix. He reports he has been urinating quite a bit today. He reports a frequent cough that was productive yesterday but nonproductive today. 03/29/2024 Patient examined this morning at the bedside. He denies chest pain or pressure. Patient continues to report shortness of breath. Patient states that he took a shower this morning and feels winded at the time of examination. He continues to have lower extremity edema although improved. He remains on IV diuretics. Creatinine today 0.8. 03/30/2024 Patient examined this morning at the bedside. Patient reports improvement in his shortness of breath. He currently denies any chest pain or pressure. He remains on IV Lasix. Vital signs are stable. Creatinine 0.8. 03/31/2024 Patient examined this morning at the bedside. Patient reports improvement in his shortness of breath. He currently denies any chest pain or pressure. He remains on IV Lasix. Vital signs are stable. Creatinine 0.8. PHYSICAL EXAM: VITAL SIGNS: Reviewed. GENERAL: Well-developed in no acute distress. NECK: Supple. No JVD or thyromegaly LUNGS: Respirations even and unlabored. Lungs diminished bilaterally HEART: Regular rate and rhythm. S1 and S2 heard. EXTREMITIES: Normal range of motion. No clubbing or cyanosis. Peripheral pulses intact. Bilateral lower extremity edema noted with chronic skin changes ASSESSMENT: Shortness of breath Acute on chronic heart failure with preserved EF, 55 to 60% Paroxysmal atrial fibrillation Severe concentric LVH Chronic lower extremity edema History of asthma Former nicotine dependence Obstructive sleep apnea, not compliant with CPAP Morbid obesity: BMI 64.6 PLAN: Continue current cardiac medications Continue IV Lasix 40 mg every 12 hours. Hopefully transition to oral lasix tomorrow. Daily weights, accurate intake and output, and monitoring of kidney function Further recommendations pending patient course Nurse practitioner note has been reviewed by physician. Signing provider agrees with the documented findings, assessment, and plan of care documented by [facility] as a scribe. Objective - Vital Signs Vital signs: Vital Signs Temp 97.5 F L 03/31/24 08:00 Pulse 61 03/31/24 08:00 Resp 16 03/31/24 08:00 BP 128/76 03/31/24 08:00 Pulse Ox 92 L 03/31/24 08:00 FiO2 Intake & Output 03/30/24 03/31/24 03/31/24 18:59 06:59 18:59 Intake Total 118 Output Total 1849 2049 Balance -1731 -2049 Weight 194 kg Intake: Oral 118 Output: Urine 1849 2049 Other: Voiding Method Urinal # Voids 1 - Labs CBC & Chem 7: 03/27/24 07:24 03/31/24 06:03 Labs: Abnormal Lab Results - Last 24 Hours (Table) 03/30/24 03/30/24 Range/Units 07:09 07:09 Anion Gap 14.40 H (4.00-12.00) mmol/L Glucose 133 H (70-110) mg/dL Procalcitonin 0.11 H (0.02-0.09) ng/mL
[2024-03-31 14:02] VITALS: BMI 63.1
--- NOTE | 2024-03-31 16:06 | P.PN ---
Progress Note - Text Progress Note Date: 03/31/24 This is a pleasant 58 years old male with past medical history of multiple medical problems as below Presents because of worsening dyspnea and chest pain of 2 days duration Patient has chronic sore throat, he is complaining also from cough and phlegm His chest pain is central radiating to the back felt like someone sitting on his chest he rates the pain about 5/10 with pain getting worse when become more lying back or sitting up. Patient generally weak with mild headache and neck pain Patient complains from chronic left lower quadrant pain and cramping Denies urinary complaint no diarrhea or vomiting. At home he supposed to use CPAP but is not adherent with it because of his panic attack pt s on room air Labs unremarkable including CBC basic metabolic panel, liver enzymes, INR, troponin less than 0.012 x 3. EKG showing sinus rhythm with no significant ST-T changes Chest x-ray showing cardiomegaly with mild pulmonary vascular congestion Patient was started on IV Lasix 40 mg twice daily. Also he was placed on home dose of metoprolol 50 mg, Aldactone 25 mg and Farxiga with sliding scale. 03/27/2024 Patient evaluated in follow up. Patient remains short of breath and no further reports of chest pain at this time. He is continued on IV lasix 40 mg Q12 and has been diuresing well. Patient does complain of significant pain and itching to his lower extremities bilaterally noted to have significant erythema. 03/28/2024 Is evaluated today in follow-up in the medical floor. He continues to report shortness of breath however feels that this is mostly due to his body habitus and not so much the CHF at this point. He does continue on IV Lasix 40 mg every 12 hours. Cardiology is following this patient closely. He has diuresed well with 6 L of urine output off overnight. Remains on IV cefazolin with improvement to his erythema. His lower extremities are less painful as well. 03/29/2024 Patient is evaluated today in follow up. Remains on IV lasix 40 mg q12h. Patient remains significantly short of breath. He would benefit from PT/OT. He has evidence of ring worm rash on his left lower extremity. The redness to his bilateral lower extremities is improving. He has a small skin tear/pressure injury on his left gluteal cleft. About 1/4 in in diameter. March 30, 2024: Reclining in bed. Snoring when I walked in. Remains on IV Lasix. Placed on fluid restriction. Will get wound care to look at this tear pressure injury to the gluteal cleft. Patient eating well. Had a bowel movement. On IV Ancef for cellulitis. March 31, 2024: Up in the recliner. Breathing better. Patient placed on fluid restriction yesterday. Requesting 1 more day in the hospital. Being followed by cardiology. Active Medications Acetaminophen (Acetaminophen Tab 325 Mg Tab) 650 mg PO Q6HR PRN PRN Reason: Fever and/ or Pain Last Admin: 03/31/24 09:12 Dose: 650 mg Albuterol Sulfate (Albuterol Hfa Inhaler) 2 puff INHALATION RT-Q6H PRN PRN Reason: Shortness Of Breath Or Wheezing Albuterol/Ipratropium (Ipratropium-Albuterol 3 Ml Neb) 3 ml INHALATION RT-QID PRN PRN Reason: Shortness Of Breath Or Wheezing Last Admin: 03/29/24 21:34 Dose: 3 ml Apixaban (Apixaban 5 Mg Tab) 5 mg PO BID [facility]; Protocol Last Admin: 03/31/24 09:08 Dose: 5 mg Budesonide/Formoterol Fumarate (Symbicort 160-4.5 Mcg Inhaler) 2 puff INHALATION RT-BID [facility] Last Admin: 03/31/24 08:53 Dose: Not Given Clotrimazole (Clotrimazole 1% Cream 30 Gm Tube) 1 applic TOPICAL BID [facility]; Protocol Last Admin: 03/31/24 09:13 Dose: 1 applic Dapagliflozin (Dapagliflozin Propanediol 10 Mg Tablet) 10 mg PO DAILY [facility] Last Admin: 03/31/24 09:07 Dose: 10 mg Furosemide (Furosemide 10 Mg/Ml 4 Ml Vial) 40 mg IV Q12HR [facility] Last Admin: 03/31/24 09:08 Dose: 40 mg Cefazolin Sodium 2 gm/ Sodium (Chloride) 50 mls @ 100 mls/hr IVPB Q8H [facility] Last Admin: 03/31/24 12:45 Dose: 100 mls/hr Metoprolol Succinate (Metoprolol Succinate (Er) 50 Mg Tab.Er.24h) 50 mg PO DAILY [facility] Last Admin: 03/31/24 09:07 Dose: 50 mg Naloxone HCl (Naloxone 0.4 Mg/Ml 1 Ml Vial) 0.2 mg IV Q2M PRN PRN Reason: Opioid Reversal Nitroglycerin (Nitroglycerin Sl Tabs 0.4 Mg Tab) 0.4 mg SUBLINGUAL Q5M PRN PRN Reason: Chest Pain Ondansetron HCl (Ondansetron 4 Mg/2 Ml Vial) 4 mg IVP Q8HR PRN PRN Reason: Nausea And Vomiting Pantoprazole Sodium (Pantoprazole 40 Mg Tablet) 40 mg PO AC-BRKFST [facility] Last Admin: 03/31/24 05:37 Dose: 40 mg Spironolactone (Spironolactone 25 Mg Tab) 25 mg PO DAILY [facility] Last Admin: 03/31/24 09:07 Dose: 25 mg Past medical history to include: COPD, osteoarthritis, obstructive sleep apnea with UPPP, dry skin Social history: Lives with brother. Smoked for about 14 years stopped in 2006. Currently not employed. Used to work at [employer]. Physical examination: VITAL SIGNS: 97.6, 68, 16, 121 x 72, 93% room air GENERAL: Sitting up in the recliner EYES: Pupils equal. Conjunctiva normal. HEENT: External appearance of nose and ears normal, oral cavity grossly normal. NECK: JVD unable to assess masses not palpable. HEART: Heart sounds muffled; mild edema. LUNGS: Respiratory rate increased, diminished breath sounds ABDOMEN: Soft, nontender, liver spleen not palpable, no masses palpable. PSYCH: Alert and oriented x3; mood and affect normal NEUROLOGICAL: Cranial nerves grossly intact; no facial asymmetry, power and sensation grossly intact. DERMATOLOGICAL: Redness lower extremity. Cyanosis. Cracking of the heel. INVESTIGATIONS, reviewed in the clinical context: March 31, 2024: Potassium 4 creatinine 0.8 March 30, 2024: Potassium 4 BUN 14 creatinine 0.8. Procalcitonin 0.11 Previous labs 2D echocardiogram: EF 55 to 60%. Severe concentric LVH. Severely increased septal wall thickness. Assessment and plan: Acute on chronic congestive heart failure exacerbation from diastolic dysfunction EF 55 to 60%: Improving IV Lasix -Acute lower extremity cellulitis IV Ancef-changed to Keflex -COPD no previous smoker DuoNeb needed. Symbicort -Bilateral lower extremity xeroderma Topical care -Obesity hypoventilation syndrome/pickwickian syndrome -Obstructive sleep apnea with the patient-previously had UPPP -Paroxysmal atrial fibrillation, currently in sinus rhythm Lopressor. Eliquis. -Hypertensive heart disease with severe LVH Lopressor -Essential hypertension Lopressor -Bilateral knee arthralgia Tylenol when necessary -Morbid obesity BMI 64 Weight loss measures -Skin tear/pressure injury on the left gluteal cleft. OPTi foam and zinc barrier paste. Consult wound care -Chronic lower extremity venous insufficiency with skin changes -Full code Another 24 hours of IV Lasix. Changed to oral Keflex. Discussed with patient. Past Medical History Past Medical History: Atrial Fibrillation, Asthma, COPD, GERD/Reflux, Osteoarthritis (OA), Sleep Apnea/CPAP/BIPAP Additional Past Medical History / Comment(s): JEANIE/unable to tolerate cpap, pneumonias, bronchitis, chronic lower extremity lymphedema/redness/scabs, arthritis in multiple joints/chronic pain/chronic back pain History of Any Multi-Drug Resistant Organisms: None Reported Past Surgical History: Adenoidectomy, Appendectomy, Orthopedic Surgery, Tonsillectomy Additional Past Surgical History / Comment(s): Bilateral knee arthroscopy, UVPPP, carpal tunnel surgery, right shoulder surgery, colonoscopy/benign poly pectomy. Past Anesthesia/Blood Transfusion Reactions: No Reported Reaction Past Psychological History: No Psychological Hx Reported Additional Psychological History / Comment(s): Pt has a brother/nephew who live with him. Pt uses crutches to ambulate. He drives. He has a nebulizer. Smoking Status: Former smoker Past Alcohol Use History: None Reported Additional Past Alcohol Use History / Comment(s): Pt started smoking in 1979 and quit smoking 12/09/2006. Past Drug Use History: None Reported
[2024-03-31] MEDS: CEPHALEXIN 500 MG CAP PO SCH (17:05)
[2024-04-01 07:35] VITALS: PULSE 70
[2024-04-01 11:03] LABS: African American GFR (CKD) >90 (>60 ml/min/1.73 sqM); Anion Gap 6 mmol/L; Blood Urea Nitrogen 19 mg/dL (9-20); Calcium 8.6 mg/dL (8.4-10.2); Carbon Dioxide 34 mmol/L (22-30); Chloride 97 mmol/L (98-107); Glucose 219 mg/dL (74-99); Non-African American GFR(CKD) >90 (>60 ml/min/1.73 sqM); Potassium 3.6 mmol/L (3.5-5.1); Sodium 137 mmol/L (137-145)
--- NOTE | 2024-04-01 12:43 | P.PN ---
Subjective Progress Note Date: 04/01/24 HISTORY OF PRESENT ILLNESS: 03/26/2024 48-year-old male with history of alcohol dependence, DVT, PE, paroxysmal atrial fibrillation, hypertension, dyslipidemia. He presented to the hospital because of substernal chest pressure like sensation like elephant sitting on his chest for last 2 to 3 days. His symptoms are not related to exertion. Patient reported that few weeks ago he was at [facility] for similar symptoms where he was admitted for ICU. He was told that he had intermittent atrial fibrillation. He also reported that he has prior history of PE and is on anticoagulation with Eliquis He drinks fifth of alcohol every day. On admission he had elevated D-dimer, low platelets of 114, low magnesium, hyponatremia, lipase of 543 serum alcohol of 367 CTA negative for PE ECG sinus tachycardia Echo from February 2024 EF 5560%, severe LVH, Heart cath 2022, normal coronary arteries, minimally elevated LVEDP 03/27/2024 Patient examined this morning at the bedside. Patient currently denies chest pain or pressure. He continues to report shortness of breath. He remains on IV Lasix. Vital signs are stable. 03/28/2024 Patient examined this morning at the bedside. Patient reports shortness of breath this morning. He remains on IV lasix. He reports he has been urinating quite a bit today. He reports a frequent cough that was productive yesterday but nonproductive today. 03/29/2024 Patient examined this morning at the bedside. He denies chest pain or pressure. Patient continues to report shortness of breath. Patient states that he took a shower this morning and feels winded at the time of examination. He continues to have lower extremity edema although improved. He remains on IV diuretics. Creatinine today 0.8. 03/30/2024 Patient examined this morning at the bedside. Patient reports improvement in his shortness of breath. He currently denies any chest pain or pressure. He remains on IV Lasix. Vital signs are stable. Creatinine 0.8. 03/31/2024 Patient examined this morning at the bedside. Patient reports improvement in his shortness of breath. He currently denies any chest pain or pressure. He remains on IV Lasix. Vital signs are stable. Creatinine 0.8. 04/01/2024 He is ambulatory to the chair with crutches, nursing. Denies chest pain. Lower extremity edema appears better. Creat 0.68, K 3.6. PHYSICAL EXAM: VITAL SIGNS: Reviewed. GENERAL: Well-developed in no acute distress. NECK: Supple. No JVD or thyromegaly LUNGS: Respirations even and mild distress with activity. Lungs diminished bilaterally HEART: Regular rate and rhythm. S1 and S2 heard. EXTREMITIES: Normal range of motion. No clubbing or cyanosis. Peripheral pulses intact. Bilateral lower extremity edema noted with chronic skin changes ASSESSMENT: Shortness of breath Acute on chronic heart failure with preserved EF, 55 to 60% Paroxysmal atrial fibrillation Severe concentric LVH Chronic lower extremity edema History of asthma Former nicotine dependence Obstructive sleep apnea, not compliant with CPAP Morbid obesity: BMI 64.6 PLAN: Continue current cardiac medications Continue IV Lasix 40 mg every 12 hours for 1 more day and will reassess Daily weights, accurate intake and output, and monitoring of kidney function Further recommendations pending patient course Nurse practitioner note has been reviewed by physician. Signing provider agrees with the documented findings, assessment, and plan of care documented by [facility] as a scribe. Objective - Vital Signs Vital signs: Vital Signs Temp 97.9 F 04/01/24 07:26 Pulse 70 04/01/24 07:26 Resp 16 04/01/24 07:26 BP 117/73 04/01/24 07:26 Pulse Ox 93 L 04/01/24 07:26 FiO2 Intake & Output 03/31/24 04/01/24 04/01/24 18:59 06:59 18:59 Intake Total 236 118 Output Total 1550 1850 600 Balance -9195 -8781 -652 Weight 194 kg 194.4 kg Intake: Oral 236 118 Output: Urine 1550 1850 600 Other: Voiding Method Urinal Urinal # Voids 1 1 # Bowel Movements 1 1 - Labs CBC & Chem 7: 03/27/24 07:24 04/01/24 10:33
[2024-04-01 15:01] VITALS: BP 116/68; RESP 18; TEMP 97.4
--- NOTE | 2024-04-01 17:17 | P.DS ---
Providers Date of admission: 03/27/24 07:43 Expected date of discharge: 04/01/24 Attending physician: Kiran Quiroz Consults: 03/25/24 19:14 Consult Physician Routine Consulting Provider: Patricia Lowry Consult Reason/Comments: chf Do you want consulting provider notified?: Yes Primary care physician: [facility] Course: This is a pleasant 58 years old male with past medical history of multiple medical problems as below Presents because of worsening dyspnea and chest pain of 2 days duration Patient has chronic sore throat, he is complaining also from cough and phlegm His chest pain is central radiating to the back felt like someone sitting on his chest he rates the pain about 5/10 with pain getting worse when become more lying back or sitting up. Patient generally weak with mild headache and neck pain Patient complains from chronic left lower quadrant pain and cramping Denies urinary complaint no diarrhea or vomiting. At home he supposed to use CPAP but is not adherent with it because of his panic attack pt s on room air Labs unremarkable including CBC basic metabolic panel, liver enzymes, INR, troponin less than 0.012 x 3. EKG showing sinus rhythm with no significant ST-T changes Chest x-ray showing cardiomegaly with mild pulmonary vascular congestion Patient was started on IV Lasix 40 mg twice daily. Also he was placed on home dose of metoprolol 50 mg, Aldactone 25 mg and Farxiga with sliding scale. 03/27/2024 Patient evaluated in follow up. Patient remains short of breath and no further reports of chest pain at this time. He is continued on IV lasix 40 mg Q12 and has been diuresing well. Patient does complain of significant pain and itching to his lower extremities bilaterally noted to have significant erythema. 03/28/2024 Is evaluated today in follow-up in the medical floor. He continues to report shortness of breath however feels that this is mostly due to his body habitus and not so much the CHF at this point. He does continue on IV Lasix 40 mg every 12 hours. Cardiology is following this patient closely. He has diuresed well with 6 L of urine output off overnight. Remains on IV cefazolin with improvement to his erythema. His lower extremities are less painful as well. 03/29/2024 Patient is evaluated today in follow up. Remains on IV lasix 40 mg q12h. Patient remains significantly short of breath. He would benefit from PT/OT. He has evidence of ring worm rash on his left lower extremity. The redness to his bilateral lower extremities is improving. He has a small skin tear/pressure injury on his left gluteal cleft. About 1/4 in in diameter. March 30, 2024: Reclining in bed. Snoring when I walked in. Remains on IV Lasix. Placed on fluid restriction. Will get wound care to look at this tear pressure injury to the gluteal cleft. Patient eating well. Had a bowel movement. On IV Ancef for cellulitis. March 31, 2024: Up in the recliner. Breathing better. Patient placed on fluid restriction yesterday. Requesting 1 more day in the hospital. Being followed by cardiology. April 01, 2024: Up in recliner. Eating well. Stable. Discussed with patient about fluid restriction upon going home. Follow-up with cardiology outpatient. Past medical history to include: COPD, osteoarthritis, obstructive sleep apnea with UPPP, dry skin Social history: Lives with brother. Smoked for about 14 years stopped in 2006. Currently not employed. Used to work at [employer]. Physical examination: VITAL SIGNS: 97.4, 70, 18, 1 one 6 x 68, 92% room air GENERAL: Sitting up in the recliner EYES: Pupils equal. Conjunctiva normal. HEENT: External appearance of nose and ears normal, oral cavity grossly normal. NECK: JVD unable to assess masses not palpable. HEART: Heart sounds muffled; mild edema. LUNGS: Respiratory rate normal, diminished breath sounds ABDOMEN: Soft, nontender, liver spleen not palpable, no masses palpable. PSYCH: Alert and oriented x3; mood and affect normal NEUROLOGICAL: Cranial nerves grossly intact; no facial asymmetry, power and sensation grossly intact. DERMATOLOGICAL: Redness lower extremity. Cyanosis. Cracking of the heel. INVESTIGATIONS, reviewed in the clinical context: April 01, 2024: Potassium 3.6 creatinine 0.68 March 31, 2024: Potassium 4 creatinine 0.8 March 30, 2024: Potassium 4 BUN 14 creatinine 0.8. Procalcitonin 0.11 Previous labs 2D echocardiogram: EF 55 to 60%. Severe concentric LVH. Severely increased septal wall thickness. Assessment and plan: Acute on chronic congestive heart failure exacerbation from diastolic dysfunction EF 55 to 60%: Moved Discharged on Lasix 80 mg a day Fluid restriction 1800 cc a day -Acute lower extremity cellulitis IV Ancef-changed to Keflex Discharged on 3 more days of Keflex -COPD no previous smoker DuoNeb needed. Symbicort -Bilateral lower extremity xeroderma Topical care -Obesity hypoventilation syndrome/pickwickian syndrome -Obstructive sleep apnea with the patient-previously had UPPP -Paroxysmal atrial fibrillation, currently in sinus rhythm Lopressor. Eliquis. -Hypertensive heart disease with severe LVH Lopressor -Essential hypertension Lopressor -Bilateral knee arthralgia Tylenol when necessary -Morbid obesity BMI 64 Weight loss measures -Skin tear/pressure injury on the left gluteal cleft. OPTi foam and zinc barrier paste. Consult wound care -Chronic lower extremity venous insufficiency with skin changes -Full code Disposition: Home Past Medical History Past Medical History: Atrial Fibrillation, Asthma, COPD, GERD/Reflux, Osteoarthritis (OA), Sleep Apnea/CPAP/BIPAP Additional Past Medical History / Comment(s): JEANIE/unable to tolerate cpap, pneumonias, bronchitis, chronic lower extremity lymphedema/redness/scabs, arthritis in multiple joints/chronic pain/chronic back pain History of Any Multi-Drug Resistant Organisms: None Reported Past Surgical History: Adenoidectomy, Appendectomy, Orthopedic Surgery, Tonsillectomy Additional Past Surgical History / Comment(s): Bilateral knee arthroscopy, UVPPP, carpal tunnel surgery, right shoulder surgery, colonoscopy/benign polypectomy. Past Anesthesia/Blood Transfusion Reactions: No Reported Reaction Past Psychological History: No Psychological Hx Reported Additional Psychological History / Comment(s): Pt has a brother/nephew who live with him. Pt uses crutches to ambulate. He drives. He has a nebulizer. Smoking Status: Former smoker Past Alcohol Use History: None Reported Additional Past Alcohol Use History / Comment(s): Pt started smoking in 1979 and quit smoking 12/09/2006. Past Drug Use History: None Reported Plan - Discharge Summary Discharge Rx Participant: Yes New Discharge Prescriptions: New Pantoprazole [Protonix] 40 mg PO AC-BRKFST #30 tab SILVER sulfADIAZINE CREAM [Silvadene Cream] 1 applic TOPICAL BID each Metoprolol Succinate (ER) [Toprol XL] 50 mg PO DAILY #30 tab Dapagliflozin Propanediol [Farxiga] 10 mg PO DAILY #30 tab Cephalexin [Keflex] 500 mg PO QID #12 cap Clotrimazole Cream [Lotrimin Cream] 1 applic TOPICAL BID #1 each Continue Spironolactone [Aldactone] 25 mg PO DAILY Umeclidinium [place] [Incruse Ellipta] 1 puff INHALATION RT-DAILY Budesonide/Formoterol Fumarate [Breyna 160-4.5 Mcg Inhaler] 1 puff INHALATION RT-DAILY Furosemide [Lasix] 80 mg PO DAILY Meloxicam 7.5 mg PO DAILY Apixaban [Eliquis] 5 mg PO BID Albuterol Inhaler [Ventolin Hfa Inhaler] 1 - 2 puff INHALATION RT-Q6H PRN PRN Reason: Shortness Of Breath Or Wheezing Fluticasone Propion/Salmeterol [Advair Hfa 230-21 Mcg Inhaler] 2 puff INHALATION RT-BID Nitroglycerin Sl Tabs [Nitrostat] 0.4 mg SUBLINGUAL Q5M PRN #20 tab PRN Reason: Chest Pain Discontinued Metoprolol Tartrate [Lopressor] 25 mg PO BID Discharge Medication List Spironolactone [Aldactone] 25 mg PO DAILY 12/25/20 [History] Meloxicam 7.5 mg PO DAILY 08/05/21 [History] Umeclidinium [place] [Incruse Ellipta] 1 puff INHALATION RT-DAILY 12/18/23 [History] Albuterol Inhaler [Ventolin Hfa Inhaler] 1 - 2 puff INHALATION RT-Q6H PRN 02/06/24 [History] Apixaban [Eliquis] 5 mg PO BID 02/06/24 [History] Budesonide/Formoterol Fumarate [Breyna 160-4.5 Mcg Inhaler] 1 puff INHALATION RT-DAILY 02/06/24 [History] Fluticasone Propion/Salmeterol [Advair Hfa 230-21 Mcg Inhaler] 2 puff INHALATION RT-BID 02/06/24 [History] Furosemide [Lasix] 80 mg PO DAILY 02/24/24 [History] Nitroglycerin Sl Tabs [Nitrostat] 0.4 mg SUBLINGUAL Q5M PRN #20 tab 02/25/24 [Rx] Cephalexin [Keflex] 500 mg PO QID #12 cap 04/01/24 [Rx] Clotrimazole Cream [Lotrimin Cream] 1 applic TOPICAL BID #1 each 04/01/24 [Rx] Dapagliflozin Propanediol [Farxiga] 10 mg PO DAILY #30 tab 04/01/24 [Rx] Metoprolol Succinate (ER) [Toprol XL] 50 mg PO DAILY #30 tab 04/01/24 [Rx] Pantoprazole [Protonix] 40 mg PO AC-BRKFST #30 tab 04/01/24 [Rx] SILVER sulfADIAZINE CREAM [Silvadene Cream] 1 applic TOPICAL BID each 04/01/24 [Rx] Follow up Appointment(s)/Referral(s): Alfredo Hope DO [Primary Care Provider] - 1-2 days Rajinder Alexis DO [STAFF PHYSICIAN] - 1 Week Patient Instructions/Handouts: Heart Failure (DC), Crutch Instructions (DC), Chronic Wounds (DC) Activity/Diet/Wound Care/Special Instructions: fluidrestrict 1800 cc/day Discharge Disposition: HOME SELF-CARE
== END 2024-03-27 08:07 | disposition home or self-care (01) | DRG 291 ==
LOC: EC 16:31 → UNDOADMOB 19:14 → 3SCARD 19:14 → OBSVTOIN 19:15 → 3SCARD 19:15 → 6NMEDSUR 03-26 08:39 → 3SCARD 03-26 08:39 → 6NMEDSUR 03-26 10:07 → OBSVTOIN 03-27 07:43 → INTOOBSV 03-27 07:43 → UNDODISIN 04-01 15:53
PROVIDERS: ADMIT Hospitalist; ATTEND Hospitalist
DX: I11.0 Hypertensive heart disease with heart failure (principal); I50.33 Acute on chronic diastolic (congestive) heart failure; E66.2 Morbid (severe) obesity with alveolar hypoventilation; Z68.44 Body mass index [BMI] 60.0-69.9, adult; L97.112 Non-pressure chronic ulcer of right thigh with fat layer exposed; E87.1 Hypo-osmolality and hyponatremia; L03.115 Cellulitis of right lower limb; L03.116 Cellulitis of left lower limb; D69.6 Thrombocytopenia, unspecified; F10.20 Alcohol dependence, uncomplicated; I48.0 Paroxysmal atrial fibrillation; L89.151 Pressure ulcer of sacral region, stage 1; Z79.01 Long term (current) use of anticoagulants; J44.89 Other specified chronic obstructive pulmonary disease; Z91.198 Patient's noncompliance with other medical treatment and regimen for other reason; Y90.8 Blood alcohol level of 240 mg/100 ml or more; F41.0 Panic disorder [episodic paroxysmal anxiety]; K21.9 Gastro-esophageal reflux disease without esophagitis; M19.90 Unspecified osteoarthritis, unspecified site; I89.0 Lymphedema, not elsewhere classified; G89.29 Other chronic pain; M54.9 Dorsalgia, unspecified; J31.2 Chronic pharyngitis; L85.0 Acquired ichthyosis; I87.2 Venous insufficiency (chronic) (peripheral); M17.0 Bilateral primary osteoarthritis of knee; B35.4 Tinea corporis; E83.42 Hypomagnesemia; Z86.711 Personal history of pulmonary embolism; Z79.1 Long term (current) use of non-steroidal anti-inflammatories (NSAID); Z79.899 Other long term (current) drug therapy; Z79.51 Long term (current) use of inhaled steroids; Z79.84 Long term (current) use of oral hypoglycemic drugs; Z88.8 Allergy status to other drugs, medicaments and biological substances; Z87.891 Personal history of nicotine dependence; Z86.718 Personal history of other venous thrombosis and embolism; Z79.82 Long term (current) use of aspirin
CPT/HCPCS: 36415; 71046; 80048; 80053; 83690; 83735; 83880; 84145; 84484; 85025; 85610; 85730; 93005; 94640; 94760; 96374; 96375; 96376; 99291

== ENCOUNTER 2024-04-08 23:26 | Observation (INO) | payer MEDICARE, OTHER ==
--- NOTE | 2024-04-08 23:58 | ED ---
Chest Pain HPI - General Chief Complaint: Chest Pain Stated Complaint: chest pain Time Seen by Provider: 04/08/24 23:37 Source: patient, EMS Mode of arrival: EMS - History of Present Illness Initial Comments: 58-year-old male with past medical history significant for PE, paroxysmal A-fib, hypertension, dyslipidemia, obesity presenting to the ED with complaints of chest pressure onset today. Patient describes a pressure in the middle of his chest. Pain occasionally seems to radiate to his right shoulder. Patient notes associated shortness of breath with this. Does also note some cough over the last few days as well. No fever or chills. No abdominal pain. No nausea or vomiting. No change in bowel or bladder habits. Was given chewable aspirin and nitro by EMS prior to arrival which she does report seem to improve pain. No other complaints at this time. - Related Data Home Medications Medication Instructions Recorded Confirmed Spironolactone [Aldactone] 25 mg PO DAILY 12/25/20 03/26/24 Meloxicam 7.5 mg PO DAILY 08/05/21 03/26/24 Umeclidinium [place] [Incruse 1 puff INHALATION RT-DAILY 12/18/23 03/26/24 Ellipta] Albuterol Inhaler [Ventolin Hfa 1 - 2 puff INHALATION RT-Q6H PRN 02/06/24 03/26/24 Inhaler] Apixaban [Eliquis] 5 mg PO BID 02/06/24 03/26/24 Budesonide/Formoterol Fumarate 1 puff INHALATION RT-DAILY 02/06/24 03/26/24 [Breyna 160-4.5 Mcg Inhaler] Fluticasone Propion/Salmeterol 2 puff INHALATION RT-BID 02/06/24 03/26/24 [Advair Hfa 230-21 Mcg Inhaler] Furosemide [Lasix] 80 mg PO DAILY 02/24/24 03/26/24 Previous Rx's Medication Instructions Recorded Nitroglycerin Sl Tabs [Nitrostat] 0.4 mg SUBLINGUAL Q5M PRN #20 tab 02/25/24 Cephalexin [Keflex] 500 mg PO QID #12 cap 04/01/24 Clotrimazole Cream [Lotrimin Cream] 1 applic TOPICAL BID #1 each 04/01/24 Dapagliflozin Propanediol [Farxiga] 10 mg PO DAILY #30 tab 04/01/24 Metoprolol Succinate (ER) [Toprol 50 mg PO DAILY #30 tab 04/01/24 XL] Pantoprazole [Protonix] 40 mg PO AC-BRKFST #30 tab 04/01/24 SILVER sulfADIAZINE CREAM 1 applic TOPICAL BID each 04/01/24 [Silvadene Cream] Allergies Allergy/AdvReac Type Severity Reaction Status Date / Time isosorbide [From Imdur] AdvReac headache & Verified 04/08/24 23:51 blurred vision metoprolol [From Toprol XL] AdvReac headache & Verified 04/08/24 23:51 blurred vision Review of Systems ROS Statement: Those systems with pertinent positive or pertinent negative responses have been documented in the HPI. ROS Other: All systems not noted in ROS Statement are negative. Past Medical History Past Medical History: Atrial Fibrillation, Asthma, COPD, GERD/Reflux, Osteoarthritis (OA), Pneumonia, Sleep Apnea/CPAP/BIPAP Additional Past Medical History / Comment(s): JEANIE/unable to tolerate cpap, pneumonias, bronchitis, chronic lower extremity lymphedema/redness/scabs, arthritis in multiple joints/chronic pain/chronic back pain History of Any Multi-Drug Resistant Organisms: None Reported Past Surgical History: Adenoidectomy, Appendectomy, Orthopedic Surgery, Tonsillectomy Additional Past Surgical History / Comment(s): Bilateral knee arthroscopy, UVPPP, carpal tunnel surgery, right shoulder surgery, colonoscopy/benign polypectomy. Past Anesthesia/Blood Transfusion Reactions: No Reported Reaction Past Psychological History: No Psychological Hx Reported Smoking Status: Former smoker Past Alcohol Use History: None Reported Past Drug Use History: None Reported - Past Family History Father History Unknown: Yes Family Medical History: Cancer Additional Family Medical History / Comment(s): . Mother History Unknown: Yes Family Medical History: Deep Vein Thrombosis (DVT) General Exam General appearance: alert, in no apparent distress Eye exam: Present: normal appearance Neck exam: Present: normal inspection Respiratory exam: Present: other (Crackles bilateral lower lung escalante). Absent: respiratory distress, accessory muscle use Cardiovascular Exam: Present: regular rate GI/Abdominal exam: Present: soft, normal bowel sounds. Absent: distended, tenderness, guarding, rebound, rigid Neurological exam: Present: alert, oriented X3 Skin exam: Present: warm, dry Course Vital Signs 04/08/24 04/09/24 04/09/24 23:42 02:23 05:37 Temperature 97.5 F L 97.6 F Pulse Rate 67 70 75 Respiratory 18 18 17 Rate Blood Pressure 111/61 111/63 113/61 O2 Sat by Pulse 95 96 95 Oximetry Chest Pain MDM - MDM Was pt. sent in by a medical professional or institution (, PA, PROPERTY DISPOSAL MANAGER, urgent care, hospital, or jail...) When possible be specific @ -No Did you speak to anyone other than the patient for history (EMS, parent, family, police, friend...)? What history was obtained from this source @ -No Did you review nursing and triage notes (agree or disagree)? Why? @ -I reviewed and agree with nursing and triage notes Were old charts reviewed (outside hosp., previous admission, EMS record, old EKG, old radiological studies, urgent care reports/EKG's, jail records)? Report findings @ -Reviewed prior admission. Revealed history of DVT, PE, paroxysmal A-fib, hypertension, dyslipidemia. Patient on Eliquis. CTA at that time negative for PE. Echo from 2023 showed EF 55 to 60% with severe left ventricular hypertrophy. Differential Diagnosis (chest pain, altered mental status, abdominal pain women, abdominal pain men, vaginal bleeding, weakness, fever, dyspnea, syncope, headache, dizziness, GI bleed, back pain, seizure, CVA, palpatations, mental health, musculoskeletal)? @ -Differential Chest Pain: Stable Angina, Unstable Angina, STEMI, NSTEMI Aortic Dissection, Pneumothorax, Musculoskeletal, Esophageal Spasm GERD, Cholecystitis, Pancreatitis, Zoster, this is not meant to be an all-inclusive list. EKG interpreted by me (3pts min.). @ -EKG interpreted me showing a sinus rhythm without acute ST or T wave changes at a rate of 71 bpm. MA 154, QRS 121, QT/QTc 400/427. X-rays interpreted by me (1pt min.). @ -Chest x-ray interpreted by me which revealed no evidence of acute finding. CT interpreted by me (1pt min.). @ -None done U/S interpreted by me (1pt. min.). @ -None done What testing was considered but not performed or refused? (CT, X-rays, U/S, labs)? Why? @ -None What meds were considered but not given or refused? Why? @ -None Did you discuss the management of the patient with other professionals (professionals i.e. , PA, PROPERTY DISPOSAL MANAGER, lab, RT, psych nurse, social worker clinical, meat packer, teacher, protocol officer, case maker)? Give summary @ -No Was smoking cessation discussed for >3mins.? @ -No Was critical care preformed (if so, how long)? @ -No Were there social determinants of health that impacted care today? How? (Homelessness, low income, unemployed, alcoholism, drug addiction, transportation, low edu. Level, literacy, decrease access to med. care, alf, rehab)? @ -No Was there de-escalation of care discussed even if they declined (Discuss DNR or withdrawal of care, Hospice)? DNR status @ -No What co-morbidities impacted this encounter? (DM, HTN, Smoking, COPD, CAD, Cancer, CVA, ARF, Chemo, Hep., AIDS, mental health diagnosis, sleep apnea, morbid obesity)? @ -PE, paroxysmal A-fib, hypertension, dyslipidemia, obesity Was patient admitted / discharged? Hospital course, mention meds given and route, prescriptions, significant lab abnormalities, going to OR and other pertinent info. @ -Admission 58-year-old male presenting to the ED with complaints of chest pressure with some associated dyspnea onset today. Laboratory studies reviewed. CBC largely unremarkable. Chemistry panel largely unremarkable. Troponin x 2 undetectable. BNP 244. Chest x-ray revealed no evidence of acute finding. Patient will be admitted to observation with consult to cardiology with serial troponins. Undiagnosed new problem with uncertain prognosis? @ -No Drug Therapy requiring intensive monitoring for toxicity (Heparin, Nitro, Insulin, Cardizem)? @ -No Were any procedures done? @ -No Diagnosis/symptom? @ -Chest pain Acute, or Chronic, or Acute on Chronic? @ -Acute Uncomplicated (without systemic symptoms) or Complicated (systemic symptoms)? @ -Complicated Side effects of treatment? @ -No Exacerbation, Progression, or Severe Exacerbation? @ -No Poses a threat to life or bodily function? How? (Chest pain, [place], [place], pneumonia, PE, COPD, DKA, ARF, appy, cholecystitis, CVA, Diverticulitis, Homicidal, Suicidal, threat to staff... and all critical care pts) @ -Possibly, however at this time unlikely Disposition Clinical Impression: Chest pain Disposition: ADMITTED IP TO THIS HOSP Referrals: None,Stated [REFERRING] - 1-2 days
[2024-04-09 00:01] LABS: Basophils % (A) 0 %; Eosinophils # (A) 0.3 k/uL (0-0.7); Eosinophils % (A) 3 %; HGB 12.8 gm/dL (13.0-17.5); Hypochromasia Slight; Lymphocytes # (A) 1.2 k/uL (1.0-4.8); Lymphocytes % (A) 12 %; MCH 26.7 pg (25.0-35.0); MCHC 31.3 g/dL (31.0-37.0); MCV 85.4 fL (80.0-100.0); Mean Platelet Volume 7.4; Monocytes # (A) 0.4 k/uL (0-1.0); Monocytes % (A) 5 %; Neutrophils # (A) 7.3 k/uL (1.3-7.7); Neutrophils % (A) 78 %; Platelet Count 257 k/uL (150-450); RDW 14.7 % (11.5-15.5); WBC 9.4 k/uL (3.8-10.6)
[2024-04-09 00:27] LABS: INR 0.9 (<1.2); Partial Thromboplastin Time 26.1 sec (22.0-30.0); Prothrombin Time 9.9 sec (10.0-12.5)
[2024-04-09 00:37] LABS: ALT 14 U/L (4-49); AST 20 U/L (17-59); African American GFR (CKD) >90 (>60 ml/min/1.73 sqM); Albumin 3.5 g/dL (3.5-5.0); Alkaline Phosphatase 83 U/L (38-126); Anion Gap 8 mmol/L; Blood Urea Nitrogen 26 mg/dL (9-20); Carbon Dioxide 28 mmol/L (22-30); Chloride 102 mmol/L (98-107); Glucose 142 mg/dL (74-99); Magnesium 1.9 mg/dL (1.6-2.3); Non-African American GFR(CKD) >90 (>60 ml/min/1.73 sqM); Potassium 4.2 mmol/L (3.5-5.1); Sodium 138 mmol/L (137-145); Total Bilirubin 0.5 mg/dL (0.2-1.3); Total Protein 5.8 g/dL (6.3-8.2)
[2024-04-09 00:46] LABS: NT-Pro-B-Type Natriuretic Pept 244 pg/mL
--- NOTE | 2024-04-09 01:51 | XR ---
EXAM: XR Chest, 2 Views CLINICAL HISTORY: ITS.REASON XR Reason: Chest Pain TECHNIQUE: Frontal and lateral views of the chest. COMPARISON: CXR January 07, 2024. FINDINGS: Lungs: Unremarkable. No consolidation. Pleural space: Unremarkable. No pneumothorax. Heart: Cardiomegaly. Mediastinum: Unremarkable. Normal mediastinal contour. Bones/joints: Unremarkable. No acute fracture. IMPRESSION: No acute findings in the chest.
[2024-04-09] MEDS ORDERED: NALOXONE 0.4 MG/ML 1 ML VIAL IV PRN (06:20)
[2024-04-09] MEDS ORDERED: ONDANSETRON 4 MG/2 ML VIAL IVP PRN (06:20)
[2024-04-09] MEDS: ACETAMINOPHEN TAB 325 MG TAB PO PRN (11:08)
[2024-04-09] MEDS ORDERED: ALBUTEROL NEBULIZED 2.5 MG/3 ML INHALATION PRN (11:34)
[2024-04-09] MEDS ORDERED: NITROGLYCERIN SL TABS 0.4 MG TAB SUBLINGUAL PRN (11:34)
--- NOTE | 2024-04-09 11:44 | P.HPIM ---
History of Present Illness Patient is a 58-year-old male morbidly obese obesity hypoventilation syndrome, sleep apnea although never tested for sleep apnea came in with complaints of chest pressure-like sensation radiating from the back to the front without any other radiation denies any lightheadedness diaphoresis constant moderate pressure-like sensation CT chest x-ray did not show any significant abnormality. D-dimer will be ordered patient has some pleuritic component of chest pain chest pain is not associated with food. Patient had multiple hospitalizations and had a cardiac catheterization recently which did not show any coronary occlusive disease EKG did not show any significant abnormality troponins are negative. Patient used to smoke does carry the diagnosis of COPD but not in COPD exacerbation at this time. Patient states he is short of breath as well but patient has obesity hypoventilation syndrome does not use any oxygen at home in the past did not qualify for home oxygen will be evaluated for home oxygen today. Patient was eval by cardiology awaiting their recommendations. REVIEW OF SYSTEMS: CONSTITUTIONAL: No fever, no malaise, no fatigue. HEENT: No recent visual problems or hearing problems. Denied any sore throat. CARDIOVASCULAR: No orthopnea, PND, no palpitations, no syncope. PULMONARY: no hemoptysis. GASTROINTESTINAL: No diarrhea, no nausea, no vomiting, no abdominal pain. NEUROLOGICAL: No headaches, no weakness, no numbness. HEMATOLOGICAL: Denies any bleeding or petechiae. GENITOURINARY: Denies any burning micturition, frequency, or urgency. MUSCULOSKELETAL/RHEUMATOLOGICAL: Denies any joint pain, swelling, or any muscle pain. ENDOCRINE: Denies any polyuria or polydipsia. The rest of the 14-point review of systems is negative. PHYSICAL EXAMINATION: GENERAL: The patient is alert and oriented x3, not in any acute distress. Well developed, well nourished. Morbidly obese HEENT: Pupils are round and equally reacting to light. EOMI. No scleral icterus. No conjunctival pallor. Normocephalic, atraumatic. No pharyngeal erythema. No thyromegaly. CARDIOVASCULAR: S1 and S2 present. No murmurs, rubs, or gallops. PULMONARY: Chest is clear to auscultation, no wheezing or crackles. ABDOMEN: Soft, nontender, nondistended, normoactive bowel sounds. No palpable organomegaly. MUSCULOSKELETAL: No joint swelling or deformity. EXTREMITIES: No cyanosis, clubbing, or pedal edema. NEUROLOGICAL: Gross neurological examination did not reveal any focal deficits. SKIN: No rashes. Assessment and plan -Chest pain rule out acute coronary syndromes patient has recent cardiac catheterization with clean coronaries patient chest pain is probably musculoskeletal in nature if cleared by cardiology patient will be discharged today . Will rule out pulmonary embolism with a D-dimer as well. -Shortness of breath secondary to obesity hypoventilation syndrome patient will be evaluated for home O2 evaluation if he requires oxygen with arrange for oxygen and then will be discharged -History of hypoventilation syndrome/pickwickian syndrome weight loss counseling was provided -Obstructive sleep apnea -Paroxysmal atrial fibrillation: Currently in sinus rhythm on Lopressor and Eliquis which will be resumed and he can continue the same at home -Hypertensive heart disease, diastolic dysfunction is on diuretics which will be resumed patient is not in heart failure exacerbation at this time -Essential hypertension: Patient is actually hypotensive at this time -Severe osteoarthritis secondary to morbid obesity -Morbid obesity -Skin. In the gluteal fold for which patient was given Optifoam zinc barrier and Keflex which will be resumed and he will continue the same at home -Chronic venous insufficiency Patient will be discharged if cleared by cardiology today, if D-dimer is negative. Text Past Medical History Past Medical History: Atrial Fibrillation, Asthma, COPD, GERD/Reflux, Osteoarthritis (OA), Pneumonia, Sleep Apnea/CPAP/BIPAP Additional Past Medical History / Comment(s): JEANIE/unable to tolerate cpap, pneumonias, bronchitis, chronic lower extremity lymphedema/redness/scabs, arthritis in multiple joints/chronic pain/chronic back pain History of Any Multi-Drug Resistant Organisms: None Reported Past Surgical History: Adenoidectomy, Appendectomy, Orthopedic Surgery, Tonsillectomy Additional Past Surgical History / Comment(s): Bilateral knee arthroscopy, UVPPP, carpal tunnel surgery, right shoulder surgery, colonoscopy/benign po lypectomy. Past Anesthesia/Blood Transfusion Reactions: No Reported Reaction Past Psychological History: No Psychological Hx Reported Smoking Status: Former smoker Past Alcohol Use History: None Reported Past Drug Use History: None Reported - Past Family History Father History Unknown: Yes Family Medical History: Cancer Additional Family Medical History / Comment(s): . Mother History Unknown: Yes Family Medical History: Deep Vein Thrombosis (DVT) Medications and Allergies Home Medications Medication Instructions Recorded Confirmed Type Spironolactone [Aldactone] 25 mg PO DAILY 12/25/20 04/09/24 History Meloxicam 7.5 mg PO DAILY 08/05/21 04/09/24 History Umeclidinium [place] [Incruse 1 puff INHALATION RT-DAILY 12/18/23 04/09/24 History Ellipta] Albuterol Inhaler [Ventolin Hfa 1 - 2 puff INHALATION RT-Q6H PRN 02/06/24 04/09/24 History Inhaler] Apixaban [Eliquis] 5 mg PO BID 02/06/24 04/09/24 History Budesonide/Formoterol Fumarate 1 puff INHALATION RT-DAILY 02/06/24 04/09/24 History [Breyna 160-4.5 Mcg Inhaler] Fluticasone Propion/Salmeterol 2 puff INHALATION RT-BID 02/06/24 04/09/24 History [Advair Hfa 230-21 Mcg Inhaler] Furosemide [Lasix] 80 mg PO DAILY 02/24/24 04/09/24 History Nitroglycerin Sl Tabs [Nitrostat] 0.4 mg SUBLINGUAL Q5M PRN #20 tab 02/25/24 04/09/24 Rx Cephalexin [Keflex] 500 mg PO QID #12 cap 04/01/24 04/09/24 Rx Clotrimazole Cream [Lotrimin Cream] 1 applic TOPICAL BID #1 each 04/01/24 04/09/24 Rx Dapagliflozin Propanediol [Farxiga] 10 mg PO DAILY #30 tab 04/01/24 04/09/24 Rx Metoprolol Succinate (ER) [Toprol 50 mg PO DAILY #30 tab 04/01/24 04/09/24 Rx XL] Pantoprazole [Protonix] 40 mg PO AC-BRKFST #30 tab 04/01/24 04/09/24 Rx SILVER sulfADIAZINE CREAM 1 applic TOPICAL BID each 04/01/24 04/09/24 Rx [Silvadene Cream] Allergies Allergy/AdvReac Type Severity Reaction Status Date / Time isosorbide [From Imdur] AdvReac headache & Verified 04/09/24 09:39 blurred vision metoprolol [From Toprol XL] AdvReac headache & Verified 04/09/24 09:39 blurred vision Physical Exam Vitals: Vital Signs Temp Pulse Resp BP Pulse Ox 04/09/24 09:46 95 04/09/24 05:37 97.6 F 75 17 113/61 95 04/09/24 02:23 70 18 111/63 96 04/08/24 23:42 97.5 F L 67 18 111/61 95 Intake and Output 04/08/24 04/09/24 04/09/24 22:59 06:59 14:59 Other: Weight 190.509 kg Results CBC & Chem 7: 04/08/24 23:48 04/08/24 23:48 Labs: Abnormal Lab Results - Last 24 Hours (Table) 04/08/24 04/08/24 04/08/24 Range/Units 23:48 23:48 23:48 Hgb 12.8 L (13.0-17.5) gm/dL PT 9.9 L (10.0-12.5) sec BUN 26 H (9-20) mg/dL Creatinine 0.55 L (0.66-1.25) mg/dL Glucose 142 H (74-99) mg/dL Total Protein 5.8 L (6.3-8.2) g/dL
--- NOTE | 2024-04-09 11:44 | P.DS ---
Providers Date of admission: 04/09/24 06:20 Attending physician: Jose Weeks Consults: 04/09/24 06:20 Consult Physician Urgent Consulting Provider: [facility] Consult Reason/Comments: Chest pain Do you want consulting provider notified?: Yes Primary care physician: Alfredo [facility] Course: Patient is a 58-year-old male morbidly obese obesity hypoventilation syndrome, sleep apnea although never tested for sleep apnea came in with complaints of chest pressure-like sensation radiating from the back to the front without any other radiation denies any lightheadedness diaphoresis constant moderate pressure-like sensation CT chest x-ray did not show any significant abnormality. D-dimer will be ordered patient has some pleuritic component of chest pain chest pain is not associated with food. Patient had multiple hospitalizations and had a cardiac catheterization recently which did not show any coronary occlusive disease EKG did not show any significant abnormality troponins are negative. Patient used to smoke does carry the diagnosis of COPD but not in COPD exacerbation at this time. Patient states he is short of breath as well but patient has obesity hypoventilation syndrome does not use any oxygen at home in the past did not qualify for home oxygen will be evaluated for home oxygen today. Patient was eval by cardiology awaiting their recommendations. PHYSICAL EXAMINATION: GENERAL: The patient is alert and oriented x3, not in any acute distress. Well developed, well nourished. Morbidly obese HEENT: Pupils are round and equally reacting to light. EOMI. No scleral icterus. No conjunctival pallor. Normocephalic, atraumatic. No pharyngeal erythema. No thyromegaly. CARDIOVASCULAR: S1 and S2 present. No murmurs, rubs, or gallops. PULMONARY: Chest is clear to auscultation, no wheezing or crackles. ABDOMEN: Soft, nontender, nondistended, normoactive bowel sounds. No palpable organomegaly. MUSCULOSKELETAL: No joint swelling or deformity. EXTREMITIES: No cyanosis, clubbing, or pedal edema. NEUROLOGICAL: Gross neurological examination did not reveal any focal deficits. SKIN: No rashes. Assessment and plan -Chest pain rule out acute coronary syndromes patient has recent cardiac catheterization with clean coronaries patient chest pain is probably musculoskeletal in nature if cleared by cardiology patient will be discharged today . Will rule out pulmonary embolism with a D-dimer as well. -Shortness of breath secondary to obesity hypoventilation syndrome patient will be evaluated for home O2 evaluation if he requires oxygen with arrange for oxygen and then will be discharged -History of hypoventilation syndrome/pickwickian syndrome weight loss counseling was provided -Obstructive sleep apnea -Paroxysmal atrial fibrillation: Currently in sinus rhythm on Lopressor and Eliquis which will be resumed and he can continue the same at home -Hypertensive heart disease, diastolic dysfunction is on diuretics which will be resumed patient is not in heart failure exacerbation at this time -Essential hypertension: Patient is actually hypotensive at this time -Severe osteoarthritis secondary to morbid obesity -Morbid obesity -Skin. In the gluteal fold for which patient was given Optifoam zinc barrier and Keflex which will be resumed and he will continue the same at home -Chronic venous insufficiency Patient will be discharged if cleared by cardiology today, if D-dimer is negative. Plan - Discharge Summary New Discharge Prescriptions: No Action Spironolactone [Aldactone] 25 mg PO DAILY Umeclidinium [place] [Incruse Ellipta] 1 puff INHALATION RT-DAILY Budesonide/Formoterol Fumarate [Breyna 160-4.5 Mcg Inhaler] 1 puff INHALATION RT-DAILY Furosemide [Lasix] 80 mg PO DAILY Pantoprazole [Protonix] 40 mg PO AC-BRKFST #30 tab SILVER sulfADIAZINE CREAM [Silvadene Cream] 1 applic TOPICAL BID each Metoprolol Succinate (ER) [Toprol XL] 50 mg PO DAILY #30 tab Meloxicam 7.5 mg PO DAILY Apixaban [Eliquis] 5 mg PO BID Albuterol Inhaler [Ventolin Hfa Inhaler] 1 - 2 puff INHALATION RT-Q6H PRN PRN Reason: Shortness Of Breath Or Wheezing Fluticasone Propion/Salmeterol [Advair Hfa 230-21 Mcg Inhaler] 2 puff INHALATION RT-BID Nitroglycerin Sl Tabs [Nitrostat] 0.4 mg SUBLINGUAL Q5M PRN #20 tab PRN Reason: Chest Pain Dapagliflozin Propanediol [Farxiga] 10 mg PO DAILY #30 tab Cephalexin [Keflex] 500 mg PO QID #12 cap Clotrimazole Cream [Lotrimin Cream] 1 applic TOPICAL BID #1 each Discharge Medication List Spironolactone [Aldactone] 25 mg PO DAILY 12/25/20 [History] Meloxicam 7.5 mg PO DAILY 08/05/21 [History] Umeclidinium [place] [Incruse Ellipta] 1 puff INHALATION RT-DAILY 12/18/23 [History] Albuterol Inhaler [Ventolin Hfa Inhaler] 1 - 2 puff INHALATION RT-Q6H PRN 02/06/24 [History] Apixaban [Eliquis] 5 mg PO BID 02/06/24 [History] Budesonide/Formoterol Fumarate [Breyna 160-4.5 Mcg Inhaler] 1 puff INHALATION RT-DAILY 02/06/24 [History] Fluticasone Propion/Salmeterol [Advair Hfa 230-21 Mcg Inhaler] 2 puff INHALATION RT-BID 02/06/24 [History] Furosemide [Lasix] 80 mg PO DAILY 02/24/24 [History] Nitroglycerin Sl Tabs [Nitrostat] 0.4 mg SUBLINGUAL Q5M PRN #20 tab 02/25/24 [Rx] Cephalexin [Keflex] 500 mg PO QID #12 cap 04/01/24 [Rx] Clotrimazole Cream [Lotrimin Cream] 1 applic TOPICAL BID #1 each 04/01/24 [Rx] Dapagliflozin Propanediol [Farxiga] 10 mg PO DAILY #30 tab 04/01/24 [Rx] Metoprolol Succinate (ER) [Toprol XL] 50 mg PO DAILY #30 tab 04/01/24 [Rx] Pantoprazole [Protonix] 40 mg PO AC-BRKFST #30 tab 04/01/24 [Rx] SILVER sulfADIAZINE CREAM [Silvadene Cream] 1 applic TOPICAL BID each 04/01/24 [Rx] Follow up Appointment(s)/Referral(s): Alfredo Hope DO [Primary Care Provider] - 1 Week None,Stated [REFERRING] - 1-2 days Discharge Disposition: HOME SELF-CARE
--- NOTE | 2024-04-09 12:26 | P.CRDCN ---
History of Present Illness Consult date: 04/09/24 Consult reason: chest pain History of present illness: This is Trev Payne NP, I'm dictating on behalf of Dr. Starr's H&P and A&P The patient was interviewed and examined. HPI: Patient is a pleasant 58-year-old male with a past medical history that includes atrial fibrillation, asthma, COPD, GERD, osteoarthritis, sleep apnea, chronic lower extremity lymphedema who presents to the hospital with complaints of chest pain. Patient reports that he fell out of his lift chair yesterday, but states his chest pain started before this. Patient reports that he had sudden onset of diffuse chest pain that did not let up. With his medical history, the patient became concerned and came to the emergency department for evaluation. In the ER the patient had a workup which included an EKG which demonstrated sinus mechanism with no ST or T wave abnormalities. Troponins have been negative x 3. Patient reports that his pain improved soon after arrival to the emergency department. Patient reports that the pain is still there. He reports his pain is generally felt all the time. ROS: [No fever, chills, or rigors] [no cough, phlegm, or expectoration] [no nausea, vomiting, or diarrhea] [no hematuria, dysuria] [no musculoskelatal complaints] [no strokes or seizures] [no skin lesions] EXAMINATION: GENERAL: Well-appearing, well-nourished and in no acute distress. NECK: Supple without JVD or thyromegaly. LUNGS: Breath sounds clear to auscultation bilaterally. Respiration equal and unlabored. No wheezes, rales or rhonchi. HEART: Regular rate and rhythm without murmurs, rubs or gallops. S1 and S2 heard. EXTREMITIES: Normal range of motion, no edema. No clubbing or cyanosis. Peripheral pulses intact and strong. REVIEW OF LABS, ECG & MEDICAL DATA: LABS: White count 9.4, hemoglobin 12.9, platelets 257, sodium 138, potassium 4.2 , BUN 26, creatinine 0.55, magnesium 1.9, troponin less than 0.012 x 3, proBNP 244. EKG: Sinus Mechanism IMAGING: Chest x-ray dated 04/09/2024 demonstrates no acute findings in the chest. VITALS: Temp 97.6, pulse 75, respirations 17, blood pressure 113/61, O2 saturation 95% on 2 L IMPRESSION: 1. Chest pain 2. History atrial fibrillation 3. History of sleep apnea 4. Morbid obesity 5. Fall PLAN: Scheduled for dobutamine stress echo with [facility] tomorrow. Check hemoglobin A1c. Check lipid panel. Further recommendations based on patient's clinical course. Thank you for the consult and allowing us to participate in the care of this patient. Past Medical History Past Medical History: Atrial Fibrillation, Asthma, COPD, GERD/Reflux, Oste oarthritis (OA), Pneumonia, Sleep Apnea/CPAP/BIPAP Additional Past Medical History / Comment(s): JEANIE/unable to tolerate cpap, pneumonias, bronchitis, chronic lower extremity lymphedema/redness/scabs, arthritis in multiple joints/chronic pain/chronic back pain History of Any Multi-Drug Resistant Organisms: None Reported Past Surgical History: Adenoidectomy, Appendectomy, Orthopedic Surgery, Tonsillectomy Additional Past Surgical History / Comment(s): Bilateral knee arthroscopy, UVPPP, carpal tunnel surgery, right shoulder surgery, colonoscopy/benign polypectomy. Past Anesthesia/Blood Transfusion Reactions: No Reported Reaction Past Psychological History: No Psychological Hx Reported Smoking Status: Former smoker Past Alcohol Use History: None Reported Past Drug Use History: None Reported - Past Family History Father History Unknown: Yes Family Medical History: Cancer Additional Family Medical History / Comment(s): . Mother History Unknown: Yes Family Medical History: Deep Vein Thrombosis (DVT) Medications and Allergies Home Medications Medication Instructions Recorded Confirmed Type Spironolactone [Aldactone] 25 mg PO DAILY 12/25/20 04/09/24 History Meloxicam 7.5 mg PO DAILY 08/05/21 04/09/24 History Umeclidinium [place] [Incruse 1 puff INHALATION RT-DAILY 12/18/23 04/09/24 History Ellipta] Albuterol Inhaler [Ventolin Hfa 1 - 2 puff INHALATION RT-Q6H PRN 02/06/24 04/09/24 History Inhaler] Apixaban [Eliquis] 5 mg PO BID 02/06/24 04/09/24 History Budesonide/Formoterol Fumarate 1 puff INHALATION RT-DAILY 02/06/24 04/09/24 History [Breyna 160-4.5 Mcg Inhaler] Fluticasone Propion/Salmeterol 2 puff INHALATION RT-BID 02/06/24 04/09/24 History [Advair Hfa 230-21 Mcg Inhaler] Furosemide [Lasix] 80 mg PO DAILY 02/24/24 04/09/24 History Nitroglycerin Sl Tabs [Nitrostat] 0.4 mg SUBLINGUAL Q5M PRN #20 tab 02/25/24 04/09/24 Rx Cephalexin [Keflex] 500 mg PO QID #12 cap 04/01/24 04/09/24 Rx Clotrimazole Cream [Lotrimin Cream] 1 applic TOPICAL BID #1 each 04/01/24 04/09/24 Rx Dapagliflozin Propanediol [Farxiga] 10 mg PO DAILY #30 tab 04/01/24 04/09/24 Rx Metoprolol Succinate (ER) [Toprol 50 mg PO DAILY #30 tab 04/01/24 04/09/24 Rx XL] Pantoprazole [Protonix] 40 mg PO AC-BRKFST #30 tab 04/01/24 04/09/24 Rx SILVER sulfADIAZINE CREAM 1 applic TOPICAL BID each 04/01/24 04/09/24 Rx [Silvadene Cream] Allergies Allergy/AdvReac Type Severity Reaction Status Date / Time isosorbide [From Imdur] AdvReac headache & Verified 04/09/24 09:39 blurred vision metoprolol [From Toprol XL] AdvReac headache & Verified 04/09/24 09:39 blurred vision Physical Exam Vitals: Vital Signs Temp Pulse Resp BP Pulse Ox 04/09/24 05:37 97.6 F 75 17 113/61 95 04/09/24 02:23 70 18 111/63 96 04/08/24 23:42 97.5 F L 67 18 111/61 95 Intake and Output 04/08/24 04/09/24 04/09/24 22:59 06:59 14:59 Other: Weight 190.509 kg Results 04/08/24 23:48 04/08/24 23:48 Cardiac Enzymes 04/08/24 04/08/24 04/09/24 Range/Units 23:48 23:48 02:14 AST 20 (17-59) U/L Troponin I <0.012 <0.012 (0.000-0.034) ng/mL 04/09/24 Range/Units 08:20 AST (17-59) U/L Troponin I <0.012 (0.000-0.034) ng/mL Coagulation 04/08/24 Range/Units 23:48 PT 9.9 L (10.0-12.5) sec APTT 26.1 (22.0-30.0) sec CBC 04/08/24 Range/Units 23:48 WBC 9.4 (3.8-10.6) k/uL RBC 4.80 (4.30-5.90) m/uL Hgb 12.8 L (13.0-17.5) gm/dL Hct 41.0 (39.0-53.0) % Plt Count 257 (150-450) k/uL Comprehensive Metabolic Panel 04/08/24 Range/Units 23:48 Sodium 138 (137-145) mmol/L Potassium 4.2 (3.5-5.1) mmol/L Chloride 102 (98-107) mmol/L Carbon Dioxide 28 (22-30) mmol/L BUN 26 H (9-20) mg/dL Creatinine 0.55 L (0.66-1.25) mg/dL Glucose 142 H (74-99) mg/dL Calcium 9.0 (8.4-10.2) mg/dL AST 20 (17-59) U/L ALT 14 (4-49) U/L Alkaline Phosphatase 83 (38-126) U/L Total Protein 5.8 L (6.3-8.2) g/dL Albumin 3.5 (3.5-5.0) g/dL Current Medications Generic Name Dose Route Start Last Admin Trade Name Freq PRN Reason Stop Dose Admin Acetaminophen 650 mg 04/09/24 06:20 Acetaminophen Tab 325 Mg Tab PO Q6HR PRN Mild Pain or Fever > 100.5 Aspirin 325 mg 04/10/24 09:00 Aspirin 325 Mg Tab PO DAILY TAMELA Naloxone HCl 0.2 mg 04/09/24 06:20 Naloxone 0.4 Mg/Ml 1 Ml Vial IV Q2M PRN Opioid Reversal Ondansetron HCl 4 mg 04/09/24 06:20 Ondansetron 4 Mg/2 Ml Vial IVP Q8HR PRN Nausea And Vomiting Intake and Output 04/08/24 04/09/24 04/09/24 22:59 06:59 14:59 Other: Weight 190.509 kg 04/08/24 23:48 04/08/24 23:48
[2024-04-09] MEDS: APIXABAN 5 MG TAB PO SCH (12:40)
[2024-04-09] MEDS: CEPHALEXIN 500 MG CAP PO SCH (15:08)
[2024-04-09] MEDS ORDERED: NON FORMULARY DRUG (Fluticasone Propion/Salmeterol [Advair Hfa 230-21 Mcg Inhaler] 8 GM Gm INHALATION SCH (20:00)
[2024-04-10] MEDS ORDERED: DOBUTamine DRIP for NUC MED 500 MG in DEXTROSE/WATER 1 250ML.BAG IV PRN (06:00)
[2024-04-10] MEDS ORDERED: DOBUTamine DRIP for NUC MED 500 MG/250 ML BAG IV ONE (06:00)
[2024-04-10] MEDS: PANTOPRAZOLE 40 MG TABLET PO SCH (06:28)
[2024-04-10] MEDS: SYMBICORT 160-4.5 MCG INHALER INHALATION SCH (08:14)
[2024-04-10] MEDS: IPRATROPIUM 0.5 MG/2.5 ML NEBU INHALATION SCH (08:14)
[2024-04-10 09:02] LABS: Chol/HDL Ratio 3.55 Ratio; LDL Cholesterol,Calculated 89.2 mg/dL (0.0-131.0)
[2024-04-10] MEDS: FUROSEMIDE 40 MG TAB PO SCH (09:36)
[2024-04-10] MEDS: SPIRONOLACTONE 25 MG TAB PO SCH (09:36)
[2024-04-10] MEDS: DAPAGLIFLOZIN PROPANEDIOL 10 MG TABLET PO SCH (09:36)
[2024-04-10] MEDS: ASPIRIN 325 MG TAB PO SCH (09:36)
[2024-04-10] MEDS: MELOXICAM 7.5 MG TAB PO SCH (09:36)
--- NOTE | 2024-04-10 12:29 | P.PN ---
Subjective HISTORY OF PRESENT ILLNESS: 04/10/2024 Patient is a pleasant 58-year-old male with a past medical history that includes atrial fibrillation, asthma, COPD, GERD, osteoarthritis, sleep apnea, chronic lower extremity lymphedema who presents to the hospital with complaints of chest pain. Patient reports that he fell out of his lift chair yesterday, but states his chest pain started before this. Patient reports that he had sudden onset of diffuse chest pain that did not let up. With his medical history, the patient became concerned and came to the emergency department for evaluation. In the ER the patient had a workup which included an EKG which demonstrated sinus mechanism with no ST or T wave abnormalities. Troponins have been negative x 3. Patient reports that his pain improved soon after arrival to the emergency department. Patient reports that the pain is still there. He reports his pain is generally felt all the time. 04/11/2024 Patient examined this morning in the stress lab. Patient currently denies chest pain or pressure. He denies shortness of breath. Vital signs are stable. He is scheduled to undergo dobutamine stress test today. PHYSICAL EXAM: VITAL SIGNS: Reviewed. GENERAL: Well-developed in no acute distress. NECK: Supple. No JVD or thyromegaly LUNGS: Respirations even and unlabored. Lungs essentially clear to auscultation bilaterally. HEART: Regular rate and rhythm. S1 and S2 heard. EXTREMITIES: Normal range of motion. No clubbing or cyanosis. Peripheral pulses intact. No lower extremity edema ASSESSMENT: Chest pain Paroxysmal atrial fibrillation Normal coronary arteries, per cardiac catheterization 06/2023 History of obstructive sleep apnea Status post mechanical fall Morbid obesity: BMI 58.6 PLAN: Continue current cardiac medications Patient to undergo dobutamine stress test today If stress test is negative, patient will be discharged home from a cardiac standpoint Nurse practitioner note has been reviewed by physician. Signing provider agrees with the documented findings, assessment, and plan of care documented by [employer] as a scribe. Objective - Vital Signs Vital signs: Vital Signs Temp 97.9 F 04/10/24 06:50 Pulse 84 04/10/24 08:28 Resp 19 04/10/24 06:50 BP 168/75 04/10/24 06:50 Pulse Ox 95 04/10/24 08:17 FiO2 21 04/10/24 08:17 Intake & Output 04/09/24 04/10/24 04/10/24 18:59 06:59 18:59 Output Total 350 Balance -350 Weight 190.509 kg Output: Urine 350 Other: Voiding Method Urinal - Labs CBC & Chem 7: 04/08/24 23:48 04/08/24 23:48
[2024-04-10 14:40] VITALS: BP 161/76; RESP 21; TEMP 97.7
[2024-04-10] MEDS: METOPROLOL SUCCINATE (ER) 50 MG TAB.ER.24H PO SCH (15:01)
[2024-04-10 16:16] VITALS: PULSE 88
--- NOTE | 2024-04-10 17:49 | CA ---
Dobutamine Stress Echocardiogram Report Alfredo Rosas Age: 58 Gender: M : 1965 Exam Date: 04/10/2024 12:21 Exam Location: [facility] Ordering Physician: Tonya Gasca [facility] Referring Physician: TONYA GASCA,, Cardiac Nurse Specialist: Maite Anthony RDCS Technologist: Ht (in): 69 Wt (lb): 400 Procedure CPT: Indication: Chest Pain ICD-9 Codes: Rhythm: Patient History: Chest pain and shortness of breath Cardiac Medications: Medications in past 24 hours: Contrast: Definity Total Dose (mL): 6 Stress Results Protocol: Dobutamine Peak Dose (???g/kg/min): 40 Duration (min:sec): Atropine:(mg) Target HR: 139 Double Product: 50991 Resting HR: 85 Resting BP: 115 / 57 Peak HR: 151 Peak BP: 211 / 47 Max Predicted HR: 164 92 % Max Predicted HR Stress Summary: BP Response: Reason for Termination: Exceeded target heart rate (85% max predicted) Cardiac Symptoms: Short of Breath ECG Analysis Resting EKG: Normal sinus rhythm normal axis normal intervals Stress EKG: Patient was given intravenous dobutamine as per protocol achieving 92% of predicted maximal heart rate without chest pain or diagnostic ST segment depression Arrhythmia: Echo Analysis Base Echo Analysis: Technically suboptimal study secondary to poor echo windows Low Echo Anaylsis: Normal Peak Echo Analysis: Normal hyperdynamic response Recovery Echo: Normal MEASUREMENTS (Male/Female) Normal Values CONCLUSIONS Technically suboptimal study secondary to poor echo windows Negative stress test by EKG criteria No obvious evidence of dobutamine induced wall motion abnormality Dr. Juma Velez MD (Electronically Signed) Final Date: 10 April 2024 17:48
--- NOTE | 2024-04-12 23:48 | P.DS ---
Providers Date of admission: 04/09/24 06:20 Attending physician: Jose Weeks Consults: 04/09/24 06:20 Consult Physician Urgent Consulting Provider: [facility] Consult Reason/Comments: Chest pain Do you want consulting provider notified?: Yes Primary care physician: Alfredo Hope [facility] Course: Final Diagnosis -Chest pain rule out acute coronary syndromes patient has recent cardiac catheterization with clean coronaries patient chest pain is probably musculoskeletal in nature -Shortness of breath secondary to obesity hypoventilation syndrome patient was evaluated for home O2, does not qualify. -History of hypoventilation syndrome/pickwickian syndrome weight loss counseling was provided -Obstructive sleep apnea -Paroxysmal atrial fibrillation: Currently in sinus rhythm on Lopressor and Eliquis which will be resumed and he can continue the same at home -Hypertensive heart disease, diastolic dysfunction is on diuretics which will be resumed patient is not in heart failure exacerbation at this time -Essential hypertension: Patient is actually hypotensive at this time -Severe osteoarthritis secondary to morbid obesity -Morbid obesity -Skin. In the gluteal fold for which patient was given Optifoam zinc barrier and Keflex which will be resumed and he will continue the same at home -Chronic venous insufficiency Discharge Disposition Patient is stable for discharge home. Has been cleared by cardiology. He is recommended to see his data management associate in the office in 1 week. He follows with Dr. Alexis. Patient to see his PCP Dr. Alfredo Hope in 1 to 2 days. Hospital Course Patient is a 58-year-old male morbidly obese obesity hypoventilation syndrome, sleep apnea although never tested for sleep apnea came in with complaints of chest pressure-like sensation radiating from the back to the front without any other radiation denies any lightheadedness diaphoresis constant moderate pressure-like sensation. CT chest x-ray did not show any significant abnormality. Patient has some pleuritic component of chest pain chest pain is not associated with food. Patient had multiple hospitalizations and had a cardiac catheterization recently which did not show any coronary occlusive disease EKG did not show any significant abnormality troponins are negative. Patient used to smoke does carry the diagnosis of COPD but not in COPD exacerbation at this time. Patient states he is short of breath as well but patient has obesity hypoventilation syndrome does not use any oxygen at home in the past did not qualify for home oxygen. Patient was admitted to the hospital with cardiology consultation. He had a normal D-Dimer. He had a dobutamine stress echo which was a technically difficult study secondary to poor echo windows. Negative stress test by EKG criteria. No obvious evidence of duobutamine inducted wall motion abnormality. Patient no longer is reporting chest pain. His lungs are clear. He will be discharged home. Please see medication reconciliation for a list of current medications. Thank you for allowing us to participate in the care of this patient. The impression and plan of care has been dictated by Libra Gong, Nurse Practitioner as directed. Dr. Desi MD I have performed a history and physical examination and medical decision making of this patient, discussed the same with the dictator, and agree with the dictators assessment and plan as written, documented as a scribe. Based on total visit time, I have performed more than 50% of this visit. Patient Condition at Discharge: Good Plan - Discharge Summary New Discharge Prescriptions: New Nystatin 100,000 Unit/gm Powd [Mycostatin Powder] 1 applic TOPICAL BID #15 gm Continue Spironolactone [Aldactone] 25 mg PO DAILY Umeclidinium [place] [Incruse Ellipta] 1 puff INHALATION RT-DAILY Budesonide/Formoterol Fumarate [Breyna 160-4.5 Mcg Inhaler] 1 puff INHALATION RT-DAILY Furosemide [Lasix] 80 mg PO DAILY Pantoprazole [Protonix] 40 mg PO AC-BRKFST #30 tab SILVER sulfADIAZINE CREAM [Silvadene Cream] 1 applic TOPICAL BID each Metoprolol Succinate (ER) [Toprol XL] 50 mg PO DAILY #30 tab Meloxicam 7.5 mg PO DAILY Apixaban [Eliquis] 5 mg PO BID Albuterol Inhaler [Ventolin Hfa Inhaler] 1 - 2 puff INHALATION RT-Q6H PRN PRN Reason: Shortness Of Breath Or Wheezing Fluticasone Propion/Salmeterol [Advair Hfa 230-21 Mcg Inhaler] 2 puff INHALATION RT-BID Nitroglycerin Sl Tabs [Nitrostat] 0.4 mg SUBLINGUAL Q5M PRN #20 tab PRN Reason: Chest Pain Dapagliflozin Propanediol [Farxiga] 10 mg PO DAILY #30 tab Clotrimazole Cream [Lotrimin Cream] 1 applic TOPICAL BID #1 each Discontinued Cephalexin [Keflex] 500 mg PO QID #12 cap Discharge Medication List Spironolactone [Aldactone] 25 mg PO DAILY 12/25/20 [History] Meloxicam 7.5 mg PO DAILY 08/05/21 [History] Umeclidinium [place] [Incruse Ellipta] 1 puff INHALATION RT-DAILY 12/18/23 [History] Albuterol Inhaler [Ventolin Hfa Inhaler] 1 - 2 puff INHALATION RT-Q6H PRN 02/06/24 [History] Apixaban [Eliquis] 5 mg PO BID 02/06/24 [History] Budesonide/Formoterol Fumarate [Breyna 160-4.5 Mcg Inhaler] 1 puff INHALATION RT-DAILY 02/06/24 [History] Fluticasone Propion/Salmeterol [Advair Hfa 230-21 Mcg Inhaler] 2 puff INHALATION RT-BID 02/06/24 [History] Furosemide [Lasix] 80 mg PO DAILY 02/24/24 [History] Nitroglycerin Sl Tabs [Nitrostat] 0.4 mg SUBLINGUAL Q5M PRN #20 tab 02/25/24 [Rx] Clotrimazole Cream [Lotrimin Cream] 1 applic TOPICAL BID #1 each 04/01/24 [Rx] Dapagliflozin Propanediol [Farxiga] 10 mg PO DAILY #30 tab 04/01/24 [Rx] Metoprolol Succinate (ER) [Toprol XL] 50 mg PO DAILY #30 tab 04/01/24 [Rx] Pantoprazole [Protonix] 40 mg PO AC-BRKFST #30 tab 04/01/24 [Rx] SILVER sulfADIAZINE CREAM [Silvadene Cream] 1 applic TOPICAL BID each 04/01/24 [Rx] Nystatin 100,000 Unit/gm Powd [Mycostatin Powder] 1 applic TOPICAL BID #15 gm 04/10/24 [Rx] Follow up Appointment(s)/Referral(s): Alfredo Hope DO [Primary Care Provider] - 1-2 Days Rajinder Alexis DO [STAFF PHYSICIAN] - 1 Week Activity/Diet/Wound Care/Special Instructions: Follow up with your data management associate Discharge Disposition: HOME SELF-CARE
== END 2024-04-10 20:25 | disposition home or self-care (01) ==
LOC: EC 23:26 → 6NMEDSUR 04-09 06:20
PROVIDERS: ADMIT Internal Medicine; ATTEND Internal Medicine
DX: R07.89 Other chest pain (principal); E66.01 Morbid (severe) obesity due to excess calories; R06.02 Shortness of breath; G47.33 Obstructive sleep apnea (adult) (pediatric); I48.0 Paroxysmal atrial fibrillation; I11.9 Hypertensive heart disease without heart failure; Z79.01 Long term (current) use of anticoagulants; I87.2 Venous insufficiency (chronic) (peripheral); Z87.891 Personal history of nicotine dependence; Z86.718 Personal history of other venous thrombosis and embolism; Z79.899 Other long term (current) drug therapy; Z79.84 Long term (current) use of oral hypoglycemic drugs; Z79.1 Long term (current) use of non-steroidal anti-inflammatories (NSAID); Z68.43 Body mass index [BMI] 50.0-59.9, adult
CPT/HCPCS: 99285; 36415 ×2; 94640 ×2; 94760 ×2; 93005; 93351; 85379; 83880; 80061; 80053; 83735; 84484 ×2; 85025; 85610; 85730; 71046; G0378 ×2; J1250; Q9957

== ENCOUNTER 2024-04-20 09:24 | Inpatient (IN) | payer MEDICARE ==
--- NOTE | 2024-04-20 10:33 | XR ---
EXAMINATION TYPE: XR chest 2V DATE OF EXAM: 04/20/2024 COMPARISON: 04/09/2024 TECHNIQUE: PA and lateral views submitted. HISTORY: Shortness of breath FINDINGS: There is limited inspiration with cardiomegaly and basilar subsegmental consolidation. No overt failu re pneumothorax. Arthropathy of the shoulders. Chronic deformity of the rib cage. Hypertrophic change s of the spine to be associated with diffuse idiopathic skeletal hyperostosis. IMPRESSION: 1. No acute process.
[2024-04-20 11:16] LABS: INR 0.9 (<1.2); Partial Thromboplastin Time 28.3 sec (22.0-30.0); Prothrombin Time 10.3 sec (10.0-12.5)
[2024-04-20 11:25] LABS: ALT 14 U/L (4-49); AST 21 U/L (17-59); African American GFR (CKD) >90 (>60 ml/min/1.73 sqM); Albumin 3.3 g/dL (3.5-5.0); Alkaline Phosphatase 99 U/L (38-126); Anion Gap 6 mmol/L; Blood Urea Nitrogen 15 mg/dL (9-20); Calcium 8.7 mg/dL (8.4-10.2); Carbon Dioxide 30 mmol/L (22-30); Chloride 99 mmol/L (98-107); Glucose 133 mg/dL (74-99); Magnesium 1.8 mg/dL (1.6-2.3); Non-African American GFR(CKD) >90 (>60 ml/min/1.73 sqM); Potassium 3.6 mmol/L (3.5-5.1); Sodium 135 mmol/L (137-145); Total Bilirubin 0.6 mg/dL (0.2-1.3); Total Protein 5.6 g/dL (6.3-8.2)
[2024-04-20 11:31] LABS: Basophils % (A) 0 %; Eosinophils # (A) 0.2 k/uL (0-0.7); Eosinophils % (A) 2 %; HCT 39.8 % (39.0-53.0); HGB 12.5 gm/dL (13.0-17.5); Hypochromasia Slight; Lymphocytes # (A) 0.9 k/uL (1.0-4.8); Lymphocytes % (A) 9 %; MCH 26.2 pg (25.0-35.0); MCHC 31.4 g/dL (31.0-37.0); MCV 83.5 fL (80.0-100.0); Mean Platelet Volume 7.7; Monocytes # (A) 0.7 k/uL (0-1.0); Monocytes % (A) 7 %; Neutrophils # (A) 7.7 k/uL (1.3-7.7); Neutrophils % (A) 81 %; Platelet Count 282 k/uL (150-450); RBC 4.77 m/uL (4.30-5.90); RDW 14.4 % (11.5-15.5); WBC 9.5 k/uL (3.8-10.6)
[2024-04-20 11:33] LABS: NT-Pro-B-Type Natriuretic Pept 205 pg/mL
--- NOTE | 2024-04-20 12:21 | ED ---
General Adult HPI - General Chief complaint: Shortness of Breath Stated complaint: SURYA Time Seen by Provider: 04/20/24 10:00 Source: patient, EMS, RN notes reviewed, old records reviewed Mode of arrival: EMS Limitations: no limitations - History of Present Illness Initial comments: Patient is a 58-year-old male presents emergency department complaining of volume overload, increased debility. Has a history apparently of CHF, A-fib, COPD. States he has noticed increased swelling of his lower extremities somewhat so that he cannot stand or move. Presents for further evaluation at this time. Denies any current chest pain or shortness of breath. Has some mild exertional dyspnea. Denies cough or fever. Presents for further evaluation. - Related Data Home Medications Medication Instructions Recorded Confirmed Spironolactone [Aldactone] 25 mg PO DAILY 12/25/20 04/20/24 Meloxicam 7.5 mg PO DAILY 08/05/21 04/20/24 Umeclidinium [place] [Incruse 1 puff INHALATION RT-DAILY 12/18/23 04/20/24 Ellipta] Albuterol Inhaler [Ventolin Hfa 1 - 2 puff INHALATION RT-Q6H PRN 02/06/2404/08 Inhaler] Apixaban [Eliquis] 5 mg PO BID 02/06/24 04/20/24 Budesonide/Formoterol Fumarate 1 puff INHALATION RT-DAILY 02/06/24 04/20/24 [Breyna 160-4.5 Mcg Inhaler] Fluticasone Propion/Salmeterol 2 puff INHALATION RT-BID 02/06/24 04/20/24 [Advair Hfa 230-21 Mcg Inhaler] Furosemide [Lasix] 80 mg PO DAILY 02/24/24 04/20/24 Nystatin 100,000 Unit/gm Powd 1 applic TOPICAL DIRECTED 04/20/24 04/20/24 [Mycostatin Powder] Previous Rx's Medication Instructions Recorded Nitroglycerin Sl Tabs [Nitrostat] 0.4 mg SUBLINGUAL Q5M PRN #20 tab 02/25/24 Clotrimazole Cream [Lotrimin Cream] 1 applic TOPICAL BID #1 each 04/01/24 Dapagliflozin Propanediol [Farxiga] 10 mg PO DAILY #30 tab 05/25/24 Metoprolol Succinate (ER) [Toprol 50 mg PO DAILY #30 tab 04/01/24 XL] Pantoprazole [Protonix] 40 mg PO AC-BRKFST #30 tab 04/01/24 SILVER sulfADIAZINE CREAM 1 applic TOPICAL BID each 04/01/24 [Silvadene Cream] Allergies Allergy/AdvReac Type Severity Reaction Status Date / Time isosorbide [From Imdur] AdvReac headache & Verified 04/20/24 11:08 blurred vision metoprolol [From Toprol XL] AdvReac headache & Verified 04/20/24 11:08 blurred vision Review of Systems ROS Statement: Those systems with pertinent positive or pertinent negative responses have been documented in the HPI. Review of Systems: CONST: Denies fever EYES: Denies blurry vision ENT: Denies nasal congestion C/V: Denies Chest pain RESP: Denies shortness of breath GI: Denies abdominal pain : Denies dysuria SKIN: Denies rash. MSK: Has lower extremity edema NEURO: Denies headache ROS Other: All systems not noted in ROS Statement are negative. Past Medical History Past Medical History: Atrial Fibrillation, Asthma, COPD, GERD/Reflux, Osteoarthritis (OA), Pneumonia, Sleep Apnea/CPAP/BIPAP Additional Past Medical History / Comment(s): JEANIE/unable to tolerate cpap, pneumonias, bronchitis, chronic lower extremity lymphedema/redness/scabs, arth ritis in multiple joints/chronic pain/chronic back pain History of Any Multi-Drug Resistant Organisms: None Reported Past Surgical History: Adenoidectomy, Appendectomy, Orthopedic Surgery, Tonsillectomy Additional Past Surgical History / Comment(s): Bilateral knee arthroscopy, UVPPP, carpal tunnel surgery, right shoulder surgery, colonoscopy/benign polypectomy. Past Anesthesia/Blood Transfusion Reactions: No Reported Reaction Past Psychological History: No Psychological Hx Reported Smoking Status: Former smoker Past Alcohol Use History: None Reported Past Drug Use History: None Reported - Past Family History Father History Unknown: Yes Family Medical History: Cancer Additional Family Medical History / Comment(s): . Mother History Unknown: Yes Family Medical History: Deep Vein Thrombosis (DVT) General Exam - General Exam Comments Initial Comments: General: Appears in no acute distress. HEAD: Normal with no signs of head trauma. EYES: PERRLA, EOMI, conjunctiva normal, no discharge. ENT: Hearing grossly intact, normal oropharynx. RESPIRATORY: Clear breath sounds bilaterally. No wheezes, rales, or rhonchi. C/V: Regular rate and rhythm. S1 and S2 auscultated. Peripheral pulses 2+ intact throughout. Significant chronic lower extremity pitting edema present. ABD: Abd is soft, nontender, nondistended EXT: Normal range of motion, no obvious deformity SKIN: Chronic skin findings on bilateral lower extremities. NEURO: Alert and oriented x 4. Limitations: no limitations Course Vital Signs 04/20/24 04/20/24 04/20/24 09:43 10:57 11:10 Temperature 98.1 F Pulse Rate 85 86 Respiratory 18 18 Rate Blood Pressure 106/62 111/60 O2 Sat by Pulse 95 93 L Oximetry 04/20/24 13:37 Temperature Pulse Rate 82 Respiratory 18 Rate Blood Pressure 117/68 O2 Sat by Pulse 97 Oximetry Medical Decision Making - Medical Decision Making Was pt. sent in by a medical professional or institution (, PA, ADJUSTMENT SUPERVISOR, urgent care, hospital, or halfway...) When possible be specific @ -No Did you speak to anyone other than the patient for history (EMS, parent, family, police, friend...)? What history was obtained from this source @ -No Did you review nursing and triage notes (agree or disagree)? Why? @ -I reviewed and agree with nursing and triage notes Were old charts reviewed (outside hosp., previous admission, EMS record, old EKG, old radiological studies, urgent care reports/EKG's, halfway records)? Report findings @ -Prior admission evaluated which showed patient has chronic pitting edema. Differential Diagnosis (chest pain, altered mental status, abdominal pain women, abdominal pain men, vaginal bleeding, weakness, fever, dyspnea, syncope, headache, dizziness, GI bleed, back pain, seizure, CVA, palpatations, mental health, musculoskeletal)? @ -CHF, debility, chronic edema, this list is not all inclusive. EKG interpreted by me (3pts min.). @ -As above X-rays interpreted by me (1pt min.). @ -Chest x-ray shows no obvious acute cardiopulmonary process. CT interpreted by me (1pt min.). @ -None done U/S interpreted by me (1pt. min.). @ -None done What testing was considered but not performed or refused? (CT, X-rays, U/S, labs)? Why? @ -None What meds were considered but not given or refused? Why? @ -None Did you discuss the management of the patient with other professionals (professionals i.e. , PA, ADJUSTMENT SUPERVISOR, lab, RT, psych nurse, social science research assistant, ash kier boiler, teacher, transportation security officer, outpatient case manager)? Give summary @ -I spoke with Dr. Quiroz who accepted the admission. Was smoking cessation discussed for >3mins.? @ -No Was critical care preformed (if so, how long)? @ -No Were there social determinants of health that impacted care today? How? (Homelessness, low income, unemployed, alcoholism, drug addiction, transp ortation, low edu. Level, literacy, decrease access to med. care, [facility], rehab)? @ -No Was there de-escalation of care discussed even if they declined (Discuss DNR or withdrawal of care, Hospice)? DNR status @ -No What co-morbidities impacted this encounter? (DM, HTN, Smoking, COPD, CAD, Cancer, CVA, ARF, Chemo, Hep., AIDS, mental health diagnosis, sleep apnea, morbid obesity)? @ -None Was patient admitted / discharged? Hospital course, mention meds given and route, prescriptions, significant lab abnormalities, going to OR and other pertinent info. @ -Patient presents with chronic volume overload state. States is getting worse and he is increased debility due to weakness. Presents for further evaluation. Patient's labs returned unremarkable. BNP within normal limits. Chest x-ray shows no evidence of pulmonary vascular congestion. EKG shows no signs of acute ischemia. At this time I would like to admit the patient as he is having hard time moving around at home. I will reorder occasions. I spoke with the admitting physician, Dr. Quiroz who accepted the admission. He requ ested patient be placed on a Lasix drip which was ordered and strict I's and O's ordered. Fluid restriction of 1500 cc ordered. Patient in agreement this plan. Undiagnosed new problem with uncertain prognosis? @ -No Drug Therapy requiring intensive monitoring for toxicity (Heparin, Nitro, Insul in, Cardizem)? @ -No Were any procedures done? @ -No Diagnosis/symptom? @ -Volume overload state, debility Acute, or Chronic, or Acute on Chronic? @ -Acute on chronic Uncomplicated (without systemic symptoms) or Complicated (systemic symptoms)? @ -Complicated Side effects of treatment? @ -No Exacerbation, Progression, or Severe Exacerbation? @ -No Poses a threat to life or bodily function? How? (Chest pain, [place], MD, pneumonia, PE, COPD, DKA, ARF, appy, cholecystitis, CVA, Diverticulitis, Homicidal, Suicidal, threat to staff... and all critical care pts) @ -Yes - Lab Data Result diagrams: 04/20/24 10:55 04/20/24 10:55 Lab Results 04/20/24 04/20/24 04/20/24 Range/Units 10:55 10:55 10:55 WBC 9.5 (3.8-10.6) k/uL RBC 4.77 (4.30-5.90) m/uL Hgb 12.5 L (13.0-17.5) gm/dL Hct 39.8 (39.0-53.0) % MCV 83.5 (80.0-100.0) fL MCH 26.2 (25.0-35.0) pg MCHC 31.4 (31.0-37.0) g/dL RDW 14.4 (11.5-15.5) % Plt Count 282 (150-450) k/uL MPV 7.7 Neutrophils % 81 % Lymphocytes % 9 % Monocytes % 7 % Eosinophils % 2 % Basophils % 0 % Neutrophils # 7.7 (1.3-7.7) k/uL Lymphocytes # 0.9 L (1.0-4.8) k/uL Monocytes # 0.7 (0-1.0) k/uL Eosinophils # 0.2 (0-0.7) k/uL Basophils # 0.0 (0-0.2) k/uL Hypochromasia Slight PT 10.3 (10.0-12.5) sec INR 0.9 (<1.2) APTT 28.3 (22.0-30.0) sec Sodium 135 L (137-145) mmol/L Potassium 3.6 (3.5-5.1) mmol/L Chloride 99 (98-107) mmol/L Carbon Dioxide 30 (22-30) mmol/L Anion Gap 6 mmol/L BUN 15 (9-20) mg/dL Creatinine 0.58 L (0.66-1.25) mg/dL Est GFR (CKD-EPI)AfAm >90 (>60 ml/min/1.73 sqM) Est GFR (CKD-EPI)NonAf >90 (>60 ml/min/1.73 sqM) Glucose 133 H (74-99) mg/dL Calcium 8.7 (8.4-10.2) mg/dL Magnesium 1.8 (1.6-2.3) mg/dL Total Bilirubin 0.6 (0.2-1.3) mg/dL AST 21 (17-59) U/L ALT 14 (4-49) U/L Alkaline Phosphatase 99 (38-126) U/L NT-Pro-B Natriuret Pep 205 pg/mL Total Protein 5.6 L (6.3-8.2) g/dL Albumin 3.3 L (3.5-5.0) g/dL - EKG Data -: EKG Interpreted by Me EKG Comments: 12-lead Electrocardiogram Interpretation Note EKG was reviewed and interpreted by myself. 12-lead ECG performed at 0943 is i nterpreted by me as revealing normal sinus rhythm at a rate of 82 beats per minute. [place] is normal. [place] interval is 183 ms, QRS durations 132 ms, QTc is 405 ms.. There were no ST or T wave abnormalities to suggest myocardial ischemia or injury. R wave progression across the precordium was satisfactory. By my interpretation this EKG is non-diagnostic for acute ischemia. Disposition Clinical Impression: Volume overload, Debility Disposition: ADMITTED IP TO THIS HOSP Condition: Stable Time of Disposition: 12:15
[2024-04-20] MEDS ORDERED: NALOXONE 0.4 MG/ML 1 ML VIAL IV PRN (12:29)
[2024-04-20] MEDS: FUROSEMIDE 10 MG/ML 4 ML VIAL IV STA (13:26)
[2024-04-20] MEDS: FUROSEMIDE 100 MG in SODIUM CHLORIDE 0.9% 90 ML IV SCH (13:30)
[2024-04-20] MEDS ORDERED: ALBUTEROL NEBULIZED 2.5 MG/3 ML INHALATION PRN (13:30)
[2024-04-20 13:47] LABS: Appearance,Urine Clear (Clear); Bilirubin,Urine Negative (Negative); Blood,Urine Negative (Negative); Color,Urine Colorless; Glucose,Urine (UA) Negative (Negative); Ketones,Urine Negative (Negative); Leukocyte Esterase,Urine Negative (Negative); Nitrite,Urine Negative (Negative); Protein,Urine Negative (Negative); Urobilinogen,Urine <2.0 mg/dL (<2.0)
[2024-04-20] MEDS ORDERED: NON FORMULARY DRUG (Fluticasone Propion/Salmeterol [Advair Hfa 230-21 Mcg Inhaler] 8 GM Gm INHALATION SCH (20:00)
--- NOTE | 2024-04-20 21:11 | P.HPIM ---
History of Present Illness H&P Date: 04/20/24 Chief Complaint: Volume overload This is a pleasant 58 years old male ,Has a history of COPD, obstructive sleep apnea had a UPPP. Osteoarthritis in multiple joints especially the knees. Patient is chronically short of breath. Baseline uses crutches Presents because of worsening dyspnea and chest pain of 2 days duration At home he supposed to use CPAP but is not adherent with it because of his panic attack Patient presents with increased shortness of breath. Increasing edema. Unable to get about. Props up and sleeps. Denies any fever and chills. Tired. Review of systems: GEN.: Tired, EYES: None HEENT: None NECK: None RESPIRATORY: As above CARDIOVASCULAR: As above GASTROINTESTINAL: None GENITOURINARY: None MUSCULOSKELETAL: Joint pains LYMPHATICS: None HEMATOLOGICAL: None PSYCHIATRY: Anxious NEUROLOGICAL: None Past medical history to include: COPD, osteoarthritis, obstructive sleep apnea with UPPP, dry skin Social history: Lives with brother. Smoked for about 14 years stopped in 2006. Currently not employed. Used to work at [employer]. Physical examination: VITAL SIGNS: 98, 83, 18, 122 x 57, 96% room air GENERAL: Reclining in bed short of breath EYES: Pupils equal. Conjunctiva normal. HEENT: External appearance of nose and ears normal, oral cavity grossly normal. NECK: JVD unable to assess masses not palpable. HEART: Heart sounds muffled; mild edema. LUNGS: Respiratory rate increased, distant breath sounds ABDOMEN: Soft, nontender, liver spleen not palpable, no masses palpable. PSYCH: Alert and oriented x3; mood and affect tired NEUROLOGICAL: Cranial nerves grossly intact; no facial asymmetry, power and sensation grossly intact. DERMATOLOGICAL: Redness lower extremity. Cyanosis. Cracking of the heel. INVESTIGATIONS, reviewed in the clinical context: April 20, 2024: White count 9.5 globin 12.5 platelets 22 sodium 135 potassium 3.6 creatinine 0.58 proBNP 205 EKG tracing personally reviewed by me-sinus rhythm. Intraventricular block Chest x-ray film personally reviewed by me-cardiomegaly. Some underpenetration Previous labs 2D echocardiogram: EF 55 to 60%. Severe concentric LVH. Severely increased septal wall thickness. Assessment and plan: -Suspect cor pulmonale acute on chronic with right-sided failure Lasix drip 10 mg an hour. Strict I's and O's. Fluid restriction -Chronic congestive heart failure exacerbation from diastolic dysfunction EF 55 to 60%: Fluid restrict -COPD no previous smoker DuoNeb needed. Symbicort -Bilateral lower extremity xeroderma Topical care -Obesity hypoventilation syndrome/pickwickian syndrome -Obstructive sleep apnea with the patient-previously had UPPP Does not use CPAP because of panic attacks -Paroxysmal atrial fibrillation, currently in sinus rhythm Lopressor. Eliquis. -Hypertensive heart disease with severe LVH Lopressor -Essential hypertension Lopressor -Bilateral knee arthralgia Tylenol when necessary -Morbid obesity BMI 63.1 Weight loss measures -Chronic lower extremity venous insufficiency with skin changes -Full code Past Medical History Past Medical History: Atrial Fibrillation, Asthma, COPD, GERD/Reflux, Osteoarthritis (OA), Pneumonia, Sleep Apnea/CPAP/BIPAP Additional Past Medical History / Comment(s): JEANIE/unable to tolerate cpap, pneumonias, bronchitis, chronic lower extremity lymphedema/redness/scabs, arthritis in multiple joints/chronic pain/chronic back pain History of Any Multi-Drug Resistant Organisms: None Reported Past Surgical History: Adenoidectomy, Appendectomy, Orthopedic Surgery, Tonsillectomy Additional Past Surgical History / Comment(s): Bilateral knee arthroscopy, UVPPP, carpal tunnel surgery, right shoulder surgery, colonoscopy/benign polypectomy. Past Anesthesia/Blood Transfusion Reactions: No Reported Reaction Past Psychological History: No Psychological Hx Reported Smoking Status: Former smoker Past Alcohol Use History: None Reported Past Drug Use History: None Reported - Past Family History Father History Unknown: Yes Family Medical History: Cancer Additional Family Medical History / Comment(s): . Mother History Unknown: Yes Family Medical History: Deep Vein Thrombosis (DVT) Medications and Allergies Home Medications Medication Instructions Recorded Confirmed Type Spironolactone [Aldactone] 25 mg PO DAILY 12/25/20 04/20/24 History Meloxicam 7.5 mg PO DAILY 08/05/21 04/20/24 History Umeclidinium [place] [Incruse 1 puff INHALATION RT-DAILY 12/18/23 04/20/24 History Ellipta] Albuterol Inhaler [Ventolin Hfa 1 - 2 puff INHALATION RT-Q6H PRN 02/06/24 04/20/24 History Inhaler] Apixaban [Eliquis] 5 mg PO BID 02/06/24 04/20/24 History Budesonide/Formoterol Fumarate 1 puff INHALATION RT-DAILY 02/06/24 04/20/24 History [Breyna 160-4.5 Mcg Inhaler] Fluticasone Propion/Salmeterol 2 puff INHALATION RT-BID 02/06/24 04/20/24 History [Advair Hfa 230-21 Mcg Inhaler] Furosemide [Lasix] 80 mg PO DAILY 02/24/24 04/20/24 History Nitroglycerin Sl Tabs [Nitrostat] 0.4 mg SUBLINGUAL Q5M PRN #20 tab 02/25/24 04/20/24 Rx Clotrimazole Cream [Lotrimin Cream] 1 applic TOPICAL BID #1 each 04/01/24 04/20/24 Rx Dapagliflozin Propanediol [Farxiga] 10 mg PO DAILY #30 tab 04/01/24 04/20/24 Rx Metoprolol Succinate (ER) [Toprol 50 mg PO DAILY #30 tab 04/01/24 04/20/24 Rx XL] Pantoprazole [Protonix] 40 mg PO AC-BRKFST #30 tab 04/01/24 04/20/24 Rx SILVER sulfADIAZINE CREAM 1 applic TOPICAL BID each 04/01/24 04/20/24 Rx [Silvadene Cream] Nystatin 100,000 Unit/gm Powd 1 applic TOPICAL DIRECTED 04/20/24 04/20/24 History [Mycostatin Powder] Allergies Allergy/AdvReac Type Severity Reaction Status Date / Time isosorbide [From Imdur] AdvReac headache & Verified 04/20/24 11:08 blurred vision metoprolol [From Toprol XL] AdvReac headache & Verified 04/20/24 11:08 blurred vision Physical Exam Vitals: Vital Signs Temp Pulse Pulse Resp BP BP Pulse Ox 04/20/24 19:32 98.0 F 83 18 122/57 96 04/20/24 17:57 84 18 99/81 98 04/20/24 15:09 84 18 132/42 96 04/20/24 14:49 95 04/20/24 13:37 82 18 117/68 97 04/20/24 11:10 18 04/20/24 10:57 86 111/60 93 L 04/20/24 09:43 98.1 F 85 18 106/62 95 Intake and Output 04/20/24 04/20/24 04/20/24 06:59 14:59 22:59 Intake Total 270 Output Total 1750 Balance -1480 Intake: Oral 270 Output: Urine 1750 Other: Weight 199.581 kg Results CBC & Chem 7: 04/20/24 10:55 04/20/24 10:55 Labs: Abnormal Lab Results - Last 24 Hours (Table) 04/20/24 04/20/24 Range/Units 10:55 10:55 Hgb 12.5 L (13.0-17.5) gm/dL Lymphocytes # 0.9 L (1.0-4.8) k/uL Sodium 135 L (137-145) mmol/L Creatinine 0.58 L (0.66-1.25) mg/dL Glucose 133 H (74-99) mg/dL Total Protein 5.6 L (6.3-8.2) g/dL Albumin 3.3 L (3.5-5.0) g/dL
[2024-04-20] MEDS ORDERED: NYSTATIN 100,000 UNIT/GM POWD 15 GM TOPICAL SCH (21:15)
[2024-04-20] MEDS: ACETAMINOPHEN TAB 500 MG TAB PO PRN (22:12)
[2024-04-20] MEDS: APIXABAN 5 MG TAB PO SCH (22:13)
[2024-04-20] MEDS: CLOTRIMAZOLE 1% CREAM 30 GM TUBE TOPICAL SCH (22:38)
[2024-04-20] MEDS: NYSTATIN 100,000 UNIT/GM POWD 15 GM TOPICAL SCH (22:38)
[2024-04-21] MEDS: PANTOPRAZOLE 40 MG TABLET PO SCH (05:35)
[2024-04-21] MEDS: DAPAGLIFLOZIN PROPANEDIOL 10 MG TABLET PO SCH (08:57)
[2024-04-21] MEDS: MELOXICAM 7.5 MG TAB PO SCH (08:57)
[2024-04-21] MEDS: IPRATROPIUM 0.5 MG/2.5 ML NEBU INHALATION SCH (09:32)
[2024-04-21] MEDS: SYMBICORT 160-4.5 MCG INHALER INHALATION SCH (09:32)
[2024-04-21 10:26] LABS: Basophils # (A) 0.04 X 10*3/uL (0.00-0.10); Basophils % (A) 0.4 %; Eosinophils # (A) 0.19 X 10*3/uL (0.04-0.35); Eosinophils % (A) 2.1 %; HCT 39.9 % (39.6-50.0); HGB 12.2 g/dL (13.0-17.0); Lymphocytes # (A) 0.88 X 10*3/uL (0.90-5.00); Lymphocytes % (A) 9.5 %; MCH 26.1 pg (27.0-32.0); MCHC 30.6 g/dL (32.0-37.0); MCV 85.3 FL (80.0-97.0); Mean Platelet Volume 9.7 FL (9.5-12.2); Monocytes # (A) 0.83 X 10*3/uL (0.20-1.00); NRBC Per 100 WBC 0 X 10*3/uL (0.00-0.01); Neutrophils # (A) 7.28 X 10*3/uL (1.80-7.70); Neutrophils % (A) 78.7 %; Platelet Count 259 X 10*3/uL (140-440); RBC 4.68 X 10*6/uL (4.40-5.60); RDW 14.3 % (11.5-14.5); WBC 9.25 X 10*3/uL (4.50-10.00)
[2024-04-21 10:37] LABS: BUN/Creat Ratio 16.14 Ratio (12.00-20.00); Blood Urea Nitrogen 11.3 mg/dL (9.0-27.0); Carbon Dioxide 33.2 mmol/L (21.6-31.8); Chloride 97 mmol/L (96-109); Glucose 146 mg/dL (70-110); Potassium 3.5 mmol/L (3.5-5.5); Sodium 143 mmol/L (135-145)
[2024-04-21 10:38] LABS: ALT 12 U/L (10-49); AST 18 U/L (14-35); Albumin 3.5 g/dL (3.8-4.9); Albumin/Globulin Ratio 1.67 Ratio (1.60-3.17); Alkaline Phosphatase 104 U/L (41-126); Calcium 8.1 mg/dL (8.7-10.3); Globulin 2.1 g/dL (1.6-3.3); Total Bilirubin 0.3 mg/dL (0.3-1.2); Total Protein 5.6 g/dL (6.2-8.2)
[2024-04-21] MEDS: SPIRONOLACTONE 25 MG TAB PO SCH (13:58)
[2024-04-21] MEDS: METOPROLOL SUCCINATE (ER) 50 MG TAB.ER.24H PO SCH (13:58)
--- NOTE | 2024-04-21 15:42 | P.PN ---
Progress Note - Text Progress Note Date: 04/21/24 Chief Complaint: Volume overload This is a pleasant 58 years old male ,Has a history of COPD, obstructive sleep apnea had a UPPP. Osteoarthritis in multiple joints especially the knees. Patient is chronically short of breath. Baseline uses crutches Presents because of worsening dyspnea and chest pain of 2 days duration At home he supposed to use CPAP but is not adherent with it because of his panic attack Patient presents with increased shortness of breath. Increasing edema. Unable to get about. Props up and sleeps. Denies any fever and chills. Tired. April 21: Patient remains on Lasix drip 10 mg an hour. About 4500 cc in negative fluid balance. On fluid restriction. Eating well Active Medications Acetaminophen (Acetaminophen Tab 500 Mg Tab) 500 mg PO Q6HR PRN PRN Reason: Fever and/ or Pain Last Admin: 04/20/24 22:12 Dose: 500 mg Albuterol Sulfate (Albuterol Nebulized 2.5 Mg/3 Ml) 2.5 mg INHALATION RT-Q6H PRN PRN Reason: Shortness Of Breath Or Wheezing Apixaban (Apixaban 5 Mg Tab) 5 mg PO BID [facility]; Protocol Last Admin: 04/21/24 08:57 Dose: 5 mg Budesonide/Formoterol Fumarate (Symbicort 160-4.5 Mcg Inhaler) 1 puff INHALATION RT-DAILY [facility] Last Admin: 04/21/24 09:32 Dose: Not Given Clotrimazole (Clotrimazole 1% Cream 30 Gm Tube) 1 applic TOPICAL BID [facility]; Protocol Last Admin: 04/20/24 22:38 Dose: 1 applic Dapagliflozin (Dapagliflozin Propanediol 10 Mg Tablet) 10 mg PO DAILY [facility] Last Admin: 04/21/24 08:57 Dose: 10 mg Furosemide 100 mg/ Sodium (Chloride) 100 mls @ 10 mls/hr IV .Q10H [facility] Last Admin: 04/21/24 08:56 Dose: 10 mg/hr, 10 mls/hr Ipratropium [place] (Ipratropium 0.5 Mg/2.5 Ml Nebu) 0.5 mg INHALATION RT-QID [facility] Last Admin: 04/21/24 12:43 Dose: 0.5 mg Meloxicam (Meloxicam 7.5 Mg Tab) 7.5 mg PO DAILY [facility] Last Admin: 04/21/24 08:57 Dose: 7.5 mg Metoprolol Succinate (Metoprolol Succinate (Er) 50 Mg Tab.Er.24h) 50 mg PO DAILY [facility] Last Admin: 04/21/24 13:58 Dose: Not Given Naloxone HCl (Naloxone 0.4 Mg/Ml 1 Ml Vial) 0.2 mg IV Q2M PRN PRN Reason: Opioid Reversal Nystatin (Nystatin 100,000 Unit/Gm Powd 15 Gm) 1 applic TOPICAL BID [facility]; Protocol Last Admin: 04/20/24 22:38 Dose: 1 applic Pantoprazole Sodium (Pantoprazole 40 Mg Tablet) 40 mg PO AC-BRKFST [facility] Last Admin: 04/21/24 05:35 Dose: 40 mg Spironolactone (Spironolactone 25 Mg Tab) 25 mg PO DAILY [facility] Last Admin: 04/21/24 13:58 Dose: Not Given Past medical history to include: COPD, osteoarthritis, obstructive sleep apnea with UPPP, dry skin Social history: Lives with brother. Smoked for about 14 years stopped in 2006. Currently not employed. Used to work at [employer]. Physical examination: VITAL SIGNS: 97.8, 98, 18, 93/57, 90% room air GENERAL: Reclining in bed short of breath EYES: Pupils equal. Conjunctiva normal. HEENT: External appearance of nose and ears normal, oral cavity grossly normal. NECK: JVD unable to assess masses not palpable. HEART: Heart sounds muffled; significant edema. LUNGS: Respiratory rate increased, distant breath sounds ABDOMEN: Soft, nontender, liver spleen not palpable, no masses palpable. PSYCH: Alert and oriented x3; mood and affect tired NEUROLOGICAL: Cranial nerves grossly intact; no facial asymmetry, power and sensation grossly intact. DERMATOLOGICAL: Redness lower extremity. Cyanosis. Cracking of the heel. INVESTIGATIONS, reviewed in the clinical context: April 21: White count 9.2 hemoglobin 12.2 potassium 3.5 creatinine 0.7 bicarb 33.2 April 20, 2024: White count 9.5 globin 12.5 platelets 22 sodium 135 potassium 3.6 creatinine 0.58 proBNP 205 EKG tracing personally reviewed by me-sinus rhythm. Intraventricular block Chest x-ray film personally reviewed by me-cardiomegaly. Some underpenetration Previous labs 2D echocardiogram: EF 55 to 60%. Severe concentric LVH. Severely increased septal wall thickness. Assessment and plan: -Suspect cor pulmonale acute on chronic with right-sided failure Lasix drip 10 mg an hour. Strict I's and O's. Fluid restriction -Chronic congestive heart failure exacerbation from diastolic dysfunction EF 55 to 60%: Fluid restrict -Some metabolic alkalosis Add Diamox -COPD no previous smoker DuoNeb needed. Symbicort -Bilateral lower extremity xeroderma Topical care -Obesity hypoventilation syndrome/pickwickian syndrome -Obstructive sleep apnea with the patient-previously had UPPP Does not use CPAP because of panic attacks -Paroxysmal atrial fibrillation, currently in sinus rhythm Lopressor. Eliquis. -Hypertensive heart disease with severe LVH Lopressor -Essential hypertension Lopressor -Bilateral knee arthralgia Tylenol when necessary -Morbid obesity BMI 63.1 Weight loss measures -Chronic lower extremity venous insufficiency with skin changes -Full code Past Medical History Past Medical History: Atrial Fibrillation, Asthma, COPD, GERD/Reflux, Osteoarthritis (OA), Pneumonia, Sleep Apnea/CPAP/BIPAP Additional Past Medical History / Comment(s): JEANIE/unable to tolerate cpap, pneumonias, bronchitis, chronic lower extremity lymphedema/redness/scabs, arthritis in multiple joints/chronic pain/chronic back pain History of Any Multi-Drug Resistant Organisms: None Reported Past Surgical History: Adenoidectomy, Appendectomy, Orthopedic Surgery, Tonsillectomy Additional Past Surgical History / Comment(s): Bilateral knee arthroscopy, UVPPP, carpal tunnel surgery, right shoulder surgery, colonoscopy/benign polypectomy. Past Anesthesia/Blood Transfusion Reactions: No Reported Reaction Past Psychological History: No Psychological Hx Reported Smoking Status: Former smoker Past Alcohol Use History: None Reported Past Drug Use History: None Reported
[2024-04-21] MEDS: acetaZOLAMIDE 250 MG TAB PO SCH (21:29)
[2024-04-22 06:32] LABS: African American GFR (CKD) >90 (>60 ml/min/1.73 sqM); Anion Gap 4 mmol/L; Blood Urea Nitrogen 16 mg/dL (9-20); Calcium 8.4 mg/dL (8.4-10.2); Carbon Dioxide 39 mmol/L (22-30); Chloride 97 mmol/L (98-107); Glucose 133 mg/dL (74-99); Non-African American GFR(CKD) >90 (>60 ml/min/1.73 sqM); Potassium 3.2 mmol/L (3.5-5.1); Sodium 140 mmol/L (137-145)
--- NOTE | 2024-04-22 13:24 | P.PN ---
Subjective Progress Note Date: 04/22/24 This is a pleasant 58 years old male ,Has a history of COPD, obstructive sleep apnea had a UPPP. Osteoarthritis in multiple joints especially the knees. Patient is chronically short of breath. Baseline uses crutches Presents because of worsening dyspnea and chest pain of 2 days duration At home he supposed to use CPAP but is not adherent with it because of his panic attack Patient presents with increased shortness of breath. Increasing edema. Unable to get about. Props up and sleeps. Denies any fever and chills. Tired. April 21: Patient remains on Lasix drip 10 mg an hour. About 4500 cc in negative fluid balance. On fluid restriction. Eating well 04/22. Patient seen and examined. Blood work done this morning showed sodium 140, potassium 3.2, BUN 16, creatinine 0.83, glucose 133. States swelling of legs has improved. Lasix drip was discontinued patient was transitioned to IV Lasix pushes. REVIEW OF SYSTEMS: CONSTITUTIONAL: No fever, no malaise,. CARDIOVASCULAR: No chest pain, no palpitations, no syncope. PULMONARY: No shortness of breath, no cough, GASTROINTESTINAL: No diarrhea, no nausea, no vomiting, no abdominal pain. NEUROLOGICAL: No headaches, no weakness, PHYSICAL EXAMINATION: GENERAL: The patient is alert and oriented x3, not in any acute distress. Well developed, well nourished. HEENT: Pupils are round and equally reacting to light. EOMI. No scleral icterus. No conjunctival pallor. Normocephalic, atraumatic. No pharyngeal erythema. No thyromegaly. CARDIOVASCULAR: S1 and S2 present. No murmurs, rubs, or gallops. PULMONARY: Diminished breath sounds at bases bilaterally, no crackles ABDOMEN: Soft, nontender, nondistended, normoactive bowel sounds. No palpable organomegaly. MUSCULOSKELETAL: No joint swelling or deformity. EXTREMITIES: Chronic lymphedema for extremities bilaterally NEUROLOGICAL: Gross neurological examination did not reveal any focal deficits. SKIN: No rashes. Assessment and plan -Suspect cor pulmonale acute on chronic with right-sided failure -Chronic congestive heart failure exacerbation from diastolic dysfunction EF 55 to 60%: metabolic alkalosis -COPD no previous smoker -Bilateral lower extremity xeroderma -Obesity hypoventilation syndrome/pickwickian syndrome -Obstructive sleep apnea with the patient-previously had UPPP -Paroxysmal atrial fibrillation -Hypertensive heart disease with severe LVH -Essential hypertension -Bilateral knee arthralgia -Morbid obesity BMI 63.1 -Chronic lower extremity venous insufficiency with skin changes Monitor vital signs monitor CBC Monitor CMP Strict I's and O's, daily weights continue IV Lasix Continue breathing treatment Continue Farxiga Continue Toprol Cardiology consulted Labs and medication were reviewed.. Continue same treatment. Continue with symptomatic treatment. Resume home medication. Monitor labs and vitals. DVT and GI prophylaxis. Further recommendations as per clinical course of the patient Dictation was produced using [employer] dictation software. please excuse any grammatical, word or spelling errors. Objective - Vital Signs Vital signs: Vital Signs Temp 97.7 F 04/22/24 07:35 Pulse 94 04/22/24 10:00 Resp 19 04/22/24 07:35 BP 104/42 04/22/24 07:35 Pulse Ox 93 L 04/22/24 07:35 FiO2 Intake & Output 04/21/24 04/22/24 04/22/24 18:59 06:59 18:59 Intake Total 920 Output Total 3400 3325 1890 Balance -2480 -3325 -1890 Weight 209 kg 149.23 kg Intake: Intake, IV Titration 200 Amount Furosemide 100 mg In 200 Sodium Chloride 0.9% 90 ml @ 10 MG/HR 10 mls/hr IV .Q10H [facility] Rx#: [id number] Oral 720 Output: Urine 3400 3325 1890 Other: Voiding Method Indwelling Catheter # Bowel Movements 1 - Labs CBC & Chem 7: 04/21/24 07:13 04/22/24 05:52 Labs: Abnormal Lab Results - Last 24 Hours (Table) 04/22/24 Range/Units 05:52 Potassium 3.2 L (3.5-5.1) mmol/L Chloride 97 L (98-107) mmol/L Carbon Dioxide 39 H (22-30) mmol/L Glucose 133 H (74-99) mg/dL
[2024-04-22] MEDS ORDERED: Potassium Replacement Protocol 1 EACH MISC MISCELLANE PRN (20:19)
[2024-04-22] MEDS: FUROSEMIDE 10 MG/ML 4 ML VIAL IV SCH (21:07)
[2024-04-22] MEDS: POTASSIUM CHLORIDE ER 20 MEQ TAB.ER PO STA (21:07)
[2024-04-23 11:18] LABS: ALT 13 U/L (10-49); AST 17 U/L (14-35); Albumin 3.8 g/dL (3.8-4.9); Albumin/Globulin Ratio 1.58 Ratio (1.60-3.17); Alkaline Phosphatase 110 U/L (41-126); Blood Urea Nitrogen 19.2 mg/dL (9.0-27.0); Calcium 9.1 mg/dL (8.7-10.3); Chloride 98 mmol/L (96-109); Globulin 2.4 g/dL (1.6-3.3); Glucose 125 mg/dL (70-110); Potassium 4.2 mmol/L (3.5-5.5); Sodium 143 mmol/L (135-145); Total Bilirubin 0.3 mg/dL (0.3-1.2); Total Protein 6.2 g/dL (6.2-8.2)
[2024-04-23 11:38] LABS: HCT 44.6 % (39.6-50.0); MCH 25.7 pg (27.0-32.0); MCHC 29.1 g/dL (32.0-37.0); MCV 88.1 FL (80.0-97.0); Mean Platelet Volume 9.3 FL (9.5-12.2); NRBC Per 100 WBC 0 X 10*3/uL (0.00-0.01); Platelet Count 283 X 10*3/uL (140-440); RBC 5.06 X 10*6/uL (4.40-5.60); RDW 14.3 % (11.5-14.5); WBC 9.74 X 10*3/uL (4.50-10.00)
--- NOTE | 2024-04-23 12:50 | P.PN ---
Subjective Progress Note Date: 04/23/24 This is a pleasant 58 years old male ,Has a history of COPD, obstructive sleep apnea had a UPPP. Osteoarthritis in multiple joints especially the knees. Patient is chronically short of breath. Baseline uses crutches Presents because of worsening dyspnea and chest pain of 2 days duration At home he supposed to use CPAP but is not adherent with it because of his panic attack Patient presents with increased shortness of breath. Increasing edema. Unable to get about. Props up and sleeps. Denies any fever and chills. Tired. April 21: Patient remains on Lasix drip 10 mg an hour. About 4500 cc in negative fluid balance. On fluid restriction. Eating well 04/22. Patient seen and examined. Blood work done this morning showed sodium 140, potassium 3.2, BUN 16, creatinine 0.83, glucose 133. States swelling of legs has improved. Lasix drip was discontinued patient was transitioned to IV Lasix pushes. 04/23. Patient seen and examined. Stated he feels better. Still making good urine. Patient has history of chronic lymphedema, states he feels his legs has become less swollen REVIEW OF SYSTEMS: CONSTITUTIONAL: No fever, no malaise,. CARDIOVASCULAR: No chest pain, no palpitations, no syncope. PULMONARY: No shortness of breath, no cough, GASTROINTESTINAL: No diarrhea, no nausea, no vomiting, no abdominal pain. NEUROLOGICAL: No headaches, no weakness, PHYSICAL EXAMINATION: GENERAL: The patient is alert and oriented x3, not in any acute distress. Well developed, well nourished. HEENT: Pupils are round and equally reacting to light. EOMI. No scleral icterus. No conjunctival pallor. Normocephalic, atraumatic. No pharyngeal erythema. No thyromegaly. CARDIOVASCULAR: S1 and S2 present. No murmurs, rubs, or gallops. PULMONARY: Diminished breath sounds at bases bilaterally, no crackles ABDOMEN: Soft, nontender, nondistended, normoactive bowel sounds. No palpable organomegaly. MUSCULOSKELETAL: No joint swelling or deformity. EXTREMITIES: Chronic lymphedema for extremities bilaterally NEUROLOGICAL: Gross neurological examination did not reveal any focal deficits. SKIN: No rashes. Assessment and plan -Suspect cor pulmonale acute on chronic with right-sided failure -Chronic congestive heart failure exacerbation from diastolic dysfunction EF 55 to 60%: metabolic alkalosis -COPD no previous smoker -Bilateral lower extremity xeroderma -Obesity hypoventilation syndrome/pickwickian syndrome -Obstructive sleep apnea with the patient-previously had UPPP -Paroxysmal atrial fibrillation -Hypertensive heart disease with severe LVH -Essential hypertension -Bilateral knee arthralgia -Morbid obesity BMI 63.1 -Chronic lower extremity venous insufficiency with skin changes Monitor vital signs monitor CBC Monitor CMP Strict I's and O's, daily weights continue IV Lasix 40 mg every 12 Continue breathing treatment Continue Farxiga Continue Toprol Cardiology consulted Labs and medication were reviewed.. Continue same treatment. Continue with symptomatic treatment. Resume home medication. Monitor labs and vitals. DVT and GI prophylaxis. Further recommendations as per clinical course of the patient Dictation was produced using [employer] dictation software. please excuse any grammatical, word or spelling errors. Objective - Vital Signs Vital signs: Vital Signs Temp 97.8 F 04/23/24 07:32 Pulse 100 04/23/24 09:14 Resp 18 04/23/24 09:14 BP 124/69 04/23/24 07:32 Pulse Ox 97 04/23/24 07:32 FiO2 Intake & Output 04/22/24 04/23/24 04/23/24 18:59 06:59 18:59 Intake Total 720 Output Total 3490 400 Balance -2770 -400 Weight 195.2 kg Intake: Oral 720 Output: Urine 3490 400 Other: Voiding Method Indwelling Catheter - Labs CBC & Chem 7: 04/23/24 03:34 04/23/24 03:34
[2024-04-23] MEDS: TAMSULOSIN 0.4 MG CAP.ER.24H PO SCH (18:05)
[2024-04-24 08:34] LABS: Basophils # (A) 0.05 X 10*3/uL (0.00-0.10); Basophils % (A) 0.5 %; Eosinophils # (A) 0.46 X 10*3/uL (0.04-0.35); Eosinophils % (A) 4.8 %; HCT 43.4 % (39.6-50.0); HGB 12.7 g/dL (13.0-17.0); Lymphocytes # (A) 1.16 X 10*3/uL (0.90-5.00); Lymphocytes % (A) 12.2 %; MCH 25.7 pg (27.0-32.0); MCHC 29.3 g/dL (32.0-37.0); MCV 87.9 FL (80.0-97.0); Mean Platelet Volume 9.2 FL (9.5-12.2); Monocytes # (A) 0.69 X 10*3/uL (0.20-1.00); Monocytes % (A) 7.2 %; NRBC Per 100 WBC 0 X 10*3/uL (0.00-0.01); Neutrophils # (A) 7.13 X 10*3/uL (1.80-7.70); Neutrophils % (A) 74.9 %; Platelet Count 303 X 10*3/uL (140-440); RBC 4.94 X 10*6/uL (4.40-5.60); RDW 14.1 % (11.5-14.5); WBC 9.53 X 10*3/uL (4.50-10.00)
[2024-04-24 08:42] LABS: ALT 14 U/L (10-49); AST 16 U/L (14-35); Albumin 3.9 g/dL (3.8-4.9); Alkaline Phosphatase 106 U/L (41-126); Blood Urea Nitrogen 23.1 mg/dL (9.0-27.0); Calcium 9.1 mg/dL (8.7-10.3); Carbon Dioxide 30.7 mmol/L (21.6-31.8); Chloride 102 mmol/L (96-109); Globulin 2.3 g/dL (1.6-3.3); Glucose 128 mg/dL (70-110); Potassium 4.1 mmol/L (3.5-5.5); Sodium 145 mmol/L (135-145); Total Bilirubin 0.2 mg/dL (0.3-1.2); Total Protein 6.2 g/dL (6.2-8.2)
--- NOTE | 2024-04-24 10:12 | P.CRDCN ---
History of Present Illness History of present illness: HISTORY OF PRESENT ILLNESS: This is a 58-year-old male with a past medical history significant for paroxysmal atrial fibrillation, GERD, osteoarthritis, chronic lower extremity lymphedema, and normal coronary arteries. Patient follows in the office with Dr. Alexis. We have been asked to see the patient in consultation for CHF. Patient examined at the bedside. Patient states he presented to the hospital with a chief complaint of shortness of breath. The patient was found to be in acute CHF and was started on IV Lasix. He continues to report shortness of breath this morning. He does report feeling congested. He reports an occasional cough but denies any sputum production. Denies any fever. He denies any chest pain or pressure. Vital signs are stable. The patient does report that he has not been compliant with a low-sodium diet at home. DIAGNOSTICS: - EKG reveals sinus mechanism with nonspecific ST-T wave changes. - Chest xray negative for acute process. - Laboratory data: WBC 9.53. Hemoglobin 12.7. Platelet count 303. Sodium 145. Potassium 4.1. BUN 23. Creatinine 0.7. - Current home cardiac medications include Eliquis 5 mg twice a day, Farxiga 10 mg daily, Lasix 80 mg daily, metoprolol succinate 50 mg daily, Aldactone 25 mg daily. - Most recent echocardiogram obtained in February 2024 revealed ejection fraction 55 to 60% with severe increased left ventricular wall thickness - Patient underwent dobutamine stress test on 04/10/2024 which was negative for ischemia - Cardiac catheterization history: June 17, 2023 revealing normal coronary arteries REVIEW OF SYSTEMS: At the time of my exam: CONSTITUTIONAL: Denies fever or chills. HEENT: Denies blurred vision, vision changes, or eye pain. Denies hemoptysis CARDIOVASCULAR: Denies chest pain. Denies orthopnea. Denies PND. Denies palpitations RESPIRATORY: Reports shortness of breath. GASTROINTESTINAL: Denies abdominal pain. Denies nausea or vomiting. HEMATOLOGIC: Denies bleeding disorders. GENITOURINARY: Denies any blood in urine. SKIN: Denies pruitis. Denies rash. PHYSICAL EXAM: VITAL SIGNS: Reviewed. GENERAL: Well-developed in no acute distress. HEENT: Head is normocephalic. Pupils are equal, round. Sclerae anicteric. Mucous membranes of the mouth are moist. Neck supple. No JVD or thyromegaly LUNGS: Respirations even and unlabored. Lungs diminished bilaterally. Congested upper airway. HEART: Regular rate and rhythm. S1 and S2 heard. ABDOMEN: Soft. Nondistended. Nontender. EXTREMITIES: Normal range of motion. No clubbing or cyanosis. Peripheral pulses intact. Chronic lower extremity edema/lymphedema NEUROLOGIC: Awake and alert. Oriented x 3. ASSESSMENT: Acute on chronic heart failure with preserved EF Paroxysmal atrial fibrillation Normal coronary arteries, per cardiac catheterization 06/2023 History of obstructive sleep apnea Morbid obesity: BMI 58.6 History of GERD History of osteoarthritis Chronic lower extremity lymphedema Noncompliance with low-sodium diet PLAN: No need to repeat echocardiogram as this was performed in February 2024 Continue current cardiac medications Continue IV Lasix 40 mg every 12 hours Daily weights, accurate intake and output, and monitoring of kidney function Further recommendations pending patient course Nurse practitioner note has been reviewed by physician. Signing provider agrees with the documented findings, assessment, and plan of care documented by SEA[employer]PARER as a scribe. Past Medical History Past Medical History: Atrial Fibrillation, Asthma, COPD, GERD/Reflux, Osteoarthritis (OA), Pneumonia, Sleep Apnea/CPAP/BIPAP Additional Past Medical History / Comment(s): JEANIE/unable to tolerate cpap, pneumonias, bronchitis, chronic lower extremity lymphedema/redness/scabs, arthritis in multiple joints/chronic pain/chronic back pain History of Any Multi-Drug Resistant Organisms: None Reported Past Surgical History: Adenoidectomy, Appendectomy, Orthopedic Surgery, Tonsillectomy Additional Past Surgical History / Comment(s): Bilateral knee arthroscopy, UVPPP, carpal tunnel surgery, right shoulder surgery, colonoscopy/benign polypectomy. Past Anesthesia/Blood Transfusion Reactions: No Reported Reaction Past Psychological History: No Psychological Hx Reported Additional Psychological History / Comment(s): Pt has a brother/nephew who live with him. Pt uses crutches to ambulate. Smoking Status: Former smoker Past Alcohol Use History: None Reported Additional Past Alcohol Use History / Comment(s): Pt started smoking in 1979 and quit smoking 12/09/2006. Past Drug Use History: None Reported - Past Family History Father History Unknown: Yes Family Medical History: Cancer Additional Family Medical History / Comment(s): . Mother History Unknown: Yes Family Medical History: Deep Vein Thrombosis (DVT) Medications and Allergies Home Medications Medication Instructions Recorded Confirmed Type Spironolactone [Aldactone] 25 mg PO DAILY 12/25/20 04/20/24 History Meloxicam 7.5 mg PO DAILY 08/05/21 04/20/24 History Umeclidinium [place] [Incruse 1 puff INHALATION RT-DAILY 12/18/23 04/20/24 History Ellipta] Albuterol Inhaler [Ventolin Hfa 1 - 2 puff INHALATION RT-Q6H PRN 02/06/24 04/20/24 History Inhaler] Apixaban [Eliquis] 5 mg PO BID 02/06/24 04/20/24 History Budesonide/Formoterol Fumarate 1 puff INHALATION RT-DAILY 02/06/24 04/20/24 History [Breyna 160-4.5 Mcg Inhaler] Fluticasone Propion/Salmeterol 2 puff INHALATION RT-BID 02/06/24 04/20/24 History [Advair Hfa 230-21 Mcg Inhaler] Furosemide [Lasix] 80 mg PO DAILY 02/24/24 04/20/24 History Nitroglycerin Sl Tabs [Nitrostat] 0.4 mg SUBLINGUAL Q5M PRN #20 tab 02/25/24 04/20/24 Rx Clotrimazole Cream [Lotrimin Cream] 1 applic TOPICAL BID #1 each 04/01/24 04/20/24 Rx Dapagliflozin Propanediol [Farxiga] 10 mg PO DAILY #30 tab 04/01/24 04/20/24 Rx Metoprolol Succinate (ER) [Toprol 50 mg PO DAILY #30 tab 04/01/24 04/20/24 Rx XL] Pantoprazole [Protonix] 40 mg PO AC-BRKFST #30 tab 04/01/24 04/20/24 Rx SILVER sulfADIAZINE CREAM 1 applic TOPICAL BID each 04/01/24 04/20/24 Rx [Silvadene Cream] Nystatin 100,000 Unit/gm Powd 1 applic TOPICAL DIRECTED 04/20/24 04/20/24 Hi story [Mycostatin Powder] Allergies Allergy/AdvReac Type Severity Reaction Status Date / Time isosorbide [From Imdur] AdvReac headache & Verified 04/20/24 11:08 blurred vision metoprolol [From Toprol XL] AdvReac headache & Verified 04/20/24 11:08 blurred vision Physical Exam Vitals: Vital Signs Temp Pulse Pulse Resp BP Pulse Ox 04/24/24 08:38 104 H 04/24/24 07:29 97.8 F 68 18 95/52 97 04/24/24 00:00 98.7 F 80 20 109/69 92 L 04/23/24 19:23 98.5 F 76 22 102/64 97 04/23/24 16:36 100 04/23/24 16:24 102 H 04/23/24 13:37 99.2 F 73 18 127/75 96 04/23/24 12:44 100 18 04/23/24 12:33 100 18 04/23/24 09:14 100 18 04/23/24 09:02 99 18 Intake and Output 04/23/24 04/24/24 04/24/24 22:59 06:59 14:59 Output Total 600 2325 Balance -600 -2325 Output: Urine 600 2325 Other: Voiding Method Indwelling Catheter Weight 191 kg Results 04/24/24 05:14 04/24/24 05:14 Cardiac Enzymes 04/23/24 Range/Units 03:34 AST 17 (14-35) U/L CBC 04/23/24 04/24/24 Range/Units 03:34 05:14 WBC 9.74 9.53 (4.50-10.00) X 10*3/uL RBC 5.06 4.94 (4.40-5.60) X 10*6/uL Hgb 13.0 12.7 L (13.0-17.0) g/dL Hct 44.6 43.4 (39.6-50.0) % Plt Count 283 303 (140-440) X 10*3/uL Comprehensive Metabolic Panel 04/23/24 Range/Units 03:34 Sodium 143 (135-145) mmol/L Potassium 4.2 (3.5-5.5) mmol/L Chloride 98 (96-109) mmol/L Carbon Dioxide 33.0 H (21.6-31.8) mmol/L BUN 19.2 (9.0-27.0) mg/dL Creatinine 0.8 (0.6-1.5) mg/dL Glucose 125 H (70-110) mg/dL Calcium 9.1 (8.7-10.3) mg/dL AST 17 (14-35) U/L ALT 13 (10-49) U/L Alkaline Phosphatase 110 (41-126) U/L Total Protein 6.2 (6.2-8.2) g/dL Albumin 3.8 (3.8-4.9) g/dL Current Medications Generic Name Dose Route Start Last Admin Trade Name Freq PRN Reason Stop Dose Admin Acetaminophen 500 mg 04/20/24 21:30 04/21/24 21:29 Acetaminophen Tab 500 Mg Tab PO 500 mg Q6HR PRN Administration Fever and/ or Pain Acetazolamide 250 mg 04/21/24 21:00 04/23/24 21:37 Acetazolamide 250 Mg Tab PO 250 mg BID TAMELA Administration Albuterol Sulfate 2.5 mg 04/20/24 13:30 Albuterol Nebulized 2.5 Mg/3 Ml INHALATION RT-Q6H PRN Shortness Of Breath Or Wheezing Apixaban 5 mg 04/20/24 21:00 04/23/24 21:37 Apixaban 5 Mg Tab PO 5 mg BID TAMELA Administration Protocol Budesonide/Formoterol Fumarate 1 puff 04/21/24 08:00 04/24/24 08:37 Symbicort 160-4.5 Mcg Inhaler INHALATION 1 puff RT-DAILY TAMELA Administration Clotrimazole 1 applic 04/20/24 21:15 04/23/24 21:38 Clotrimazole 1% Cream 30 Gm Tube TOPICAL 1 applic BID TAMELA Administration Protocol Dapagliflozin 10 mg 04/21/24 09:00 04/23/24 08:33 Dapagliflozin Propanediol 10 Mg Tablet PO 10 mg DAILY TAMELA Administration Furosemide 40 mg 04/22/24 21:00 04/23/24 21:37 Furosemide 10 Mg/Ml 4 Ml Vial IV 40 mg Q12HR TAMELA Administration Ipratropium [place] 0.5 mg 04/21/24 08:00 04/24/24 08:37 Ipratropium 0.5 Mg/2.5 Ml Nebu INHALATION 0.5 mg RT-QID TAMELA Administration Meloxicam 7.5 mg 04/21/24 09:00 04/23/24 08:34 Meloxicam 7.5 Mg Tab PO 7.5 mg DAILY TAMELA Administration Metoprolol Succinate 50 mg 04/21/24 09:00 04/23/24 08:33 Metoprolol Succinate (Er) 50 Mg Tab.Er.24h PO 50 mg DAILY TAMELA Administration Miscellaneous Information 1 each 04/22/24 20:19 Potassium Replacement Protocol 1 Each Misc MISCELLANE DAILY PRN Per Protocol Protocol Naloxone HCl 0.2 mg 04/20/24 12:29 Naloxone 0.4 Mg/Ml 1 Ml Vial IV Q2M PRN Opioid Reversal Nystatin 1 applic 04/20/24 22:15 04/23/24 21:37 Nystatin 100,000 Unit/Gm Powd 15 Gm TOPICAL 1 applic BID TAMELA Administration Protocol Pantoprazole Sodium 40 mg 04/21/24 07:30 04/24/24 06:50 Pantoprazole 40 Mg Tablet PO 40 mg AC-BRKFST TAMELA Administration Spironolactone 25 mg 04/21/24 09:00 04/23/24 08:33 Spironolactone 25 Mg Tab PO 25 mg DAILY TAMELA Administration Tamsulosin HCl 0.4 mg 04/23/24 18:30 04/23/24 18:05 Tamsulosin 0.4 Mg Cap.Er.24h PO Not Given PC-SUPPER TAMELA Intake and Output 04/23/24 04/24/24 04/24/24 22:59 06:59 14:59 Output Total 600 2325 Balance -600 -2325 Output: Urine 600 2325 Other: Voiding Method Indwelling Catheter Weight 191 kg 04/24/24 05:14 04/23/24 03:34
--- NOTE | 2024-04-24 13:18 | P.PN ---
Subjective Progress Note Date: 04/24/24 This is a pleasant 58 years old male ,Has a history of COPD, obstructive sleep apnea had a UPPP. Osteoarthritis in multiple joints especially the knees. Patient is chronically short of breath. Baseline uses crutches Presents because of worsening dyspnea and chest pain of 2 days duration At home he supposed to use CPAP but is not adherent with it because of his panic attack Patient presents with increased shortness of breath. Increasing edema. Unable to get about. Props up and sleeps. Denies any fever and chills. Tired. April 21: Patient remains on Lasix drip 10 mg an hour. About 4500 cc in negative fluid balance. On fluid restriction. Eating well 04/22. Patient seen and examined. Blood work done this morning showed sodium 140, potassium 3.2, BUN 16, creatinine 0.83, glucose 133. States swelling of legs has improved. Lasix drip was discontinued patient was transitioned to IV Lasix pushes. 04/23. Patient seen and examined. Stated he feels better. Still making good urine. Patient has history of chronic lymphedema, states he feels his legs has become less swollen 04/24. Patient seen and examined. Blood work done this morning showed sodium 145, potassium 4.1, BUN 23.1, creatinine 0.7. Complaining of shortness of breath on exertion. REVIEW OF SYSTEMS: CONSTITUTIONAL: No fever, no malaise,. CARDIOVASCULAR: No chest pain, no palpitations, no syncope. PULMONARY: As mentioned above GASTROINTESTINAL: No diarrhea, no nausea, no vomiting, no abdominal pain. NEUROLOGICAL: No headaches, no weakness, PHYSICAL EXAMINATION: GENERAL: The patient is alert and oriented x3, not in any acute distress. Well developed, well nourished. HEENT: Pupils are round and equally reacting to light. EOMI. No scleral icterus. No conjunctival pallor. Normocephalic, atraumatic. No pharyngeal erythema. No thyromegaly. CARDIOVASCULAR: S1 and S2 present. No murmurs, rubs, or gallops. PULMONARY: Diminished breath sounds at bases bilaterally, no crackles ABDOMEN: Soft, nontender, nondistended, normoactive bowel sounds. No palpable organomegaly. MUSCULOSKELETAL: No joint swelling or deformity. EXTREMITIES: Chronic lymphedema for extremities bilaterally NEUROLOGICAL: Gross neurological examination did not reveal any focal deficits. SKIN: No rashes. Assessment and plan -Suspect cor pulmonale acute on chronic with right-sided failure -Chronic congestive heart failure exacerbation from diastolic dysfunction EF 55 to 60%: metabolic alkalosis -COPD no previous smoker -Bilateral lower extremity xeroderma -Obesity hypoventilation syndrome/pickwickian syndrome -Obstructive sleep apnea with the patient-previously had UPPP -Paroxysmal atrial fibrillation -Hypertensive heart disease with severe LVH -Essential hypertension -Bilateral knee arthralgia -Morbid obesity BMI 63.1 -Chronic lower extremity venous insufficiency with skin changes Monitor vital signs monitor CBC Monitor CMP Strict I's and O's, daily weights continue IV Lasix 40 mg every 12 Continue breathing treatment Continue Farxiga Continue Toprol Cardiology following PT and OT consulted Labs and medication were reviewed.. Continue same treatment. Continue with symptomatic treatment. Resume home medication. Monitor labs and vitals. DVT and GI prophylaxis. Further recommendations as per clinical course of the patient Dictation was produced using [employer] dictation software. please excuse any grammatical, word or spelling errors. Objective - Vital Signs Vital signs: Vital Signs Temp 97.8 F 04/24/24 07:29 Pulse 100 04/24/24 08:53 Resp 18 04/24/24 07:29 BP 95/52 04/24/24 07:29 Pulse Ox 97 04/24/24 07:29 FiO2 Intake & Output 04/23/24 04/24/24 04/24/24 18:59 06:59 18:59 Output Total 3400 2325 Balance -3400 -2325 Weight 191 kg Output: Urine 3400 2325 Other: Voiding Method Indwelling Catheter Indwelling Catheter - Labs CBC & Chem 7: 04/24/24 05:14 04/24/24 05:14 Labs: Abnormal Lab Results - Last 24 Hours (Table) 04/23/24 04/23/24 04/24/24 Range/Units 03:34 03:34 05:14 Hgb 12.7 L (13.0-17.0) g/dL MCH 25.7 L 25.7 L (27.0-32.0) pg MCHC 29.1 L 29.3 L (32.0-37.0) g/dL MPV 9.3 L 9.2 L (9.5-12.2) FL Eosinophils # 0.46 H (0.04-0.35) X 10*3/uL Carbon Dioxide 33.0 H (21.6-31.8) mmol/L Anion Gap (4.00-12.00) mmol/L BUN/Creatinine Ratio 24.00 H (12.00-20.00) Ratio Glucose 125 H (70-110) mg/dL Total Bilirubin (0.3-1.2) mg/dL Albumin/Globulin Ratio 1.58 L (1.60-3.17) Ratio // Range/Units 05:14 Hgb (13.0-17.0) g/dL MCH (27.0-32.0) pg MCHC (32.0-37.0) g/dL MPV (9.5-12.2) FL Eosinophils # (0.04-0.35) X 10*3/uL Carbon Dioxide (21.6-31.8) mmol/L Anion Gap 12.30 H (4.00-12.00) mmol/L BUN/Creatinine Ratio 33.00 H (12.00-20.00) Ratio Glucose 128 H (70-110) mg/dL Total Bilirubin 0.2 L (0.3-1.2) mg/dL Albumin/Globulin Ratio (1.60-3.17) Ratio
[2024-04-25 08:44] LABS: BUN/Creat Ratio 31.88 Ratio (12.00-20.00); Blood Urea Nitrogen 25.5 mg/dL (9.0-27.0); Calcium 8.8 mg/dL (8.7-10.3); Carbon Dioxide 31.5 mmol/L (21.6-31.8); Chloride 100 mmol/L (96-109); Glucose 132 mg/dL (70-110); Potassium 3.7 mmol/L (3.5-5.5); Sodium 144 mmol/L (135-145)
--- NOTE | 2024-04-25 10:43 | P.PN ---
Subjective HISTORY OF PRESENT ILLNESS: This is a 58-year-old male with a past medical history significant for paroxysmal atrial fibrillation, GERD, osteoarthritis, chronic lower extremity lymphedema, and normal coronary arteries. Patient follows in the office with Dr. Alexis. We have been asked to see the patient in consultation for CHF. Patient examined at the bedside. Patient states he presented to the hospital with a chief complaint of shortness of breath. The patient was found to be in acute CHF and was started on IV Lasix. He continues to report shortness of breath this morning. He does report feeling congested. He reports an occasional cough but denies any sputum production. Denies any fever. He denies any chest pain or pressure. Vital signs are stable. The patient does report that he has not been compliant with a low-sodium diet at home. DIAGNOSTICS: - EKG reveals sinus mechanism with nonspecific ST-T wave changes. - Chest xray negative for acute process. - Laboratory data: WBC 9.53. Hemoglobin 12.7. Platelet count 303. Sodium 145. Potassium 4.1. BUN 23. Creatinine 0.7. - Current home cardiac medications include Eliquis 5 mg twice a day, Farxiga 10 mg daily, Lasix 80 mg daily, metoprolol succinate 50 mg daily, Aldactone 25 mg daily. - Most recent echocardiogram obtained in February 2024 revealed ejection fraction 55 to 60% with severe increased left ventricular wall thickness - Patient underwent dobutamine stress test on 04/10/2024 which was negative for ischemia - Cardiac catheterization history: June 17, 2023 revealing normal coronary arteries 04/25/2024 Patient examined this morning at the bedside. Patient denies chest pain or pressure. He continues to report shortness of breath and feels congested this morning. He remains on IV diuretics. Creatinine today 0.8. He is complaining of constipation this morning as well. Vital signs are stable. Apparently nursing was called overnight by telemetry and told the patient was in an accelerated junctional rhythm. EKG was obtained. Personal interpretation of EKG does not reveal a junctional rhythm but rather reveals ectopic atrial rhythm which is not concerning. PHYSICAL EXAM: VITAL SIGNS: Reviewed. GENERAL: Well-developed in no acute distress. HEENT: Head is normocephalic. Pupils are equal, round. Sclerae anicteric. Mucous membranes of the mouth are moist. Neck supple. No JVD or thyromegaly LUNGS: Respirations even and unlabored. Lungs diminished bilaterally. Congested upper airway. HEART: Regular rate and rhythm. S1 and S2 heard. ABDOMEN: Soft. Nondistended. Nontender. EXTREMITIES: Normal range of motion. No clubbing or cyanosis. Peripheral pulses intact. Chronic lower extremity edema/lymphedema NEUROLOGIC: Awake and alert. Oriented x 3. ASSESSMENT: Acute on chronic heart failure with preserved EF Paroxysmal atrial fibrillation Normal coronary arteries, per cardiac catheterization 06/2023 History of obstructive sleep apnea Morbid obesity: BMI 58.6 History of GERD History of osteoarthritis Chronic lower extremity lymphedema Noncompliance with low-sodium diet PLAN: No need to repeat echocardiogram as this was performed in February 2024 Continue current cardiac medications Continue IV Lasix 40 mg every 12 hours Daily weights, accurate intake and output, and monitoring of kidney function Further recommendations pending patient course Nurse practitioner note has been reviewed by physician. Signing provider agrees with the documented findings, assessment, and plan of care documented by APPRENTICE PLUMBER as a scribe. Objective - Vital Signs Vital signs: Vital Signs Temp 98.1 F 04/25/24 07:34 Pulse 72 04/25/24 08:32 Resp 18 04/25/24 08:32 BP 125/74 04/25/24 07:34 Pulse Ox 96 04/25/24 08:00 FiO2 Intake & Output 04/24/24 04/25/24 04/25/24 18:59 06:59 18:59 Intake Total 240 Output Total 2600 Balance -2600 240 Weight 188.9 kg Intake: Oral 240 Output: Urine 2600 Other: Voiding Method Indwelling Catheter Indwelling Catheter Indwelling Catheter - Labs CBC & Chem 7: 04/24/24 05:14 04/25/24 03:35 Labs: Abnormal Lab Results - Last 24 Hours (Table) 04/25/24 Range/Units 03:35 Anion Gap 12.50 H (4.00-12.00) mmol/L BUN/Creatinine Ratio 31.88 H (12.00-20.00) Ratio Glucose 132 H (70-110) mg/dL
--- NOTE | 2024-04-25 14:50 | P.PN ---
Subjective Progress Note Date: 04/25/24 This is a pleasant 58 years old male ,Has a history of COPD, obstructive sleep apnea had a UPPP. Osteoarthritis in multiple joints especially the knees. Patient is chronically short of breath. Baseline uses crutches Presents because of worsening dyspnea and chest pain of 2 days duration At home he supposed to use CPAP but is not adherent with it because of his panic attack Patient presents with increased shortness of breath. Increasing edema. Unable to get about. Props up and sleeps. Denies any fever and chills. Tired. April 21: Patient remains on Lasix drip 10 mg an hour. About 4500 cc in negative fluid balance. On fluid restriction. Eating well 04/22. Patient seen and examined. Blood work done this morning showed sodium 140, potassium 3.2, BUN 16, creatinine 0.83, glucose 133. States swelling of legs has improved. Lasix drip was discontinued patient was transitioned to IV Lasix pushes. 04/23. Patient seen and examined. Stated he feels better. Still making good urine. Patient has history of chronic lymphedema, states he feels his legs has become less swollen 04/24. Patient seen and examined. Blood work done this morning showed sodium 145, potassium 4.1, BUN 23.1, creatinine 0.7. Complaining of shortness of breath on exertion. 04/25. Patient seen and examined. Patient continued diuresed well. Blood work done this morning showed sodium 144, potassium 3.7, BUN 25.5, creatinine 0.8. Breathing is improved. REVIEW OF SYSTEMS: CONSTITUTIONAL: No fever, no malaise,. CARDIOVASCULAR: No chest pain, no palpitations, no syncope. PULMONARY: As mentioned above GASTROINTESTINAL: No diarrhea, no nausea, no vomiting, no abdominal pain. NEUROLOGICAL: No headaches, no weakness, PHYSICAL EXAMINATION: GENERAL: The patient is alert and oriented x3, not in any acute distress. Well developed, well nourished. HEENT: Pupils are round and equally reacting to light. EOMI. No scleral icterus. No conjunctival pallor. Normocephalic, atraumatic. No pharyngeal erythema. No thyromegaly. CARDIOVASCULAR: S1 and S2 present. No murmurs, rubs, or gallops. PULMONARY: Diminished breath sounds at bases bilaterally, no crackles ABDOMEN: Soft, nontender, nondistended, normoactive bowel sounds. No palpable organomegaly. MUSCULOSKELETAL: No joint swelling or deformity. EXTREMITIES: Chronic lymphedema for extremities bilaterally NEUROLOGICAL: Gross neurological examination did not reveal any focal deficits. SKIN: No rashes. Assessment and plan -Suspect cor pulmonale acute on chronic with right-sided failure -Chronic congestive heart failure exacerbation from diastolic dysfunction EF 55 to 60%: metabolic alkalosis -COPD no previous smoker -Bilateral lower extremity xeroderma -Obesity hypoventilation syndrome/pickwickian syndrome -Obstructive sleep apnea with the patient-previously had UPPP -Paroxysmal atrial fibrillation -Hypertensive heart disease with severe LVH -Essential hypertension -Bilateral knee arthralgia -Morbid obesity BMI 63.1 -Chronic lower extremity venous insufficiency with skin changes Monitor vital signs monitor CBC Monitor CMP Strict I's and O's, daily weights continue IV Lasix 40 mg every 12 Continue breathing treatment Continue Farxiga Continue Toprol Cardiology following PT and OT consulted Labs and medication were reviewed.. Continue same treatment. Continue with symptomatic treatment. Resume home medication. Monitor labs and vitals. DVT and GI prophylaxis. Further recommendations as per clinical course of the [place] Dictation was produced using [employer] dictation software. please excuse any grammatical, word or spelling errors. Objective - Vital Signs Vital signs: Vital Signs Temp 98.1 F 04/25/24 07:34 Pulse 72 04/25/24 08:32 Resp 18 04/25/24 08:32 BP 125/74 04/25/24 07:34 Pulse Ox 96 04/25/24 08:00 FiO2 Intake & Output 04/24/24 04/25/24 04/25/24 18:59 06:59 18:59 Intake Total 240 Output Total 2600 Balance -2600 240 Weight 188.9 kg Intake: Oral 240 Output: Urine 2600 Other: Voiding Method Indwelling Catheter Indwelling Catheter Indwelling Catheter - Labs CBC & Chem 7: 04/24/24 05:14 04/25/24 03:35 Labs: Abnormal Lab Results - Last 24 Hours (Table) 04/25/24 Range/Units 03:35 Anion Gap 12.50 H (4.00-12.00) mmol/L BUN/Creatinine Ratio 31.88 H (12.00-20.00) Ratio Glucose 132 H (70-110) mg/dL
[2024-04-26 08:37] LABS: Basophils # (A) 0.04 X 10*3/uL (0.00-0.10); Basophils % (A) 0.5 %; Eosinophils # (A) 0.48 X 10*3/uL (0.04-0.35); Eosinophils % (A) 5.6 %; HCT 45.3 % (39.6-50.0); HGB 13.1 g/dL (13.0-17.0); Lymphocytes # (A) 1.29 X 10*3/uL (0.90-5.00); MCH 25.2 pg (27.0-32.0); MCHC 28.9 g/dL (32.0-37.0); MCV 87.3 FL (80.0-97.0); Mean Platelet Volume 9.7 FL (9.5-12.2); Monocytes # (A) 0.69 X 10*3/uL (0.20-1.00); NRBC Per 100 WBC 0 X 10*3/uL (0.00-0.01); Neutrophils # (A) 6.07 X 10*3/uL (1.80-7.70); Neutrophils % (A) 70.6 %; Platelet Count 310 X 10*3/uL (140-440); RBC 5.19 X 10*6/uL (4.40-5.60); RDW 13.9 % (11.5-14.5)
[2024-04-26 08:45] LABS: BUN/Creat Ratio 32.22 Ratio (12.00-20.00); Glucose 140 mg/dL (70-110)
[2024-04-26 08:46] LABS: ALT 14 U/L (10-49); AST 18 U/L (14-35); Albumin/Globulin Ratio 1.67 Ratio (1.60-3.17); Alkaline Phosphatase 102 U/L (41-126); Calcium 9.2 mg/dL (8.7-10.3); Carbon Dioxide 32.4 mmol/L (21.6-31.8); Chloride 99 mmol/L (96-109); Globulin 2.4 g/dL (1.6-3.3); Potassium 3.7 mmol/L (3.5-5.5); Sodium 143 mmol/L (135-145); Total Bilirubin 0.2 mg/dL (0.3-1.2); Total Protein 6.4 g/dL (6.2-8.2)
--- NOTE | 2024-04-26 12:00 | P.PN ---
Subjective HISTORY OF PRESENT ILLNESS: This is a 58-year-old male with a past medical history significant for paroxysmal atrial fibrillation, GERD, osteoarthritis, chronic lower extremity lymphedema, and normal coronary arteries. Patient follows in the office with Dr. Alexis. We have been asked to see the patient in consultation for CHF. Patient examined at the bedside. Patient states he presented to the hospital with a chief complaint of shortness of breath. The patient was found to be in acute CHF and was started on IV Lasix. He continues to report shortness of breath this morning. He does report feeling congested. He reports an occasional cough but denies any sputum production. Denies any fever. He denies any chest pain or pressure. Vital signs are stable. The patient does report that he has not been compliant with a low-sodium diet at home. DIAGNOSTICS: - EKG reveals sinus mechanism with nonspecific ST-T wave changes. - Chest xray negative for acute process. - Laboratory data: WBC 9.53. Hemoglobin 12.7. Platelet count 303. Sodium 145. Potassium 4.1. BUN 23. Creatinine 0.7. - Current home cardiac medications include Eliquis 5 mg twice a day, Farxiga 10 mg daily, Lasix 80 mg daily, metoprolol succinate 50 mg daily, Aldactone 25 mg daily. - Most recent echocardiogram obtained in February 2024 revealed ejection fraction 55 to 60% with severe increased left ventricular wall thickness - Patient underwent dobutamine stress test on 04/10/2024 which was negative for ischemia - Cardiac catheterization history: June 17, 2023 revealing normal coronary arteries 04/25/2024 Patient examined this morning at the bedside. Patient denies chest pain or pressure. He continues to report shortness of breath and feels congested this morning. He remains on IV diuretics. Creatinine today 0.8. He is complaining of constipation this morning as well. Vital signs are stable. Apparently nursing was called overnight by telemetry and told the patient was in an accelerated junctional rhythm. EKG was obtained. Personal interpretation of EKG does not reveal a junctional rhythm but rather reveals ectopic atrial rhythm which is not concerning. 04/26/2024 Patient examined this morning the bedside. Patient continues to report s hortness of breath. He denies any chest pain or pressure. Vital signs are stable. He remains on IV Lasix 40 mg every 12 hours. PHYSICAL EXAM: VITAL SIGNS: Reviewed. GENERAL: Well-developed in no acute distress. HEENT: Head is normocephalic. Pupils are equal, round. Sclerae anicteric. Mucous membranes of the mouth are moist. Neck supple. No JVD or thyromegaly LUNGS: Respirations even and unlabored. Lungs diminished bilaterally. Congested upper airway. HEART: Regular rate and rhythm. S1 and S2 heard. ABDOMEN: Soft. Nondistended. Nontender. EXTREMITIES: Normal range of motion. No clubbing or cyanosis. Peripheral pulses intact. Chronic lower extremity edema/lymphedema NEUROLOGIC: Awake and alert. Oriented x 3. ASSESSMENT: Acute on chronic heart failure with preserved EF Paroxysmal atrial fibrillation Normal coronary arteries, per cardiac catheterization 06/2023 History of obstructive sleep apnea Morbid obesity: BMI 58.6 History of GERD History of osteoarthritis Chronic lower extremity lymphedema Noncompliance with low-sodium diet PLAN: No need to repeat echocardiogram as this was performed in February 2024 Continue current cardiac medications Continue IV Lasix 40 mg every 12 hours Daily weights, accurate intake and output, and monitoring of kidney function Further recommendations pending patient course Nurse practitioner note has been reviewed by physician. Signing provider agrees with the documented findings, assessment, and plan of care documented by MACHINIST APPRENTICE WOOD as a scribe. Objective - Vital Signs Vital signs: Vital Signs Temp 97.6 F 04/26/24 08:00 Pulse 68 04/26/24 11:26 Resp 22 04/26/24 08:00 BP 102/67 04/26/24 08:00 Pulse Ox 91 L 04/26/24 08:00 FiO2 Intake & Output 04/25/24 04/26/24 04/26/24 18:59 06:59 18:59 Intake Total 1260 240 Output Total 2300 Balance -1040 240 Weight 191.6 kg Intake: Oral 1260 240 Output: Urine 2300 Other: Voiding Method Indwelling Catheter Indwelling Catheter - Labs CBC & Chem 7: 04/26/24 04:16 04/26/24 04:16 Labs: Abnormal Lab Results - Last 24 Hours (Table) 04/26/24 04/26/24 Range/Units 04:16 04:16 MCH 25.2 L (27.0-32.0) pg MCHC 28.9 L (32.0-37.0) g/dL Eosinophils # 0.48 H (0.04-0.35) X 10*3/uL Carbon Dioxide 32.4 H (21.6-31.8) mmol/L BUN 29.0 H (9.0-27.0) mg/dL BUN/Creatinine Ratio 32.22 H (12.00-20.00) Ratio Glucose 140 H (70-110) mg/dL Total Bilirubin 0.2 L (0.3-1.2) mg/dL
--- NOTE | 2024-04-26 13:16 | P.PN ---
Subjective Progress Note Date: 04/26/24 This is a pleasant 58 years old male ,Has a history of COPD, obstructive sleep apnea had a UPPP. Osteoarthritis in multiple joints especially the knees. Patient is chronically short of breath. Baseline uses crutches Presents because of worsening dyspnea and chest pain of 2 days duration At home he supposed to use CPAP but is not adherent with it because of his panic attack Patient presents with increased shortness of breath. Increasing edema. Unable to get about. Props up and sleeps. Denies any fever and chills. Tired. April 21: Patient remains on Lasix drip 10 mg an hour. About 4500 cc in negative fluid balance. On fluid restriction. Eating well 04/22. Patient seen and examined. Blood work done this morning showed sodium 140, potassium 3.2, BUN 16, creatinine 0.83, glucose 133. States swelling of legs has improved. Lasix drip was discontinued patient was transitioned to IV Lasix pushes. 04/23. Patient seen and examined. Stated he feels better. Still making good urine. Patient has history of chronic lymphedema, states he feels his legs has become less swollen 04/24. Patient seen and examined. Blood work done this morning showed sodium 145, potassium 4.1, BUN 23.1, creatinine 0.7. Complaining of shortness of breath on exertion. 04/25. Patient seen and examined. Patient continued diuresed well. Blood work done this morning showed sodium 144, potassium 3.7, BUN 25.5, creatinine 0.8. Breathing is improved. 04/26. Patient seen and examined. PT and OT recommend rehab. Patient is still diuresing very well. Denies any shortness of breath at rest. Gets short of breath on exertion. REVIEW OF SYSTEMS: CONSTITUTIONAL: No fever, no malaise,. CARDIOVASCULAR: No chest pain, no palpitations, no syncope. PULMONARY: As mentioned above GASTROINTESTINAL: No diarrhea, no nausea, no vomiting, no abdominal pain. NEUROLOGICAL: No headaches, no weakness, PHYSICAL EXAMINATION: GENERAL: The patient is alert and oriented x3, not in any acute distress. Well developed, well nourished. HEENT: Pupils are round and equally reacting to light. EOMI. No scleral icterus. No conjunctival pallor. Normocephalic, atraumatic. No pharyngeal erythema. No thyromegaly. CARDIOVASCULAR: S1 and S2 present. No murmurs, rubs, or gallops. PULMONARY: Diminished breath sounds at bases bilaterally, no crackles ABDOMEN: Soft, nontender, nondistended, normoactive bowel sounds. No palpable organomegaly. MUSCULOSKELETAL: No joint swelling or deformity. EXTREMITIES: Chronic lymphedema for extremities bilaterally NEUROLOGICAL: Gross neurological examination did not reveal any focal deficits. SKIN: No rashes. Assessment and plan -Suspect cor pulmonale acute on chronic with right-sided failure -Chronic congestive heart failure exacerbation from diastolic dysfunction EF 55 to 60%: metabolic alkalosis -COPD no previous smoker -Bilateral lower extremity xeroderma -Obesity hypoventilation syndrome/pickwickian syndrome -Obstructive sleep apnea with the patient-previously had UPPP -Paroxysmal atrial fibrillation -Hypertensive heart disease with severe LVH -Essential hypertension -Bilateral knee arthralgia -Morbid obesity BMI 63.1 -Chronic lower extremity venous insufficiency with skin changes Monitor vital signs monitor CBC Monitor CMP Strict I's and O's, daily weights continue IV Lasix 40 mg every 12 Continue breathing treatment Continue Farxiga Continue Toprol Cardiology following PT and OT recommend rehab Labs and medication were reviewed.. Continue same treatment. Continue with symptomatic treatment. Resume home medication. Monitor labs and vitals. DVT and GI prophylaxis. Further recommendations as per clinical course of the patient Dictation was produced using [employer] dictation software. please excuse any grammatical, word or spelling errors. Objective - Vital Signs Vital signs: Vital Signs Temp 97.6 F 04/26/24 08:00 Pulse 68 04/26/24 11:26 Resp 22 04/26/24 08:00 BP 102/67 04/26/24 08:00 Pulse Ox 91 L 04/26/24 08:00 FiO2 Intake & Output 04/25/24 04/26/24 04/26/24 18:59 06:59 18:59 Intake Total 1260 240 Output Total 2300 1100 Balance -1040 -860 Weight 191.6 kg Intake: Oral 1260 240 Output: Urine 2300 1100 Uretheral (Snell) 1100 Other: Voiding Method Indwelling Catheter Indwelling Catheter Indwelling Catheter # Bowel Movements 1 - Labs CBC & Chem 7: 04/26/24 04:16 04/26/24 04:16 Labs: Abnormal Lab Results - Last 24 Hours (Table) 04/26/24 04/26/24 Range/Units 04:16 04:16 MCH 25.2 L (27.0-32.0) pg MCHC 28.9 L (32.0-37.0) g/dL Eosinophils # 0.48 H (0.04-0.35) X 10*3/uL Carbon Dioxide 32.4 H (21.6-31.8) mmol/L BUN 29.0 H (9.0-27.0) mg/dL BUN/Creatinine Ratio 32.22 H (12.00-20.00) Ratio Glucose 140 H (70-110) mg/dL Total Bilirubin 0.2 L (0.3-1.2) mg/dL
[2024-04-26 14:12] VITALS: BMI 60.6
--- NOTE | 2024-04-27 10:49 | P.PN ---
Subjective HISTORY OF PRESENT ILLNESS: This is a 58-year-old male with a past medical history significant for paroxysmal atrial fibrillation, GERD, osteoarthritis, chronic lower extremity lymphedema, and normal coronary arteries. Patient follows in the office with Dr. Alexis. We have been asked to see the patient in consultation for CHF. Patient examined at the bedside. Patient states he presented to the hospital with a chief complaint of shortness of breath. The patient was found to be in acute CHF and was started on IV Lasix. He continues to report shortness of breath this morning. He does report feeling congested. He reports an occasional cough but denies any sputum production. Denies any fever. He denies any chest pain or pressure. Vital signs are stable. The patient does report that he has not been compliant with a low-sodium diet at home. DIAGNOSTICS: - EKG reveals sinus mechanism with nonspecific ST-T wave changes. - Chest xray negative for acute process. - Laboratory data: WBC 9.53. Hemoglobin 12.7. Platelet count 303. Sodium 145. Potassium 4.1. BUN 23. Creatinine 0.7. - Current home cardiac medications include Eliquis 5 mg twice a day, Farxiga 10 mg daily, Lasix 80 mg daily, metoprolol succinate 50 mg daily, Aldactone 25 mg daily. - Most recent echocardiogram obtained in February 2024 revealed ejection fraction 55 to 60% with severe increased left ventricular wall thickness - Patient underwent dobutamine stress test on 04/10/2024 which was negative for ischemia - Cardiac catheterization history: June 17, 2023 revealing normal coronary arteries 04/25/2024 Patient examined this morning at the bedside. Patient denies chest pain or pressure. He continues to report shortness of breath and feels congested this morning. He remains on IV diuretics. Creatinine today 0.8. He is complaining of constipation this morning as well. Vital signs are stable. Apparently nursing was called overnight by telemetry and told the patient was in an accelerated junctional rhythm. EKG was obtained. Personal interpretation of EKG does not reveal a junctional rhythm but rather reveals ectopic atrial rhythm which is not concerning. 04/26/2024 Patient examined this morning the bedside. Patient continues to report s hortness of breath. He denies any chest pain or pressure. Vital signs are stable. He remains on IV Lasix 40 mg every 12 hours. 04/27/2024 Patient examined this morning at the bedside. Patient denies chest pain or pressure. He continues to report shortness of breath. He zeynep on IV diuretics. PHYSICAL EXAM: VITAL SIGNS: Reviewed. GENERAL: Well-developed in no acute distress. HEENT: Head is normocephalic. Pupils are equal, round. Sclerae anicteric. Mucous membranes of the mouth are moist. Neck supple. No JVD or thyromegaly LUNGS: Respirations even and unlabored. Lungs with bibasilar crackles and expiratory wheezing. HEART: Regular rate and rhythm. S1 and S2 heard. ABDOMEN: Soft. Nondistended. Nontender. EXTREMITIES: Normal range of motion. No clubbing or cyanosis. Peripheral puls es intact. Chronic lower extremity edema/lymphedema NEUROLOGIC: Awake and alert. Oriented x 3. ASSESSMENT: Acute on chronic heart failure with preserved EF Paroxysmal atrial fibrillation Normal coronary arteries, per cardiac catheterization 06/2023 History of obstructive sleep apnea Morbid obesity: BMI 58.6 History of GERD History of osteoarthritis Chronic lower extremity lymphedema Noncompliance with low-sodium diet PLAN: No need to repeat echocardiogram as this was performed in February 2024 Continue current cardiac medications Continue IV Lasix 40 mg every 12 hours Daily weights, accurate intake and output, and monitoring of kidney function Further recommendations pending patient course Nurse practitioner note has been reviewed by physician. Signing provider agrees with the documented findings, assessment, and plan of care documented by AUTOMATIC TIRE TESTER as a scribe. Objective - Vital Signs Vital signs: Vital Signs Temp 98.9 F 04/27/24 08:00 Pulse 70 04/27/24 09:20 Resp 17 04/27/24 08:00 BP 120/74 04/27/24 08:00 Pulse Ox 96 04/27/24 08:00 FiO2 Intake & Output 04/26/24 04/27/24 04/27/24 18:59 06:59 18:59 Intake Total 480 500 Output Total 1100 2550 Balance - -2049 Weight 191.6 kg 188.7 kg Intake: Oral 480 500 Output: Urine 1100 2550 Uretheral (Snell) 1100 Other: Voiding Method Indwelling Catheter Indwelling Catheter Indwelling Catheter # Bowel Movements 1 - Labs CBC & Chem 7: 04/26/24 04:16 04/26/24 04:16
[2024-04-27 10:50] LABS: BUN/Creat Ratio 34.88 Ratio (12.00-20.00); Blood Urea Nitrogen 27.9 mg/dL (9.0-27.0); Calcium 8.9 mg/dL (8.7-10.3); Carbon Dioxide 32.4 mmol/L (21.6-31.8); Chloride 99 mmol/L (96-109); Glucose 150 mg/dL (70-110); Potassium 3.8 mmol/L (3.5-5.5); Sodium 143 mmol/L (135-145)
[2024-04-27] MEDS: PSYLLIUM HUSK 100% 6 GM PACKET PO SCH (12:17)
--- NOTE | 2024-04-27 17:52 | P.PN ---
Progress Note - Text Progress Note Date: 04/27/24 Chief Complaint: Volume overload This is a pleasant 58 years old male ,Has a history of COPD, obstructive sleep apnea had a UPPP. Osteoarthritis in multiple joints especially the knees. Patient is chronically short of breath. Baseline uses crutches Presents because of worsening dyspnea and chest pain of 2 days duration At home he supposed to use CPAP but is not adherent with it because of his panic attack Patient presents with increased shortness of breath. Increasing edema. Unable to get about. Props up and sleeps. Denies any fever and chills. Tired. April 21: Patient remains on Lasix drip 10 mg an hour. About 4500 cc in negative fluid balance. On fluid restriction. Eating well 04/22. Patient seen and examined. Blood work done this morning showed sodium 140, potassium 3.2, BUN 16, creatinine 0.83, glucose 133. States swelling of legs has improved. Lasix drip was discontinued patient was transitioned to IV Lasix pushes. 04/23. Patient seen and examined. Stated he feels better. Still making good urine. Patient has history of chronic lymphedema, states he feels his legs has become less swollen 04/24. Patient seen and examined. Blood work done this morning showed sodium 145, potassium 4.1, BUN 23.1, creatinine 0.7. Complaining of shortness of breath on exertion. 04/25. Patient seen and examined. Patient continued diuresed well. Blood work done this morning showed sodium 144, potassium 3.7, BUN 25.5, creatinine 0.8. Breathing is improved. 04/26. Patient seen and examined. PT and OT recommend rehab. Patient is still diuresing very well. Denies any shortness of breath at rest. Gets short of breath on exertion. April 27: Patient on IV Lasix 40 mg every 12. Has been in good negative fluid balance. edema significantly come down. Remains on fluid restriction. Plan for discharge to [facility] rehab tomorrow. Patient eating well. Active Medications Acetaminophen (Acetaminophen Tab 500 Mg Tab) 500 mg PO Q6HR PRN PRN Reason: Fever and/ or Pain Last Admin: 04/27/24 08:31 Dose: 500 mg Acetazolamide (Acetazolamide 250 Mg Tab) 250 mg PO BID TAMELA Last Admin: 04/27/24 08:27 Dose: 250 mg Albuterol Sulfate (Albuterol Nebulized 2.5 Mg/3 Ml) 2.5 mg INHALATION RT-Q6H PRN PRN Reason: Shortness Of Breath Or Wheezing Apixaban (Apixaban 5 Mg Tab) 5 mg PO BID [facility]; Protocol Last Admin: 04/27/24 08:27 Dose: 5 mg Budesonide/Formoterol Fumarate (Symbicort 160-4.5 Mcg Inhaler) 1 puff INHA LATION RT-DAILY [facility] Last Admin: 04/27/24 09:07 Dose: 1 puff Clotrimazole (Clotrimazole 1% Cream 30 Gm Tube) 1 applic TOPICAL BID [facility]; Protocol Last Admin: 04/27/24 08:29 Dose: 1 applic Dapagliflozin (Dapagliflozin Propanediol 10 Mg Tablet) 10 mg PO DAILY [facility] Last Admin: 04/27/24 08:27 Dose: 10 mg Furosemide (Furosemide 10 Mg/Ml 4 Ml Vial) 40 mg IV Q12HR [facility] Last Admin: 04/27/24 08:29 Dose: 40 mg Ipratropium [place] (Ipratropium 0.5 Mg/2.5 Ml Nebu) 0.5 mg INHALATION RT-QID [facility] Last Admin: 04/27/24 15:56 Dose: 0.5 mg Meloxicam (Meloxicam 7.5 Mg Tab) 7.5 mg PO DAILY [facility] Last Admin: 04/27/24 08:28 Dose: 7.5 mg Metoprolol Succinate (Metoprolol Succinate (Er) 50 Mg Tab.Er.24h) 50 mg PO DAILY [facility] Last Admin: 04/27/24 08:29 Dose: 50 mg Miscellaneous Information (Potassium Replacement Protocol 1 Each Misc) 1 each MISCELLANE DAILY PRN; Protocol PRN Reason: Per Protocol Naloxone HCl (Naloxone 0.4 Mg/Ml 1 Ml Vial) 0.2 mg IV Q2M PRN PRN Reason: Opioid Reversal Nystatin (Nystatin 100,000 Unit/Gm Powd 15 Gm) 1 applic TOPICAL BID [facility]; Protocol Last Admin: 04/27/24 08:29 Dose: 1 applic Pantoprazole Sodium (Pantoprazole 40 Mg Tablet) 40 mg PO AC-BRKFST [facility] Last Admin: 04/27/24 07:00 Dose: 40 mg Psyllium Hydrophilic Mucilloid (Psyllium Husk 100% 6 Gm Packet) 6 gm PO DAILY [facility] Last Admin: 04/27/24 12:17 Dose: 6 gm Spironolactone (Spironolactone 25 Mg Tab) 25 mg PO DAILY [facility] Last Admin: 04/27/24 08:29 Dose: 25 mg Tamsulosin HCl (Tamsulosin 0.4 Mg Cap.Er.24h) 0.4 mg PO PC-SUPPER [facility] Last Admin: 04/27/24 17:23 Dose: 0.4 mg Past medical history to include: COPD, osteoarthritis, obstructive sleep apnea with UPPP, dry skin Social history: Lives with brother. Smoked for about 14 years stopped in 2006. Currently not employed. Used to work at [employer]. Physical examination: VITAL SIGNS: 97.8, 65,'s 19, 1 one 7 x 78, 91% room air GENERAL: Reclining in bed comfortable EYES: Pupils equal. Conjunctiva normal. HEENT: External appearance of nose and ears normal, oral cavity grossly normal. NECK: JVD unable to assess masses not palpable. HEART: Heart sounds muffled; edema much improved LUNGS: Respiratory rate normal, distant breath sounds ABDOMEN: Soft, nontender, liver spleen not palpable, no masses palpable. PSYCH: Alert and oriented x3; mood and affect tired NEUROLOGICAL: Cranial nerves grossly intact; no facial asymmetry, power and sensation grossly intact. DERMATOLOGICAL: Redness lower extremity. Cyanosis. Cracking of the heel. INVESTIGATIONS, reviewed in the clinical context: April 27: Sodium 143 potassium 3.8 creatinine 0.8 bicarb 32.4 April 21: White count 9.2 hemoglobin 12.2 potassium 3.5 creatinine 0.7 bicarb 33.2 April 20, 2024: White count 9.5 globin 12.5 platelets 22 sodium 135 potassium 3.6 creatinine 0.58 proBNP 205 EKG tracing personally reviewed by me-sinus rhythm. Intraventricular block Chest x-ray film personally reviewed by me-cardiomegaly. Some underpenetration Previous labs 2D echocardiogram: EF 55 to 60%. Severe concentric LVH. Severely increased septal wall thickness. Assessment and plan: -Suspect cor pulmonale acute on chronic with right-sided failure Getting IV Lasix. Fluid restriction. About 25 L in negative fluid balance -Chronic congestive heart failure exacerbation from diastolic dysfunction EF 55 to 60%: Fluid restrict -Some metabolic alkalosis Add Diamox -COPD no previous smoker DuoNeb needed. Symbicort -Bilateral lower extremity xeroderma Topical care -Obesity hypoventilation syndrome/pickwickian syndrome -Obstructive sleep apnea with the patient-previously had UPPP Does not use CPAP because of panic attacks -Paroxysmal atrial fibrillation, currently in sinus rhythm Lopressor. Eliquis. -Hypertensive heart disease with severe LVH Lopressor -Essential hypertension Lopressor -Bilateral knee arthralgia Tylenol when necessary -Morbid obesity BMI 63.1 Weight loss measures -Chronic lower extremity venous insufficiency with skin changes -Full code Discussed with patient and case management rn. Probably discharge to rehab tomorrow. Past Medical History Past Medical History: Atrial Fibrillation, Asthma, COPD, GERD/Reflux, Osteoarthritis (OA), Pneumonia, Sleep Apnea/CPAP/BIPAP Additional Past Medical History / Comment(s): JEANIE/unable to tolerate cpap, pneumonias, bronchitis, chronic lower extremity lymphedema/redness/scabs, arthritis in multiple joints/chronic pain/chronic back pain History of Any Multi-Drug Resistant Organisms: None Reported Past Surgical History: Adenoidectomy, Appendectomy, Orthopedic Surgery, Tonsillectomy Additional Past Surgical History / Comment(s): Bilateral knee arthroscopy, UVPPP, carpal tunnel surgery, right shoulder surgery, colonoscopy/benign polypectomy. Past Anesthesia/Blood Transfusion Reactions: No Reported Reaction Past Psychological History: No Psychological Hx Reported Smoking Status: Former smoker Past Alcohol Use History: None Reported Past Drug Use History: None Reported
[2024-04-27] MEDS ORDERED: ZINC OXIDE PASTE (Z-GUARD) 1 APPLIC TOPICAL PRN (18:02)
--- NOTE | 2024-04-28 11:52 | P.PN ---
Subjective HISTORY OF PRESENT ILLNESS: This is a 58-year-old male with a past medical history significant for paroxysmal atrial fibrillation, GERD, osteoarthritis, chronic lower extremity lymphedema, and normal coronary arteries. Patient follows in the office with Dr. Alexis. We have been asked to see the patient in consultation for CHF. Patient examined at the bedside. Patient states he presented to the hospital with a chief complaint of shortness of breath. The patient was found to be in acute CHF and was started on IV Lasix. He continues to report shortness of breath this morning. He does report feeling congested. He reports an occasional cough but denies any sputum production. Denies any fever. He denies any chest pain or pressure. Vital signs are stable. The patient does report that he has not been compliant with a low-sodium diet at home. DIAGNOSTICS: - EKG reveals sinus mechanism with nonspecific ST-T wave changes. - Chest xray negative for acute process. - Laboratory data: WBC 9.53. Hemoglobin 12.7. Platelet count 303. Sodium 145. Potassium 4.1. BUN 23. Creatinine 0.7. - Current home cardiac medications include Eliquis 5 mg twice a day, Farxiga 10 mg daily, Lasix 80 mg daily, metoprolol succinate 50 mg daily, Aldactone 25 mg daily. - Most recent echocardiogram obtained in February 2024 revealed ejection fraction 55 to 60% with severe increased left ventricular wall thickness - Patient underwent dobutamine stress test on 04/10/2024 which was negative for ischemia - Cardiac catheterization history: June 17, 2023 revealing normal coronary arteries 04/25/2024 Patient examined this morning at the bedside. Patient denies chest pain or pressure. He continues to report shortness of breath and feels congested this morning. He remains on IV diuretics. Creatinine today 0.8. He is complaining of constipation this morning as well. Vital signs are stable. Apparently nursing was called overnight by telemetry and told the patient was in an accelerated junctional rhythm. EKG was obtained. Personal interpretation of EKG does not reveal a junctional rhythm but rather reveals ectopic atrial rhythm which is not concerning. 04/26/2024 Patient examined this morning the bedside. Patient continues to report s hortness of breath. He denies any chest pain or pressure. Vital signs are stable. He remains on IV Lasix 40 mg every 12 hours. 04/27/2024 Patient examined this morning at the bedside. Patient denies chest pain or pressure. He continues to report shortness of breath. He zeynep on IV diuretics. April 28 2024 Patient examined this morning at the bedside. Patient denies chest pain or pressure. He reports improvement in his shortness of breath. He remains on IV diuretics. Lower extremity edema is improving. Vital signs are stable. PHYSICAL EXAM: VITAL SIGNS: Reviewed. GENERAL: Well-developed in no acute distress. HEENT: Head is normocephalic. Pupils are equal, round. Sclerae anicteric. Mucous membranes of the mouth are moist. Neck supple. No JVD or thyromegaly LUNGS: Respirations even and unlabored. Lungs with expiratory wheezing. HEART: Regular rate and rhythm. S1 and S2 heard. ABDOMEN: Soft. Nondistended. Nontender. EXTREMITIES: Normal range of motion. No clubbing or cyanosis. Peripheral pulses intact. Chronic lower extremity edema/lymphedema NEUROLOGIC: Awake and alert. Oriented x 3. ASSESSMENT: Acute on chronic heart failure with preserved EF Paroxysmal atrial fibrillation Normal coronary arteries, per cardiac catheterization 06/2023 History of obstructive sleep apnea Morbid obesity: BMI 58.6 History of GERD History of osteoarthritis Chronic lower extremity lymphedema Noncompliance with low-sodium diet PLAN: No need to repeat echocardiogram as this was performed in February 2024 Continue current cardiac medications Continue IV Lasix 40 mg every 12 hours Daily weights, accurate intake and output, and monitoring of kidney function Further recommendations pending patient course Nurse practitioner note has been reviewed by physician. Signing provider agrees with the documented findings, assessment, and plan of care documented by BELT SEWER as a scribe. Objective - Vital Signs Vital signs: Vital Signs Temp 97.7 F 04/28/24 01:40 Pulse 65 04/28/24 01:40 Resp 18 04/28/24 01:40 BP 130/76 04/28/24 01:40 Pulse Ox 98 04/28/24 01:40 FiO2 Intake & Output 04/27/24 04/28/24 04/28/24 18:59 06:59 18:59 Intake Total 888 Output Total 1350 2049 Balance - -2049 Weight 188.7 kg 186 kg Intake: Oral 888 Output: Urine 1350 2049 Uretheral (Snell) 2049 Other: Voiding Method Indwelling Catheter Indwelling Catheter - Labs CBC & Chem 7: 04/26/24 04:16 04/27/24 07:06 Labs: Abnormal Lab Results - Last 24 Hours (Table) 04/27/24 Range/Units 07:06 Carbon Dioxide 32.4 H (21.6-31.8) mmol/L BUN 27.9 H (9.0-27.0) mg/dL BUN/Creatinine Ratio 34.88 H (12.00-20.00) Ratio Glucose 150 H (70-110) mg/dL
--- NOTE | 2024-04-28 13:48 | P.DS ---
Providers Date of admission: 04/20/24 13:16 Expected date of discharge: 04/28/24 Attending physician: Kiran Quiroz Consults: 04/22/24 11:20 Consult Physician Routine Consulting Provider: Juma Velez Consult Reason/Comments: CHF exacerbation Do you want consulting provider notified?: Yes Primary care physician: [facility] Course: Chief Complaint: Volume overload This is a pleasant 58 years old male ,Has a history of COPD, obstructive sleep apnea had a UPPP. Osteoarthritis in multiple joints especially the knees. Patient is chronically short of breath. Baseline uses crutches Presents because of worsening dyspnea and chest pain of 2 days duration At home he supposed to use CPAP but is not adherent with it because of his panic attack Patient presents with increased shortness of breath. Increasing edema. Unable to get about. Props up and sleeps. Denies any fever and chills. Tired. April 21: Patient remains on Lasix drip 10 mg an hour. About 4500 cc in negative fluid balance. On fluid restriction. Eating well 04/22. Patient seen and examined. Blood work done this morning showed sodium 140, potassium 3.2, BUN 16, creatinine 0.83, glucose 133. States swelling of legs has improved. Lasix drip was discontinued patient was transitioned to IV Lasix pushes. 04/23. Patient seen and examined. Stated he feels better. Still making good urine. Patient has history of chronic lymphedema, states he feels his legs has become less swollen 04/24. Patient seen and examined. Blood work done this morning showed sodium 145, potassium 4.1, BUN 23.1, creatinine 0.7. Complaining of shortness of breath on exertion. 04/25. Patient seen and examined. Patient continued diuresed well. Blood work done this morning showed sodium 144, potassium 3.7, BUN 25.5, creatinine 0.8. Breathing is improved. 04/26. Patient seen and examined. PT and OT recommend rehab. Patient is still diuresing very well. Denies any shortness of breath at rest. Gets short of breath on exertion. April 27: Patient on IV Lasix 40 mg every 12. Has been in good negative fluid balance. edema significantly come down. Remains on fluid restriction. Plan for discharge to [facility] rehab tomorrow. Patient eating well. Elis 21: Patient is at over 25 L in negative fluid balance since presentation. Edema come down. Eating well. Will discharge to rehab today. Discussed with patient. Fluid restriction to maintain. 2200-calorie restriction diet. Discussion and discharge planning more than 35 minutes Past medical history to include: COPD, osteoarthritis, obstructive sleep apnea with UPPP, dry skin Social history: Lives with brother. Smoked for about 14 years stopped in 2006. Currently not employed. Used to work at [employer]. Physical examination: VITAL SIGNS: 90.4, 66, 18, 131 x 77: A 7% on 2 L GENERAL: Reclining in bed comfortable EYES: Pupils equal. Conjunctiva normal. HEENT: External appearance of nose and ears normal, oral cavity grossly normal. NECK: JVD unable to assess masses not palpable. HEART: Heart sounds muffled; edema much improved LUNGS: Respiratory rate normal, distant breath sounds ABDOMEN: Soft, nontender, liver spleen not palpable, no masses palpable. PSYCH: Alert and oriented x3; mood and affect tired NEUROLOGICAL: Cranial nerves grossly intact; no facial asymmetry, power and sensation grossly intact. DERMATOLOGICAL: Redness lower extremity. Cyanosis. Cracking of the heel. INVESTIGATIONS, reviewed in the clinical context: April 27: Sodium 143 potassium 3.8 creatinine 0.8 bicarb 32.4 April 21: White count 9.2 hemoglobin 12.2 potassium 3.5 creatinine 0.7 bicarb 33.2 April 20, 2024: White count 9.5 globin 12.5 platelets 22 sodium 135 potassium 3.6 creatinine 0.58 proBNP 205 EKG tracing personally reviewed by me-sinus rhythm. Intraventricular block Chest x-ray film personally reviewed by me-cardiomegaly. Some underpenetration Previous labs 2D echocardiogram: EF 55 to 60%. Severe concentric LVH. Severely increased septal wall thickness. Assessment and plan: -Suspect cor pulmonale acute on chronic with right-sided failure Getting IV Lasix. Fluid restriction. About 25 L in negative fluid balance Discharged on Lasix 80 mg a day -Chronic congestive heart failure exacerbation from diastolic dysfunction EF 55 to 60%: Fluid restrict 2000 cc a day Lasix 80 mg a day -Some metabolic alkalosis Received Diamox -COPD no previous smoker DuoNeb Symbicort -Bilateral lower extremity xeroderma Topical care -Obesity hypoventilation syndrome/pickwickian syndrome -Obstructive sleep apnea with the patient-previously had UPPP Does not use CPAP because of panic attacks -Paroxysmal atrial fibrillation, currently in sinus rhythm Lopressor. Eliquis. -Hypertensive heart disease with severe LVH Lopressor -Essential hypertension Lopressor -Bilateral knee arthralgia Tylenol when necessary -Morbid obesity BMI 63.1 Weight loss measures -Chronic lower extremity venous insufficiency with skin changes -Full code Disposition: [facility] Labs: BMP magnesium-3 days Past Medical History Past Medical History: Atrial Fibrillation, Asthma, COPD, GERD/Reflux, Osteoarthritis (OA), Pneumonia, Sleep Apnea/CPAP/BIPAP Additional Past Medical History / Comment(s): JEANIE/unable to tolerate cpap, pne umonias, bronchitis, chronic lower extremity lymphedema/redness/scabs, arthritis in multiple joints/chronic pain/chronic back pain History of Any Multi-Drug Resistant Organisms: None Reported Past Surgical History: Adenoidectomy, Appendectomy, Orthopedic Surgery, Tonsillectomy Additional Past Surgical History / Comment(s): Bilateral knee arthroscopy, UVPPP, carpal tunnel surgery, right shoulder surgery, colonoscopy/benign polypectomy. Past Anesthesia/Blood Transfusion Reactions: No Reported Reaction Past Psychological History: No Psychological Hx Reported Smoking Status: Former smoker Past Alcohol Use History: None Reported Past Drug Use History: None Reported Plan - Discharge Summary Discharge Rx Participant: No New Discharge Prescriptions: New Psyllium Husk 100% [Metamucil Packet] 6 gm PO DAILY packet Tamsulosin [Flomax] 0.4 mg PO PC-SUPPER cap Acetaminophen Tab [Tylenol] 500 mg PO Q6HR PRN tab PRN Reason: Fever And/ Or Pain Continue Spironolactone [Aldactone] 25 mg PO DAILY Umeclidinium [place] [Incruse Ellipta] 1 puff INHALATION RT-DAILY Budesonide/Formoterol Fumarate [Breyna 160-4.5 Mcg Inhaler] 1 puff INHALATION RT-DAILY Furosemide [Lasix] 80 mg PO DAILY Pantoprazole [Protonix] 40 mg PO AC-BRKFST #30 tab SILVER sulfADIAZINE CREAM [Silvadene Cream] 1 applic TOPICAL BID each Metoprolol Succinate (ER) [Toprol XL] 50 mg PO DAILY #30 tab Meloxicam 7.5 mg PO DAILY Apixaban [Eliquis] 5 mg PO BID Albuterol Inhaler [Ventolin Hfa Inhaler] 1 - 2 puff INHALATION RT-Q6H PRN PRN Reason: Shortness Of Breath Or Wheezing Fluticasone Propion/Salmeterol [Advair Hfa 230-21 Mcg Inhaler] 2 puff INHALATION RT-BID Nitroglycerin Sl Tabs [Nitrostat] 0.4 mg SUBLINGUAL Q5M PRN #20 tab PRN Reason: Chest Pain Dapagliflozin Propanediol [Farxiga] 10 mg PO DAILY #30 tab Clotrimazole Cream [Lotrimin Cream] 1 applic TOPICAL BID #1 each Nystatin 100,000 Unit/gm Powd [Mycostatin Powder] 1 applic TOPICAL BID #0 Discharge Medication List Spironolactone [Aldactone] 25 mg PO DAILY 12/25/20 [History] Meloxicam 7.5 mg PO DAILY 08/05/21 [History] Umeclidinium [place] [Incruse Ellipta] 1 puff INHALATION RT-DAILY 12/18/23 [History] Albuterol Inhaler [Ventolin Hfa Inhaler] 1 - 2 puff INHALATION RT-Q6H PRN [History] Apixaban [Eliquis] 5 mg PO BID 02/06/24 [History] Budesonide/Formoterol Fumarate [Breyna 160-4.5 Mcg Inhaler] 1 puff INHALATION RT-DAILY 02/06/24 [History] Fluticasone Propion/Salmeterol [Advair Hfa 230-21 Mcg Inhaler] 2 puff INHALATION RT-BID 02/06/24 [History] Furosemide [Lasix] 80 mg PO DAILY 02/24/24 [History] Nitroglycerin Sl Tabs [Nitrostat] 0.4 mg SUBLINGUAL Q5M PRN #20 tab 02/25/24 [Rx] Clotrimazole Cream [Lotrimin Cream] 1 applic TOPICAL BID #1 each 04/01/24 [Rx] Dapagliflozin Propanediol [Farxiga] 10 mg PO DAILY #30 tab 04/01/24 [Rx] Metoprolol Succinate (ER) [Toprol XL] 50 mg PO DAILY #30 tab 04/01/24 [Rx] Pantoprazole [Protonix] 40 mg PO AC-BRKFST #30 tab 04/01/24 [Rx] SILVER sulfADIAZINE CREAM [Silvadene Cream] 1 applic TOPICAL BID each 04/01/24 [Rx] Acetaminophen Tab [Tylenol] 500 mg PO Q6HR PRN tab 04/28/24 [Rx] Nystatin 100,000 Unit/gm Powd [Mycostatin Powder] 1 applic TOPICAL BID #0 04/28/24 [Rx] Psyllium Husk 100% [Metamucil Packet] 6 gm PO DAILY packet 04/28/24 [Rx] Tamsulosin [Flomax] 0.4 mg PO PC-SUPPER cap 04/28/24 [Rx] Follow up Appointment(s)/Referral(s): Alfredo Hope DO [Primary Care Provider] - [facility] [facility] [place] - As Needed Activity/Diet/Wound Care/Special Instructions: fluid restrict 2000 cc/day 2200 caolire diet
[2024-04-28 14:12] VITALS: BP 105/79; PULSE 67; RESP 24; TEMP 97.5
== END 2024-04-28 16:28 | DRG 291 ==
LOC: EC 09:24 → 4SSUR 13:16
PROVIDERS: ADMIT Hospitalist; ATTEND Hospitalist
DX: I11.0 Hypertensive heart disease with heart failure (principal); I50.33 Acute on chronic diastolic (congestive) heart failure; E66.2 Morbid (severe) obesity with alveolar hypoventilation; E87.3 Alkalosis; Z68.44 Body mass index [BMI] 60.0-69.9, adult; J44.9 Chronic obstructive pulmonary disease, unspecified; I50.813 Acute on chronic right heart failure; F17.210 Nicotine dependence, cigarettes, uncomplicated; I48.0 Paroxysmal atrial fibrillation; I87.2 Venous insufficiency (chronic) (peripheral); I89.0 Lymphedema, not elsewhere classified; I27.81 Cor pulmonale (chronic); M17.0 Bilateral primary osteoarthritis of knee; Z88.8 Allergy status to other drugs, medicaments and biological substances
CPT/HCPCS: 36415; 51798; 71046; 80048; 80053; 81003; 83735; 83880; 85025; 85027; 85610; 85730; 93005; 94640; 94760; 96365; 96366; 99285

== ENCOUNTER 2024-06-25 10:15 | Inpatient (IN) | payer MEDICARE, OTHER ==
[~2024-06-25 10:15] MED LIST changes: +ACETAMINOPHEN TAB 500 MG TAB ONE; -ALPRAZolam 0.25 MG TAB PO PRN; -ALPRAZolam 0.5 MG TAB PO PRN; -ASPIRIN 325 MG TAB PO STA; -ATORVASTATIN 80 MG TAB PO STA; -HEPARIN SODIUM,PORCINE (1 ML) 2,500 UNIT in SODIUM CHLORIDE 0.9% 250 ML IRRIGATION PRN; -HEPARIN SODIUM,PORCINE 10,000 UNIT in SODIUM CHLORIDE 0.9% 1,000 ML IRRIGATION PRN; +IBUPROFEN 800 MG TAB ONE; +MORPHINE SULFATE 4 MG/ML SYRINGE ONE; -NITROGLYCERIN SL TABS 0.4 MG TAB SUBLINGUAL PRN; +SODIUM CHLORIDE 0.9% 1,000 ML BAG ONE; -SODIUM CHLORIDE 0.9% 1,000 ML in EMPTY BAG 1 BAG IV SCH; +SODIUM CHLORIDE 0.9% 500 ML BAG ONE
[2024-06-25] MEDS ORDERED: AZITHROMYCIN 500 MG VIAL IVPB ONE (11:25)
[2024-06-25] MEDS ORDERED: cefTRIAXone 2 GM VIAL ONE ×2 (11:26→23:59)
[2024-06-25] MEDS ORDERED: methylPREDNISolone SOD SUCCI 125 MG/2 ML VIAL ONE ×3 (14:43→16:59)
[2024-06-25] MEDS ORDERED: guaiFENesin 600 MG TABLET.ER PO ONE ×3 (14:51→23:59)
[2024-06-25] MEDS ORDERED: IPRATROPIUM-ALBUTEROL 3 ML NEB ONE (15:23)
[2024-06-25] MEDS ORDERED: FUROSEMIDE 10 MG/ML 4 ML VIAL ONE (17:04)
[2024-06-25] MEDS ORDERED: MONTELUKAST 10 MG TAB ONE ×2 (17:07→23:59)
[2024-06-25] MEDS ORDERED: HYDROcodone/APAP 5-325MG 1 EACH TAB ONE (18:21)
[2024-06-25] MEDS ORDERED: APIXABAN 5 MG TAB ONE (20:21)
[2024-06-25] MEDS ORDERED: SODIUM CHLORIDE 0.9% 1,000 ML BAG ONE (23:59)
[2024-06-25] MEDS ORDERED: SODIUM CHLORIDE 0.9% 50 ML BAG IV ONE (23:59)
[2024-06-26] MEDS ORDERED: methylPREDNISolone SOD SUCCI 125 MG/2 ML VIAL ONE ×5 (00:15→23:17)
[2024-06-26] MEDS ORDERED: PIPERACILLIN-TAZOBACTAM 3.375 GM VIAL ONE ×4 (00:15→22:17)
[2024-06-26] MEDS ORDERED: IPRATROPIUM-ALBUTEROL 3 ML NEB ONE ×2 (05:07→19:43)
[2024-06-26] MEDS ORDERED: PANTOPRAZOLE 40 MG TABLET PO ONE (09:36)
[2024-06-26] MEDS ORDERED: guaiFENesin 600 MG TABLET.ER PO ONE ×2 (09:37→22:16)
[2024-06-26] MEDS ORDERED: AZITHROMYCIN 500 MG TAB ONE (09:37)
[2024-06-26] MEDS ORDERED: MELOXICAM 7.5 MG TAB ONE (09:37)
[2024-06-26] MEDS ORDERED: FUROSEMIDE 10 MG/ML 4 ML VIAL ONE ×2 (09:37→22:16)
[2024-06-26] MEDS ORDERED: APIXABAN 5 MG TAB ONE ×2 (09:37→22:17)
[2024-06-26] MEDS ORDERED: DAPAGLIFLOZIN PROPANEDIOL 10 MG TABLET ONE (09:37)
[2024-06-26] MEDS ORDERED: FORMOTEROL FUMARATE 20 MCG/2 ML NEBU INHALATION ONE ×2 (16:19→19:43)
[2024-06-26] MEDS ORDERED: BUDESONIDE 1 MG/2 ML NEBU INHALATION ONE (16:19)
[2024-06-26] MEDS ORDERED: INSULIN ASPART (NovoLOG) 100 UNIT/ML VIAL SQ ONE ×2 (17:11→22:17)
[2024-06-26] MEDS ORDERED: MONTELUKAST 10 MG TAB ONE (22:16)
[2024-06-27] MEDS ORDERED: FORMOTEROL FUMARATE 20 MCG/2 ML NEBU INHALATION ONE (05:00)
[2024-06-27] MEDS ORDERED: BUDESONIDE 1 MG/2 ML NEBU INHALATION ONE (05:00)
[2024-06-27] MEDS ORDERED: IPRATROPIUM-ALBUTEROL 3 ML NEB ONE (05:00)
[2024-06-27] MEDS ORDERED: PIPERACILLIN-TAZOBACTAM 3.375 GM VIAL ONE ×3 (06:42→20:05)
[2024-06-27] MEDS ORDERED: methylPREDNISolone SOD SUCCI 125 MG/2 ML VIAL ONE ×3 (06:42→17:23)
[2024-06-27] MEDS ORDERED: PANTOPRAZOLE 40 MG TABLET PO ONE (10:00)
[2024-06-27] MEDS ORDERED: guaiFENesin 600 MG TABLET.ER PO ONE ×2 (10:00→20:04)
[2024-06-27] MEDS ORDERED: LORATADINE 10 MG TAB ONE (10:00)
[2024-06-27] MEDS ORDERED: FUROSEMIDE 10 MG/ML 4 ML VIAL ONE ×2 (10:00→20:04)
[2024-06-27] MEDS ORDERED: APIXABAN 5 MG TAB ONE ×2 (10:01→20:04)
[2024-06-27] MEDS ORDERED: MELOXICAM 7.5 MG TAB ONE (10:01)
[2024-06-27] MEDS ORDERED: DAPAGLIFLOZIN PROPANEDIOL 10 MG TABLET ONE (10:01)
[2024-06-27] MEDS ORDERED: AZITHROMYCIN 500 MG TAB ONE (10:01)
[2024-06-27] MEDS ORDERED: INSULIN ASPART (NovoLOG) 100 UNIT/ML VIAL SQ ONE ×3 (12:05→20:05)
[2024-06-27] MEDS ORDERED: MONTELUKAST 10 MG TAB ONE (20:04)
[2024-06-28] MEDS ORDERED: methylPREDNISolone SOD SUCCI 125 MG/2 ML VIAL ONE ×5 (00:15→22:25)
[2024-06-28] MEDS ORDERED: PIPERACILLIN-TAZOBACTAM 3.375 GM VIAL ONE ×3 (06:15→22:26)
[2024-06-28] MEDS ORDERED: INSULIN ASPART (NovoLOG) 100 UNIT/ML VIAL SQ ONE ×4 (06:15→22:26)
[2024-06-28] MEDS ORDERED: LORATADINE 10 MG TAB ONE (08:58)
[2024-06-28] MEDS ORDERED: guaiFENesin 600 MG TABLET.ER PO ONE ×3 (08:58→22:26)
[2024-06-28] MEDS ORDERED: MELOXICAM 7.5 MG TAB ONE (08:58)
[2024-06-28] MEDS ORDERED: PANTOPRAZOLE 40 MG TABLET PO ONE (08:58)
[2024-06-28] MEDS ORDERED: FUROSEMIDE 10 MG/ML 4 ML VIAL ONE ×2 (08:58→22:27)
[2024-06-28] MEDS ORDERED: DAPAGLIFLOZIN PROPANEDIOL 10 MG TABLET ONE (08:58)
[2024-06-28] MEDS ORDERED: AZITHROMYCIN 500 MG TAB ONE (08:59)
[2024-06-28] MEDS ORDERED: APIXABAN 5 MG TAB ONE ×2 (08:59→22:25)
[2024-06-28] MEDS ORDERED: HYDROcodone/APAP 7.5-325MG 1 EACH TAB ONE (12:43)
[2024-06-28] MEDS ORDERED: hydrALAZINE HCL 50 MG TAB ONE (12:46)
[2024-06-28] MEDS ORDERED: MONTELUKAST 10 MG TAB ONE (22:24)
[2024-06-29] MEDS ORDERED: HYDROcodone/APAP 5-325MG 1 EACH TAB ONE (04:37)
[2024-06-29] MEDS ORDERED: methylPREDNISolone SOD SUCCI 40 MG/ML 1 ML VIAL ONE ×3 (06:12→20:18)
[2024-06-29] MEDS ORDERED: PIPERACILLIN-TAZOBACTAM 3.375 GM VIAL ONE (06:12)
[2024-06-29] MEDS ORDERED: INSULIN ASPART (NovoLOG) 100 UNIT/ML VIAL SQ ONE ×3 (06:12→20:19)
[2024-06-29] MEDS ORDERED: PANTOPRAZOLE 40 MG TABLET PO ONE (08:42)
[2024-06-29] MEDS ORDERED: FUROSEMIDE 10 MG/ML 4 ML VIAL ONE ×2 (08:42→20:19)
[2024-06-29] MEDS ORDERED: guaiFENesin 600 MG TABLET.ER PO ONE ×2 (08:42→20:18)
[2024-06-29] MEDS ORDERED: LORATADINE 10 MG TAB ONE (08:42)
[2024-06-29] MEDS ORDERED: APIXABAN 5 MG TAB ONE ×2 (08:43→20:19)
[2024-06-29] MEDS ORDERED: AZITHROMYCIN 500 MG TAB ONE (08:43)
[2024-06-29] MEDS ORDERED: DAPAGLIFLOZIN PROPANEDIOL 10 MG TABLET ONE (08:43)
[2024-06-29] MEDS ORDERED: MELOXICAM 7.5 MG TAB ONE (08:43)
[2024-06-29] MEDS ORDERED: NIFEdipine XL 30 MG TAB.ER.24 PO ONE (12:54)
[2024-06-29] MEDS ORDERED: hydrALAZINE HCL 50 MG TAB ONE (13:02)
[2024-06-29] MEDS ORDERED: HYDROcodone/APAP 7.5-325MG 1 EACH TAB ONE (13:05)
[2024-06-29] MEDS ORDERED: MONTELUKAST 10 MG TAB ONE (20:18)
[2024-06-29] MEDS ORDERED: ACETAMINOPHEN TAB 325 MG TAB ONE (20:18)
[2024-06-29] MEDS ORDERED: CEFDINIR 300 MG CAP ONE (20:22)
[2024-06-29] MEDS ORDERED: FORMOTEROL FUMARATE 20 MCG/2 ML NEBU INHALATION ONE (21:15)
[2024-06-29] MEDS ORDERED: IPRATROPIUM-ALBUTEROL 3 ML NEB ONE (21:15)
[2024-06-29] MEDS ORDERED: BUDESONIDE 1 MG/2 ML NEBU INHALATION ONE (21:15)
[2024-06-30] MEDS ORDERED: KETOROLAC 15 MG/ML 1 ML VIAL ONE (04:10)
[2024-06-30] MEDS ORDERED: MONTELUKAST 10 MG TAB ONE ×2 (10:19→20:18)
[2024-06-30] MEDS ORDERED: PANTOPRAZOLE 40 MG TABLET PO ONE (10:19)
[2024-06-30] MEDS ORDERED: methylPREDNISolone SOD SUCCI 40 MG/ML 1 ML VIAL ONE (10:20)
[2024-06-30] MEDS ORDERED: DAPAGLIFLOZIN PROPANEDIOL 10 MG TABLET ONE (10:20)
[2024-06-30] MEDS ORDERED: FUROSEMIDE 10 MG/ML 4 ML VIAL ONE (10:20)
[2024-06-30] MEDS ORDERED: LORATADINE 10 MG TAB ONE (10:20)
[2024-06-30] MEDS ORDERED: MELOXICAM 7.5 MG TAB ONE (10:20)
[2024-06-30] MEDS ORDERED: guaiFENesin 600 MG TABLET.ER PO ONE ×2 (10:20→20:18)
[2024-06-30] MEDS ORDERED: APIXABAN 5 MG TAB ONE ×2 (10:20→20:18)
[2024-06-30] MEDS ORDERED: predniSONE 20 MG TAB ONE (15:56)
[2024-06-30] MEDS ORDERED: ACETAMINOPHEN TAB 325 MG TAB ONE (16:01)
[2024-06-30] MEDS ORDERED: IPRATROPIUM-ALBUTEROL 3 ML NEB ONE (19:57)
[2024-06-30] MEDS ORDERED: FUROSEMIDE 40 MG TAB ONE (20:18)
[2024-06-30] MEDS ORDERED: INSULIN ASPART (NovoLOG) 100 UNIT/ML VIAL SQ ONE (20:19)
[2024-07-01] MEDS ORDERED: ACETAMINOPHEN TAB 325 MG TAB ONE (00:46)
[2024-07-01] MEDS ORDERED: MORPHINE SULFATE 4 MG/ML SYRINGE ONE ×2 (05:22→09:13)
[2024-07-01] MEDS ORDERED: methylPREDNISolone SOD SUCCI 40 MG/ML 1 ML VIAL ONE (06:15)
[2024-07-01] MEDS ORDERED: DOCUSATE 100 MG CAP ONE (06:20)
[2024-07-01] MEDS ORDERED: FORMOTEROL FUMARATE 20 MCG/2 ML NEBU INHALATION ONE (08:11)
[2024-07-01] MEDS ORDERED: IPRATROPIUM-ALBUTEROL 3 ML NEB ONE (08:11)
[2024-07-01] MEDS ORDERED: MONTELUKAST 10 MG TAB ONE (09:13)
[2024-07-01] MEDS ORDERED: PANTOPRAZOLE 40 MG TABLET PO ONE (09:13)
[2024-07-01] MEDS ORDERED: MELOXICAM 7.5 MG TAB ONE (09:14)
[2024-07-01] MEDS ORDERED: predniSONE 20 MG TAB ONE (09:14)
[2024-07-01] MEDS ORDERED: guaiFENesin 600 MG TABLET.ER PO ONE (09:14)
[2024-07-01] MEDS ORDERED: APIXABAN 5 MG TAB ONE (09:14)
[2024-07-01] MEDS ORDERED: FUROSEMIDE 40 MG TAB ONE (09:14)
[2024-07-01] MEDS ORDERED: DAPAGLIFLOZIN PROPANEDIOL 10 MG TABLET ONE (09:14)
[2024-07-01] MEDS ORDERED: DEXTROSE 50% SYRINGE 50 ML IVP PRN (13:57)
[2024-07-01] MEDS ORDERED: NYSTATIN 100,000 UNIT/GM POWD 15 GM TOPICAL ONE (23:59)
[2024-07-01] MEDS ORDERED: BACITRACIN ZINC 500 UNIT/GM OINT 28.4 GM TUBE TOPICAL ONE (23:59)
[2024-07-02] MEDS ORDERED: ONDANSETRON 4 MG/2 ML VIAL IVP PRN
[2024-07-02] MEDS ORDERED: guaiFENesin-Coden 100-10MG/5ML 10 ML CUP PO PRN
[2024-07-02] MEDS ORDERED: DEXTROSE 50% SYRINGE 50 ML IVP PRN
[2024-07-02] MEDS ORDERED: IBUPROFEN 400 MG TAB PO PRN
[2024-07-02] MEDS ORDERED: ACETAMINOPHEN TAB 325 MG TAB PO PRN
[2024-07-02] MEDS ORDERED: MELATONIN 3 MG TABLET PO PRN
[2024-07-02] MEDS ORDERED: NALOXONE 0.4 MG/ML 1 ML VIAL IVP PRN
[2024-07-02] MEDS ORDERED: BENZONATATE 100 MG CAP PO PRN
[2024-07-02] MEDS ORDERED: MORPHINE SULFATE 4 MG/ML SYRINGE IVP PRN
[2024-07-02] MEDS ORDERED: oxyCODONE-APAP 5-325MG 1 EACH TAB PO PRN
[2024-07-02] MEDS: guaiFENesin 600 MG TABLET.ER PO SCH (03:06)
[2024-07-02] MEDS: acetaZOLAMIDE 250 MG TAB PO SCH (03:06)
[2024-07-02] MEDS: SODIUM CHLORIDE 0.9% 1,000 ML IV SCH (03:07)
[2024-07-02] MEDS: PANTOPRAZOLE 40 MG TABLET PO SCH (06:28)
[2024-07-02] MEDS: INSULIN ASPART (NovoLOG) 100 UNIT/ML VIAL SQ SCH (06:28)
[2024-07-02] MEDS ORDERED: FORMOTEROL FUMARATE 20 MCG/2 ML NEBU INHALATION SCH (08:00)
[2024-07-02] MEDS: IPRATROPIUM-ALBUTEROL 3 ML NEB INHALATION SCH (08:55)
[2024-07-02] MEDS: SYMBICORT 160-4.5 MCG INHALER INHALATION SCH (08:55)
[2024-07-02] MEDS: predniSONE 20 MG TAB PO SCH (10:26)
[2024-07-02] MEDS: INSULIN DETEMIR (LEVEMIR) 100 UNIT/ML SYR SQ SCH (10:26)
[2024-07-02] MEDS: FUROSEMIDE 40 MG TAB PO SCH (10:26)
[2024-07-02] MEDS: CEFDINIR 300 MG CAP PO SCH (10:26)
[2024-07-02] MEDS: MELOXICAM 7.5 MG TAB PO SCH (10:27)
[2024-07-02] MEDS: APIXABAN 5 MG TAB PO SCH (10:27)
[2024-07-02] MEDS: DAPAGLIFLOZIN PROPANEDIOL 10 MG TABLET PO SCH (10:27)
[2024-07-02] MEDS: NYSTATIN 100,000 UNIT/GM POWD 15 GM TOPICAL SCH (10:29)
[2024-07-02 11:38] LABS: Glucose,Whole Blood 164 mg/dL (70-110)
--- NOTE | 2024-07-02 12:55 | P.PN ---
Subjective Progress Note Date: 07/02/24 Principal diagnosis: Acute exacerbation of COPD and chronic cor pulmonale Patient was seen today on 07/02/2024 patient is doing well, basically about the same on 2 L nasal cannula, not in any distress, I have cleared the patient for discharge yesterday, apparently he is awaiting placement in ECF or rehab facility. No cough no wheezing he does have chronic shortness of breath and chronic cor pulmonale. Patient is afebrile, he is hemodynamically stable, O2 saturation is 96% on 4 L Objective - Vital Signs Vital signs: Vital Signs Temp 98.1 F 07/02/24 08:20 Pulse 68 07/02/24 12:08 Resp 16 07/02/24 08:20 BP 147/73 07/02/24 08:20 Pulse Ox 96 07/02/24 08:56 FiO2 40 07/02/24 00:20 Intake & Output 07/01/24 07/02/24 07/02/24 18:59 06:59 18:59 Intake Total 120 Output Total 900 Balance -780 Weight 191.8 kg 190.6 kg Intake: Oral 120 Output: Urine 900 Other: Voiding Method Indwelling Catheter # Bowel Movements 1 - Exam General: The patient is awake and alert, in no distress, and does not appear acutely ill. On 2 L nasal cannula Skin: Skin is warm and dry and no rashes or lesions are noted. Eye: Pupils are equal, round and reactive to light, extra-ocular movements are intact; there is normal conjunctiva bilaterally. Ears, nose, mouth and throat: There are moist mucous membranes and no oral lesions. Neck: The neck is supple, there is no tenderness or JVD. Cardiovascular: There is a regular rate and rhythm. No murmur, rub or gallop is appreciated. Respiratory: Diminished breath sound bilaterally no rhonchi no wheezes Gastrointestinal: Soft, non-distended, non-tender abdomen without masses or organomegaly noted. There is no rebound or guarding present. Bowel sounds are unremarkable. Back: There is no tenderness to palpation in the midline. There is no obvious deformity. Musculoskeletal: 1-2+ bipedal edema obese, Neurological: CN II-XII intact, Cranial nerves III through XII are intact. There are no obvious motor or sensory deficits. Coordination appears grossly intact. Speech is normal. Psychiatric: Cooperative, appropriate mood & affect, normal judgment. - Labs Labs: Abnormal Lab Results - Last 24 Hours (Table) 07/02/24 Range/Units 11:36 POC Glucose (mg/dL) 164 H (70-110) mg/dL Assessment and Plan Assessment: Impression: Acute exacerbation of COPD Acute on chronic hypoxic respiratory failure Chronic cor pulmonale Morbid obesity Chronic atrial fibrillation Recommendation: Continue present supportive care measures Continue diuretics and bronchodilators Continue oral steroids Cleared for discharge to ECF or rehab. Will follow as needed Time with Patient: Less than 30
--- NOTE | 2024-07-02 16:42 | P.PN ---
Progress Note - Text Progress Note Date: 07/02/24 pleasant 58 years old male ,Has a history of COPD, obstructive sleep apnea had a UPPP. Osteoarthritis in multiple joints especially the knees. chronically short of breath. Baseline uses crutches Presented with shortness of breath July 02: Resting in bed. Short of breath. 4 L nasal cannula. Occasional cough. Snell catheter. Spoke to the nurse to DC the same. Patient has a wound on the inner thighs on both the sides. Vascular Dr. Schwartz consulted. Yesterday patient could not be discharged to the F because of large bed not available Active Medications Acetaminophen (Acetaminophen Tab 325 Mg Tab) 650 mg PO Q4H PRN PRN Reason: MILD PAIN FEVER>100.5 Acetazolamide (Acetazolamide 250 Mg Tab) 250 mg PO BID [facility] Last Admin: 07/02/24 10:26 Dose: 250 mg Albuterol/Ipratropium (Ipratropium-Albuterol 3 Ml Neb) 3 ml INHALATION RT-QID [facility] Last Admin: 07/02/24 15:46 Dose: 3 ml Apixaban (Apixaban 5 Mg Tab) 5 mg PO BID [facility] Last Admin: 07/02/24 10:27 Dose: 5 mg Bacitracin (Bacitracin Oint 1 Each Packet) 1 each TOPICAL HS [facility] Benzonatate (Benzonatate 100 Mg Cap) 100 mg PO TID PRN PRN Reason: Cough Budesonide/Formoterol Fumarate (Symbicort 160-4.5 Mcg Inhaler) 2 puff INHALATION RT-BID [facility] Last Admin: 07/02/24 08:55 Dose: 2 puff Cefdinir (Cefdinir 300 Mg Cap) 300 mg PO BID [facility] Last Admin: 07/02/24 10:26 Dose: 300 mg Dapagliflozin (Dapagliflozin Propanediol 10 Mg Tablet) 10 mg PO DAILY [facility] Last Admin: 07/02/24 10:27 Dose: 10 mg Dextrose/Water (Dextrose 50% Syringe 50 Ml) 25 ml IVP PER PROTOCOL PRN; Protocol PRN Reason: Hypoglycemia Dextrose/Water (Dextrose 50% Syringe 50 Ml) 50 ml IVP PER PROTOCOL PRN; Protocol PRN Reason: Hypoglycemia Furosemide (Furosemide 40 Mg Tab) 40 mg PO DAILY [facility] Last Admin: 07/02/24 10:26 Dose: 40 mg Guaifenesin (Guaifenesin 600 Mg Tablet.Er) 600 mg PO QID [facility] Last Admin: 07/02/24 13:00 Dose: Not Given Guaifenesin/Codeine Phosphate (Guaifenesin-Coden 100-10mg/5ml 10 Ml Cup) 10 ml PO Q6H PRN PRN Reason: Cough Ibuprofen (Ibuprofen 400 Mg Tab) 400 mg PO Q6H PRN PRN Reason: Mild Pain (Scale 1 to 3) Insulin Aspart (Insulin Aspart (Novolog) 100 Unit/Ml Vial) 0 unit SQ ACHS [facility]; Protocol Last Admin: 07/02/24 12:42 Dose: 2 unit Insulin Detemir (Insulin Detemir (Levemir) 100 Unit/Ml Syr) 15 unit SQ DAILY [facility] Last Admin: 07/02/24 10:26 Dose: 15 unit Melatonin (Melatonin 3 Mg Tablet) 3 mg PO HS PRN PRN Reason: Insomnia Meloxicam (Meloxicam 7.5 Mg Tab) 7.5 mg PO DAILY [facility] Last Admin: 07/02/24 10:27 Dose: 7.5 mg Montelukast Sodium (Montelukast 10 Mg Tab) 10 mg PO HS [facility] Morphine Sulfate (Morphine Sulfate 4 Mg/Ml Syringe) 4 mg IVP Q4H PRN PRN Reason: SEVERE PAIN Naloxone HCl (Naloxone 0.4 Mg/Ml 1 Ml Vial) 0.2 mg IVP Q2M PRN PRN Reason: OPIOID REVERSAL Nystatin (Nystatin 100,000 Unit/Gm Powd 15 Gm) 1 applic TOPICAL BID [facility] Last Admin: 07/02/24 10:29 Dose: 1 applic Ondansetron HCl (Ondansetron 4 Mg/2 Ml Vial) 4 mg IVP Q8H PRN PRN Reason: NAUSEA/ VOMITING Oxycodone/Acetaminophen (Oxycodone-Apap 5-325mg 1 Each Tab) 1 each PO Q4H PRN PRN Reason: MODERATE PAIN Pantoprazole Sodium (Pantoprazole 40 Mg Tablet) 40 mg PO AC-BRKFST [facility] Last Admin: 07/02/24 06:28 Dose: Not Given Prednisone (Prednisone 20 Mg Tab) 40 mg PO DAILY [facility] Last Admin: 07/02/24 10:26 Dose: 40 mg Past medical history to include: COPD, osteoarthritis, obstructive sleep apnea with UPPP, dry skin Social history: Lives with brother. Smoked for about 14 years stopped in 2006. Currently not employed. Used to work at [employer]. Physical examination: VITAL SIGNS: 96 7, 88, 20, 134/68, 93% on 4 L GENERAL: Reclining in bed comfortable EYES: Pupils equal. Conjunctiva normal. HEENT: External appearance of nose and ears normal, oral cavity grossly normal. NECK: JVD unable to assess masses not palpable. HEART: Heart sounds muffled; edema present LUNGS: Respiratory rate normal, distant breath sounds. Some wheezing ABDOMEN: Soft, nontender, liver spleen not palpable, no masses palpable. PSYCH: Alert and oriented x3; mood and affect tired DERMATOLOGICAL: Kobe wrap both lower extremity. Wound on the inner side of both the thigh. Pictures in the chart. Intertriginous candidiasis l. INVESTIGATIONS, reviewed in the clinical context: Sodium 138 potassium 4.5 BUN 33, creatinine 0.5 Previous labs 2D echocardiogram: EF 55 to 60%. Severe concentric LVH. Severely increased septal wall thickness. Assessment and plan: - cor pulmonale: Acute on chronic with right-sided failure P.o. Lasix. Fluid restriction. -Acute hypoxic respiratory failure from CHF 3 L nasal cannula -Acute on chronic congestive heart failure exacerbation from diastolic dysfunction EF 55 to 60%: Fluid restrict 2000 cc a day Lasix 40 mg a day -Acute COPD exacerbation [no previous smoker] DuoNeb Symbicort -Metabolic alkalosis due to diuresis -Bilateral lower extremity xeroderma Topical care -Obesity hypoventilation syndrome/pickwickian syndrome -Obstructive sleep apnea with the patient-previously had UPPP Does not use CPAP because of panic attacks -Paroxysmal atrial fibrillation, currently in sinus rhythm . Add Lopressor 12.5 twice daily eliquis. -Hypertensive heart disease with severe LVH Lopressor -Essential hypertension Lopressor -Intertriginous candidiasis Topical nystatin powder -Bilateral inner thigh wound Vascular surgery Dr. Schwartz consulted -Bilateral knee arthralgia Tylenol when necessary -Morbid obesity BMI 63.1 Weight loss measures -Chronic lower extremity venous insufficiency with skin changes -Full code Discussed with patient. Vascular surgery consulted. Add Lopressor 12.5 twice daily. Past Medical History Past Medical History: Atrial Fibrillation, Asthma, COPD, GERD/Reflux, Osteoarthritis (OA), Pneumonia, Sleep Apnea/CPAP/BIPAP Additional Past Medical History / Comment(s): JEANIE/unable to tolerate cpap, pneumonias, bronchitis, chronic lower extremity lymphedema/redness/scabs, arthritis in multiple joints/chronic pain/chronic back pain History of Any Multi-Drug Resistant Organisms: None Reported Past Surgical History: Adenoidectomy, Appendectomy, Orthopedic Surgery, Tonsillectomy Additional Past Surgical History / Comment(s): Bilateral knee arthroscopy, UVPPP, carpal tunnel surgery, right shoulder surgery, colonoscopy/benign polypectomy. Past Anesthesia/Blood Transfusion Reactions: No Reported Reaction Past Psychological History: No Psychological Hx Reported Smoking Status: Former smoker Past Alcohol Use History: None Reported Past Drug Use History: None Reported
[2024-07-02 16:46] LABS: Glucose,Whole Blood 187 mg/dL (70-110)
[2024-07-02 17:45] VITALS: RESP 18
[2024-07-02 20:28] LABS: Glucose,Whole Blood 179 mg/dL (70-110)
[2024-07-02] MEDS ORDERED: IPRATROPIUM-ALBUTEROL 3 ML NEB ONE (20:45)
[2024-07-02] MEDS: MONTELUKAST 10 MG TAB PO SCH (21:49)
[2024-07-02] MEDS: METOPROLOL TARTRATE 12.5 MG TAB PO SCH (21:49)
[2024-07-02] MEDS: BACITRACIN OINT 1 EACH PACKET TOPICAL SCH (21:49)
[2024-07-02] MEDS: methylPREDNISolone SOD SUCCI 40 MG/ML 1 ML VIAL IVP SCH (23:18)
[2024-07-03 06:12] LABS: Glucose,Whole Blood 126 mg/dL (70-110)
[2024-07-03 08:15] LABS: African American GFR (CKD) >90 (>60 ml/min/1.73 sqM); Anion Gap 1 mmol/L; Blood Urea Nitrogen 23 mg/dL (9-20); Calcium 8.8 mg/dL (8.4-10.2); Carbon Dioxide 35 mmol/L (22-30); Chloride 102 mmol/L (98-107); Glucose 106 mg/dL (74-99); Non-African American GFR(CKD) >90 (>60 ml/min/1.73 sqM); Potassium 4.1 mmol/L (3.5-5.1); Sodium 138 mmol/L (137-145)
[2024-07-03 10:57] VITALS: TEMP 98.4
[2024-07-03 11:34] LABS: Glucose,Whole Blood 184 mg/dL (70-110)
[2024-07-03] MEDS: PANTOPRAZOLE 40 MG TABLET PO ONE (11:53)
[2024-07-03] MEDS: METOPROLOL TARTRATE 12.5 MG TAB ONE ×2 (11:53→11:54)
--- NOTE | 2024-07-03 12:58 | P.PN ---
Subjective Progress Note Date: 07/03/24 Principal diagnosis: Respiratory failure. Acute exacerbation of COPD and chronic cor pulmonale Patient was seen today on 07/02/2024 patient is doing well, basically about the same on 2 L nasal cannula, not in any distress, I have cleared the patient for discharge yesterday, apparently he is awaiting placement in ECF or rehab facility. No cough no wheezing he does have chronic shortness of breath and chronic cor pulmonale. Patient is afebrile, he is hemodynamically stable, O2 saturation is 96% on 4 L Progress note dated July 03, 2024. 58-year-old male seen today in room 363. The patient is currently on 2 L of oxygen. His BiPAP settings are 10/5, and 40%. The patient is clinically doing about the same. Patient was seen by our group yesterday, and apparently was cleared for discharge. He is apparently awaiting placement in a extended care facility. Current labs include a sodium 138, potassium 4.1, chlorides 102, CO2 35, BUN 23, creatinine 0.81. Glucose was 184. Calcium was 8.8. Objective - Vital Signs Vital signs: Vital Signs Temp 98.4 F 07/03/24 09:25 Pulse 81 07/03/24 11:59 Resp 18 07/03/24 11:59 BP 101/53 07/03/24 09:25 Pulse Ox 94 L 07/03/24 09:37 FiO2 40 07/02/24 21:00 Intake & Output 07/02/24 07/03/24 07/03/24 18:59 06:59 18:59 Intake Total 480 Output Total 2700 2150 Balance -222 -215 Weight 187.5 kg Intake: Oral 480 Output: Urine 2700 2150 Other: Voiding Method Indwelling Catheter External Catheter External Catheter # Bowel Movements 1 - Exam No acute distress, oriented 3. Currently on 2 L of oxygen. HEENT examination is grossly unremarkable. Mucous membranes are moist. No oral lesions. Neck supple. Full range of motion. No adenopathy thyromegaly or neck vein distention. Cardiovascular examination reveals regular rhythm rate. S1-S2 normal. No S3 or S4. No discernible murmur noted. Sounds are distant. Heart rate 81 bpm. Lungs reveal bilateral breath sounds. No wheezes, rhonchi, or crackles. Saturations are in the mid 90s. Abdomen soft bowel sounds are heard. No masses or tenderness. Extremities are intact. No cyanosis or clubbing. Edema is noted. The lower extremities are wrapped. Skin is without rash or lesion. Neurologic examination is brief but nonfocal. - Labs CBC & Chem 7: 07/03/24 07:01 Labs: Abnormal Lab Results - Last 24 Hours (Table) 07/02/24 07/02/24 07/03/24 Range/Units 16:44 20:26 06:10 Carbon Dioxide (22-30) mmol/L BUN (9-20) mg/dL Glucose (74-99) mg/dL POC Glucose (mg/dL) 187 H 179 H 126 H (70-110) mg/dL 07/03/24 07/03/24 Range/Units 07:01 11:32 Carbon Dioxide 35 H (22-30) mmol/L BUN 23 H (9-20) mg/dL Glucose 106 H (74-99) mg/dL POC Glucose (mg/dL) 184 H (70-110) mg/dL Assessment and Plan Assessment: Acute exacerbation of chronic obstructive pulmonary disease, improved. Acute on chronic hypoxemic respiratory failure. Chronic cor pulmonale. Morbid obesity. Chronic atrial fibrillation. Lower extremity cellulitis/wounds. Plan: Plan dated July 03, 2024. We will continue with supportive care. The patient continues on diuretics, and bronchodilators. The patient continues on oral steroids. Labs, x-rays, and all medications are reviewed. We will continue to follow the patient, and make recommendations along the way. Prognosis is certainly guarded. Time with Patient: Less than 30
--- NOTE | 2024-07-03 14:39 | P.DS ---
Providers Date of admission: 06/25/24 10:15 Expected date of discharge: 07/03/24 Attending physician: Kiran Quiroz Consults: 06/25/24 16:27 Consult Physician Routine Consulting Provider: Charisma Ragland Consult Reason/Comments: SOB Do you want consulting provider notified?: Already Contacted Placement Type Exists?: Yes 06/25/24 16:28 Consult Physician Routine Consulting Provider: Rajinder Alexis Consult Reason/Comments: CHF Do you want consulting provider notified?: Already Contacted Placement Type Exists?: Yes 07/02/24 16:03 Consult Physician Routine Consulting Provider: Sandeep Schwartz Consult Reason/Comments: pressure ulcers bilateral thighs Do you want consulting provider notified?: Yes Primary care physician: Physician Nonstaff Hospital Course: pleasant 58 years old male ,Has a history of COPD, obstructive sleep apnea had a UPPP. Osteoarthritis in multiple joints especially the knees. chronically short of breath. Baseline uses crutches Presented with shortness of breath July 02: Resting in bed. Short of breath. 4 L nasal cannula. Occasional cough. Snell catheter. Spoke to the nurse to DC the same. Patient has a wound on the inner thighs on both the sides. Vascular Dr. Schwartz consulted. Yesterday patient could not be discharged to the [facility] because of large bed not available July 03: On nasal cannula about 3 L. Eating well. Has been accepted at rehab. Discussed with patient, nurse, social security assessor. Antibiotic will be discontinued. Prednisone taper. Fluid restriction to continue. For wounds to continue with Dr. Schwartz in the wound care center. Follow-up with cardiology outpatient pulmonary. Patient has no allergy to Lopressor. Has been tolerating it well. Discussion and discharge planning more than 35 minutes Past medical history to include: COPD, osteoarthritis, obstructive sleep apnea with UPPP, dry skin Social history: Lives with brother. Smoked for about 14 years stopped in 2006. Currently not employed. Used to work at [employer]. Physical examination: VITAL SIGNS: 98.4, 76, 18, 101/53, 95% on 4 L GENERAL: Reclining in bed comfortable EYES: Pupils equal. Conjunctiva normal. HEENT: External appearance of nose and ears normal, oral cavity grossly normal. NECK: JVD unable to assess masses not palpable. HEART: Heart sounds muffled; edema present LUNGS: Respiratory rate increased, distant breath sounds. Some wheezing ABDOMEN: Soft, nontender, liver spleen not palpable, no masses palpable. PSYCH: Alert and oriented x3; mood and affect normal DERMATOLOGICAL: Kobe wrap both lower extremity. Wound on the inner side of both the thigh. Pictures in the chart. Intertriginous candidiasis INVESTIGATIONS, reviewed in the clinical context: July 03: Potassium 4.1 BUN 23 creatinine 0.81 bicarb 35 Sodium 138 potassium 4.5 BUN 33, creatinine 0.5 Previous labs 2D echocardiogram: EF 55 to 60%. Severe concentric LVH. Severely increased septal wall thickness. Assessment and plan: - cor pulmonale: Acute on chronic with right-sided failure P.o. Lasix. Fluid restriction. -Acute hypoxic respiratory failure from CHF 3 L nasal cannula -Acute on chronic congestive heart failure exacerbation from diastolic dysfunction EF 55 to 60%: Fluid restrict 2000 cc a day Lasix 40 mg twice daily. Aldactone -Acute COPD exacerbation [no previous smoker] Incruse Ellipta. Advair -Metabolic alkalosis due to diuresis Diamox for 7 more days -Bilateral lower extremity xeroderma Topical care -Obesity hypoventilation syndrome/pickwickian syndrome -Obstructive sleep apnea with the patient-previously had UPPP Does not use CPAP because of panic attacks -Paroxysmal atrial fibrillation, currently in sinus rhythm . Add Lopressor 12.5 twice daily eliquis. -Hypertensive heart disease with severe LVH Lopressor -Essential hypertension Lopressor -Intertriginous candidiasis Topical nystatin powder -Bilateral inner thigh wound Vascular surgery Dr. Schwartz, will follow at wound care center. Local wound care per him -Bilateral knee arthralgia Tylenol when necessary -Morbid obesity BMI 63.1 Weight loss measures -Chronic lower extremity venous insufficiency with skin changes -Full code Disposition: Rehab at [facility] Past Medical History Past Medical History: Atrial Fibrillation, Asthma, COPD, GERD/Reflux, Osteoarthritis (OA), Pneumonia, Sleep Apnea/CPAP/BIPAP Additional Past Medical History / Comment(s): JEANIE/unable to tolerate cpap, pneumonias, bronchitis, chronic lower extremity lymphedema/redness/scabs, arthritis in multiple joints/chronic pain/chronic back pain History of Any Multi-Drug Resistant Organisms: None Reported Past Surgical History: Adenoidectomy, Appendectomy, Orthopedic Surgery, Tonsillectomy Additional Past Surgical History / Comment(s): Bilateral knee arthroscopy, UVPPP, carpal tunnel surgery, right shoulder surgery, colonoscopy/benign polypectomy. Past Anesthesia/Blood Transfusion Reactions: No Reported Reaction Past Psychological History: No Psychological Hx Reported Smoking Status: Former smoker Past Alcohol Use History: None Reported Past Drug Use History: None Reported Plan - Discharge Summary New Discharge Prescriptions: New predniSONE [Deltasone] See Taper PO DAILY tab Ipratropium-Albuterol Nebulize [Duoneb 0.5 mg-3 mg/3 ml Soln] 3 ml INHALATION TID #1 each Melatonin 3 mg PO HS PRN tab PRN Reason: Insomnia Benzonatate [Tessalon Perles] 100 mg PO TID PRN cap PRN Reason: Cough acetaZOLAMIDE [Diamox] 250 mg PO BID #10 tab Metoprolol Tartrate [Lopressor] 12.5 mg PO BID tab guaiFENesin [Mucinex] 600 mg PO QID tab INSULIN ASPART (NovoLOG) [NovoLOG (formulary)] 0 unit SQ ACHS each Montelukast [Singulair] 10 mg PO HS tab Continue Spironolactone [Aldactone] 25 mg PO DAILY Umeclidinium [place] [Incruse Ellipta] 1 puff INHALATION RT-DAILY Pantoprazole [Protonix] 40 mg PO AC-BRKFST #30 tab SILVER sulfADIAZINE CREAM [Silvadene Cream] 1 applic TOPICAL BID each Meloxicam 7.5 mg PO DAILY Apixaban [Eliquis] 5 mg PO BID Albuterol Inhaler [Ventolin Hfa Inhaler] 1 - 2 puff INHALATION RT-Q6H PRN PRN Reason: Shortness Of Breath Or Wheezing Fluticasone Propion/Salmeterol [Advair Hfa 230-21 Mcg Inhaler] 2 puff INHALATION RT-BID Nitroglycerin Sl Tabs [Nitrostat] 0.4 mg SUBLINGUAL Q5M PRN #20 tab PRN Reason: Chest Pain Dapagliflozin Propanediol [Farxiga] 10 mg PO DAILY #30 tab Clotrimazole Cream [Lotrimin Cream] 1 applic TOPICAL BID #1 each Tamsulosin [Flomax] 0.4 mg PO PC-SUPPER cap Acetaminophen Tab [Tylenol] 500 mg PO Q6HR PRN tab PRN Reason: Fever And/ Or Pain Nystatin 100,000 Unit/gm Powd [Mycostatin Powder] 1 applic TOPICAL BID #0 Changed Furosemide [Lasix] 40 mg PO BID #0 Psyllium Husk 100% [Metamucil Packet] 6 gm PO BID #0 packet Discontinued Budesonide/Formoterol Fumarate [Breyna 160-4.5 Mcg Inhaler] 1 puff INHALATION RT-DAILY Metoprolol Succinate (ER) [Toprol XL] 50 mg PO DAILY #30 tab Discharge Medication List Spironolactone [Aldactone] 25 mg PO DAILY 12/25/20 [History] Meloxicam 7.5 mg PO DAILY 08/05/21 [History] Umeclidinium [place] [Incruse Ellipta] 1 puff INHALATION RT-DAILY 12/18/23 [History] Albuterol Inhaler [Ventolin Hfa Inhaler] 1 - 2 puff INHALATION RT-Q6H PRN 02/06/24 [History] Apixaban [Eliquis] 5 mg PO BID 02/06/24 [History] Fluticasone Propion/Salmeterol [Advair Hfa 230-21 Mcg Inhaler] 2 puff INHALATION RT-BID 02/06/24 [History] Nitroglycerin Sl Tabs [Nitrostat] 0.4 mg SUBLINGUAL Q5M PRN #20 tab 02/25/24 [Rx] Clotrimazole Cream [Lotrimin Cream] 1 applic TOPICAL BID #1 each 04/01/24 [Rx] Dapagliflozin Propanediol [Farxiga] 10 mg PO DAILY #30 tab 04/01/24 [Rx] Pantoprazole [Protonix] 40 mg PO AC-BRKFST #30 tab 04/01/24 [Rx] SILVER sulfADIAZINE CREAM [Silvadene Cream] 1 applic TOPICAL BID each 04/01/24 [Rx] Acetaminophen Tab [Tylenol] 500 mg PO Q6HR PRN tab 04/28/24 [Rx] Nystatin 100,000 Unit/gm Powd [Mycostatin Powder] 1 applic TOPICAL BID #0 04/28/24 [Rx] Tamsulosin [Flomax] 0.4 mg PO PC-SUPPER cap 04/28/24 [Rx] Benzonatate [Tessalon Perles] 100 mg PO TID PRN cap 07/03/24 [Rx] Furosemide [Lasix] 40 mg PO BID #0 07/03/24 [Rx] INSULIN ASPART (NovoLOG) [NovoLOG (formulary)] 0 unit SQ ACHS each 07/03/24 [Rx] Ipratropium-Albuterol Nebulize [Duoneb 0.5 mg-3 mg/3 ml Soln] 3 ml INHALATION TID #1 each 07/03/24 [Rx] Melatonin 3 mg PO HS PRN tab 07/03/24 [Rx] Metoprolol Tartrate [Lopressor] 12.5 mg PO BID tab 07/03/24 [Rx] Montelukast [Singulair] 10 mg PO HS tab 07/03/24 [Rx] Psyllium Husk 100% [Metamucil Packet] 6 gm PO BID #0 packet 07/03/24 [Rx] acetaZOLAMIDE [Diamox] 250 mg PO BID #10 tab 07/03/24 [Rx] guaiFENesin [Mucinex] 600 mg PO QID tab 07/03/24 [Rx] predniSONE [Deltasone] See Taper PO DAILY tab 07/03/24 [Rx] Follow up Appointment(s)/Referral(s): Marilou Meeks MD [STAFF PHYSICIAN] - 2 Weeks Alfredo Hope DO [STAFF PHYSICIAN] - 1-2 Days Tim Chahal MD [STAFF PHYSICIAN] - 2 Weeks Sandeep Schwartz MD [STAFF PHYSICIAN] - 1 Week (Wound care center) Activity/Diet/Wound Care/Special Instructions: Strict fluid restriction 2000 cc a day Wound care to continue as per Dr. Schwartz Follow-up at wound care center 1 week
[2024-07-03 15:15] VITALS: BMI 61.0
[2024-07-03 16:19] LABS: Glucose,Whole Blood 151 mg/dL (70-110)
[2024-07-03 17:29] VITALS: BP 115/57; PULSE 80
--- NOTE | 2024-07-17 15:53 | CT ---
Patient Alfredo Rosas ID [id number] Order # CTA CHEST EXAMINATION TYPE: CT angio chest DATE OF EXAM: 06/25/2024 INDICATION: Asthma CT DLP: 1322.2 mGycm, Automated exposure control for dose reduction was used. CONTRAST: Patient injected with 100 mL of Isovue 300. COMPARISON: No comparison available on downtime PACS. TECHNIQUE: CT of the chest is performed on a spiral scan at 2 mm thick sections. Study is performed with intravenous contrast timed for evaluation for pulmonary embolism. This will limit additional po rtions of the evaluation. 3-D MIP images reconstructed by the technologist are reviewed on the compu ter in the coronal and sagittal planes. FINDINGS: No persistent filling defects are evident to suggest an acute pulmonary embolism. No mediastinal or hilar adenopathy enlarged by CT criteria is evident. The ascending aorta diameter at the level of the main pulmonary artery is 3.3 cm. The main pulmonary artery diameter at the bifurcation is 3.2 cm. Minimal compressive atelectasis at the left lung base. Limited CT sections were through the upper abdomen. There is thickening of the right adrenal gland m easuring 2.8 cm. Consider follow-up. IMPRESSION: 1. No acute pulmonary embolism. 2. Minimal compressive atelectasis in dependent lung bases. 3. Enlarged right adrenal gland measurin g 2.8 cm consider follow-up
--- NOTE | 2024-07-25 16:12 | XR ---
Patient Alfredo Rosas ID [id number] Order # EXAMINATION TYPE: XR chest 2V DATE OF EXAM: 06/25/2024 COMPARISON: No comparison available on downtime PACS. INDICATION: Difficulty breathing TECHNIQUE: Frontal and lateral views of the chest are obtained. FINDINGS: The heart size is enlarged. The pulmonary vasculature is normal. The lungs are clear. Hyperinflation and flattening the diaphragms is present. IMPRESSION: 1. No acute pulmonary process. Correlate for COPD. 2. Cardiomegaly
--- NOTE | 2024-08-03 14:47 | PN ---
PROGRESS NOTE SUBJECTIVE: This is a 58-year-old gentleman. The patient has history of shortness of breath, fever, and obesity. The patient has been admitted under Internal Medicine. The patient is on IV antibiotic and consulted. The patient had superficial ulcers in bilateral inner aspects of the thigh. No fever or chills present. MEDICAL HISTORY: No history of diabetes, hypertension, coronary artery disease. The patient has past history of atrial fibrillation. OBJECTIVE: GENERAL: On examination, the patient was seen in his room. NECK: Supple. No bruit appreciated. CHEST: Clear. Good air entry in both lungs. First and second sounds present. ABDOMEN: Protuberant. No peritoneal sign noted. EXTREMITIES: Inner aspect of the thigh, there is superficial ulcer, no drainage noted. PLAN: The patient is on p.o. antibiotic. We placed Aquacel with silver on the inner aspect of both thighs, will follow with you. MMODL / IJN: [id number] /
== END 2024-07-03 16:55 | DRG 291 ==
LOC: 3SCARD 10:15
PROVIDERS: ADMIT Hospitalist; ATTEND Hospitalist
DX: I11.0 Hypertensive heart disease with heart failure (principal); I50.33 Acute on chronic diastolic (congestive) heart failure; J96.21 Acute and chronic respiratory failure with hypoxia; E87.3 Alkalosis; E66.2 Morbid (severe) obesity with alveolar hypoventilation; Z68.44 Body mass index [BMI] 60.0-69.9, adult; J44.1 Chronic obstructive pulmonary disease with (acute) exacerbation; L03.116 Cellulitis of left lower limb; L03.115 Cellulitis of right lower limb; K21.9 Gastro-esophageal reflux disease without esophagitis; F41.0 Panic disorder [episodic paroxysmal anxiety]; J20.9 Acute bronchitis, unspecified; I48.0 Paroxysmal atrial fibrillation; I27.81 Cor pulmonale (chronic); Z20.822 Contact with and (suspected) exposure to COVID-19; I87.2 Venous insufficiency (chronic) (peripheral); L89.899 Pressure ulcer of other site, unspecified stage; M15.9 Polyosteoarthritis, unspecified; Q80.9 Congenital ichthyosis, unspecified; T50.2X5A Adverse effect of carbonic-anhydrase inhibitors, benzothiadiazides and other diuretics, initial encounter; Z79.01 Long term (current) use of anticoagulants; Z79.51 Long term (current) use of inhaled steroids; Z79.899 Other long term (current) drug therapy; Z87.891 Personal history of nicotine dependence; Z88.0 Allergy status to penicillin; Z87.01 Personal history of pneumonia (recurrent)
CPT/HCPCS: 71046; 71275; 80048; 84145; 87040; 87449; 93005; 94640; 94660; 94760; 96361; 96374; 99285

== ENCOUNTER 2025-01-16 14:23 | Emergency (ER) | payer MEDICARE, OTHER ==
[2025-01-16 14:35] VITALS: TEMP 97.1
--- NOTE | 2025-01-16 15:25 | ED ---
Fall HPI - General Chief Complaint: Fall Stated Complaint: fall, chest pain Time Seen by Provider: 01/16/25 14:37 Source: EMS Mode of arrival: EMS - History of Present Illness Initial Comments: Dictation was produced using [employer] dictation software. please excuse any grammatical, word or spelling errors. Chief Complaint: 59-year-old obese male presents to the emergency department for slip and fall History of Present Illness: Patient is a 59-year-old obese male presents to the ER with total body pain after fall. States that he was using his walker when there was a slick spot on the floor causing his apparatus to slide. He fell forward tried to catch himself hurt his chest. Denies any arm pain leg pain back pain. States that he did not hit his head. Patient does report taking anticoagulation medications. States that his history of A-fib. The ROS documented in this emergency department record has been reviewed and confirmed by me. Those systems with pertinent positive or negative responses have been documented in the HPI. All other systems are other negative and/or noncontributory. - Related Data Home Medications Medication Instructions Recorded Confirmed Spironolactone [Aldactone] 25 mg PO DAILY 12/25/20 01/16/25 Umeclidinium [place] [Incruse 1 puff INHALATION RT-DAILY 12/18/23 01/16/25 Ellipta] Albuterol Inhaler [Ventolin Hfa 1 - 2 puff INHALATION RT-Q6H PRN 02/06/24 01/16/25 Inhaler] Apixaban [Eliquis] 5 mg PO BID 02/06/24 01/16/25 Fluticasone Propion/Salmeterol 2 puff INHALATION RT-BID 02/06/24 01/16/25 [Advair Hfa 230-21 Mcg Inhaler] Atorvastatin [Lipitor] 10 mg PO HS 01/16/25 01/16/25 Furosemide [Lasix] 80 mg PO BID 01/16/25 01/16/25 Ibuprofen [Motrin] 600 mg PO BID PRN 01/16/25 01/16/25 Metoprolol Succinate [Toprol XL] 50 mg PO DAILY 01/16/25 01/16/25 Pantoprazole [Protonix] 40 mg PO DAILY 01/16/25 01/16/25 Semaglutide [Ozempic] 2 mg SQ WEEKLY 01/16/25 01/16/25 Tamsulosin [Flomax] 0.4 mg PO HS 01/16/25 01/16/25 Allergies Allergy/AdvReac Type Severity Reaction Status Date / Time isosorbide [From Imdur] AdvReac headache & Verified 01/16/25 16:40 blurred vision Review of Systems ROS Statement: Those systems with pertinent positive or pertinent negative responses have been documented in the HPI. ROS Other: All systems not noted in ROS Statement are negative. Past Medical History Past Medical History: Atrial Fibrillation, Asthma, COPD, GERD/Reflux, Osteoarthritis (OA), Pneumonia, Sleep Apnea/CPAP/BIPAP Additional Past Medical History / Comment(s): JEANIE/unable to tolerate cpap, pneumonias, bronchitis, chronic lower extremity lymphedema/redness/scabs, arthritis in multiple joints/chronic pain/chronic back pain History of Any Multi-Drug Resistant Organisms: None Reported Past Surgical History: Adenoidectomy, Appendectomy, Orthopedic Surgery, Tonsillectomy Additional Past Surgical History / Comment(s): Bilateral knee arthroscopy, UVPPP, carpal tunnel surgery, right shoulder surgery, colonoscopy/benign polypectomy. Past Anesthesia/Blood Transfusion Reactions: No Reported Reaction Past Psychological History: No Psychological Hx Reported Smoking Status: Former smoker Past Alcohol Use History: None Reported Past Drug Use History: None Reported - Past Family History Father History Unknown: Yes Family Medical History: Cancer Additional Family Medical History / Comment(s): . Mother History Unknown: Yes Family Medical History: Deep Vein Thrombosis (DVT) General Exam - General Exam Comments Initial Comments: PHYSICAL EXAM: General Impression: Alert and oriented x3, not in acute distress HEENT: Normocephalic atraumatic, extra-ocular movements intact, pupils equal and reactive to light bilaterally, mucous membranes moist. Cardiovascular: Heart regular rate and rhythm Chest: Able to complete full sentences, no retractions, no tachypnea Abdomen: abdomen soft, non-tender, non-distended, no organomegaly Musculoskeletal: Pulses present and equal in all extremities, no peripheral edema Motor: no focal deficits noted Neurological: CN II-XII grossly intact, no focal motor or sensory deficits noted Skin: Intact with no visualized rashes Psych: Normal affect and mood Limitations: no limitations Course Vital Signs 01/16/25 01/16/25 14:28 17:24 Temperature 97.1 F L Pulse Rate 81 66 Respiratory 18 20 Rate Blood Pressure 96/54 114/56 O2 Sat by Pulse 91 L 92 L Oximetry - Reevaluation(s) Reevaluation #1: 01/16/25 18:25 I was notified by corrections identification technician that the patient was too large to fit into the CT machine and they are only able to do a CT brain. Medical Decision Making - Medical Decision Making My EKG interpretation: Ventricular rate 71, sinus rhythm, right bundle branch block,. 157, QRS 130, QTc 408. No MT prolongation, no QTC prolongation, no ST or T-wave changes noted. EKG compared to 2023 showing no changes. Overall, this EKG is unremarkable Was pt. sent in by a medical professional or institution (LORNA Torres, TOOL SHAPER SET UP OPERATOR, urgent care, hospital, or retirement...) When possible be specific @ -No Did you speak to anyone other than the patient for history (EMS, parent, family, police, friend...)? What history was obtained from this source @ -No Did you review nursing and triage notes (agree or disagree)? Why? @ -I reviewed and agree with nursing and triage notes Were old charts reviewed (outside hosp., previous admission, EMS record, old EKG, old radiological studies, urgent care reports/EKG's, retirement records)? Report findings @ -No old charts were reviewed Differential Diagnosis (chest pain, altered mental status, abdominal pain women, abdominal pain men, vaginal bleeding, musculoskeletal, weakness, fever, dyspnea, syncope, headache, dizziness, GI bleed, back pain, seizure, CVA, palpatations, mental health)? @ -Not applicable EKG interpreted by me (3pts min.). @ -None done X-rays interpreted by me (1pt min.). @ -X-ray of the chest is nonacute CT interpreted by me (1pt min.). @ -C-spine shows no acute processes. U/S interpreted by me (1pt. min.). @ -None done What testing was considered but not performed or refused? (CT, X-rays, U/S, labs)? Why? @ -None What meds were considered but not given or refused? Why? @ -None Was smoking cessation discussed for >3mins.? @ -No Were there social determinants of health that impacted care today? How? (Home lessness, low income, unemployed, alcoholism, drug addiction, transportation, low edu. Level, literacy, decrease access to med. care, senior living, rehab)? @ -No Was there de-escalation of care discussed even if they declined (Discuss DNR or withdrawal of care, Hospice)? DNR status @ -No What co-morbidities impacted this encounter? (DM, HTN, Smoking, COPD, CAD, Cancer, CVA, ARF, Chemo, Hep., AIDS, mental health diagnosis, sleep apnea, morbid obesity)? @ -None Was patient admitted / discharged? Hospital course, mention meds given and route, prescriptions, significant lab abnormalities, going to OR and other pertinent info. @ -59-year-old male presents emergency department after mechanical fall. Vital signs stable. EKG is unremarkable. Physical examination is unremarkable. Patient had some bedbugs on him requiring decontamination. Patient was too big to fit into the CT scanner for CT chest. CT scan of the head and C-spine is unremarkable. Chest x-ray is nonacute. Patient observed emergency departments well-appearing. Physical examination is benign on reevaluation of 7:15 PM. Clinically no concern for significant traumatic chest injury. Patient discharged Did you discuss the management of the patient with other professionals (professionals i.e. , PA, TOOL SHAPER SET UP OPERATOR, lab, RT, psych nurse, neonatal social worker, elementary school art teacher, teacher, public information officer, caser in)? Give summary @ -No Was critical care preformed (if so, how long)? @ -No Undiagnosed new problem with uncertain prognosis? @ -No Drug Therapy requiring intensive monitoring for toxicity (Heparin, Nitro, Insulin, Cardizem)? @ -No Were any procedures done? @ -No Diagnosis/symptom? Acute, or Chronic, or Acute on Chronic? Uncomplicated (without systemic symptoms) or Complicated (systemic symptoms)? @ -Chest contusion Side effects of treatment? @ -No Exacerbation, Progression, or Severe Exacerbation? @ -No Poses a threat to life or bodily function? How? (Chest pain, USA, VT, pneumonia, PE, COPD, DKA, ARF, appy, cholecystitis, CVA, Diverticulitis, Homicidal, Suicidal, threat to staff... and all critical care pts) @ -No Disposition Clinical Impression: Fall Disposition: HOME SELF-CARE Condition: Good Instructions (If sedation given, give patient instructions): Fall Prevention for Older Adults (ED) Is patient prescribed a controlled substance at d/c from ED?: No Referrals: Nonstaff,Physician [REFERRING] - 1-2 days Time of Disposition: 19:14
--- NOTE | 2025-01-16 18:53 | XR ---
EXAMINATION TYPE: XR chest 2V DATE OF EXAM: 01/16/2025 6:40 PM COMPARISON: Chest radiographs from 06/25/2024 CLINICAL INDICATION: Male, 59 years old with history of fall; [facility] TECHNIQUE: XR chest 2V Frontal and lateral views of the chest. FINDINGS: Lungs/Pleura: There is no evidence of pleural effusion, focal consolidation, or pneumothorax. Pulmonary vascularity: Unremarkable. Heart/mediastinum: Cardiomediastinal silhouette is prominent in size. Musculoskeletal: Degenerative changes of the shoulder joints. IMPRESSION: No acute cardiopulmonary disease/process. [facility], , 01/16/2025 6:50 PM
--- NOTE | 2025-01-16 19:07 | CT ---
EXAMINATION TYPE: CT brain cspine wo con DATE OF EXAM: 01/16/2025 6:39 PM COMPARISON: None. CLINICAL INDICATION: Male, 59 years old with history of fall; Fall, pain TECHNIQUE: Brain: Multiple axial CT images of the brain were obtained without IV contrast. Cspine: Axial CT images from the skull base to the inferior aspect of T2 we obtained without intraven ous contrast. Coronal and sagittal reformatted images were also reviewed. . CT DLP: Combined 2198.2 mGycm, Automated exposure control for dose reduction was used. FINDINGS: Brain: Extra-axial spaces: No abnormal extra-axial fluid collections. Ventricular system: Within normal limits Cerebral parenchyma: No acute intraparenchymal hemorrhage or mass effect. The melendrez-white junction is well differentiated. Cerebellum: Unremarkable. Mass effect: No evidence of midline shift. Intracranial vasculature: unremarkable Soft tissues: Normal. Calvarium/osseous structures: No depressed skull fracture. Paranasal sinuses and mastoid air cells: Mild scattered mucosal thickening and or secretions. Visualized orbits: Orbital contents are intact. Cervical spine: Fracture: None. Osseous structures: Multilevel degenerative disc disease changes with endplate spurring and disc oste ophyte complex's. Vertebral alignment: Within normal limits. Spinal canal/Neural Foramina: No evidence of significant spinal canal narrowing. No evidence for sign ificant neural foraminal stenosis. Neck soft tissues: Prevertebral soft tissues are within normal limits. Other: The airway is patent. The lung apices are clear. IMPRESSION: 1. No acute intracranial process. 2. No evidence of cervical spine fracture. 3. Mild multilevel degenerative disc disease. [facility], , 01/16/2025 7:05 PM
[2025-01-16 19:23] VITALS: BP 123/58; PULSE 68; RESP 18
== END 2025-01-16 19:45 | disposition home or self-care (01) ==
LOC: EC 14:23
DX: M79.10 Myalgia, unspecified site (principal); I48.91 Unspecified atrial fibrillation; E66.9 Obesity, unspecified; Z87.891 Personal history of nicotine dependence; Z68.43 Body mass index [BMI] 50.0-59.9, adult; W01.0XXA Fall on same level from slipping, tripping and stumbling without subsequent striking against object, initial encounter
CPT/HCPCS: 70450; 71046; 72125; 93005; 99285

== ENCOUNTER 2025-02-10 18:06 | Inpatient (IN) | payer MEDICARE ==
--- NOTE | 2025-02-10 18:17 | ED ---
General Adult HPI - General Chief complaint: Shortness of Breath Stated complaint: Chest Pain Time Seen by Provider: 02/10/25 18:16 Source: patient, EMS Mode of arrival: EMS Limitations: no limitations - History of Present Illness Initial comments: Patient presents to the ED by ambulance for evaluation. Patient states that he has had a productive cough, congestion, dyspnea, chest tightness and fever since last night. Patient denies taking any antipyretic medication. Patient denies headache, neck pain/stiffness, sore throat, hemoptysis, palpitations, dizziness, abdominal pain, nausea/vomiting/diarrhea, dysuria or urinary symptoms, decreased urine output, leg or calf swelling or pain, or any other symptoms or complaints. - Related Data Home Medications Medication Instructions Recorded Confirmed Spironolactone [Aldactone] 25 mg PO DAILY 12/25/20 02/10/25 Umeclidinium [place] [Incruse 1 puff INHALATION RT-DAILY 12/18/23 02/10/25 Ellipta] Albuterol Inhaler [Ventolin Hfa 2 puff INHALATION RT-Q6H PRN 02/06/24 02/10/25 Inhaler] Apixaban [Eliquis] 5 mg PO BID 02/06/24 02/10/25 Fluticasone Propion/Salmeterol 2 puff INHALATION RT-BID 02/06/24 02/10/25 [Advair Hfa 230-21 Mcg Inhaler] Atorvastatin [Lipitor] 10 mg PO HS 01/16/25 02/10/25 Furosemide [Lasix] 80 mg PO BID 01/16/25 02/10/25 Metoprolol Succinate [Toprol XL] 50 mg PO DAILY 01/16/25 02/10/25 Pantoprazole [Protonix] 40 mg PO DAILY 01/16/25 02/10/25 Tamsulosin [Flomax] 0.4 mg PO HS 01/16/25 02/10/25 Montelukast [Singulair] 10 mg PO HS 02/10/25 02/10/25 acetaZOLAMIDE [Diamox] 250 mg PO BID 02/10/25 02/10/25 Allergies Allergy/AdvReac Type Severity Reaction Status Date / Time isosorbide [From [facility]] AdvReac headache & Verified 02/10/25 19:51 blurred vision Review of Systems ROS Statement: Those systems with pertinent positive or pertinent negative responses have been documented in the HPI. ROS Other: All systems not noted in ROS Statement are negative. Past Medical History Past Medical History: Atrial Fibrillation, Asthma, COPD, GERD/Reflux, Osteoar thritis (OA), Pneumonia, Sleep Apnea/CPAP/BIPAP Additional Past Medical History / Comment(s): JEANIE/unable to tolerate cpap, pneumonias, bronchitis, chronic lower extremity lymphedema/redness/scabs, arthritis in multiple joints/chronic pain/chronic back pain History of Any Multi-Drug Resistant Organisms: None Reported Past Surgical History: Adenoidectomy, Appendectomy, Orthopedic Surgery, Tonsillectomy Additional Past Surgical History / Comment(s): Bilateral knee arthroscopy, UVPPP, carpal tunnel surgery, right shoulder surgery, colonoscopy/benign polypectomy. Past Anesthesia/Blood Transfusion Reactions: No Reported Reaction Past Psychological History: No Psychological Hx Reported Smoking Status: Former smoker Past Alcohol Use History: None Reported Past Drug Use History: None Reported - Past Family History Father History Unknown: Yes Family Medical History: Cancer Additional Family Medical History / Comment(s): . Mother History Unknown: Yes Family Medical History: Deep Vein Thrombosis (DVT) General Exam Limitations: no limitations General appearance: alert Head exam: Present: atraumatic Eye exam: Present: normal appearance ENT exam: Present: normal oropharynx, mucous membranes moist Neck exam: Present: other (Trachea is in midline). Absent: tenderness, meningismus Respiratory exam: Present: normal lung sounds bilaterally. Absent: respiratory distress, wheezes, rales, rhonchi, stridor Cardiovascular Exam: Present: normal rhythm, tachycardia, normal heart sounds, other (Normal radial pulses bilaterally) GI/Abdominal exam: Present: soft, other (Obese abdomen). Absent: tenderness, guarding Extremities exam: Present: other (Blanching erythema, warmth and tenderness is noted extending from just above the patient's left ankle to just above his left knee-> no crepitation or fluctuance is appreciated; findings are consistent with left lower extremity cellulitis). Absent: pedal edema, calf tenderness Back exam: Absent: CVA tenderness (R), CVA tenderness (L) Neurological exam: Present: alert, oriented X3 Skin exam: Present: warm, dry Course Vital Signs 02/10/25 02/10/25 02/10/25 18:13 19:13 19:37 Temperature 104.1 F H 99.1 F Pulse Rate 106 H 70 92 Respiratory 24 19 20 Rate Blood Pressure 107/60 84/43 90/63 O2 Sat by Pulse 93 L 96 98 Oximetry 02/10/25 02/10/25 19:51 20:04 Temperature Pulse Rate 94 87 Respiratory 20 18 Rate Blood Pressure 89/53 82/71 O2 Sat by Pulse 98 98 Oximetry - Reevaluation(s) Reevaluation #1: 02/10/25 20:36 Case, H&P, test results and ED management thus far were discussed with Dr. Quiroz. He accepts hospital admission. He requests infectious disease consultation. He has no further recommendations at this time 02/10/25 20:49 Patient is aware of his test results, and he agrees with hospital admission. Patient's fever and tachycardia have improved with ED treatment. Patient denies development of any new symptoms while in the ED. Patient remains alert and b reathing comfortably. EKG Findings - EKG Comments: EKG Findings:: ED physician interpretation (interpreted by me): Sinus tachycardia, no ectopy, ventricular rate 102 bpm, right bundle branch block, normal MT interval, QRS duration of 124 ms, normal QT interval, normal axis, no ST elevation, no significant change when compared to 01/16/2025 EKG Medical Decision Making - Medical Decision Making Was pt. sent in by a medical professional or institution (, PA, JANITORIAL TECH, urgent care, hospital, or fdc...) When possible be specific @ -No Did you speak to anyone other than the patient for history (EMS, parent, family, police, friend...)? What history was obtained from this source @ -No Did you review nursing and triage notes (agree or disagree)? Why? @ -I reviewed and agree with nursing and triage notes Were old charts reviewed (outside hosp., previous admission, EMS record, old EKG, old radiological studies, urgent care reports/EKG's, fdc records)? Report findings @ -No old charts were reviewed Differential Diagnosis (chest pain, altered mental status, abdominal pain women, abdominal pain men, vaginal bleeding, weakness, fever, dyspnea, syncope, he adache, dizziness, GI bleed, back pain, seizure, CVA, palpatations, mental health, musculoskeletal)? @ -Differential Fever: Pneumonia, viral URI, bronchitis, cellulitis, influenza, COVID, ACS/NH, pe ricarditis, CHF, pleural effusion, UTI, pyelonephritis, sepsis, this is not meant to be an all-inclusive list. EKG interpreted by me (3pts min.). @ -As above X-rays interpreted by me (1pt min.). @ -Chest x-ray shows no acute pulmonary disease. Left tib/fib x-rays showed no acute osseous abnormality. I agree with the radiologist's interpretations as above. CT interpreted by me (1pt min.). @ -None done U/S interpreted by me (1pt. min.). @ -None done What testing was considered but not performed or refused? (CT, X-rays, U/S, labs)? Why? @ -None What meds were considered but not given or refused? Why? @ -None Did you discuss the management of the patient with other professionals (raul iniguez i.e. , PA, JANITORIAL TECH, lab, RT, psych nurse, pediatric social worker, transportation refrigeration technician, teacher, aboriginal liaison officer, telehealth case manager)? Give summary @ -As above. Was smoking cessation discussed for >3mins.? @ -No Was critical care preformed (if so, how long)? @ -Yes, 35 minutes. Were there social determinants of health that impacted care today? How? (Homelessness, low income, unemployed, alcoholism, drug addiction, graff sportation, low edu. Level, literacy, decrease access to med. care, correction, rehab)? @ -No Was there de-escalation of care discussed even if they declined (Discuss DNR or withdrawal of care, Hospice)? DNR status @ -No What co-morbidities impacted this encounter? (DM, HTN, Smoking, COPD, CAD, Cancer, CVA, ARF, Chemo, Hep., AIDS, mental health diagnosis, sleep apnea, morbid obesity)? @ -Obesity Was patient admitted / discharged? Hospital course, mention meds given and route, prescriptions, significant lab abnormalities, going to OR and other pertinent info. @ -Patient's fever and tachycardia have improved with ED treatment. I suspect that the patient's leukocytosis and fever are likely due to a combination of upper respiratory infection and left lower extremity cellulitis given the patient's symptoms and physical examination findings. Patient's troponin is within normal limits. Patient's lactate level is also within normal limits. Patient has been treated with IV fluids and IV Zosyn in the ED. Blood cultures have been obtained. Will admit the patient to the hospital for continued IV antibiotics and further evaluation/treatment as necessary. Dr. Quiroz has accepted hospital admission. Undiagnosed new problem with uncertain prognosis? @ -No Drug Therapy requiring intensive monitoring for toxicity (Heparin, Nitro, Insulin, Cardizem)? @ -No Were any procedures done? @ -No Diagnosis/symptom? @ -Acute febrile illness, upper respiratory infection, left lower extremity natanael lulitis, sepsis, hyponatremia Acute, or Chronic, or Acute on Chronic? @ -Acute Uncomplicated (without systemic symptoms) or Complicated (systemic symptoms)? @ -Default Side effects of treatment? @ -No Exacerbation, Progression, or Severe Exacerbation? @ -No Poses a threat to life or bodily function? How? (Chest pain, USA, NH, pneumonia, PE, COPD, DKA, ARF, appy, cholecystitis, CVA, Diverticulitis, Homicidal, Suicidal, threat to staff... and all critical care pts) @ -Possibly. - Lab Data Result diagrams: 02/10/25 18:21 02/10/25 18:21 Lab Results 02/10/25 02/10/25 02/10/25 Range/Units 18:21 18:21 18:21 WBC 19.8 H (3.8-10.6) k/uL RBC 4.98 (4.30-5.90) m/uL Hgb 11.4 L (13.0-17.5) gm/dL Hct 37.8 L (39.0-53.0) % MCV 75.9 L (80.0-100.0) fL MCH 23.0 L (25.0-35.0) pg MCHC 30.2 L (31.0-37.0) g/dL RDW 15.5 (11.5-15.5) % Plt Count 263 (150-450) k/uL MPV 7.3 Neutrophils % 94 % Lymphocytes % 2 % Monocytes % 3 % Eosinophils % 1 % Basophils % 0 % Neutrophils # 18.5 H (1.3-7.7) k/uL Lymphocytes # 0.3 L (1.0-4.8) k/uL Monocytes # 0.6 (0-1.0) k/uL Eosinophils # 0.1 (0-0.7) k/uL Basophils # 0.0 (0-0.2) k/uL Hypochromasia Moderate Microcytosis Slight PT 12.0 (10.0-12.5) sec INR 1.1 (<1.2) APTT 25.8 (22.0-30.0) sec Sodium 128 L (137-145) mmol/L Potassium 3.3 L (3.5-5.1) mmol/L Chloride 92 L (98-107) mmol/L Carbon Dioxide 29 (22-30) mmol/L Anion Gap 7 mmol/L BUN 18 (9-20) mg/dL Creatinine 1.12 (0.66-1.25) mg/dL Est GFR (CKD-EPI)AfAm 84 (>60 ml/min/1.73 sqM) Est GFR (CKD-EPI)NonAf 73 (>60 ml/min/1.73 sqM) Glucose 165 H (74-99) mg/dL Plasma Lactic Acid Dionicio (0.7-2.0) mmol/L Calcium 8.4 (8.4-10.2) mg/dL Total Bilirubin 0.9 (0.2-1.3) mg/dL AST 19 (17-59) U/L ALT 14 (4-49) U/L Alkaline Phosphatase 116 (38-126) U/L Troponin I (0.000-0.034) ng/mL NT-Pro-B Natriuret Pep 802 pg/mL Total Protein 6.2 L (6.3-8.2) g/dL Albumin 3.4 L (3.5-5.0) g/dL Influenza Type A (PCR) (Not Detectd) Influenza Type B (PCR) (Not Detectd) RSV (PCR) (Not Detectd) SARS-CoV-2 (PCR) (Not Detectd) 02/10/25 02/10/25 02/10/25 Range/Units 18:21 18:30 18:30 WBC (3.8-10.6) k/uL RBC (4.30-5.90) m/uL Hgb (13.0-17.5) gm/dL Hct (39.0-53.0) % MCV (80.0-100.0) fL MCH (25.0-35.0) pg MCHC (31.0-37.0) g/dL RDW (11.5-15.5) % Plt Count (150-450) k/uL MPV Neutrophils % % Lymphocytes % % Monocytes % % Eosinophils % % Basophils % % Neutrophils # (1.3-7.7) k/uL Lymphocytes # (1.0-4.8) k/uL Monocytes # (0-1.0) k/uL Eosinophils # (0-0.7) k/uL Basophils # (0-0.2) k/uL Hypochromasia Microcytosis PT (10.0-12.5) sec INR (<1.2) APTT (22.0-30.0) sec Sodium (137-145) mmol/L Potassium (3.5-5.1) mmol/L Chloride (98-107) mmol/L Carbon Dioxide (22-30) mmol/L Anion Gap mmol/L BUN (9-20) mg/dL Creatinine (0.66-1.25) mg/dL Est GFR (CKD-EPI)AfAm (>60 ml/min/1.73 sqM) Est GFR (CKD-EPI)NonAf (>60 ml/min/1.73 sqM) Glucose (74-99) mg/dL Plasma Lactic Acid Dionicio 1.4 (0.7-2.0) mmol/L Calcium (8.4-10.2) mg/dL Total Bilirubin (0.2-1.3) mg/dL AST (17-59) U/L ALT (4-49) U/L Alkaline Phosphatase (38-126) U/L Troponin I <0.012 (0.000-0.034) ng/mL NT-Pro-B Natriuret Pep pg/mL Total Protein (6.3-8.2) g/dL Albumin (3.5-5.0) g/dL Influenza Type A (PCR) Not Detected (Not Detectd) Influenza Type B (PCR) Not Detected (Not Detectd) RSV (PCR) Not Detected (Not Detectd) SARS-CoV-2 (PCR) Not Detected (Not Detectd) - Radiology Data Chest x-ray: No acute pulmonary process. Left tib/fib x-rays: 1. Advanced degenerative changes at the left knee. 2. No acute osseous abnormality within the left tibia and fibula. 3. Diffuse soft tissue swelling notably along the anterior proximal to mid tibia. Critical Care Time Critical Care Time: Yes Total Critical Care Time: 35 Disposition Clinical Impression: Febrile illness, Left leg cellulitis, Hyponatremia, Upper respiratory infection, acute, Sepsis Disposition: ADMITTED IP TO THIS [facility] Condition: Stable Is patient prescribed a controlled substance at d/c from ED?: No Referrals: Geovanni Edmondson MD [Primary Care Provider] - 1-2 days Time of Disposition: 20:49
[2025-02-10] MEDS: ACETAMINOPHEN TAB 500 MG TAB PO STA (18:26)
[2025-02-10] MEDS: IBUPROFEN 600 MG TAB PO STA (18:26)
[2025-02-10 18:45] LABS: Basophils % (A) 0 %; Eosinophils # (A) 0.1 k/uL (0-0.7); Eosinophils % (A) 1 %; HCT 37.8 % (39.0-53.0); HGB 11.4 gm/dL (13.0-17.5); Hypochromasia Moderate; Lymphocytes # (A) 0.3 k/uL (1.0-4.8); Lymphocytes % (A) 2 %; MCHC 30.2 g/dL (31.0-37.0); MCV 75.9 fL (80.0-100.0); Mean Platelet Volume 7.3; Microcytosis Slight; Monocytes # (A) 0.6 k/uL (0-1.0); Monocytes % (A) 3 %; Neutrophils # (A) 18.5 k/uL (1.3-7.7); Neutrophils % (A) 94 %; Platelet Count 263 k/uL (150-450); RBC 4.98 m/uL (4.30-5.90); RDW 15.5 % (11.5-15.5); WBC 19.8 k/uL (3.8-10.6)
[2025-02-10 18:54] LABS: INR 1.1 (<1.2); Partial Thromboplastin Time 25.8 sec (22.0-30.0)
[2025-02-10 18:55] LABS: ALT 14 U/L (4-49); AST 19 U/L (17-59); African American GFR (CKD) 84 (>60 ml/min/1.73 sqM); Albumin 3.4 g/dL (3.5-5.0); Alkaline Phosphatase 116 U/L (38-126); Anion Gap 7 mmol/L; Blood Urea Nitrogen 18 mg/dL (9-20); Calcium 8.4 mg/dL (8.4-10.2); Carbon Dioxide 29 mmol/L (22-30); Chloride 92 mmol/L (98-107); Glucose 165 mg/dL (74-99); Non-African American GFR(CKD) 73 (>60 ml/min/1.73 sqM); Potassium 3.3 mmol/L (3.5-5.1); Sodium 128 mmol/L (137-145); Total Bilirubin 0.9 mg/dL (0.2-1.3); Total Protein 6.2 g/dL (6.3-8.2)
[2025-02-10 19:03] LABS: NT-Pro-B-Type Natriuretic Pept 802 pg/mL
[2025-02-10 19:20] LABS: Influenza A Not Detected (Not Detectd); Influenza B Not Detected (Not Detectd); RSV Not Detected (Not Detectd)
--- NOTE | 2025-02-10 19:27 | XR ---
EXAMINATION TYPE: XR tibia fibula LT DATE OF EXAM: 02/10/2025 7:22 PM COMPARISON: None. CLINICAL INDICATION: Male, 59 years old with history of cellulitis, pain TECHNIQUE: 2 view(s) obtained. FINDINGS: There is loss of the medial compartment joint space. There is narrowing lateral compartment joint spa ce. There appears to be some intra-articular calcification within the lateral compartment. Medial and lateral tibial plateau and femoral condylar spurring is present. No acute fractures are identified. Ankle joint space appears normal. Plantar calcaneal heel spur is present. Patellofemoral joint space narrowing is present. No effusion is identified. There is mild soft tissue swelling over the proximal mid anterior tibia. No subcutaneous air is ident ified. No cortical erosions are evident. IMPRESSION: 1. Advanced degenerative changes at the left knee. 2. No acute osseous abnormality within the left tibia and fibula. 3. Diffuse soft tissue swelling notably along the anterior proximal to mid tibia. [facility], , 02/10/2025 7:25 PM
[2025-02-10] MEDS: SODIUM CHLORIDE 0.9% 1,000 ML IV ONE ×2 (19:29→20:35)
[2025-02-10] MEDS: PIPERACILLIN-TAZOBACTAM 3.375 GM in SODIUM CHLORIDE 0.9% 100 ML IVPB STA (19:29)
--- NOTE | 2025-02-10 20:17 | XR ---
EXAMINATION TYPE: XR chest 1V portable DATE OF EXAM: 02/10/2025 7:40 PM COMPARISON: 01/16/2025 CLINICAL INDICATION: Male, 59 years old with history of cough, dyspnea, TECHNIQUE: XR chest 1V portable view(s) obtained. FINDINGS: The heart size is normal. The pulmonary vasculature is normal. The lungs are clear. IMPRESSION: 1. No acute pulmonary process. [facility], , 02/10/2025 8:15 PM
[2025-02-10] MEDS ORDERED: NALOXONE 0.4 MG/ML 1 ML VIAL IV PRN (20:36)
[2025-02-10] MEDS: SODIUM CHLORIDE 0.9% 1,000 ML IV SCH (20:45)
[2025-02-11 03:43] LABS: Appearance,Urine Clear (Clear); Bilirubin,Urine Negative (Negative); Blood,Urine Negative (Negative); Color,Urine Colorless; Glucose,Urine (UA) Negative (Negative); Ketones,Urine Negative (Negative); Leukocyte Esterase,Urine Negative (Negative); Nitrite,Urine Negative (Negative); PH, Urine 5.5 (5.0-8.0); Protein,Urine Negative (Negative); Specific Gravity,Urine 1.006 (1.001-1.035); Urobilinogen,Urine <2.0 mg/dL (<2.0)
[2025-02-11] MEDS ORDERED: ALBUTEROL NEBULIZED 2.5 MG/3 ML INHALATION PRN (07:37)
[2025-02-11] MEDS: SYMBICORT 160-4.5 MCG INHALER INHALATION SCH (09:04)
[2025-02-11] MEDS: TIOTROPIUM 2.5 MCG INHALER INHALATION SCH (09:04)
[2025-02-11] MEDS: METOPROLOL SUCCINATE (ER) 50 MG TAB.ER.24H PO SCH (10:01)
[2025-02-11] MEDS: PANTOPRAZOLE 40 MG TABLET PO SCH (10:01)
[2025-02-11] MEDS: SPIRONOLACTONE 25 MG TAB PO SCH (10:01)
[2025-02-11] MEDS: acetaZOLAMIDE 250 MG TAB PO SCH (10:01)
[2025-02-11] MEDS: APIXABAN 5 MG TAB PO SCH (10:01)
[2025-02-11] MEDS: FUROSEMIDE 80 MG TAB PO SCH (10:02)
[2025-02-11 11:15] LABS: HCT 36.8 % (39.6-50.0); HGB 10.7 g/dL (13.0-17.0); MCH 23.1 pg (27.0-32.0); MCHC 29.1 g/dL (32.0-37.0); MCV 79.3 FL (80.0-97.0); Mean Platelet Volume 9.5 FL (9.5-12.2); NRBC Per 100 WBC 0 X 10*3/uL (0.00-0.01); Platelet Count 251 X 10*3/uL (140-440); RBC 4.64 X 10*6/uL (4.40-5.60); RDW 15.9 % (11.5-14.5)
[2025-02-11 11:16] LABS: Basophils # (A) 0.04 X 10*3/uL (0.00-0.10); Basophils % (A) 0.3 %; Eosinophils # (A) 0.01 X 10*3/uL (0.04-0.35); Eosinophils % (A) 0.1 %; Lymphocytes # (A) 0.73 X 10*3/uL (0.90-5.00); Lymphocytes % (A) 4.9 %; Monocytes # (A) 1.01 X 10*3/uL (0.20-1.00); Monocytes % (A) 6.8 %; Neutrophils # (A) 13.02 X 10*3/uL (1.80-7.70); Neutrophils % (A) 87.3 %
[2025-02-11 11:49] LABS: ALT 11 U/L (10-49); AST 17 U/L (14-35); Albumin 3.2 g/dL (3.8-4.9); Albumin/Globulin Ratio 1.45 Ratio (1.60-3.17); Alkaline Phosphatase 102 U/L (41-126); Blood Urea Nitrogen 19.2 mg/dL (9.0-27.0); Calcium 7.9 mg/dL (8.7-10.3); Carbon Dioxide 27.9 mmol/L (21.6-31.8); Chloride 98 mmol/L (96-109); Globulin 2.2 g/dL (1.6-3.3); Glucose 171 mg/dL (70-110); Potassium 3.3 mmol/L (3.5-5.5); Sodium 138 mmol/L (135-145); Total Bilirubin 0.4 mg/dL (0.3-1.2); Total Protein 5.4 g/dL (6.2-8.2)
[2025-02-11] MEDS: PSYLLIUM HUSK 100% 6 GM PACKET PO SCH (14:57)
[2025-02-11] MEDS: POTASSIUM CHLORIDE ER 20 MEQ TAB.ER PO STA (16:18)
--- NOTE | 2025-02-11 17:23 | P.HPIM ---
History of Present Illness H&P Date: 02/11/25 Chief Complaint: Cough fever pleasant 59 years old male ,Has a history of COPD, obstructive sleep apnea had a UPPP. Osteoarthritis in multiple joints especially the knees. chronically short of breath. Baseline uses crutches Presented with shortness of breath. Chills. Fever. Had a fever of 104 in the ER. Has a cough. Decreased appetite. Tired. Nasal congestion. Review of systems: GEN.: Tired, fever chills EYES: None HEENT: None NECK: None RESPIRATORY: As above CARDIOVASCULAR: As above GASTROINTESTINAL: No BM for 3 days GENITOURINARY: None MUSCULOSKELETAL: Joint pains LYMPHATICS: None HEMATOLOGICAL: None PSYCHIATRY: Anxious NEUROLOGICAL: None Past medical history to include: COPD, osteoarthritis, obstructive sleep apnea with UPPP, dry skin Social history: Lives with brother. Smoked for about 14 years stopped in 2006. Currently not employed. Used to work at [employer]. Physical examination: VITAL SIGNS: Tmax 104.1 on presentation, 106, 24, 107 x 60, 93% room GENERAL: BMI 61.4, reclining better coughing, congested, EYES: Pupils equal. Conjunctiva normal. HEENT: External appearance of nose and ears normal, oral cavity grossly normal. NECK: JVD unable to assess masses not palpable. HEART: Heart sounds muffled; edema present LUNGS: Respiratory rate increased, distant breath sounds. wheezing ABDOMEN: Soft, nontender, liver spleen not palpable, no masses palpable. PSYCH: Alert and oriented x3; mood and affect with anxious DERMATOLOGICAL: Probable some chronic changes lower extremity NEUROLOGICAL: Cranial nerves grossly intact; no facial asymmetry, power and sensation grossly intact. DERMATOLOGICAL: Redness lower extremity. Cyanosis. Cracking of the heel. INVESTIGATIONS, reviewed in the clinical context: February 11: White count 14.9 hemoglobin 10.7 platelets 251 sodium 138 potassium 3.3 creatinine 1.2 procalcitonin 4.83 EKG tracing personally reviewed by me-normal sinus rhythm. Right bundle jaja block. Some ST-T wave changes Chest x-ray film personally reviewed by me-left basilar dense infiltrate Previous labs 2D echocardiogram: EF 55 to 60%. Severe concentric LVH. Severely increased septal wall thickness. Assessment and plan: - Left basal pneumonia suspect gram-negative organism causing sepsis IV ceftriaxone. Blood cultures pending. Hold fluids because of CHF ID consulted - cor pulmonale: Chronic P.o. Lasix. -Acute hypoxic respiratory failure pneumonia 2 L nasal cannula - chronic congestive heart failure exacerbation from diastolic dysfunction EF 55 to 60%: Fluid restrict 2000 cc a day Lasix . Aldactone Chronic COPD [no previous smoker] Incruse Ellipta. Advair -Metabolic alkalosis due to diuresis Diamox for 7 more days -Bilateral lower extremity xeroderma Topical care -Obesity hypoventilation syndrome/pickwickian syndrome -Obstructive sleep apnea with the patient-previously had UPPP Does not use CPAP because of panic attacks -Paroxysmal atrial fibrillation, currently in sinus rhythm . Toprol-XL 50 mg a day. Eliquis. -Hypertensive heart disease with severe LVH Lopressor -Essential hypertension Lopressor -Intertriginous candidiasis Topical nystatin powder -Bilateral knee arthralgia Tylenol when necessary -Morbid obesity BMI 61.4 Weight loss measures -Chronic lower extremity venous insufficiency with skin changes -Full code Past Medical History Past Medical History: Atrial Fibrillation, Asthma, COPD, GERD/Reflux, Osteoarthritis (OA), Pneumonia, Sleep Apnea/CPAP/BIPAP Additional Past Medical History / Comment(s): JEANIE/unable to tolerate cpap, pneumonias, bronchitis, chronic lower extremity lymphedema/redness/scabs, arthritis in multiple joints/chronic pain/chronic back pain History of Any Multi-Drug Resistant Organisms: None Reported Past Surgical History: Adenoidectomy, Appendectomy, Orthopedic Surgery, Tonsillectomy Additional Past Surgical History / Comment(s): Bilateral knee arthroscopy, UVPPP, carpal tunnel surgery, right shoulder surgery, colonoscopy/benign polypectomy. Past Anesthesia/Blood Transfusion Reactions: No Reported Reaction Past Psychological History: No Psychological Hx Reported Additional Psychological History / Comment(s): Pt has a brother/nephew who live with him. Pt uses crutches to ambulate. Smoking Status: Former smoker Past Alcohol Use History: None Reported Additional Past Alcohol Use History / Comment(s): Pt started smoking in 1979 and quit smoking 12/09/2006. Past Drug Use History: None Reported - Past Family History Father History Unknown: Yes Family Medical History: Cancer Additional Family Medical History / Comment(s): . Mother History Unknown: Yes Family Medical History: Deep Vein Thrombosis (DVT) Medications and Allergies Home Medications Medication Instructions Recorded Confirmed Type Spironolactone [Aldactone] 25 mg PO DAILY 12/25/20 02/10/25 History Umeclidinium [place] [Incruse 1 puff INHALATION RT-DAILY 12/18/23 02/10/25 History Ellipta] Albuterol Inhaler [Ventolin Hfa 2 puff INHALATION RT-Q6H PRN 02/06/24 02/10/25 History Inhaler] Apixaban [Eliquis] 5 mg PO BID 02/06/24 02/10/25 History Fluticasone Propion/Salmeterol 2 puff INHALATION RT-BID 02/06/24 02/10/25 History [Advair Hfa 230-21 Mcg Inhaler] Atorvastatin [Lipitor] 10 mg PO HS 01/16/25 02/10/25 History Furosemide [Lasix] 80 mg PO BID 01/16/25 02/10/25 History Metoprolol Succinate [Toprol XL] 50 mg PO DAILY 01/16/25 02/10/25 History Pantoprazole [Protonix] 40 mg PO DAILY 01/16/25 02/10/25 History Tamsulosin [Flomax] 0.4 mg PO HS 01/16/25 02/10/25 History Montelukast [Singulair] 10 mg PO HS 02/10/25 02/10/25 History acetaZOLAMIDE [Diamox] 250 mg PO BID 02/10/25 02/10/25 History Allergies Allergy/AdvReac Type Severity Reaction Status Date / Time isosorbide [From [facility]] AdvReac headache & Verified 02/10/25 19:51 blurred vision Physical Exam Vitals: Vital Signs Temp Pulse Pulse Resp BP BP Pulse Ox 02/11/25 09:05 95 02/11/25 07:40 98.2 F 82 22 112/64 97 02/11/25 05:30 97.6 F 82 20 135/71 99 02/11/25 02:15 97.4 F L 80 18 98/54 91 L 02/11/25 00:26 80 18 101/64 98 02/10/25 23:30 82 18 105/60 96 02/10/25 22:53 84 18 100/58 95 02/10/25 22:37 82 18 101/60 98 02/10/25 22:23 88 18 101/57 97 02/10/25 22:01 82 18 108/58 97 02/10/25 21:51 89 18 120/63 98 02/10/25 21:35 87 18 99/52 98 02/10/25 21:26 89 18 110/65 97 02/10/25 21:16 84 18 93/43 98 02/10/25 20:58 89 18 82/71 97 02/10/25 20:35 91 18 88/33 98 02/10/25 20:04 87 18 82/71 98 02/10/25 19:51 94 20 89/53 98 02/10/25 19:37 92 20 90/63 98 02/10/25 19:13 99.1 F 70 19 84/43 96 02/10/25 18:13 104.1 F H 106 H 24 107/60 93 L FiO2 02/11/25 09:05 31 02/11/25 07:40 02/11/25 05:30 02/11/25 02:15 02/11/25 00:26 02/10/25 23:30 02/10/25 22:53 02/10/25 22:37 02/10/25 22:23 02/10/25 22:01 02/10/25 21:51 02/10/25 21:35 02/10/25 21:26 02/10/25 21:16 02/10/25 20:58 02/10/25 20:35 02/10/25 20:04 02/10/25 19:51 02/10/25 19:37 02/10/25 19:13 02/10/25 18:13 Intake and Output 02/10/25 02/11/25 02/11/25 22:59 06:59 14:59 Intake Total 1700 Balance 1700 Intake: Oral 1700 Other: # Voids 3 Weight 183.251 kg Results CBC & Chem 7: 02/11/25 03:20 02/11/25 03:20 Labs: Abnormal Lab Results - Last 24 Hours (Table) 02/10/25 02/10/25 02/11/25 Range/Units 18:21 18:21 03:20 WBC 19.8 H 14.90 H (3.8-10.6) k/uL Hgb 11.4 L 10.7 L (13.0-17.5) gm/dL Hct 37.8 L 36.8 L (39.0-53.0) % MCV 75.9 L 79.3 L (80.0-100.0) fL MCH 23.0 L 23.1 L (25.0-35.0) pg MCHC 30.2 L 29.1 L (31.0-37.0) g/dL RDW 15.9 H (11.5-14.5) % Immature Gran # 0.09 H (0.00-0.04) X 10*3/uL Neutrophils # 18.5 H 13.02 H (1.3-7.7) k/uL Lymphocytes # 0.3 L 0.73 L (1.0-4.8) k/uL Monocytes # 1.01 H (0.20-1.00) X 10*3/uL Eosinophils # 0.01 L (0.04-0.35) X 10*3/uL Sodium 128 L (137-145) mmol/L Potassium 3.3 L (3.5-5.1) mmol/L Chloride 92 L (98-107) mmol/L Anion Gap (4.00-12.00) mmol/L Glucose 165 H (74-99) mg/dL Calcium (8.7-10.3) mg/dL Total Protein 6.2 L (6.3-8.2) g/dL Albumin 3.4 L (3.5-5.0) g/dL Albumin/Globulin Ratio (1.60-3.17) Ratio // Range/Units 03:20 WBC (3.8-10.6) k/uL Hgb (13.0-17.5) gm/dL Hct (39.0-53.0) % MCV (80.0-100.0) fL MCH (25.0-35.0) pg MCHC (31.0-37.0) g/dL RDW (11.5-14.5) % Immature Gran # (0.00-0.04) X 10*3/uL Neutrophils # (1.3-7.7) k/uL Lymphocytes # (1.0-4.8) k/uL Monocytes # (0.20-1.00) X 10*3/uL Eosinophils # (0.04-0.35) X 10*3/uL Sodium (137-145) mmol/L Potassium 3.3 L (3.5-5.1) mmol/L Chloride (98-107) mmol/L Anion Gap 12.10 H (4.00-12.00) mmol/L Glucose 171 H (74-99) mg/dL Calcium 7.9 L (8.7-10.3) mg/dL Total Protein 5.4 L (6.3-8.2) g/dL Albumin 3.2 L (3.5-5.0) g/dL Albumin/Globulin Ratio 1.45 L (1.60-3.17) Ratio
[2025-02-11] MEDS: TAMSULOSIN 0.4 MG CAP.ER.24H PO SCH (20:58)
[2025-02-11] MEDS: LORATADINE-PSEUDOEPH 5-120 MG 1 EACH TAB.ER.12H PO SCH (20:58)
[2025-02-11] MEDS: ATORVASTATIN 10 MG TAB PO SCH (20:58)
[2025-02-11] MEDS: MONTELUKAST 10 MG TAB PO SCH (20:58)
[2025-02-11] MEDS: ACETAMINOPHEN TAB 325 MG TAB PO PRN (22:28)
--- NOTE | 2025-02-11 23:00 | P.CONS ---
History of Present Illness - Reason for Consult Consult date: 02/11/25 Acute febrile illness, cellulitis Requesting physician: Emmanuel Barroso - Chief Complaint Shortness of breath and cough x 1 day - History of Present Illness Patient is a 59-year-old male with a past medical history significant for Atrial Fibrillation, Asthma, COPD, GERD/Reflux, Osteoarthritis (OA), Pneumonia, Sleep Apnea/CPAP/BIPAP presenting to the hospital for evaluation of increasing shortness of breath chest tightness and cough which has been productive of some whitish-yellow sputum patient started running a fever as well for the patient was in the hospital on arrival to the ER patient did have a temperature of 104 F patient has been afebrile since then, patient was not tachycardic hypotensive or hypoxic currently on room air patient did have a whi te count of 19.8 with a left shift creatinine is 1.12 liver enzymes are normal urine has been negative patient tested negative for influenza RSV and COVID he did have a chest x-ray that was reported negative for acute infiltrate patient received a dose of Zosyn in the ER subsequently has been admitted to the hospital infectious was consulted for further management of antibiotic therapy consulted for left lower extremity cellulitis patient main symptom has been shortness of breath on minimal exertion or at rest he also have a cough moderate intensity and is bringing up Some sputum no chest pain did have some pain to the left lower extremity mostly dull aching moderate intense without radiation with some erythema Review of Systems Positive point and negatives has been mentioned in the HPI, complete review of systems was performed and all other systems are negative Past Medical History Past Medical History: Atrial Fibrillation, Asthma, COPD, GERD/Reflux, Osteoarthritis (OA), Pneumonia, Sleep Apnea/CPAP/BIPAP Additional Past Medical History / Comment(s): JEANIE/unable to tolerate cpap, pneumonias, bronchitis, chronic lower extremity lymphedema/redness/scabs, arthritis in multiple joints/chronic pain/chronic back pain History of Any Multi-Drug Resistant Organisms: None Reported Past Surgical History: Adenoidectomy, Appendectomy, Orthopedic Surgery, Tonsillectomy Additional Past Surgical History / Comment(s): Bilateral knee arthroscopy, UVPPP, carpal tunnel surgery, right shoulder surgery, colonoscopy/benign polype ctomy. Past Anesthesia/Blood Transfusion Reactions: No Reported Reaction Past Psychological History: No Psychological Hx Reported Additional Psychological History / Comment(s): Pt has a brother/nephew who live with him. Pt uses crutches to ambulate. Smoking Status: Former smoker Past Alcohol Use History: None Reported Additional Past Alcohol Use History / Comment(s): Pt started smoking in 1979 and quit smoking 12/09/2006. Past Drug Use History: None Reported - Past Family History Father History Unknown: Yes Family Medical History: Cancer Additional Family Medical History / Comment(s): . Mother History Unknown: Yes Family Medical History: Deep Vein Thrombosis (DVT) Medications and Allergies Home Medications Medication Instructions Recorded Confirmed Type Spironolactone [Aldactone] 25 mg PO DAILY 12/25/20 02/10/25 History Umeclidinium Otis [Incruse 1 puff INHALATION RT-DAILY 12/18/23 02/10/25 History Ellipta] Albuterol Inhaler [Ventolin Hfa 2 puff INHALATION RT-Q6H PRN 02/06/24 02/10/25 History Inhaler] Apixaban [Eliquis] 5 mg PO BID 02/06/24 02/10/25 History Fluticasone Propion/Salmeterol 2 puff INHALATION RT-BID 02/06/24 02/10/25 History [Advair Hfa 230-21 Mcg Inhaler] Atorvastatin [Lipitor] 10 mg PO HS 01/16/25 02/10/25 History Furosemide [Lasix] 80 mg PO BID 01/16/25 02/10/25 History Metoprolol Succinate [Toprol XL] 50 mg PO DAILY 01/16/25 02/10/25 History Pantoprazole [Protonix] 40 mg PO DAILY 01/16/25 02/10/25 History Tamsulosin [Flomax] 0.4 mg PO HS 01/16/25 02/10/25 History Montelukast [Singulair] 10 mg PO HS 02/10/25 02/10/25 History acetaZOLAMIDE [Diamox] 250 mg PO BID 02/10/25 02/10/25 History Allergies Allergy/AdvReac Type Severity Reaction Status Date / Time isosorbide [From Imdur] AdvReac headache & Verified 02/10/25 19:51 blurred vision Physical Exam Vitals: Vital Signs Temp Pulse Pulse Resp BP BP Pulse Ox 02/11/25 09:05 95 02/11/25 07:40 98.2 F 82 22 112/64 97 02/11/25 05:30 97.6 F 82 20 135/71 99 02/11/25 02:15 97.4 F L 80 18 98/54 91 L 02/11/25 00:26 80 18 101/64 98 02/10/25 23:30 82 18 105/60 96 02/10/25 22:53 84 18 100/58 95 02/10/25 22:37 82 18 101/60 98 02/10/25 22:23 88 18 101/57 97 02/10/25 22:01 82 18 108/58 97 02/10/25 21:51 89 18 120/63 98 02/10/25 21:35 87 18 99/52 98 02/10/25 21:26 89 18 110/65 97 02/10/25 21:16 84 18 93/43 98 02/10/25 20:58 89 18 82/71 97 02/10/25 20:35 91 18 88/33 98 02/10/25 20:04 87 18 82/71 98 02/10/25 19:51 94 20 89/53 98 02/10/25 19:37 92 20 90/63 98 02/10/25 19:13 99.1 F 70 19 84/43 96 02/10/25 18:13 104.1 F H 106 H 24 107/60 93 L FiO2 02/11/25 09:05 31 02/11/25 07:40 02/11/25 05:30 02/11/25 02:15 02/11/25 00:26 02/10/25 23:30 02/10/25 22:53 02/10/25 22:37 02/10/25 22:23 02/10/25 22:01 02/10/25 21:51 02/10/25 21:35 02/10/25 21:26 02/10/25 21:16 02/10/25 20:58 02/10/25 20:35 02/10/25 20:04 02/10/25 19:51 02/10/25 19:37 02/10/25 19:13 02/10/25 18:13 Intake and Output 02/10/25 02/11/25 02/11/25 22:59 06:59 14:59 Intake Total 1700 Balance 1700 Intake: Oral 1700 Other: # Voids 3 Weight 183.251 kg GENERAL DESCRIPTION: Middle-age male lying in bed, no distress. No tachypnea or accessory muscle of respiration use. HEENT: Shows Pallor , no scleral icterus. Oral mucous membrane is dry. No phary ngeal erythema or thrush NECK: Trachea central, no thyromegaly. LUNGS: Unlabored breathing. Coarse breath sound the base HEART: S1, S2, regular rate and rhythm. No loud murmur ABDOMEN: Soft, no tenderness , guarding or rigidity, no organomegaly EXTREMITIES: Few swelling to both lower extremity with some erythema to the left leg especially left medial thigh area SKIN: No rash, no masses palpable. NEUROLOGICAL: The patient is awake, alert, oriented x3, mood and affect normal. Results CBC & Chem 7: 02/11/25 03:20 02/11/25 03:20 Labs: Abnormal Lab Results - Last 24 Hours (Table) 02/10/25 02/10/25 02/11/25 Range/Units 18:21 18:21 03:20 WBC 19.8 H 14.90 H (3.8-10.6) k/uL Hgb 11.4 L 10.7 L (13.0-17.5) gm/dL Hct 37.8 L 36.8 L (39.0-53.0) % MCV 75.9 L 79.3 L (80.0-100.0) fL MCH 23.0 L 23.1 L (25.0-35.0) pg MCHC 30.2 L 29.1 L (31.0-37.0) g/dL RDW 15.9 H (11.5-14.5) % Immature Gran # 0.09 H (0.00-0.04) X 10*3/uL Neutrophils # 18.5 H 13.02 H (1.3-7.7) k/uL Lymphocytes # 0.3 L 0.73 L (1.0-4.8) k/uL Monocytes # 1.01 H (0.20-1.00) X 10*3/uL Eosinophils # 0.01 L (0.04-0.35) X 10*3/uL Sodium 128 L (137-145) mmol/L Potassium 3.3 L (3.5-5.1) mmol/L Chloride 92 L (98-107) mmol/L Glucose 165 H (74-99) mg/dL Total Protein 6.2 L (6.3-8.2) g/dL Albumin 3.4 L (3.5-5.0) g/dL Assessment and Plan (1) Pneumonia Current Visit: Yes Status: Acute Code(s): J18.9 - PNEUMONIA, UNSPECIFIED ORGANISM SNOMED Code(s): 199507960 (2) Left leg cellulitis Current Visit: Yes Status: Acute Code(s): L03.116 - CELLULITIS OF LEFT LOWER LIMB SNOMED Code(s): 60127348927960345 (3) Sepsis Current Visit: Yes Status: Acute Code(s): A41.9 - SEPSIS, UNSPECIFIED OR GANISM SNOMED Code(s): 30510296 Plan: 1patient [facility] with sepsis in this patient noted a fever elevated white count meeting criteria for SIRS source could be left lower extremity cellulitis and this patient did have diffuse swelling redness plus minus a component of pneumonia with predominantly respiratory symptom or shortness of breath or cough however initial chest x-ray did not show any acute infiltrate 2-we will check a sputum for Gram stain and culture 3-start the patient cefazolin 2 g every 8 hours while waiting for the culture to finalize We will follow on clinical condition and cultures to further adjust medication if needed Thank you for this consultation we will follow the patient along with you Dictation was produced using [employer] dictation software. please excuse any grammatical, word or spelling errors. Time with Patient: Greater than 30
--- NOTE | 2025-02-12 12:25 | P.PN ---
Subjective Progress Note Date: 02/12/25 Principal diagnosis: Reason for follow-up is fever/left leg cellulitis possible pneumonia Patient is a 59-year-old male with a past medical history significant for Atrial Fibrillation, Asthma, COPD, GERD/Reflux, Osteoarthritis (OA), Pneumonia, Sleep Apnea/CPAP/BIPAP presenting to the hospital for evaluation of increasing shortness of breath chest tightness and cough which has been productive of some whitish-yellow sputum admitted to hospital concern for left leg cellulitis with possible pneumonia. On today's evaluation that is 02/12/2025, patient did have resolution of his fever and is afebrile today he is currently breathing comfortably on room air denies any chest pain or worsening cough no abdominal pain left leg redness has decreased. The patient white count is down to 14.90, creatinine is 1.2 blood culture 4.83 urine is negative influenza RSV COVID testing negative blood culture so far negative Objective - Vital Signs Vital signs: Vital Signs Temp 97.4 F L 02/12/25 07:45 Pulse 79 02/12/25 07:45 Resp 17 02/12/25 07:45 BP 90/57 02/12/25 07:45 Pulse Ox 91 L 02/12/25 07:45 FiO2 21 02/11/25 09:05 Intake & Output 02/11/25 02/12/25 02/12/25 18:59 06:59 18:59 Other: # Voids 6 1 - Exam GENERAL DESCRIPTION: Middle-age male lying in bed in no distress RESPIRATORY SYSTEM: Unlabored breathing , decreased breath sounds at bases HEART: S1 S2 regular rate and rhythm , ABDOMEN: Soft , no tenderness EXTREMITIES: Left redness has decreased - Labs CBC & Chem 7: 02/11/25 03:20 02/11/25 03:20 Labs: Abnormal Lab Results - Last 24 Hours (Table) 02/11/25 Range/Units 03:20 Procalcitonin 4.83 H (0.02-0.50) ng/mL Microbiology - Last 24 Hours (Table) 02/10/25 18:21 Blood Culture - Preliminary Blood Assessment and Plan (1) Pneumonia Current Visit: Yes Status: Acute Code(s): J18.9 - PNEUMONIA, UNSPECIFIED ORGANISM SNOMED Code(s): 291933313 (2) Left leg cellulitis Current Visit: Yes Status: Acute Code(s): L03.116 - CELLULITIS OF LEFT LOWER LIMB SNOMED Code(s): 85144775037747491 (3) Sepsis Current Visit: Yes Status: Acute Code(s): A41.9 - SEPSIS, UNSPECIFIED ORGANISM SNOMED Code(s): 83186161 Plan: 1patient presented hospital with sepsis in this patient noted a fever elevated white count meeting criteria for SIRS source could be left lower extremity cellulitis and this patient did have diffuse swelling redness plus minus a component of pneumonia with predominantly respiratory symptom or shortness of breath or cough however initial chest x-ray did not show any acute infiltrate 2-patient did have resolution of his fever white count is trending down cultures are currently pending 3antibiotic has been adjusted to Rocephin concern for possible component of pneumonia to continue while waiting for the culture to finalize Dictation was produced using [employer] dictation software. please excuse any grammatical, word or spelling errors. Time with Patient: Less than 30
[2025-02-12] MEDS: guaiFENesin 600 MG TABLET.ER PO SCH (14:01)
--- NOTE | 2025-02-12 16:26 | P.PN ---
Progress Note - Text Progress Note Date: 02/12/25 Chief Complaint: Cough fever pleasant 59 years old male ,Has a history of COPD, obstructive sleep apnea had a UPPP. Osteoarthritis in multiple joints especially the knees. chronically short of breath. Baseline uses crutches Presented with shortness of breath. Chills. Fever. Had a fever of 104 in the ER. Has a cough. Decreased appetite. Tired. Nasal congestion. February 12: Admitted with pneumonia. Sepsis. Possible left leg cellulitis. On ceftriaxone. Still having congested cough. Eating fair. Have the patient sit up in the chair. Active Medications Acetaminophen (Acetaminophen Tab 325 Mg Tab) 650 mg PO Q6HR PRN PRN Reason: Fever Last Admin: 02/12/25 14:09 Dose: 650 mg Acetazolamide (Acetazolamide 250 Mg Tab) 250 mg PO BID [facility] Last Admin: 02/12/25 09:38 Dose: 250 mg Albuterol Sulfate (Albuterol Nebulized 2.5 Mg/3 Ml) 2.5 mg INHALATION RT-Q6H PRN PRN Reason: Shortness Of Breath Or Wheezing Apixaban (Apixaban 5 Mg Tab) 5 mg PO BID [facility]; Protocol Last Admin: 02/12/25 09:38 Dose: 5 mg Atorvastatin Calcium (Atorvastatin 10 Mg Tab) 10 mg PO HS [facility] Last Admin: 02/11/25 20:58 Dose: 10 mg Budesonide/Formoterol Fumarate (Symbicort 160-4.5 Mcg Inhaler) 2 puff INHALATION RT-BID [facility] Last Admin: 02/12/25 11:34 Dose: 2 puff Furosemide (Furosemide 80 Mg Tab) 80 mg PO BID@0900,1600 [facility] Last Admin: 02/12/25 09:39 Dose: 80 mg Guaifenesin (Guaifenesin 600 Mg Tablet.Er) 1,200 mg PO Q12HR [facility] Last Admin: 02/12/25 14:01 Dose: 1,200 mg Ceftriaxone Sodium 2 gm/ (Sodium Chloride) 50 mls @ 100 mls/hr IVPB Q24HR [facility]; Protocol Last Admin: 02/12/25 09:39 Dose: 100 mls/hr Loratadine/Pseudoephedrine Sulfate (Loratadine-Pseudoeph 5-120 Mg 1 Each Tab.Er.12h) 1 each PO Q12HR [facility] Last Admin: 02/12/25 09:40 Dose: 1 each Metoprolol Succinate (Metoprolol Succinate (Er) 50 Mg Tab.Er.24h) 50 mg PO DAILY [facility] Last Admin: 02/12/25 09:39 Dose: 50 mg Montelukast Sodium (Montelukast 10 Mg Tab) 10 mg PO [facility] Last Admin: 02/11/25 20:58 Dose: 10 mg Naloxone HCl (Naloxone 0.4 Mg/Ml 1 Ml Vial) 0.2 mg IV Q2M PRN PRN Reason: Opioid Reversal Pantoprazole Sodium (Pantoprazole 40 Mg Tablet) 40 mg PO DAILY [facility] Last Admin: 02/12/25 09:39 Dose: 40 mg Psyllium Hydrophilic Mucilloid (Psyllium Husk 100% 6 Gm Packet) 6 gm PO DAILY [facility] Last Admin: 02/12/25 09:40 Dose: 6 gm Spironolactone (Spironolactone 25 Mg Tab) 25 mg PO DAILY [facility] Last Admin: 02/12/25 09:39 Dose: 25 mg Tamsulosin HCl (Tamsulosin 0.4 Mg Cap.Er.24h) 0.4 mg PO [facility] Last Admin: 02/11/25 20:58 Dose: 0.4 mg Tiotropium Xenia (Tiotropium 2.5 Mcg Inhaler) 2 puff INHALATION RT-DAILY [facility] Last Admin: 02/12/25 11:34 Dose: 2 puff Past medical history to include: COPD, osteoarthritis, obstructive sleep apnea with UPPP, dry skin Social history: Lives with brother. Smoked for about 14 years stopped in 2006. Currently not employed. Used to work at [employer]. Physical examination: VITAL SIGNS: Afebrile, 79, 17, 90/57, 91% room air GENERAL: BMI 61.4, reclining, bouts of coughing, congested, EYES: Pupils equal. Conjunctiva normal. HEENT: External appearance of nose and ears normal, oral cavity grossly normal. NECK: JVD unable to assess masses not palpable. HEART: Heart sounds muffled; edema present LUNGS: Respiratory rate increased, distant breath sounds. wheezing ABDOMEN: Soft, nontender, liver spleen not palpable, no masses palpable. PSYCH: Alert and oriented x3; mood and affect with anxious DERMATOLOGICAL: Probable some chronic changes lower extremity NEUROLOGICAL: Cranial nerves grossly intact; no facial asymmetry, power and sensation grossly intact. DERMATOLOGICAL: Some redness to the left lower extremity. Cyanosis. Cracking of the heel. INVESTIGATIONS, reviewed in the clinical context: February 11: White count 14.9 hemoglobin 10.7 platelets 251 sodium 138 potassium 3.3 creatinine 1.2 procalcitonin 4.83 EKG tracing personally reviewed by me-normal sinus rhythm. Right bundle jaja block. Some ST-T wave changes Chest x-ray film personally reviewed by me-left basilar dense infiltrate Previous labs 2D echocardiogram: EF 55 to 60%. Severe concentric LVH. Severely increased septal wall thickness. Assessment and plan: - Left basal pneumonia suspect gram-negative organism causing sepsis IV ceftriaxone. Blood cultures pending. Hold fluids because of CHF - Possible left lower extremity cellulitis, acute IV ceftriaxone. ID following - cor pulmonale: Chronic P.o. Lasix. -Acute hypoxic respiratory failure pneumonia 2 L nasal cannula - chronic congestive heart failure exacerbation from diastolic dysfunction EF 55 to 60%: Fluid restrict 2000 cc a day Lasix . Aldactone Chronic COPD [no previous smoker] Incruse Ellipta. Advair -Metabolic alkalosis due to diuresis Diamox for 7 more days -Bilateral lower extremity xeroderma Topical care -Obesity hypoventilation syndrome/pickwickian syndrome -Obstructive sleep apnea with the patient-previously had UPPP Does not use CPAP because of panic attacks -Paroxysmal atrial fibrillation, currently in sinus rhythm . Toprol-XL 50 mg a day. Eliquis. -Hypertensive heart disease with severe LVH Lopressor -Essential hypertension Lopressor -Intertriginous candidiasis Topical nystatin powder -Bilateral knee arthralgia Tylenol when necessary -Morbid obesity BMI 61.4 Weight loss measures -Chronic lower extremity venous insufficiency with skin changes -Full code Discussed with patient. Up in a chair. Past Medical History Past Medical History: Atrial Fibrillation, Asthma, COPD, GERD/Reflux, Osteoarthritis (OA), Pneumonia, Sleep Apnea/CPAP/BIPAP Additional Past Medical History / Comment(s): JEANIE/unable to tolerate cpap, pneumonias, bronchitis, chronic lower extremity lymphedema/redness/scabs, arthritis in multiple joints/chronic pain/chronic back pain History of Any Multi-Drug Resistant Organisms: None Reported Past Surgical History: Adenoidectomy, Appendectomy, Orthopedic Surgery, Tonsillectomy Additional Past Surgical History / Comment(s): Bilateral knee arthroscopy, UVPPP, carpal tunnel surgery, right shoulder surgery, colonoscopy/benign polypectomy. Past Anesthesia/Blood Transfusion Reactions: No Reported Reaction Past Psychological History: No Psychological Hx Reported Additional Psychological History / Comment(s): Pt has a brother/nephew who live with him. Pt uses crutches to ambulate. Smoking Status: Former smoker Past Alcohol Use History: None Reported Additional Past Alcohol Use History / Comment(s): Pt started smoking in 1979 and quit smoking 12/09/2006. Past Drug Use History: None Reported
[2025-02-13 03:58] LABS: Basophils # (A) 0.02 10*3/uL (0.00-0.10); Basophils % (A) 0.3 %; Eosinophils # (A) 0.19 10*3/uL (0.04-0.35); HCT 38.8 % (39.6-50.0); HGB 11.3 g/dL (13.0-17.0); Lymphocytes # (A) 1.02 10*3/uL (0.90-5.00); Lymphocytes % (A) 15.9 %; MCH 22.6 pg (27.0-32.0); MCHC 29.1 g/dL (32.0-37.0); MCV 77.6 fL (80.0-97.0); Mean Platelet Volume 9.1 fL (9.5-12.2); Monocytes # (A) 0.61 10*3/uL (0.20-1.00); Monocytes % (A) 9.5 %; Neutrophils # (A) 4.57 10*3/uL (1.80-7.70); Platelet Count 289 10*3/uL (140-440); RDW 15.6 % (11.5-14.5); WBC 6.43 10*3/uL (4.50-10.00)
[2025-02-13 04:27] LABS: African American GFR (CKD) >90 (>60 ml/min/1.73 sqM); Anion Gap 11 mmol/L; Blood Urea Nitrogen 11 mg/dL (9-20); Calcium 8.9 mg/dL (8.4-10.2); Carbon Dioxide 30 mmol/L (22-30); Chloride 96 mmol/L (98-107); Glucose 122 mg/dL (74-99); Non-African American GFR(CKD) >90 (>60 ml/min/1.73 sqM); Potassium 3.6 mmol/L (3.5-5.1); Sodium 137 mmol/L (137-145)
--- NOTE | 2025-02-13 12:36 | P.PN ---
Subjective Progress Note Date: 02/13/25 Principal diagnosis: Reason for follow-up is fever/left leg cellulitis possible pneumonia Patient is a 59-year-old male with a past medical history significant for Atrial Fibrillation, Asthma, COPD, GERD/Reflux, Osteoarthritis (OA), Pneumonia, Sleep Apnea/CPAP/BIPAP presenting to the hospital for evaluation of increasing shortness of breath chest tightness and cough which has been productive of some whitish-yellow sputum admitted to hospital concern for left leg cellulitis with possible pneumonia. On today's evaluation that is 02/13/2025, Patient is afebrile this morning patient denies having any chest pain still complaining of some shortness of breath and cough, the patient is currently on room air, patient denies any abdominal pain no diarrhea no nausea no vomiting, redness to the left leg has resolved. Patient white count is down to 6.43, creatinine 0.91 sputum and blood cultures currently pending Objective - Vital Signs Vital signs: Vital Signs Temp 98.7 F 02/13/25 07:17 Pulse 85 02/13/25 07:17 Resp 18 02/13/25 07:17 BP 130/70 02/13/25 07:17 Pulse Ox 93 L 02/13/25 07:17 FiO2 21 02/11/25 09:05 Intake & Output 02/12/25 02/13/25 02/13/25 18:59 06:59 18:59 Other: Voiding Method Toilet # Voids 4 3 # Bowel Movements 1 - Exam GENERAL DESCRIPTION: Middle-age male lying in bed in no distress RESPIRATORY SYSTEM: Unlabored breathing , decreased breath sounds at bases HEART: S1 S2 regular rate and rhythm , ABDOMEN: Soft , no tenderness EXTREMITIES: Left redness has decreased - Labs CBC & Chem 7: 02/13/25 03:10 02/13/25 03:10 Labs: Abnormal Lab Results - Last 24 Hours (Table) 02/13/25 02/13/25 Range/Units 03:10 03:10 Hgb 11.3 L (13.0-17.0) g/dL Hct 38.8 L (39.6-50.0) % MCV 77.6 L (80.0-97.0) fL MCH 22.6 L (27.0-32.0) pg MCHC 29.1 L (32.0-37.0) g/dL RDW 15.6 H (11.5-14.5) % MPV 9.1 L (9.5-12.2) fL Chloride 96 L (98-107) mmol/L Glucose 122 H (74-99) mg/dL Microbiology - Last 24 Hours (Table) 02/11/25 21:21 Gram Stain - Preliminary Sputum Sputum Culture - Preliminary 02/10/25 18:21 Blood Culture - Preliminary Blood Assessment and Plan (1) Pneumonia Current Visit: Yes Status: Acute Code(s): J18.9 - PNEUMONIA, UNSPECIFIED ORGANISM SNOMED Code(s): 183327574 (2) Left leg cellulitis Current Visit: Yes Status: Acute Code(s): L03.116 - CELLULITIS OF LEFT LOWER LIMB SNOMED Code(s): 97669810876489584 (3) Sepsis Current Visit: Yes Status: Acute Code(s): A41.9 - SEPSIS, UNSPECIFIED ORGANISM SNOMED Code(s): 12101055 Plan: 1patient presented hospital with sepsis in this patient noted a fever elevated white count meeting criteria for SIRS source could be left lower extremity cellulitis and this patient did have diffuse swelling redness plus minus a component of pneumonia with predominantly respiratory symptom or shortness of breath or cough however initial chest x-ray did not show any acute infiltrate 2-patient did have resolution of his fever white count is trending down cultures are currently pending 3patient did have resolution of his fever white count has normalized cultures currently pending we will treat with Rocephin while waiting for the culture to finalize Dictation was produced using [employer] dictation software. please excuse any grammatical, word or spelling errors. Time with Patient: Less than 30
--- NOTE | 2025-02-13 16:58 | P.DS ---
Providers Date of admission: 02/10/25 20:37 Expected date of discharge: 02/13/25 Attending physician: Kiran Quiroz Consults: 02/10/25 20:36 Consult Physician Urgent Consulting Provider: Petra Arias Consult Reason/Comments: Acute febrile illness, leg cellulitis, sepsis Do you want consulting provider notified?: Yes Primary care physician: Geovanni Edmondson MD Hospital Course: Chief Complaint: Cough fever pleasant 59 years old male ,Has a history of COPD, obstructive sleep apnea had a UPPP. Osteoarthritis in multiple joints especially the knees. chronically short of breath. Baseline uses crutches Presented with shortness of breath. Chills. Fever. Had a fever of 104 in the ER. Has a cough. Decreased appetite. Tired. Nasal congestion. February 12: Admitted with pneumonia. Sepsis. Possible left leg cellulitis. On ceftriaxone. Still having congested cough. Eating fair. Have the patient sit up in the chair. February 13: Doing well. Respiratory symptoms much better. No fever. Normal white count. Eating well. Follow with ID Active Medications Acetaminophen (Acetaminophen Tab 325 Mg Tab) 650 mg PO Q6HR PRN PRN Reason: Fever Last Admin: 02/13/25 09:02 Dose: 650 mg Acetazolamide (Acetazolamide 250 Mg Tab) 250 mg PO BID [facility] Last Admin: 02/13/25 08:56 Dose: 250 mg Albuterol Sulfate (Albuterol Nebulized 2.5 Mg/3 Ml) 2.5 mg INHALATION RT-Q6H PRN PRN Reason: Shortness Of Breath Or Wheezing Apixaban (Apixaban 5 Mg Tab) 5 mg PO BID [facility]; Protocol Last Admin: 02/13/25 08:55 Dose: 5 mg Atorvastatin Calcium (Atorvastatin 10 Mg Tab) 10 mg PO HS [facility] Last Admin: 02/12/25 20:58 Dose: 10 mg Budesonide/Formoterol Fumarate (Symbicort 160-4.5 Mcg Inhaler) 2 puff INHALATION RT-BID [facility] Last Admin: 02/13/25 08:50 Dose: Not Given Furosemide (Furosemide 80 Mg Tab) 80 mg PO BID@0900,1600 [facility] Last Admin: 02/13/25 08:56 Dose: 80 mg Guaifenesin (Guaifenesin 600 Mg Tablet.Er) 1,200 mg PO Q12HR [facility] Last Admin: 02/13/25 08:55 Dose: 1,200 mg Ceftriaxone Sodium 2 gm/ (Sodium Chloride) 50 mls @ 100 mls/hr IVPB Q24HR [facility]; Protocol Last Admin: 02/13/25 08:55 Dose: 100 mls/hr Loratadine/Pseudoephedrine Sulfate (Loratadine-Pseudoeph 5-120 Mg 1 Each Tab.Er.12h) 1 each PO Q12HR [facility] Last Admin: 02/13/25 08:56 Dose: 1 each Metoprolol Succinate (Metoprolol Succinate (Er) 50 Mg Tab.Er.24h) 50 mg PO DAILY [facility] Last Admin: 02/13/25 08:55 Dose: 50 mg Montelukast Sodium (Montelukast 10 Mg Tab) 10 mg PO HS [facility] Last Admin: 02/12/25 20:58 Dose: 10 mg Naloxone HCl (Naloxone 0.4 Mg/Ml 1 Ml Vial) 0.2 mg IV Q2M PRN PRN Reason: Opioid Reversal Pantoprazole Sodium (Pantoprazole 40 Mg Tablet) 40 mg PO DAILY [facility] Last Admin: 02/13/25 08:55 Dose: 40 mg Psyllium Hydrophilic Mucilloid (Psyllium Husk 100% 6 Gm Packet) 6 gm PO DAILY [facility] Last Admin: 02/13/25 08:56 Dose: 6 gm Spironolactone (Spironolactone 25 Mg Tab) 25 mg PO DAILY [facility] Last Admin: 02/13/25 08:55 Dose: 25 mg Tamsulosin HCl (Tamsulosin 0.4 Mg Cap.Er.24h) 0.4 mg PO HS [facility] Last Admin: 02/12/25 20:58 Dose: 0.4 mg Tiotropium [place] (Tiotropium 2.5 Mcg Inhaler) 2 puff INHALATION RT-DAILY [facility] Last Admin: 02/13/25 08:50 Dose: Not Given Past medical history to include: COPD, osteoarthritis, obstructive sleep apnea with UPPP, dry skin Social history: Lives with brother. Smoked for about 14 years stopped in 2006. Currently not employed. Used to work at [employer]. Physical examination: VITAL SIGNS: 98.4, 79, 16, 117 x 71, 96% room air GENERAL: Reclining in bed, comfortable, EYES: Pupils equal. Conjunctiva normal. HEENT: External appearance of nose and ears normal, oral cavity grossly normal. NECK: JVD unable to assess masses not palpable. HEART: Heart sounds muffled; edema present LUNGS: Respiratory rate increased, distant breath sounds. wheezing ABDOMEN: Soft, nontender, liver spleen not palpable, no masses palpable. PSYCH: Alert and oriented x3; mood and affect with anxious DERMATOLOGICAL: Probable some chronic changes lower extremity DERMATOLOGICAL: Some redness to the left lower extremity. Cyanosis. Cracking of the heel. INVESTIGATIONS, reviewed in the clinical context: February 13: White count 6.4 hemoglobin 11.3 potassium 3.6 creatinine 0.91 February 11: White count 14.9 hemoglobin 10.7 platelets 251 sodium 138 potassium 3.3 creatinine 1.2 procalcitonin 4.83 EKG tracing personally reviewed by me-normal sinus rhythm. Right bundle jaja block. Some ST-T wave changes Chest x-ray film personally reviewed by me-left basilar dense infiltrate Previous labs 2D echocardiogram: EF 55 to 60%. Severe concentric LVH. Severely increased septal wall thickness. Assessment and plan: - Left basal pneumonia suspect gram-negative organism causing sepsis: Dennis b jolene IV ceftriaxone. Blood cultures pending. Hold fluids because of CHF - Possible left lower extremity cellulitis, acute IV ceftriaxone. ID following - cor pulmonale: Chronic P.o. Lasix. -Acute hypoxic respiratory failure pneumonia 2 L nasal cannula - chronic congestive heart failure exacerbation from diastolic dysfunction EF 55 to 60%: Fluid restrict 2000 cc a day Lasix . Aldactone Chronic COPD [no previous smoker] Incruse Ellipta. Advair -Metabolic alkalosis due to diuresis Diamox for 7 more days -Bilateral lower extremity xeroderma Topical care -Obesity hypoventilation syndrome/pickwickian syndrome -Obstructive sleep apnea with the patient-previously had UP Does not use CPAP because of panic attacks -Paroxysmal atrial fibrillation, currently in sinus rhythm . Toprol-XL 50 mg a day. Eliquis. -Hypertensive heart disease with severe LVH Lopressor -Essential hypertension Lopressor -Intertriginous candidiasis Topical nystatin powder -Bilateral knee arthralgia Tylenol when necessary -Morbid obesity BMI 61.4 Weight loss measures -Chronic lower extremity venous insufficiency with skin changes -Full code Improving. Significantly. Hopefully home tomorrow Past Medical History Past Medical History: Atrial Fibrillation, Asthma, COPD, GERD/Reflux, Osteoarthritis (OA), Pneumonia, Sleep Apnea/CPAP/BIPAP Additional Past Medical History / Comment(s): JEANIE/unable to tolerate cpap, pneumonias, bronchitis, chronic lower extremity lymphedema/redness/scabs, arthritis in multiple joints/chronic pain/chronic back pain History of Any Multi-Drug Resistant Organisms: None Reported Past Surgical History: Adenoidectomy, Appendectomy, Orthopedic Surgery, Tonsillectomy Additional Past Surgical History / Comment(s): Bilateral knee arthroscopy, UVPPP, carpal tunnel surgery, right shoulder surgery, colonoscopy/benign polypectomy. Past Anesthesia/Blood Transfusion Reactions: No Reported Reaction Past Psychological History: No Psychological Hx Reported Additional Psychological History / Comment(s): Pt has a brother/nephew who live with him. Pt uses crutches to ambulate. Smoking Status: Former smoker Past Alcohol Use History: None Reported Additional Past Alcohol Use History / Comment(s): Pt started smoking in 1979 and quit smoking 12/09/2006. Past Drug Use History: None Reported Plan - Discharge Summary Discharge Rx Participant: No New Discharge Prescriptions: No Action Spironolactone [Aldactone] 25 mg PO DAILY Umeclidinium [place] [Incruse Ellipta] 1 puff INHALATION RT-DAILY Pantoprazole [Protonix] 40 mg PO DAILY Atorvastatin [Lipitor] 10 mg PO HS Furosemide [Lasix] 80 mg PO BID Apixaban [Eliquis] 5 mg PO BID Albuterol Inhaler [Ventolin Hfa Inhaler] 2 puff INHALATION RT-Q6H PRN PRN Reason: Shortness Of Breath Or Wheezing Fluticasone Propion/Salmeterol [Advair Hfa 230-21 Mcg Inhaler] 2 puff INHALATION RT-BID Metoprolol Succinate [Toprol XL] 50 mg PO DAILY Tamsulosin [Flomax] 0.4 mg PO HS acetaZOLAMIDE [Diamox] 250 mg PO BID Montelukast [Singulair] 10 mg PO HS Discharge Medication List Spironolactone [Aldactone] 25 mg PO DAILY 12/25/20 [History] Umeclidinium [place] [Incruse Ellipta] 1 puff INHALATION RT-DAILY 12/18/23 [History] Albuterol Inhaler [Ventolin Hfa Inhaler] 2 puff INHALATION RT-Q6H PRN 02/06/24 [History] Apixaban [Eliquis] 5 mg PO BID 02/06/24 [History] Fluticasone Propion/Salmeterol [Advair Hfa 230-21 Mcg Inhaler] 2 puff INHALATION RT-BID 02/06/24 [History] Atorvastatin [Lipitor] 10 mg PO HS 01/16/25 [History] Furosemide [Lasix] 80 mg PO BID 01/16/25 [History] Metoprolol Succinate [Toprol XL] 50 mg PO DAILY 01/16/25 [History] Pantoprazole [Protonix] 40 mg PO DAILY 01/16/25 [History] Tamsulosin [Flomax] 0.4 mg PO HS 01/16/25 [History] Montelukast [Singulair] 10 mg PO HS 02/10/25 [History] acetaZOLAMIDE [Diamox] 250 mg PO BID 02/10/25 [History] Follow up Appointment(s)/Referral(s): Geovanni Edmondson MD [Primary Care Provider] - 1-2 days [facility] [NON-STAFF] - As Needed
[2025-02-14 07:51] VITALS: BP 118/65; PULSE 87; RESP 20; TEMP 97.6
[2025-02-14] MEDS: cefTRIAXone 2 GM in DEXTROSE 5% IN WATER 50 ML IVPB SCH (11:11)
--- NOTE | 2025-02-14 16:09 | P.PN ---
Progress Note - Text Progress Note Date: 02/13/25 Chief Complaint: Cough fever pleasant 59 years old male ,Has a history of COPD, obstructive sleep apnea had a UPPP. Osteoarthritis in multiple joints especially the knees. chronically short of breath. Baseline uses crutches Presented with shortness of breath. Chills. Fever. Had a fever of 104 in the ER. Has a cough. Decreased appetite. Tired. Nasal congestion. February 12: Admitted with pneumonia. Sepsis. Possible left leg cellulitis. On ceftriaxone. Still having congested cough. Eating fair. Have the patient sit up in the chair. February 13: Doing well. Respiratory symptoms much better. No fever. Normal white count. Eating well. Follow with ID Active Medications Acetaminophen (Acetaminophen Tab 325 Mg Tab) 650 mg PO Q6HR PRN PRN Reason: Fever Last Admin: 02/13/25 09:02 Dose: 650 mg Acetazolamide (Acetazolamide 250 Mg Tab) 250 mg PO BID [facility] Last Admin: 02/13/25 08:56 Dose: 250 mg Albuterol Sulfate (Albuterol Nebulized 2.5 Mg/3 Ml) 2.5 mg INHALATION RT-Q6H PRN PRN Reason: Shortness Of Breath Or Wheezing Apixaban (Apixaban 5 Mg Tab) 5 mg PO BID [facility]; Protocol Last Admin: 02/13/25 08:55 Dose: 5 mg Atorvastatin Calcium (Atorvastatin 10 Mg Tab) 10 mg PO HS [facility] Last Admin: 02/12/25 20:58 Dose: 10 mg Budesonide/Formoterol Fumarate (Symbicort 160-4.5 Mcg Inhaler) 2 puff INHALATION RT-BID [facility] Last Admin: 02/13/25 08:50 Dose: Not Given Furosemide (Furosemide 80 Mg Tab) 80 mg PO BID@0900,1600 [facility] Last Admin: 02/13/25 08:56 Dose: 80 mg Guaifenesin (Guaifenesin 600 Mg Tablet.Er) 1,200 mg PO Q12HR [facility] Last Admin: 02/13/25 08:55 Dose: 1,200 mg Ceftriaxone Sodium 2 gm/ (Sodium Chloride) 50 mls @ 100 mls/hr IVPB Q24HR [facility]; Protocol Last Admin: 02/13/25 08:55 Dose: 100 mls/hr Loratadine/Pseudoephedrine Sulfate (Loratadine-Pseudoeph 5-120 Mg 1 Each Tab.Er.12h) 1 each PO Q12HR [facility] Last Admin: 02/13/25 08:56 Dose: 1 each Metoprolol Succinate (Metoprolol Succinate (Er) 50 Mg Tab.Er.24h) 50 mg PO DAILY [facility] Last Admin: 02/13/25 08:55 Dose: 50 mg Montelukast Sodium (Montelukast 10 Mg Tab) 10 mg PO HS [facility] Last Admin: 02/12/25 20:58 Dose: 10 mg Naloxone HCl (Naloxone 0.4 Mg/Ml 1 Ml Vial) 0.2 mg IV Q2M PRN PRN Reason: Opioid Reversal Pantoprazole Sodium (Pantoprazole 40 Mg Tablet) 40 mg PO DAILY [facility] Last Admin: 02/13/25 08:55 Dose: 40 mg Psyllium Hydrophilic Mucilloid (Psyllium Husk 100% 6 Gm Packet) 6 gm PO DAILY [facility] Last Admin: 02/13/25 08:56 Dose: 6 gm Spironolactone (Spironolactone 25 Mg Tab) 25 mg PO DAILY [facility] Last Admin: 02/13/25 08:55 Dose: 25 mg Tamsulosin HCl (Tamsulosin 0.4 Mg Cap.Er.24h) 0.4 mg PO [facility] Last Admin: 02/12/25 20:58 Dose: 0.4 mg Tiotropium [place] (Tiotropium 2.5 Mcg Inhaler) 2 puff INHALATION RT-DAILY [facility] Last Admin: 02/13/25 08:50 Dose: Not Given Past medical history to include: COPD, osteoarthritis, obstructive sleep apnea with UPPP, dry skin Social history: Lives with brother. Smoked for about 14 years stopped in 2006. Currently not employed. Used to work at [employer]. Physical examination: VITAL SIGNS: 98.4, 79, 16, 117 x 71, 96% room air GENERAL: Reclining in bed, comfortable, EYES: Pupils equal. Conjunctiva normal. HEENT: External appearance of nose and ears normal, oral cavity grossly normal. NECK: JVD unable to assess masses not palpable. HEART: Heart sounds muffled; edema present LUNGS: Respiratory rate increased, distant breath sounds. wheezing ABDOMEN: Soft, nontender, liver spleen not palpable, no masses palpable. PSYCH: Alert and oriented x3; mood and affect with anxious DERMATOLOGICAL: Probable some chronic changes lower extremity DERMATOLOGICAL: Some redness to the left lower extremity. Cyanosis. Cracking of the heel. INVESTIGATIONS, reviewed in the clinical context: February 13: White count 6.4 hemoglobin 11.3 potassium 3.6 creatinine 0.91 February 11: White count 14.9 hemoglobin 10.7 platelets 251 sodium 138 potassium 3.3 creatinine 1.2 procalcitonin 4.83 EKG tracing personally reviewed by me-normal sinus rhythm. Right bundle jaja block. Some ST-T wave changes Chest x-ray film personally reviewed by me-left basilar dense infiltrate Previous labs 2D echocardiogram: EF 55 to 60%. Severe concentric LVH. Severely increased septal wall thickness. Assessment and plan: - Left basal pneumonia suspect gram-negative organism causing sepsis: Much better IV ceftriaxone. Blood cultures pending. Hold fluids because of CHF - Possible left lower extremity cellulitis, acute IV ceftriaxone. ID following - cor pulmonale: Chronic P.o. Lasix. -Acute hypoxic respiratory failure pneumonia 2 L nasal cannula - chronic congestive heart failure exacerbation from diastolic dysfunction EF 55 to 60%: Fluid restrict 2000 cc a day Lasix . Aldactone Chronic COPD [no previous smoker] Incruse Ellipta. Advair -Metabolic alkalosis due to diuresis Diamox for 7 more days -Bilateral lower extremity xeroderma Topical care -Obesity hypoventilation syndrome/pickwickian syndrome -Obstructive sleep apnea with the patient-previously had UPPP Does not use CPAP because of panic attacks -Paroxysmal atrial fibrillation, currently in sinus rhythm . Toprol-XL 50 mg a day. Eliquis. -Hypertensive heart disease with severe LVH Lopressor -Essential hypertension Lopressor -Intertriginous candidiasis Topical nystatin powder -Bilateral knee arthralgia Tylenol when necessary -Morbid obesity BMI 61.4 Weight loss measures -Chronic lower extremity venous insufficiency with skin changes -Full code Improving. Significantly. Hopefully home tomorrow Past Medical History Past Medical History: Atrial Fibrillation, Asthma, COPD, GERD/Reflux, Osteoarthritis (OA), Pneumonia, Sleep Apnea/CPAP/BIPAP Additional Past Medical History / Comment(s): JEANIE/unable to tolerate cpap, pneumonias, bronchitis, chronic lower extremity lymphedema/redness/scabs, arthritis in multiple joints/chronic pain/chronic back pain History of Any Multi-Drug Resistant Organisms: None Reported Past Surgical History: Adenoidectomy, Appendectomy, Orthopedic Surgery, Tonsillectomy Additional Past Surgical History / Comment(s): Bilateral knee arthroscopy, UVPPP, carpal tunnel surgery, right shoulder surgery, colonoscopy/benign polypectomy. Past Anesthesia/Blood Transfusion Reactions: No Reported Reaction Past Psychological History: No Psychological Hx Reported Additional Psychological History / Comment(s): Pt has a brother/nephew who live with him. Pt uses crutches to ambulate. Smoking Status: Former smoker Past Alcohol Use History: None Reported Additional Past Alcohol Use History / Comment(s): Pt started smoking in 1979 and quit smoking 12/09/2006. Past Drug Use History: None Reported
--- NOTE | 2025-02-14 16:12 | P.DS ---
Providers Date of admission: 02/10/25 20:37 Expected date of discharge: 02/14/25 Attending physician: Kiran Quiroz Consults: 02/10/25 20:36 Consult Physician Urgent Consulting Provider: Petra Arias Consult Reason/Comments: Acute febrile illness, leg cellulitis, sepsis Do you want consulting provider notified?: Yes Primary care physician: Geovanni Edmondson MD Hospital Course: Chief Complaint: Cough fever pleasant 59 years old male ,Has a history of COPD, obstructive sleep apnea had a UPPP. Osteoarthritis in multiple joints especially the knees. chronically short of breath. Baseline uses crutches Presented with shortness of breath. Chills. Fever. Had a fever of 104 in the ER. Has a cough. Decreased appetite. Tired. Nasal congestion. February 12: Admitted with pneumonia. Sepsis. Possible left leg cellulitis. On ceftriaxone. Still having congested cough. Eating fair. Have the patient sit up in the chair. February 13: Doing well. Respiratory symptoms much better. No fever. Normal white count. Eating well. Follow with ID February 14: Patient courage to well. Still coughing up some phlegm. No much better. Eating well. Patient to be discharged to complete a short course of Ceftin. Mucinex. Sputum culture positive for Streptococcus pneumoniae. Past medical history to include: COPD, osteoarthritis, obstructive sleep apnea with UPPP, dry skin Social history: Lives with brother. Smoked for about 14 years stopped in 2006. Currently not employed. Used to work at [employer]. Physical examination: VITAL SIGNS: 97.6, 87, 20, 118 x 65, 94% room air GENERAL: Up in chair comfortable, EYES: Pupils equal. Conjunctiva normal. HEENT: External appearance of nose and ears normal, oral cavity grossly normal. NECK: JVD unable to assess masses not palpable. HEART: Heart sounds muffled; edema present LUNGS: Respiratory rate increased, distant breath sounds. ABDOMEN: Soft, nontender, liver spleen not palpable, no masses palpable. PSYCH: Alert and oriented x3; mood and affect with anxious DERMATOLOGICAL: Probable some chronic changes lower extremity Some redness to the left lower extremity. Cyanosis. Cracking of the heel. INVESTIGATIONS, reviewed in the clinical context: Sputum culture: Streptococcus pneumoniae February 13: White count 6.4 hemoglobin 11.3 potassium 3.6 creatinine 0.91 February 11: White count 14.9 hemoglobin 10.7 platelets 251 sodium 138 potassium 3.3 creatinine 1.2 procalcitonin 4.83 EKG tracing personally reviewed by me-normal sinus rhythm. Right bundle jaja block. Some ST-T wave changes Chest x-ray film personally reviewed by me-left basilar dense infiltrate Previous labs 2D echocardiogram: EF 55 to 60%. Severe concentric LVH. Severely increased septal wall thickness. Assessment and plan: - Left basal pneumonia, from Streptococcus pneumoniae causing sepsis: Much better IV ceftriaxone. Blood cultures pending. Hold fluids because of CHF Discharged on Ceftin 5 mg twice daily for 3 days - Possible left lower extremity cellulitis, acute IV ceftriaxone. ID following. Ceftin - cor pulmonale: Chronic P.o. Lasix. -Acute hypoxic respiratory failure pneumonia 2 L nasal cannula - chronic congestive heart failure exacerbation from diastolic dysfunction EF 55 to 60%: Fluid restrict 2000 cc a day Lasix . Aldactone Chronic COPD [no previous smoker] Incruse Ellipta. Advair -Metabolic alkalosis due to diuresis Diamox for 7 more days -Bilateral lower extremity xeroderma Topical care -Obesity hypoventilation syndrome/pickwickian syndrome -Obstructive sleep apnea with the patient-previously had UPPP Does not use CPAP because of panic attacks -Paroxysmal atrial fibrillation, currently in sinus rhythm . Toprol-XL 50 mg a day. Eliquis. -Hypertensive heart disease with severe LVH Lopressor -Essential hypertension Lopressor -Intertriginous candidiasis Topical nystatin powder -Bilateral knee arthralgia Tylenol when necessary -Morbid obesity BMI 61.4 Weight loss measures -Chronic lower extremity venous insufficiency with skin changes -Full code Disposition: Home Past Medical History Past Medical History: Atrial Fibrillation, Asthma, COPD, GERD/Reflux, Osteoarthritis (OA), Pneumonia, Sleep Apnea/CPAP/BIPAP Additional Past Medical History / Comment(s): JEANIE/unable to tolerate cpap, pneum onias, bronchitis, chronic lower extremity lymphedema/redness/scabs, arthritis in multiple joints/chronic pain/chronic back pain History of Any Multi-Drug Resistant Organisms: None Reported Past Surgical History: Adenoidectomy, Appendectomy, Orthopedic Surgery, Tonsillectomy Additional Past Surgical History / Comment(s): Bilateral knee arthroscopy, UVPPP, carpal tunnel surgery, right shoulder surgery, colonoscopy/benign polypectomy. Past Anesthesia/Blood Transfusion Reactions: No Reported Reaction Past Psychological History: No Psychological Hx Reported Additional Psychological History / Comment(s): Pt has a brother/nephew who live with him. Pt uses crutches to ambulate. Smoking Status: Former smoker Past Alcohol Use History: None Reported Additional Past Alcohol Use History / Comment(s): Pt started smoking in 1979 and quit smoking 12/09/2006. Past Drug Use History: None Reported Plan - Discharge Summary Discharge Rx Participant: No New Discharge Prescriptions: New cefuroxime axetiL [Ceftin] 500 mg PO BID #6 tab guaiFENesin [Mucinex] 1,200 mg PO Q12HR #30 tab Psyllium Husk 100% [Metamucil Packet] 6 gm PO DAILY packet Continue Spironolactone [Aldactone] 25 mg PO DAILY Umeclidinium [place] [Incruse Ellipta] 1 puff INHALATION RT-DAILY Pantoprazole [Protonix] 40 mg PO DAILY Atorvastatin [Lipitor] 10 mg PO HS Furosemide [Lasix] 80 mg PO BID Apixaban [Eliquis] 5 mg PO BID Albuterol Inhaler [Ventolin Hfa Inhaler] 2 puff INHALATION RT-Q6H PRN PRN Reason: Shortness Of Breath Or Wheezing Fluticasone Propion/Salmeterol [Advair Hfa 230-21 Mcg Inhaler] 2 puff INHALATION RT-BID Metoprolol Succinate [Toprol XL] 50 mg PO DAILY Tamsulosin [Flomax] 0.4 mg PO HS acetaZOLAMIDE [Diamox] 250 mg PO BID Montelukast [Singulair] 10 mg PO HS Discharge Medication List Spironolactone [Aldactone] 25 mg PO DAILY 12/25/20 [History] Umeclidinium [place] [Incruse Ellipta] 1 puff INHALATION RT-DAILY 12/18/23 [History] Albuterol Inhaler [Ventolin Hfa Inhaler] 2 puff INHALATION RT-Q6H PRN 02/06/24 [History] Apixaban [Eliquis] 5 mg PO BID 02/06/24 [History] Fluticasone Propion/Salmeterol [Advair Hfa 230-21 Mcg Inhaler] 2 puff INHALATION RT-BID 02/06/24 [History] Atorvastatin [Lipitor] 10 mg PO HS 01/16/25 [History] Furosemide [Lasix] 80 mg PO BID 01/16/25 [History] Metoprolol Succinate [Toprol XL] 50 mg PO DAILY 01/16/25 [History] Pantoprazole [Protonix] 40 mg PO DAILY 01/16/25 [History] Tamsulosin [Flomax] 0.4 mg PO HS 01/16/25 [History] Montelukast [Singulair] 10 mg PO HS 02/10/25 [History] acetaZOLAMIDE [Diamox] 250 mg PO BID 02/10/25 [History] Psyllium Husk 100% [Metamucil Packet] 6 gm PO DAILY packet 02/14/25 [Rx] cefuroxime axetiL [Ceftin] 500 mg PO BID #6 tab 02/14/25 [Rx] guaiFENesin [Mucinex] 1,200 mg PO Q12HR #30 tab 02/14/25 [Rx] Follow up Appointment(s)/Referral(s): Geovanni Edmondson MD [Primary Care Provider] - 02/16/25 (office will call with time ) [facility] [NON-STAFF] - As Needed Discharge Disposition: HOME WITH HOME HEALTH SERVICES
--- NOTE | 2025-02-15 14:56 | P.PN ---
Subjective Progress Note Date: 02/14/25 Principal diagnosis: Reason for follow-up is fever/left leg cellulitis possible pneumonia Patient is a 59-year-old male with a past medical history significant for Atrial Fibrillation, Asthma, COPD, GERD/Reflux, Osteoarthritis (OA), Pneumonia, Sleep Apnea/CPAP/BIPAP presenting to the hospital for evaluation of increasing shortness of breath chest tightness and cough which has been productive of some whitish-yellow sputum admitted to hospital concern for left leg cellulitis with possible pneumonia. On today's evaluation that is 02/14/2025,the patient denies any fever or any chills, patient is breathing slightly comfortably on room air, the patient denies chest pain or any worsening cough, patient denies abdominal pain, no nausea vomiting or diarrhea. Patient white count 6.43 as of yesterday sputum is growing strep pneumo sensitivities pending Objective - Vital Signs Vital signs: Vital Signs Temp 97.6 F 02/14/25 07:26 Pulse 87 02/14/25 07:26 Resp 20 02/14/25 07:26 BP 118/65 02/14/25 07:26 Pulse Ox 94 L 02/14/25 09:36 FiO2 21 02/11/25 09:05 Intake & Output 02/13/25 02/14/25 02/14/25 18:59 06:59 18:59 Other: # Voids 6 1 # Bowel Movements 2 - Exam GENERAL DESCRIPTION: Middle-age male lying in bed in no distress RESPIRATORY SYSTEM: Unlabored breathing , decreased breath sounds at bases HEART: S1 S2 regular rate and rhythm , ABDOMEN: Soft , no tenderness EXTREMITIES: Left redness has decreased - Labs CBC & Chem 7: 02/13/25 03:10 02/13/25 03:10 Labs: Microbiology - Last 24 Hours (Table) 02/11/25 21:21 Gram Stain - Preliminary Sputum Sputum Culture - Preliminary Streptococcus pneumoniae 02/10/25 18:21 Blood Culture - Preliminary Blood Assessment and Plan (1) Pneumonia Status: Acute Code(s): J18.9 - PNEUMONIA, UNSPECIFIED ORGANISM SNOMED Code(s): 654159635 (2) Left leg cellulitis Status: Acute Code(s): L03.116 - CELLULITIS OF LEFT LOWER LIMB SNOMED Code(s): 61307122440667421 (3) Sepsis Status: Acute Code(s): A41.9 - SEPSIS, UNSPECIFIED ORGANISM SNOMED Code(s): 67182716 Plan: 1patient presented hospital with sepsis in this patient noted a fever elevated white count meeting criteria for SIRS source could be left lower extremity cellulitis and this patient did have diffuse swelling redness plus minus a component of pneumonia with predominantly respiratory symptom or shortness of breath or cough however initial chest x-ray did not show any acute infiltrate 2-patient did have resolution of his fever white count has normalized cultures currently growing strep pneumo with sensitivities pending continue Rocephin while waiting for the culture to finalize Dictation was produced using [employer] dictation software. please excuse any grammatical, word or spelling errors. Time with Patient: Less than 30
== END 2025-02-14 14:14 | disposition home health service (06) | DRG 871 ==
LOC: EC 18:06 → 4SSUR 20:37
PROVIDERS: ADMIT Hospitalist; ATTEND Hospitalist
DX: A40.3 Sepsis due to Streptococcus pneumoniae (principal); I50.33 Acute on chronic diastolic (congestive) heart failure; J96.01 Acute respiratory failure with hypoxia; J13 Pneumonia due to Streptococcus pneumoniae; E87.3 Alkalosis; I27.81 Cor pulmonale (chronic); E66.2 Morbid (severe) obesity with alveolar hypoventilation; B37.2 Candidiasis of skin and nail; J44.0 Chronic obstructive pulmonary disease with (acute) lower respiratory infection; I11.0 Hypertensive heart disease with heart failure; Z68.44 Body mass index [BMI] 60.0-69.9, adult; E87.1 Hypo-osmolality and hyponatremia; L03.116 Cellulitis of left lower limb; I48.0 Paroxysmal atrial fibrillation; Z11.52 Encounter for screening for COVID-19; T50.2X5A Adverse effect of carbonic-anhydrase inhibitors, benzothiadiazides and other diuretics, initial encounter; I87.2 Venous insufficiency (chronic) (peripheral); M15.9 Polyosteoarthritis, unspecified; M17.0 Bilateral primary osteoarthritis of knee; Z87.891 Personal history of nicotine dependence; Z79.01 Long term (current) use of anticoagulants; Z79.51 Long term (current) use of inhaled steroids; Z79.899 Other long term (current) drug therapy; X58.XXXA Exposure to other specified factors, initial encounter; Z87.19 Personal history of other diseases of the digestive system
CPT/HCPCS: 36415; 71045; 80048; 80053; 81003; 83605; 83880; 84145; 84484; 85025; 85610; 85730; 87040; 87070; 87205; 87636; 93005; 94640; 94760; 96361; 96365; 99291

== ENCOUNTER 2025-04-29 15:59 | Inpatient (IN) | payer MEDICARE ==
[2025-04-29 16:29] LABS: Basophils # (A) 0.04 10*3/uL (0.00-0.10); Basophils % (A) 0.3 %; Eosinophils % (A) 0.8 %; HCT 36.1 % (39.6-50.0); HGB 10.4 g/dL (13.0-17.0); Lymphocytes # (A) 0.76 10*3/uL (0.90-5.00); Lymphocytes % (A) 5.8 %; MCH 22.2 pg (27.0-32.0); MCHC 28.8 g/dL (32.0-37.0); MCV 77.1 fL (80.0-97.0); Mean Platelet Volume 9.2 fL (9.5-12.2); Monocytes # (A) 0.61 10*3/uL (0.20-1.00); Monocytes % (A) 4.7 %; Neutrophils % (A) 87.9 %; Platelet Count 287 10*3/uL (140-440); RBC 4.68 10*6/uL (4.40-5.60); RDW 17.3 % (11.5-14.5); WBC 13.07 10*3/uL (4.50-10.00)
[2025-04-29 16:38] LABS: INR 0.9 (<1.2); Partial Thromboplastin Time 25.8 sec (22.0-30.0); Prothrombin Time 10.4 sec (10.0-12.5)
[2025-04-29 16:46] LABS: ALT 11 U/L (4-49); AST 19 U/L (17-59); African American GFR (CKD) >90 (>60 ml/min/1.73 sqM); Albumin 3.6 g/dL (3.5-5.0); Alkaline Phosphatase 103 U/L (38-126); Anion Gap 10 mmol/L; Blood Urea Nitrogen 15 mg/dL (9-20); Calcium 8.3 mg/dL (8.4-10.2); Carbon Dioxide 27 mmol/L (22-30); Chloride 100 mmol/L (98-107); Glucose 203 mg/dL (74-99); Non-African American GFR(CKD) >90 (>60 ml/min/1.73 sqM); Potassium 3.6 mmol/L (3.5-5.1); Sodium 137 mmol/L (137-145); Total Bilirubin 0.4 mg/dL (0.2-1.3); Total Protein 5.9 g/dL (6.3-8.2)
[2025-04-29 16:54] LABS: NT-Pro-B-Type Natriuretic Pept 1040 pg/mL
[2025-04-29] MEDS: ASPIRIN 81 MG PO STA (16:59)
[2025-04-29] MEDS: NITROGLYCERIN OINT 1 INCH/GM PACKET TOPICAL STA (17:00)
--- NOTE | 2025-04-29 17:06 | ED ---
SOB HPI - General Chief Complaint: Shortness of Breath Stated Complaint: SURYA Time Seen by Provider: 04/29/25 16:01 Source: patient, RN notes reviewed Mode of arrival: ambulatory Limitations: no limitations - History of Present Illness Initial Comments: This is a 59-year-old male who presents to the emergency department for shortness of breath. States that this has been going on for about a week but seems to be getting worse. States that he has developed swelling in his lower extremities as well. Shortness of breath is worse when he tries to lay flat. Denies any coughing or congestion. He did start to develop chest pressure earlier today as well. Reports a history of CHF and has been compliant with diuretics. He does not wear oxygen at home. MD Complaint: shortness of breath, chest pain - Related Data Home Medications Medication Instructions Recorded Confirmed Spironolactone [Aldactone] 25 mg PO DAILY 12/25/20 02/10/25 Umeclidinium [place] [Incruse 1 puff INHALATION RT-DAILY 12/18/23 02/10/25 Ellipta] Albuterol Inhaler [Ventolin Hfa 2 puff INHALATION RT-Q6H PRN 02/06/24 02/10/25 Inhaler] Apixaban [Eliquis] 5 mg PO BID 02/06/24 02/10/25 Fluticasone Propion/Salmeterol 2 puff INHALATION RT-BID 02/06/24 02/10/25 [Advair Hfa 230-21 Mcg Inhaler] Atorvastatin [Lipitor] 10 mg PO HS 01/16/25 02/10/25 Furosemide [Lasix] 80 mg PO BID 01/16/25 02/10/25 Metoprolol Succinate [Toprol XL] 50 mg PO DAILY 01/16/25 02/10/25 Pantoprazole [Protonix] 40 mg PO DAILY 01/16/25 02/10/25 Tamsulosin [Flomax] 0.4 mg PO HS 01/16/25 02/10/25 Montelukast [Singulair] 10 mg PO HS 02/10/25 02/10/25 acetaZOLAMIDE [Diamox] 250 mg PO BID 02/10/25 02/10/25 Previous Rx's Medication Instructions Recorded Psyllium [place] 100% [Metamucil 6 gm PO DAILY packet 02/14/25 Packet] cefuroxime axetiL [Ceftin] 500 mg PO BID #6 tab 02/14/25 guaiFENesin [Mucinex] 1,200 mg PO Q12HR #30 tab 02/14/25 Allergies Allergy/AdvReac Type Severity Reaction Status Date / Time isosorbide [From Imdur] AdvReac headache & Verified 02/10/25 19:51 blurred vision Review of Systems ROS Statement: Those systems with pertinent positive or pertinent negative responses have been documented in the HPI. ROS Other: All systems not noted in ROS Statement are negative. Past Medical History Past Medical History: Atrial Fibrillation, Asthma, COPD, GERD/Reflux, Osteoarthritis (OA), Pneumonia, Sleep Apnea/CPAP/BIPAP Additional Past Medical History / Comment(s): JEANIE/unable to tolerate cpap, pneumonias, bronchitis, chronic lower extremity lymphedema/redness/scabs, arthritis in multiple joints/chronic pain/chronic back pain History of Any Multi-Drug Resistant Organisms: None Reported Past Surgical History: Adenoidectomy, Appendectomy, Orthopedic Surgery, Tonsillectomy Additional Past Surgical History / Comment(s): Bilateral knee arthroscopy, UVPPP, carpal tunnel surgery, right shoulder surgery, colonoscopy/benign polypectomy. Past Anesthesia/Blood Transfusion Reactions: No Reported Reaction Past Psychological History: No Psychological Hx Reported Smoking Status: Former smoker Past Alcohol Use History: None Reported Past Drug Use History: None Reported - Past Family History Father History Unknown: Yes Family Medical History: Cancer Additional Family Medical History / Comment(s): . Mother History Unknown: Yes Family Medical History: Deep Vein Thrombosis (DVT) General Exam Limitations: no limitations General appearance: alert, in no apparent distress Head exam: Present: atraumatic, normocephalic, normal inspection Respiratory exam: Present: decreased breath sounds, prolonged expiratory Cardiovascular Exam: Present: regular rate, normal rhythm Extremities exam: Present: other (Bilateral pitting edema) Neurological exam: Present: alert, oriented X3, CN II-XII intact Psychiatric exam: Present: normal affect, normal mood Course Vital Signs 04/29/25 04/29/25 04/29/25 16:02 16:18 16:58 Temperature 98.0 F Pulse Rate 71 64 Respiratory 18 24 22 Rate Blood Pressure 107/57 107/57 O2 Sat by Pulse 90 L 95 Oximetry 0604/29/25 04/29/25 17:35 17:54 18:03 Temperature Pulse Rate 64 64 66 Respiratory 23 Rate Blood Pressure 109/53 O2 Sat by Pulse 96 Oximetry 04/29/25 04/29/25 04/29/25 18:33 19:36 19:49 Temperature Pulse Rate 75 70 Respiratory 23 Rate Blood Pressure 95/47 O2 Sat by Pulse 92 L 90 L 87 L Oximetry 04/29/25 04/29/25 04/30/25 21:11 23:53 02:38 Temperature Pulse Rate 64 66 68 Respiratory 16 21 16 Rate Blood Pressure 99/54 96/63 119/60 O2 Sat by Pulse 93 L 94 L 95 Oximetry Medical Decision Making - Medical Decision Making This is a 59-year-old male who presents to the emergency department for shortness of breath. Was pt. sent in by a medical professional or institution? @ -No Did you speak to anyone other than the patient for history? @ -No Did you review nursing and triage notes? @ -Yes, and I agree, it is accurate with regards to the patient's symptoms. Were old charts reviewed? @ -Echocardiogram from 02/07/2024 revealing an ejection fraction of 55 to 60%. Differential Diagnosis? @ -Differential Dyspnea: Coronary syndrome, arrhythmia, tamponade, asthma, COPD, pulmonary embolism, pneumonia, pneumothorax, pulmonary effusion, anaphylaxis, diabetic ketoacidosis, flailed chest, pulmonary contusion, diaphragmatic rupture, anemia, neuromuscular, this is not meant to be an all-inclusive list. EKG interpreted by me (3pts min.)? @ -EKG interpreted by me demonstrating the following: Sinus rhythm. Ventricular rate 67 bpm, CO interval 159 ms, QRS duration 129 ms, QTc 412 ms. X-rays interpreted by me (1pt min.)? @ -Chest x-ray obtained, my interpretation identifies no localized consolidations or infiltrates. CT interpreted by me (1pt min.)? @ -Not obtained U/S interpreted by me (1pt. min.)? @ -Not obtained What testing was considered but not performed? (CT, X-rays, U/S, labs)? Why? @ -None What meds were considered but not given? Why? @ -None Did you discuss the management of the patient with other professionals? @ -Yes, Dr. Pace, who accepts the patient for admission to medicine. Did you reconcile home meds? @ -No Was smoking cessation discussed for >3mins.? @ -No Was critical care preformed (if so, how long)? @ -No Were there social determinants of health that impacted care today? How? (Home lessness, low income, unemployed, alcoholism, drug addiction, transportation, low edu. Level, literacy, decrease access to med. care, halfway, rehab)? @ -No Was there de-escalation of care discussed even if they declined? (Discuss DNR or withdrawal of care, Hospice)? @ -No What co-morbidities impacted this encounter? (DM, HTN, Smoking, COPD, CAD, Ca ncer, CVA, Hep., AIDS, mental health diagnosis, sleep apnea, morbid obesity)? @ -A-fib, asthma, COPD, CHF Was patient admitted / discharged? @ -Admitted. Lab work demonstrates mild leukocytosis with a white blood cell count of 13.07. BNP 1040. Troponin negative. COVID, influenza, and RSV testing negative. Urinalysis negative for signs of infection. Chest x-ray reveals no acute process. He was complaining of chest pressure on arrival and was given a dose of aspirin as well as nitroglycerin for both the chest pressure and CHF. While the chest x-ray was unremarkable, he did clinically appear fluid overloaded. His oxygen saturation also started to drop to 87% on room air. Patient subsequently admitted to medicine for CHF and COPD exacerbation. He was given an initial 40 mg of IV Lasix and 125 mg of IV Solu-Medrol. Scheduled and as needed breathing treatments ordered. Serial troponins ordered as well given the chest pressure. Case discussed with ED attending Dr. Sarabia. Undiagnosed new problem with uncertain prognosis? @ -None Drug Therapy requiring intensive monitoring for toxicity (Heparin, Nitro, Insulin, Cardizem)? @ -None Were any procedures done? @ -None Diagnosis/symptom? @ -CHF exacerbation, acute hypoxic respiratory failure Acute, or Chronic, or Acute on Chronic? @ -Acute Uncomplicated (without systemic symptoms) or Complicated (systemic symptoms)? @ -Complicated Side effects of treatment? @ -None Exacerbation, Progression, or Severe Exacerbation] @ -Not applicable Poses a threat to life or bodily function? @ -Yes, further respiratory compromise can lead to - Lab Data Result diagrams: 04/29/25 16:18 04/29/25 16:18 Lab Results 04/29/25 04/29/25 04/29/25 Range/Units 16:18 16:18 16:18 WBC 13.07 H (4.50-10.00) 10*3/uL RBC 4.68 (4.40-5.60) 10*6/uL Hgb 10.4 L (13.0-17.0) g/dL Hct 36.1 L (39.6-50.0) % MCV 77.1 L (80.0-97.0) fL MCH 22.2 L (27.0-32.0) pg MCHC 28.8 L (32.0-37.0) g/dL Plt Count 287 (140-440) 10*3/uL MPV 9.2 L (9.5-12.2) fL Immature Gran % (Auto) 0.5 % Neutrophils % 87.9 % Lymphocytes % 5.8 % Monocytes % 4.7 % Eosinophils % 0.8 % Basophils % 0.3 % Immature Gran # 0.06 H (0.00-0.04) 10*3/uL Neutrophils # 11.50 H (1.80-7.70) 10*3/uL Lymphocytes # 0.76 L (0.90-5.00) 10*3/uL Monocytes # 0.61 (0.20-1.00) 10*3/uL Eosinophils # 0.10 (0.04-0.35) 10*3/uL Basophils # 0.04 (0.00-0.10) 10*3/uL PT 10.4 (10.0-12.5) sec INR 0.9 (<1.2) APTT 25.8 (22.0-30.0) sec Sodium 137 (137-145) mmol/L Potassium 3.6 (3.5-5.1) mmol/L Chloride 100 (98-107) mmol/L Carbon Dioxide 27 (22-30) mmol/L Anion Gap 10 mmol/L BUN 15 (9-20) mg/dL Creatinine 0.76 (0.66-1.25) mg/dL Est GFR (CKD-EPI)AfAm >90 (>60 ml/min/1.73 sqM) Est GFR (CKD-EPI)NonAf >90 (>60 ml/min/1.73 sqM) Glucose 203 H (74-99) mg/dL Plasma Lactic Acid Dionicio (0.7-2.0) mmol/L Calcium 8.3 L (8.4-10.2) mg/dL Magnesium 2.0 (1.6-2.3) mg/dL Total Bilirubin 0.4 (0.2-1.3) mg/dL AST 19 (17-59) U/L ALT 11 (4-49) U/L Alkaline Phosphatase 103 (38-126) U/L Troponin I (0.000-0.034) ng/mL NT-Pro-B Natriuret Pep 1040 pg/mL Total Protein 5.9 L (6.3-8.2) g/dL Albumin 3.6 (3.5-5.0) g/dL Urine Color Urine Appearance (Clear) Urine pH (5.0-8.0) Ur Specific [place] (1.001-1.035) Urine Protein (Negative) Urine Glucose (UA) (Negative) Urine Ketones (Negative) Urine Blood (Negative) Urine Nitrite (Negative) Urine Bilirubin (Negative) Urine Urobilinogen (<2.0) mg/dL Ur Leukocyte Esterase (Negative) Influenza Type A (PCR) (Not Detectd) Influenza Type B (PCR) (Not Detectd) RSV (PCR) (Not Detectd) SARS-CoV-2 (PCR) (Not Detectd) 04/29/25 04/29/25 04/29/25 Range/Units 16:18 16:18 16:31 WBC (4.50-10.00) 10*3/uL RBC (4.40-5.60) 10*6/uL Hgb (13.0-17.0) g/dL Hct (39.6-50.0) % MCV (80.0-97.0) fL MCH (27.0-32.0) pg MCHC (32.0-37.0) g/dL Plt Count (140-440) 10*3/uL MPV (9.5-12.2) fL Immature Gran % (Auto) % Neutrophils % % Lymphocytes % % Monocytes % % Eosinophils % % Basophils % % Immature Gran # (0.00-0.04) 10*3/uL Neutrophils # (1.80-7.70) 10*3/uL Lymphocytes # (0.90-5.00) 10*3/uL Monocytes # (0.20-1.00) 10*3/uL Eosinophils # (0.04-0.35) 10*3/uL Basophils # (0.00-0.10) 10*3/uL PT (10.0-12.5) sec INR (<1.2) APTT (22.0-30.0) sec Sodium (137-145) mmol/L Potassium (3.5-5.1) mmol/L Chloride (98-107) mmol/L Carbon Dioxide (22-30) mmol/L Anion Gap mmol/L BUN (9-20) mg/dL Creatinine (0.66-1.25) mg/dL Est GFR (CKD-EPI)AfAm (>60 ml/min/1.73 sqM) Est GFR (CKD-EPI)NonAf (>60 ml/min/1.73 sqM) Glucose (74-99) mg/dL Plasma Lactic Acid Dionicio 1.8 (0.7-2.0) mmol/L Calcium (8.4-10.2) mg/dL Magnesium (1.6-2.3) mg/dL Total Bilirubin (0.2-1.3) mg/dL AST (17-59) U/L ALT (4-49) U/L Alkaline Phosphatase (38-126) U/L Troponin I <0.012 (0.000-0.034) ng/mL NT-Pro-B Natriuret Pep pg/mL Total Protein (6.3-8.2) g/dL Albumin (3.5-5.0) g/dL Urine Color Urine Appearance (Clear) Urine pH (5.0-8.0) Ur Specific [place] (1.001-1.035) Urine Protein (Negative) Urine Glucose (UA) (Negative) Urine Ketones (Negative) Urine Blood (Negative) Urine Nitrite (Negative) Urine Bilirubin (Negative) Urine Urobilinogen (<2.0) mg/dL Ur Leukocyte Esterase (Negative) Influenza Type A (PCR) Not Detected (Not Detectd) Influenza Type B (PCR) Not Detected (Not Detectd) RSV (PCR) Not Detected (Not Detectd) SARS-CoV-2 (PCR) Not Detected (Not Detectd) 04/29/25 Range/Units 17:35 WBC (4.50-10.00) 10*3/uL RBC (4.40-5.60) 10*6/uL Hgb (13.0-17.0) g/dL Hct (39.6-50.0) % MCV (80.0-97.0) fL MCH (27.0-32.0) pg MCHC (32.0-37.0) g/dL Plt Count (140-440) 10*3/uL MPV (9.5-12.2) fL Immature Gran % (Auto) % Neutrophils % % Lymphocytes % % Monocytes % % Eosinophils % % Basophils % % Immature Gran # (0.00-0.04) 10*3/uL Neutrophils # (1.80-7.70) 10*3/uL Lymphocytes # (0.90-5.00) 10*3/uL Monocytes # (0.20-1.00) 10*3/uL Eosinophils # (0.04-0.35) 10*3/uL Basophils # (0.00-0.10) 10*3/uL PT (10.0-12.5) sec INR (<1.2) APTT (22.0-30.0) sec Sodium (137-145) mmol/L Potassium (3.5-5.1) mmol/L Chloride (98-107) mmol/L Carbon Dioxide (22-30) mmol/L Anion Gap mmol/L BUN (9-20) mg/dL Creatinine (0.66-1.25) mg/dL Est GFR (CKD-EPI)AfAm (>60 ml/min/1.73 sqM) Est GFR (CKD-EPI)NonAf (>60 ml/min/1.73 sqM) Glucose (74-99) mg/dL Plasma Lactic Acid Dionicio (0.7-2.0) mmol/L Calcium (8.4-10.2) mg/dL Magnesium (1.6-2.3) mg/dL Total Bilirubin (0.2-1.3) mg/dL AST (17-59) U/L ALT (4-49) U/L Alkaline Phosphatase (38-126) U/L Troponin I (0.000-0.034) ng/mL NT-Pro-B Natriuret Pep pg/mL Total Protein (6.3-8.2) g/dL Albumin (3.5-5.0) g/dL Urine Color Colorless Urine Appearance Clear (Clear) Urine pH 5.5 (5.0-8.0) Ur Specific [place] 1.012 (1.001-1.035) Urine Protein Negative (Negative) Urine Glucose (UA) Negative (Negative) Urine Ketones Negative (Negative) Urine Blood Negative (Negative) Urine Nitrite Negative (Negative) Urine Bilirubin Negative (Negative) Urine Urobilinogen <2.0 (<2.0) mg/dL Ur Leukocyte Esterase Negative (Negative) Influenza Type A (PCR) (Not Detectd) Influenza Type B (PCR) (Not Detectd) RSV (PCR) (Not Detectd) SARS-CoV-2 (PCR) (Not Detectd) - Radiology Data Radiology results: report reviewed, image reviewed Disposition Clinical Impression: CHF exacerbation, Acute hypoxic respiratory failure Disposition: ADMITTED IP TO THIS HOSP
--- NOTE | 2025-04-29 17:07 | XR ---
EXAMINATION TYPE: XR chest 2V DATE OF EXAM: 04/29/2025 4:54 PM COMPARISON: Chest radiograph 02/10/2035. CLINICAL INDICATION: Male, 59 years old with history of difficulty breathing; [facility] TECHNIQUE: XR chest 2V Frontal and lateral views of the chest. FINDINGS: Lungs/Pleura: There is no evidence of pleural effusion, focal consolidation, or pneumothorax. Pulmonary vascularity: Unremarkable. Heart/mediastinum: Cardiomediastinal silhouette is prominent in size. Musculoskeletal: No acute osseous pathology. Other findings: None IMPRESSION: No acute cardiopulmonary disease/process. [facility], , 04/29/2025 5:05 PM
[2025-04-29 17:24] LABS: Influenza A Not Detected (Not Detectd); Influenza B Not Detected (Not Detectd); RSV Not Detected (Not Detectd)
[2025-04-29] MEDS: FUROSEMIDE 10 MG/ML 4 ML VIAL IV STA (17:37)
[2025-04-29] MEDS: IPRATROPIUM-ALBUTEROL 3 ML NEB INHALATION STA (17:52)
[2025-04-29 18:19] LABS: Appearance,Urine Clear (Clear); Bilirubin,Urine Negative (Negative); Blood,Urine Negative (Negative); Color,Urine Colorless; Glucose,Urine (UA) Negative (Negative); Ketones,Urine Negative (Negative); Leukocyte Esterase,Urine Negative (Negative); Nitrite,Urine Negative (Negative); PH, Urine 5.5 (5.0-8.0); Protein,Urine Negative (Negative); Specific Gravity,Urine 1.012 (1.001-1.035); Urobilinogen,Urine <2.0 mg/dL (<2.0)
[2025-04-29] MEDS: HYDROcodone/APAP 7.5-325MG 1 EACH TAB PO ONE (19:46)
[2025-04-29] MEDS ORDERED: ACETAMINOPHEN TAB 325 MG TAB PO PRN (20:17)
[2025-04-29] MEDS ORDERED: NALOXONE 0.4 MG/ML 1 ML VIAL IV PRN (20:17)
[2025-04-29] MEDS ORDERED: ONDANSETRON 4 MG/2 ML VIAL IVP PRN (20:17)
[2025-04-29] MEDS: methylPREDNISolone SOD SUCCI 125 MG/2 ML VIAL IV STA (20:50)
--- NOTE | 2025-04-30 02:06 | P.HPIM ---
History of Present Illness H&P Date: 04/29/25 Chief Complaint: Trouble breathing and swollen leg 59-year-old male with congestive heart failure patient who has been sick for about a week. he was advised by her home nurse to come to the hospital if she didn't get better. His left leg suddenly became swollen and tender. he reports upper respiratory issues including cough and pressure on the chest. he has been experiencing frequent urination, going every 15-20 minutes at home. His oxygen levels were noted to be low. he mentions some discomfort in his belly all the time. Red dots on his skin that are sometimes itchy were also noted. Patient is on Lasix and Spironolactone, suggesting possible history of heart failure or hypertension. lives at home. he uses a lift chair that she spends a lot of time in. review of systems Pertinent positives as noted in HPI. All other systems were reviewed and are negative Respiratory: Positive for cough and chest pressure. Denies shortness of breath. Cardiovascular: Positive for leg swelling (left leg). Genitourinary: Frequent urination (every 15-20 minutes). Gastrointestinal: Reports some discomfort in belly all the time. Skin: Red dots present, sometimes itchy. Constitutional: Reports feeling hot and cold. on exam Constitutional: No acute distress, conversant, pleasant Eyes: Anicteric sclerae, moist conjunctiva, Pupils equal round reactive to light Lungs: Diminished breath sounds throughout Clear to percussion Normal respiratory effort, no accessory muscle use Cardiovascular: Heart regular in rate and rhythm, No murmurs, gallops, or rubs Close 1 peripheral leg edema left leg Abdominal: Soft, obese limiting exam Nontender, no guarding, rebound or rigidity Abdomen moving with respiration Normoactive bowel sounds Extremities: Chronic dermatitis skin changes of the left leg no digital cyanosis No clubbing Pedal pulses intact and symmetrical Radial pulses intact and symmetrical No calf tenderness Psychiatric: Alert and oriented to person, place and time Appropriate affect fair judgement Neuro Muscles Strength 4/5 in all 4 extremities Sensation to light touch grossly present throughout Cranial nerves II-XII grossly intact Past Medical History Past Medical History: Atrial Fibrillation, Asthma, COPD, GERD/Reflux, Osteoarth ritis (OA), Pneumonia, Sleep Apnea/CPAP/BIPAP Additional Past Medical History / Comment(s): JEANIE/unable to tolerate cpap, pneumonias, bronchitis, chronic lower extremity lymphedema/redness/scabs, arthritis in multiple joints/chronic pain/chronic back pain History of Any Multi-Drug Resistant Organisms: None Reported Past Surgical History: Adenoidectomy, Appendectomy, Orthopedic Surgery, Tonsillectomy Additional Past Surgical History / Comment(s): Bilateral knee arthroscopy, UVPPP, carpal tunnel surgery, right shoulder surgery, colonoscopy/benign polypectomy. Past Anesthesia/Blood Transfusion Reactions: No Reported Reaction Past Psychological History: No Psychological Hx Reported Smoking Status: Former smoker Past Alcohol Use History: None Reported Past Drug Use History: None Reported - Past Family History Father History Unknown: Yes Family Medical History: Cancer Additional Family Medical History / Comment(s): . Mother History Unknown: Yes Family Medical History: Deep Vein Thrombosis (DVT) Medications and Allergies Home Medications Medication Instructions Recorded Confirmed Type Spironolactone [Aldactone] 25 mg PO DAILY 12/25/20 02/10/25 History Umeclidinium Adrian [Incruse 1 puff INHALATION RT-DAILY 12/18/23 02/10/25 History Ellipta] Albuterol Inhaler [Ventolin Hfa 2 puff INHALATION RT-Q6H PRN 02/06/24 02/10/25 History Inhaler] Apixaban [Eliquis] 5 mg PO BID 02/06/24 02/10/25 History Fluticasone Propion/Salmeterol 2 puff INHALATION RT-BID 02/06/24 02/10/25 History [Advair Hfa 230-21 Mcg Inhaler] Atorvastatin [Lipitor] 10 mg PO HS 01/16/25 02/10/25 History Furosemide [Lasix] 80 mg PO BID 01/16/25 02/10/25 History Metoprolol Succinate [Toprol XL] 50 mg PO DAILY 01/16/25 02/10/25 History Pantoprazole [Protonix] 40 mg PO DAILY 01/16/25 02/10/25 History Tamsulosin [Flomax] 0.4 mg PO HS 01/16/25 02/10/25 History Montelukast [Singulair] 10 mg PO HS 02/10/25 02/10/25 History acetaZOLAMIDE [Diamox] 250 mg PO BID 02/10/25 02/10/25 History Psyllium Husk 100% [Metamucil 6 gm PO DAILY packet 02/14/25 Rx Packet] cefuroxime axetiL [Ceftin] 500 mg PO BID #6 tab 02/14/25 Rx guaiFENesin [Mucinex] 1,200 mg PO Q12HR #30 tab 02/14/25 Rx Allergies Allergy/AdvReac Type Severity Reaction Status Date / Time isosorbide [From Imdur] AdvReac headache & Verified 02/10/25 19:51 blurred vision Physical Exam Vitals: Vital Signs Temp Pulse Resp BP Pulse Ox 04/29/25 21:11 64 16 99/54 93 L 04/29/25 19:49 70 87 L 04/29/25 19:36 75 23 95/47 90 L 04/29/25 18:33 92 L 04/29/25 18:03 66 04/29/25 17:54 64 04/29/25 17:35 64 23 109/53 96 04/29/25 16:58 64 22 107/57 95 04/29/25 16:02 98.0 F 71 18 107/57 90 L Intake and Output 04/29/25 04/29/25 04/29/25 06:59 14:59 22:59 Other: Weight 195.045 kg Results CBC & Chem 7: 04/29/25 16:18 04/29/25 16:18 Labs: Abnormal Lab Results - Last 24 Hours (Table) 04/29/25 04/29/25 Range/Units 16:18 16:18 WBC 13.07 H (4.50-10.00) 10*3/uL Hgb 10.4 L (13.0-17.0) g/dL Hct 36.1 L (39.6-50.0) % MCV 77.1 L (80.0-97.0) fL MCH 22.2 L (27.0-32.0) pg MCHC 28.8 L (32.0-37.0) g/dL MPV 9.2 L (9.5-12.2) fL Immature Gran # 0.06 H (0.00-0.04) 10*3/uL Neutrophils # 11.50 H (1.80-7.70) 10*3/uL Lymphocytes # 0.76 L (0.90-5.00) 10*3/uL Glucose 203 H (74-99) mg/dL Calcium 8.3 L (8.4-10.2) mg/dL Total Protein 5.9 L (6.3-8.2) g/dL Assessment and Plan Assessment: 59-year-old male with CHF presents with respiratory symptoms and left leg swelling. I discussed case with ED doctor and accepted the admission for CHF exacerbation Acute hypoxic respiratory failure Morbidly obese Rule out deep Vein Thrombosis (DVT): Given the sudden onset of left leg swelling and tenderness. Negative D-dimer reduces likelihood but does not completely rule out DVT. Check venous ultrasound left leg Respiratory Infection: Upper respiratory symptoms and cough suggest a possible respiratory infection. Chest x-ray is negative no acute cardiopulmonary process Continue to monitor off antibiotics Continue supportive care Congestive Heart Failure exacerbation: History of diuretic use (Lasix, Spironolactone) suggests possible underlying heart failure. Suspected to be right-sided with leg swelling and respiratory symptoms could indicate an exacerbation. Chest x-ray no acute cardiopulmonary process Continue with diuretics as below Most recent echocardiogram showed left ventricular ejection fraction of 55-60% which was done about a year ago Morbidly obese Consider evaluation by bariatric surgery as an outpatient Microcytic anemia Patient denies any bleeding Continue to monitor hemoglobin level Check iron levels Plan: 1. Ultrasound of left leg to rule out DVT 2. Chest X-ray showed no acute cardiopulmonary process 3. Blood work reviewed showing microcytic anemia with hemoglobin of 10.4 and MCV of 77, elevated white count at 13 afebrile 4. Review and adjust current medications as needed 5. Consider echocardiogram if suspicion for heart failure remains high supplemental oxygen as needed based on oxygen saturation levels Full code DVT prophylaxis Lovenox 40 mg subcu daily
[2025-04-30] MEDS: IPRATROPIUM-ALBUTEROL 3 ML NEB INHALATION SCH (09:16)
--- NOTE | 2025-04-30 09:36 | US ---
EXAMINATION TYPE: US venous doppler duplex LE BI DATE OF EXAM: 04/30/2025 9:01 AM COMPARISON: 02/03/21 CLINICAL INDICATION: Male, 59 years old with history of possible DVT; rule out DVT, Pain TECHNIQUE: The lower extremity deep venous system is examined utilizing real time linear array sonog lanette with graded compression, color doppler sonography, and spectral doppler. SIDE PERFORMED: Bilateral FINDINGS: VESSELS IMAGED: Common Femoral Vein Deep Femoral Vein Greater Saphenous Vein * Femoral Vein Popliteal Vein Small Saphenous Vein * Proximal Calf Veins (* superficial vessels) Storeroom Attendant notes: Limited exam due to body habitus Right Leg: No evidence for DVT, Color Doppler imaging shows patency of the vessels. Spectral wavefor ms are within normal limits. Left Leg: No evidence for DVT, Color Doppler imaging shows patency of the vessels. Spectral waveform s are within normal limits. IMPRESSION: No evidence for DVT within the bilateral lower extremities imaged from the groin to the upper calves. [facility], , 04/30/2025 9:34 AM
[2025-04-30] MEDS: FUROSEMIDE 10 MG/ML 4 ML VIAL IV SCH (09:46)
[2025-04-30] MEDS: PANTOPRAZOLE 40 MG/10 ML VIAL IV SCH (09:47)
[2025-04-30 09:50] LABS: Basophils # (A) 0.02 10*3/uL (0.00-0.10); Basophils % (A) 0.1 %; HCT 39.3 % (39.6-50.0); Lymphocytes # (A) 0.55 10*3/uL (0.90-5.00); MCH 22.3 pg (27.0-32.0); MCV 79.7 fL (80.0-97.0); Mean Platelet Volume 9.1 fL (9.5-12.2); Monocytes # (A) 0.16 10*3/uL (0.20-1.00); Monocytes % (A) 1.2 %; Neutrophils # (A) 12.87 10*3/uL (1.80-7.70); Neutrophils % (A) 93.7 %; Platelet Count 265 10*3/uL (140-440); RBC 4.93 10*6/uL (4.40-5.60); RDW 17.1 % (11.5-14.5); WBC 13.74 10*3/uL (4.50-10.00)
[2025-04-30 10:11] LABS: African American GFR (CKD) >90 (>60 ml/min/1.73 sqM); Anion Gap 7 mmol/L; Blood Urea Nitrogen 16 mg/dL (9-20); Calcium 8.5 mg/dL (8.4-10.2); Carbon Dioxide 30 mmol/L (22-30); Chloride 100 mmol/L (98-107); Glucose 312 mg/dL (74-99); Magnesium 2.3 mg/dL (1.6-2.3); Non-African American GFR(CKD) >90 (>60 ml/min/1.73 sqM); Potassium 4.3 mmol/L (3.5-5.1); Sodium 137 mmol/L (137-145)
[2025-04-30] MEDS: ENOXAPARIN 60 MG/0.6 ML SYRINGE SQ SCH (12:42)
--- NOTE | 2025-04-30 14:06 | P.PN ---
Subjective Progress Note Date: 04/30/25 Subjective: Patient seen and examined at bedside. No acute events overnight. Claims that breathing is slightly improved. Pertinent positives and negatives as discussed above, a complete review of systems was performed and all other systems are negative. Vitals Signs Reviewed. General: Nontoxic, no distress, appears at stated age, morbidly obese Derm: Warm, dry bilateral lower extremity venous stasis dermatitis Head: Atraumatic, normocephalic, symmetric Eyes: EOMI, no lid lag, anicteric sclera Mouth: No lip lesion, mucus membranes moist Cardiovascular: S1S2 reg, no murmur Lungs: CTA bilateral, no rhonchi, no rales, no accessory muscle use Abdominal: Soft, nontender to palpation, no guarding, no appreciable organomegaly Ext: No gross muscle atrophy, 2+ pitting edema, no contractures Neuro: CN II-XI grossly intact, no focal neuro deficits Psych: Alert, oriented, appropriate affect Data Reviewed Today: Pertinent Labs: WBC 13.74, hemoglobin 11, MCV 79.7, platelet 265, creatinine 0.73, magnesium 2.3, troponin negative. Imaging: Venous Doppler did not show any DVT Assessment and Plan: Active: CHF exacerbation Acute hypoxic respiratory failure - Continue oral Lasix 40 IV every 12 hours, continue to monitor electrolytes - Echocardiogram pending - Continue telemetry - Patient unclear about past medical history, last echocardiogram showed LVEF 55 to 60% - Need to confirm home meds - Wean oxygen - Continued on DuoNebs 4 times daily, every 2 hours as needed as well Leukocytosis - Reactive - No signs of infection Microcytic anemia, stable - Needs outpatient follow-up with GI - Monitor CBC Morbid obesity - Outpatient weight loss program, as well as bariatric surgery referral Chronic: A-fib? COPD, not in exacerbation BPH GERD DVT ppx: Lovenox Code status: Full code Anticipated discharge place: Pending clinical course Anticipated discharge time: Pending clinical course Objective - Vital Signs Vital signs: Vital Signs Temp 97.5 F L 04/30/25 06:00 Pulse 68 04/30/25 13:32 Resp 18 04/30/25 13:32 BP 106/54 04/30/25 06:00 Pulse Ox 96 04/30/25 06:00 FiO2 Intake & Output 04/29/25 04/30/25 04/30/25 18:59 06:59 18:59 Output Total 1000 1100 Balance -1000 -1100 Weight 195.045 kg Output: Urine 1000 1100 - Labs CBC & Chem 7: 04/30/25 09:28 04/30/25 09:28 Labs: Abnormal Lab Results - Last 24 Hours (Table) 04/29/25 04/29/25 04/30/25 Range/Units 16:18 16:18 09:28 WBC 13.07 H 13.74 H (4.50-10.00) 10*3/uL Hgb 10.4 L 11.0 L (13.0-17.0) g/dL Hct 36.1 L 39.3 L (39.6-50.0) % MCV 77.1 L 79.7 L (80.0-97.0) fL MCH 22.2 L 22.3 L (27.0-32.0) pg MCHC 28.8 L 28.0 L (32.0-37.0) g/dL RDW 17.1 H (11.5-14.5) % MPV 9.2 L 9.1 L (9.5-12.2) fL Immature Gran # 0.06 H 0.14 H (0.00-0.04) 10*3/uL Neutrophils # 11.50 H 12.87 H (1.80-7.70) 10*3/uL Lymphocytes # 0.76 L 0.55 L (0.90-5.00) 10*3/uL Monocytes # 0.16 L (0.20-1.00) 10*3/uL Eosinophils # 0.00 L (0.04-0.35) 10*3/uL Glucose 203 H (74-99) mg/dL Calcium 8.3 L (8.4-10.2) mg/dL Total Protein 5.9 L (6.3-8.2) g/dL 04/30/25 Range/Units 09:28 WBC (4.50-10.00) 10*3/uL Hgb (13.0-17.0) g/dL Hct (39.6-50.0) % MCV (80.0-97.0) fL MCH (27.0-32.0) pg MCHC (32.0-37.0) g/dL RDW (11.5-14.5) % MPV (9.5-12.2) fL Immature Gran # (0.00-0.04) 10*3/uL Neutrophils # (1.80-7.70) 10*3/uL Lymphocytes # (0.90-5.00) 10*3/uL Monocytes # (0.20-1.00) 10*3/uL Eosinophils # (0.04-0.35) 10*3/uL Glucose 312 H (74-99) mg/dL Calcium (8.4-10.2) mg/dL Total Protein (6.3-8.2) g/dL
[2025-04-30] MEDS ORDERED: ALBUTEROL NEBULIZED 2.5 MG/3 ML INHALATION PRN (16:17)
[2025-04-30] MEDS: APIXABAN 5 MG TAB PO SCH (20:38)
[2025-04-30] MEDS: ATORVASTATIN 10 MG TAB PO SCH (20:38)
[2025-04-30] MEDS: MONTELUKAST 10 MG TAB PO SCH (20:38)
[2025-04-30] MEDS: TAMSULOSIN 0.4 MG CAP.ER.24H PO SCH (20:38)
[2025-04-30] MEDS: SYMBICORT 160-4.5 MCG INHALER INHALATION SCH (21:08)
[2025-04-30] MEDS: IPRATROPIUM-ALBUTEROL 3 ML NEB INHALATION PRN (21:15)
[2025-05-01] MEDS: MORPHINE SULFATE 4 MG/ML SYRINGE IV PRN (00:39)
[2025-05-01] MEDS ORDERED: LORazepam 1 MG/0.5 ML VIAL IV PRN (01:30)
[2025-05-01] MEDS ORDERED: NON FORMULARY DRUG (Umeclidinium Bromide [Incruse Ellipta] 62.5 MCG Each) INHALATION SCH (08:00)
[2025-05-01 08:17] LABS: Basophils # (A) 0.04 X 10*3/uL (0.00-0.10); Basophils % (A) 0.3 %; Eosinophils # (A) 0.03 X 10*3/uL (0.04-0.35); Eosinophils % (A) 0.2 %; HCT 36.3 % (39.6-50.0); HGB 10.1 g/dL (13.0-17.0); Lymphocytes # (A) 1.31 X 10*3/uL (0.90-5.00); Lymphocytes % (A) 9.7 %; MCH 21.9 pg (27.0-32.0); MCHC 27.8 g/dL (32.0-37.0); MCV 78.6 FL (80.0-97.0); Mean Platelet Volume 9.7 FL (9.5-12.2); Monocytes % (A) 7.4 %; NRBC Per 100 WBC 0 X 10*3/uL (0.00-0.01); Neutrophils # (A) 11.13 X 10*3/uL (1.80-7.70); Platelet Count 298 X 10*3/uL (140-440); RBC 4.62 X 10*6/uL (4.40-5.60); RDW 17.4 % (11.5-14.5); WBC 13.56 X 10*3/uL (4.50-10.00)
[2025-05-01 08:40] LABS: % Iron Saturation 2.85 (15.00-50.00); BUN/Creat Ratio 29.33 Ratio (12.00-20.00); Blood Urea Nitrogen 17.6 mg/dL (9.0-27.0); Calcium 8.2 mg/dL (8.7-10.3); Chloride 100 mmol/L (96-109); Ferritin 14.9 ng/mL (22.0-322.0); Glucose 131 mg/dL (70-110); Iron 11 UG/DL (65-175); Potassium 3.6 mmol/L (3.5-5.5); Sodium 144 mmol/L (135-145); Total Iron Binding Capacity 386 UG/DL (228-460)
[2025-05-01] MEDS: METOPROLOL SUCCINATE (ER) 50 MG TAB.ER.24H PO SCH (09:13)
[2025-05-01] MEDS: predniSONE 20 MG TAB PO SCH (09:13)
[2025-05-01] MEDS: SPIRONOLACTONE 25 MG TAB PO SCH (09:14)
[2025-05-01] MEDS: HYDROcodone/APAP 5-325MG 1 EACH TAB PO PRN (09:22)
--- NOTE | 2025-05-01 11:26 | P.PN ---
Subjective Progress Note Date: 05/01/25 Subjective: 04/30/2025patient seen and examined at bedside. No acute events overnight. Claims that breathing is slightly improved. 05/01/2025patient seen and examined at bedside. Hypotensive event overnight, now normotensive. He states his shortness of breath is unchanged from yesterday. No other complaints. Pertinent positives and negatives as discussed above, a complete review of systems was performed and all other systems are negative. Vitals Signs Reviewed. General: Nontoxic, no distress, appears at stated age, morbidly obese Derm: Warm, dry bilateral lower extremity venous stasis dermatitis Mouth: No lip lesion, mucus membranes moist Cardiovascular: S1S2 reg, no murmur Lungs: CTA bilateral, no rhonchi, no rales, no accessory muscle use Abdominal: Soft, nontender to palpation, no guarding, no appreciable organomegaly Ext: No gross muscle atrophy, 2+ pitting edema, no contractures Neuro: CN II-XI grossly intact, no focal neuro deficits Data Reviewed Today: Pertinent Labs: WBC 13.5, hemoglobin 10.1, sodium 144, potassium 3.6, glucose 131, iron 11, TIBC 386, percent saturation 2.85%, ferritin 14.9 Imaging: No new imaging Assessment and Plan: Active: CHF exacerbation Acute hypoxic respiratory failure - Begin Bumex 1 g twice daily, continue to monitor electrolytes - Echocardiogram pending - Continue telemetry - Patient unclear about past medical history, last echocardiogram showed LVEF 55 to 60% - Need to confirm home meds - Wean oxygen as tolerated - Continued on DuoNebs 4 times daily, every 2 hours as needed as well PT OT consulted Leukocytosis - Reactive - No signs of infection Iron deficiency anemia, stable begin IV Ferrlecit daily - Needs outpatient follow-up with GI - Monitor CBC Morbid obesity - Outpatient weight loss program, as well as bariatric surgery referral Chronic: A-fib? COPD, not in exacerbation BPH GERD Resume home meds once reconciled DVT ppx: Lovenox Code status: Full code Anticipated discharge place: Pending clinical course Anticipated discharge time: Pending clinical course Han Castillo MD Internal Medicine Resident, PGY1 I have seen and evaluated the patient today. Discussed with the resident and agree with the residents finding and plan as documented in the resident's note. Changes highlighted in blue font. Objective - Vital Signs Vital signs: Vital Signs Temp 97.3 F L 05/01/25 07:36 Pulse 74 05/01/25 07:36 Resp 20 05/01/25 07:36 BP 116/69 05/01/25 07:36 Pulse Ox 92 L 05/01/25 07:36 FiO2 Intake & Output 04/30/25 05/01/25 05/01/25 18:59 06:59 18:59 Output Total 2100 4000 Balance -2100 -4000 Weight 195.045 kg Output: Urine 2100 4000 Other: Voiding Method Indwelling Catheter - Labs CBC & Chem 7: 05/01/25 05:48 05/01/25 05:48 Labs: Abnormal Lab Results - Last 24 Hours (Table) 04/30/25 04/30/25 Range/Units 09:28 09:28 WBC 13.74 H (4.50-10.00) 10*3/uL Hgb 11.0 L (13.0-17.0) g/dL Hct 39.3 L (39.6-50.0) % MCV 79.7 L (80.0-97.0) fL MCH 22.3 L (27.0-32.0) pg MCHC 28.0 L (32.0-37.0) g/dL RDW 17.1 H (11.5-14.5) % MPV 9.1 L (9.5-12.2) fL Immature Gran # 0.14 H (0.00-0.04) 10*3/uL Neutrophils # 12.87 H (1.80-7.70) 10*3/uL Lymphocytes # 0.55 L (0.90-5.00) 10*3/uL Monocytes # 0.16 L (0.20-1.00) 10*3/uL Eosinophils # 0.00 L (0.04-0.35) 10*3/uL Glucose 312 H (74-99) mg/dL
[2025-05-01] MEDS: BUMETANIDE 1 MG TAB PO SCH (11:57)
[2025-05-01] MEDS: SODIUM FERRIC GLUCONAT-SUCROSE 125 MG in SODIUM CHLORIDE 0.9% 100 ML IVPB SCH (11:57)
[2025-05-02] MEDS: PANTOPRAZOLE 40 MG TABLET PO SCH (06:29)
--- NOTE | 2025-05-02 11:41 | P.DS ---
Providers Date of admission: 05/01/25 08:44 Expected date of discharge: 05/02/25 Attending physician: Estela Pace MD Primary care physician: Geovanni Edmondson MD Hospital Course: Discharge diagnoses; CHF exacerbation Acute hypoxic respiratory failure Leukocytosis Iron deficiency anemia, stable Morbid obesity A-fib? COPD, not in exacerbation BPH GERD Hospital course; Patient who has been sick for about a week. he was advised by her home nurse to come to the hospital if she didn't get better. His left leg suddenly became swollen and tender. he reports upper respiratory issues including cough and pressure on the chest. he has been experiencing frequent urination, going every 15-20 minutes at home. His oxygen levels were noted to be low. he mentions some discomfort in his belly all the time. Red dots on his skin that are sometimes itchy were also noted. During hospital stay patient was treated for acute CHF exacerbation and acute hypoxic respiratory failure. He received IV Lasix and continued on Bumex 1 g twice daily. Home O2 evaluation completed and does not need home oxygen at this time. He is discharged to home in stable condition. He will begin Bumex 1 mg twice daily, iron and vitamin C daily. Discontinue Lasix and prednisone. He will need to follow-up with his PCP in 1 to 2 days, GI in 1 to 2 weeks for JOON. Vitals Signs Reviewed. Physical exam: General: Nontoxic, no distress, appears at stated age, morbidly obese Derm: Warm, dry bilateral lower extremity venous stasis dermatitis Cardiovascular: S1S2 reg, no murmur Lungs: CTA bilateral, no rhonchi, no rales, no accessory muscle use Abdominal: Soft, nontender to palpation, no guarding, no appreciable organomegaly Ext: No gross muscle atrophy, 2+ pitting edema, no contractures Neuro: CN II-XI grossly intact, no focal neuro deficits Han Castillo MD Internal Medicine Resident, PGY1 Dictation was produced using [employer] dictation software. please excuse any grammatical, word or spelling errors. A total of 36 minutes of time were spent preparing this complex discharge summary. Patient was discharged on 05/02/2025 at 936. I have seen and evaluated the patient today. Discussed with the resident and ag ree with the residents finding and plan as documented in the resident's note. Changes highlighted in blue font. Patient Condition at Discharge: Stable Plan - Discharge Summary Discharge Rx Participant: Yes New Discharge Prescriptions: New Bumetanide [BUMEX] 1 mg PO BID@0900,1600 #120 tab Ferrous Sulfate [Feosol] 325 mg PO DAILY #120 tab Ascorbic Acid [Vitamin C] 250 mg PO DAILY #120 tab Continue Spironolactone [Aldactone] 25 mg PO DAILY Umeclidinium Lucama [Incruse Ellipta] 1 puff INHALATION RT-DAILY Atorvastatin [Lipitor] 10 mg PO HS Albuterol Nebulized [Ventolin Nebulized] 2.5 mg INHALATION RT-Q4H PRN PRN Reason: Shortness Of Breath HYDROcodone/APAP 5-325MG [[place] 5-325] 1 tab PO BID PRN PRN Reason: Pain Apixaban [Eliquis] 5 mg PO BID Fluticasone Propion/Salmeterol [Advair Hfa 230-21 Mcg Inhaler] 2 puff INHALATION RT-BID Metoprolol Succinate [Toprol XL] 50 mg PO DAILY Tamsulosin [Flomax] 0.4 mg PO HS acetaZOLAMIDE [Diamox] 250 mg PO BID Montelukast [Singulair] 10 mg PO HS Benzonatate [Tessalon Perles] 100 mg PO TID PRN PRN Reason: Cough Ergocalciferol [Vitamin D2 (1250 Mcg = 78142 Iu)] 1,250 mcg PO TROY Discontinued Furosemide [Lasix] 80 mg PO BID Doxycycline 100 mg PO BID predniSONE [Deltasone] 40 mg PO DAILY Discharge Medication List Spironolactone [Aldactone] 25 mg PO DAILY 12/25/20 [History] Umeclidinium Lucama [Incruse Ellipta] 1 puff INHALATION RT-DAILY 12/18/23 [History] Apixaban [Eliquis] 5 mg PO BID 02/06/24 [History] Fluticasone Propion/Salmeterol [Advair Hfa 230-21 Mcg Inhaler] 2 puff INHALATION RT-BID 02/06/24 [History] Atorvastatin [Lipitor] 10 mg PO HS 01/16/25 [History] Metoprolol Succinate [Toprol XL] 50 mg PO DAILY 01/16/25 [History] Tamsulosin [Flomax] 0.4 mg PO HS 01/16/25 [History] Montelukast [Singulair] 10 mg PO HS 02/10/25 [History] acetaZOLAMIDE [Diamox] 250 mg PO BID 02/10/25 [History] Albuterol Nebulized [Ventolin Nebulized] 2.5 mg INHALATION RT-Q4H PRN 04/30/25 [History] Benzonatate [Tessalon Perles] 100 mg PO TID PRN 04/30/25 [History] Ergocalciferol [Vitamin D2 (1250 Mcg = 34527 Iu)] 1,250 mcg PO TROY 04/30/25 [History] HYDROcodone/APAP 5-325MG [[place] 5-325] 1 tab PO BID PRN 04/30/25 [History] Ascorbic Acid [Vitamin C] 250 mg PO DAILY #120 tab 05/02/25 [Rx] Bumetanide [BUMEX] 1 mg PO BID@0900,1600 #120 tab 05/02/25 [Rx] Ferrous Sulfate [Feosol] 325 mg PO DAILY #120 tab 05/02/25 [Rx] Follow up Appointment(s)/Referral(s): Geovanni Edmondson MD [Primary Care Provider] - 05/04/25 (Physician will be out to see you on Wednesday. Please call office with any questions. Thank you.) Kraeen Velez MD [STAFF PHYSICIAN] - 1 Week (Please call office ) [facility] [NON-[facility]FF] - As Needed ([facility] will call you to schedule your in home nursing, physical therapy, and occupational therapy visits.) Patient Instructions/Handouts: Heart Failure (DC) Activity/Diet/Wound Care/Special Instructions: Follow up with GI, Cardiology and PCP. Begin iron, vitamin C and Bumex.
[2025-05-02 13:16] VITALS: BP 100/68; PULSE 71; RESP 16; TEMP 97.8
--- NOTE | 2025-05-06 12:07 | CDI ---
Documentation Clarification Form Date: 05/06/2025 11:53:11 AM From: Nimo Watson Phone: Admit Date: 05/01/2025 08:44:00 AM Patient Name: Alfredo Rosas Visit Number: [id number] Discharge Date: 05/02/2025 02:45:00 PM ATTENTION: The Clinical Documentation Specialists (CDI) and [facility] Coding Staff appreciate your assistance in clarifying documentation. Please respond to the clarification below the line at the bottom and electronically sign. The CDI & [facility] Coding staff will review the response and follow-up if needed. Please note: Queries are made part of the Legal Health Record. If you have any questions, please contact the author of this message via ITS. Doctor/Provider: Carlton Zuniga Your patient has the documented diagnosis of unspecified CHF throughout the Progress Notes and DCS. Additional information regarding the type and acuity of CHF is requested. History/Risk Factors: 59yo M, CHF, AHRF, JOON, reactive leukocytosis, morbid obesity, A Fib, COPD, BPH, GERD Clinical Indicators: VS/Pulse OX: 04/29/2506/ 16:02 16:18 16:58 T 98.0 UT 71 64 RR 18 24 22 BP107/57 107/57 O2 90 95 04/29/2506/ 17:35 17:54 18:03 UT 64 64 66 RR 23 BP109/53 O2 96 04/29/2506 18:33 19:36 19:49 UT 75 70 RR 23 BP95/47 O2 92 90 87 04/29/2506/ 21:11 23:53 02:38 UT 64 66 68 RR 16 21 16 BP99/54 96/63 119/60 O2 93 94 95 BNP: 1040 Most recentechocardiogramshowed left ventricular ejection fraction of 55-60% which was done about a year ago Chest x ray: Heart/mediastinum: Cardiomediastinal silhouette is prominent in size. Treatment: He received IV Lasix and continued on Bumex 1 g twice daily. Home [id number] and does not need home oxygen at this time. He is discharged to home in stable condition. He will begin Bumex 1 mg twice daily, iron and vitamin C daily. Discontinue Lasix and prednisone. He will need tofollow-upwith his PCP in 1 to 2 days, GI in 1 to 2 weeks for JOON. In your professional opinion, can you please clarify the acuity and type of CHF if known? [ ] Acute Systolic Heart Failure (reduced EF) [ ] Acute on Chronic Systolic Heart Failure (reduced EF) [ ] Acute Diastolic Heart Failure (preserved EF) [ x] Acute on Chronic Diastolic Heart Failure (preserved EF) [ ] Acute Systolic & Diastolic Heart Failure [ ] Acute on Chronic Heart Failure Systolic & Diastolic Heart Failure [ ] Other, please specify [ ] Unable to determine (Template Last Revised: December 2020) MTDD
== END 2025-05-02 14:45 | disposition home or self-care (01) | DRG 291 ==
LOC: EC 15:59 → 4SSUR 20:18 → OBSVTOIN 05-01 08:44
PROVIDERS: ADMIT Internal Medicine; ATTEND Internal Medicine
DX: I11.0 Hypertensive heart disease with heart failure (principal); I50.33 Acute on chronic diastolic (congestive) heart failure; J96.01 Acute respiratory failure with hypoxia; I95.9 Hypotension, unspecified; Z79.01 Long term (current) use of anticoagulants; E66.01 Morbid (severe) obesity due to excess calories; D50.9 Iron deficiency anemia, unspecified; I48.91 Unspecified atrial fibrillation; K21.9 Gastro-esophageal reflux disease without esophagitis; D72.828 Other elevated white blood cell count; I87.2 Venous insufficiency (chronic) (peripheral); R35.0 Frequency of micturition; N40.1 Benign prostatic hyperplasia with lower urinary tract symptoms; Z79.51 Long term (current) use of inhaled steroids; Z87.891 Personal history of nicotine dependence; Z79.899 Other long term (current) drug therapy
CPT/HCPCS: 36415; 71046; 80048; 80053; 81003; 82728; 83540; 83550; 83605; 83735; 83880; 84466; 84484; 85025; 85379; 85610; 85730; 87636; 93005; 93970; 94640; 96372; 96374; 96375; 96376; 99285

== ENCOUNTER 2025-05-21 17:45 | Inpatient (IN) | payer MEDICARE ==
--- NOTE | 2025-05-21 18:44 | ED ---
General Adult HPI - General Chief complaint: Shortness of Breath Stated complaint: Edema Time Seen by Provider: 05/21/25 17:48 Source: patient, EMS, RN notes reviewed Mode of arrival: EMS Limitations: no limitations - History of Present Illness Initial comments: Patient is a 59-year-old male present to the emergency department with concerns with dyspnea and edema. Symptoms started just today. Patient has orthopnea and some chest heaviness. Leg edema has increased and causes some discomfort. Patient does have history of similar symptoms several times previously associated with CHF - Related Data Home Medications Medication Instructions Recorded Confirmed Spironolactone [Aldactone] 25 mg PO DAILY 12/25/20 05/21/25 Umeclidinium [place] [Incruse 1 puff INHALATION RT-DAILY 12/18/23 05/21/25 Ellipta] Apixaban [Eliquis] 5 mg PO BID 02/06/24 05/21/25 Fluticasone Propion/Salmeterol 2 puff INHALATION RT-BID 02/06/24 05/21/25 [Advair Hfa 230-21 Mcg Inhaler] Atorvastatin [Lipitor] 10 mg PO HS 01/16/25 05/21/25 Metoprolol Succinate [Toprol XL] 50 mg PO DAILY 01/16/25 05/21/25 Tamsulosin [Flomax] 0.4 mg PO HS 01/16/25 05/21/25 Montelukast [Singulair] 10 mg PO HS 02/10/25 05/21/25 acetaZOLAMIDE [Diamox] 250 mg PO BID 02/10/25 05/21/25 Albuterol Nebulized [Ventolin 2.5 mg INHALATION RT-Q4H PRN 04/30/25 05/21/25 Nebulized] Benzonatate [Tessalon Perles] 100 mg PO TID PRN 04/30/25 05/21/25 Ergocalciferol [Vitamin D2 (1250 1,250 mcg PO TROY 04/30/25 05/21/25 Mcg = 83422 Iu)] HYDROcodone/APAP 5-325MG [[place] 1 tab PO BID PRN 04/30/25 05/21/25 5-325] Previous Rx's Medication Instructions Recorded Ascorbic Acid [Vitamin C] 250 mg PO DAILY #120 tab 05/02/25 Bumetanide [BUMEX] 1 mg PO BID@0900,1600 #120 tab 05/02/25 Ferrous Sulfate [Feosol] 325 mg PO DAILY #120 tab 05/02/25 Allergies Allergy/AdvReac Type Severity Reaction Status Date / Time isosorbide [From Imdur] AdvReac headache & Verified 05/21/25 20:10 blurred vision Review of Systems ROS Statement: Those systems with pertinent positive or pertinent negative responses have been documented in the HPI. ROS Other: All systems not noted in ROS Statement are negative. Constitutional: Denies: fever Eyes: Denies: eye pain ENT: Denies: ear pain Respiratory: Reports: as per HPI, dyspnea Cardiovascular: Reports: as per HPI, chest pain, orthopnea, edema Past Medical History Past Medical History: Atrial Fibrillation, Asthma, COPD, GERD/Reflux, Osteoarthritis (OA), Pneumonia, Sleep Apnea/CPAP/BIPAP Additional Past Medical History / Comment(s): JEANIE/unable to tolerate cpap, pneumonias, bronchitis, chronic lower extremity lymphedema/redness/scabs, arthritis in multiple joints/chronic pain/chronic back pain History of Any Multi-Drug Resistant Organisms: None Reported Past Surgical History: Adenoidectomy, Appendectomy, Orthopedic Surgery, Tonsillectomy Additional Past Surgical History / Comment(s): Bilateral knee arthroscopy, UVPPP, carpal tunnel surgery, right shoulder surgery, colonoscopy/benign polypectomy. Past Anesthesia/Blood Transfusion Reactions: No Reported Reaction Past Psychological History: No Psychological Hx Reported Smoking Status: Former smoker Past Alcohol Use History: None Reported Past Drug Use History: None Reported - Past Family History Father History Unknown: Yes Family Medical History: Cancer Additional Family Medical History / Comment(s): . Mother History Unknown: Yes Family Medical History: Deep Vein Thrombosis (DVT) General Exam Limitations: no limitations General appearance: alert, in no apparent distress Head exam: Present: normocephalic Eye exam: Present: normal appearance Neck exam: Present: normal inspection Respiratory exam: Present: rales (Bilateral bases) Cardiovascular Exam: Present: regular rate, normal rhythm GI/Abdominal exam: Present: soft. Absent: tenderness Extremities exam: Present: pedal edema. Absent: calf tenderness Neurological exam: Present: alert Psychiatric exam: Present: normal affect, normal mood Skin exam: Present: normal color Course Vital Signs 05/21/25 18:25 Temperature 98.3 F Pulse Rate 79 Respiratory 18 Rate Blood Pressure 103/74 O2 Sat by Pulse 96 Oximetry EKG Findings - EKG Results: EKG: interpreted by CHIVOD (Right bundle branch block. T wave inversion lead III .), sinus rhythm, normal axis Medical Decision Making - Medical Decision Making Was pt. sent in by a medical professional or institution (, [facility], [facility], urgent care, hospital, or detention...) When possible be specific @ -No Did you speak to anyone other than the patient for history (EMS, parent, family, police, friend...)? What history was obtained from this source @ -No Did you review nursing and triage notes (agree or disagree)? Why? @ -I reviewed and agree with nursing and triage notes Were old charts reviewed (outside hosp., previous admission, EMS record, old EKG, old radiological studies, urgent care reports/EKG's, detention records)? Report findings @ -Previous admission reviewed Differential Diagnosis (chest pain, altered mental status, abdominal pain women, abdominal pain men, vaginal bleeding, weakness, fever, dyspnea, syncope, headache, dizziness, GI bleed, back pain, seizure, CVA, palpatations, mental health, musculoskeletal)? @ -Differential Dyspnea: Coronary syndrome, arrhythmia, tamponade, asthma, COPD, pulmonary embolism, pneumonia, pneumothorax, pulmonary effusion, anaphylaxis, diabetic ketoacidosis, flailed chest, pulmonary contusion, diaphragmatic rupture, anemia, neuromuscular, this is not meant to be an all-inclusive list. EKG interpreted by me (3pts min.). @ -As above X-rays interpreted by me (1pt min.). @ -Chest x-ray shows cardiomegaly and CHF CT interpreted by me (1pt min.). @ -None done U/S interpreted by me (1pt. min.). @ -None done What testing was considered but not performed or refused? (CT, X-rays, U/S, labs)? Why? @ -None What meds were considered but not given or refused? Why? @ -None Did you discuss the management of the patient with other professionals (india leon i.e. , [facility], [facility], lab, RT, psych nurse, perinatal social worker, ammonium nitrate neutralizer, teacher, operations officer trust department, upper caser)? Give summary @ -Case discussed with Dr. Quiroz who will admit covering Dr. Ayers Was smoking cessation discussed for >3mins.? @ -No Was critical care preformed (if so, how long)? @ -No Were there social determinants of health that impacted care today? How? (Homelessness, low income, unemployed, alcoholism, drug addiction, transportation, low edu. Level, literacy, decrease access to med. care, halfway, rehab)? @ -No Was there de-escalation of care discussed even if they declined (Discuss DNR or withdrawal of care, Hospice)? DNR status @ -No What co-morbidities impacted this encounter? (DM, HTN, Smoking, COPD, CAD, Cancer, CVA, ARF, Chemo, Hep., AIDS, mental health diagnosis, sleep apnea, morbid obesity)? @ -Coronary artery disease and CHF history Was patient admitted / discharged? Hospital course, mention meds given and route, prescriptions, significant lab abnormalities, going to OR and other pertinent info. @ -Patient presents with chest discomfort and dyspnea/orthopnea and edema. Patient reevaluated and updated. Patient will be admitted with cardiology consult. Admission orders written. Undiagnosed new problem with uncertain prognosis? @ -No Drug Therapy requiring intensive monitoring for toxicity (Heparin, Nitro, Insulin, Cardizem)? @ -No Were any procedures done? @ -No Diagnosis/symptom? @ -CHF Acute, or Chronic, or Acute on Chronic? @ -Acute Uncomplicated (without systemic symptoms) or Complicated (systemic symptoms)? @ -Default Side effects of treatment? @ -No Exacerbation, Progression, or Severe Exacerbation? @ -No Poses a threat to life or bodily function? How? (Chest pain, [place], [place], pneumonia, PE, COPD, DKA, ARF, appy, cholecystitis, CVA, Diverticulitis, Homicidal, Suicidal, threat to staff... and all critical care pts) @ -Threat to cardiac function - Lab Data Result diagrams: 05/21/25 18:58 05/21/25 18:58 Lab Results 05/21/25 05/21/25 05/21/25 Range/Units 18:58 18:58 18:58 WBC 10.27 H (4.50-10.00) 10*3/uL RBC 4.58 (4.40-5.60) 10*6/uL Hgb 10.7 L (13.0-17.0) g/dL Hct 37.0 L (39.6-50.0) % MCV 80.8 (80.0-97.0) fL MCH 23.4 L (27.0-32.0) pg MCHC 28.9 L (32.0-37.0) g/dL Plt Count 273 (140-440) 10*3/uL MPV 9.2 L (9.5-12.2) fL Immature Gran % (Auto) 0.3 % Neutrophils % 79.2 % Lymphocytes % 11.6 % Monocytes % 6.5 % Eosinophils % 2.0 % Basophils % 0.4 % Immature Gran # 0.03 (0.00-0.04) 10*3/uL Neutrophils # 8.13 H (1.80-7.70) 10*3/uL Lymphocytes # 1.19 (0.90-5.00) 10*3/uL Monocytes # 0.67 (0.20-1.00) 10*3/uL Eosinophils # 0.21 (0.04-0.35) 10*3/uL Basophils # 0.04 (0.00-0.10) 10*3/uL PT 10.3 (10.0-12.5) sec INR 0.9 (<1.2) APTT 25.1 (22.0-30.0) sec Sodium 138 (137-145) mmol/L Potassium 3.8 (3.5-5.1) mmol/L Chloride 99 (98-107) mmol/L Carbon Dioxide 27 (22-30) mmol/L Anion Gap 12 mmol/L BUN 9 (9-20) mg/dL Creatinine 0.62 L (0.66-1.25) mg/dL Est GFR (CKD-EPI)AfAm >90 (>60 ml/min/1.73 sqM) Est GFR (CKD-EPI)NonAf >90 (>60 ml/min/1.73 sqM) Glucose 118 H (74-99) mg/dL Plasma Lactic Acid Dionicio (0.7-2.0) mmol/L Calcium 8.8 (8.4-10.2) mg/dL Magnesium 2.0 (1.6-2.3) mg/dL Total Bilirubin 0.6 (0.2-1.3) mg/dL AST 28 (17-59) U/L ALT 11 (4-49) U/L Alkaline Phosphatase 101 (38-126) U/L Troponin I (0.000-0.034) ng/mL NT-Pro-B Natriuret Pep 670 pg/mL Total Protein 5.9 L (6.3-8.2) g/dL Albumin 3.4 L (3.5-5.0) g/dL 05/21/25 05/21/25 Range/Units 18:58 18:58 WBC (4.50-10.00) 10*3/uL RBC (4.40-5.60) 10*6/uL Hgb (13.0-17.0) g/dL Hct (39.6-50.0) % MCV (80.0-97.0) fL MCH (27.0-32.0) pg MCHC (32.0-37.0) g/dL Plt Count (140-440) 10*3/uL MPV (9.5-12.2) fL Immature Gran % (Auto) % Neutrophils % % Lymphocytes % % Monocytes % % Eosinophils % % Basophils % % Immature Gran # (0.00-0.04) 10*3/uL Neutrophils # (1.80-7.70) 10*3/uL Lymphocytes # (0.90-5.00) 10*3/uL Monocytes # (0.20-1.00) 10*3/uL Eosinophils # (0.04-0.35) 10*3/uL Basophils # (0.00-0.10) 10*3/uL PT (10.0-12.5) sec INR (<1.2) APTT (22.0-30.0) sec Sodium (137-145) mmol/L Potassium (3.5-5.1) mmol/L Chloride (98-107) mmol/L Carbon Dioxide (22-30) mmol/L Anion Gap mmol/L BUN (9-20) mg/dL Creatinine (0.66-1.25) mg/dL Est GFR (CKD-EPI)AfAm (>60 ml/min/1.73 sqM) Est GFR (CKD-EPI)NonAf (>60 ml/min/1.73 sqM) Glucose (74-99) mg/dL Plasma Lactic Acid Dionicio 1.1 (0.7-2.0) mmol/L Calcium (8.4-10.2) mg/dL Magnesium (1.6-2.3) mg/dL Total Bilirubin (0.2-1.3) mg/dL AST (17-59) U/L ALT (4-49) U/L Alkaline Phosphatase (38-126) U/L Troponin I <0.012 (0.000-0.034) ng/mL NT-Pro-B Natriuret Pep pg/mL Total Protein (6.3-8.2) g/dL Albumin (3.5-5.0) g/dL Disposition Clinical Impression: CHF exacerbation Disposition: ADMITTED IP TO THIS HOSP Is patient prescribed a controlled substance at d/c from ED?: No Referrals: Geovanni Edmondson MD [Primary Care Provider] - 1-2 days Time of Disposition: 20:26
[2025-05-21] MEDS: ASPIRIN 81 MG PO STA (19:01)
[2025-05-21] MEDS: FUROSEMIDE 10 MG/ML 4 ML VIAL IV STA (19:02)
[2025-05-21 19:05] LABS: Basophils # (A) 0.04 10*3/uL (0.00-0.10); Basophils % (A) 0.4 %; Eosinophils # (A) 0.21 10*3/uL (0.04-0.35); Eosinophils % (A) 2.0 %; HCT 37.0 % (39.6-50.0); HGB 10.7 g/dL (13.0-17.0); Lymphocytes # (A) 1.19 10*3/uL (0.90-5.00); Lymphocytes % (A) 11.6 %; MCH 23.4 pg (27.0-32.0); MCHC 28.9 g/dL (32.0-37.0); MCV 80.8 fL (80.0-97.0); Monocytes # (A) 0.67 10*3/uL (0.20-1.00); Monocytes % (A) 6.5 %; Neutrophils # (A) 8.13 10*3/uL (1.80-7.70); Neutrophils % (A) 79.2 %; Platelet Count 273 10*3/uL (140-440); RBC 4.58 10*6/uL (4.40-5.60); RDW 19.9 % (11.5-14.5); WBC 10.27 10*3/uL (4.50-10.00)
[2025-05-21 19:15] LABS: INR 0.9 (<1.2); Partial Thromboplastin Time 25.1 sec (22.0-30.0); Prothrombin Time 10.3 sec (10.0-12.5)
[2025-05-21 19:27] LABS: ALT 11 U/L (4-49); African American GFR (CKD) >90 (>60 ml/min/1.73 sqM); Albumin 3.4 g/dL (3.5-5.0); Anion Gap 12 mmol/L; Blood Urea Nitrogen 9 mg/dL (9-20); Calcium 8.8 mg/dL (8.4-10.2); Carbon Dioxide 27 mmol/L (22-30); Chloride 99 mmol/L (98-107); Glucose 118 mg/dL (74-99); Non-African American GFR(CKD) >90 (>60 ml/min/1.73 sqM); Sodium 138 mmol/L (137-145); Total Protein 5.9 g/dL (6.3-8.2)
[2025-05-21 19:30] LABS: AST 28 U/L (17-59); Alkaline Phosphatase 101 U/L (38-126); Magnesium 2.0 mg/dL (1.6-2.3); Potassium 3.8 mmol/L (3.5-5.1)
[2025-05-21 19:35] LABS: NT-Pro-B-Type Natriuretic Pept 670 pg/mL
--- NOTE | 2025-05-21 20:20 | XR ---
EXAMINATION TYPE: XR chest 2V DATE OF EXAM: 05/21/2025 7:34 PM COMPARISON: Chest radiographs from 04/29/2025. CLINICAL INDICATION: Male, 59 years old with history of difficulty breathing; [facility] TECHNIQUE: XR chest 2V Frontal and lateral views of the chest. FINDINGS: Lungs/Pleura: There is no evidence of pleural effusion, focal consolidation, or pneumothorax. Pulmonary vascularity: Pulmonary vascular congestion. Heart/mediastinum: Cardiomediastinal silhouette is enlarged. Musculoskeletal: No acute osseous pathology. IMPRESSION: Cardiomegaly and mild pulmonary vascular congestion. Correlate with BNP for congestive heart failure. [facility], , 05/21/2025 8:18 PM
[2025-05-21] MEDS ORDERED: ALBUTEROL NEBULIZED 2.5 MG/3 ML INHALATION PRN (20:28)
[2025-05-21] MEDS: FUROSEMIDE 10 MG/ML 4 ML VIAL IV SCH (20:58)
[2025-05-21] MEDS: acetaZOLAMIDE 250 MG TAB PO SCH (21:04)
[2025-05-21] MEDS: BENZONATATE 100 MG CAP PO PRN (21:05)
[2025-05-21] MEDS: MONTELUKAST 10 MG TAB PO SCH (21:05)
[2025-05-21] MEDS: APIXABAN 5 MG TAB PO SCH (21:05)
[2025-05-21] MEDS: ASPIRIN 325 MG TAB PO STA (21:05)
[2025-05-21] MEDS: TAMSULOSIN 0.4 MG CAP.ER.24H PO SCH (21:05)
[2025-05-21] MEDS: ATORVASTATIN 10 MG TAB PO SCH (21:05)
[2025-05-22] MEDS ORDERED: ASPIRIN 325 MG TAB PO SCH (09:00)
[2025-05-22] MEDS: SYMBICORT 160-4.5 MCG INHALER INHALATION SCH (09:28)
[2025-05-22] MEDS: TIOTROPIUM 2.5 MCG INHALER INHALATION SCH (09:29)
[2025-05-22] MEDS: HYDROcodone/APAP 5-325MG 1 EACH TAB PO PRN (09:39)
[2025-05-22] MEDS: ASPIRIN 81 MG PO SCH (09:39)
[2025-05-22] MEDS: FERROUS SULFATE 325 MG TAB PO SCH (09:39)
[2025-05-22] MEDS: SPIRONOLACTONE 25 MG TAB PO SCH (09:40)
[2025-05-22] MEDS: ASCORBIC ACID 500 MG TAB PO SCH (09:40)
[2025-05-22] MEDS: METOPROLOL SUCCINATE (ER) 50 MG TAB.ER.24H PO SCH (09:42)
--- NOTE | 2025-05-22 10:32 | P.CRDCN ---
History of Present Illness History of present illness: HISTORY OF PRESENT ILLNESS: This is a 59-year-old male with a past medical history significant for congestive heart failure, LVH, asthma, paroxysmal atrial fibrillation, chronic kidney disease, and obstructive sleep apnea. Patient follows in the office with Dr. Alexis. We have been asked to see the patient in consultation for CHF. Patient examined at the bedside. Patient presented to the hospital with a chief complaint of SOB. Patient also reports increased LE edema. Patient was found to be in acute CHF and was started on IV lasix. Patient reports he has been compliant with his medications. However he states he is not compliant with a low-sodium diet. DIAGNOSTICS: - EKG reveals sinus mechanism with right bundle branch block. - Chest xray cardiomegaly and mild pulmonary vascular congestion. - Laboratory data: WBC 10.27. Hemoglobin 10.7. Platelet count 273. Sodium 138. Potassium 3.7. Troponin negative x 3. proBNP 670. - Current home cardiac medications include Diamox 250 mg twice a day, Aldactone 25 mg daily, metoprolol succinate 50 mg daily, Bumex 1 mg twice a day, Lipitor 10 mg at night, Eliquis 5 mg twice a day. - Most recent echocardiogram obtained in February 2024 reveals ejection fraction 55 to 60%, severe concentric LVH -Patient underwent dobutamine stress test in April 2024 which was negative for ischemia REVIEW OF SYSTEMS: At the time of my exam: CONSTITUTIONAL: Denies fever or chills. HEENT: Denies blurred vision, vision changes, or eye pain. Denies hemoptysis CARDIOVASCULAR: Denies chest pain. Denies orthopnea. Denies PND. Denies palpitations RESPIRATORY: Denies shortness of breath. GASTROINTESTINAL: Denies abdominal pain. Denies nausea or vomiting. HEMATOLOGIC: Denies bleeding disorders. GENITOURINARY: Denies any blood in urine. SKIN: Denies pruitis. Denies rash. PHYSICAL EXAM: VITAL SIGNS: Reviewed. GENERAL: Well-developed in no acute distress. HEENT: Head is normocephalic. Pupils are equal, round. Sclerae anicteric. Mucous membranes of the mouth are moist. Neck supple. No JVD or thyromegaly LUNGS: Respirations even and unlabored. Lungs diminished with bilateral crackles HEART: Regular rate and rhythm. S1 and S2 heard. ABDOMEN: Soft. Nondistended. Nontender. EXTREMITIES: Normal range of motion. No clubbing or cyanosis. Peripheral pulses intact. Bilateral lower extremity edema noted with chronic skin discoloration NEUROLOGIC: Awake and alert. Oriented x 3. ASSESSMENT: Shortness of breath Acute on chronic heart failure with preserved EF Severe concentric LVH History of asthma Paroxysmal atrial fibrillation Obstructive sleep apnea Noncompliance with low-sodium diet PLAN: Reinforced low-sodium diet with patient who verbalized understanding Obtain 2D echo to assess cardiac structure and function Continue IV Lasix 40 mg every 8 hours Daily weights, accurate intake and output, monitoring of kidney function Further recommendations per the patient course Nurse practitioner note has been reviewed by physician. Signing provider agrees with the documented findings, assessment, and plan of care documented by FORENSICS ANALYST as a scribe. Past Medical History Past Medical History: Atrial Fibrillation, Asthma, COPD, GERD/Reflux, Osteoarthritis (OA), Pneumonia, Sleep Apnea/CPAP/BIPAP Additional Past Medical History / Comment(s): JEANIE/unable to tolerate cpap, pneumonias, bronchitis, chronic lower extremity lymphedema/redness/scabs, arthritis in multiple joints/chronic pain/chronic back pain History of Any Multi-Drug Resistant Organisms: None Reported Past Surgical History: Adenoidectomy, Appendectomy, Orthopedic Surgery, Tonsillectomy Additional Past Surgical History / Comment(s): Bilateral knee arthroscopy, UVPPP, carpal tunnel surgery, right shoulder surgery, colonoscopy/benign polypectomy. Past Anesthesia/Blood Transfusion Reactions: No Reported Reaction Past Psychological History: No Psychological Hx Reported Smoking Status: Former smoker Past Alcohol Use History: None Reported Past Drug Use History: None Reported - Past Family History Father History Unknown: Yes Family Medical History: Cancer Additional Family Medical History / Comment(s): . Mother History Unknown: Yes Family Medical History: Deep Vein Thrombosis (DVT) Medications and Allergies Home Medications Medication Instructions Recorded Confirmed Type Spironolactone [Aldactone] 25 mg PO DAILY 12/25/20 05/21/25 History Umeclidinium [place] [Incruse 1 puff INHALATION RT-DAILY 12/18/23 05/21/25 History Ellipta] Apixaban [Eliquis] 5 mg PO BID 02/06/24 05/21/25 History Fluticasone Propion/Salmeterol 2 puff INHALATION RT-BID 02/06/24 05/21/25 History [Advair Hfa 230-21 Mcg Inhaler] Atorvastatin [Lipitor] 10 mg PO HS 01/16/25 05/21/25 History Metoprolol Succinate [Toprol XL] 50 mg PO DAILY 01/16/25 05/21/25 History Tamsulosin [Flomax] 0.4 mg PO HS 01/16/25 05/21/25 History Montelukast [Singulair] 10 mg PO HS 02/10/25 05/21/25 History acetaZOLAMIDE [Diamox] 250 mg PO BID 02/10/25 05/21/25 History Albuterol Nebulized [Ventolin 2.5 mg INHALATION RT-Q4H PRN 04/30/25 05/21/25 History Nebulized] Benzonatate [Tessalon Perles] 100 mg PO TID PRN 04/30/25 05/21/25 History Ergocalciferol [Vitamin D2 (1250 1,250 mcg PO TROY 04/30/25 05/21/25 History Mcg = 96778 Iu)] HYDROcodone/APAP 5-325MG [[place] 1 tab PO BID PRN 04/30/25 05/21/25 History 5-325] Ascorbic Acid [Vitamin C] 250 mg PO DAILY #120 tab 05/02/25 05/21/25 Rx Bumetanide [BUMEX] 1 mg PO BID@0900,1600 #120 tab 05/02/25 05/21/25 Rx Ferrous Sulfate [Feosol] 325 mg PO DAILY #120 tab 05/02/25 05/21/25 Rx Allergies Allergy/AdvReac Type Severity Reaction Status Date / Time isosorbide [From Imdur] AdvReac headache & Verified 05/21/25 20:10 blurred vision Physical Exam Vitals: Vital Signs Temp Pulse Resp BP Pulse Ox 05/22/25 06:49 80 16 118/77 92 L 05/22/25 02:59 73 18 103/56 95 05/21/25 22:19 71 18 105/59 95 05/21/25 18:25 98.3 F 79 18 103/74 96 Intake and Output 05/21/25 05/22/25 05/22/25 22:59 06:59 14:59 Output Total 1000 Balance -1000 Output: Urine 1000 Uretheral (Snell) 1000 Other: Weight 195.045 kg Results 05/21/25 18:58 05/21/25 18:58 Cardiac Enzymes 05/21/25 05/21/25 05/21/25 Range/Units 18:58 18:58 22:13 AST 28 (17-59) U/L Troponin I <0.012 <0.012 (0.000-0.034) ng/mL 05/22/25 Range/Units 01:01 AST (17-59) U/L Troponin I <0.012 (0.000-0.034) ng/mL Coagulation 05/21/25 Range/Units 18:58 PT 10.3 (10.0-12.5) sec APTT 25.1 (22.0-30.0) sec CBC 05/21/25 Range/Units 18:58 WBC 10.27 H (4.50-10.00) 10*3/uL RBC 4.58 (4.40-5.60) 10*6/uL Hgb 10.7 L (13.0-17.0) g/dL Hct 37.0 L (39.6-50.0) % Plt Count 273 (140-440) 10*3/uL Comprehensive Metabolic Panel 05/21/25 Range/Units 18:58 Sodium 138 (137-145) mmol/L Potassium 3.8 (3.5-5.1) mmol/L Chloride 99 (98-107) mmol/L Carbon Dioxide 27 (22-30) mmol/L BUN 9 (9-20) mg/dL Creatinine 0.62 L (0.66-1.25) mg/dL Glucose 118 H (74-99) mg/dL Calcium 8.8 (8.4-10.2) mg/dL AST 28 (17-59) U/L ALT 11 (4-49) U/L Alkaline Phosphatase 101 (38-126) U/L Total Protein 5.9 L (6.3-8.2) g/dL Albumin 3.4 L (3.5-5.0) g/dL Current Medications Generic Name Dose Route Start Last Admin Trade Name Freq PRN Reason Stop Dose Admin Hydrocodone Bitart/Acetaminophen 1 each 05/21/25 20:28 Hydrocodone/Apap 5-325mg 1 Each Tab PO BID PRN Pain Acetazolamide 250 mg 05/21/25 21:00 05/21/25 21:04 Acetazolamide 250 Mg Tab PO 250 mg BID TAMELA Administration Albuterol Sulfate 2.5 mg 05/21/25 20:28 Albuterol Nebulized 2.5 Mg/3 Ml INHALATION RT-Q4H PRN Shortness Of Breath Apixaban 5 mg 05/21/25 21:00 05/21/25 21:05 Apixaban 5 Mg Tab PO 5 mg BID TAMELA Administration Protocol Ascorbic Acid 250 mg 05/22/25 09:00 Ascorbic Acid 500 Mg Tab PO DAILY TAMELA Aspirin 325 mg 05/22/25 09:00 Aspirin 325 Mg Tab PO DAILY [facility] Atorvastatin Calcium 10 mg 05/21/25 21:00 05/21/25 21:05 Atorvastatin 10 Mg Tab PO 10 mg HS [facility] Administration Benzonatate 100 mg 05/21/25 20:28 05/21/25 21:05 Benzonatate 100 Mg Cap PO 100 mg TID PRN Administration Cough Budesonide/Formoterol Fumarate 2 puff 05/22/25 08:00 Symbicort 160-4.5 Mcg Inhaler INHALATION RT-BID [facility] Ergocalciferol 1,250 mcg 05/27/25 20:28 Ergocalciferol 1,250 Mcg (50,000 Iu) Capsule PO TROY [facility] Ferrous Sulfate 325 mg 05/22/25 09:00 Ferrous Sulfate 325 Mg Tab PO DAILY [facility] Furosemide 40 mg 05/21/25 03:00 05/22/25 02:48 Furosemide 10 Mg/Ml 4 Ml Vial IV 40 mg Q8H TAMELA Administration Metoprolol Succinate 50 mg 05/22/25 09:00 Metoprolol Succinate (Er) 50 Mg Tab.Er.24h PO DAILY [facility] Montelukast Sodium 10 mg 05/21/25 21:00 05/21/25 21:05 Montelukast 10 Mg Tab PO 10 mg HS [facility] Administration Spironolactone 25 mg 05/22/25 09:00 Spironolactone 25 Mg Tab PO DAILY [facility] Tamsulosin HCl 0.4 mg 05/21/25 21:00 05/21/25 21:05 Tamsulosin 0.4 Mg Cap.Er.24h PO 0.4 mg HS [facility] Administration Tiotropium Cantil 2 puff 05/22/25 08:00 Tiotropium 2.5 Mcg Inhaler INHALATION RT-DAILY TAMELA Intake and Output 05/21/25 05/22/25 05/22/25 22:59 06:59 14:59 Output Total 1000 Balance -1000 Output: Urine 1000 Uretheral (Snell) 1000 Other: Weight 195.045 kg 05/21/25 18:58 05/21/25 18:58
--- NOTE | 2025-05-22 18:27 | P.HPIM ---
History of Present Illness H&P Date: 05/22/25 Chief Complaint: Chest pain pleasant 59 years old male ,Has a history of COPD, obstructive sleep apnea had a UPPP. Osteoarthritis in multiple joints especially the knees. chronically short of breath. Baseline uses crutches Patient presented with increasing shortness of breath. Some chest pressure. Increasing lower extremity edema. No fever no chills. Appetite fair. Having bowel movements. Review of systems: GEN.: Tired, fever chills EYES: None HEENT: None NECK: None RESPIRATORY: As above CARDIOVASCULAR: As above GASTROINTESTINAL: No BM for 3 days GENITOURINARY: None MUSCULOSKELETAL: Joint pains LYMPHATICS: None HEMATOLOGICAL: None PSYCHIATRY: Anxious NEUROLOGICAL: None Past medical history to include: COPD, osteoarthritis, obstructive sleep apnea with UPPP, dry skin Social history: Lives with brother. Smoked for about 14 years stopped in 2006. Currently not employed. Used to work at [employer]. Physical examination: VITAL SIGNS: 98.3, 79, 18, 103 x 74, 96% on 2 L GENERAL: U reclining in bed, but short of breath EYES: Pupils equal. Conjunctiva normal. HEENT: External appearance of nose and ears normal, oral cavity grossly normal. NECK: JVD unable to assess masses not palpable. HEART: Heart sounds muffled; edema present LUNGS: Respiratory rate increased, distant breath sounds. ABDOMEN: Soft, nontender, liver spleen not palpable, no masses palpable. PSYCH: Alert and oriented x3; mood and affect with anxious DERMATOLOGICAL: Probable some chronic changes lower extremity Some redness to the left lower extremity. Cyanosis. Cracking of the heel. Calluses INVESTIGATIONS, reviewed in the clinical context: May 21: White count 10.2 hemoglobin 10.7 platelets 273 sodium 138 potassium 3.8 creatinine 0.62 Troponin I less than 0.012 x 3 proBNP 670 EKG tracing personally reviewed by me-sinus rhythm. Right bundle jaja block Chest x-ray film personally reviewed by me-portable. Underpenetrated. Previous labs 2D echocardiogram: EF 55 to 60%. Severe concentric LVH. Severely increased septal wall thickness. Assessment and plan: -Possible cor pulmonale acute on chronic IV Lasix. Fluid restriction - chronic congestive heart failure exacerbation from diastolic dysfunction EF 55 to 60%: Fluid restrict 2000 cc a day Lasix . Aldactone Chronic COPD [no previous smoker] Incruse Ellipta. Advair -Bilateral lower extremity xeroderma, xerosis Topical care -Obesity hypoventilation syndrome/pickwickian syndrome -Obstructive sleep apnea with the patient-previously had UPPP Does not use CPAP because of panic attacks -Paroxysmal atrial fibrillation, currently in sinus rhythm . Toprol-XL 50 mg a day. Eliquis. -Hypertensive heart disease with severe LVH Lopressor -Essential hypertension Lopressor -Intertriginous candidiasis Topical nystatin powder -Bilateral knee arthralgia Tylenol when necessary -Morbid obesity BMI 67.3 Weight loss measures -Chronic lower extremity venous insufficiency with skin changes Kobe wrap -Full code IV Lasix. Fluid restriction. Home medication to continue. Snell catheter was placed in the ER. To be discontinued. Bedside commode. Past Medical History Past Medical History: Atrial Fibrillation, Asthma, COPD, GERD/Reflux, Osteoar thritis (OA), Pneumonia, Sleep Apnea/CPAP/BIPAP Additional Past Medical History / Comment(s): JEANIE/unable to tolerate cpap, pneumonias, bronchitis, chronic lower extremity lymphedema/redness/scabs, arthritis in multiple joints/chronic pain/chronic back pain History of Any Multi-Drug Resistant Organisms: None Reported Past Surgical History: Adenoidectomy, Appendectomy, Orthopedic Surgery, Tonsillectomy Additional Past Surgical History / Comment(s): Bilateral knee arthroscopy, UVPPP, carpal tunnel surgery, right shoulder surgery, colonoscopy/benign polypectomy. Past Anesthesia/Blood Transfusion Reactions: No Reported Reaction Past Psychological History: No Psychological Hx Reported Additional Psychological History / Comment(s): Pt has a brother/nephew who live with him. Pt uses crutches to ambulate. Smoking Status: Former smoker Past Alcohol Use History: None Reported Additional Past Alcohol Use History / Comment(s): Pt started smoking in 1979 and quit smoking 12/09/2006. Past Drug Use History: None Reported Past Medical History Past Medical History: Atrial Fibrillation, Asthma, COPD, GERD/Reflux, Osteoarthritis (OA), Pneumonia, Sleep Apnea/CPAP/BIPAP Additional Past Medical History / Comment(s): JEANIE/unable to tolerate cpap, pneumonias, bronchitis, chronic lower extremity lymphedema/redness/scabs, arthritis in multiple joints/chronic pain/chronic back pain History of Any Multi-Drug Resistant Organisms: None Reported Past Surgical History: Adenoidectomy, Appendectomy, Orthopedic Surgery, Tonsillectomy Additional Past Surgical History / Comment(s): Bilateral knee arthroscopy, UVPPP, carpal tunnel surgery, right shoulder surgery, colonoscopy/benign polypectomy. Past Anesthesia/Blood Transfusion Reactions: No Reported Reaction Past Psychological History: No Psychological Hx Reported Additional Psychological History / Comment(s): Pt has a brother/nephew who live with him. Pt uses crutches to ambulate. Smoking Status: Former smoker Past Alcohol Use History: None Reported Additional Past Alcohol Use History / Comment(s): Pt started smoking in 1979 and quit smoking 12/09/2006. Past Drug Use History: None Reported - Past Family History Father History Unknown: Yes Family Medical History: Cancer Additional Family Medical History / Comment(s): . Mother History Unknown: Yes Family Medical History: Deep Vein Thrombosis (DVT) Medications and Allergies Home Medications Medication Instructions Recorded Confirmed Type Spironolactone [Aldactone] 25 mg PO DAILY 12/25/20 05/21/25 History Umeclidinium [place] [Incruse 1 puff INHALATION RT-DAILY 12/18/23 05/21/25 H istory Ellipta] Apixaban [Eliquis] 5 mg PO BID 02/06/24 05/21/25 History Fluticasone Propion/Salmeterol 2 puff INHALATION RT-BID 02/06/24 05/21/25 History [Advair Hfa 230-21 Mcg Inhaler] Atorvastatin [Lipitor] 10 mg PO HS 01/16/25 05/21/25 History Metoprolol Succinate [Toprol XL] 50 mg PO DAILY 01/16/25 05/21/25 History Tamsulosin [Flomax] 0.4 mg PO HS 01/16/25 05/21/25 History Montelukast [Singulair] 10 mg PO HS 02/10/25 05/21/25 History acetaZOLAMIDE [Diamox] 250 mg PO BID 02/10/25 05/21/25 History Albuterol Nebulized [Ventolin 2.5 mg INHALATION RT-Q4H PRN 04/30/25 05/21/25 History Nebulized] Benzonatate [Tessalon Perles] 100 mg PO TID PRN 04/30/25 05/21/25 History Ergocalciferol [Vitamin D2 (1250 1,250 mcg PO TROY 04/30/25 05/21/25 History Mcg = 23348 Iu)] HYDROcodone/APAP 5-325MG [[place] 1 tab PO BID PRN 04/30/25 05/21/25 History 5-325] Ascorbic Acid [Vitamin C] 250 mg PO DAILY #120 tab 05/02/25 05/21/25 Rx Bumetanide [BUMEX] 1 mg PO BID@0900,1600 #120 tab 05/02/25 05/21/25 Rx Ferrous Sulfate [Feosol] 325 mg PO DAILY #120 tab 05/02/25 05/21/25 Rx Allergies Allergy/AdvReac Type Severity Reaction Status Date / Time isosorbide [From Imdur] AdvReac headache & Verified 05/21/25 20:10 blurred vision Physical Exam Vitals: Vital Signs Temp Pulse Resp BP Pulse Ox 05/22/25 06:49 80 16 118/77 92 L 05/22/25 02:59 73 18 103/56 95 05/21/25 22:19 71 18 105/59 95 05/21/25 18:25 98.3 F 79 18 103/74 96 Intake and Output 05/21/25 05/22/25 05/22/25 22:59 06:59 14:59 Output Total 1000 Balance -1000 Output: Urine 1000 Uretheral (Snell) 1000 Other: Weight 195.045 kg 195.045 kg Results CBC & Chem 7: 05/21/25 18:58 05/21/25 18:58 Labs: Abnormal Lab Results - Last 24 Hours (Table) 05/21/25 05/21/25 Range/Units 18:58 18:58 WBC 10.27 H (4.50-10.00) 10*3/uL Hgb 10.7 L (13.0-17.0) g/dL Hct 37.0 L (39.6-50.0) % MCH 23.4 L (27.0-32.0) pg MCHC 28.9 L (32.0-37.0) g/dL MPV 9.2 L (9.5-12.2) fL Neutrophils # 8.13 H (1.80-7.70) 10*3/uL Creatinine 0.62 L (0.66-1.25) mg/dL Glucose 118 H (74-99) mg/dL Total Protein 5.9 L (6.3-8.2) g/dL Albumin 3.4 L (3.5-5.0) g/dL
[2025-05-23] MEDS: NYSTATIN 100,000 UNIT/GM POWD 15 GM TOPICAL SCH (06:06)
[2025-05-23 07:56] LABS: African American GFR (CKD) >90 (>60 ml/min/1.73 sqM); Anion Gap 5 mmol/L; Blood Urea Nitrogen 9 mg/dL (9-20); Calcium 8.3 mg/dL (8.4-10.2); Carbon Dioxide 38 mmol/L (22-30); Chloride 98 mmol/L (98-107); Glucose 124 mg/dL (74-99); Non-African American GFR(CKD) >90 (>60 ml/min/1.73 sqM); Potassium 3.4 mmol/L (3.5-5.1); Sodium 141 mmol/L (137-145)
[2025-05-23] MEDS: POTASSIUM CHLORIDE ER 20 MEQ TAB.ER PO STA (10:35)
--- NOTE | 2025-05-23 12:27 | CA ---
Transthoracic Echo Report Name: Alfredo Rosas Age: 59 Gender: M : 1965 Exam Date: 05/22/2025 15:31 Exam Location: [facility] Ht (in): 67 Wt (lb): 430 Ordering Physician: Francine Bowles Attending/Referring Phys: [id number], Wilbur Div[employer] Professor Omayra Castro RDCS Procedure CPT: Indications: chf Cardiac Hx: Technical Quality: Very technically difficult study Contrast 1: Definity Total Dose (mL): 2 Contrast 2: Total Dose (mL): MEASUREMENTS (Male / Female) Normal Values 2D ECHO LV Diastolic Diameter PLAX 6.0 cm 4.2 - 5.9 / 3.9 - 5.3 cm LV Systolic Diameter PLAX 4.1 cm IVS Diastolic Thickness 1.9 cm 0.6 - 1.0 / 0.6 - 0.9 cm LVPW Diastolic Thickness 1.8 cm 0.6 - 1.0 / 0.6 - 0.9 cm LV Relative Wall Thickness 0.6 RV Internal Dim ED PLAX 3.6 cm LA Systolic Diameter LX 4.0 cm 3.0 - 4.0 / 2.7 - 3.8 cm M-MODE Aortic Root Diameter MM 3.7 cm AV Cusp Separation MM 2.6 cm DOPPLER AV Peak Velocity 138.7 cm/s AV Peak Gradient 7.7 mmHg TR Peak Velocity 226.7 cm/s TR Peak Gradient 20.6 mmHg Right Ventricular Systolic Press 30.6 mmHg FINDINGS Left Ventricle Left ventricular ejection fraction is estimated at 55-60 %. Left ventricular dilatation. Severe concentric left ventricular hypertrophy. Right Ventricle Mild right ventricular dilatation. Right ventricular systolic pressure within normal limits. Right Atrium Right atrium not well visualized. Left Atrium Mild left atrial dilatation. Mitral Valve Structurally normal mitral valve. No mitral stenosis, regurgitation or prolapse. Aortic Valve Trileaflet aortic valve. No aortic valve stenosis or regurgitation. Tricuspid Valve Structurally normal tricuspid valve. Pulmonic Valve Structurally normal pulmonic valve. No pulmonic regurgitation. Pericardium No pericardial effusion. Aorta Aortic root and proximal ascending aorta not well visualized. CONCLUSIONS Extremely difficult study for interpretation and Definity was used Probably normal LV systolic function Poorly visualized intracardiac valves Previewed by: Dr. Tim Chahal MD (Electronically Signed) Final Date: 23 May 2025 12:26
--- NOTE | 2025-05-23 12:37 | P.PN ---
Subjective HISTORY OF PRESENT ILLNESS: This is a 59-year-old male with a past medical history significant for congestive heart failure, LVH, asthma, paroxysmal atrial fibrillation, chronic kidney disease, and obstructive sleep apnea. Patient follows in the office with Dr. Alexis. We have been asked to see the patient in consultation for CHF. Patient examined at the bedside. Patient presented to the hospital with a chief complaint of SOB. Patient also reports increased LE edema. Patient was found to be in acute CHF and was started on IV lasix. Patient reports he has been compliant with his medications. However he states he is not compliant with a low-sodium diet. DIAGNOSTICS: - EKG reveals sinus mechanism with right bundle branch block. - Chest xray cardiomegaly and mild pulmonary vascular congestion. - Laboratory data: WBC 10.27. Hemoglobin 10.7. Platelet count 273. Sodium 138. Potassium 3.7. Troponin negative x 3. proBNP 670. - Current home cardiac medications include Diamox 250 mg twice a day, Aldactone 25 mg daily, metoprolol succinate 50 mg daily, Bumex 1 mg twice a day, Lipitor 10 mg at night, Eliquis 5 mg twice a day. - Most recent echocardiogram obtained in February 2024 reveals ejection fraction 55 to 60%, severe concentric LVH -Patient underwent dobutamine stress test in April 2024 which was negative for ischemia 05/23/2025 Patient examined this morning the bedside. Patient reports improvement in his lower extremity edema. He continues to report shortness of breath. He denies any chest pain or pressure. Echocardiogram completed revealing ejection fraction 55 to 60%. PHYSICAL EXAM: VITAL SIGNS: Reviewed. GENERAL: Well-developed in no acute distress. HEENT: Head is normocephalic. Pupils are equal, round. Sclerae anicteric. Mucous membranes of the mouth are moist. Neck supple. No JVD or thyromegaly LUNGS: Respirations even and unlabored. Lungs diminished with bilateral crackles HEART: Regular rate and rhythm. S1 and S2 heard. ABDOMEN: Soft. Nondistended. Nontender. EXTREMITIES: Normal range of motion. No clubbing or cyanosis. Peripheral pulses intact. Bilateral lower extremity edema noted with chronic skin discoloration NEUROLOGIC: Awake and alert. Oriented x 3. ASSESSMENT: Shortness of breath Acute on chronic heart failure with preserved EF Severe concentric LVH History of asthma Paroxysmal atrial fibrillation Obstructive sleep apnea, noncompliant with CPAP Noncompliance with low-sodium diet PLAN: Reinforced low-sodium diet with patient who verbalized understanding Continue IV Lasix 40 mg. Decrease dose to every 12 hours Daily weights, accurate intake and output, monitoring of kidney function Further recommendations per the patient course Nurse practitioner note has been reviewed by physician. Signing provider agrees with the documented findings, assessment, and plan of care documented by SCREEN PRINTING EQUIPMENT SETTER as a scribe. Objective - Vital Signs Vital signs: Vital Signs Temp 98.0 F 05/23/25 07:00 Pulse 71 05/23/25 07:00 Resp 19 05/23/25 07:00 BP 123/69 05/23/25 07:00 Pulse Ox 96 05/23/25 07:00 FiO2 Intake & Output 05/22/25 05/23/25 05/23/25 18:59 06:59 18:59 Intake Total 550 236 200 Output Total 1999 2900 Balance -1450 -2664 200 Weight 195.045 kg 195.045 kg 193.1 kg Intake: Oral 550 236 200 Output: Urine 1999 2900 Other: Voiding Method Indwelling Catheter - Labs CBC & Chem 7: 05/21/25 18:58 05/23/25 06:42 Labs: Abnormal Lab Results - Last 24 Hours (Table) 05/23/25 Range/Units 06:42 Potassium 3.4 L (3.5-5.1) mmol/L Carbon Dioxide 38 H (22-30) mmol/L Glucose 124 H (74-99) mg/dL Calcium 8.3 L (8.4-10.2) mg/dL
--- NOTE | 2025-05-23 15:20 | P.PN ---
Progress Note - Text Progress Note Date: 05/23/25 Chief Complaint: Chest pain pleasant 59 years old male ,Has a history of COPD, obstructive sleep apnea had a UPPP. Osteoarthritis in multiple joints especially the knees. chronically short of breath. Baseline uses crutches Patient presented with increasing shortness of breath. Some chest pressure. Increasing lower extremity edema. No fever no chills. Appetite fair. Having bowel movements. May 23: Getting IV Lasix. Patient refused to get his Snell catheter taken out. Getting IV Lasix, Diamox, Aldactone. Close to 4 L and negative fluid balance. Eating fair. Active Medications Hydrocodone Bitart/Acetaminophen (Hydrocodone/Apap 5-325mg 1 Each Tab) 1 each PO BID PRN PRN Reason: Pain Last Admin: 05/22/25 20:34 Dose: 1 each Acetazolamide (Acetazolamide 250 Mg Tab) 250 mg PO BID [facility] Last Admin: 05/23/25 08:51 Dose: 250 mg Albuterol Sulfate (Albuterol Nebulized 2.5 Mg/3 Ml) 2.5 mg INHALATION RT-Q4H PRN PRN Reason: Shortness Of Breath Apixaban (Apixaban 5 Mg Tab) 5 mg PO BID [facility]; Protocol Last Admin: 05/23/25 08:51 Dose: 5 mg Ascorbic Acid (Ascorbic Acid 500 Mg Tab) 250 mg PO DAILY [facility] Last Admin: 05/23/25 08:50 Dose: 250 mg Aspirin (Aspirin 81 Mg) 81 mg PO DAILY [facility] Last Admin: 05/23/25 08:51 Dose: 81 mg Atorvastatin [place] (Atorvastatin 10 Mg Tab) 10 mg PO HS [facility] Last Admin: 05/22/25 20:11 Dose: 10 mg Benzonatate (Benzonatate 100 Mg Cap) 100 mg PO TID PRN PRN Reason: Cough Last Admin: 05/21/25 21:05 Dose: 100 mg Budesonide/Formoterol Fumarate (Symbicort 160-4.5 Mcg Inhaler) 2 puff INHALATION RT-BID [facility] Last Admin: 05/23/25 08:20 Dose: 2 puff Ergocalciferol (Ergocalciferol 1,250 Mcg (50,000 Iu) Capsule) 1,250 mcg PO [facility] Ferrous Sulfate (Ferrous Sulfate 325 Mg Tab) 325 mg PO DAILY [facility] Last Admin: 05/23/25 08:50 Dose: 325 mg Furosemide (Furosemide 10 Mg/Ml 4 Ml Vial) 40 mg IV Q12HR [facility] Metoprolol Succinate (Metoprolol Succinate (Er) 50 Mg Tab.Er.24h) 50 mg PO DAILY [facility] Last Admin: 05/23/25 08:51 Dose: 50 mg Montelukast Sodium (Montelukast 10 Mg Tab) 10 mg PO [facility] Last Admin: 05/22/25 20:11 Dose: 10 mg Nystatin (Nystatin 100,000 Unit/Gm Powd 15 Gm) 1 applic TOPICAL TID [facility]; Protocol Last Admin: 05/23/25 08:51 Dose: 1 applic Spironolactone (Spironolactone 25 Mg Tab) 25 mg PO DAILY [facility] Last Admin: 05/23/25 08:50 Dose: 25 mg Tamsulosin HCl (Tamsulosin 0.4 Mg Cap.Er.24h) 0.4 mg PO HS [facility] Last Admin: 05/22/25 20:11 Dose: 0.4 mg Tiotropium [place] (Tiotropium 2.5 Mcg Inhaler) 2 puff INHALATION RT-DAILY [facility] Last Admin: 05/23/25 08:20 Dose: 2 puff Past medical history to include: COPD, osteoarthritis, obstructive sleep apnea with UPPP, dry skin Social history: Lives with brother. Smoked for about 14 years stopped in 2006. Currently not employed. Used to work at [employer]. Physical examination: VITAL SIGNS: 98, 71, 19, 123 x 69, 96% GENERAL: U reclining in bed,-short of breath EYES: Pupils equal. Conjunctiva normal. HEENT: External appearance of nose and ears normal, oral cavity grossly normal. NECK: JVD unable to assess masses not palpable. HEART: Heart sounds muffled; edema present LUNGS: Respiratory rate increased, distant breath sounds. ABDOMEN: Soft, nontender, liver spleen not palpable, no masses palpable. PSYCH: Alert and oriented x3; mood and affect with anxious DERMATOLOGICAL: Probable some chronic changes lower extremity Some redness to the left lower extremity. Cyanosis. Cracking of the heel. Calluses INVESTIGATIONS, reviewed in the clinical context: May 23: Potassium 3.4 creatinine 0.78 May 21: White count 10.2 hemoglobin 10.7 platelets 273 sodium 138 potassium 3.8 creatinine 0.62 Troponin I less than 0.012 x 3 proBNP 670 EKG tracing personally reviewed by me-sinus rhythm. Right bundle jaja block Chest x-ray film personally reviewed by me-portable. Underpenetrated. Previous labs 2D echocardiogram: EF 55 to 60%. Severe concentric LVH. Severely increased septal wall thickness. Assessment and plan: -Possible cor pulmonale acute on chronic: Slow to respond IV Lasix. Fluid restriction - chronic congestive heart failure exacerbation from diastolic dysfunction EF 55 to 60%: Fluid restrict 1500 cc a day Lasix . Aldactone Chronic COPD [no previous smoker] Incruse Ellipta. Advair -Bilateral lower extremity xeroderma, xerosis Topical care -Obesity hypoventilation syndrome/pickwickian syndrome -Obstructive sleep apnea with the patient-previously had UPPP Does not use CPAP because of panic attacks -Paroxysmal atrial fibrillation, currently in sinus rhythm . Toprol-XL 50 mg a day. Eliquis. -Hypertensive heart disease with severe LVH Lopressor -Essential hypertension Lopressor -Intertriginous candidiasis Topical nystatin powder -Bilateral knee arthralgia Tylenol when necessary -Morbid obesity BMI 67.3 Weight loss measures -Chronic lower extremity venous insufficiency with skin changes Kobe wrap -Full code Continue with IV Lasix fluid restriction. Replace potassium Past Medical History Past Medical History: Atrial Fibrillation, Asthma, COPD, GERD/Reflux, Osteoarthritis (OA), Pneumonia, Sleep Apnea/CPAP/BIPAP Additional Past Medical History / Comment(s): JEANIE/unable to tolerate cpap, pneumonias, bronchitis, chronic lower extremity lymphedema/redness/scabs, arthritis in multiple joints/chronic pain/chronic back pain History of Any Multi-Drug Resistant Organisms: None Reported Past Surgical History: Adenoidectomy, Appendectomy, Orthopedic Surgery, Tonsillectomy Additional Past Surgical History / Comment(s): Bilateral knee arthroscopy, UVPPP, carpal tunnel surgery, right shoulder surgery, colonoscopy/benign polypectomy. Past Anesthesia/Blood Transfusion Reactions: No Reported Reaction Past Psychological History: No Psychological Hx Reported Additional Psychological History / Comment(s): Pt has a brother/nephew who live with him. Pt uses crutches to ambulate. Smoking Status: Former smoker Past Alcohol Use History: None Reported Additional Past Alcohol Use History / Comment(s): Pt started smoking in 1979 and quit smoking 12/09/2006. Past Drug Use History: None Reported
[2025-05-23] MEDS: FUROSEMIDE 10 MG/ML 4 ML VIAL IV SCH (19:56)
[2025-05-24 04:16] LABS: African American GFR (CKD) >90 (>60 ml/min/1.73 sqM); Anion Gap 8 mmol/L; Blood Urea Nitrogen 11 mg/dL (9-20); Calcium 8.6 mg/dL (8.4-10.2); Carbon Dioxide 34 mmol/L (22-30); Chloride 96 mmol/L (98-107); Glucose 128 mg/dL (74-99); Non-African American GFR(CKD) >90 (>60 ml/min/1.73 sqM); Potassium 4.0 mmol/L (3.5-5.1); Sodium 138 mmol/L (137-145)
--- NOTE | 2025-05-24 12:20 | P.CONS ---
History of Present Illness - Reason for Consult Consult date: 05/24/25 wound care - History of Present Illness This is a 59-year-old patient being seen 1 for nonhealing ulcerations to the left and right posterior thigh and sacrum area. Patient has 1 open ulcerations to the left posterior thigh that is a cluster of 2 ulcerations measuring approximately 1 x 1 x 0.1 cm with granulation seen throughout patient has moisture excoriation and maceration noted to the periwound of the sacrum and left and right posterior thighs. Patient has history of obesity, Atrial fibrillation, COPD, GERD, sleep apnea. Review Of Systems: Constitutional: No fever, no chills, no night sweats. No weight change. No weakness, fatigue or lethargy. No daytime sleepiness. Integumentary:reports wounds, no lesions. No rash or pruritus. No unusual bruising. No change in hair or nails. Physical exam: General Appearance: Alert, cooperative, no distress, appears stated age. Skin: See HPI all other Skin color, texture, tugor normal, no rashes or lesions. Neurologic: Alert oriented x3 Assessment: 1. Nonhealing ulceration limited to skin breakdown right thigh 2. Nonhealing ulceration with fat layer exposed left posterior thigh new line 3. Stage I pressure ulcer sacrum Plan: 1. Apply honey gel to all open ulcerations and bordered foam to cover. Use zinc barrier cream to the sacrum and periwound. Thank for the consultation any questions please contact the wound care center DNP note has been reviewed and discussed with Dr. Thapa and the impression and plan of care has been directed as dictated. Past Medical History Past Medical History: Atrial Fibrillation, Asthma, COPD, GERD/Reflux, Osteoarthritis (OA), Pneumonia, Sleep Apnea/CPAP/BIPAP Additional Past Medical History / Comment(s): JEANIE/unable to tolerate cpap, pneumonias, bronchitis, chronic lower extremity lymphedema/redness/scabs, arthritis in multiple joints/chronic pain/chronic back pain History of Any Multi-Drug Resistant Organisms: None Reported Past Surgical History: Adenoidectomy, Appendectomy, Orthopedic Surgery, Tonsillectomy Additional Past Surgical History / Comment(s): Bilateral knee arthroscopy, UVPPP, carpal tunnel surgery, right shoulder surgery, colonoscopy/benign polypectomy. Past Anesthesia/Blood Transfusion Reactions: No Reported Reaction Past Psychological History: No Psychological Hx Reported Additional Psychological History / Comment(s): Pt has a brother/nephew who live with him. Pt uses crutches to ambulate. Smoking Status: Former smoker Past Alcohol Use History: None Reported Additional Past Alcohol Use History / Comment(s): Pt started smoking in 1979 and quit smoking 12/09/2006. Past Drug Use History: None Reported - Past Family History Father History Unknown: Yes Family Medical History: Cancer Additional Family Medical History / Comment(s): . Mother History Unknown: Yes Family Medical History: Deep Vein Thrombosis (DVT) Medications and Allergies Home Medications Medication Instructions Recorded Confirmed Type Spironolactone [Aldactone] 25 mg PO DAILY 12/25/20 05/21/25 History Umeclidinium [place] [Incruse 1 puff INHALATION RT-DAILY 12/18/23 05/21/25 History Ellipta] Apixaban [Eliquis] 5 mg PO BID 02/06/24 05/21/25 History Fluticasone Propion/Salmeterol 2 puff INHALATION RT-BID 02/06/24 05/21/25 History [Advair Hfa 230-21 Mcg Inhaler] Atorvastatin [Lipitor] 10 mg PO HS 01/16/25 05/21/25 History Metoprolol Succinate [Toprol XL] 50 mg PO DAILY 01/16/25 05/21/25 History Tamsulosin [Flomax] 0.4 mg PO HS 01/16/25 05/21/25 History Montelukast [Singulair] 10 mg PO HS 02/10/25 05/21/25 History acetaZOLAMIDE [Diamox] 250 mg PO BID 02/10/25 05/21/25 History Albuterol Nebulized [Ventolin 2.5 mg INHALATION RT-Q4H PRN 04/30/25 05/21/25 History Nebulized] Benzonatate [Tessalon Perles] 100 mg PO TID PRN 04/30/25 05/21/25 History Ergocalciferol [Vitamin D2 (1250 1,250 mcg PO TROY 04/30/25 05/21/25 History Mcg = 61539 Iu)] HYDROcodone/APAP 5-325MG [Freeman 1 tab PO BID PRN 04/30/25 05/21/25 History 5-325] Ascorbic Acid [Vitamin C] 250 mg PO DAILY #120 tab 05/02/25 05/21/25 Rx Bumetanide [BUMEX] 1 mg PO BID@0900,1600 #120 tab 05/02/25 05/21/25 Rx Ferrous Sulfate [Feosol] 325 mg PO DAILY #120 tab 05/02/25 05/21/25 Rx Allergies Allergy/AdvReac Type Severity Reaction Status Date / Time isosorbide [From Imdur] AdvReac headache & Verified 05/21/25 20:10 blurred vision Physical Exam Vitals: Vital Signs Temp Pulse Pulse Pulse Resp BP BP 05/24/25 10:22 65 100/61 05/24/25 09:27 98.0 F 75 110/71 05/24/25 08:12 97.8 F 72 101/55 05/24/25 02:00 97.6 F 69 16 121/70 05/23/25 19:58 98.2 F 70 16 118/69 05/23/25 15:00 97.7 F 75 18 112/58 Pulse Ox 05/24/25 10:22 95 05/24/25 09:27 95 05/24/25 08:12 92 L 05/24/25 02:00 90 L 05/23/25 19:58 96 05/23/25 15:00 97 Intake and Output 05/23/25 05/24/25 05/24/25 22:59 06:59 14:59 Intake Total 200 Output Total 1000 Balance -800 Intake: Oral 200 Output: Urine 1000 Other: Voiding Method Indwelling Catheter Results CBC & Chem 7: 05/21/25 18:58 05/24/25 03:37 Labs: Abnormal Lab Results - Last 24 Hours (Table) 05/24/25 Range/Units 03:37 Chloride 96 L (98-107) mmol/L Carbon Dioxide 34 H (22-30) mmol/L Glucose 128 H (74-99) mg/dL Assessment and Plan (1) Non-pressure chronic ulcer of left thigh with fat layer exposed Current Visit: Yes Status: Acute Code(s): L97.122 - NON-PRESSURE CHRONIC ULCER OF LEFT THIGH W FAT LAYER EXPOSED SNOMED Code(s): 29458474933996811 (2) Non-pressure chronic ulcer of right thigh limited to breakdown of skin Current Visit: Yes Status: Acute Code(s): L97.111 - NON-PRS CHRONIC ULCER OF RIGHT THIGH LIMITED TO BRKDWN SKIN SNOMED Code(s): 27504649963590736 (3) Pressure injury of sacral region, stage 1 Current Visit: Yes Status: Acute Code(s): L89.151 - PRESSURE ULCER OF SACRAL REGION, STAGE 1 SNOMED Code(s): 10627040443894
--- NOTE | 2025-05-24 12:20 | P.PN ---
Subjective HISTORY OF PRESENT ILLNESS: This is a 59-year-old male with a past medical history significant for congestive heart failure, LVH, asthma, paroxysmal atrial fibrillation, chronic kidney disease, and obstructive sleep apnea. Patient follows in the office with Dr. Alexis. We have been asked to see the patient in consultation for CHF. Patient examined at the bedside. Patient presented to the hospital with a chief complaint of SOB. Patient also reports increased LE edema. Patient was found to be in acute CHF and was started on IV lasix. Patient reports he has been compliant with his medications. However he states he is not compliant with a low-sodium diet. DIAGNOSTICS: - EKG reveals sinus mechanism with right bundle branch block. - Chest xray cardiomegaly and mild pulmonary vascular congestion. - Laboratory data: WBC 10.27. Hemoglobin 10.7. Platelet count 273. Sodium 138. Potassium 3.7. Troponin negative x 3. proBNP 670. - Current home cardiac medications include Diamox 250 mg twice a day, Aldactone 25 mg daily, metoprolol succinate 50 mg daily, Bumex 1 mg twice a day, Lipitor 10 mg at night, Eliquis 5 mg twice a day. - Most recent echocardiogram obtained in February 2024 reveals ejection fraction 55 to 60%, severe concentric LVH -Patient underwent dobutamine stress test in April 2024 which was negative for ischemia 05/23/2025 Patient examined this morning the bedside. Patient reports improvement in his lower extremity edema. He continues to report shortness of breath. He denies any chest pain or pressure. Echocardiogram completed revealing ejection fraction 55 to 60%. 05/24/2025 Patient examined this morning at bedside. Patient currently denies chest pain or pressure. He reports improvement in his lower extremity edema and shortness of breath. He remains on IV Lasix. BUN 11. Creatinine 0.86. Notified this morning by nursing that patient did have bedbugs upon arrival to the hospital. PHYSICAL EXAM: VITAL SIGNS: Reviewed. GENERAL: Well-developed in no acute distress. HEENT: Head is normocephalic. Pupils are equal, round. Sclerae anicteric. Mucous membranes of the mouth are moist. Neck supple. No JVD or thyromegaly LUNGS: Respirations even and unlabored. Lungs diminished with bilateral crackles HEART: Regular rate and rhythm. S1 and S2 heard. ABDOMEN: Soft. Nondistended. Nontender. EXTREMITIES: Normal range of motion. No clubbing or cyanosis. Peripheral pulses intact. Bilateral lower extremity edema noted with chronic skin discoloration NEUROLOGIC: Awake and alert. Oriented x 3. ASSESSMENT: Shortness of breath Acute on chronic heart failure with preserved EF Severe concentric LVH History of asthma Paroxysmal atrial fibrillation Obstructive sleep apnea, noncompliant with CPAP Noncompliance with low-sodium diet PLAN: Reinforced low-sodium diet with patient who verbalized understanding Continue IV Lasix 40 mg every 12 hours Daily weights, accurate intake and output, monitoring of kidney function Patient to be up in the shower daily Further recommendations per the patient course Nurse practitioner note has been reviewed by physician. Signing provider agrees with the documented findings, assessment, and plan of care documented by PRODUCT DELIVERY SPECIALIST as a scribe. Objective - Vital Signs Vital signs: Vital Signs Temp 98.0 F 05/24/25 09:27 Pulse 65 05/24/25 10:22 Resp 16 05/24/25 02:00 BP 100/61 05/24/25 10:22 Pulse Ox 95 05/24/25 10:22 FiO2 Intake & Output 05/23/25 05/24/25 05/24/25 18:59 06:59 18:59 Intake Total 600 Output Total 1000 Balance 600 -1000 Weight 193.1 kg Intake: Oral 600 Output: Urine 1000 Other: Voiding Method Indwelling Catheter - Labs CBC & Chem 7: 05/21/25 18:58 05/24/25 03:37 Labs: Abnormal Lab Results - Last 24 Hours (Table) 05/24/25 Range/Units 03:37 Chloride 96 L (98-107) mmol/L Carbon Dioxide 34 H (22-30) mmol/L Glucose 128 H (74-99) mg/dL
[2025-05-24 13:22] VITALS: BMI 66.6
[2025-05-24] MEDS: ZINC OXIDE PASTE (Z-GUARD) 1 APPLIC TOPICAL SCH (14:23)
--- NOTE | 2025-05-24 20:03 | P.PN ---
Progress Note - Text Progress Note Date: 05/24/25 Chief Complaint: Chest pain pleasant 59 years old male ,Has a history of COPD, obstructive sleep apnea had a UPPP. Osteoarthritis in multiple joints especially the knees. chronically short of breath. Baseline uses crutches Patient presented with increasing shortness of breath. Some chest pressure. Increasing lower extremity edema. No fever no chills. Appetite fair. Having bowel movements. May 23: Getting IV Lasix. Patient refused to get his Snell catheter taken out. Getting IV Lasix, Diamox, Aldactone. Close to 4 L and negative fluid balance. Eating fair. May 24: Patient seen this morning. Getting IV Lasix. Good urine output. About 5500 cc negative fluid balance. Patient has declined for his Snell catheter to be taken out. Eating well. Patient got wounds on lower back. Including nonhealing ulceration limited to skin breakdown right thigh, left posterior thigh, sacral stage I pressure ulcer. Being followed by the wound care team. Honey gel being applied. Active Medications Hydrocodone Bitart/Acetaminophen (Hydrocodone/Apap 5-325mg 1 Each Tab) 1 each PO BID PRN PRN Reason: Pain Last Admin: 05/23/25 18:51 Dose: 1 each Acetazolamide (Acetazolamide 250 Mg Tab) 250 mg PO BID [facility] Last Admin: 05/24/25 10:12 Dose: 250 mg Albuterol Sulfate (Albuterol Nebulized 2.5 Mg/3 Ml) 2.5 mg INHALATION RT-Q4H PRN PRN Reason: Shortness Of Breath Apixaban (Apixaban 5 Mg Tab) 5 mg PO BID [facility]; Protocol Last Admin: 05/24/25 10:12 Dose: 5 mg Ascorbic Acid (Ascorbic Acid 500 Mg Tab) 250 mg PO DAILY [facility] Last Admin: 05/24/25 10:12 Dose: 250 mg Aspirin (Aspirin 81 Mg) 81 mg PO DAILY [facility] Last Admin: 05/24/25 10:11 Dose: 81 mg Atorvastatin Calcium (Atorvastatin 10 Mg Tab) 10 mg PO HS [facility] Last Admin: 05/23/25 19:56 Dose: 10 mg Benzonatate (Benzonatate 100 Mg Cap) 100 mg PO TID PRN PRN Reason: Cough Last Admin: 05/21/25 21:05 Dose: 100 mg Budesonide/Formoterol Fumarate (Symbicort 160-4.5 Mcg Inhaler) 2 puff INHALATION RT-BID [facility] Last Admin: 05/24/25 08:27 Dose: 2 puff Ergocalciferol (Ergocalciferol 1,250 Mcg (50,000 Iu) Capsule) 1,250 mcg PO TROY [facility] Ferrous Sulfate (Ferrous Sulfate 325 Mg Tab) 325 mg PO DAILY [facility] Last Admin: 05/24/25 10:12 Dose: 325 mg Furosemide (Furosemide 10 Mg/Ml 4 Ml Vial) 40 mg IV Q12HR [facility] Last Admin: 05/24/25 10:12 Dose: 40 mg Metoprolol Succinate (Metoprolol Succinate (Er) 50 Mg Tab.Er.24h) 50 mg PO DAILY [facility] Last Admin: 05/24/25 10:12 Dose: 50 mg Montelukast Sodium (Montelukast 10 Mg Tab) 10 mg [address] [facility] Last Admin: 05/23/25 19:57 Dose: 10 mg Nystatin (Nystatin 100,000 Unit/Gm Powd 15 Gm) 1 applic TOPICAL TID [facility]; Prot ocol Last Admin: 05/24/25 16:48 Dose: 1 applic Petrolatum (Zinc Oxide Paste (Z-Guard) 1 Applic) 1 applic TOPICAL DAILY [facility]; Protocol Last Admin: 05/24/25 14:23 Dose: 1 applic Spironolactone (Spironolactone 25 Mg Tab) 25 mg PO DAILY [facility] Last Admin: 05/24/25 10:12 Dose: 25 mg Tamsulosin HCl (Tamsulosin 0.4 Mg Cap.Er.24h) 0.4 mg PO [facility] Last Admin: 05/23/25 19:57 Dose: 0.4 mg Tiotropium [place] (Tiotropium 2.5 Mcg Inhaler) 2 puff INHALATION RT-DAILY [facility] Last Admin: 05/24/25 08:27 Dose: 2 puff Past medical history to include: COPD, osteoarthritis, obstructive sleep apnea with UPPP, dry skin Social history: Lives with brother. Smoked for about 14 years stopped in 2006. Currently not employed. Used to work at [employer]. Physical examination: VITAL SIGNS: 98, 77, 16, 118 x 77, 92% room air GENERAL: In bed, breathing better EYES: Pupils equal. Conjunctiva normal. HEENT: External appearance of nose and ears normal, oral cavity grossly normal. NECK: JVD unable to assess masses not palpable. HEART: Heart sounds muffled; edema present LUNGS: Respiratory rate increased, distant breath sounds. ABDOMEN: Soft, nontender, liver spleen not palpable, no masses palpable. PSYCH: Alert and oriented x3; mood and affect with anxious DERMATOLOGICAL: Probable some chronic changes lower extremity Some redness to the left lower extremity. Cyanosis. Cracking of the heel. Calluses INVESTIGATIONS, reviewed in the clinical context: May 24: Potassium 4 bicarb 34 creatinine 0.86 May 23: Potassium 3.4 creatinine 0.78 May 21: White count 10.2 hemoglobin 10.7 platelets 273 sodium 138 potassium 3.8 creatinine 0.62 Troponin I less than 0.012 x 3 proBNP 670 EKG tracing personally reviewed by me-sinus rhythm. Right bundle jaja block Chest x-ray film personally reviewed by me-portable. Underpenetrated. Previous labs 2D echocardiogram: EF 55 to 60%. Severe concentric LVH. Severely increased septal wall thickness. Assessment and plan: -Possible cor pulmonale acute on chronic: Improving IV Lasix 40 mg every 12. Fluid restriction - chronic congestive heart failure exacerbation from diastolic dysfunction EF 55 to 60%: Fluid restrict 1500 cc a day Lasix . Aldactone Chronic COPD [no previous smoker] Incruse Ellipta. Advair -Bilateral lower extremity xeroderma, xerosis Topical care -Obesity hypoventilation syndrome/pickwickian syndrome -Obstructive sleep apnea with the patient-previously had UPPP Does not use CPAP because of panic attacks -Paroxysmal atrial fibrillation, currently in sinus rhythm . Toprol-XL 50 mg a day. Eliquis. -Hypertensive heart disease with severe LVH Lopressor -Essential hypertension Lopressor -Intertriginous candidiasis Topical nystatin powder -Bilateral knee arthralgia Tylenol when necessary -Morbid obesity BMI 67.3 Weight loss measures -Chronic lower extremity venous insufficiency with skin changes Kobe wrap -Full code IV Lasix 40 mg every 12. Other 24 hours. Hopefully can be switched over. Past Medical History Past Medical History: Atrial Fibrillation, Asthma, COPD, GERD/Reflux, Osteoarthritis (OA), Pneumonia, Sleep Apnea/CPAP/BIPAP Additional Past Medical History / Comment(s): JEANIE/unable to tolerate cpap, pneumonias, bronchitis, chronic lower extremity lymphedema/redness/scabs, arthritis in multiple joints/chronic pain/chronic back pain History of Any Multi-Drug Resistant Organisms: None Reported Past Surgical History: Adenoidectomy, Appendectomy, Orthopedic Surgery, Tonsillectomy Additional Past Surgical History / Comment(s): Bilateral knee arthroscopy, UVPPP, carpal tunnel surgery, right shoulder surgery, colonoscopy/benign polyp ectomy. Past Anesthesia/Blood Transfusion Reactions: No Reported Reaction Past Psychological History: No Psychological Hx Reported Additional Psychological History / Comment(s): Pt has a brother/nephew who live with him. Pt uses crutches to ambulate. Smoking Status: Former smoker Past Alcohol Use History: None Reported Additional Past Alcohol Use History / Comment(s): Pt started smoking in 1979 and quit smoking 12/09/2006. Past Drug Use History: None Reported
[2025-05-25 08:14] LABS: Anion Gap 8.90 mmol/L (4.00-12.00); BUN/Creat Ratio 15.50 Ratio (12.00-20.00); Blood Urea Nitrogen 12.4 mg/dL (9.0-27.0); Calcium 8.4 mg/dL (8.7-10.3); Carbon Dioxide 32.1 mmol/L (21.6-31.8); Chloride 99 mmol/L (96-109); Glucose 145 mg/dL (70-110); Potassium 3.9 mmol/L (3.5-5.5); Sodium 140 mmol/L (135-145)
--- NOTE | 2025-05-25 10:49 | P.PN ---
Subjective HISTORY OF PRESENT ILLNESS: This is a 59-year-old male with a past medical history significant for congestive heart failure, LVH, asthma, paroxysmal atrial fibrillation, chronic kidney disease, and obstructive sleep apnea. Patient follows in the office with Dr. Alexis. We have been asked to see the patient in consultation for CHF. Patient examined at the bedside. Patient presented to the hospital with a chief complaint of SOB. Patient also reports increased LE edema. Patient was found to be in acute CHF and was started on IV lasix. Patient reports he has been compliant with his medications. However he states he is not compliant with a low-sodium diet. DIAGNOSTICS: - EKG reveals sinus mechanism with right bundle branch block. - Chest xray cardiomegaly and mild pulmonary vascular congestion. - Laboratory data: WBC 10.27. Hemoglobin 10.7. Platelet count 273. Sodium 138. Potassium 3.7. Troponin negative x 3. proBNP 670. - Current home cardiac medications include Diamox 250 mg twice a day, Aldactone 25 mg daily, metoprolol succinate 50 mg daily, Bumex 1 mg twice a day, Lipitor 10 mg at night, Eliquis 5 mg twice a day. - Most recent echocardiogram obtained in February 2024 reveals ejection fraction 55 to 60%, severe concentric LVH -Patient underwent dobutamine stress test in April 2024 which was negative for ischemia 05/23/2025 Patient examined this morning the bedside. Patient reports improvement in his lower extremity edema. He continues to report shortness of breath. He denies any chest pain or pressure. Echocardiogram completed revealing ejection fraction 55 to 60%. 05/24/2025 Patient examined this morning at bedside. Patient currently denies chest pain or pressure. He reports improvement in his lower extremity edema and shortness of breath. He remains on IV Lasix. BUN 11. Creatinine 0.86. Notified this morning by nursing that patient did have bedbugs upon arrival to the hospital. 05/25/2025 Patient examined this morning at the bedside. Patient denies chest pain or pressure. He reports some mild improvement in his lower extremity swelling. He also reports his shortness of breath feels the same as it did yesterday. He remains on IV Lasix 40 mg every 12 hours. BUN 12. Creatinine 0.8. PHYSICAL EXAM: VITAL SIGNS: Reviewed. GENERAL: Well-developed in no acute distress. HEENT: Head is normocephalic. Pupils are equal, round. Sclerae anicteric. Mucous membranes of the mouth are moist. Neck supple. No JVD or thyromegaly LUNGS: Respirations even and unlabored. Lungs diminished with bilateral crackles HEART: Regular rate and rhythm. S1 and S2 heard. ABDOMEN: Soft. Nondistended. Nontender. EXTREMITIES: Normal range of motion. No clubbing or cyanosis. Peripheral pulses intact. Bilateral lower extremity edema noted with chronic skin discoloration NEUROLOGIC: Awake and alert. Oriented x 3. ASSESSMENT: Shortness of breath Acute on chronic heart failure with preserved EF Severe concentric LVH History of asthma Paroxysmal atrial fibrillation Obstructive sleep apnea, noncompliant with CPAP Noncompliance with low-sodium diet PLAN: Reinforced low-sodium diet with patient who verbalized understanding Continue IV Lasix 40 mg every 12 hours Daily weights, accurate intake and output, monitoring of kidney function Patient to be up in the shower daily Further recommendations per the patient course Nurse practitioner note has been reviewed by physician. Signing provider agrees with the documented findings, assessment, and plan of care documented by ACADEMIC AFFAIRS SPECIALIST as a scribe. Objective - Vital Signs Vital signs: Vital Signs Temp 97.7 F 05/25/25 07:23 Pulse 76 05/25/25 07:23 Resp 20 05/25/25 07:23 BP 128/70 05/25/25 07:23 Pulse Ox 98 05/25/25 08:28 FiO2 Intake & Output 05/24/25 05/25/25 05/25/25 18:59 06:59 18:59 Output Total 1400 Balance -1400 Weight 193.1 kg 191 kg Output: Urine 1400 Other: Voiding Method Indwelling Catheter - Labs CBC & Chem 7: 05/21/25 18:58 05/25/25 05:04 Labs: Abnormal Lab Results - Last 24 Hours (Table) 05/25/25 Range/Units 05:04 Carbon Dioxide 32.1 H (21.6-31.8) mmol/L Glucose 145 H (70-110) mg/dL Calcium 8.4 L (8.7-10.3) mg/dL
--- NOTE | 2025-05-25 18:04 | P.PN ---
Progress Note - Text Progress Note Date: 05/25/25 Chief Complaint: Chest pain pleasant 59 years old male ,Has a history of COPD, obstructive sleep apnea had a UPPP. Osteoarthritis in multiple joints especially the knees. chronically short of breath. Baseline uses crutches Patient presented with increasing shortness of breath. Some chest pressure. Increasing lower extremity edema. No fever no chills. Appetite fair. Having bowel movements. May 23: Getting IV Lasix. Patient refused to get his Snell catheter taken out. Getting IV Lasix, Diamox, Aldactone. Close to 4 L and negative fluid balance. Eating fair. May 24: Patient seen this morning. Getting IV Lasix. Good urine output. About 5500 cc negative fluid balance. Patient has declined for his Snell catheter to be taken out. Eating well. Patient got wounds on lower back. Including nonhealing ulceration limited to skin breakdown right thigh, left posterior thigh, sacral stage I pressure ulcer. Being followed by the wound care team. Honey gel being applied. May 25: Patient remains on IV Lasix 40 mg every 12. Negative fluid balance. Eating well. Decrease edema. About 7 L and negative fluid balance. Active Medications Hydrocodone Bitart/Acetaminophen (Hydrocodone/Apap 5-325mg 1 Each Tab) 1 each PO BID PRN PRN Reason: Pain Last Admin: 05/25/25 10:11 Dose: 1 each Acetazolamide (Acetazolamide 250 Mg Tab) 250 mg PO BID [facility] Last Admin: 05/25/25 08:03 Dose: 250 mg Albuterol Sulfate (Albuterol Nebulized 2.5 Mg/3 Ml) 2.5 mg INHALATION RT-Q4H PRN PRN Reason: Shortness Of Breath Apixaban (Apixaban 5 Mg Tab) 5 mg PO BID [facility]; Protocol Last Admin: 05/25/25 08:03 Dose: 5 mg Ascorbic Acid (Ascorbic Acid 500 Mg Tab) 250 mg PO DAILY [facility] Last Admin: 05/25/25 08:03 Dose: 250 mg Aspirin (Aspirin 81 Mg) 81 mg PO DAILY [facility] Last Admin: 05/25/25 08:03 Dose: 81 mg Atorvastatin Calcium (Atorvastatin 10 Mg Tab) 10 mg PO HS [facility] Last Admin: 05/24/25 20:54 Dose: 10 mg Benzonatate (Benzonatate 100 Mg Cap) 100 mg PO TID PRN PRN Reason: Cough Last Admin: 05/21/25 21:05 Dose: 100 mg Budesonide/Formoterol Fumarate (Symbicort 160-4.5 Mcg Inhaler) 2 puff INHALATION RT-BID [facility] Last Admin: 05/25/25 08:27 Dose: 2 puff Ergocalciferol (Ergocalciferol 1,250 Mcg (50,000 Iu) Capsule) 1,250 mcg PO TROY [facility] Ferrous Sulfate (Ferrous Sulfate 325 Mg Tab) 325 mg PO DAILY [facility] Last Admin: 05/25/25 08:03 Dose: 325 mg Furosemide (Furosemide 10 Mg/Ml 4 Ml Vial) 40 mg IV Q12HR [facility] Last Admin: 05/25/25 08:03 Dose: 40 mg Metoprolol Succinate (Metoprolol Succinate (Er) 50 Mg Tab.Er.24h) 50 mg PO DAILY [facility] Last Admin: 05/25/25 08:03 Dose: 50 mg Montelukast Sodium (Montelukast 10 Mg Tab) 10 mg PO HS [facility] Last Admin: 05/24/25 20:54 Dose: 10 mg Nystatin (Nystatin 100,000 Unit/Gm Powd 15 Gm) 1 applic TOPICAL TID [facility]; Protocol Last Admin: 05/25/25 17:04 Dose: Not Given Petrolatum (Zinc Oxide Paste (Z-Guard) 1 Applic) 1 applic TOPICAL DAILY [facility]; Protocol Last Admin: 05/25/25 08:05 Dose: 1 applic Spironolactone (Spironolactone 25 Mg Tab) 25 mg PO DAILY [facility] Last Admin: 05/25/25 08:03 Dose: 25 mg Tamsulosin HCl (Tamsulosin 0.4 Mg Cap.Er.24h) 0.4 mg PO [facility] Last Admin: 05/24/25 20:54 Dose: 0.4 mg Tiotropium [place] (Tiotropium 2.5 Mcg Inhaler) 2 puff INHALATION RT-DAILY [facility] Last Admin: 05/25/25 08:27 Dose: 2 puff Past medical history to include: COPD, osteoarthritis, obstructive sleep apnea with UPPP, dry skin Social history: Lives with brother. Smoked for about 14 years stopped in 2006. Currently not employed. Used to work at [employer]. Physical examination: VITAL SIGNS: 98.4, 84, 18, 124 x 67, 90% room air GENERAL: In bed, breathing better EYES: Pupils equal. Conjunctiva normal. HEENT: External appearance of nose and ears normal, oral cavity grossly normal. NECK: JVD unable to assess masses not palpable. HEART: Heart sounds muffled; edema much decreased LUNGS: Respiratory rate increased, distant breath sounds. ABDOMEN: Soft, nontender, liver spleen not palpable, no masses palpable. PSYCH: Alert and oriented x3; mood and affect, normal DERMATOLOGICAL: Probable some chronic changes lower extremity Some redness to the left lower extremity. Cyanosis. Cracking of the heel. Calluses INVESTIGATIONS, reviewed in the clinical context: May 25: Potassium 3.9 creatinine 0.8 May 24: Potassium 4 bicarb 34 creatinine 0.86 May 23: Potassium 3.4 creatinine 0.78 May 21: White count 10.2 hemoglobin 10.7 platelets 273 sodium 138 potassium 3.8 creatinine 0.62 Troponin I less than 0.012 x 3 proBNP 670 EKG tracing personally reviewed by me-sinus rhythm. Right bundle jaja block Chest x-ray film personally reviewed by me-portable. Underpenetrated. Previous labs 2D echocardiogram: EF 55 to 60%. Severe concentric LVH. Severely increased septal wall thickness. Assessment and plan: -Possible cor pulmonale acute on chronic: Improving IV Lasix 40 mg every 12. Fluid restriction - chronic congestive heart failure exacerbation from diastolic dysfunction EF 55 to 60%: Fluid restrict 1500 cc a day Lasix . Aldactone Chronic COPD [no previous smoker] Incruse Ellipta. Advair -Bilateral lower extremity xeroderma, xerosis Topical care -Obesity hypoventilation syndrome/pickwickian syndrome -Obstructive sleep apnea with the patient-previously had UPPP Does not use CPAP because of panic attacks -Paroxysmal atrial fibrillation, currently in sinus rhythm . Toprol-XL 50 mg a day. Eliquis. -Hypertensive heart disease with severe LVH Lopressor -Essential hypertension Lopressor -Intertriginous candidiasis Topical nystatin powder -Bilateral knee arthralgia Tylenol when necessary -Morbid obesity BMI 67.3 Weight loss measures -Chronic lower extremity venous insufficiency with skin changes Kobe wrap-patient refused -Full code IV Lasix 40 mg every 12. Discussed with patient. Past Medical History Past Medical History: Atrial Fibrillation, Asthma, COPD, GERD/Reflux, Osteoarthritis (OA), Pneumonia, Sleep Apnea/CPAP/BIPAP Additional Past Medical History / Comment(s): JEANIE/unable to tolerate cpap, pneumonias, bronchitis, chronic lower extremity lymphedema/redness/scabs, arthritis in multiple joints/chronic pain/chronic back pain History of Any Multi-Drug Resistant Organisms: None Reported Past Surgical History: Adenoidectomy, Appendectomy, Orthopedic Surgery, Tonsillectomy Additional Past Surgical History / Comment(s): Bilateral knee arthroscopy, UVPPP, carpal tunnel surgery, right shoulder surgery, colonoscopy/benign polypectomy. Past Anesthesia/Blood Transfusion Reactions: No Reported Reaction Past Psychological History: No Psychological Hx Reported Additional Psychological History / Comment(s): Pt has a brother/nephew who live with him. Pt uses crutches to ambulate. Smoking Status: Former smoker Past Alcohol Use History: None Reported Additional Past Alcohol Use History / Comment(s): Pt started smoking in 1979 and quit smoking 12/09/2006. Past Drug Use History: None Reported
--- NOTE | 2025-05-26 11:37 | P.PN ---
Subjective Progress Note Date: 05/26/25 This is a 59-year-old male with a past medical history significant for congestive heart failure, LVH, asthma, paroxysmal atrial fibrillation, chronic kidney disease, and obstructive sleep apnea. Patient follows in the office with Dr. Alexis. We have been asked to see the patient in consultation for CHF. Patient examined at the bedside. Patient presented to the hospital with a chief complaint of SOB. Patient also reports increased LE edema. Patient was found to be in acute CHF and was started on IV lasix. Patient reports he has been compliant with his medications. However he states he is not compliant with a low-sodium diet. DIAGNOSTICS: - EKG reveals sinus mechanism with right bundle branch block. - Chest xray cardiomegaly and mild pulmonary vascular congestion. - Laboratory data: WBC 10.27. Hemoglobin 10.7. Platelet count 273. Sodium 138. Potassium 3.7. Troponin negative x 3. proBNP 670. - Current home cardiac medications include Diamox 250 mg twice a day, Aldactone 25 mg daily, metoprolol succinate 50 mg daily, Bumex 1 mg twice a day, Lipitor 10 mg at night, Eliquis 5 mg twice a day. - Most recent echocardiogram obtained in February 2024 reveals ejection fraction 55 to 60%, severe concentric LVH -Patient underwent dobutamine stress test in April 2024 which was negative for ischemia 05/26/2025 Patient was seen and examined resting in bed. Only complaint this morning is of feeling tired. He does have a history of obstructive sleep apnea and has not been able to tolerate CPAP in the past. He remains on Eliquis 5 mg p.o. twice daily. He remains on Lasix 40 mg IV push every 12 hours. No labs are drawn this morning. Vital signs have been stable. PHYSICAL EXAM: VITAL SIGNS: Reviewed. GENERAL: Well-developed in no acute distress. HEENT: Head is normocephalic. Pupils are equal, round. Sclerae anicteric. Mucous membranes of the mouth are moist. Neck supple. No JVD or thyromegaly LUNGS: Respirations even and unlabored. Lungs diminished with bilateral crackles HEART: Regular rate and rhythm. S1 and S2 heard. ABDOMEN: Soft. Nondistended. Nontender. EXTREMITIES: Normal range of motion. No clubbing or cyanosis. Peripheral pulses intact. Bilateral lower extremity edema noted with chronic skin discoloration NEUROLOGIC: Drowsy. Oriented x 3. ASSESSMENT: Shortness of breath Acute on chronic heart failure with preserved EF Severe concentric LVH History of asthma Paroxysmal atrial fibrillation Obstructive sleep apnea, noncompliant with CPAP Noncompliance with low-sodium diet PLAN: From cardiology's perspective we will obtain labs this morning included lytes BUN and creatinine. Continue to encourage low-sodium diet. We will add Farxiga 10 mg p.o. daily, and discontinue aspirin. Continue IV Lasix. Likely switch to p.o. tomorrow. Continue to follow renal function, electrolytes and accurate intake and output. Encourage him to reconsider CPAP. We will continue to follow the patient and provide further recommendations accordingly. PRINTER ASSISTANT note has been reviewed, I agree with a documented findings and plan of care. Patient was seen and examined. Objective - Vital Signs Vital signs: Vital Signs Temp 98.0 F 05/26/25 07:28 Pulse 75 05/26/25 07:28 Resp 18 05/26/25 07:28 BP 150/70 05/26/25 07:28 Pulse Ox 96 05/26/25 08:06 FiO2 Intake & Output 05/25/25 05/26/25 05/26/25 18:59 06:59 18:59 Intake Total 240 Output Total 1700 1100 500 Balance -1700 -1100 -260 Weight 213.9 kg Intake: Oral 240 Output: Urine 1700 1100 500 Uretheral (Snell) 1100 Other: Voiding Method Indwelling Catheter Indwelling Catheter - Labs CBC & Chem 7: 05/21/25 18:58 05/25/25 05:04
[2025-05-26] MEDS: DAPAGLIFLOZIN PROPANEDIOL 10 MG TABLET PO SCH (12:03)
[2025-05-26 13:03] LABS: African American GFR (CKD) >90 (>60 ml/min/1.73 sqM); Anion Gap 10 mmol/L; Blood Urea Nitrogen 16 mg/dL (9-20); Calcium 8.7 mg/dL (8.4-10.2); Carbon Dioxide 35 mmol/L (22-30); Chloride 95 mmol/L (98-107); Glucose 138 mg/dL (74-99); Non-African American GFR(CKD) >90 (>60 ml/min/1.73 sqM); Sodium 140 mmol/L (137-145)
[2025-05-26 13:06] LABS: Potassium 4.7 mmol/L (3.5-5.1)
--- NOTE | 2025-05-26 18:37 | P.PN ---
Progress Note - Text Progress Note Date: 05/26/25 Chief Complaint: Chest pain pleasant 59 years old male ,Has a history of COPD, obstructive sleep apnea had a UPPP. Osteoarthritis in multiple joints especially the knees. chronically short of breath. Baseline uses crutches Patient presented with increasing shortness of breath. Some chest pressure. Increasing lower extremity edema. No fever no chills. Appetite fair. Having bowel movements. May 23: Getting IV Lasix. Patient refused to get his Snell catheter taken out. Getting IV Lasix, Diamox, Aldactone. Close to 4 L and negative fluid balance. Eating fair. May 24: Patient seen this morning. Getting IV Lasix. Good urine output. About 5500 cc negative fluid balance. Patient has declined for his Snell catheter to be taken out. Eating well. Patient got wounds on lower back. Including nonhealing ulceration limited to skin breakdown right thigh, left posterior thigh, sacral stage I pressure ulcer. Being followed by the wound care team. Honey gel being applied. May 25: Patient remains on IV Lasix 40 mg every 12. Negative fluid balance. Eating well. Decrease edema. About 7 L and negative fluid balance. May 26: IV Lasix 40 mg every 12. Close to 10 L negative fluid balance. Fluid restriction. Eating well. Edema continues to ground. Snell catheter is out. Will switch to home dose of Bumex tomorrow. Plan for discharge tomorrow. Active Medications Hydrocodone Bitart/Acetaminophen (Hydrocodone/Apap 5-325mg 1 Each Tab) 1 each PO BID PRN PRN Reason: Pain Last Admin: 05/26/25 07:49 Dose: 1 each Acetazolamide (Acetazolamide 250 Mg Tab) 250 mg PO BID [facility] Last Admin: 05/26/25 07:41 Dose: 250 mg Albuterol Sulfate (Albuterol Nebulized 2.5 Mg/3 Ml) 2.5 mg INHALATION RT-Q4H PRN PRN Reason: Shortness Of Breath Apixaban (Apixaban 5 Mg Tab) 5 mg PO BID [facility]; Protocol Last Admin: 05/26/25 07:41 Dose: 5 mg Ascorbic Acid (Ascorbic Acid 500 Mg Tab) 250 mg PO DAILY [facility] Last Admin: 05/26/25 07:41 Dose: 250 mg Atorvastatin Calcium (Atorvastatin 10 Mg Tab) 10 mg PO HS [facility] Last Admin: 05/25/25 20:06 Dose: 10 mg Benzonatate (Benzonatate 100 Mg Cap) 100 mg PO TID PRN PRN Reason: Cough Last Admin: 05/21/25 21:05 Dose: 100 mg Budesonide/Formoterol Fumarate (Symbicort 160-4.5 Mcg Inhaler) 2 puff INHALATION RT-BID [facility] Last Admin: 05/26/25 08:06 Dose: 2 puff Dapagliflozin (Dapagliflozin Propanediol 10 Mg Tablet) 10 mg PO DAILY [facility] Last Admin: 05/26/25 12:03 Dose: 10 mg Ergocalciferol (Ergocalciferol 1,250 Mcg (50,000 Iu) Capsule) 1,250 mcg PO TROY [facility] Ferrous Sulfate (Ferrous Sulfate 325 Mg Tab) 325 mg PO DAILY [facility] Last Admin: 05/26/25 07:41 Dose: 325 mg Furosemide (Furosemide 10 Mg/Ml 4 Ml Vial) 40 mg IV Q12HR [facility] Last Admin: 05/26/25 07:42 Dose: 40 mg Metoprolol Succinate (Metoprolol Succinate (Er) 50 Mg Tab.Er.24h) 50 mg PO DAILY [facility] Last Admin: 05/26/25 07:42 Dose: 50 mg Montelukast Sodium (Montelukast 10 Mg Tab) 10 mg PO HS [facility] Last Admin: 05/25/25 20:06 Dose: 10 mg Nystatin (Nystatin 100,000 Unit/Gm Powd 15 Gm) 1 applic TOPICAL TID [facility]; Protocol Last Admin: 05/26/25 15:31 Dose: 1 applic Petrolatum (Zinc Oxide Paste (Z-Guard) 1 Applic) 1 applic TOPICAL DAILY [facility]; Protocol Last Admin: 05/26/25 10:01 Dose: 1 applic Spironolactone (Spironolactone 25 Mg Tab) 25 mg PO DAILY [facility] Last Admin: 05/26/25 07:41 Dose: 25 mg Tamsulosin HCl (Tamsulosin 0.4 Mg Cap.Er.24h) 0.4 mg PO HS [facility] Last Admin: 05/25/25 20:06 Dose: 0.4 mg Tiotropium [place] (Tiotropium 2.5 Mcg Inhaler) 2 puff INHALATION RT-DAILY [facility] Last Admin: 05/26/25 08:06 Dose: 2 puff Past medical history to include: COPD, osteoarthritis, obstructive sleep apnea with UPPP, dry skin Social history: Lives with brother. Smoked for about 14 years stopped in 2006. Currently not employed. Used to work at [employer]. Physical examination: VITAL SIGNS: 97.9, 71, 20, 116 x 71, 92% room air GENERAL: I resting in bed, comfortable EYES: Pupils equal. Conjunctiva normal. HEENT: External appearance of nose and ears normal, oral cavity grossly normal. NECK: JVD unable to assess masses not palpable. HEART: Heart sounds muffled; edema much decreased LUNGS: Respiratory rate increased, distant breath sounds. ABDOMEN: Soft, nontender, liver spleen not palpable, no masses palpable. Snell catheter discontinued PSYCH: Alert and oriented x3; mood and affect, normal DERMATOLOGICAL: Probable some chronic changes lower extremity Some redness to the left lower extremity. Cyanosis. Cracking of the heel. Calluses INVESTIGATIONS, reviewed in the clinical context: May 26: Potassium 4.7 creatinine 0.78 May 21: White count 10.2 hemoglobin 10.7 platelets 273 sodium 138 potassium 3.8 creatinine 0.62 Troponin I less than 0.012 x 3 proBNP 670 EKG tracing personally reviewed by me-sinus rhythm. Right bundle jaja block Chest x-ray film personally reviewed by me-portable. Underpenetrated. Previous labs 2D echocardiogram: EF 55 to 60%. Severe concentric LVH. Severely increased septal wall thickness. Assessment and plan: -Possible cor pulmonale acute on chronic: Improving IV Lasix 40 mg every 12. Fluid restriction Close to 10 L negative fluid balance - chronic congestive heart failure exacerbation from diastolic dysfunction EF 55 to 60%: Fluid restrict 1500 cc a day Lasix . Aldactone Chronic COPD [no previous smoker] Incruse Ellipta. Advair -Bilateral lower extremity xeroderma, xerosis Topical care -Obesity hypoventilation syndrome/pickwickian syndrome -Obstructive sleep apnea with the patient-previously had UPPP Does not use CPAP because of panic attacks -Paroxysmal atrial fibrillation, currently in sinus rhythm . Toprol-XL 50 mg a day. Eliquis. -Hypertensive heart disease with severe LVH Lopressor -Essential hypertension Lopressor -Intertriginous candidiasis Topical nystatin powder -Bilateral knee arthralgia Tylenol when necessary -Morbid obesity BMI 67.3 Weight loss measures -Chronic lower extremity venous insufficiency with skin changes Kobe wrap-patient refused -Full code Will switch to home dose of Bumex tomorrow morning. Discharge home tomorrow. Discussed with patient. Past Medical History Past Medical History: Atrial Fibrillation, Asthma, COPD, GERD/Reflux, Osteoarthritis (OA), Pneumonia, Sleep Apnea/CPAP/BIPAP Additional Past Medical History / Comment(s): JEANIE/unable to tolerate cpap, pneumonias, bronchitis, chronic lower extremity lymphedema/redness/scabs, arthritis in multiple joints/chronic pain/chronic back pain History of Any Multi-Drug Resistant Organisms: None Reported Past Surgical History: Adenoidectomy, Appendectomy, Orthopedic Surgery, Tonsillectomy Additional Past Surgical History / Comment(s): Bilateral knee arthroscopy, UVPPP, carpal tunnel surgery, right shoulder surgery, colonoscopy/benign polypectomy. Past Anesthesia/Blood Transfusion Reactions: No Reported Reaction Past Psychological History: No Psychological Hx Reported Additional Psychological History / Comment(s): Pt has a brother/nephew who live with him. Pt uses crutches to ambulate. Smoking Status: Former smoker Past Alcohol Use History: None Reported Additional Past Alcohol Use History / Comment(s): Pt started smoking in 1979 and quit smoking 12/09/2006. Past Drug Use History: None Reported
[2025-05-27 06:51] LABS: African American GFR (CKD) >90 (>60 ml/min/1.73 sqM); Anion Gap 10 mmol/L; Blood Urea Nitrogen 18 mg/dL (9-20); Calcium 8.9 mg/dL (8.4-10.2); Carbon Dioxide 33 mmol/L (22-30); Chloride 95 mmol/L (98-107); Glucose 130 mg/dL (74-99); Non-African American GFR(CKD) >90 (>60 ml/min/1.73 sqM); Potassium 3.6 mmol/L (3.5-5.1); Sodium 138 mmol/L (137-145)
[2025-05-27] MEDS: BUMETANIDE 1 MG TAB PO SCH (07:39)
--- NOTE | 2025-05-27 10:31 | P.PN ---
Subjective Progress Note Date: 05/27/25 This is a 59-year-old male with a past medical history significant for congestive heart failure, LVH, asthma, paroxysmal atrial fibrillation, chronic kidney disease, and obstructive sleep apnea. Patient follows in the office with Dr. Alexis. We have been asked to see the patient in consultation for CHF. Patient examined at the bedside. Patient presented to the hospital with a chief complaint of SOB. Patient also reports increased LE edema. Patient was found to be in acute CHF and was started on IV lasix. Patient reports he has been compliant with his medications. However he states he is not compliant with a low-sodium diet. DIAGNOSTICS: - EKG reveals sinus mechanism with right bundle branch block. - Chest xray cardiomegaly and mild pulmonary vascular congestion. - Laboratory data: WBC 10.27. Hemoglobin 10.7. Platelet count 273. Sodium 138. Potassium 3.7. Troponin negative x 3. proBNP 670. - Current home cardiac medications include Diamox 250 mg twice a day, Aldactone 25 mg daily, metoprolol succinate 50 mg daily, Bumex 1 mg twice a day, Lipitor 10 mg at night, Eliquis 5 mg twice a day. - Most recent echocardiogram obtained in February 2024 reveals ejection fraction 55 to 60%, severe concentric LVH -Patient underwent dobutamine stress test in April 2024 which was negative for ischemia 05/26/2025 Patient was seen and examined resting in bed. Only complaint this morning is of feeling tired. He does have a history of obstructive sleep apnea and has not been able to tolerate CPAP in the past. He remains on Eliquis 5 mg p.o. twice daily. He remains on Lasix 40 mg IV push every 12 hours. No labs are drawn this morning. Vital signs have been stable. 05/27/2025 Patient was seen and examined resting comfortably in bed. He is more awake today. Labs are stable. He continues to complain of dyspnea on exertion when getting up to the bathroom however feels this is at his baseline. Edema has improved. Tolerating current regimen. He is on oral Bumex. PHYSICAL EXAM: VITAL SIGNS: Reviewed. GENERAL: Well-developed in no acute distress. HEENT: Head is normocephalic. Pupils are equal, round. Sclerae anicteric. Mucous membranes of the mouth are moist. Neck supple. No JVD or thyromegaly LUNGS: Respirations even and unlabored. Lungs diminished with bilateral crackles HEART: Regular rate and rhythm. S1 and S2 heard. ABDOMEN: Soft. Nondistended. Nontender. EXTREMITIES: Normal range of motion. No clubbing or cyanosis. Peripheral pulses intact. Bilateral lower extremity edema noted with chronic skin discoloration NEUROLOGIC: Awake, alert, and oriented x 3. ASSESSMENT: Shortness of breath Acute on chronic heart failure with preserved EF Severe concentric LVH History of asthma Paroxysmal atrial fibrillation Obstructive sleep apnea, noncompliant with CPAP Noncompliance with low-sodium diet PLAN: From cardiology's perspective medications were reviewed and we will continue the same. Continue to encourage low-sodium diet. Encourage him to reconsider CPAP. From our standpoint he is stable for discharge. He will follow-up in the office with Dr. Alexis. Will be evaluated as an outpatient for addition of ARB, ZULEIKA inhibitor or Entresto. PLATFORM BUILDER note has been reviewed, I agree with a documented findings and plan of care. Patient was seen and examined. Objective - Vital Signs Vital signs: Vital Signs Temp 97.2 F L 05/27/25 07:00 Pulse 70 05/27/25 07:00 Resp 17 05/27/25 07:00 BP 126/66 05/27/25 07:00 Pulse Ox 98 05/27/25 08:23 FiO2 Intake & Output 05/26/25 05/27/25 05/27/25 18:59 06:59 18:59 Intake Total 1260 1450 Output Total 1825 700 Balance -565 750 Weight 212.6 kg Intake: Oral 1260 1450 Output: Urine 1825 700 Other: Voiding Method Toilet Urinal # Voids 1 - Labs CBC & Chem 7: 05/21/25 18:58 05/27/25 06:15 Labs: Abnormal Lab Results - Last 24 Hours (Table) 05/26/25 05/27/25 Range/Units 12:28 06:15 Chloride 95 L 95 L (98-107) mmol/L Carbon Dioxide 35 H 33 H (22-30) mmol/L Glucose 138 H 130 H (74-99) mg/dL
[2025-05-27 14:53] VITALS: BP 131/67; PULSE 75; RESP 18; TEMP 98.2
--- NOTE | 2025-05-27 19:59 | P.DS ---
Providers Date of admission: 05/23/25 09:39 Expected date of discharge: 05/27/25 Attending physician: Kiran Quiroz Consults: 05/21/25 20:26 Consult Physician Routine Consulting Provider: Tim Chahal Consult Reason/Comments: chf Do you want consulting provider notified?: Yes Primary care physician: Geovanni Edmondson MD Hospital Course: Chief Complaint: Chest pain pleasant 59 years old male ,Has a history of COPD, obstructive sleep apnea had a UPPP. Osteoarthritis in multiple joints especially the knees. chronically short of breath. Baseline uses crutches Patient presented with increasing shortness of breath. Some chest pressure. Increasing lower extremity edema. No fever no chills. Appetite fair. Having bowel movements. May 23: Getting IV Lasix. Patient refused to get his Snell catheter taken out. Getting IV Lasix, Diamox, Aldactone. Close to 4 L and negative fluid balance. Eating fair. May 24: Patient seen this morning. Getting IV Lasix. Good urine output. About 5500 cc negative fluid balance. Patient has declined for his Snell catheter to be taken out. Eating well. Patient got wounds on lower back. Including nonhealing ulceration limited to skin breakdown right thigh, left posterior thigh, sacral stage I pressure ulcer. Being followed by the wound care team. Honey gel being applied. May 25: Patient remains on IV Lasix 40 mg every 12. Negative fluid balance. Eating well. Decrease edema. About 7 L and negative fluid balance. May 26: IV Lasix 40 mg every 12. Close to 10 L negative fluid balance. Fluid restriction. Eating well. Edema continues to ground. Snell catheter is out. Will switch to home dose of Bumex tomorrow. Plan for discharge tomorrow. May 27: Stable.Edema significantly gone down. Will be discharged on Bumex 1 mg twice daily. Fluid restriction again discussed with the patient. Nurse is arranging for transport. Wound care to continue. Past medical history to include: COPD, osteoarthritis, obstructive sleep apnea with UPPP, dry skin Social history: Lives with brother. Smoked for about 14 years stopped in 2006. Currently not employed. Used to work at [employer]. Physical examination: VITAL SIGNS: 98.2, 75, 18, 131 x 67, 93% 2 L GENERAL: I resting in bed, comfortable EYES: Pupils equal. Conjunctiva normal. HEENT: External appearance of nose and ears normal, oral cavity grossly normal. NECK: JVD unable to assess masses not palpable. HEART: Heart sounds muffled; edema much decreased LUNGS: Respiratory rate increased, distant breath sounds. ABDOMEN: Soft, nontender, liver spleen not palpable, no masses palpable. Snell catheter discontinued PSYCH: Alert and oriented x3; mood and affect, normal DERMATOLOGICAL: Probable some chronic changes lower extremity Some redness to the left lower extremity. Cyanosis. Cracking of the heel. Calluses INVESTIGATIONS, reviewed in the clinical context: May 27: Potassium 3.6 creatinine 0.86 May 26: Potassium 4.7 creatinine 0.78 May 21: White count 10.2 hemoglobin 10.7 platelets 273 sodium 138 potassium 3.8 creatinine 0.62 Troponin I less than 0.012 x 3 proBNP 670 EKG tracing personally reviewed by me-sinus rhythm. Right bundle jaja block Chest x-ray film personally reviewed by me-portable. Underpenetrated. Previous labs 2D echocardiogram: EF 55 to 60%. Severe concentric LVH. Severely increased septal wall thickness. Assessment and plan: -Exacerbation cor pulmonale acute on chronic: Much better IV Lasix 40 mg every 12. Fluid restriction Close to 10 L negative fluid balance Discharge on Bumex 1 mg twice daily - chronic congestive heart failure exacerbation from diastolic dysfunction EF 55 to 60%: Fluid restrict 1500 cc a day Lasix . Aldactone Chronic COPD [no previous smoker] Incruse Ellipta. Advair -Bilateral lower extremity xeroderma, xerosis Topical care -Obesity hypoventilation syndrome/pickwickian syndrome -Obstructive sleep apnea with the patient-previously had UPPP Does not use CPAP because of panic attacks -Paroxysmal atrial fibrillation, currently in sinus rhythm . Toprol-XL 50 mg a day. Eliquis. -Hypertensive heart disease with severe LVH Lopressor -Essential hypertension Lopressor -Intertriginous candidiasis Topical nystatin powder -Bilateral knee arthralgia Tylenol when necessary -Morbid obesity BMI 67.3 Weight loss measures -Chronic lower extremity venous insufficiency with skin changes Kobe wrap-patient refused -Full code Disposition: Home Past Medical History Past Medical History: Atrial Fibrillation, Asthma, COPD, GERD/Reflux, Osteoarthritis (OA), Pneumonia, Sleep Apnea/CPAP/BIPAP Additional Past Medical History / Comment(s): JEANIE/unable to tolerate cpap, pneumonias, bronchitis, chronic lower extremity lymphedema/redness/scabs, arthritis in multiple joints/chronic pain/chronic back pain History of Any Multi-Drug Resistant Organisms: None Reported Past Surgical History: Adenoidectomy, Appendectomy, Orthopedic Surgery, Tonsillectomy Additional Past Surgical History / Comment(s): Bilateral knee arthroscopy, UVPPP, carpal tunnel surgery, right shoulder surgery, colonoscopy/benign polypectomy. Past Anesthesia/Blood Transfusion Reactions: No Reported Reaction Past Psychological History: No Psychological Hx Reported Additional Psychological History / Comment(s): Pt has a brother/nephew who live with him. Pt uses crutches to ambulate. Smoking Status: Former smoker Past Alcohol Use History: None Reported Additional Past Alcohol Use History / Comment(s): Pt started smoking in 1979 and quit smoking 12/09/2006. Past Drug Use History: None Reported Plan - Discharge Summary Discharge Rx Participant: Yes New Discharge Prescriptions: New Dapagliflozin Propanediol [Farxiga] 10 mg PO DAILY #30 tab Nystatin 100,000 Unit/gm Powd [Mycostatin Powder] 1 applic TOPICAL BID #30 each Continue Spironolactone [Aldactone] 25 mg PO DAILY Umeclidinium [place] [Incruse Ellipta] 1 puff INHALATION RT-DAILY Atorvastatin [Lipitor] 10 mg PO HS Albuterol Nebulized [Ventolin Nebulized] 2.5 mg INHALATION RT-Q4H PRN PRN Reason: Shortness Of Breath HYDROcodone/APAP 5-325MG [[place] 5-325] 1 tab PO BID PRN PRN Reason: Pain Bumetanide [BUMEX] 1 mg PO BID@0900,1600 #120 tab Apixaban [Eliquis] 5 mg PO BID Fluticasone Propion/Salmeterol [Advair Hfa 230-21 Mcg Inhaler] 2 puff INHALATION RT-BID Metoprolol Succinate [Toprol XL] 50 mg PO DAILY Tamsulosin [Flomax] 0.4 mg PO HS acetaZOLAMIDE [Diamox] 250 mg PO BID Montelukast [Singulair] 10 mg PO HS Benzonatate [Tessalon Perles] 100 mg PO TID PRN PRN Reason: Cough Ergocalciferol [Vitamin D2 (1250 Mcg = 87967 Iu)] 1,250 mcg PO TROY Ferrous Sulfate [Feosol] 325 mg PO DAILY #120 tab Ascorbic Acid [Vitamin C] 250 mg PO DAILY #120 tab Discharge Medication List Spironolactone [Aldactone] 25 mg PO DAILY 12/25/20 [History] Umeclidinium [place] [Incruse Ellipta] 1 puff INHALATION RT-DAILY 12/18/23 [History] Apixaban [Eliquis] 5 mg PO BID 02/06/24 [History] Fluticasone Propion/Salmeterol [Advair Hfa 230-21 Mcg Inhaler] 2 puff INHALATION RT-BID 02/06/24 [History] Atorvastatin [Lipitor] 10 mg PO HS 01/16/25 [History] Metoprolol Succinate [Toprol XL] 50 mg PO DAILY 01/16/25 [History] Tamsulosin [Flomax] 0.4 mg PO HS 01/16/25 [History] Montelukast [Singulair] 10 mg PO HS 02/10/25 [History] acetaZOLAMIDE [Diamox] 250 mg PO BID 02/10/25 [History] Albuterol Nebulized [Ventolin Nebulized] 2.5 mg INHALATION RT-Q4H PRN 04/30/25 [History] Benzonatate [Tessalon Perles] 100 mg PO TID PRN 04/30/25 [History] Ergocalciferol [Vitamin D2 (1250 Mcg = 61344 Iu)] 1,250 mcg PO TROY 04/30/25 [History] HYDROcodone/APAP 5-325MG [[place] 5-325] 1 tab PO BID PRN 04/30/25 [History] Ascorbic Acid [Vitamin C] 250 mg PO DAILY #120 tab 05/02/25 [Rx] Ferrous Sulfate [Feosol] 325 mg PO DAILY #120 tab 05/02/25 [Rx] Bumetanide [BUMEX] 1 mg PO BID@0900,1600 #120 tab 05/27/25 [Rx] Dapagliflozin Propanediol [Farxiga] 10 mg PO DAILY #30 tab 05/27/25 [Rx] Nystatin 100,000 Unit/gm Powd [Mycostatin Powder] 1 applic TOPICAL BID #30 each 05/27/25 [Rx] Follow up Appointment(s)/Referral(s): Geovanni Edmondson MD [Primary Care Provider] - 1-2 days Rajinder Alexis DO [STAFF PHYSICIAN] - 2 Weeks [facility] [NON-STAFF] - 1 Week Discharge Disposition: HOME SELF-CARE
[2025-05-27] MEDS ORDERED: ERGOCALCIFEROL 1,250 MCG (50,000 IU) CAPSULE PO SCH (20:28)
== END 2025-05-27 15:46 | disposition home or self-care (01) | DRG 291 ==
LOC: EC 17:45 → 6NMEDSUR 20:28 → 1SOBS 05-22 05:47 → OBSVTOIN 05-23 09:39 → 4SSUR 05-24 18:00
PROVIDERS: ADMIT Hospitalist; ATTEND Hospitalist
DX: I13.0 Hypertensive heart and chronic kidney disease with heart failure and stage 1 through stage 4 chronic kidney disease, or unspecified chronic kidney disease (principal); I50.33 Acute on chronic diastolic (congestive) heart failure; E66.2 Morbid (severe) obesity with alveolar hypoventilation; I27.81 Cor pulmonale (chronic); L89.151 Pressure ulcer of sacral region, stage 1; Z68.44 Body mass index [BMI] 60.0-69.9, adult; L97.111 Non-pressure chronic ulcer of right thigh limited to breakdown of skin; I48.0 Paroxysmal atrial fibrillation; B37.2 Candidiasis of skin and nail; L97.122 Non-pressure chronic ulcer of left thigh with fat layer exposed; J44.89 Other specified chronic obstructive pulmonary disease; N18.9 Chronic kidney disease, unspecified; L85.3 Xerosis cutis; F41.0 Panic disorder [episodic paroxysmal anxiety]; M15.9 Polyosteoarthritis, unspecified; I89.0 Lymphedema, not elsewhere classified; Z79.01 Long term (current) use of anticoagulants; I87.2 Venous insufficiency (chronic) (peripheral); Z79.51 Long term (current) use of inhaled steroids; Z79.899 Other long term (current) drug therapy; Z87.891 Personal history of nicotine dependence; Z91.119 Patient's noncompliance with dietary regimen due to unspecified reason; Z88.8 Allergy status to other drugs, medicaments and biological substances
CPT/HCPCS: 36415; 51702; 71046; 80048; 80053; 83605; 83735; 83880; 84484; 85025; 85610; 85730; 93005; 93306; 94640; 94760; 96374; 96376; 99285